=== PATIENT | female | born 1955 | race Caucasian/White ===

== ENCOUNTER → 2016-08-25 | Outpatient (CLI) | payer BC ==
[~2016-08-25] MED LIST: ACYC1CAP8 PO; ASPEC325 PO; ATORVASTATIN PO; CALC1CHW57 PO; CZR50 PO; DESO0.0516 TOP; DORZ1SOL6 OPB; GLIM1TAB2 PO; LEVO75TA33 PO; METF-383 PO; anastrozole PO; timolol OPB
[2016-08-25 13:23] VITALS: BP 125/76; PULSE 77; TEMP 36.6; O2SAT 98
--- NOTE | 2016-08-25 16:44 | Radiation Oncology Follow-Up ---
Radiation Oncology Follow-Up Date of Visit Aug 25, 2016. Reason For Visit Annual follow-up Radiation Completion Date 02/22/2013 Diagnosis (1) Intraductal carcinoma in situ of right breast Status: Resolved Onset Date: 11/08/2012 Stage: 0 Permanent Comment: Abnormal right breast mammogram Biopsy-positive for DCIS Status post lumpectomy with no residual tumor stage pTis NXMX Estrogen receptor positive, progesterone receptor positive Status post completion of radiation therapy 02/22/2013 received 3850 cGy utilizing accelerated partial breast treatment Last Edited By: Daisy Victor on Sep 03, 2015 13:37 Interim History She's been doing well over this past year. She denies any changes to her breast. She has noted no masses or tenderness no change in the axilla. She is up-to-date on mammography. She is on anastrozole and denies side effects. She is up-to-date on gynecologic exams. She now has a new primary care physician. And we're following with Dr. Isaias Templeton. Allergies Coded Allergies: Dorzolamide (Verified Allergy, Unknown, EYE LID SWELLING, 11/21/12) Latanoprost (Verified Allergy, Unknown, EYE LID SWELLING, 11/21/12) Penicillins (Verified Allergy, Unknown, 11/08/12) Thimerosal (Verified Allergy, Unknown, 11/08/12) Timolol (Verified Allergy, Unknown, EYE LID SWELLING, 11/21/12) Home Medications Scheduled Acyclovir (Zovirax), 200 MG PO Q4HR PRN Aspirin (Aspirin *), 325 MG PO DAILY Calcium W/ Vitamins D & K (Calcium + D), 2 TAB PO DAILY Dorzolamide Hcl-Timolol Maleat (Cosopt Oph), 1 DROP OPB BID Glimepiride (Glimepiride), 2 MG PO DAILY Levothyroxine (Levoxyl), 75 MCG PO DAILY Losartan Potassium (Cozaar), 1 TAB PO DAILY Metformin Hcl (Glucophage), 1,000 MG PO BIDM [Atorvastatin], 40 MG PO DAILY [anastrozole], 1 MG PO DAILY Scheduled PRN Desonide (Desonide), 0.05 % TOP BID PRN for rash Review of Systems Gastrointestinal: Symptoms: WNL GI Comments: constipation every few weeks Oral: Symptoms: No Problems Respiratory: Symptoms: WNL Urinary: Symptoms: WNL Skin: Symptoms: No Problems Breast: Right Upper Arm Measurement: 36.5 Right Mid Arm Measurement: 25.0 Right Wrist Measurement: 16.0 Left Upper Arm Measurement: 35.0 Left Mid Arm Measurement: 24.5 Left Wrist Measurement: 16.5 Arm Dominence: Right Physical Exam Vital Signs Date Time Temp Pulse Resp B/P Pulse Ox O2 Delivery O2 Flow Rate FiO2 08/25/16 13:23 36.6 77 18 125/76 98 Pain: Pain Duration: Constant - knows its always there Side: Right Pain Location: None Patient Pain Scale: 0 - 10 Initial Pain Intensity: 0.0 Pain Description: Dull, Aching Fatigue: None General Appearance: no apparent distress Eyes: normal inspection, EOMI ENT: normal ENT inspection, hearing grossly normal Neck: no adenopathy, thyroid normal Respiratory/Chest: lungs clear, no respiratory distress, no accessory muscle use Breast: Breast examination reveals well-healed incision of the right breast. There are no masses or tenderness no axillary adenopathy. She has no skin retractions or nipple changes. There is a tiny area of telangiectasia medial portion of the incision. Using the [place] score cosmesis she has an excellent outcome. Left breast no masses or tenderness and no axillary adenopathy. Cardiovascular: regular rate, rhythm, no gallop, no murmur Abdomen: non tender, soft Extremities: no pedal edema Neurologic/Psychiatric: no motor/sensory deficits, alert, normal mood/affect Skin: warm/dry Lymphatic: no adenopathy Additional Studies BILATERAL DIGITAL DIAGNOSTIC MAMMOGRAM WITH CAD: 11/29/2015 CLINICAL HISTORY: History right breast cancer status post lumpectomy and radiation therapy. Here for short interval follow-up. Comparison is made to exams dated: 05/20/2015 mammogram, 11/16/2014 mammogram, 11/14 mammogram, 05/18/2014 mammogram, 05/16/2013 mammogram, and 10/11/2012 mammogram - [facility]. FINDINGS: Bilateral CC and MLO views and spot magnification right cc and ML views were obtained. There are scattered areas of fibroglandular density in both breasts. Current study was also evaluated with a Computer Aided Detection (CAD) system. Again noted are post surgical changes in the right anterior breast from prior lumpectomy. Spot magnification views of the lumpectomy bed again demonstrate coarse benign dystrophic calcifications. Additionally, two clusters of approximately 2 punctate benign-appearing calcifications seen posterior to the surgical clips are also stable compared to spot magnification views dating back to at least May 2014 and are therefore felt to be benign. The remainder of both breasts are stable compared to prior exams, without suspicious masses, calcifications, or areas of architectural distortion noted. Other scattered benign-appearing calcifications do not appear significantly changed. IMPRESSION: ACR BI-RADS CATEGORY 2: BENIGN Benign-appearing calcifications at the lumpectomy bed in the right breast are stable and considered benign and felt to represent fat necrosis. There is no mammographic evidence of malignancy in either breast. Recommend routine bilateral mammograms in one year. The patient has been verbally notified of the results. Approximately 10% of breast cancers are not detected with mammography. A negative mammographic report should not delay biopsy if a clinically suggestive mass is present. Amanda Christopher M.D. ah/:11/29/2015 10:25:01 Ornamenter: Fatuma ENRIQUEZ(Demarco)(M), [facility] letter sent: Normal 1/2 BI-RADS Code: ACR BI-RADS Category 2: Benign Dictated by: Amanda Christopher MD Signed by: Amanda Christopher MD Assessment & Plan Plan: Continue with scheduled mammography. She'll be having a mammogram in November. Continue regular follow-up with medical oncology, primary care physician, and special educator. We asked her to return to our office in 1 year. We discussed at that time she'll be discharged from our service. She may call our office if she has any questions or concerns in the interim. Total Time In Follow-Up I spent 15 minutes speaking to the patient performing examination. I spent 15 minutes reviewing information and completing this note. Copy To Cathie Mustaaf M.D.; Isaias Templeton M.D.(DAVEY); Shania Coronel CRNP
== END | disposition home or self-care (01) ==
LOC: C.ONC 13:10
PROVIDERS: ATTEND Radiology Radiation Oncology
DX: Z08 Encounter for follow-up examination after completed treatment for malignant neoplasm (principal); Z92.3 Personal history of irradiation; Z85.3 Personal history of malignant neoplasm of breast

== ENCOUNTER → 2016-08-26 | Outpatient (CLI) | payer BC ==
[~2016-08-26] MED LIST changes: -timolol OPB
== END | disposition home or self-care (01) ==
LOC: C.PAPS 15:58
PROVIDERS: ATTEND Obstetrics & Gynecology
DX: C50.519 Malignant neoplasm of lower-outer quadrant of unspecified female breast (principal); Z01.411 Encounter for gynecological examination (general) (routine) with abnormal findings; N95.8 Other specified menopausal and perimenopausal disorders; N95.2 Postmenopausal atrophic vaginitis

== ENCOUNTER → 2017-03-12 | Outpatient (CLI) | payer BC ==
--- NOTE | 2017-03-12 15:33 | MAMMOGRAPHY REPORT ---
BILATERAL DIGITAL SCREENING MAMMOGRAM TOMOSYNTHESIS WITH CAD: 03/12/2017 CLINICAL HISTORY: Asymptomatic. Personal history of breast cancer. TECHNIQUE: Breast tomosynthesis in addition to standard 2D mammography was performed. Current study was also evaluated with a Computer Aided Detection (CAD) system. COMPARISON: Comparison is made to exams dated: 11/29/2015 mammogram, 05/20/2015 mammogram, 11/16/2014 ma mmogram, 05/18/2014 mammogram, 11/14/2013 mammogram, and 05/16/2013 mammogram - [facility]. BREAST COMPOSITION: There are scattered areas of fibroglandular density in both breasts. FINDINGS: No suspicious masses, calcifications, or areas of architectural distortion are noted in ei ther breast. There has been no significant interval change compared to prior exams. There are stable post surgical changes in the right subareolar breast, including stable architectural distortion, maribell gical clips, and benign coarse dystrophic calcifications at the surgical bed. A linear scar marker d enotes a scar on the right anterior breast. IMPRESSION: ACR BI-RADS CATEGORY 2: BENIGN There is no mammographic evidence of malignancy. A 1 year screening mammogram is recommended. The pa tient will receive written notification of the results. Approximately 10% of breast cancers are not detected with mammography. A negative mammographic report should not delay biopsy if a clinically suggestive mass is present. Amanda Christopher M.D. /:03/12/2017 12:16:04 General Purchasing Agent: Fatuma ELDRIDGE)(Massiel), [facility] letter sent: Normal 1/2 BI-RADS Code: ACR BI-RADS Category 2: Benign
== END | disposition home or self-care (01) ==
LOC: C.MAMM 08:37
PROVIDERS: ATTEND Obstetrics & Gynecology
DX: Z12.31 Encounter for screening mammogram for malignant neoplasm of breast (principal); Z85.3 Personal history of malignant neoplasm of breast

== ENCOUNTER → 2017-08-26 | Outpatient (CLI) | payer BC ==
[2016-08-25 13:23] VITALS: BP 125/76; PULSE 77
[~2017-08-26] MED LIST changes: +ACYC-57 PO; -ACYC1CAP8 PO; +CHOL2000 PO; +EMPA1TAB PO; +LRS10 PO
[2017-08-26 13:04] VITALS: BP 118/86; PULSE 100; TEMP 36.9; O2SAT 97
--- NOTE | 2017-08-26 13:45 | Radiation Oncology Follow-Up ---
Radiation Oncology Follow-Up Date of Visit Aug 26, 2017. Reason For Visit Annual follow-up Radiation Completion Date APBI 02/22/13 Diagnosis (1) Intraductal carcinoma in situ of right breast Status: Resolved Onset Date: 11/08/2012 Stage: 0 Permanent Comment: Abnormal right breast mammogram Biopsy-positive for DCIS Status post lumpectomy with no residual tumor stage pTis NXMX Estrogen receptor positive, progesterone receptor positive Status post completion of radiation therapy 02/22/2013 received 3850 cGy utilizing accelerated partial breast treatment Last Edited By: Daisy Victor on Sep 03, 2015 13:37 Interim History She's been doing well over this past year. She denies any changes to her breast. She is noted no masses or tenderness no change in the axilla. She's had no swelling of her arm. She is up-to-date on mammography. She's been having problems with cramping of her shins and calves. She has discussed this with her primary care physician. He increased vitamin D and that is helping. Charley horses occur mainly at night. Allergies Coded Allergies: Dorzolamide (Verified Allergy, Unknown, EYE LID SWELLING, 11/21/12) Latanoprost (Verified Allergy, Unknown, EYE LID SWELLING, 11/21/12) Penicillins (Verified Allergy, Unknown, 11/08/12) Thimerosal (Verified Allergy, Unknown, 11/08/12) Timolol (Verified Allergy, Unknown, EYE LID SWELLING, 11/21/12) Home Medications Scheduled Acyclovir (Zovirax), 200 MG PO Q4HR PRN Aspirin (Aspirin *), 325 MG PO DAILY Baclofen (Baclofen), 1 TAB PO TID Calcium W/ Vitamins D & K (Calcium + D), 2 TAB PO DAILY Cholecalciferol (Vitamin D3), 1 CAP PO DAILY Empagliflozin (Jardiance), 1 TAB PO DAILY Glimepiride (Glimepiride), 2 MG PO DAILY Levothyroxine (Levoxyl), 75 MCG PO DAILY Losartan Potassium (Cozaar), 1 TAB PO DAILY Metformin Hcl (Glucophage), 1,000 MG PO BIDM [Atorvastatin], 40 MG PO DAILY [anastrozole], 1 MG PO DAILY Scheduled PRN Desonide (Desonide), 0.05 % TOP BID PRN for rash Review of Systems Gastrointestinal: Symptoms: Constipation GI Comments: Chronic constipation manageable at home; Oral: Symptoms: No Problems Respiratory: Symptoms: WNL Urinary: Symptoms: WNL Skin: Symptoms: No Problems Breast: Right Upper Arm Measurement: 38.8 Right Mid Arm Measurement: 27.5 Right Wrist Measurement: 16.3 Left Upper Arm Measurement: 37.3 Left Mid Arm Measurement: 27.0 Left Wrist Measurement: 16.5 Arm Dominence: Right Physical Exam Vital Signs Date Time Temp Pulse Resp B/P (MAP) Pulse Ox O2 Delivery O2 Flow Rate FiO2 08/26/17 13:04 36.9 100 20 118/86 97 Fatigue: None General Appearance: no apparent distress Eyes: normal inspection, EOMI ENT: normal ENT inspection, hearing grossly normal Neck: no adenopathy, thyroid normal Respiratory/Chest: lungs clear, no respiratory distress, no accessory muscle use Breast: Breast examination reveals well-healed incisions of the right breast. There are no masses or tenderness and no axillary adenopathy. There is noted mild asymmetry. There are no fibrous changes. Slight telangiectasia. She has tattoos from prior treatment positioning. Using the [place] score cosmesis she has a good outcome. The left breast showed no masses or tenderness and no axillary adenopathy. Cardiovascular: regular rate, rhythm, no gallop, no murmur Extremities: no pedal edema Neurologic/Psychiatric: no motor/sensory deficits, alert, normal mood/affect Skin: warm/dry Pain Management Patient Reports Pain: No Side: Right Pain Location: Calf Patient Preferred Pain Scale: 0 - 10 Initial Pain Intensity: 0.0 Pain Management Plan Pain management is not required by our office. She is following with Dr. Templeton. Vitamin D has been increased and this is helping. Laboratory Laboratory Results: not applicable Pathology Pathology Results: not applicable Imaging Imaging Studies: were reviewed, and pertinent findings noted below Imaging Comments Patient: TYRESE PEÑALOZA [facility] Rec: [id number] Address1: [address] [facility] [address] Address[address]: Acct ID: [id number] Date: 1955 Sex: F Ref Phy: Cathie Ha M.D. Att Phy: Cathie Ha M.D. Grisel Phy: Isaias Templeton M.D.(DAVEY) Inter Phy: Amanda Christopher MD [facility] Zip: [place] [address] SC: [facility] Report #: [id number] Beader: VICENTE Diagnosis: ASYMPTOMATIC, HX OF BREAST CANCER Service Date: 03/12/17 MNE: [id number] Ordering Dr: Cathie Ha M.D. CC: Cathie Ha M.D. CONF: DICTATED BY: Amanda Christopher MD MAMMOGRAPHY REPORT BILATERAL DIGITAL SCREENING MAMMOGRAM TOMOSYNTHESIS WITH CAD: 03/12/2017 CLINICAL HISTORY: Asymptomatic. Personal history of breast cancer. TECHNIQUE: Breast tomosynthesis in addition to standard 2D mammography was performed. Current study was also evaluated with a Computer Aided Detection (CAD ) system. COMPARISON: Comparison is made to exams dated: 11/29/2015 mammogram, 05/20/2015 mammogram, 11/16/2014 mammogram, 05/18/2014 mammogram, 11/14/2013 mammogram, and 05/16 mammogram - [facility]. BREAST COMPOSITION: There are scattered areas of fibroglandular density in both breasts. FINDINGS: No suspicious masses, calcifications, or areas of architectural distortion are noted in either breast. There has been no significant interval change compared to prior exams. There are stable post surgical changes in the right subareolar breast, including stable architectural distortion, surgical clips, and benign coarse dystrophic calcifications at the surgical bed. A linear scar marker denotes a scar on the right anterior breast. IMPRESSION: ACR BI-RADS CATEGORY 2: BENIGN There is no mammographic evidence of malignancy. A 1 year screening mammogram is recommended. The patient will receive written notification of the results. Approximately 10% of breast cancers are not detected with mammography. A negative mammographic report should not delay biopsy if a clinically suggestive mass is present. Amanda Christopher M.D. ah/:03/12/2017 12:16:04 Electric Container Tester: Fatuma ELDRIDGE)(M), [facility] letter sent: Normal 1/2 BI-RADS Code: ACR BI-RADS Category 2: Benign Dictated by: Amanda Christopher MD Signed by: Amanda Christopher MD Assessment & Plan Plan: She will continue annual mammography. Continue regular follow-up with Dr. Templeton. She also follows with medical oncology and her director behavioral health. We discussed stretching exercises to help her calf discomfort. A follow-up appointment with our office was not given. She may call if she has any questions or concerns we will be happy to see her. Total Time In Follow-Up I spent 15 minutes speaking to the patient performing examination. I spent 15 minutes reviewing information and completing this note. Copy To Isaias Templeton M.D.(DAVEY); Shania Coronel CRNP
== END | disposition home or self-care (01) ==
LOC: C.ONC 12:41
PROVIDERS: ATTEND Physician Assistant Medical
DX: Z08 Encounter for follow-up examination after completed treatment for malignant neoplasm (principal); Z92.3 Personal history of irradiation; Z85.3 Personal history of malignant neoplasm of breast

== ENCOUNTER → 2017-09-08 | Outpatient (CLI) | payer BC | END | disposition home or self-care (01) | LOC: C.PAPS 17:56 | PROVIDERS: ATTEND Obstetrics & Gynecology | DX: Z01.419 Encounter for gynecological examination (general) (routine) without abnormal findings (principal); C50.519 Malignant neoplasm of lower-outer quadrant of unspecified female breast; N95.2 Postmenopausal atrophic vaginitis ==

== ENCOUNTER 2018-02-25 10:30 | Inpatient (IN) | payer BC ==
[~2018-02-25] VITALS: Ht 149.9 cm; Wt 87.6 kg
[~2018-02-25 10:30] MED LIST changes: -DORZ1SOL6 OPB
[2018-02-25] MEDS ORDERED: SODIUM CHLORIDE 0.9% 1000ML 500 ML IV STA (10:51)
[2018-02-25] MEDS ORDERED: ONDANSETRON INJ 2 MG/ML 2 ML VIAL IV STA (10:51)
[2018-02-25] MEDS ORDERED: OPTIRAY 320 IV PRN (11:00)
[2018-02-25 11:10] LABS: BASO % 0.4 %; BASO ABS # 0.04 K/uL (0-0.2); EOS % 2.1 %; HEMATOCRIT 37.4 % (37-47); HEMOGLOBIN 12.6 g/dL (12.0-16.0); IG# 0.15 K/uL (0.00-0.02); LYMPH % 17.3 %; LYMPH ABS # 1.65 K/uL (1.2-3.4); MEAN CELL VOLUME 81.1 fL (80-100); MEAN CORPUSCULAR HEMOGLOBIN 27.3 pg (25-34); MEAN CORPUSCULAR HGB CONC 33.7 g/dl (32-36); MEAN PLATELET VOLUME 9.3 fL (7.4-10.4); MONO % 8.3 %; MONO ABS # 0.79 K/uL (0.11-0.59); NEUT % 70.3 %; NEUT ABS # 6.73 K/uL (1.4-6.5); PLATELET COUNT 376 K/uL (130-400); RED CELL DISTRIBUTION WIDTH CV 14.2 % (11.5-14.5); RED CELL DISTRIBUTION WIDTH SD 42.2 fL (36.4-46.3); WHITE BLOOD COUNT 9.56 K/uL (4.8-10.8)
[2018-02-25 11:11] LABS: PTT PATIENT 26.6 SECONDS (21.0-31.0)
[2018-02-25 11:22] LABS: ALBUMIN 3.1 gm/dl (3.4-5.0); CALCIUM 9.2 mg/dl (8.5-10.1); CREATININE 1.09 mg/dl (0.60-1.20); POTASSIUM 2.5 mmol/L (3.5-5.1)
[2018-02-25] MEDS ORDERED: POTASSIUM CHLORIDE 10 MEQ / 100ML WTR IV STA (11:28)
[2018-02-25] MEDS ORDERED: POTASSIUM CHLORIDE 10 MEQ TABCR PO STA ×2 (11:28→17:43)
[2018-02-25 11:31] LABS: TOTAL PROTEIN 7.5 gm/dl (6.4-8.2)
--- NOTE | 2018-02-25 11:45 | DIAGNOSTIC IMAGING REPORT ---
CHEST ONE VIEW PORTABLE CLINICAL HISTORY: 62 years-old Female presenting with EVALUATE ALTERED MENTAL STATUS/WEAKNESS. TECHNIQUE: Portable upright AP view of the chest was obtained. COMPARISON: None. FINDINGS: Cardiomediastinal silhouette normal. Mildly low lung volumes. No focal opacity. No large effusion or pneumothorax. Osseous structures normal. Upper abdomen normal. IMPRESSION: 1. No acute cardiopulmonary disease. Electronically signed by: Jignesh Chapa M.D. 02/25/2018 11:43 AM Dictated Date/Time: 02/25/2018 11:43 AM
--- NOTE | 2018-02-25 12:08 | DIAGNOSTIC IMAGING REPORT ---
ABD/PELVIS IV CONTRAST ONLY CT DOSE: 558.06 mGy.cm HISTORY: ABD PAIN, POSS divertic, IV CONTRAST ONLY TECHNIQUE: Multiaxial CT images of the abdomen and pelvis were performed following the use of intravenous contrast. A dose lowering technique was utilized adhering to the principles of ALARA. COMPARISON STUDY: 01/25/2018 FINDINGS: Lung bases are clear. Liver spleen and pancreas are uniform. A small hiatal hernia. Trace amount of contrast-like material within the distal esophagus and gastric fundus. Large gallstone the region of the gallbladder neck. Pancreas demonstrates no significant abnormality. The adrenal glands are normal. The kidneys are negative for hydronephrosis. Enhancement characteristics are uniform. Findings of acute proximal to mid sigmoid diverticulitis. Moderate pericolonic infiltrative change. Mild wall thickening of the more distal or lower aspect of the sigmoid and rectum suggesting nonspecific colitis. No significant free fluid within the pelvic cul-de-sac. Bladder is midline. IMPRESSION: 1. Acute proximal to mid sigmoid diverticulitis superimposed upon mild generalized sigmoid colitis. 2. No evidence for abscess collection or obstruction. 3. Large gallstone. The above report was generated using voice recognition software. It may contain grammatical, syntax or spelling errors. Electronically signed by: Catrachito Nevarez M.D. 02/25/2018 12:06 PM Dictated Date/Time: 02/25/2018 11:59 AM
[2018-02-25] MEDS ORDERED: METRONIDAZOLE 500MG / 100ML NSS IV STA (12:10)
[2018-02-25] MEDS ORDERED: CIPROFLOXACIN 400MG / 200ML D5W IV STA (12:10)
[2018-02-25] MEDS ORDERED: ACETAMINOPHEN 325 MG TAB PO PRN (13:15)
[2018-02-25] MEDS ORDERED: DICY10CA12 PO (13:19)
[2018-02-25 13:20] VITALS: O2SAT 97; Ht 149.9 cm; Wt 87.6 kg
[2018-02-25] MEDS ORDERED: FIBER PO ×2 (13:34)
--- NOTE | 2018-02-25 13:58 | Gastrointestinal Consultation ---
Gastrointestinal Consultation Date of Consultation: Feb 25, 2018 Consulting Physician: Caesar Chow MD Reason for Consultation: Bloody diarrhea History of Present Illness Patient is a 62 year old female presenting to the ED after a syncopal episode, with an approximate two month hx of bloody diarrhea. She had an initial equivocally positive test for cdiff in December and was prescribed a course of Flagyl. She then was in to see Stacia Rdz NP in our office, for ongoing symptoms. CT scan showed early diverticulitis and she was prescribed a 10 day course of cipro and flagyl. Her symptoms improved only somewhat with the antibiotics, and once she finished them the symptoms worsened again. She reports BMs 10-12 times daily, passing small bits of loose stool and blood. She reports sharp bilateral lower quadrant abdominal pain that has been progressive in the past 2 weeks. She denies any n/v or heartburn. Her appetite is poor and she has lost 20 pounds in the past 6-7 weeks. Last colonoscopy was in [address] Felton, which was normal. Labs today show a normal WBC of 9.56, Hgb of 12.6, BUN of 10 and creat of 1.09. Potassium is low at 2.5. CT scan a/p, shows acute proximal to mid sigmoid diverticulitis superimposed on mild generalized sigmoid colitis. There is a family hx of Crohn's disease in a sister and a cousin. Past Medical/Surgical History Past Medical History: DM, Dyslipidemia, HTN, Hypothyroidism, PE/DVT, Ductal CA in situ of breast Past Surgical History: Tonsillectomy, Appendectomy, Breast biopsy Family History Bleeding disorder Blood clots BROTHER, Crohn's disease SISTER Thromboembolic disease Toxic megacolon FATHER, Social History Smoking Status: Never Smoker Allergies Coded Allergies: Dorzolamide (Verified Allergy, Unknown, EYE LID SWELLING, 02/25/18) Latanoprost (Verified Allergy, Unknown, EYE LID SWELLING, 02/25/18) Penicillins (Verified Allergy, Unknown, 02/25/18) Thimerosal (Verified Allergy, Unknown, 02/25/18) Timolol (Verified Allergy, Unknown, EYE LID SWELLING, 02/25/18) Current Medications Home Meds and Scripts Medications Dose Route/Sig Max Daily Dose Days Date Category Fiber Laxative (Fiber) Ea 1 Tab PO PM 02/25/18 Reported Fiber Laxative (Fiber) Ea 2 Tab PO QAM 02/25/18 Reported Dicyclomine Hcl 10 Mg Cap 1 Cap PO BID 30 02/25/18 Reported Baclofen 10 Mg Tab 1 Tab PO TID PRN 08/26/17 Reported Vitamin D3 (Cholecalciferol) 2,000 Unit Cap 1 Cap PO DAILY 30 08/26/17 Reported Jardiance (Empagliflozin) 10 Mg Tab 1 Tab PO DAILY 08/26/17 Reported Calcium + D (Calcium W/ Vitamins D & K) 1 Chw Chw 2 Tab PO DAILY 09/05/14 Reported [anastrozole] 1 Mg PO DAILY 03/23/14 Reported Cozaar (Losartan Potassium) 50 Mg Tab 1 Tab PO DAILY 09/12/13 Reported [Atorvastatin] 40 Mg PO DAILY 09/12/13 Reported Glimepiride 1 Mg Tab 2 Mg PO DAILY 01/18/13 Reported Glucophage (Metformin Hcl) 850 Mg Tab 1,000 Mg PO BIDM 12/12/12 Reported Aspirin * (Aspirin) 325 Mg Tab 325 Mg PO DAILY 02/09/09 Reported Zovirax (Acyclovir) 200 Mg Cap 200 Mg PO Q4HR PRN 02/09/09 Reported Levoxyl (Levothyroxine Sodium) 0.075 Mg Tab 75 Mcg PO DAILY 02/09/09 Reported Review of Systems Constitutional: No fever, No chills Eyes: No worsening of vision, No eye pain ENT: + problem reported (oral ulcer, bottom lip), No hearing loss Respiratory: No cough, No shortness of breath Cardiac: No chest pain Abdomen: + see HPI Musculoskeletal: No joint pain, No muscle pain Female : No dysuria Neuro: No memory loss Psych: No problem reported Heme: + abnormal bleeding/bruising Endo: No excessive thirst, No excessive urination Skin: No rash, No itch Physical Exam Date Time Temp Pulse Resp B/P (MAP) Pulse Ox O2 Delivery O2 Flow Rate FiO2 02/25/18 13:10 97 26 155/85 100 Room Air 02/25/18 11:23 22 99 Room Air 02/25/18 11:20 95 166/93 107 161/90 110 155/82 02/25/18 11:02 103 02/25/18 10:45 98 Room Air 02/25/18 10:39 36.6 102 18 140/115 97 Room Air 163/105 General Appearance: no apparent distress Eyes: normal inspection ENT: hearing grossly normal, + pertinent finding (oral ulcer, bottom lip) Neck: supple Respiratory/Chest: lungs clear, normal breath sounds, no respiratory distress Cardiovascular: regular rate, rhythm Abdomen: soft, no organomegaly, + abnormal bowel sounds (hyperactive), + tenderness (RLQ/LLQ) Extremities: no pedal edema Neurologic/Psych: alert, normal mood/affect Skin: warm/dry, no rash Laboratory Results Last 24 Hours Test 02/25/18 10:40 02/25/18 10:59 02/25/18 11:25 White Blood Count 9.56 K/uL Red Blood Count 4.61 M/uL Hemoglobin 12.6 g/dL Hematocrit 37.4 % Mean Corpuscular Volume 81.1 fL Mean Corpuscular Hemoglobin 27.3 pg Mean Corpuscular Hemoglobin Concent 33.7 g/dl Platelet Count 376 K/uL Mean Platelet Volume 9.3 fL Neutrophils (%) (Auto) 70.3 % Lymphocytes (%) (Auto) 17.3 % Monocytes (%) (Auto) 8.3 % Eosinophils (%) (Auto) 2.1 % Basophils (%) (Auto) 0.4 % Neutrophils # (Auto) 6.73 K/uL Lymphocytes # (Auto) 1.65 K/uL Monocytes # (Auto) 0.79 K/uL Eosinophils # (Auto) 0.20 K/uL Basophils # (Auto) 0.04 K/uL RDW Standard Deviation 42.2 fL RDW Coefficient of Variation 14.2 % Immature Granulocyte % (Auto) 1.6 % Immature Granulocyte # (Auto) 0.15 K/uL Prothrombin Time 10.4 SECONDS Prothromb Time International Ratio 1.0 Activated Partial Thromboplast Time 26.6 SECONDS Partial Thromboplastin Ratio 1.0 Sodium Level 138 mmol/L Potassium Level 2.5 mmol/L Chloride Level 103 mmol/L Carbon Dioxide Level 20 mmol/L Anion Gap 15.0 mmol/L Blood Urea Nitrogen 10 mg/dl Creatinine 1.09 mg/dl Est Creatinine Clear Calc Drug Dose 49.7 ml/min Estimated GFR () 62.6 Estimated GFR (Non- 54.0 BUN/Creatinine Ratio 9.3 Random Glucose 127 mg/dl Calcium Level 9.2 mg/dl Magnesium Level 1.9 mg/dl Total Bilirubin 0.6 mg/dl Aspartate Amino Transf (AST/SGOT) 19 U/L Alanine Aminotransferase (ALT/SGPT) 11 U/L Alkaline Phosphatase 92 U/L Total Protein 7.5 gm/dl Albumin 3.1 gm/dl Globulin 4.4 gm/dl Albumin/Globulin Ratio 0.7 Thyroid Stimulating Hormone (TSH) 3.350 uIu/ml Free Thyroxine 1.94 ng/dl Bedside Troponin I < 0.030 ng/ml Urine Color YELLOW Urine Appearance CLEAR Urine pH 6.5 Urine Specific [place] 1.022 Urine Protein TRACE Urine Glucose (UA) 3+ Urine Ketones TRACE Urine Occult Blood NEG Urine Nitrite NEG Urine Bilirubin NEG Urine Urobilinogen NEG Urine Leukocyte Esterase NEG Urine WBC (Auto) 1-5 /hpf Urine RBC (Auto) 0-4 /hpf Urine Hyaline Casts (Auto) 0 /lpf Urine Epithelial Cells (Auto) 10-20 /lpf Urine Bacteria (Auto) NEG Urine Yeast (Auto) BUDDING Impression Patient is a 62 year old female admitted with bloody diarrhea and imaging suggestive of diverticulitis Plan Will check another stool for Cdiff. Recommend broad spectrum antibiotics. Monitor and correct electrolytes as appropriate. Colonoscopy in 8 weeks for further evaluation I performed a history and physical examination of the patient, including specifically abdomen is soft, non distended. I have discussed the patient's management with Asia Amezcua PA-C. Please refer to the PA's note for the documented findings and plan of care. 62 F presented with abdominal pain, CT scan showed acute left sided diverticulitis with surrounding colitis. She has some diarrhea with minimal amount of blood. Her H/H is stable and normal with no leukocytosis. Treat with IV ABx. NPO today then clears tomorrow to allow bowel rest. Check C.diff Colonoscopy as OP in 8 weeks.
[2018-02-25 14:35] VITALS: O2SAT 97
--- NOTE | 2018-02-25 14:41 | EMERGENCY ROOM VISIT NOTE ---
History Report prepared by Janett: Ksenia Catalan Under the Supervision of: Dr. John Boyd M.D. First contact with patient: 10:41 Chief Complaint: SYNCOPE (NEAR SYNCOPE) Stated Complaint: NEAR SYNCOPE Nursing Triage Summary: pt reports she was at work (works at [employer]) started to feel like she was going to pass out went and sat down no loc. pt reports legs feels numb and tingly. pt has hx of diabetes, htn, and recently dx with diverticulitis has colonoscopy scheduled next week. History of Present Illness The patient is a 62 year old female who presents to the Emergency Room with complaints of a sudden and currently resolved near syncopal episode that occurred prior to arrival. The patient states that she was standing at work doing her normal work and suddenly felt dizzy. She states that she grabbed the counter and then tried to sit down. She states that she sat down for awhile and as soon as she sat up the episode began to occur again. The patient denies losing consciousness, chest pain, nausea, numbness in her face, weakness in one arm or leg that stood out to her. The patient states that she did feel short of breath and her hands and feet were numb. She states that yesterday she had chills, but states that she recorded her temperature last night and she did not have a fever. The patient states that she has not been eating normally recently. The patient also denies coughing more than usual. She states that she recently had diverticulitis and she currently has 10-12 bowel movements a day that have a large amount of blood in them. She states that she has had bloody bowel movements for several weeks now. She states that she also has pain in her stomach from the diverticulitis. The patient states that she was previously on antibiotics for the diverticulitis, and reports having a colonoscopy scheduled for four days from now. The patient states that she takes aspirin because of a blood clot that she had several years ago. She states that she is allergic to sulfa drugs. The patient states that her PCP is Dr. Templeton with [facility]. Source of History: patient Onset: prior to arrival Position: other (generalized ) Quality: other (near syncope) Timing: resolved Associated Symptoms: + chills, + SOB, + abdominal pain, + numbness (hands and feet), No LOC, No fevers, No cough, No chest pain, No nausea Review of Systems See HPI for pertinent positives & negatives. A total of 10 systems reviewed and were otherwise negative. Past Medical & Surgical Medical Problems: (1) Colitis (2) History of pulmonary embolus (PE) (3) HLD (hyperlipidemia) (4) HTN (hypertension) (5) Hypothyroidism (6) Intraductal carcinoma in situ of right breast (7) Obesity (BMI 30-39.9) (8) T2DM (type 2 diabetes mellitus) Surgical Problems: (1) History of appendectomy (2) History of lumpectomy of right breast (3) History of tonsillectomy (4) Normal colonoscopy Social History Smoking Status: Never Smoker Occupation Status: employed Current/Historical Medications Scheduled Acyclovir (Zovirax), 200 MG PO Q4HR PRN Aspirin (Aspirin *), 325 MG PO DAILY Calcium W/ Vitamins D & K (Calcium + D), 2 TAB PO DAILY Cholecalciferol (Vitamin D3), 1 CAP PO DAILY Dicyclomine Hcl (Dicyclomine Hcl), 1 CAP PO BID Empagliflozin (Jardiance), 1 TAB PO DAILY Fiber Laxative (Fiber Laxative), 2 TAB PO QAM Fiber Laxative (Fiber Laxative), 1 TAB PO PM Glimepiride (Glimepiride), 2 MG PO DAILY Levothyroxine (Levoxyl), 75 MCG PO DAILY Losartan Potassium (Cozaar), 1 TAB PO DAILY Metformin Hcl (Glucophage), 1,000 MG PO BIDM [Atorvastatin], 40 MG PO DAILY [anastrozole], 1 MG PO DAILY Scheduled PRN Baclofen (Baclofen), 1 TAB PO TID PRN for Pain Allergies Coded Allergies: Dorzolamide (Verified Allergy, Unknown, EYE LID SWELLING, 02/25/18) Latanoprost (Verified Allergy, Unknown, EYE LID SWELLING, 02/25/18) Penicillins (Verified Allergy, Unknown, 02/25/18) Thimerosal (Verified Allergy, Unknown, 02/25/18) Timolol (Verified Allergy, Unknown, EYE LID SWELLING, 02/25/18) Physical Exam Vital Signs Date Time Temp Pulse Resp B/P (MAP) Pulse Ox O2 Delivery O2 Flow Rate FiO2 02/25/18 14:12 94 02/25/18 13:10 97 26 155/85 100 Room Air 02/25/18 11:23 22 99 Room Air 02/25/18 11:20 95 166/93 107 161/90 110 155/82 02/25/18 11:02 103 02/25/18 10:45 98 Room Air 02/25/18 10:39 36.6 102 18 140/115 97 Room Air 163/105 Physical Exam GENERAL: Patient is in no acute distress. HEENT: No acute trauma, normocephalic atraumatic, mucous membranes moist, no nasal congestion, no scleral icterus. NECK: No stridor, no adenopathy, no meningismus, trachea is midline. LUNGS: Clear to auscultation bilaterally, no wheeze, no rhonchi, breath sounds equal. HEART: Mildly tachycardic with regular rhythm. No murmurs. ABDOMEN: Soft, bowel sounds positive, no hernias, no peritonitis. Diffusely mildly tender. EXTREMITIES: No cyanosis or edema, full range of motion of all the joints without pain or difficulty, no signs for acute trauma. NEUROLOGIC: Oriented x 3, no acute motor or sensory deficits, no focal weakness. SKIN: No rash, no jaundice, no diaphoresis. Medical Decision & Procedures ER Provider Diagnostic Interpretation: Radiology results as stated below per my review and radiologist interpretation: CHEST ONE VIEW PORTABLE CLINICAL HISTORY: 62 years-old Female presenting with EVALUATE ALTERED MENTAL STATUS/WEAKNESS. TECHNIQUE: Portable upright AP view of the chest was obtained. COMPARISON: None. FINDINGS: Cardiomediastinal silhouette normal. Mildly low lung volumes. No focal opacity. No large effusion or pneumothorax. Osseous structures normal. Upper abdomen normal. IMPRESSION: 1. No acute cardiopulmonary disease. Electronically signed by: Jignesh Chapa M.D. 02/25/2018 11:43 AM Dictated Date/Time: 02/25/2018 11:43 AM ABD/PELVIS IV CONTRAST ONLY CT DOSE: 558.06 mGy.cm HISTORY: ABD PAIN, POSS divertic, IV CONTRAST ONLY TECHNIQUE: Multiaxial CT images of the abdomen and pelvis were performed following the use of intravenous contrast. A dose lowering technique was utilized adhering to the principles of ALARA. COMPARISON STUDY: 01/25/2018 FINDINGS: Lung bases are clear. Liver spleen and pancreas are uniform. A small hiatal hernia. Trace amount of contrast-like material within the distal esophagus and gastric fundus. Large gallstone the region of the gallbladder neck. Pancreas demonstrates no significant abnormality. The adrenal glands are normal. The kidneys are negative for hydronephrosis. Enhancement characteristics are uniform. Findings of acute proximal to mid sigmoid diverticulitis. Moderate pericolonic infiltrative change. Mild wall thickening of the more distal or lower aspect of the sigmoid and rectum suggesting nonspecific colitis. No significant free fluid within the pelvic cul-de-sac. Bladder is midline. IMPRESSION: 1. Acute proximal to mid sigmoid diverticulitis superimposed upon mild generalized sigmoid colitis. 2. No evidence for abscess collection or obstruction. 3. Large gallstone. The above report was generated using voice recognition software. It may contain grammatical, syntax or spelling errors. Electronically signed by: Catrachito Nevarez M.D. 02/25/2018 12:06 PM Dictated Date/Time: 02/25/2018 11:59 AM Laboratory Results 02/25/18 10:40 Red Blood Count 4.61, Mean Corpuscular Volume 81.1, Mean Corpuscular Hemoglobin 27.3, Mean Corpuscular Hemoglobin Concent 33.7, Mean Platelet Volume 9.3, Neutrophils (%) (Auto) 70.3, Lymphocytes (%) (Auto) 17.3, Monocytes (%) (Auto) 8.3, Eosinophils (%) (Auto) 2.1, Basophils (%) (Auto) 0.4, Neutrophils # (Auto) 6.73, Lymphocytes # (Auto) 1.65, Monocytes # (Auto) 0.79, Eosinophils # (Auto) 0.20, Basophils # (Auto) 0.04 02/25/18 10:40 Test 02/25/18 10:40 02/25/18 10:59 02/25/18 11:25 White Blood Count 9.56 K/uL (4.8-10.8) Red Blood Count 4.61 M/uL (4.2-5.4) Hemoglobin 12.6 g/dL (12.0-16.0) Hematocrit 37.4 % (37-47) Mean Corpuscular Volume 81.1 fL (80-100) Mean Corpuscular Hemoglobin 27.3 pg (25-34) Mean Corpuscular Hemoglobin Concent 33.7 g/dl (32-36) Platelet Count 376 K/uL (130-400) Mean Platelet Volume 9.3 fL (7.4-10.4) Neutrophils (%) (Auto) 70.3 % Lymphocytes (%) (Auto) 17.3 % Monocytes (%) (Auto) 8.3 % Eosinophils (%) (Auto) 2.1 % Basophils (%) (Auto) 0.4 % Neutrophils # (Auto) 6.73 K/uL (1.4-6.5) Lymphocytes # (Auto) 1.65 K/uL (1.2-3.4) Monocytes # (Auto) 0.79 K/uL (0.11-0.59) Eosinophils # (Auto) 0.20 K/uL (0-0.5) Basophils # (Auto) 0.04 K/uL (0-0.2) RDW Standard Deviation 42.2 fL (36.4-46.3) RDW Coefficient of Variation 14.2 % (11.5-14.5) Immature Granulocyte % (Auto) 1.6 % Immature Granulocyte # (Auto) 0.15 K/uL (0.00-0.02) Prothrombin Time 10.4 SECONDS (9.0-12.0) Prothromb Time International Ratio 1.0 (0.9-1.1) Activated Partial Thromboplast Time 26.6 SECONDS (21.0-31.0) Partial Thromboplastin Ratio 1.0 Anion Gap 15.0 mmol/L (3-11) Est Creatinine Clear Calc Drug Dose 49.7 ml/min Estimated GFR () 62.6 Estimated GFR (Non- 54.0 BUN/Creatinine Ratio 9.3 (10-20) Calcium Level 9.2 mg/dl (8.5-10.1) Magnesium Level 1.9 mg/dl (1.8-2.4) Total Bilirubin 0.6 mg/dl (0.2-1) Aspartate Amino Transf (AST/SGOT) 19 U/L (15-37) Alanine Aminotransferase (ALT/SGPT) 11 U/L (12-78) Alkaline Phosphatase 92 U/L (45-117) Total Protein 7.5 gm/dl (6.4-8.2) Albumin 3.1 gm/dl (3.4-5.0) Globulin 4.4 gm/dl (2.5-4.0) Albumin/Globulin Ratio 0.7 (0.9-2) Thyroid Stimulating Hormone (TSH) 3.350 uIu/ml (0.300-4.500) Free Thyroxine 1.94 ng/dl (0.80-1.60) Bedside Troponin I < 0.030 ng/ml (0-0.045) Urine Color YELLOW Urine Appearance CLEAR (CLEAR) Urine pH 6.5 (4.5-7.5) Urine Specific [place] 1.022 (1.000-1.030) Urine Protein TRACE (NEG) Urine Glucose (UA) 3+ (NEG) Urine Ketones TRACE (NEG) Urine Occult Blood NEG (NEG) Urine Nitrite NEG (NEG) Urine Bilirubin NEG (NEG) Urine Urobilinogen NEG (NEG) Urine Leukocyte Esterase NEG (NEG) Urine WBC (Auto) 1-5 /hpf (0-5) Urine RBC (Auto) 0-4 /hpf (0-4) Urine Hyaline Casts (Auto) 0 /lpf (0-5) Urine Epithelial Cells (Auto) 10-20 /lpf (0-5) Urine Bacteria (Auto) NEG (NEG) Urine Yeast (Auto) BUDDING (NONE PRSENT) Laboratory results reviewed by me. Medications Administered Medications (Trade) Dose Ordered Sig/Phuong Route Start Time Stop Time Status Last Admin Dose Admin Sodium Chloride 500 ml @ 999 mls/hr Q31M STAT IV 02/25/18 10:51 02/25/18 11:21 DC 02/25/18 11:37 999 MLS/HR Ondansetron HCl (Zofran Inj) 4 mg NOW STAT IV 02/25/18 10:51 02/25/18 10:55 DC 02/25/18 11:36 4 MG Potassium Chloride (Klor-Con M10) 40 meq NOW STAT PO 02/25/18 11:28 02/25/18 11:29 DC 02/25/18 11:36 40 MEQ Potassium Chloride (KCL 10 mEq / WTR) 10 meq NOW STAT IV 02/25/18 11:28 02/25/18 11:29 DC 02/25/18 11:36 10 MEQ Ciprofloxacin/ Dextrose (Cipro / D5W) 400 mg NOW STAT IV 02/25/18 12:10 02/25/18 12:11 DC 02/25/18 13:10 400 MG Metronidazole (Flagyl / Nss) 500 mg NOW STAT IV 02/25/18 12:10 02/25/18 12:11 DC 02/25/18 13:09 500 MG ECG Per My Interpretation Indication: syncope (near syncope) Rate (beats per minute): 105 Rhythm: sinus tachycardia Findings: other (No ST elevation, no PVCs) ED Course 1044: The patient was evaluated in room B7. A complete history and physical exam was performed. 1051: Ordered Zofran Inj 4 mg IV and Sodium Chloride 500 ml @ 999 mls/hr IV. 1128: Ordered Potassium Chloride 10 meq IV and Potassium Chloride 40 meq PO. 1133: Orthostatic vital signs are negative. 1210: Ordered Metronidazole 500 mg IV and Ciprofloxacin/Dextrose 400 mg IV. 1215: I updated the patient. 1218: I spoke with Rhea Echavarria. She will evaluate the patient further. Medical Decision Possible differential diagnoses include: Anemia, dehydration, UTI, electrolyte imbalance, stroke, diverticulitis, and GI bleed. There is no leukocytosis or concerning anemia. No kidney failure. Potassium was quite low at 2.5. No hepatitis. The patient appears to be in a euthyroid state. EKG showed a sinus tachycardia, no acute ischemia. Cardiac enzyme testing 1 is not consistent with acute cardiac injury. Orthostatic vital signs were negative. Urinalysis does not show infection. Chest film does not show pneumonia or CHF. Abdominal and pelvis CT shows diverticulitis, no bowel obstruction, no mention of abscess. The patient received IV saline. She received IV and oral potassium. She was given IV Cipro and IV Flagyl. She received IV Zofran. The patient presents with a near syncopal episode. She has been having some bloody stool. She has diverticulitis by workup. She has a markedly low potassium. I do think a hospital stay is warranted. I spoke to the patient and case management. The on-call hospitalist was consulted. Medication Reconcilliation Current Medication List: was personally reviewed by me Blood Pressure Screening Patient's blood pressure: Elevated blood pressure (referred to hospitalist) Impression Primary Impression: Hypokalemia Additional Impressions: Near syncope Diverticulitis Bloody stool Scribe Attestation The scribe's documentation has been prepared under my direction and personally reviewed by me in its entirety. I confirm that the note above accurately reflects all work, treatment, procedures, and medical decision making performed by me. Departure Information Dispostion Being Evaluated By Hospitalist Referrals Isaias Templeton M.D.(DAVEY) (PCP) Patient Instructions My [facility] Problem Qualifiers
[2018-02-25 15:00] VITALS: BP 163/90; PULSE 93; TEMP 37; O2SAT 95
[2018-02-25] MEDS ORDERED: NSS + 20MEQ KCL 1000ML 1,000 ML IV SCH (15:00)
--- NOTE | 2018-02-25 15:21 | History and Physical ---
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 Sister and brother in law at bedside. Initially patient thought she picked up a, "GI bug," however symptoms continued. Presented to PCP office 01/05 in which there was concern for cdiff, patient placed on course of flagyl. Stool studies were indeterminate therefore referred to GI. At the time she was having bloody, bright red, mucous diarrhea, 10-15 episodes daily for 4 weeks. She also had lower abdominal discomfort, "like two fists," constant. On was seen by MARK Perera in which stool studies for enteric pathogens/cdiff were done and negative. CT scan of abd/pelvis showed early proximal sigmoid diverticulitis. She was placed on course of cipro/flagyl for 10 days with no relief. Further prescribed bentyl 10mg po bid prn which did alleviate abdominal discomfort. Today she was working in which she felt like she could, "pass out." Sx occurred while standing, therefore sat down, tried to stand again and became lightheaded. EMS was then summoned. She has been having blood, mucous, diarrhea for 9 weeks, 10-15 episodes daily. Complains of constant abdominal discomfort, lower, rated 5/10, nothing made worse, made better with bentyl. Has tried nothing OTC. Last new medication was Jardiance which started at end of November. Appetite overall decreased, nothing tastes good. Approx 20lb weight loss. Denies f/c/s, chest pain, sob, palpitations, nausea, emesis. Also complains of pins/needles sensation in fingers and toes for past 2- 3 days. Sister elicits she has history of Crohns disease. Patient is scheduled for outpatient colonoscopy on 03/01/18. In ED patient was noted to be hypokalemic, with potassium 2.5. Her hemoglobin and hematocrit was stable at 12 and 36, WBC 9.5, glucose 127, ecg noted sinus tachycardia with vent rate 105bpm, no st-twave changes noted. CT scan abdominal revealed sigmoid diverticulitis/colitis. She was given 40 Meq potassium orally and 10 meq via IV. Started on IV fluid as well as IV Cipro and Flagyl. She will be admitted for further assessment and treatment of Colitis and electrolyte abnormalities. Past Medical/Surgical History MMedical Problems: (1) History of pulmonary embolus (PE) Permanent Comment: dx in 2001, unprovoked Status: Chronic (2) HLD (hyperlipidemia) Status: Chronic (3) HTN (hypertension) Status: Chronic (4) Hypothyroidism Status: Chronic (5) Intraductal carcinoma in situ of right breast Permanent Comment: Abnormal right breast mammogram Biopsy-positive for DCIS Status post lumpectomy with no residual tumor stage pTis NXMX Estrogen receptor positive, progesterone receptor positive Status post completion of radiation therapy 02/22/2013 received 3850 cGy utilizing accelerated partial breast treatment Status: Resolved (6) Obesity (BMI 30-39.9) Status: Chronic (7) T2DM (type 2 diabetes mellitus) Status: Chronic Surgical Problems: (1) History of appendectomy Status: Chronic (2) History of lumpectomy of right breast Permanent Comment: + [facility]/[place] + in 10/2012 s/p RT Status: Chronic (3) History of tonsillectomy Status: Chronic (4) Normal colonoscopy Permanent Comment: Last in 2014, Dr. Zamudio Status: Chronic Family History Bleeding disorder Blood clots BROTHER, Crohn's disease SISTER Thromboembolic disease Toxic megacolon FATHER, Social History Smoking Status: Never Smoker Smokeless Tobacco Use: No Alcohol Use: none Drug Use: none Marital Status: single Housing status: lives alone Immunizations History of Influenza Vaccine: Yes Influenza Vaccine Date: Mar 29, 2017 History of Tetanus Vaccine?: Yes Tetanus Immunization Date: Jun 16, 2012 History of Pneumococcal: Yes History of Hepatitis B Vaccine: Yes Allergies Coded Allergies: Dorzolamide (Verified Allergy, Unknown, EYE LID SWELLING, 02/25/18) Latanoprost (Verified Allergy, Unknown, EYE LID SWELLING, 02/25/18) Penicillins (Verified Allergy, Unknown, 02/25/18) Thimerosal (Verified Allergy, Unknown, 02/25/18) Timolol (Verified Allergy, Unknown, EYE LID SWELLING, 02/25/18) Home Medications Scheduled Acyclovir (Zovirax), 200 MG PO Q4HR PRN Aspirin (Aspirin *), 325 MG PO DAILY Calcium W/ Vitamins D & K (Calcium + D), 2 TAB PO DAILY Cholecalciferol (Vitamin D3), 1 CAP PO DAILY Dicyclomine Hcl (Dicyclomine Hcl), 1 CAP PO BID Empagliflozin (Jardiance), 1 TAB PO DAILY Fiber Laxative (Fiber Laxative), 2 TAB PO QAM Fiber Laxative (Fiber Laxative), 1 TAB PO PM Glimepiride (Glimepiride), 2 MG PO DAILY Levothyroxine (Levoxyl), 75 MCG PO DAILY Losartan Potassium (Cozaar), 1 TAB PO DAILY Metformin Hcl (Glucophage), 1,000 MG PO BIDM [Atorvastatin], 40 MG PO DAILY [anastrozole], 1 MG PO DAILY Scheduled PRN Baclofen (Baclofen), 1 TAB PO TID PRN for Pain Review of Systems As noted per HPI, 10 systems reviewed and negative unless noted above. Physical Exam Vital Signs Date Time Temp Pulse Resp B/P (MAP) Pulse Ox O2 Delivery O2 Flow Rate FiO2 02/25/18 13:10 97 26 155/85 100 Room Air 02/25/18 11:23 22 99 Room Air 02/25/18 11:20 95 166/93 107 161/90 110 155/82 02/25/18 11:02 103 02/25/18 10:45 98 Room Air 02/25/18 10:39 36.6 102 18 140/115 97 Room Air 163/105 General Appearance: WD/WN, no apparent distress, + obese Head: normocephalic, atraumatic Eyes: normal inspection, sclerae normal ENT: normal ENT inspection, hearing grossly normal, pharynx normal, + pertinent finding (Mucous membranes moist) Neck: supple, no adenopathy, thyroid normal, no JVD, no carotid bruits, trachea midline Respiratory/Chest: chest non-tender, lungs clear, normal breath sounds, no respiratory distress, no accessory muscle use Cardiovascular: no edema (Obese lower extremities), no gallop, no JVD, no murmur, normal peripheral pulses, + tachycardia (With regular rhythm) Abdomen/GI: normal bowel sounds, soft, no organomegaly, + tenderness (Right lower quadrant and left lower quadrant, no rebound, no guarding, no rigidity or firmness) Back: normal inspection, no muscle spasm, normal range of motion Extremities/Musculoskelatal: normal inspection, no calf tenderness, normal capillary refill, no pedal edema, normal range of motion 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, no motor/sensory deficits, alert, normal mood/affect, oriented x 3 Skin: normal color, warm/dry Diagnostics Laboratory Results Results Past 24 Hours Test 02/25/18 10:40 02/25/18 10:59 02/25/18 11:25 Range/Units White Blood Count 9.56 4.8-10.8 K/uL Red Blood Count 4.61 4.2-5.4 M/uL Hemoglobin 12.6 12.0-16.0 g/dL Hematocrit 37.4 37-47 % Mean Corpuscular Volume 81.1 80-100 fL Mean Corpuscular Hemoglobin 27.3 25-34 pg Mean Corpuscular Hemoglobin Concent 33.7 32-36 g/dl Platelet Count 376 130-400 K/uL Mean Platelet Volume 9.3 7.4-10.4 fL Neutrophils (%) (Auto) 70.3 % Lymphocytes (%) (Auto) 17.3 % Monocytes (%) (Auto) 8.3 % Eosinophils (%) (Auto) 2.1 % Basophils (%) (Auto) 0.4 % Neutrophils # (Auto) 6.73 1.4-6.5 K/uL Lymphocytes # (Auto) 1.65 1.2-3.4 K/uL Monocytes # (Auto) 0.79 0.11-0.59 K/uL Eosinophils # (Auto) 0.20 0-0.5 K/uL Basophils # (Auto) 0.04 0-0.2 K/uL RDW Standard Deviation 42.2 36.4-46.3 fL RDW Coefficient of Variation 14.2 11.5-14.5 % Immature Granulocyte % (Auto) 1.6 % Immature Granulocyte # (Auto) 0.15 0.00-0.02 K/uL Prothrombin Time 10.4 9.0-12.0 SECONDS Prothromb Time International Ratio 1.0 0.9-1.1 Activated Partial Thromboplast Time 26.6 21.0-31.0 SECONDS Partial Thromboplastin Ratio 1.0 Sodium Level 138 136-145 mmol/L Potassium Level 2.5 3.5-5.1 mmol/L Chloride Level 103 98-107 mmol/L Carbon Dioxide Level 20 21-32 mmol/L Anion Gap 15.0 3-11 mmol/L Blood Urea Nitrogen 10 7-18 mg/dl Creatinine 1.09 0.60-1.20 mg/dl Est Creatinine Clear Calc Drug Dose 49.7 ml/min Estimated GFR () 62.6 Estimated GFR (Non- 54.0 BUN/Creatinine Ratio 9.3 10-20 Random Glucose 127 70-99 mg/dl Calcium Level 9.2 8.5-10.1 mg/dl Magnesium Level 1.9 1.8-2.4 mg/dl Total Bilirubin 0.6 0.2-1 mg/dl Aspartate Amino Transf (AST/SGOT) 19 15-37 U/L Alanine Aminotransferase (ALT/SGPT) 11 12-78 U/L Alkaline Phosphatase 92 45-117 U/L Total Protein 7.5 6.4-8.2 gm/dl Albumin 3.1 3.4-5.0 gm/dl Globulin 4.4 2.5-4.0 gm/dl Albumin/Globulin Ratio 0.7 0.9-2 Thyroid Stimulating Hormone (TSH) 3.350 0.300-4.500 uIu/ml Free Thyroxine 1.94 0.80-1.60 ng/dl Bedside Troponin I < 0.030 0-0.045 ng/ml Urine Color YELLOW Urine Appearance CLEAR CLEAR Urine pH 6.5 4.5-7.5 Urine Specific [place] 1.022 1.000-1.030 Urine Protein TRACE NEG Urine Glucose (UA) 3+ NEG Urine Ketones TRACE NEG Urine Occult Blood NEG NEG Urine Nitrite NEG NEG Urine Bilirubin NEG NEG Urine Urobilinogen NEG NEG Urine Leukocyte Esterase NEG NEG Urine WBC (Auto) 1-5 0-5 /hpf Urine RBC (Auto) 0-4 0-4 /hpf Urine Hyaline Casts (Auto) 0 0-5 /lpf Urine Epithelial Cells (Auto) 10-20 0-5 /lpf Urine Bacteria (Auto) NEG NEG Urine Yeast (Auto) BUDDING NONE PRSENT Microbiology Results 02/25/18 Urine Culture, Received Pending Diagnostic Radiology CT Scan Abd/Pelvis: IMPRESSION: 1. Acute proximal to mid sigmoid diverticulitis superimposed upon mild generalized sigmoid colitis. 2. No evidence for abscess collection or obstruction. 3. Large gallstone. 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 Her hemoglobin and hematocrit was stable at 12 and 36, WBC 9.5, glucose 127, ecg noted sinus tachycardia with vent rate 105bpm, no st-twave changes noted. CT scan abdominal revealed sigmoid diverticulitis/colitis. She was given 40 Meq potassium orally and 10 meq via IV. Started on IV fluid as well as IV Cipro and Flagyl. She will be admitted for further assessment and treatment of Colitis and electrolyte abnormalities. Acute sigmoid diverticulitis/colitis Abdominal pain Bloody Diarrhea failed outpatient course of Flagyl x 10 days, and Cipro/Flagyl x 10 days concern for other etiologies of colitis -admit to med/surg telemetry -NPO except meds -consulted GI, spoke with HANG Cartwright who recommended starting IV Ertapenem 1g daily -IVF with 20meq K 100cc/hr -repeat cbc, bmp 1600 Hypokalemia secondary to diarrhea Was given 40meq po and 10meq via IV in ED -Place on IVF 100cc/hr with 20meq K -repeat bmp at 1600 and replete as necessary T2DM -hold all oral hypoglycemics including Metformin, jardiance and amaryl -hold off on adding SQ insulin until potassium is repleted -check accu checks AC/HS -Last A1C 7.3 on 09/25/17, repeat A1C -on ARB for renal protection HTN -continue losartan HLD -continue lipitor Hypothyroidism -continue levothyroxine -TSH 3.3, Free T4 1.94 Hx of 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 Monitor CBC ADDENDUM: This is a 62 year old female with a past medical history of recurrent diverticulitis, DM2, HTN, HLD - presents with bloody diarrhea, numbness/ tingling of the hands. On presentation, noted to have low K. Given Potassium replacement. Abdominal CT performed showing acute diverticulitis Plan: monitor K after supplementing NPO for now, IV fluids Invanz, will likely need for 14 days colonoscopy in 6-8 weeks Resuscitation Status Full code Spoke with Patient and Sister at bedside. Has living will and advance directives. Requested family to bring in. VTE Prophylaxis Will order VTE Prophylaxis: Yes (SCDS for now)
[2018-02-25 16:12] LABS: HEMATOCRIT 34.8 % (37-47); HEMOGLOBIN 11.5 g/dL (12.0-16.0); MEAN CELL VOLUME 81.7 fL (80-100); MEAN PLATELET VOLUME 9.3 fL (7.4-10.4); PLATELET COUNT 351 K/uL (130-400); RED CELL DISTRIBUTION WIDTH CV 14.2 % (11.5-14.5); RED CELL DISTRIBUTION WIDTH SD 42.3 fL (36.4-46.3); WHITE BLOOD COUNT 8.97 K/uL (4.8-10.8)
[2018-02-25] MEDS: ERTAPENEM IV 1,000 MG in SODIUM CHLORIDE 0.9% 50ML 50 ML IV SCH (16:39)
[2018-02-25 16:43] LABS: CALCIUM 8.6 mg/dl (8.5-10.1); CREATININE 0.81 mg/dl (0.60-1.20)
[2018-02-25 17:06] LABS: POTASSIUM 2.9 mmol/L (3.5-5.1)
[2018-02-25] MEDS ORDERED: DEXTROSE 50% 50 ML SYR ONE (18:26)
[2018-02-25] MEDS: POTASSIUM CHLR 10 MEQ / WTR 100 ML IV SCH ×2 (18:29→19:18)
[2018-02-25] MEDS ORDERED: POTASSIUM CHLORIDE 20 MEQ TABCR PO STA (18:31)
[2018-02-25 19:14] VITALS: BP 142/89; PULSE 93; TEMP 36.7; O2SAT 94
[2018-02-25] MEDS: D5W AND 1/2NSS + 20MEQ KCL 1,000 ML IV SCH (19:19)
[2018-02-25] MEDS: DICYCLOMINE HCL 10 MG CAP PO SCH (21:27)
[2018-02-25 23:27] VITALS: BP 121/70; PULSE 96; TEMP 36.8; O2SAT 92
[2018-02-26] MEDS ORDERED: DEXTROSE 50% 50 ML SYR IV PRN (00:15)
[2018-02-26] MEDS ORDERED: GLUCAGON FOR INJ 1 MG VIAL SQ PRN (00:15)
[2018-02-26] MEDS ORDERED: GLUCOSE 10 TABS/TUBE PO PRN (00:15)
[2018-02-26] MEDS ORDERED: GLUCOSE 40% GEL 15 GM TUBE PO PRN (00:15)
[2018-02-26 04:06] VITALS: BP 115/63; PULSE 95; TEMP 37.1; O2SAT 92
[2018-02-26] MEDS: D5W AND 1/2NSS + 20MEQ KCL 1,000 ML IV SCH ×2 (05:26→16:56)
[2018-02-26] MEDS: LEVOTHYROXINE 75 MCG TAB PO SCH (05:26)
[2018-02-26] MEDS ORDERED: INSULIN ASPART 100 UNITS/ML 3 ML PEN SC SCH (06:00)
[2018-02-26 06:10] LABS: HEMATOCRIT 35.7 % (37-47); HEMOGLOBIN 11.4 g/dL (12.0-16.0); MEAN CELL VOLUME 83.2 fL (80-100); MEAN CORPUSCULAR HEMOGLOBIN 26.6 pg (25-34); MEAN CORPUSCULAR HGB CONC 31.9 g/dl (32-36); MEAN PLATELET VOLUME 9.3 fL (7.4-10.4); PLATELET COUNT 358 K/uL (130-400); RED CELL DISTRIBUTION WIDTH CV 14.4 % (11.5-14.5); RED CELL DISTRIBUTION WIDTH SD 43.7 fL (36.4-46.3); WHITE BLOOD COUNT 7.83 K/uL (4.8-10.8)
[2018-02-26 06:36] VITALS: BP 122/71; PULSE 94; TEMP 36.8; O2SAT 92
[2018-02-26 06:55] LABS: HEMOGLOBIN A1C 7.1 % (4.5-5.6)
[2018-02-26 07:23] LABS: CALCIUM 8.4 mg/dl (8.5-10.1); CREATININE 0.88 mg/dl (0.60-1.20); POTASSIUM 3.7 mmol/L (3.5-5.1)
[2018-02-26] MEDS: ENOXAPARIN 40 MG/0.4 ML SYR SQ SCH (08:17)
[2018-02-26] MEDS: CHOLECALCIFEROL 1000 INTER.UNIT TAB PO SCH (08:17)
[2018-02-26] MEDS: LOSARTAN POTASSIUM 50 MG TAB PO SCH (08:18)
[2018-02-26] MEDS: CALCIUM 600MG + VIT D 400 IU TAB PO SCH (08:18)
[2018-02-26] MEDS: DICYCLOMINE HCL 10 MG CAP PO SCH ×2 (08:18→20:12)
[2018-02-26] MEDS: ATORVASTATIN 40 MG TAB PO SCH (08:19)
[2018-02-26] MEDS: ANASTROZOLE 1 MG TAB PO SCH (08:23)
--- NOTE | 2018-02-26 10:09 | Gastroenterology Progress Note ---
Gastroenterology Progress Note Patient was seen and examined today. Feels better. Had few BM with small amount of blood when she wipes. Reports Hx of hemorrhoids in the past. No pain, nausea or vomiting. Labs reviewed, stable H/H and no leukocytosis. Recommendations: Clear liquids today and advance as tolerated. Continue ABx, can change to Bactrim or Cipro/Flagyl upon discharge. Needs Preparation H or Anusol suppositories for the hemorrhoids. Colonoscopy in 8 weeks as OP. Please recall GI if any questions or concerns.
[2018-02-26] MEDS ORDERED: HYDROCORTISONE HC 2.5% CRM 30GM TUBE EXT ONE (10:45)
[2018-02-26] MEDS ORDERED: HYDROCORTISONE HC 2.5% CRM 30GM TUBE EXT PRN (10:45)
--- NOTE | 2018-02-26 10:45 | Progress Note ---
Subjective Date of Service: Feb 26, 2018. Subjective Pt evaluation today including: conversation w/ patient, physical exam, lab review, review of studies, review of inpatient medication list Saw/examined the patient in room 204 Still c/o lower abdominal pain, about 2/10 diarrhea improving slightly, but still present notices some blood when wiping Denies chest pain/shortness of breath Problem List Medical Problems: (1) Bloody stool Status: Acute (2) Diverticulitis Status: Acute (3) Hypokalemia Status: Acute (4) Near syncope Status: Acute Review of Systems Constitutional: No fever, No chills Respiratory: No cough, No sputum, No shortness of breath Cardiac: No chest pain Abdomen: + pain, + diarrhea, + GI bleeding, No nausea, No vomiting, No constipation Medications Current Inpatient Medications Medications (Trade) Dose Ordered Sig/Phuong Route Start Time Stop Time Status Last Admin Dose Admin Ioversol (Optiray 320) 100 ml UD PRN IV 02/25/18 11:00 03/01/18 10:59 Acetaminophen (Tylenol Tab) 650 mg Q4H PRN PO 02/25/18 13:15 03/27/18 13:14 Levothyroxine Sodium (Synthroid Tab) 75 mcg DAILYBB PO 02/26/18 06:00 03/28/18 06:59 02/26/18 05:26 75 MCG Losartan Potassium (coZAAR TAB) 50 mg DAILY PO 02/26/18 09:00 03/28/18 08:59 02/26/18 08:18 50 MG Calcium/Vitamin D (Caltrate Plus Tab) 2 tab DAILY PO 02/26/18 09:00 03/28/18 08:59 02/26/18 08:18 2 TAB Cholecalciferol (Vitamin D Tab) 2,000 inter.unit DAILY PO 02/26/18 09:00 03/28/18 08:59 02/26/18 08:17 2,000 INTER.UNIT Anastrozole (Arimidex Tab) 1 mg DAILY PO 02/26/18 09:00 03/28/18 08:59 02/26/18 08:23 1 MG Atorvastatin Calcium (Lipitor Tab) 40 mg DAILY PO 02/26/18 09:00 03/28/18 08:59 02/26/18 08:19 40 MG Dicyclomine HCl (Bentyl Cap) 10 mg BID PO 02/25/18 21:00 03/27/18 20:59 02/26/18 08:18 10 MG Enoxaparin Sodium (Lovenox Inj) 40 mg QAM SQ 02/26/18 09:00 03/28/18 08:59 02/26/18 08:17 40 MG Ertapenem 1000 mg/ Sodium Chloride 60 ml @ 120 mls/hr Q24H IV 02/25/18 16:00 03/07/18 15:59 02/25/18 16:39 120 MLS/HR Potassium Chloride/Dextrose/ Sod Cl 1,000 ml @ 100 mls/hr Q10H IV 02/25/18 19:00 03/27/18 18:59 02/26/18 05:26 100 MLS/HR Insulin Aspart (novoLOG ASPART) SLIDING SCALE If C... Q6 SC 02/26/18 06:00 03/28/18 05:59 Glucose (Glucose 40% Gel) 15-30 GRAMS 15 GRAMS... UD PRN PO 02/26/18 00:15 03/28/18 00:14 Glucose (Glucose Chew Tab) 4-8 Tablets 4 Tabl... UD PRN PO 02/26/18 00:15 03/28/18 00:14 Dextrose (Dextrose 50% 50ML Syringe) 25-50ML 25ML FOR ... UD PRN IV 02/26/18 00:15 03/28/18 00:14 Glucagon (Glucagon Inj) 1 mg UD PRN SQ 02/26/18 00:15 03/28/18 00:14 Objective Vital Signs Date Time Temp Pulse Resp B/P (MAP) Pulse Ox O2 Delivery O2 Flow Rate FiO2 02/26/18 06:36 36.8 94 22 122/71 (88) 92 Room Air 02/26/18 04:06 37.1 95 24 115/63 (80) 92 Room Air 02/25/18 23:27 36.8 96 20 121/70 (87) 92 Room Air 02/25/18 20:00 Room Air 02/25/18 19:14 36.7 93 18 142/89 (106) 94 Room Air 02/25/18 15:00 Room Air 02/25/18 15:00 37.0 93 16 163/90 (114) 95 Room Air 02/25/18 14:35 96 24 142/88 97 Room Air 02/25/18 14:12 94 02/25/18 13:20 97 Room Air 02/25/18 13:10 97 26 155/85 100 Room Air 02/25/18 11:23 22 99 Room Air 02/25/18 11:20 95 166/93 107 161/90 110 155/82 02/25/18 11:02 103 02/25/18 10:45 98 Room Air 02/25/18 10:39 36.6 102 18 140/115 97 Room Air 163/105 Physical Exam General Appearance: no apparent distress Respiratory/Chest: no respiratory distress, no accessory muscle use Cardiovascular: regular rate, rhythm, no edema, no murmur Abdomen: normal bowel sounds, non tender, soft Laboratory Results Last 24 Hours Test 02/25/18 10:40 02/25/18 10:59 02/25/18 11:25 02/25/18 15:54 White Blood Count 9.56 K/uL 8.97 K/uL Red Blood Count 4.61 M/uL 4.26 M/uL Hemoglobin 12.6 g/dL 11.5 g/dL Hematocrit 37.4 % 34.8 % Mean Corpuscular Volume 81.1 fL 81.7 fL Mean Corpuscular Hemoglobin 27.3 pg 27.0 pg Mean Corpuscular Hemoglobin Concent 33.7 g/dl 33.0 g/dl Platelet Count 376 K/uL 351 K/uL Mean Platelet Volume 9.3 fL 9.3 fL Neutrophils (%) (Auto) 70.3 % Lymphocytes (%) (Auto) 17.3 % Monocytes (%) (Auto) 8.3 % Eosinophils (%) (Auto) 2.1 % Basophils (%) (Auto) 0.4 % Neutrophils # (Auto) 6.73 K/uL Lymphocytes # (Auto) 1.65 K/uL Monocytes # (Auto) 0.79 K/uL Eosinophils # (Auto) 0.20 K/uL Basophils # (Auto) 0.04 K/uL RDW Standard Deviation 42.2 fL 42.3 fL RDW Coefficient of Variation 14.2 % 14.2 % Immature Granulocyte % (Auto) 1.6 % Immature Granulocyte # (Auto) 0.15 K/uL Prothrombin Time 10.4 SECONDS Prothromb Time International Ratio 1.0 Activated Partial Thromboplast Time 26.6 SECONDS Partial Thromboplastin Ratio 1.0 Sodium Level 138 mmol/L 138 mmol/L Potassium Level 2.5 mmol/L 2.9 mmol/L Chloride Level 103 mmol/L 105 mmol/L Carbon Dioxide Level 20 mmol/L 25 mmol/L Anion Gap 15.0 mmol/L 8.0 mmol/L Blood Urea Nitrogen 10 mg/dl 7 mg/dl Creatinine 1.09 mg/dl 0.81 mg/dl Est Creatinine Clear Calc Drug Dose 49.7 ml/min 66.8 ml/min Estimated GFR () 62.6 89.6 Estimated GFR (Non- 54.0 77.3 BUN/Creatinine Ratio 9.3 9.1 Random Glucose 127 mg/dl 68 mg/dl Calcium Level 9.2 mg/dl 8.6 mg/dl Magnesium Level 1.9 mg/dl Total Bilirubin 0.6 mg/dl Aspartate Amino Transf (AST/SGOT) 19 U/L Alanine Aminotransferase (ALT/SGPT) 11 U/L Alkaline Phosphatase 92 U/L Total Protein 7.5 gm/dl Albumin 3.1 gm/dl Globulin 4.4 gm/dl Albumin/Globulin Ratio 0.7 Thyroid Stimulating Hormone (TSH) 3.350 uIu/ml Free Thyroxine 1.94 ng/dl Bedside Troponin I < 0.030 ng/ml Urine Color YELLOW Urine Appearance CLEAR Urine pH 6.5 Urine Specific [place] 1.022 Urine Protein TRACE Urine Glucose (UA) 3+ Urine Ketones TRACE Urine Occult Blood NEG Urine Nitrite NEG Urine Bilirubin NEG Urine Urobilinogen NEG Urine Leukocyte Esterase NEG Urine WBC (Auto) 1-5 /hpf Urine RBC (Auto) 0-4 /hpf Urine Hyaline Casts (Auto) 0 /lpf Urine Epithelial Cells (Auto) 10-20 /lpf Urine Bacteria (Auto) NEG Urine Yeast (Auto) BUDDING Test 02/25/18 18:08 02/25/18 18:11 02/25/18 18:43 02/25/18 21:07 Bedside Glucose 63 mg/dl 69 mg/dl 107 mg/dl 75 mg/dl Test 02/25/18 21:16 02/25/18 23:56 02/26/18 05:44 02/26/18 06:31 Potassium Level 3.7 mmol/L 3.7 mmol/L Bedside Glucose 71 mg/dl 83 mg/dl White Blood Count 7.83 K/uL Red Blood Count 4.29 M/uL Hemoglobin 11.4 g/dL Hematocrit 35.7 % Mean Corpuscular Volume 83.2 fL Mean Corpuscular Hemoglobin 26.6 pg Mean Corpuscular Hemoglobin Concent 31.9 g/dl RDW Standard Deviation 43.7 fL RDW Coefficient of Variation 14.4 % Platelet Count 358 K/uL Mean Platelet Volume 9.3 fL Sodium Level 140 mmol/L Chloride Level 107 mmol/L Carbon Dioxide Level 23 mmol/L Anion Gap 10.0 mmol/L Blood Urea Nitrogen 4 mg/dl Creatinine 0.88 mg/dl Est Creatinine Clear Calc Drug Dose 63.0 ml/min Estimated GFR () 81.0 Estimated GFR (Non- 69.9 BUN/Creatinine Ratio 4.7 Random Glucose 71 mg/dl Estimated Average Glucose 157 mg/dl Hemoglobin A1c 7.1 % Calcium Level 8.4 mg/dl Magnesium Level 2.0 mg/dl Assessment and Plan This is a 62 year old female with a past medical history of recurrent diverticulitis, DM2, HTN, HLD, hypothyroidism, hx. of DVT/PE no longer on anticoagulation, hx. of DCIS s/p lumpectomy - presents with bloody diarrhea, numbness/tingling of the hands. Acute Diverticulitis/Colitis - patient presented with recurrent diverticulitis - has some bloody diarrhea and diverticular bleed as well - failed outpatient Cipro and Flagyl multiple times - was started on Invanz 1gram daily - will likely need this for 10 days total due to recurrence of diverticulitis - for now NPO - will start clears soon - continue IVFs Severe Hypokalemia - potassium on admission 2.5 - replaced K and potassium now 3.7 - monitor, can transfer out of [facility] GI Bleed Hemorrhoids - will start Anusol - H/H stable - outpatient colonoscopy in 6-8 weeks DM2 - holding oral agents - holding insulin for now due to low BSGs - advance diet - continue oral agents on discharge HTN - continue losartan HLD - continue lipitor Hypothyroidism - continue Synthroid Hx of R breast DCIS s/p Lumpectomy - continue Arimidex Hx of DVT/PE unprovoked - can restart full dose aspirin on discharge, no acute issues DVT ppx - Lovenox FULL CODE
[2018-02-26] MEDS: INSULIN ASPART 100 UNITS/ML 3 ML PEN SC SCH ×3 (11:30→20:38)
[2018-02-26] MEDS ORDERED: NURSING VERBAL MED ORDER ONE (11:30)
[2018-02-26 13:07] VITALS: BP 132/84; PULSE 92; TEMP 36.8; O2SAT 98
[2018-02-26 15:08] VITALS: BP 120/78; PULSE 88; TEMP 36.9; O2SAT 97
[2018-02-26] MEDS: ERTAPENEM IV 1,000 MG in SODIUM CHLORIDE 0.9% 50ML 50 ML IV SCH (16:56)
[2018-02-26 22:50] VITALS: BP 144/84; PULSE 85; TEMP 37; O2SAT 94
[2018-02-27] MEDS: D5W AND 1/2NSS + 20MEQ KCL 1,000 ML IV SCH ×2 (01:00→11:47)
[2018-02-27] MEDS: LEVOTHYROXINE 75 MCG TAB PO SCH (06:29)
[2018-02-27 07:44] LABS: HEMATOCRIT 35.9 % (37-47); HEMOGLOBIN 11.4 g/dL (12.0-16.0); MEAN CELL VOLUME 83.9 fL (80-100); MEAN CORPUSCULAR HEMOGLOBIN 26.6 pg (25-34); MEAN CORPUSCULAR HGB CONC 31.8 g/dl (32-36); MEAN PLATELET VOLUME 9.4 fL (7.4-10.4); PLATELET COUNT 346 K/uL (130-400); RED CELL DISTRIBUTION WIDTH CV 14.3 % (11.5-14.5); RED CELL DISTRIBUTION WIDTH SD 43.8 fL (36.4-46.3); WHITE BLOOD COUNT 7.38 K/uL (4.8-10.8)
[2018-02-27] MEDS: LOSARTAN POTASSIUM 50 MG TAB PO SCH (07:53)
[2018-02-27] MEDS: CHOLECALCIFEROL 1000 INTER.UNIT TAB PO SCH (07:53)
[2018-02-27] MEDS: ENOXAPARIN 40 MG/0.4 ML SYR SQ SCH (07:54)
[2018-02-27] MEDS: DICYCLOMINE HCL 10 MG CAP PO SCH (07:54)
[2018-02-27] MEDS: ATORVASTATIN 40 MG TAB PO SCH (07:54)
[2018-02-27] MEDS: CALCIUM 600MG + VIT D 400 IU TAB PO SCH (07:54)
[2018-02-27] MEDS: INSULIN ASPART 100 UNITS/ML 3 ML PEN SC SCH ×2 (07:57→12:13)
[2018-02-27] MEDS: ANASTROZOLE 1 MG TAB PO SCH (07:57)
[2018-02-27 07:59] VITALS: BP 136/84; PULSE 83; TEMP 36.7; O2SAT 97
[2018-02-27 08:02] VITALS: BP 147/89; PULSE 82; TEMP 36.8; O2SAT 96
[2018-02-27 08:06] LABS: CALCIUM 9.1 mg/dl (8.5-10.1); CREATININE 0.8 mg/dl (0.60-1.20); POTASSIUM 3.9 mmol/L (3.5-5.1)
--- NOTE | 2018-02-27 10:51 | Progress Note ---
Subjective Date of Service: Feb 27, 2018. Subjective Pt evaluation today including: conversation w/ patient, physical exam, lab review, review of studies, review of inpatient medication list Saw/examined the patient in room 421 No problems/issues to note today; feeling much better Tolerated breakfast with no issues Problem List Medical Problems: (1) Bloody stool Status: Acute (2) Diverticulitis Status: Acute (3) Hypokalemia Status: Acute (4) Near syncope Status: Acute Review of Systems Abdomen: No pain (crampy at times), No nausea, No vomiting, No diarrhea Medications Current Inpatient Medications Medications (Trade) Dose Ordered Sig/Phuong Route Start Time Stop Time Status Last Admin Dose Admin Ioversol (Optiray 320) 100 ml UD PRN IV 02/25/18 11:00 03/01/18 10:59 Acetaminophen (Tylenol Tab) 650 mg Q4H PRN PO 02/25/18 13:15 03/27/18 13:14 Levothyroxine Sodium (Synthroid Tab) 75 mcg DAILYBB PO 02/26/18 06:00 03/28/18 06:59 02/27/18 06:29 75 MCG Losartan Potassium (coZAAR TAB) 50 mg DAILY PO 02/26/18 09:00 03/28/18 08:59 02/27/18 07:53 50 MG Calcium/Vitamin D (Caltrate Plus Tab) 2 tab DAILY PO 02/26/18 09:00 03/28/18 08:59 02/27/18 07:54 2 TAB Cholecalciferol (Vitamin D Tab) 2,000 inter.unit DAILY PO 02/26/18 09:00 03/28/18 08:59 02/27/18 07:53 2,000 INTER.UNIT Anastrozole (Arimidex Tab) 1 mg DAILY PO 02/26/18 09:00 03/28/18 08:59 02/27/18 07:57 1 MG Atorvastatin Calcium (Lipitor Tab) 40 mg DAILY PO 02/26/18 09:00 03/28/18 08:59 02/27/18 07:54 40 MG Dicyclomine HCl (Bentyl Cap) 10 mg BID PO 02/25/18 21:00 03/27/18 20:59 02/27/18 07:54 10 MG Enoxaparin Sodium (Lovenox Inj) 40 mg QAM SQ 02/26/18 09:00 03/28/18 08:59 02/27/18 07:54 40 MG Ertapenem 1000 mg/ Sodium Chloride 60 ml @ 120 mls/hr Q24H IV 02/25/18 16:00 03/07/18 15:59 02/26/18 16:56 120 MLS/HR Potassium Chloride/Dextrose/ Sod Cl 1,000 ml @ 100 mls/hr Q10H IV 02/25/18 19:00 03/27/18 18:59 02/27/18 01:00 100 MLS/HR Glucose (Glucose 40% Gel) 15-30 GRAMS 15 GRAMS... UD PRN PO 02/26/18 00:15 03/28/18 00:14 Glucose (Glucose Chew Tab) 4-8 Tablets 4 Tabl... UD PRN PO 02/26/18 00:15 03/28/18 00:14 Dextrose (Dextrose 50% 50ML Syringe) 25-50ML 25ML FOR ... UD PRN IV 02/26/18 00:15 03/28/18 00:14 Glucagon (Glucagon Inj) 1 mg UD PRN SQ 02/26/18 00:15 03/28/18 00:14 Hydrocortisone (Proctozone Hc 2.5% Crm) 1 appln BID PRN EXT 02/26/18 10:45 03/28/18 10:44 Insulin Aspart (novoLOG ASPART) SLIDING SCALE If C... ACHS SC 02/26/18 11:30 03/28/18 11:29 Objective Vital Signs Date Time Temp Pulse Resp B/P (MAP) Pulse Ox O2 Delivery O2 Flow Rate FiO2 02/27/18 08:15 Room Air 02/27/18 08:02 36.8 82 20 147/89 (108) 96 02/27/18 07:59 36.7 83 18 136/84 (101) 97 Room Air 02/26/18 22:50 37.0 85 22 144/84 (104) 94 Room Air 02/26/18 20:15 Room Air 02/26/18 15:08 36.9 88 16 120/78 (92) 97 02/26/18 14:48 Room Air 02/26/18 13:07 36.8 92 20 132/84 (100) 98 Physical Exam General Appearance: no apparent distress Respiratory/Chest: no respiratory distress, no accessory muscle use Abdomen: normal bowel sounds, non tender, soft Laboratory Results Last 24 Hours Test 02/26/18 11:24 02/26/18 16:55 02/26/18 20:26 02/27/18 07:27 Bedside Glucose 105 mg/dl 115 mg/dl 131 mg/dl White Blood Count 7.38 K/uL Red Blood Count 4.28 M/uL Hemoglobin 11.4 g/dL Hematocrit 35.9 % Mean Corpuscular Volume 83.9 fL Mean Corpuscular Hemoglobin 26.6 pg Mean Corpuscular Hemoglobin Concent 31.8 g/dl RDW Standard Deviation 43.8 fL RDW Coefficient of Variation 14.3 % Platelet Count 346 K/uL Mean Platelet Volume 9.4 fL Sodium Level 137 mmol/L Potassium Level 3.9 mmol/L Chloride Level 106 mmol/L Carbon Dioxide Level 24 mmol/L Anion Gap 7.0 mmol/L Blood Urea Nitrogen 3 mg/dl Creatinine 0.80 mg/dl Est Creatinine Clear Calc Drug Dose 69.3 ml/min Estimated GFR () 90.9 Estimated GFR (Non- 78.5 BUN/Creatinine Ratio 4.1 Random Glucose 149 mg/dl Calcium Level 9.1 mg/dl Magnesium Level 1.9 mg/dl Test 02/27/18 07:40 Bedside Glucose 145 mg/dl Assessment and Plan This is a 62 year old female with a past medical history of recurrent diverticulitis, DM2, HTN, HLD, hypothyroidism, hx. of DVT/PE no longer on anticoagulation, hx. of DCIS s/p lumpectomy - presents with bloody diarrhea, numbness/tingling of the hands. Acute Diverticulitis/Colitis 02/27 - spoke with GI, appreciate input - in place of Invanz, recommendation made to d/c on Bactrim - outpatient colonoscopy in 6-8 weeks 02/26 - patient presented with recurrent diverticulitis - has some bloody diarrhea and diverticular bleed as well - failed outpatient Cipro and Flagyl multiple times - was started on Invanz 1gram daily - will likely need this for 10 days total due to recurrence of diverticulitis - for now NPO - will start clears soon - continue IVFs Severe Hypokalemia - potassium on admission 2.5 - replaced K and potassium now 3.7 - monitor, can transfer out of [facility] GI Bleed Hemorrhoids - will start Anusol - H/H stable - outpatient colonoscopy in 6-8 weeks DM2 - holding oral agents - holding insulin for now due to low BSGs - advance diet - continue oral agents on discharge HTN - continue losartan HLD - continue lipitor Hypothyroidism - continue Synthroid Hx of R breast DCIS s/p Lumpectomy - continue Arimidex Hx of DVT/PE unprovoked - can restart full dose aspirin on discharge, no acute issues DVT ppx - Lovenox FULL CODE
[2018-02-27] MEDS ORDERED: SULF800T23 PO (10:52)
[2018-02-27] MEDS ORDERED: ANSHCCR EXT (10:52)
--- NOTE | 2018-02-27 11:31 | Discharge Instructions ---
Discharge Instructions Date of Service Feb 27, 2018. Admission Reason for Admission: Colitis Discharge Discharge Diagnosis / Problem: Diverticulitis Discharge Goals Goal(s): Decrease discomfort, Improve function, Diagnostic testing, Therapeutic intervention Activity Recommendations Activity Limitations: resume your previous activity . Instructions / Follow-Up Instructions / Follow-Up Please follow-up with Dr. Templeton on March 04 at 11:05AM * You will be on Bactrim (antibiotic) for the next week * Outpatient GI follow-up; will need outpatient colonoscopy in 6-8 weeks Current Hospital Diet Patient's current hospital diet: Diabetes Type 2 Diet, Full Liquid Diet Discharge Diet Recommended Diet: AHA Diet (Heart Healthy), Diabetes Type 2 Diet Pending Studies Studies pending at discharge: no Laboratory Results Hemoglobin A1c Test 02/26/18 05:44 Range/Units Estimated Average Glucose 157 mg/dl Hemoglobin A1c 7.1 H 4.5-5.6 % Medical Emergencies . Who to Call and When: Medical Emergencies: If at any time you feel your situation is an emergency, please call 911 immediately. . Non-Emergent Contact Non-Emergency issues call your: Primary Care Provider, Ways Operator . . "Provider Documentation" section prepared by Norma Mcclendon. .
[2018-02-27 11:33] VITALS: BP 147/89; PULSE 82; TEMP 36.8; O2SAT 96
--- NOTE | 2018-02-27 11:33 | Discharge Summary ---
Discharge Summary Date of Service Feb 27, 2018. 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 Medication Reconciliation New Medications: Sulfa/Trimethoprim (Bactrim Ds 800MG/160MG) Tab 1 TAB PO BID for 7 Days, #14 TAB Hydrocortisone (Proctosol Hc) 90 Appln/30 Gm Cr 1 APPLN EXT BID PRN for Hemorrhoids for 7 Days, #1 TUBE Continued Medications: Acyclovir (Zovirax) 200 Mg Cap 200 MG PO Q4HR PRN Aspirin (Aspirin *) 325 Mg Tab 325 MG PO DAILY Baclofen (Baclofen) 10 Mg Tab 1 TAB PO TID PRN for Pain Calcium W/ Vitamins D & K (Calcium + D) 1 Chw Chw 2 TAB PO DAILY Cholecalciferol (Vitamin D3) 2,000 Unit Cap 1 CAP PO DAILY for 30 Days, #30 CAP 3 Refills Dicyclomine Hcl (Dicyclomine Hcl) 10 Mg Cap 1 CAP PO BID for 30 Days, #60 CAP 11 Refills Empagliflozin (Jardiance) 10 Mg Tab 1 TAB PO DAILY Fiber Laxative (Fiber Laxative) Ea 2 TAB PO QAM Fiber Laxative (Fiber Laxative) Ea 1 TAB PO PM Glimepiride (Glimepiride) 1 Mg Tab 2 MG PO DAILY Levothyroxine (Levoxyl) 0.075 Mg Tab 75 MCG PO DAILY Losartan Potassium (Cozaar) 50 Mg Tab 1 TAB PO DAILY Metformin Hcl (Glucophage) 850 Mg Tab 1000 MG PO BIDM, TAB [anastrozole] () 1 MG PO DAILY [Atorvastatin] () 40 MG PO DAILY Admission Information HPI (per Admitting provider): This is a pleasant 62 year old female who has a significant PMH of HTN, HLD, T2DM A1C 7.3 09/25/17, hypothyroidism, h/o DVT/PE in 2001 unprovoked, R breast DCIS s/p lumpectomy and RT who presents to [facility] secondary to near syncopal episode today with associated bloody, mucous diarrhea x 9 weeks. Sister and brother in law at bedside. Initially patient thought she picked up a, "GI bug," however symptoms continued. Presented to PCP office 01/05 in which there was concern for cdiff, patient placed on course of flagyl. Stool studies were indeterminate therefore referred to GI. At the time she was having bloody, bright red, mucous diarrhea, 10-15 episodes daily for 4 weeks. She also had lower abdominal discomfort, "like two fists," constant. On was seen by MARK Perera in which stool studies for enteric pathogens/cdiff were done and negative. CT scan of abd/pelvis showed early proximal sigmoid diverticulitis. She was placed on course of cipro/flagyl for 10 days with no relief. Further prescribed bentyl 10mg po bid prn which did alleviate abdominal discomfort. Today she was working in which she felt like she could, "pass out." Sx occurred while standing, therefore sat down, tried to stand again and became lightheaded. EMS was then summoned. She has been having blood, mucous, diarrhea for 9 weeks, 10-15 episodes daily. Complains of constant abdominal discomfort, lower, rated 5/10, nothing made worse, made better with bentyl. Has tried nothing OTC. Last new medication was Jardiance which started at end of November. Appetite overall decreased, nothing tastes good. Approx 20lb weight loss. Denies f/c/s, chest pain, sob, palpitations, nausea, emesis. Also complains of pins/needles sensation in fingers and toes for past 2- 3 days. Sister elicits she has history of Crohns disease. Patient is scheduled for outpatient colonoscopy on 03/01/18. In ED patient was noted to be hypokalemic, with potassium 2.5. Her hemoglobin and hematocrit was stable at 12 and 36, WBC 9.5, glucose 127, ecg noted sinus tachycardia with vent rate 105bpm, no st-twave changes noted. CT scan abdominal revealed sigmoid diverticulitis/colitis. She was given 40 Meq potassium orally and 10 meq via IV. Started on IV fluid as well as IV Cipro and Flagyl. She will be admitted for further assessment and treatment of Colitis and electrolyte abnormalities. Physical Exam (per Admitting): General Appearance: WD/WN, no apparent distress, + obese Head: normocephalic, atraumatic Eyes: normal inspection, sclerae normal ENT: normal ENT inspection, hearing grossly normal, pharynx normal, + pertinent finding (Mucous membranes moist) Neck: supple, no adenopathy, thyroid normal, no JVD, no carotid bruits, trachea midline Respiratory/Chest: chest non-tender, lungs clear, normal breath sounds, no respiratory distress, no accessory muscle use Cardiovascular: no edema (Obese lower extremities), no gallop, no JVD, no murmur, normal peripheral pulses, + tachycardia (With regular rhythm) Abdomen/GI: normal bowel sounds, soft, no organomegaly, + tenderness (Right lower quadrant and left lower quadrant, no rebound, no guarding, no rigidity or firmness) Back: normal inspection, no muscle spasm, normal range of motion Extremities/Musculoskelatal: normal inspection, no calf tenderness, normal capillary refill, no pedal edema, normal range of motion Neurologic/Psych: 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 of DVT/PE no longer on anticoagulation, hx. of DCIS s/p lumpectomy - presents with bloody diarrhea, numbness/tingling of the hands. Acute Diverticulitis/Colitis 02/27 - spoke with GI, appreciate input - in place of Invanz, recommendation made to d/c on Bactrim - outpatient colonoscopy in 6-8 weeks 02/26 - patient presented with recurrent diverticulitis - has some bloody diarrhea and diverticular bleed as well - failed outpatient Cipro and Flagyl multiple times - was started on Invanz 1gram daily - will likely need this for 10 days total due to recurrence of diverticulitis - for now NPO - will start clears soon - continue IVFs Severe Hypokalemia - potassium on admission 2.5 - replaced K and potassium now 3.7 - monitor, can transfer out of tele GI Bleed Hemorrhoids - will start Anusol - H/H stable - outpatient colonoscopy in 6-8 weeks DM2 - holding oral agents - holding insulin for now due to low BSGs - advance diet - continue oral agents on discharge HTN - continue losartan HLD - continue lipitor Hypothyroidism - continue Synthroid Hx of R breast DCIS s/p Lumpectomy - continue Arimidex Hx of DVT/PE unprovoked - can restart full dose aspirin on discharge, no acute issues DVT ppx - Lovenox FULL CODE Total time spent on discharge = 50 minutes This includes examination of the patient, discharge planning, medication reconciliation, and communication with other providers. Discharge Instructions Please follow-up with Dr. Templeton on March 04 at 11:05AM * You will be on Bactrim (antibiotic) for the next week * Outpatient GI follow-up; will need outpatient colonoscopy in 6-8 weeks
== END 2018-02-27 13:02 | disposition home or self-care (01) | DRG 379 ==
LOC: C.EDB 10:30 → EDBD 10:30 → C.2E 14:01 → ENRESERV 14:13 → C.4E 02-26 10:46 → ENRESERV 02-26 11:15
PROVIDERS: ADMIT Family Medicine; ATTEND Family Medicine
DX: K57.91 Diverticulosis of intestine, part unspecified, without perforation or abscess with bleeding (principal); Z79.82 Long term (current) use of aspirin; Z88.0 Allergy status to penicillin; Z88.8 Allergy status to other drugs, medicaments and biological substances; E87.6 Hypokalemia; M26.39 Other anomalies of tooth position of fully erupted tooth or teeth; K52.9 Noninfective gastroenteritis and colitis, unspecified; E11.9 Type 2 diabetes mellitus without complications; I10 Essential (primary) hypertension; E78.5 Hyperlipidemia, unspecified; Z85.3 Personal history of malignant neoplasm of breast; Z86.718 Personal history of other venous thrombosis and embolism; Z86.711 Personal history of pulmonary embolism

== ENCOUNTER 2019-03-21 23:50 | Inpatient (IN) ==
--- OUTSIDE RECORDS SUMMARY | 2019-03-22 00:06 | External Medical Summary | Continuity of Care Document ---
:1955 Author Name Jesus Cho, Provider Address Unavailable Unavailable , Care Team Providers Name Role Phone NonMRANIG Tammie, Provider Unavailable [email or web address]., [email or web address] Lorenza Templeton Unavailable Unavailable Unavailable Unavailable Unavailable Problems Carcinoma in situ of breast (233.0) (D05.90) Malignant neoplasm of lower-outer quadrant of female breast (174.5) (C50.519) Well female exam with routine gynecological exam (V72.31) (Z 01.419) Vulvar boil (616.4) (N76.4) Abnormal finding on imaging (793.99) (R93.89) Oligomenorrhea (626.1) (N91.5) Hypertension (401.9) (I10) Diabetes mellitus (250.00) (E11.9) Allergies and Adverse Reactions Amoxicillin CAPS (Allergy) Thimerosal (Allergy) Medications Vitamin B Complex CAPS Refills: 0 Jardiance TABS Refills: 0 Triamcinolone Acetonide 0.1 % External Cream Refills: 0 Benicar 20 MG Oral Tablet; TAKE 0.5 TABLET Daily TDD:10 mg Refills: 0 Levothyroxine Sodium 75 MCG Oral Tablet; TAKE 1 TABLET DAILY . Refills: 0 Mupirocin 2 % External Ointment; Apply a generous amount of ointment 3 times per day to the affected area on labia. Tammie Ha Start: 28-Oct-2018 Quantity: 1 M. 22 GM Tube Refills: 3 Acyclovir 200 MG Oral Capsule; TAKE 1 CAPSULE Every 4 hours PRN Refills: 0 Glucophage 850 MG Oral Tablet; TAKE 1 TABLET TWICE DAILY WIT H MEALS. Refills: 0 Aspirin TABS Refills: 0 Calcium TABS Refills: 0 Lipitor TABS Refills: 0 Procedures History of Throat Surgery Status: Comple garima History of Appendectomy Status: Complete d History of Tonsillectomy With Adenoidectomy Status: Completed Immunizations Immunizations not documented Family History Mother Family history of Heart Disease (V17.49) Status: Active Family history of Cancer Status: Active Unknown Family Member Family history of Heart Disease (V17.49) Status: Active Comments: Family History Family history of Diabetes Mellitus (V18.0) Status: Active Comments: Family History aunt Family history of Pancreatic Neoplasm Status: Active Grandmother Family history of Uterine Cancer (V16.49) Status: Active Social History - Smoking Status Never smoker Plan of Treatment Planned Observations Planned Goals not documented Results No Known Results Results not documented Encounters Appointment; Cathie Ha M.D. 08-Sep-2017 11:30 Encounter Diagnosis: Problem not documented
[2019-03-22] MEDS ORDERED: SODIUM CHLORIDE 0.9% 1000ML 1,000 ML IV SCH ×2 (00:15→05:35)
[2019-03-22 00:37] LABS: Hematocrit (blood only) 31.9 % (37-47); Hemoglobin 10.6 g/dL (12.0-16.0); Mean Corpuscular Hgb Conc 33.2 g/dL (32-36); Mean Corpuscular Volume 84.2 fL (80-100); Mean Platelet Volume 9.3 fL (7.4-10.4); Platelet Count 315 K/uL (130-400); RDW Coefficient of Variation 15.3 % (11.5-14.5); Red Blood Count 3.79 M/uL (4.2-5.4); White Blood Count 17.08 K/uL (4.8-10.8)
[2019-03-22 00:42] LABS: INR 1.1 (0.9-1.1); Prothrombin Time 10.9 Seconds (9.0-12.0)
[2019-03-22 01:05] LABS: Basophils # (auto) 0.03 K/uL (0-0.2); Basophils % (auto) 0.2 %; Eosinophils # (auto) 0.08 K/uL (0-0.5); Eosinophils % (auto) 0.5 %; Immature Granulocytes # (auto) 0.23 K/uL (0.00-0.02); Immature Granulocytes % (auto) 1.3 %; Lymphocytes # (auto) 2.17 K/uL (1.2-3.4); Lymphocytes % (auto) 12.7 %; Monocytes # (auto) 0.84 K/uL (0.11-0.59); Monocytes % (auto) 4.9 %; Neutrophils # (auto) 13.73 K/uL (1.4-6.5); Neutrophils % (auto) 80.4 %; Ovalocytes 1+; Polychromasia 1+
[2019-03-22 01:42] LABS: Albumin Level 2.3 gm/dl (3.4-5.0); BUN Creatinine Ratio 13.1 (10-20); Calcium 8.5 mg/dl (8.5-10.1); Creatinine Clr Calc Pharmacy 34.8 ml/min; Est GFR (African American) 46.7; Est GFR (Non-African American) 40.3; Magnesium 1.8 mg/dl (1.8-2.4); Potassium 2.4 mmol/L (3.5-5.1)
[2019-03-22 01:46] LABS: Albumin Globulin Ratio 0.5 (0.9-2); Bilirubin,Total 0.9 mg/dl (0.2-1); Globulin 4.5 gm/dl (2.5-4.0); Total Protein 6.8 gm/dl (6.4-8.2)
[2019-03-22 01:52] LABS: Beta-Hydroxybutyrate 7.05 mg/dl (0.2-2.81); Thyroid Stimulating Hormone 15.5 uIu/ml (0.300-4.500)
[2019-03-22] MEDS ORDERED: SODIUM CHLORIDE 0.9% 1000ML 500 ML IV ONE (02:00)
[2019-03-22] MEDS ORDERED: POTASSIUM CHLORIDE 10 MEQ TABCR PO STA (02:00)
[2019-03-22] MEDS ORDERED: INSULIN HUMAN REGULAR PER UNIT 6 UNITS in SYRINGE 0 ML SC STA (02:06)
[2019-03-22 02:09] LABS: T4 Free Thyroxine 1.18 ng/dl (0.8-1.6)
[2019-03-22] MEDS: POTASSIUM CHLORIDE / WTR 10 MEQ/100 ML PLCT IV SCH ×2 (02:19→03:30)
[2019-03-22] MEDS ORDERED: NovoLIN-R INSULIN PER UNIT CHARGE ONE (02:25)
--- NOTE | 2019-03-22 03:59 | Emergency Department Note ---
Entered by Leoncio Lee acting as a scribe for History of Present Illness General Chief complaint: Leg Injury/Pain Stated complaint: LEG PAIN Time Seen by Provider: 03/21/19 23:58 Source: patient History of Present Illness Onset (ago): hour(s) (2230 last night) Location: lower extremity (left) Pain Consistency: + constant Current Pain Intensity: 4 Associated symptoms: + other (Positive for left leg swelling, left leg turning purple, SOB, groin pain, vomiting, and bloody diarrhea.) The patient is a 63 year old female who presents to the emergency department with complaints of constant left leg pain beginning at 2230 last night. The patient states that she noticed pain and swelling in her leg around 2230 last night. She believes that she has a blot clot as she has a previous history of PEs and DVTs. She notes that she has pain in her left calf, left thigh, and in her groin. She rates her pain as a 4/10. She reports that her leg is also turning purple. She also complains of SOB. The patient states that she has been persistently vomiting for weeks and she notes that she has been having frequent episodes of bloody diarrhea. She notes that she also has a history of ulcerative colitis and diabetes. Home Medications Home Medications Medication Instructions Recorded Confirmed Type calcium citrate-vitamin D3 1 tab PO DAILY 05/12/18 03/22/19 History [Citracal + D Petites] cholecalciferol (vitamin D3) 1,000 unit PO DAILY 05/12/18 03/22/19 History [Vitamin D3] dicyclomine 10 mg PO TID PRN 05/12/18 03/22/19 History levothyroxine 75 mcg PO DAILY 05/12/18 03/22/19 History pantoprazole [Protonix] 40 mg PO DAILY 05/12/18 03/22/19 History potassium chloride [Klor-Con M20] 20 meq PO BID 05/12/18 03/22/19 History L.acidoph-L.rhamn-B.bif-B.long 1 tab PO TID 03/22/19 03/22/19 History [Probiotic Acidophilus Biobeads] anastrozole 1 mg PO DAILY 03/22/19 03/22/19 History aspirin 325 mg PO DAILY 03/22/19 03/22/19 History budesonide 3 mg PO DIRECTED 03/22/19 03/22/19 History fluocinonide 1 applic TOPICAL BID 03/22/19 03/22/19 History furosemide [Lasix] 20 mg PO DAILY PRN 03/22/19 03/22/19 History insulin glargine [Basaglar KwikPen 17 unit SUBCUT DAILY 03/22/19 03/22/19 History U-100 Insulin] mesalamine 1 g OH HS 03/22/19 03/22/19 History sertraline 50 mg PO DAILY 03/22/19 03/22/19 History vedolizumab [Entyvio] 300 mg IV WK 03/22/19 03/22/19 History zinc sulfate [Zinc-220] 220 mg PO BID 03/22/19 03/22/19 History Allergies Allergy/AdvReac Type Severity Reaction Status Date / Time aztreonam [From Azactam] Allergy Intermediate flushed Verified 03/22/19 02:19 /itching dorzolamide Allergy Unknown EYE LID Verified 03/22/19 02:19 SWELLING latanoprost Allergy Unknown EYE LID Verified 03/22/19 02:19 SWELLING Penicillins Allergy Unknown Unknown Verified 03/22/19 02:19 thimerosal Allergy Unknown Unknown Verified 03/22/19 02:19 timolol Allergy Unknown EYE LID Verified 03/22/19 02:19 SWELLING Past Med/Surg History Medical History Clostridium difficile diarrhea (Acute) SIRS (systemic inflammatory response syndrome) Hypoglycemia associated with diabetes Depression History of venous thromboembolism Hypomagnesemia (Acute) Ulcerative (chronic) pancolitis with unspecified complications (Chronic) Colitis (Acute) 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) "Abnormal right breast mammogram Biopsy-positive for DCIS Status post lumpectomy with no residual tumor stage pTis NXMX Estrogen receptor positive, progesterone receptor positive Status post completion of radiation therapy 02/22/2013 received 3850 cGy utilizing accelerated partial breast treatment " HTN (hypertension) (Chronic) T2DM (type 2 diabetes mellitus) (Chronic) Acute hyponatremia (Acute) Acute kidney injury (Acute) Severe sepsis Diverticulitis large intestine (Acute) Leukocytosis (leucocytosis) (Acute) DVT (deep venous thrombosis) Pancolitis (Acute) DVT prophylaxis History of recent steroid use Anemia (Acute) Pulmonary embolism Hypokalemia C. difficile diarrhea Hypomagnesemia (Acute) UTI (urinary tract infection) (Acute) DVT (deep venous thrombosis) (Chronic) BILT LEGS 03/2018 History of recent steroid use (Chronic) GERD (gastroesophageal reflux disease) (Chronic) GI bleed (Chronic) Breast cancer, right (Chronic) 2012--SX & RADIATION, NO CHEMO Sepsis (Resolved) 03/2018 Hypertension (Chronic) Diabetes mellitus type 2, controlled (Chronic) Crohns disease (Chronic) Hypothyroidism (Chronic) History of pulmonary embolus (PE) (Chronic) "dx in 2001, unprovoked" HLD (hyperlipidemia) (Chronic) Obesity (BMI 30-39.9) (Chronic) Surgical History H/O breast biopsy (Chronic) 2012--RIGHT MALIGNANT Status post glaucoma surgery (Chronic) BILT History of tonsillectomy and adenoidectomy (Chronic) History of colonoscopy (Chronic) S/P insertion of IVC (inferior vena caval) filter (Chronic) 03/29/[address] BUSTAMANTE History of appendectomy (Resolved) History of lumpectomy of right breast (Resolved) "+ HERBIE ER/OH + in 10/2012 s/p RT" H/O lumpectomy Hx of appendectomy Family History Mother Family history of diabetes mellitus Heart disease Father Family history of diabetes mellitus Heart disease Sister Family history of diabetes mellitus Grandmother Family history of diabetes mellitus PATERNAL Uterine cancer Sister Crohn's disease Social History Preferred Language: [place] Communication Ability: Effective Visual Impairment: No Limitations Hearing Ability: Normal Olive Picker Required: No Beliefs That Will Affect Care: Episcopalian Episcopalian Beliefs: Moravian marital status: Single Current Living Situation: Alone Current Living Situation Comment: alone Other Information That Helps Us Care for You: No Feels Safe at Home: Yes Safety Concerns: Feels Safe At This Time Smoking Status: Never smoker Second Hand Exposure: No ; Hx Alcohol Use: No Hx Substance Use: No Review of Systems See HPI for pertinent positives & negatives. and A total of 10 systems reviewed and were otherwise negative Physical Exam Vital Signs Vital Signs - 24 hr 03/22/19 00:01 03/22/19 00:09 03/22/19 01:08 Temperature 36.7 C Temperature Source Oral Sepsis Recent Fever Within 48 Hours No Sepsis New/Unexplained Change in Mental Status No Sepsis Action Taken by Nursing No Action Required Pulse Rate 114 H Pulse Rate [Finger] 106 H Respiratory Rate 18 18 Blood Pressure 113/65 Blood Pressure [Left Arm] 103/71 Blood Pressure Mean 81 Blood Pressure Mean [Left Arm] 81 Pulse Oximetry 100 100 98 Oxygen Delivery Method Room Air Room Air Room Air 03/22/19 02:31 Temperature Temperature Source Sepsis Recent Fever Within 48 Hours Sepsis New/Unexplained Change in Mental Status Sepsis Action Taken by Nursing Pulse Rate Pulse Rate [Finger] 99 H Respiratory Rate 23 Blood Pressure Blood Pressure [Left Arm] 103/71 Blood Pressure Mean Blood Pressure Mean [Left Arm] 81 Pulse Oximetry 100 Oxygen Delivery Method Room Air Vital signs reviewed. General: Well-appearing female, in no significant distress. Appears comfortable HEENT: No scleral icterus, PERRLA, neck supple. Atraumatic. Cardiovascular: Regular rate and rhythm, no extra sounds. Pulmonary: Clear to auscultation bilaterally, normal work of breathing. Abdomen: Soft, nontender, nondistended, positive bowel sounds. Musculoskeletal: Atraumatic. Mottled left lower extremity slightly cooler than right lower extremity, slightly sluggish cap refill of about 3 seconds to great toe, no significant swelling. Neurologic: Patient awake alert and oriented x 3 Skin: Warm, dry, no rash Course 0002: The patient was evaluated in room B2. A complete history and physical exam was performed. 0236: I discussed the patient's [facility] 0312: I discussed the patient's case with Dr. Bustamante - Vascular Surgery, [facility]. He recommends heparinizing the patient if she is not actively bleeding. He states that a thrombectomy of a clot this size is not likely to be successful. 0317: Upon reevaluation, the patient is stable. I discussed the findings and the treatment plan with the patient. She expresses agreement and understanding. [facility] The patient will be evaluated for further management. Consultations Consultation #1: I discussed the patient's case with Dr. Castillo - [facility]. 0317: I reviewed the patient's case with Dr. Castillo - [facility]. He will evaluate the patient for further management. Time: 02:36 Consultation #2: I discussed the patient's case with Dr. Bustamante - Vascular Surgery, [facility]. He recommends heparinizing the patient if she is not actively bleeding. He states that a thrombectomy of a clot this size is not likely to be successful. Time: 03:12 Administered Medications Anastrozole (Arimidex) 1 mg PO DAILY [facility] Stop: 04/21/19 08:59 Last Admin: 03/22/19 08:15 Dose: Not Given Documented by: [id number] Aspirin (Ecotrin) 325 mg PO DAILY [facility] Stop: 04/21/19 08:59 Last Admin: 03/22/19 08:47 Dose: 325 mg Documented by: [id number] Budesonide (Entocort Ec) 9 mg PO DAILY [facility] Stop: 03/28/19 09:01 Last Admin: 03/22/19 08:50 Dose: 9 mg Documented by: [id number] Potassium Chloride/Sodium Chloride (Normal Saline W/20 Meq Kcl) 20 meq in 1,000 mls @ 100 mls/hr IV .Q10H [facility] Stop: 04/21/19 05:44 Last Admin: 03/22/19 20:39 Dose: 100 mls/hr Documented by: [id number] Infusion: 03/22/19 20:39 Dose: 100 mls/hr Documented by: [id number] Admin: 03/22/19 10:43 Dose: 100 mls/hr Documented by: [id number] Heparin Sodium/Dextrose (Heparin Sodium/Dextrose) 25,000 units in 500 mls @ 22 mls/hr IV .[id number] [facility]; Protocol Stop: 04/21/19 08:09 Last Admin: 03/23/19 00:37 Dose: 1,100 units/hr, 22 mls/hr Documented by: [id number] Cosigned by: [id number] Titration: 03/23/19 00:37 Dose: 0 units/hr, 0 mls/hr Documented by: [id number] Cosigned by: [id number] Titration: 03/22/19 23:36 Dose: 0 units/hr, 0 mls/hr Documented by: [id number] Cosigned by: [id number] Titration: 03/22/19 21:30 Dose: 0 units/hr, 0 mls/hr Documented by: [id number] Cosigned by: [id number] Titration: 03/22/19 14:58 Dose: 1,200 units/hr, 24 mls/hr Documented by: [id number] Cosigned by: [id number] Titration: 03/22/19 14:44 Dose: 1,200 units/hr, 24 mls/hr Documented by: [id number] Cosigned by: [id number] Admin: 03/22/19 08:44 Dose: 1,000 units/hr, 20 mls/hr Documented by: [id number] Cosigned by: [id number] Insulin Aspart (Novolog Flexpen) 0 units SC ACHS [facility] Stop: 04/21/19 07:29 Last Admin: 03/22/19 20:38 Dose: 7 units Documented by: [id number] Cosigned by: [id number] Admin: 03/22/19 18:30 Dose: 2 units Documented by: [id number] Cosigned by: [id number] Admin: 03/22/19 12:52 Dose: 4 units Documented by: [id number] Cosigned by: [id number] Admin: 03/22/19 08:54 Dose: 4 units Documented by: [id number] Cosigned by: [id number] Insulin Glargine (Lantus Solostar Pen) 10 units SC DAILY [facility] Stop: 04/21/19 08:59 Last Admin: 03/22/19 08:55 Dose: 10 units Documented by: [id number] Cosigned by: [id number] Lactobacillus Acidophilus (Floranex) 4 tab PO TID [facility] Stop: 04/21/19 08:59 Last Admin: 03/22/19 20:18 Dose: 4 tab Documented by: [id number] Admin: 03/22/19 13:00 Dose: Not Given Documented by: [id number] Admin: 03/22/19 08:48 Dose: 4 tab Documented by: [id number] Levothyroxine Sodium (Synthroid) 75 mcg PO DAILYBB [facility] Stop: 04/21/19 06:29 Last Admin: 03/22/19 08:49 Dose: 75 mcg Documented by: [id number] Miscellaneous (Order Awaiting Action) 1 ea N/A QS [facility] Stop: 04/21/19 07:59 Last Admin: 03/22/19 17:38 Dose: Not Given Documented by: [id number] Admin: 03/22/19 08:15 Dose: Not Given Documented by: [id number] Multivitamins/Minerals (Caltrate Plus) 1 tab PO DAILY [facility] Stop: 04/21/19 08:59 Last Admin: 03/22/19 08:48 Dose: 1 tab Documented by: [id number] Ondansetron HCl (Zofran) 4 mg IV Q6H PRN PRN Reason: Nausea Stop: 04/21/19 06:18 Last Admin: 03/22/19 12:41 Dose: 4 mg Documented by: [id number] Pantoprazole Sodium (Protonix) 40 mg PO DAILY [facility] Stop: 04/21/19 08:59 Last Admin: 03/22/19 08:47 Dose: 40 mg Documented by: [id number] Potassium Chloride (Klor-Con M20) 20 meq PO BID [facility] Stop: 04/21/19 08:59 Last Admin: 03/22/19 20:19 Dose: 20 meq Documented by: [id number] Admin: 03/22/19 08:48 Dose: 20 meq Documented by: [id number] Sertraline HCl (Zoloft) 50 mg PO DAILY [facility] Stop: 04/21/19 08:59 Last Admin: 03/22/19 08:49 Dose: 50 mg Documented by: [id number] Vitamin D (Vitamin D3) 1,000 units PO DAILY [facility] Stop: 04/21/19 08:59 Last Admin: 03/22/19 08:47 Dose: 1,000 units Documented by: [id number] Zinc Sulfate (Zinc Sulfate) 220 mg PO BID [facility] Stop: 04/21/19 08:59 Last Admin: 03/22/19 20:19 Dose: 220 mg Documented by: [id number] Admin: 03/22/19 08:48 Dose: 220 mg Documented by: [id number] Discontinued Medications Heparin Sodium/Dextrose () 1 ea IV ONE ONE; Protocol Stop: 03/22/19 06:20 Last Admin: 03/22/19 08:52 Dose: 1 ea Documented by: [id number] Sodium Chloride (Nss 1000ml) 1,000 mls @ 125 mls/hr IV .Q8H [facility] Stop: 03/22/19 08:14 Last Infusion: 03/22/19 05:45 Dose: 0 mls/hr Documented by: [id number] Admin: 03/22/19 00:24 Dose: 125 mls/hr Documented by: [id number] Potassium Chloride (K Richard / Wtr) 10 meq in 100 mls @ 100 mls/hr IV Q1H [facility] Stop: 03/22/19 03:59 Last Infusion: 03/22/19 04:30 Dose: 0 mls/hr Documented by: [id number] Admin: 03/22/19 03:30 Dose: 100 mls/hr Documented by: [id number] Infusion: 03/22/19 03:20 Dose: 0 mls/hr Documented by: [id number] Admin: 03/22/19 02:19 Dose: 100 mls/hr Documented by: [id number] Sodium Chloride (Nss 1000ml) 500 mls @ 999 mls/hr IV .Q31M ONE Stop: 03/22/19 02:30 Last Infusion: 03/22/19 02:49 Dose: 0 mls/hr Documented by: [id number] Admin: 03/22/19 02:16 Dose: 999 mls/hr Documented by: [id number] Insulin Human Regular 6 units/ (Syringe) 0.06 mls @ 0.0033 mls/min SC NOW STA Stop: 03/22/19 02:07 Last Admin: 03/22/19 02:28 Dose: 0.0033 mls/min Documented by: [id number] Cosigned by: [id number] Sodium Chloride (Nss 1000ml) 1,000 mls @ 80 mls/hr IV .[id number] [facility] Stop: 04/21/19 05:34 Last Admin: 03/22/19 05:45 Dose: 80 mls/hr Documented by: [id number] Heparin Sodium (Porcine) 4,000 (units/ Syringe) 4 mls @ 10 mls/min IV ONE ONE Stop: 03/22/19 15:01 Last Admin: 03/22/19 17:35 Dose: 10 mls/min Documented by: [id number] Cosigned by: [id number] Insulin Human Regular (Novolin R U-100 Per Unit) Confirm Administered Dose 6 units .ROUTE .STK-MED ONE Stop: 03/22/19 02:26 Last Admin: 03/22/19 02:31 Dose: Not Given Documented by: [id number] Potassium Chloride (Klor-Con M10) 40 meq PO NOW STA Stop: 03/22/19 02:01 Last Admin: 03/22/19 02:21 Dose: 40 meq Documented by: [id number] Potassium Chloride (Klor-Con M20) 60 meq PO NOW STA Stop: 03/22/19 05:36 Last Admin: 03/22/19 05:43 Dose: 60 meq Documented by: [id number] Medical Decision Making Differential Diagnosis Differential diagnosis: Etiologies such as DVT, vascular ischemia, radiculopathy, fracture, hematoma/contusion, myositis, abscess, septic arthritis cellulitis, joint effusion, trauma, lymphedema, idiopathic, CHF, as well as others were entertained. Medical Records Attestation: I reviewed the patient's medical records. Home Medications Current Medication List: was personally reviewed by me Laboratory Data Attestation: I reviewed the patient's lab results. Result diagrams: 03/22/19 14:07 03/22/19 14:07 Lab Results 03/21/19 03/21/19 03/21/19 Range/Units 23:45 23:45 23:45 WBC 17.08 H (4.8-10.8) K/uL RBC 3.79 L (4.2-5.4) M/uL Hgb 10.6 L (12.0-16.0) g/dL Hct 31.9 L (37-47) % MCV 84.2 (80-100) fL MCH 28.0 (25-34) pg MCHC 33.2 (32-36) g/dL RDW Std Deviation 46.0 (36.4-46.3) fL RDW Coeff of Conchis 15.3 H (11.5-14.5) % Plt Count 315 (130-400) K/uL MPV 9.3 (7.4-10.4) fL Immature Gran % (Auto) 1.3 % Neut % (Auto) 80.4 % Lymph % (Auto) 12.7 % [place] % (Auto) 4.9 % Eos % (Auto) 0.5 % Baso % (Auto) 0.2 % Immature Gran # (Auto) 0.23 H (0.00-0.02) K/uL Neut # (Auto) 13.73 H (1.4-6.5) K/uL Lymph # (Auto) 2.17 (1.2-3.4) K/uL [place] # (Auto) 0.84 H (0.11-0.59) K/uL Eos # (Auto) 0.08 (0-0.5) K/uL Baso # (Auto) 0.03 (0-0.2) K/uL Polychromasia 1+ Ovalocytes 1+ PT 10.9 (9.0-12.0) Seconds INR 1.1 (0.9-1.1) APTT (21.0-31.0) Seconds PTT Ratio Sodium 135 L (136-145) mmol/L Potassium 2.4 L* (3.5-5.1) mmol/L Chloride 98 (98-107) mmol/L Carbon Dioxide 23 (21-32) mmol/L Anion Gap 14.0 H (3-11) BUN 18 (7-18) mg/dl Creatinine 1.38 H (0.6-1.2) mg/dl Est Cr Clr Drug Dosing 34.8 ml/min Est GFR ( Amer) 46.7 Est GFR (Non-Af Amer) 40.3 BUN/Creatinine Ratio 13.1 (10-20) Glucose 314 H* (70-99) mg/dl POC Glucose (70-99) Lactate (0.4-2.0) mmol/L Calcium 8.5 (8.5-10.1) mg/dl Magnesium 1.8 (1.8-2.4) mg/dl Total Bilirubin 0.9 (0.2-1) mg/dl AST 11 L (15-37) U/L ALT 7 L (12-78) U/L Alkaline Phosphatase 169 H (45-117) U/L Total Protein 6.8 (6.4-8.2) gm/dl Albumin 2.3 L (3.4-5.0) gm/dl Globulin 4.5 H (2.5-4.0) gm/dl Albumin/Globulin Ratio 0.5 L (0.9-2) Beta-Hydroxybutyric Acd 7.05 H (0.2-2.81) mg/dl TSH 15.500 H (0.300-4.500) uIu/ml Free T4 1.18 (0.8-1.6) ng/dl 03/22/19 03/22/19 03/22/19 Range/Units 00:58 00:59 00:59 WBC 16.37 H (4.8-10.8) K/uL RBC 3.64 L (4.2-5.4) M/uL Hgb 10.6 L (12.0-16.0) g/dL Hct 31.1 L (37-47) % MCV 85.4 (80-100) fL MCH 29.1 (25-34) pg MCHC 34.1 (32-36) g/dL RDW Std Deviation 45.9 (36.4-46.3) fL RDW Coeff of Conchis 15.0 H (11.5-14.5) % Plt Count 237 (130-400) K/uL MPV 9.3 (7.4-10.4) fL Immature Gran % (Auto) 1.6 % Neut % (Auto) 84.0 % Lymph % (Auto) 8.9 % [place] % (Auto) 5.0 % Eos % (Auto) 0.3 % Baso % (Auto) 0.2 % Immature Gran # (Auto) 0.27 H (0.00-0.02) K/uL Neut # (Auto) 13.73 H (1.4-6.5) K/uL Lymph # (Auto) 1.46 (1.2-3.4) K/uL [place] # (Auto) 0.82 H (0.11-0.59) K/uL Eos # (Auto) 0.05 (0-0.5) K/uL Baso # (Auto) 0.04 (0-0.2) K/uL Polychromasia Ovalocytes PT 11.2 (9.0-12.0) Seconds INR 1.1 (0.9-1.1) APTT 27.6 (21.0-31.0) Seconds PTT Ratio 1.0 Sodium (136-145) mmol/L Potassium (3.5-5.1) mmol/L Chloride (98-107) mmol/L Carbon Dioxide (21-32) mmol/L Anion Gap (3-11) BUN (7-18) mg/dl Creatinine (0.6-1.2) mg/dl Est Cr Clr Drug Dosing ml/min Est GFR ( Amer) Est GFR (Non-Af Amer) BUN/Creatinine Ratio (10-20) Glucose (70-99) mg/dl POC Glucose (70-99) Lactate 2.4 H* (0.4-2.0) mmol/L Calcium (8.5-10.1) mg/dl Magnesium (1.8-2.4) mg/dl Total Bilirubin (0.2-1) mg/dl AST (15-37) U/L ALT (12-78) U/L Alkaline Phosphatase (45-117) U/L Total Protein (6.4-8.2) gm/dl Albumin (3.4-5.0) gm/dl Globulin (2.5-4.0) gm/dl Albumin/Globulin Ratio (0.9-2) Beta-Hydroxybutyric Acd (0.2-2.81) mg/dl TSH (0.300-4.500) uIu/ml Free T4 (0.8-1.6) ng/dl 03/22/19 Range/Units 03:00 WBC (4.8-10.8) K/uL RBC (4.2-5.4) M/uL Hgb (12.0-16.0) g/dL Hct (37-47) % MCV (80-100) fL MCH (25-34) pg MCHC (32-36) g/dL RDW Std Deviation (36.4-46.3) fL RDW Coeff of Conchis (11.5-14.5) % Plt Count (130-400) K/uL MPV (7.4-10.4) fL Immature Gran % (Auto) % Neut % (Auto) % Lymph % (Auto) % [place] % (Auto) % Eos % (Auto) % Baso % (Auto) % Immature Gran # (Auto) (0.00-0.02) K/uL Neut # (Auto) (1.4-6.5) K/uL Lymph # (Auto) (1.2-3.4) K/uL [place] # (Auto) (0.11-0.59) K/uL Eos # (Auto) (0-0.5) K/uL Baso # (Auto) (0-0.2) K/uL Polychromasia Ovalocytes PT (9.0-12.0) Seconds INR (0.9-1.1) APTT (21.0-31.0) Seconds PTT Ratio Sodium (136-145) mmol/L Potassium (3.5-5.1) mmol/L Chloride (98-107) mmol/L Carbon Dioxide (21-32) mmol/L Anion Gap (3-11) BUN (7-18) mg/dl Creatinine (0.6-1.2) mg/dl Est Cr Clr Drug Dosing ml/min Est GFR ( Amer) Est GFR (Non-Af Amer) BUN/Creatinine Ratio (10-20) Glucose (70-99) mg/dl POC Glucose 323 H* (70-99) Lactate (0.4-2.0) mmol/L Calcium (8.5-10.1) mg/dl Magnesium (1.8-2.4) mg/dl Total Bilirubin (0.2-1) mg/dl AST (15-37) U/L ALT (12-78) U/L Alkaline Phosphatase (45-117) U/L Total Protein (6.4-8.2) gm/dl Albumin (3.4-5.0) gm/dl Globulin (2.5-4.0) gm/dl Albumin/Globulin Ratio (0.9-2) Beta-Hydroxybutyric Acd (0.2-2.81) mg/dl TSH (0.300-4.500) uIu/ml Free T4 (0.8-1.6) ng/dl Imaging Data Attestation: I personally reviewed and interpreted this imaging study as follows: My Impression: CHEST X-RAY: No focal infiltrate. No failure. Normal mediastinal silhouette. Radiologist's Impression: Radiology results as stated below per my review and the radiologist's interpretation: US VENOUS LEFT LOWER EXTREMITY: Occlusive thrombus in the left common femoral vein, left greater saphenous vein, left femoral vein, left popliteal vein, left gastrocnemius veins, left lesser saphenous veins, left posterior tibial vein, left peroneal vein, and one of 2 anterior tibial veins. US ARTERIAL LEFT LOWER EXTREMITY: No significant stenosis or occlusion in the left lower extremity arteries. Radiologist: Yas Vaz MD. ECG Data Attestation: I personally reviewed and interpreted this ECG as follows: Indication: weakness and other (hypokalemia) Rate (beats per minute): 110 Rhythm: sinus tachycardia Findings: no acute ischemic change Additional Comments: Previous inferior infarct, QTC 495. Blood Pressure Blood Pressure Findings: Normal blood pressure Blood Pressure Disposition: did not require urgent referral MDM Narrative This patient was evaluated and appeared to be in no significant distress. Physical examination reveals a left lower extremity that appears to be mottled with a slightly delayed cap refill. Patient is noted to be slightly tachycardic on exam however she is stable. She has no difficulty breathing. Ultrasound of the venous and arterial systems was performed of the left lower extremity and reveals extensive left lower extremity DVT. Patient's laboratory work reveals an elevated lactate at 2.4, potassium of 2.4 and a hyperglycemia with a blood sugar in the 300s. Patient did receive 6 units of subcutaneous regular insulin. IV fluids have been initiated. After consultation with internal medicine, Dr. Castillo, and Dr. Bustamante of vascular surgery, it was determined that the patient would be started on IV heparin at least for the short-term. I did explain the thought process to the patient and her family at the bedside. Although she may not be able to tolerate long-term anticoagulation, in the short-term it is felt that the significance of this massive clot burden is greater than the risk of bleeding. Patient will be evaluated by Dr. Castillo for admission and further management. Impression & Plan DVT (deep venous thrombosis), Hyperkalemia, Hyperglycemia, High serum lactate Discharge Plan Visit Data *Final* Discharge Date/Time: 03/22/19 05:48 Chief Complaint: Leg Injury/Pain Stated Complaint: LEG PAIN ED Provider: Rhonda Weiss Discharge Problem: DVT (deep venous thrombosis), Hyperkalemia, Hyperglycemia, High serum lactate Patient Disposition: Admitted As Inpatient Discharge Instructions Interventions: ED Discharge Assessment Last Done: 03/22/19 05:48 Discharge Problem: DVT (deep venous thrombosis) Qualifiers: DVT location: lower extremity Affected thrombotic vein of extremity: unspecified vein of extremity Chronicity: acute Laterality: left Qualified Code(s): I82.402 - Acute embolism and thrombosis of unspecified deep veins of left lower extremity The scribe's documentation has been prepared under my direction and personally reviewed by me in its entirety. I confirm that the note above accurately reflects all work, treatment, procedures, and medical decision making performed by me.
[2019-03-22] MEDS ORDERED: POTASSIUM CHLORIDE 20 MEQ TABCR PO STA (05:35)
[2019-03-22] MEDS ORDERED: NITROGLYCERIN SL 0.4 MG/TAB TAB SL PRN (06:19)
[2019-03-22] MEDS ORDERED: FUROSEMIDE 20 MG TAB PO PRN (06:19)
[2019-03-22] MEDS ORDERED: Heparin IV Standard *NO* Bolus IV ONE (06:19)
[2019-03-22] MEDS ORDERED: POLYETHYLENE (MIRALAX) 17 GM PACK PO PRN (06:19)
[2019-03-22] MEDS ORDERED: DICYCLOMINE HCL 10 MG CAP PO PRN (06:19)
--- NOTE | 2019-03-22 06:37 | Ultrasound Report ---
Study: Arterial duplex Doppler left leg HISTORY: Pain. Edema. FINDINGS: Arterial waveforms and velocity characteristics are unremarkable. There is no evidence for high-grade stenotic process. IMPRESSION:. 1. Technically limited exam due to the presence of extensive deep venous thrombosis. 2. Arterial structures are patent with no evidence for significant stenotic process. Electronically signed by: Catrachito Nevarez M.D. 03/22/2019 6:36 AM
--- NOTE | 2019-03-22 07:00 | Ultrasound Report ---
LEFT LOWER EXTREMITY VENOUS DOPPLER CLINICAL HISTORY: h/o DVT, pain, swelling COMPARISON STUDY: Bilateral lower extremity venous Doppler ultrasound April 26, 2018. TECHNIQUE: Sonography of the deep venous system of the left lower extremity was performed. Compressi on and augmentation were evaluated. FINDINGS: Extensive deep venous thrombosis noted within the left lower extremity. Specifically, note is made of occlusive thrombus within the left common femoral, femoral, popliteal, posterior tibial, p eroneal and anterior tibial veins. Several of these vessels are expanded. Thrombus extended has incre ased when compared to exam of April 26, 2018. There is also superficial thrombus within the left gr eater saphenous and lesser saphenous veins. IMPRESSION: Extensive left lower extremity deep venous thrombus. The appearance favors acute thrombus . Overall, increase in extent when compared to prior ultrasound of April 26, 2018. Electronically signed by: Douglas Snyder M.D. 03/22/2019 6:59 AM
--- NOTE | 2019-03-22 07:11 | XRay Report ---
SINGLE VIEW CHEST CLINICAL HISTORY: Generalized weakness. FINDINGS: An AP, portable, upright chest radiograph is compared to study dated 06/13/2018. The examina tion is degraded by portable technique and patient rotation. The cardiomediastinal silhouette is un remarkable. The lungs and pleural spaces are clear. No pneumothorax is seen. The bony thorax is gross ly intact. IMPRESSION: No active disease in the chest. Electronically signed by: John Bojorquez M.D. 03/22/2019 7:10 AM
[2019-03-22] MEDS: ANASTROZOLE 1 MG TAB PO SCH (08:15)
[2019-03-22] MEDS: HEPARIN SODIUM/DEXTROSE 25,000 UNITS/500 ML BAG IV SCH (08:44)
[2019-03-22] MEDS: CHOLECALCIFEROL 1,000 UNITS TAB PO SCH (08:47)
[2019-03-22] MEDS: ASPIRIN 325 MG ECTAB PO SCH (08:47)
[2019-03-22] MEDS: PANTOprazole 40 MG TAB PO SCH (08:47)
[2019-03-22] MEDS: ZINC SULFATE 220 MG CAPSULE PO SCH ×2 (08:48→20:19)
[2019-03-22] MEDS: POTASSIUM CHLORIDE 20 MEQ TABCR PO SCH ×2 (08:48→20:19)
[2019-03-22] MEDS: LACTOBACILLUS ACIDOPHILUS (FLORANEX) TAB PO SCH ×3 (08:48→20:18)
[2019-03-22] MEDS: CALCIUM 600MG + VIT D 400 IU TAB PO SCH (08:48)
[2019-03-22] MEDS: LEVOTHYROXINE SODIUM 75 MCG TABLET PO SCH (08:49)
[2019-03-22] MEDS: SERTRALINE HCL 50 MG TABLET PO SCH (08:49)
[2019-03-22] MEDS: BUDESONIDE EC 3 MG CAP PO SCH (08:50)
[2019-03-22] MEDS: INSULIN ASPART 100 UNITS/ML 3 ML PEN SC SCH ×4 (08:54→20:38)
[2019-03-22] MEDS: INSULIN GLARGINE SOLOSTAR 100 UNITS/ML 3 ML PEN SC SCH (08:55)
[2019-03-22 08:58] LABS: Basophils # (auto) 0.04 K/uL (0-0.2); Basophils % (auto) 0.2 %; Eosinophils # (auto) 0.05 K/uL (0-0.5); Eosinophils % (auto) 0.3 %; Hematocrit (blood only) 31.1 % (37-47); Hemoglobin 10.6 g/dL (12.0-16.0); Immature Granulocytes # (auto) 0.27 K/uL (0.00-0.02); Immature Granulocytes % (auto) 1.6 %; Lymphocytes # (auto) 1.46 K/uL (1.2-3.4); Lymphocytes % (auto) 8.9 %; Mean Corpuscular Hemoglobin 29.1 pg (25-34); Mean Corpuscular Volume 85.4 fL (80-100); Mean Platelet Volume 9.3 fL (7.4-10.4); Monocytes # (auto) 0.82 K/uL (0.11-0.59); Neutrophils # (auto) 13.73 K/uL (1.4-6.5); Platelet Count 237 K/uL (130-400); RDW Standard Deviation 45.9 fL (36.4-46.3); Red Blood Count 3.64 M/uL (4.2-5.4); White Blood Count 16.37 K/uL (4.8-10.8)
[2019-03-22] MEDS ORDERED: FLUOCINONIDE 0.05% OINT 15 GM TUBE EXT SCH (09:00)
[2019-03-22 09:08] LABS: Mean Corpuscular Hgb Conc 34.1 g/dL (32-36)
[2019-03-22 09:09] LABS: INR 1.1 (0.9-1.1); Partial Thromboplastin Time 27.6 Seconds (21.0-31.0); Prothrombin Time 11.2 Seconds (9.0-12.0)
--- NOTE | 2019-03-22 09:26 | History and Physical Report ---
DATE OF ADMISSION: 03/22/2019 CHIEF COMPLAINT: Left lower extremity extensive DVT. HISTORY OF PRESENT ILLNESS: A 63-year-old female with past medical history significant for hypothyroidism, history of pulmonary embolism, history of DVT, status post IVC filter, not on Coumadin because of history of lower GI bleeds from ulcerative colitis, history of type 2 diabetes, hyperlipidemia, morbid obesity, history of ductal carcinoma in situ of breast, hypertension, history of multiple C. difficile diarrhea and pancolitis and she had a long course of p.o. vancomycin for C. diff, status post FMT, for ulcerative colitis, she failed mesalamine and Humira, and currently on Entyvio. Having abdominal pain and blood in the stools and she saw GI last week of february and they did a CAT scan that is showing the same colitis but in a less severe form and they thought question of failure of Entyvio, so they resumed the mesalamine again and short course of budesonide and plan to change to Stelara as a last attempt and eventually if no improvement may require subtotal colectomy. On last admission, she was transferred to for colectomy, but then she did fine with bowel rest and tube feeding. She is not on any anticoagulation secondary to GI bleeds, comes here because of last night around 10:00 p.m., she suddenly noticed left lower extremity swelling and purplish discoloration. She lives alone, then she called her sister who brought her to the hospital. Her imaging studies showed extensive occlusive thrombus in the left common femoral down to the left peroneal vein and one of the two anterior tibial veins. Has some uneasy feeling in the leg. Earlier, she felt some shortness of breath. Currently, saturating okay on room air. About a week ago, she had an episode of fever. She has ongoing diarrhea. She still has some blood in the stools but thought it could be from hemorrhoids. Denies any chest pain. No headache, no blurred vision, no sore throat, no difficulty swallowing. Normal bladder movements. No hematuria or dysuria. Otherwise, she ambulates okay and she cooks her own food and she drives car. Her sister lives about 3 miles from her. Currently afebrile and hemodynamically stable. ALLERGIES: AZTREONAM, DORZOLAMIDE, LATANOPROST, PENICILLINS, THIMEROSAL, AND TIMOLOL. PAST MEDICAL HISTORY: As mentioned above. PAST SURGICAL HISTORY: Status post IVC filter, biopsy of the breast, colonoscopy, appendectomy, tonsillectomy. MEDICATIONS: The patient is on budesonide tapering dose, probiotics, Zoloft 50 mg p.o. daily, dicyclomine 10 mg p.o. t.i.d. p.r.n., mesalamine 1000 mg suppository to rectum at bedtime, Lantus 24 units under skin daily, zinc 1 capsule daily, Klor-Con 20 mEq p.o. b.i.d., Protonix 40 mg p.o. daily, vitamin D 1000 units p.o. daily, fluocinonide 0.05% apply to the rash on the right lower leg twice daily, Lipitor 40 mg p.o. daily, levothyroxine 75 mcg p.o. daily, anastrozole 1 mg tablet daily, Lasix 20 mg p.o. daily p.r.n., insulin sliding scale, Entyvio 300 mg IV once every 8 weeks, Citracal 1 tablet daily, aspirin 325 mg p.o. daily. FAMILY HISTORY: Significant for mother has asthma, skin cancer, diabetes, heart disorder, hypertension. Father has diabetes. SOCIAL HISTORY: Single, lives alone. No smoking, no alcohol, no drug use. REVIEW OF SYMPTOMS: As per HPI. Rest of review of symptoms negative. PHYSICAL EXAMINATION: GENERAL: The patient is of moderate build, not in acute distress. VITAL SIGNS: Temperature 36.7, pulse 94, respiratory rate 18, blood pressure 115/71, oxygen 97% on room air. HEENT: No pallor, no icterus. Pupils equal, round, reactive to light. NECK: No JVD, no neck masses, no carotid bruits. CARDIOVASCULAR: S1, S2 heard, regular rate and rhythm, no murmur, no gallop. RESPIRATORY SYSTEM: Normal AP diameter. No thyromegaly. No wheezing, no crackles. ABDOMEN: Soft, bowel sounds present, nontender. No distention. CENTRAL NERVOUS SYSTEM: Cranial nerves II-XII grossly nonfocal. EXTREMITIES: Left lower extremity is swollen and purplish discoloration from thigh to the heel. Peripheral pulses feeble. LABORATORY DATA: WBC 17, hemoglobin 10.6, hematocrit 31.9, platelets 115. PT 10.9, INR 1.1. Sodium 135, potassium 2.4, chloride 98, bicarbonate 23, BUN 18, creatinine 1.38, serum glucose 314. Lactate 2.4, calcium 8.5, magnesium 1.8, total bilirubin 0.9, AST 11, ALT 7, alkaline phosphatase 169. TSH 15, free T4 of 1.18. IMAGING: Chest x-ray: No acute findings. Venous duplex scan, stat read: Occlusive thrombus in the left common femoral vein, left greater saphenous vein, left femoral vein, left popliteal vein, left gastrocnemius veins, left lesser saphenous vein, left posterior tibial vein, left peroneal vein and one of the two anterior tibial veins. Left lower extremity arterial ultrasound: No significant stenosis or occlusion in the left lower extremity. ELECTROCARDIOGRAM: Sinus tachy at a rate of 110, some ST depression in lateral leads. ASSESSMENT AND PLAN: This is a 63-year-old female who presents with extensive deep venous thrombosis in the left lower extremity. 1. Extensive deep venous thrombosis in the left lower extremity. The patient has history of deep venous thrombosis and pulmonary embolism in the past, status post inferior vena cava filter because of gastrointestinal bleed from ulcerative colitis. 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 Vascular surgery recommended to elevate the leg and IV heparin and will see the patient in the morning and if anything changes, to call them. I also tried to transfer the patient to hospital , no beds at [facility] but vascular surgery at [facility] recommended the same thing to give heparin as the patient did not develop phlegmasia at this time, so we will admit to medical/surgical telemetry, elevate the leg, IV heparin for now and watch for any gastrointestinal bleeds and vascular surgery is consulted for further recommendations. 2. Hypokalemia. Potassium of 2.4. We will replace. Follow repeat laboratories. 3. Elevated lactic acid, probably most likely from extensive deep venous thrombosis. We will further repeat laboratories,on IV fluids. 4. Diabetes. Sugars are 314. The patient is on Lantus and sliding scale at home. The patient is currently n.p.o. We will put on Lantus 10 units b.i.d. and insulin sliding scale and glycemic pharmacy consult. 5. Hypothyroidism. Continue home Synthroid. TSH is high, but free T4 is normal. 6. Ulcerative colitis. Still having some blood in the stools, thought maybe from hemorrhoids, but she is on Entyvio and follows with Gastrointestinal closely. Currently on budesonide tapering dose and mesalamine was restarted. We will consult Gastrointestinal while she is getting IV heparin. 7. Chronic anemia, hemoglobin of 10.6, mostly at baseline. We will follow the laboratories as the patient is getting IV heparin. 8. Depression, on Zoloft. 9. Acute kidney injury, baseline creatinine around 0.8, presented with creatinine of 1.3, on IV fluids. We will follow the laboratories. 10. Deep venous thrombosis prophylaxis, on IV heparin. 11. History of recurrent Clostridium difficile, status post FMT. 12. Deep venous thrombosis prophylaxis. DISPOSITION: Admit to med/surg tele. Level 1 full code. Physical therapy and occupational therapy prior to discharge. Social Service to help with discharge planning. DASHAD
[2019-03-22] MEDS: NSS + 20MEQ KCL 20 MEQ/1,000 ML BAG IV SCH ×2 (10:43→20:39)
[2019-03-22] MEDS: ONDANSETRON INJ 2 MG/ML 2 ML VIAL IV PRN (12:41)
[2019-03-22] MEDS ORDERED: PNEUMOCOCCAL ADMINISTRATION CHARGE ONE (14:15)
[2019-03-22] MEDS ORDERED: PNEUMOCOCCAL POLYSACCHARIDES 25 MCG/0.5 ML VIAL/SYR IM ONE (14:15)
[2019-03-22 14:21] LABS: Hematocrit (blood only) 31.6 % (37-47); Hemoglobin 10.6 g/dL (12.0-16.0)
[2019-03-22 14:30] LABS: Partial Thromboplastin Ratio 1.4; Partial Thromboplastin Time 37.3 Seconds (21.0-31.0)
--- NOTE | 2019-03-22 14:31 | Gastrointestinal Consultation ---
Date of Consultation March 22, 2019 Assessment & Plan (1) DVT (deep venous thrombosis): (2) Ulcerative (chronic) pancolitis with unspecified complications: Pt is a 63 y/o female w hx of UC currently admitted for LLE DVT. She had hx of Cdiff, aeromonas infection; s/p fecal transplant. Last Cdiff and stool cx checked in February negative. She is having symptoms of frequent loose BM associated w abd pain and mild nausea. She reports rectal bleeding but RN reports none. CT (outpt) and inflammatory markers suggestive of UC flare. - Repeat Cdiff and stool cx check - Will continue Budesonide - Last Entyvio dose 02/21, continue [id number] infusion - Dicyclomine prn abd pain/cramping - Vascular Surgery consulted Supervising Physician Co-Signing Physician Notes I performed a history and physical examination of the patient, including specifically on physical exam - soft, nontender abdomen. I have discussed the patient's management with Mera. Please refer to the nurse practitioner's note for the documented findings and plan of care. 63 female with complex US, failed multiple therapeutic modalities, admitted with worsening DVT, She is also having a UC flare. Plan: Stool w/u Continue Budesonide. Vascular surgery following. Can continue Heparin for now. It seems she will eventually require a colectomy. History of Present Illness Reason for Consultation: Ulcerative colitis, DVT Requesting Physician: Dr. Tanner Castillo Attending Physician: Dr. Caesar Chow History of Present Illness Pt is a 63 y/o female who presented yesterday w LLE swelling and purple discoloration, found to have DVT. Currently on Heparin gtt and awaiting Vascular Surgery evaluation. She had hx of Ulcerative colitis, Aeromoas stool infection, recurrent Cdiff s/p FMT. She failed Mesalamine PO, Humira, currently on Entyvio [id number] IV last dose on 02/21/19. She was last seen by Dr. Chow on 03/06/19 in GI clinic. She was c/o then of frequent and bloody BM up to 10x a day associated w abd pain and nausea. Repeat Cdiff and stool cx negative. ESR, CRP elevated and CT abd/pelvis showed temple colitis. She was started on Budesonide for likely UC flare. She currently still report loose frequent BM w rectal bleeding but RN report her stools are like "butterscotch" color w/o bleeding. She is having mild abd pain, nausea w/o vomiting. Allergies Allergy/AdvReac Type Severity Reaction Status Date / Time aztreonam [From Azactam] Allergy Intermediate flushed Verified 03/22/19 02:19 /itching dorzolamide Allergy Unknown EYE LID Verified 03/22/19 02:19 SWELLING latanoprost Allergy Unknown EYE LID Verified 03/22/19 02:19 SWELLING Penicillins Allergy Unknown Unknown Verified 03/22/19 02:19 thimerosal Allergy Unknown Unknown Verified 03/22/19 02:19 timolol Allergy Unknown EYE LID Verified 03/22/19 02:19 SWELLING Home Medications Home Medications Medication Instructions Recorded Confirmed Type calcium citrate-vitamin D3 1 tab PO DAILY 05/12/18 03/22/19 History [Citracal + D Petites] cholecalciferol (vitamin D3) 1,000 unit PO DAILY 05/12/18 03/22/19 History [Vitamin D3] dicyclomine 10 mg PO TID PRN 05/12/18 03/22/19 History levothyroxine 75 mcg PO DAILY 05/12/18 03/22/19 History pantoprazole [Protonix] 40 mg PO DAILY 05/12/18 03/22/19 History potassium chloride [Klor-Con M20] 20 meq PO BID 05/12/18 03/22/19 History L.acidoph-L.rhamn-B.bif-B.long 1 tab PO TID 03/22/19 03/22/19 History [Probiotic Acidophilus Biobeads] anastrozole 1 mg PO DAILY 03/22/19 03/22/19 History aspirin 325 mg PO DAILY 03/22/19 03/22/19 History budesonide 3 mg PO DIRECTED 03/22/19 03/22/19 History fluocinonide 1 applic TOPICAL BID 03/22/19 03/22/19 History furosemide [Lasix] 20 mg PO DAILY PRN 03/22/19 03/22/19 History insulin glargine [Basaglar KwikPen 17 unit SUBCUT DAILY 03/22/19 03/22/19 History U-100 Insulin] mesalamine 1 g OR HS 03/22/19 03/22/19 History sertraline 50 mg PO DAILY 03/22/19 03/22/19 History vedolizumab [Entyvio] 300 mg IV WK 03/22/19 03/22/19 History zinc sulfate [Zinc-220] 220 mg PO BID 03/22/19 03/22/19 History Patient History Medical History Clostridium difficile diarrhea (Acute) SIRS (systemic inflammatory response syndrome) Hypoglycemia associated with diabetes Depression History of venous thromboembolism Hypomagnesemia (Acute) Ulcerative (chronic) pancolitis with unspecified complications (Chronic) Colitis (Acute) 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) "Abnormal right breast mammogram Biopsy-positive for DCIS Status post lumpectomy with no residual tumor stage pTis NXMX Estrogen receptor positive, progesterone receptor positive Status post completion of radiation therapy 02/22/2013 received 3850 cGy utilizing accelerated partial breast treatment " HTN (hypertension) (Chronic) T2DM (type 2 diabetes mellitus) (Chronic) Acute hyponatremia (Acute) Acute kidney injury (Acute) Severe sepsis Diverticulitis large intestine (Acute) Leukocytosis (leucocytosis) (Acute) DVT (deep venous thrombosis) Pancolitis (Acute) DVT prophylaxis History of recent steroid use Anemia (Acute) Pulmonary embolism Hypokalemia C. difficile diarrhea Hypomagnesemia (Acute) UTI (urinary tract infection) (Acute) DVT (deep venous thrombosis) (Chronic) BILT LEGS 03/2018 History of recent steroid use (Chronic) GERD (gastroesophageal reflux disease) (Chronic) GI bleed (Chronic) Breast cancer, right (Chronic) 2012--SX & RADIATION, NO CHEMO Sepsis (Resolved) 03/2018 Hypertension (Chronic) Diabetes mellitus type 2, controlled (Chronic) Crohns disease (Chronic) Hypothyroidism (Chronic) History of pulmonary embolus (PE) (Chronic) "dx in 2001, unprovoked" HLD (hyperlipidemia) (Chronic) Obesity (BMI 30-39.9) (Chronic) Surgical History H/O breast biopsy (Chronic) 2012--RIGHT MALIGNANT Status post glaucoma surgery (Chronic) BILT History of tonsillectomy and adenoidectomy (Chronic) History of colonoscopy (Chronic) S/P insertion of IVC (inferior vena caval) filter (Chronic) 03/29/[address] BUSTAMANTE History of appendectomy (Resolved) History of lumpectomy of right breast (Resolved) "+ HERBIE ER/OR + in 10/2012 s/p RT" H/O lumpectomy Hx of appendectomy Family History Mother Family history of diabetes mellitus Heart disease Father Family history of diabetes mellitus Heart disease Sister Family history of diabetes mellitus Grandmother Family history of diabetes mellitus PATERNAL Uterine cancer Sister Crohn's disease Social History Preferred Language: Nauruan Communication Ability: Effective Visual Impairment: No Limitations Hearing Ability: Normal Display Designer Required: No Beliefs That Will Affect Care: Rastafarian Rastafarian Beliefs: Bahai marital status: Single Current Living Situation: Alone Current Living Situation Comment: alone Other Information That Helps Us Care for You: No Feels Safe at Home: Yes Safety Concerns: Feels Safe At This Time Smoking Status: Never smoker Second Hand Exposure: No ; Hx Alcohol Use: No Hx Substance Use: No Review of Systems Review of Systems: All systems reviewed & are unremarkable except as noted in HPI & below Physical Exam Constitutional: + ill appearing, well groomed and cooperative Eyes: PERRL, conjunctivae normal, anicteric sclerae ENMT: external ear and nose normal, oropharynx normal Respiratory: normal respiratory effort, lungs clear to auscultation Cardiovascular: RRR, no murmur, no edema Gastrointestinal (Abdomen): normal bowel sounds, soft, nontender, no hepatosplenomegaly Skin: no rashes, warm and dry no jaundice Psychiatric: A+Ox3, euthymic affect Lymphatic: + lymphedema LLE swelling and dusky Results & Data Vital Signs (Past 12 Hours) Vital Signs Temp Pulse Resp BP Pulse Ox 03/22/19 07:34 36.9 C 110 H 18 100/70 97 03/22/19 04:05 95 H 18 115/71 97 03/22/19 02:31 99 H 23 103/71 100 (1) DVT (deep venous thrombosis) Affected thrombotic vein of extremity: unspecified vein of extremity Chronicity: acute DVT location: lower extremity Laterality: left Qualified Code(s): I82.402 - Acute embolism and thrombosis of unspecified deep veins of left lower extremity
[2019-03-22 14:51] LABS: BUN Creatinine Ratio 16.6 (10-20); Creatinine Clr Calc Pharmacy 35.3 ml/min; Est GFR (African American) 47.5; Potassium 3.6 mmol/L (3.5-5.1)
[2019-03-22] MEDS ORDERED: PROMETHAZINE HCL 6.25 MG in SODIUM CHLORIDE 0.9% 50 ML IV PRN (14:54)
[2019-03-22] MEDS ORDERED: HEPARIN IV BOLUS 4,000 UNITS in SYRINGE 0 ML IV ONE (15:00)
--- NOTE | 2019-03-22 15:10 | Consultation ---
Date of Consultation March 22, 2019 Assessment & Plan (1) DVT (deep venous thrombosis): Pt with hx of LLE DVT, as well as acute DVT currently. Already with IVC filter in place. D/T extensive DVT of LLE, recommend AC, however, safety of remaining on long-term AC should be determined by medicine/GI, d/t her hx of significant GI bleeding. Recommend thigh high compression therapy when able to tolerate. Will order orthotics to fit pt for new compression. No indications for vascular surgical intervention at this time, as pulses are palpable, edema is improving, and there are no signs of cerulea dolens. Please call if needed. Affected thrombotic vein of extremity: unspecified vein of extremity Chronicity: acute DVT location: lower extremity Laterality: left Qualified Code(s): I82.402 - Acute embolism and thrombosis of unspecified deep veins of left lower extremity Present on Admission?: Yes History of Present Illness Reason for Consultation: LLE DVT, eval for cerulea dolens Attending Physician: Mendoza Fajardo MD History of Present Illness 63 yo f with multiple medical problems, including hx of DVT with IVC filter insertion in 2018, breast ca, ulcerative colitis, GI bleed, PE, DMII, crohns disease, hyperlpidemia, HTN, GERD, admitted with acute, extensive LLE DVT involving L common fem V to lower leg, seen in consultation today for same. Pt Has hx of DVT in past, and had IVC filter inserted in fall of 2017 d/t severe GI bleeding at that time. Per pt and family, has been off of AC since then. Pt currently living in apartment, and has been suffering from N/V and red/bloody diarrhea for past month or so. D/T malaise/fatigue, pt has been significantly less active than usual. Occasionally wears her compression, but not always and is unsure if they are fitting properly, as they typically end up at her ankles. States she had sudden onset of severe pain and swelling of LLE yesterday. Continues to have N/V. States pain and edema of LLE is slightly improved since arrival here. Denies SAPP, fever, chills, chest pain, SOB, abd pain, rest pain, claudication, other complaints. Pt currently on Heparin drip. Per pt and family, she does have strong fam hx of DVT/PE, father and brother both of PE, other family members with DVT/PE in past as well. Pt does not believe she has been tested for hypercoagulability. Venous US of LLE demonstrates extensive DVT from common fem to lower leg, worse than previous DVT. Allergies Allergy/AdvReac Type Severity Reaction Status Date / Time aztreonam [From Azactam] Allergy Intermediate flushed Verified 03/22/19 02:19 /itching dorzolamide Allergy Unknown EYE LID Verified 03/22/19 02:19 SWELLING latanoprost Allergy Unknown EYE LID Verified 03/22/19 02:19 SWELLING Penicillins Allergy Unknown Unknown Verified 03/22/19 02:19 thimerosal Allergy Unknown Unknown Verified 03/22/19 02:19 timolol Allergy Unknown EYE LID Verified 03/22/19 02:19 SWELLING Home Medications Home Medications Medication Instructions Recorded Confirmed Type calcium citrate-vitamin D3 1 tab PO DAILY 05/12/18 03/22/19 History [Citracal + D Petites] cholecalciferol (vitamin D3) 1,000 unit PO DAILY 05/12/18 03/22/19 History [Vitamin D3] dicyclomine 10 mg PO TID PRN 05/12/18 03/22/19 History levothyroxine 75 mcg PO DAILY 05/12/18 03/22/19 History pantoprazole [Protonix] 40 mg PO DAILY 05/12/18 03/22/19 History potassium chloride [Klor-Con M20] 20 meq PO BID 05/12/18 03/22/19 History L.acidoph-L.rhamn-B.bif-B.long 1 tab PO TID 03/22/19 03/22/19 History [Probiotic Acidophilus Biobeads] anastrozole 1 mg PO DAILY 03/22/19 03/22/19 History aspirin 325 mg PO DAILY 03/22/19 03/22/19 History budesonide 3 mg PO DIRECTED 03/22/19 03/22/19 History fluocinonide 1 applic TOPICAL BID 03/22/19 03/22/19 History furosemide [Lasix] 20 mg PO DAILY PRN 03/22/19 03/22/19 History insulin glargine [Basaglar KwikPen 17 unit SUBCUT DAILY 03/22/19 03/22/19 History U-100 Insulin] mesalamine 1 g WI HS 03/22/19 03/22/19 History sertraline 50 mg PO DAILY 03/22/19 03/22/19 History vedolizumab [Entyvio] 300 mg IV WK 03/22/19 03/22/19 History zinc sulfate [Zinc-220] 220 mg PO BID 03/22/19 03/22/19 History Patient History Medical History Clostridium difficile diarrhea (Acute) SIRS (systemic inflammatory response syndrome) Hypoglycemia associated with diabetes Depression History of venous thromboembolism Hypomagnesemia (Acute) Ulcerative (chronic) pancolitis with unspecified complications (Chronic) Colitis (Acute) 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) "Abnormal right breast mammogram Biopsy-positive for DCIS Status post lumpectomy with no residual tumor stage pTis NXMX Estrogen receptor positive, progesterone receptor positive Status post completion of radiation therapy 02/22/2013 received 3850 cGy utilizing accelerated partial breast treatment " HTN (hypertension) (Chronic) T2DM (type 2 diabetes mellitus) (Chronic) Acute hyponatremia (Acute) Acute kidney injury (Acute) Severe sepsis Diverticulitis large intestine (Acute) Leukocytosis (leucocytosis) (Acute) DVT (deep venous thrombosis) Pancolitis (Acute) DVT prophylaxis History of recent steroid use Anemia (Acute) Pulmonary embolism Hypokalemia C. difficile diarrhea Hypomagnesemia (Acute) UTI (urinary tract infection) (Acute) DVT (deep venous thrombosis) (Chronic) BILT LEGS 03/2018 History of recent steroid use (Chronic) GERD (gastroesophageal reflux disease) (Chronic) GI bleed (Chronic) Breast cancer, right (Chronic) 2012--SX & RADIATION, NO CHEMO Sepsis (Resolved) 03/2018 Hypertension (Chronic) Diabetes mellitus type 2, controlled (Chronic) Crohns disease (Chronic) Hypothyroidism (Chronic) History of pulmonary embolus (PE) (Chronic) "dx in 2001, unprovoked" HLD (hyperlipidemia) (Chronic) Obesity (BMI 30-39.9) (Chronic) Surgical History H/O breast biopsy (Chronic) 2012--RIGHT MALIGNANT Status post glaucoma surgery (Chronic) BILT History of tonsillectomy and adenoidectomy (Chronic) History of colonoscopy (Chronic) S/P insertion of IVC (inferior vena caval) filter (Chronic) 03/29/[address] 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 Beliefs That Will Affect Care: Caodaism Caodaism Beliefs: Orthodox marital status: Single Current Living Situation: Alone Current Living Situation Comment: alone Other Information That Helps Us Care for You: No Feels Safe at Home: Yes Safety Concerns: Feels Safe At This Time Smoking Status: Never smoker Second Hand Exposure: No ; Hx Alcohol Use: No Hx Substance Use: No Review of Systems Review of Systems: All systems reviewed & are unremarkable except as noted in HPI & below Physical Exam Constitutional: WD/WN, vitals as above well developed, + ill appearing (pale, nauseated), + frail appearing, + disheveled, cooperative and comfortable; not in distress and not combative Eyes: PERRL, conjunctivae normal, anicteric sclerae EOM intact bilaterally ENMT: external ear and nose normal, oropharynx normal Ears: no hearing impairment Nose: no nasal discharge Neck: trachea midline; no neck crepitus and neck nontender Respiratory: normal respiratory effort, lungs clear to auscultation does not use accessory muscles and no cough Auscultation: lungs clear to auscultation bilaterally and + diminished lung sounds Cardiovascular: Rate/Rhythm: regular rate and regular rhythm Heart Sounds: no gallop and no murmur Vessels: normal peripheral pulses, femoral pulses present, posterior tibial pulses present, dorsalis pedis pulses present, brachial pulses present and radial pulses present; no carotid bruit and no femo ral bruit Extremities: normal capillary refill and + edema (LLE +4 edema) Gastrointestinal (Abdomen): normal bowel sounds, soft, nontender, no hepatosplenomegaly Inspection/Auscultation: abdomen normal to inspection and normal bowel sounds; abdomen not distended Percussion/Palpation: abdomen soft; abdomen nontender, no guarding and abdomen not rigid Musculoskeletal: no cyanosis or clubbing, extremities motor strength 5/5 Head/Neck/Chest: normocephalic, head atraumatic and neck supple Extremities: full ROM of extremities, + abnormal strength and no cyanosis Skin: no rashes, warm and dry + mottling (LLE with slight blue/purplish tinge.); no rashes, no lesions, no ulcers, no induration, no erythema and no eschar Neurologic: moves all extremities and awake; no focal motor deficits and not confused Speech / Cognition: no expressive aphasia and no receptive aphasia Motor/Sensory: no tremor and no sensory deficit Cranial Nerves: EOM intact bilaterally, normal facial strength and tongue midline Psychiatric: Orientation: alert, oriented x 3 and cooperative Apperance: appropriately dressed Affect: + depressed affect and + flat affect Thought Process: goal directed thought process, linear/logical thought process and clear/coherent thought process Cognition: recent memory grossly intact, remote memory grossly intact, attention grossly intact and language grossly intact Estimated Intelligence: average estimated intelligence Results & Data Vital Signs (Past 12 Hours) Vital Signs Temp Pulse Resp BP Pulse Ox 03/22/19 07:34 36.9 C 110 H 18 100/70 97 03/22/19 04:05 95 H 18 115/71 97
--- NOTE | 2019-03-22 17:19 | Hospitalist Progress Note ---
Date of Service March 22, 2019 Assessment & Plan (1) DVT (deep venous thrombosis): Patient is a 63 yr female who presents with extensive deep venous thrombosis in the left lower extremity. Extensive DVT of Left Lower Extremity H/O DVT, PE S/P IVC filter H/O GI bleed due to Ulcerative colitis --Venous Doppler:Extensive left lower extremity deep venous thrombus. The appearance favors acute thrombus. Overall, increase in extent when compared to prior ultrasound of April 26, 2018. --Arterial Doppler:Technically limited exam due to the presence of extensive deep venous thrombosis. Arterial structures are patent with no evidence for significant stenotic process. Continue IV Heparin Monitor CBC Appreciate Vascular Surgery Input--Thigh high compression therapy, No indication for vascular surgery, No signs of Cerulea Dolens Hypokalemia: Likely due to GI loses Replace and monitor electrolytes Elevated lactic acid No clear etiology Normalized with IV fluids DM II: Last A1C: 6.2 Continue ISS, lantus Monitor BGs Hypothyroidism High TSH, normal Free T4 Continue Synthroid Needs repeat Thyroid function test as outpatient Ulcerative colitis. Ongoing bloody diarrhea Stool Studies to R/O C.diff Continue budesonide Also on Entyvio Q8 weeks Dicyclomine PRN Appreciate GI Input Monitor CBC while on IV Heparin for DVT Anemia of Chronic disease Hb near baseline Monitor CBC Depression on Zoloft Acute kidney injury Baseline C: around 0.8 Continue IV fluids Monitor renal function History of recurrent C. difficile S/P fecal transplant Stool studies to rule out C. difficile DVT Px: on IV heparin ggt Code Status Full Code Disposition: PT/OT prior to discharge Social Service Consulted Subjective Patient is seen and examined at bedside Complains of left lower extremity swelling, pain and discoloration Also reports lower abdominal discomfort, bloody bowel movements, nausea Denies any chest pain, shortness of breath, dizziness Family at bedside Offers no other complaints Review of Systems Review of Systems: All systems reviewed & are unremarkable except as noted in HPI & below Physical Exam Physical Exam: Physical Exam: Vitals signs as noted above General Appearance:Moderately built and nourished, no apparent distress Head: normocephalic, Atraumatic Eyes: normal inspection, EOMI Neck: supple, Trachea midline Respiratory/Chest: Normal breath sounds, CTA Cardiovascular: S1, S2, No murmur, +tachycardia Abdomen/GI:Soft, Non tender, Bowel sounds present Extremities/Musculoskelatal:normal inspection, L LE swelling, discoloration Neurologic/Psych:AAOX3, grossly no focal neurological deficits Skin: normal color, warm Results & Data Vital Signs (Past 12 Hours) Vital Signs Temp Pulse Resp BP Pulse Ox 03/22/19 15:24 36.9 C 109 H 16 113/79 99 03/22/19 07:34 36.9 C 110 H 18 100/70 97 Laboratory Results Short CBC 03/21/19 03/22/19 03/22/19 Range/Units 23:45 00:59 14:07 WBC 17.08 H 16.37 H (4.8-10.8) K/uL Hgb 10.6 L 10.6 L 10.6 L (12.0-16.0) g/dL Hct 31.9 L 31.1 L 31.6 L (37-47) % Plt Count 315 237 (130-400) K/uL BMP 03/21/19 03/22/19 23:45 14:07 Sodium 135 L 136 Potassium 2.4 L* 3.6 D Chloride 98 105 Carbon Dioxide 23 20 L BUN 18 23 H Creatinine 1.38 H 1.36 H Glucose 314 H* 197 H Calcium 8.5 9.0 Liver Function 03/21/19 Range/Units 23:45 Total Bilirubin 0.9 (0.2-1) mg/dl AST 11 L (15-37) U/L ALT 7 L (12-78) U/L Alkaline Phosphatase 169 H (45-117) U/L Albumin 2.3 L (3.4-5.0) gm/dl (1) DVT (deep venous thrombosis) Affected thrombotic vein of extremity: unspecified vein of extremity Chronicity: acute DVT location: lower extremity Laterality: left Qualified Code(s): I82.402 - Acute embolism and thrombosis of unspecified deep veins of left lower extremity
[2019-03-22 21:26] LABS: Partial Thromboplastin Ratio 3.8
[2019-03-22 21:30] LABS: Partial Thromboplastin Time 102.6 Seconds (21.0-31.0)
[2019-03-22 23:26] LABS: Partial Thromboplastin Ratio 3.5
[2019-03-22 23:30] LABS: Partial Thromboplastin Time 95.4 Seconds (21.0-31.0)
[2019-03-23] MEDS: HEPARIN SODIUM/DEXTROSE 25,000 UNITS/500 ML BAG IV SCH ×2 (00:37→07:03)
[2019-03-23] MEDS: LEVOTHYROXINE SODIUM 75 MCG TABLET PO SCH (05:38)
[2019-03-23 06:47] LABS: Basophils # (auto) 0.04 K/uL (0-0.2); Basophils % (auto) 0.4 %; Eosinophils # (auto) 0.11 K/uL (0-0.5); Eosinophils % (auto) 1.1 %; Hematocrit (blood only) 31.5 % (37-47); Hemoglobin 10.2 g/dL (12.0-16.0); Immature Granulocytes # (auto) 0.13 K/uL (0.00-0.02); Immature Granulocytes % (auto) 1.3 %; Lymphocytes # (auto) 2.25 K/uL (1.2-3.4); Lymphocytes % (auto) 22.1 %; Mean Corpuscular Hgb Conc 32.4 g/dL (32-36); Mean Corpuscular Volume 86.5 fL (80-100); Monocytes # (auto) 0.89 K/uL (0.11-0.59); Monocytes % (auto) 8.7 %; Neutrophils # (auto) 6.76 K/uL (1.4-6.5); Neutrophils % (auto) 66.4 %; Platelet Count 308 K/uL (130-400); RDW Coefficient of Variation 15.6 % (11.5-14.5); Red Blood Count 3.64 M/uL (4.2-5.4); White Blood Count 10.18 K/uL (4.8-10.8)
[2019-03-23 06:57] LABS: Estimated Average Glucose 220 mg/dl; Hemoglobin A1C 9.3 % (4.5-5.6)
[2019-03-23] MEDS: NSS + 20MEQ KCL 20 MEQ/1,000 ML BAG IV SCH (07:04)
[2019-03-23 07:28] LABS: BUN Creatinine Ratio 17.6 (10-20); Calcium 8.8 mg/dl (8.5-10.1); Creatinine Clr Calc Pharmacy 31.1 ml/min; Est GFR (African American) 39.1; Est GFR (Non-African American) 33.7; Magnesium 1.9 mg/dl (1.8-2.4); Potassium 4.9 mmol/L (3.5-5.1)
[2019-03-23] MEDS: SODIUM CHLORIDE 0.9% 500 ML IV SCH ×3 (08:30→19:39)
[2019-03-23] MEDS: ASPIRIN 325 MG ECTAB PO SCH (08:40)
[2019-03-23] MEDS: BUDESONIDE EC 3 MG CAP PO SCH (08:40)
[2019-03-23] MEDS: LACTOBACILLUS ACIDOPHILUS (FLORANEX) TAB PO SCH ×3 (08:40→21:10)
[2019-03-23] MEDS: SERTRALINE HCL 50 MG TABLET PO SCH (08:41)
[2019-03-23] MEDS: ANASTROZOLE 1 MG TAB PO SCH (08:41)
[2019-03-23] MEDS: ZINC SULFATE 220 MG CAPSULE PO SCH ×2 (08:42→21:11)
[2019-03-23] MEDS: CHOLECALCIFEROL 1,000 UNITS TAB PO SCH (08:42)
[2019-03-23] MEDS: PANTOprazole 40 MG TAB PO SCH (08:43)
[2019-03-23] MEDS: CALCIUM 600MG + VIT D 400 IU TAB PO SCH (08:44)
[2019-03-23] MEDS: INSULIN GLARGINE SOLOSTAR 100 UNITS/ML 3 ML PEN SC SCH (08:45)
[2019-03-23] MEDS: INSULIN ASPART 100 UNITS/ML 3 ML PEN SC SCH ×4 (08:49→21:13)
[2019-03-23] MEDS: POTASSIUM CHLORIDE 20 MEQ TABCR PO SCH ×2 (09:00→21:12)
--- NOTE | 2019-03-23 10:03 | Ultrasound Report ---
RENAL ULTRASOUND CLINICAL HISTORY: KOKI R/O Obstruction COMPARISON STUDY: CT of the abdomen and pelvis June 28, 2018. TECHNIQUE: Sonography of the kidneys and the urinary bladder was performed. FINDINGS: Right kidney measures 10 cm in maximal dimension and the left measures 9 cm. There is no hy dronephrosis. A 1 cm cyst within the right kidney is noted. A 1 cm hypoechoic lesion within the midpo le of the left kidney corresponds to the indeterminate lesion shown on CT of June 28, 2018. A few left renal cysts are also noted. Bladder suboptimally assessed given underdistention. Neither ureter al jet was identified. IMPRESSION: 1. No hydronephrosis. 2. 1 cm indeterminate left renal lesion which appears similar to CT of June 28, 2018. Electronically signed by: Douglas Snyder M.D. 03/23/2019 10:02 AM
--- NOTE | 2019-03-23 12:48 | Gastroenterology Progress Note ---
Date of Service March 23, 2019 Assessment & Plan (1) DVT (deep venous thrombosis): (2) Ulcerative (chronic) pancolitis with unspecified complications: Pt is a 63 y/o female w hx of UC currently admitted for LLE DVT. She had hx of Cdiff, aeromonas infection; s/p fecal transplant. Last Cdiff and stool cx checked in February negative. She is having symptoms of frequent loose BM associated w abd pain and mild nausea. She reports rectal bleeding but RN reports none. CT (outpt) and inflammatory markers suggestive of UC flare. - Repeat Cdiff and stool cx check-> Cdiff negative, stool cx pending - Will continue Budesonide 9mg daily - Last Entyvio dose 02/21, continue [id number] infusion - Dicyclomine 10mg BID - Consider adding Imodium for loose stools if infectious workup negative - Vascular Surgery following Supervising Physician Co-Signing Physician Notes I performed a history and physical examination of the patient, including specifically on physical exam - soft, nontender abdomen. I have discussed the p atient's management with Mera. Please refer to the nurse practitioner's note for the documented findings and plan of care. No rectal bleeding while on Heparin. Continue to monitor. If remains stable, will sign off and follow her up as OP. Subjective Pt having less pain on LLE, though still appears to be swollen. LLE not dusky anymore She is still having frequent loose stools and mild abd cramping, no rectal bleeding. H/H stable Review of Systems Review of Systems: All systems reviewed & are unremarkable except as noted in HPI & below Physical Exam Constitutional: well groomed, cooperative and comfortable Eyes: PERRL, conjunctivae normal, anicteric sclerae ENMT: external ear and nose normal, oropharynx normal Respiratory: normal respiratory effort, lungs clear to auscultation Cardiovascular: RRR, no murmur, no edema Gastrointestinal (Abdomen): normal bowel sounds, soft, nontender, no hepatosplenomegaly Skin: no rashes, warm and dry no jaundice Psychiatric: A+Ox3, euthymic affect Lymphatic: + lymphedema (LLE swelling (DVT)) Results & Data Vital Signs (Past 12 Hours) Vital Signs Temp Pulse Pulse Resp BP Pulse Ox 03/23/19 11:00 36.5 C 93 H 18 115/79 99 03/23/19 07:32 89 09/12/19 07:20 113 H 18 124/86 97 03/23/19 05:08 36.6 C 113 H 18 120/82 97 (1) DVT (deep venous thrombosis) Affected thrombotic vein of extremity: unspecified vein of extremity Chronicity: acute DVT location: lower extremity Laterality: left Qualified Code(s): I82.402 - Acute embolism and thrombosis of unspecified deep veins of left lower extremity
[2019-03-23] MEDS: ONDANSETRON INJ 2 MG/ML 2 ML VIAL IV PRN (13:07)
[2019-03-23] MEDS: DICYCLOMINE HCL 10 MG CAP PO SCH (13:09)
--- NOTE | 2019-03-23 16:52 | Hospitalist Progress Note ---
Date of Service March 23, 2019 Assessment & Plan (1) DVT (deep venous thrombosis): Patient is a 63 yr female who presents with extensive deep venous thrombosis in the left lower extremity. Extensive DVT of Left Lower Extremity H/O DVT, PE S/P IVC filter H/O GI bleed due to Ulcerative colitis --Venous Doppler:Extensive left lower extremity deep venous thrombus. The appearance favors acute thrombus. Overall, increase in extent when compared to prior ultrasound of April 26, 2018. --Arterial Doppler:Technically limited exam due to the presence of extensive deep venous thrombosis. Arterial structures are patent with no evidence for significant stenotic process. Continue IV Heparin Monitor CBC Appreciate Vascular Surgery Input--Thigh high compression therapy, No indication for vascular surgery, No signs of Cerulea Dolens Plan to transition to Coumadin if no further bleeding issues, and if OK with GI Hypokalemia: Likely due to GI loses Replace and monitor electrolytes Elevated lactic acid No clear etiology Normalized with IV fluids DM II: Last A1C: 6.2 Continue ISS, lantus Monitor BGs Hypothyroidism High TSH, normal Free T4 Continue Synthroid Needs repeat Thyroid function test as outpatient Ulcerative colitis. Ongoing bloody diarrhea Stool Studies to R/O C.diff Continue budesonide Also on Entyvio Q8 weeks Dicyclomine PRN Appreciate GI Input Monitor CBC while on IV Heparin for DVT Hb stable Anemia of Chronic disease Hb near baseline Monitor CBC Depression on Zoloft Acute kidney injury Baseline C: around 0.8 Renal USD:No hydronephrosis. 1 cm indeterminate left renal lesion which appears similar to CT of June 28, 2018. Continue IV fluids Monitor renal function Consider nephrology consult if renal function continues to worsen History of recurrent C. difficile S/P fecal transplant Stool studies to rule out C. difficile DVT Px: on IV heparin ggt Code Status Full Code Disposition: PT/OT prior to discharge Social Service Consulted Subjective Patient is seen and examined at bedside Left leg pain, abdominal pain improving Still has left lower extremity swelling Had brown-colored bowel movement today Denies any chest pain, shortness of breath, dizziness Discussed with GI today Review of Systems Review of Systems: All systems reviewed & are unremarkable except as noted in HPI & below Physical Exam Physical Exam: Physical Exam: Vitals signs as noted above General Appearance:Moderately built and nourished, no apparent distress Head: normocephalic, Atraumatic Eyes: normal inspection, EOMI Neck: supple, Trachea midline Respiratory/Chest: Normal breath sounds, CTA Cardiovascular: S1, S2, No murmur Abdomen/GI:Soft, Non tender, Bowel sounds present Extremities/Musculoskelatal:normal inspection, L LE swelling, discoloration improving Neurologic/Psych:AAOX3, grossly no focal neurological deficits Skin: normal color, warm Results & Data Vital Signs (Past 12 Hours) Vital Signs Temp Pulse Pulse Resp BP BP Pulse Ox 03/23/19 15:51 85 03/23/19 15:13 35.6 C L 78 22 121/78 100 03/23/19 11:00 36.5 C 93 H 18 115/79 99 03/23/19 07:32 89 03/23/19 07:20 113 H 18 124/86 97 03/23/19 05:08 36.6 C 113 H 18 120/82 97 Laboratory Results Short CBC 03/23/19 Range/Units 06:40 WBC 10.18 (4.8-10.8) K/uL Hgb 10.2 L (12.0-16.0) g/dL Hct 31.5 L (37-47) % Plt Count 308 (130-400) K/uL BMP 03/23/19 06:40 Sodium 135 L Potassium 4.9 D Chloride 106 Carbon Dioxide 20 L BUN 28 H Creatinine 1.60 H Glucose 206 H Calcium 8.8 (1) DVT (deep venous thrombosis) Affected thrombotic vein of extremity: unspecified vein of extremity Chronicity: acute DVT location: lower extremity Laterality: left Qualified Code(s): I82.402 - Acute embolism and thrombosis of unspecified deep veins of left lower extremity
[2019-03-23 19:55] LABS: Appearance Urine Turbid (Clear); Bacteria Urine Automated 4+ (Negative); Blood Urine 2+ (Negative); Color Urine Dark Yellow; Epithelial Cell Urine Auto >30 /lpf (0-5); Glucose Urine UA Negative (Negative); Ketones Urine Negative (Negative); Leukocyte Esterase Urine 2+ (Negative); Nitrite Urine Positive (Negative); Protein Urine Trace (Negative); Specific Gravity Urine 1.022 (1.000-1.030); Urobilinogen Urine Negative (Negative); WBC Urine Automated >30 /hpf (0-5)
[2019-03-23 20:00] LABS: Bilirubin Urine Negative (Negative); Ictotest Urine Negative (Negative)
[2019-03-23 20:26] LABS: RBC Urine Automated 0-4 /hpf (0-4)
[2019-03-23 20:33] LABS: Amorphous Sediment Urine Present (None Prsent)
[2019-03-23] MEDS ORDERED: INSULIN GLARGINE SOLOSTAR 100 UNITS/ML 3 ML PEN SC SCH (21:00)
[2019-03-23] MEDS: SODIUM CHLORIDE 0.9% 1,000 ML IV SCH (21:17)
--- NOTE | 2019-03-24 05:08 | Hospitalist Progress Note ---
Date of Service March 24, 2019 Subjective Made aware by RN of blood tinged pasty beaver stool symptoms with epigastric discomfort. CT abdomen pelvis initial read: Nonspecific colitis, extensive subcutaneous stranding more prominent left abdomen. AP LGIB secondary to colitis hx IBD Recurrent DVT status post IVC filter on IV heparin Clear liquids for now IV Ceftriaxone, Flagyl for colitis Follow official CT results update GI of developments in a.m. Hold ASA, IV heparin for now, trend H&H Will relay to AM provider. Results & Data Vital Signs (Past 12 Hours) Vital Signs Temp Pulse Pulse Resp BP Pulse Ox 03/24/19 02:57 37 C 82 20 130/77 99 03/24/19 00:25 98 H 03/23/19 23:45 37 C 87 16 111/71 98 03/23/19 19:23 37 C 109 H 18 112/67 99
[2019-03-24 05:33] LABS: Hematocrit (blood only) 30.7 % (37-47); Hemoglobin 9.9 g/dL (12.0-16.0); Mean Corpuscular Hemoglobin 27.9 pg (25-34); Mean Corpuscular Hgb Conc 32.2 g/dL (32-36); Mean Corpuscular Volume 86.5 fL (80-100); Mean Platelet Volume 8.8 fL (7.4-10.4); Platelet Count 289 K/uL (130-400); RDW Coefficient of Variation 15.4 % (11.5-14.5); RDW Standard Deviation 48.1 fL (36.4-46.3); Red Blood Count 3.55 M/uL (4.2-5.4); White Blood Count 7.68 K/uL (4.8-10.8)
[2019-03-24] MEDS: SODIUM CHLORIDE 0.9% 1,000 ML IV SCH ×3 (05:36→23:24)
[2019-03-24] MEDS: LEVOTHYROXINE SODIUM 75 MCG TABLET PO SCH (05:38)
[2019-03-24 05:51] LABS: Basophils # (auto) 0.02 K/uL (0-0.2); Basophils % (auto) 0.3 %; Echinocytes 1+; Eosinophils # (auto) 0.15 K/uL (0-0.5); Immature Granulocytes # (auto) 0.16 K/uL (0.00-0.02); Immature Granulocytes % (auto) 2.1 %; Lymphocytes # (auto) 1.84 K/uL (1.2-3.4); Monocytes # (auto) 0.56 K/uL (0.11-0.59); Monocytes % (auto) 7.3 %; Neutrophils # (auto) 4.95 K/uL (1.4-6.5); Neutrophils % (auto) 64.3 %; Ovalocytes 1+
[2019-03-24 05:53] LABS: Partial Thromboplastin Ratio 1.5; Partial Thromboplastin Time 40.3 Seconds (21.0-31.0); Prothrombin Time 10.3 Seconds (9.0-12.0)
[2019-03-24 05:57] LABS: BUN Creatinine Ratio 18.8 (10-20); Calcium 8.5 mg/dl (8.5-10.1); Creatinine Clr Calc Pharmacy 30.5 ml/min; Est GFR (African American) 38.2; Magnesium 1.9 mg/dl (1.8-2.4); Potassium 4.2 mmol/L (3.5-5.1)
[2019-03-24] MEDS: cefTRIAXone SODIUM 1,000 MG in DEXTROSE 5% 50 ML IV SCH (07:38)
--- NOTE | 2019-03-24 07:52 | CT Scan Report ---
CT SCAN OF THE ABDOMEN AND PELVIS WITHOUT IV CONTRAST CLINICAL HISTORY: Generalized abdominal pain. Lower GI bleeding. COMPARISON STUDY: Abdominal CT dated 06/28/2018. TECHNIQUE: CT scan of the abdomen and pelvis is performed from the lung bases to the proximal femora. Images are reviewed in the axial, sagittal, and coronal planes. IV contrast was not administered for this examination as per the referring clinician. A dose lowering technique was utilized adhering to the principles of ALARA. CT DOSE: 522.73 mGy.cm FINDINGS: Lung bases: The heart is normal in size and without pericardial effusion. The coronary arteries are d ensely calcified. Linear atelectasis is noted at the left lung base. The lung bases are otherwise lenore ar. Liver: The unenhanced liver is normal in size and contour. The liver demonstrates diffusely diminishe d attenuation consistent with hepatic steatosis. Fatty sparing is seen adjacent to gallbladder fossa. There is no intrahepatic biliary ductal dilatation. Gallbladder: There is a large calcified gallstone which measures at least 3.1 cm. There is no CT evid ence of acute cholecystitis. Spleen: Normal in size and attenuation. Pancreas: The unenhanced pancreas is moderately atrophic and grossly unremarkable. Adrenal glands: Unremarkable. Kidneys: The unenhanced kidneys are atrophic and without hydronephrosis. There are no renal calculi i dentified. A subcentimeter hyperdense cyst is noted in the interpolar left kidney. Abdominal vasculature: The abdominal aorta is normal in course and caliber noting moderate to advance d atherosclerotic calcification. An infrarenal IVC filter is in place. Bowel: There is mild diverticulosis of the left colon without CT evidence of acute diverticulitis. Th ere is a long segment of mildly thick-walled and edematous left colon which extends from the splenic flexure to the sigmoid. There is associated pericolonic infiltration, and the appearance is consisten t with a nonspecific colitis. No bowel obstruction is seen. A small duodenal diverticulum is noted. T he appendix is not identified and reported surgically absent. Peritoneum: There is no intraperitoneal free air or abdominal ascites. There is a small fat-containin g umbilical hernia. Lymphadenopathy: None. Pelvic viscera: The bladder is partially decompressed and grossly unremarkable. The uterus and adnexa are normal as imaged. Skeletal structures: The skeletal structures are heterogeneously osteopenic. Mild lumbosacral spondyl osis is observed. No lytic or blastic lesions are seen. Soft tissues: There is marked induration of the subcutaneous fat in the left flank which extends from the lower chest to the groin. There is also infiltration of the deep soft tissues surrounding the le ft thigh musculature. No subcutaneous gas is identified. No organized fluid collection is clearly afsaneh ntified. IMPRESSION: 1. Findings are consistent with a mild nonspecific colitis of the left colon. This could be on an inf ectious, inflammatory, or ischemic basis and clinical correlation will be required. 2. There is extensive induration of the subcutaneous fat in the left flank which extends from the low er chest to the groin and left upper thigh. There is infiltration of the left lateral abdominal wall musculature which appears expanded and hypodense. There is also infiltration with trace surrounding f luid seen involving the deep soft tissues and musculature of the left thigh. No subcutaneous gas is s een. No organized fluid collection is clearly identified. Correlate clinically for evidence of infect ion/cellulitis or less likely large contusion. 3. Cholelithiasis. 4. Hepatic steatosis. 5. There is mild colonic diverticulosis without CT evidence of acute diverticulitis. 6. Additional findings as above. Electronically signed by: John Bojorquez M.D. 03/24/2019 7:50 AM
[2019-03-24] MEDS: LACTOBACILLUS ACIDOPHILUS (FLORANEX) TAB PO SCH ×3 (08:40→21:21)
[2019-03-24] MEDS: PANTOprazole 40 MG TAB PO SCH (08:40)
[2019-03-24] MEDS: CHOLECALCIFEROL 1,000 UNITS TAB PO SCH (08:41)
[2019-03-24] MEDS: CALCIUM 600MG + VIT D 400 IU TAB PO SCH (08:41)
[2019-03-24] MEDS: ZINC SULFATE 220 MG CAPSULE PO SCH ×2 (08:42→21:21)
[2019-03-24] MEDS: BUDESONIDE EC 3 MG CAP PO SCH (08:42)
[2019-03-24] MEDS: SERTRALINE HCL 50 MG TABLET PO SCH (08:42)
[2019-03-24] MEDS: DICYCLOMINE HCL 10 MG CAP PO SCH ×2 (08:43→21:21)
[2019-03-24] MEDS: metroNIDAZOLE 500 MG/100 ML BAG IV SCH ×3 (08:43→23:47)
[2019-03-24] MEDS: ANASTROZOLE 1 MG TAB PO SCH (08:43)
[2019-03-24] MEDS: INSULIN ASPART 100 UNITS/ML 3 ML PEN SC SCH ×4 (08:45→21:18)
[2019-03-24] MEDS: INSULIN GLARGINE SOLOSTAR 100 UNITS/ML 3 ML PEN SC SCH ×2 (08:45→21:17)
[2019-03-24] MEDS: POTASSIUM CHLORIDE 20 MEQ TABCR PO SCH ×2 (08:47→21:21)
--- NOTE | 2019-03-24 11:30 | Gastroenterology Progress Note ---
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 She had hx of Cdiff, aeromonas infection; s/p fecal transplant. Last Cdiff and stool cx checked in February negative. She is having symptoms of frequent loose BM associated w abd pain and mild nausea. She reports rectal bleeding but RN reports none. CT (outpt) and inflammatory markers suggestive of UC flare. Repeat stool studies this time negative. Ovenight she had pasty and ?blood tinged stools w/o drop in H/H. CT abd/pelvis obtained showed signs of L sided colitis. L lower abd/flank infiltration signs likely related to LLE DVT and extensive edema. - Repeat Cdiff and stool cx check-> Cdiff negative, stool cx pending - Will continue Budesonide 9mg daily - Last Entyvio dose 02/21, continue [id number] infusion - Dicyclomine 10mg BID - Will add Canasa 1g [place] suppository - Would recommend restarting Heparin for eventual transition to Coumadin, given non significant rectal bleeding and stools are forming up. Please call GI if she has any further s/s of rectal bleeding. - Vascular Surgery following Supervising Physician Co-Signing Physician Notes I performed a history and physical examination of the patient, including specifically on physical exam - soft, nontender abdomen. I have discussed the patient's management with Mera. Please refer to the nurse practitioner's note for the documented findings and plan of care. Complex case of IBD and nonresponding to aggressive therapy, could not achieve deep remission yet, her disease more extensive on the life side of the colon, now with extensive DVT. I recommend starting AC on her. If any evidence of GI bleeding, should transfer the patient to a tertiary care center with IBD service for further management and I recommend surgical intervention with at least subtotal colectomy. Also recommend hematology evaluation to evaluate for underlying thrombophilic disorder. 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 Recall GI if needed though if any further change in her clinical status over the weekend, please transfer to a tertiary care center. Subjective Pt had "pasty blood tinged stools" early this AM. Overnight Heparin gtt was stopped. H/H remained stable. She denies any more BMs this AM. Abd pain mild, no n/v. Review of Systems Review of Systems: All systems reviewed & are unremarkable except as noted in HPI & below Physical Exam Constitutional: well groomed, cooperative and comfortable Eyes: PERRL, conjunctivae normal, anicteric sclerae ENMT: external ear and nose normal, oropharynx normal Respiratory: normal respiratory effort, lungs clear to auscultation Cardiovascular: RRR, no murmur, no edema Gastrointestinal (Abdomen): Inspection/Auscultation: normal bowel sounds Percussion/Palpation: + abdomen tender (mild ) and abdomen soft Skin: no rashes, warm and dry no jaundice Psychiatric: A+Ox3, euthymic affect Lymphatic: + lymphedema (LLE swelling (DVT)) Results & Data Vital Signs (Past 12 Hours) Vital Signs Temp Pulse Pulse Resp BP Pulse Ox 03/24/19 08:00 36.8 C 93 H 18 104/71 98 03/24/19 07:26 60 03/24/19 02:57 37 C 82 20 130/77 99 03/24/19 00:25 98 H 03/23/19 23:45 37 C 87 16 111/71 98 (1) DVT (deep venous thrombosis) Affected thrombotic vein of extremity: unspecified vein of extremity Chronicity: acute DVT location: lower extremity Laterality: left Qualified Code(s): I82.402 - Acute embolism and thrombosis of unspecified deep veins of left lower extremity
[2019-03-24] MEDS: ONDANSETRON INJ 2 MG/ML 2 ML VIAL IV PRN (11:48)
[2019-03-24 12:09] LABS: Hematocrit (blood only) 29.9 % (37-47); Hemoglobin 9.8 g/dL (12.0-16.0)
[2019-03-24] MEDS ORDERED: Heparin IV Standard *NO* Bolus IV SCH (16:54)
[2019-03-24] MEDS ORDERED: LOPERAMIDE HCL 2 MG CAP PO PRN (17:14)
[2019-03-24] MEDS: HEPARIN SODIUM/DEXTROSE 25,000 UNITS/500 ML BAG IV SCH (18:42)
--- NOTE | 2019-03-24 18:56 | Hospitalist Progress Note ---
Date of Service March 24, 2019 Assessment & Plan (1) DVT (deep venous thrombosis): Patient is a 63 yr female who presents with extensive deep venous thrombosis in the left lower extremity. Extensive DVT of Left Lower Extremity H/O DVT, PE S/P IVC filter H/O GI bleed due to Ulcerative colitis --Venous Doppler:Extensive left lower extremity deep venous thrombus. The appearance favors acute thrombus. Overall, increase in extent when compared to prior ultrasound of April 26, 2018. --Arterial Doppler:Technically limited exam due to the presence of extensive deep venous thrombosis. Arterial structures are patent with no evidence for significant stenotic process. Continue IV Heparin Monitor CBC Appreciate Vascular Surgery Input--Thigh high compression therapy, No indication for vascular surgery, No signs of Cerulea Dolens Plan to transition to Coumadin tomorrow if no recurrence of bleeding Hypokalemia: Likely due to GI loses Replace and monitor electrolytes Elevated lactic acid No clear etiology Normalized with IV fluids DM II: Last A1C: 6.2 Continue ISS, lantus Monitor BGs Hypothyroidism High TSH, normal Free T4 Continue Synthroid Needs repeat Thyroid function test as outpatient Ulcerative colitis. CT ABD as below Ongoing bloody diarrhea Stool Studies to R/O C.diff Continue budesonide Also on Entyvio Q8 weeks Dicyclomine PRN Appreciate GI Input Monitor CBC while on IV Heparin for DVT Hb minimal drop--Also partly due to IV fluids On PO ABx for colitis Added Rowasa 4gm [place] HS enema May need surgical intervention, possibly a subtotal colectomy if no improvement Plan for EUS as outpatient for pancreatic atrophy noted on CT scan Plan to transfer to tertiary care center if clinically deteriorates. Anemia of Chronic disease Hb near baseline Monitor CBC Depression on Zoloft Acute kidney injury Baseline C: around 0.8 Renal USD:No hydronephrosis. 1 cm indeterminate left renal lesion which appears similar to CT of June 28, 2018. Continue IV fluids Monitor renal function Consider nephrology consult if renal function continues to worsen History of recurrent C. difficile S/P fecal transplant Stool studies to rule out C. difficile DVT Px: on IV heparin ggt Code Status Full Code Disposition: PT/OT prior to discharge Social Service Consulted Imaging: CT ABD: 1. Findings are consistent with a mild nonspecific colitis of the left colon. This could be on an infectious, inflammatory, or ischemic basis and clinical correlation will be required. 2. There is extensive induration of the subcutaneous fat in the left flank which extends from the lower chest to the groin and left upper thigh. There is i nfiltration of the left lateral abdominal wall musculature which appears expanded and hypodense. There is also infiltration with trace surrounding fluid seen involving the deep soft tissues and musculature of the left thigh. No subcutaneous gas is seen. No organized fluid collection is clearly identified. Correlate clinically for evidence of infection/cellulitis or less likely large contusion. 3. Cholelithiasis. 4. Hepatic steatosis. 5. There is mild colonic diverticulosis without CT evidence of acute diverticulitis. 6. Additional findings as above. Review of Systems Review of Systems: All systems reviewed & are unremarkable except as noted in HPI & below Physical Exam Physical Exam: Physical Exam: Vitals signs as noted above General Appearance:Moderately built and nourished, no apparent distress Head: normocephalic, Atraumatic Eyes: normal inspection, EOMI Neck: supple, Trachea midline Respiratory/Chest: Normal breath sounds, CTA Cardiovascular: S1, S2, No murmur Abdomen/GI:Soft, Non tender, Bowel sounds present Extremities/Musculoskelatal:normal inspection, L LE swelling, discoloration improving Neurologic/Psych:AAOX3, grossly no focal neurological deficits Skin: normal color, warm Results & Data Vital Signs (Past 12 Hours) Vital Signs Temp Pulse Pulse Resp BP BP Pulse Ox 03/24/19 15:38 37.1 C 98 H 18 104/67 99 03/24/19 12:13 37.0 C 102 H 18 104/68 98 03/24/19 08:00 36.8 C 93 H 18 104/71 98 03/24/19 07:26 60 Laboratory Results Short CBC 03/24/19 03/24/19 Range/Units 05:22 11:59 WBC 7.68 (4.8-10.8) K/uL Hgb 9.9 L 9.8 L (12.0-16.0) g/dL Hct 30.7 L 29.9 L (37-47) % Plt Count 289 (130-400) K/uL BMP 03/24/19 05:22 Sodium 135 L Potassium 4.2 Chloride 106 Carbon Dioxide 21 BUN 31 H Creatinine 1.63 H Glucose 143 H Calcium 8.5 Urine 03/23/19 Range/Units 19:43 Urine Color Dark Yellow Urine Appearance Turbid A (Clear) Urine pH 5.0 (4.5-7.5) Ur Specific [place] 1.022 (1.000-1.030) Urine Protein Trace H (Negative) Urine Glucose (UA) Negative (Negative) (1) DVT (deep venous thrombosis) Affected thrombotic vein of extremity: unspecified vein of extremity Chronicity: acute DVT location: lower extremity Laterality: left Qualified Code(s): I82.402 - Acute embolism and thrombosis of unspecified deep veins of left lower extremity
[2019-03-24 20:30] LABS: Hematocrit (blood only) 28.7 % (37-47); Hemoglobin 9.3 g/dL (12.0-16.0)
[2019-03-24] MEDS ORDERED: MESALAMINE 4 GM/60 ML ENEMA PR SCH (21:00)
[2019-03-25 00:58] LABS: Partial Thromboplastin Ratio 1.4; Partial Thromboplastin Time 37.2 Seconds (21.0-31.0)
[2019-03-25] MEDS ORDERED: HEPARIN IV BOLUS 4,000 UNITS in SYRINGE 0 ML IV ONE (01:30)
[2019-03-25] MEDS: ACETAMINOPHEN 325 MG TAB PO PRN (02:17)
[2019-03-25] MEDS: cefTRIAXone SODIUM 1,000 MG in DEXTROSE 5% 50 ML IV SCH (06:01)
[2019-03-25] MEDS: LEVOTHYROXINE SODIUM 75 MCG TABLET PO SCH (06:04)
[2019-03-25 06:14] LABS: Hemoglobin 9.1 g/dL (12.0-16.0)
[2019-03-25 06:37] LABS: BUN Creatinine Ratio 17.5 (10-20); Calcium 8.2 mg/dl (8.5-10.1); Est GFR (African American) 42.6; Est GFR (Non-African American) 36.7; Potassium 3.9 mmol/L (3.5-5.1)
[2019-03-25] MEDS: metroNIDAZOLE 500 MG/100 ML BAG IV SCH ×3 (08:57→23:08)
[2019-03-25] MEDS: DICYCLOMINE HCL 10 MG CAP PO SCH ×2 (08:57→20:50)
[2019-03-25] MEDS: INSULIN GLARGINE SOLOSTAR 100 UNITS/ML 3 ML PEN SC SCH ×2 (09:00→20:51)
[2019-03-25] MEDS: INSULIN ASPART 100 UNITS/ML 3 ML PEN SC SCH ×4 (09:00→20:52)
[2019-03-25] MEDS: LACTATED RINGER'S 1,000 ML IV SCH ×2 (09:01→21:59)
[2019-03-25 12:11] LABS: Hematocrit (blood only) 27.7 % (37-47)
[2019-03-25 12:32] LABS: Partial Thromboplastin Ratio 4.3
[2019-03-25] MEDS: BUDESONIDE EC 3 MG CAP PO SCH (13:30)
[2019-03-25] MEDS: CHOLECALCIFEROL 1,000 UNITS TAB PO SCH (13:31)
[2019-03-25] MEDS: SERTRALINE HCL 50 MG TABLET PO SCH (13:32)
[2019-03-25] MEDS: LACTOBACILLUS ACIDOPHILUS (FLORANEX) TAB PO SCH ×3 (13:32→20:49)
[2019-03-25] MEDS: ANASTROZOLE 1 MG TAB PO SCH (13:33)
[2019-03-25] MEDS: CALCIUM 600MG + VIT D 400 IU TAB PO SCH (14:55)
[2019-03-25] MEDS: POTASSIUM CHLORIDE 20 MEQ TABCR PO SCH ×2 (14:56→20:51)
[2019-03-25] MEDS: PANTOprazole 40 MG TAB PO SCH (14:57)
[2019-03-25] MEDS: ZINC SULFATE 220 MG CAPSULE PO SCH ×2 (14:57→20:50)
[2019-03-25] MEDS: SODIUM CHLORIDE 0.9% 1,000 ML IV SCH (15:38)
[2019-03-25] MEDS: HEPARIN SODIUM/DEXTROSE 25,000 UNITS/500 ML BAG IV SCH (15:57)
--- NOTE | 2019-03-25 16:34 | Hospitalist Progress Note ---
Date of Service March 25, 2019 Assessment & Plan (1) DVT (deep venous thrombosis): Patient is a 63 yr female who presents with extensive deep venous thrombosis in the left lower extremity. Extensive DVT of Left Lower Extremity H/O DVT, PE S/P IVC filter H/O GI bleed due to Ulcerative colitis --Venous Doppler:Extensive left lower extremity deep venous thrombus. The appearance favors acute thrombus. Overall, increase in extent when compared to prior ultrasound of April 26, 2018. --Arterial Doppler:Technically limited exam due to the presence of extensive deep venous thrombosis. Arterial structures are patent with no evidence for significant stenotic process. Continue IV Heparin Monitor CBC Appreciate Vascular Surgery Input--Thigh high compression therapy, No indication for vascular surgery, No signs of Cerulea Dolens Plan to transition to Coumadin as able Hb drop likely dilutional to IV fluids Hypokalemia: Likely due to GI loses Replace and monitor electrolytes Elevated lactic acid No clear etiology Normalized with IV fluids DM II: Last A1C: 6.2 Continue ISS, lantus Monitor BGs Hypothyroidism High TSH, normal Free T4 Continue Synthroid Needs repeat Thyroid function test as outpatient Ulcerative colitis. CT ABD as below Ongoing bloody diarrhea Stool Studies to R/O C.diff Continue budesonide Also on Entyvio Q8 weeks Dicyclomine PRN Appreciate GI Input Monitor CBC while on IV Heparin for DVT Hb minimal drop--Also partly due to IV fluids On PO ABx for colitis Added Rowasa 4gm [place] HS enema May need surgical intervention, possibly a subtotal colectomy if no improvement Plan for EUS as outpatient for pancreatic atrophy noted on CT scan Plan to transfer to tertiary care center if recurrence of bleeding Hb drop likely dilutional secondary to IV fluids No active bleeding currently Anemia of Chronic disease Hb near baseline Monitor CBC Depression on Zoloft Acute kidney injury Metabolic acidosis--Likely due to diarrhea Baseline C: around 0.8 Cr: 1.49 today Renal USD:No hydronephrosis. 1 cm indeterminate left renal lesion which appears similar to CT of June 28, 2018. Continue IV fluids Monitor renal function Consider nephrology consult if renal function continues to worsen History of recurrent C. difficile S/P fecal transplant Stool studies: Negative for C. difficile Imodium PRN DVT Px: on IV heparin ggt Code Status Full Code Disposition: PT/OT prior to discharge Social Service Consulted Imaging: CT ABD: 1. Findings are consistent with a mild nonspecific colitis of the left colon. This could be on an infectious, inflammatory, or ischemic basis and clinical correlation will be required. 2. There is extensive induration of the subcutaneous fat in the left flank which extends from the lower chest to the groin and left upper thigh. There is infiltration of the left lateral abdominal wall musculature which appears expanded and hypodense. There is also infiltration with trace surrounding fluid seen involving the deep soft tissues and musculature of the left thigh. No subcutaneous gas is seen. No organized fluid collection is clearly identified. Correlate clinically for evidence of infection/cellulitis or less likely large contusion. 3. Cholelithiasis. 4. Hepatic steatosis. 5. There is mild colonic diverticulosis without CT evidence of acute diverticulitis. 6. Additional findings as above. Subjective Patient is seen and examined at bedside Feels a lot better today Abdominal pain much improved Feels tired Has diarrhea but no bleeding issues Hemoglobin drop likely dilutional secondary to IV fluids Denies any chest pain, shortness of breath, dizziness Review of Systems Review of Systems: All systems reviewed & are unremarkable except as noted in HPI & below Physical Exam Physical Exam: Physical Exam: Vitals signs as noted above General Appearance:Moderately built and nourished, no apparent distress Head: normocephalic, Atraumatic Eyes: normal inspection, EOMI Neck: supple, Trachea midline Respiratory/Chest: Normal breath sounds, CTA Cardiovascular: S1, S2, No murmur Abdomen/GI:Soft, Non tender, Bowel sounds present Extremities/Musculoskelatal:normal inspection, L LE swelling, discoloration improving Neurologic/Psych:AAOX3, grossly no focal neurological deficits Skin: normal color, warm Results & Data Vital Signs (Past 12 Hours) Vital Signs Temp Pulse Pulse Resp BP Pulse Ox 03/25/19 15:00 36.8 C 98 H 18 109/74 99 03/25/19 12:00 36.9 C 86 18 109/73 99 03/25/19 08:06 88 03/25/19 07:28 36.6 C 91 H 18 108/71 99 Laboratory Results Short CBC 03/24/19 03/25/19 03/25/19 Range/Units 19:46 05:54 11:59 Hgb 9.3 L 9.1 L 9.0 L (12.0-16.0) g/dL Hct 28.7 L 28.0 L 27.7 L (37-47) % BMP 03/25/19 05:54 Sodium 136 Potassium 3.9 Chloride 109 H Carbon Dioxide 17 L BUN 26 H Creatinine 1.49 H Glucose 137 H Calcium 8.2 L (1) DVT (deep venous thrombosis) Affected thrombotic vein of extremity: unspecified vein of extremity Chronicity: acute DVT location: lower extremity Laterality: left Qualified Code(s): I82.402 - Acute embolism and thrombosis of unspecified deep veins of left lower extremity
[2019-03-25 20:22] LABS: Hemoglobin 8.6 g/dL (12.0-16.0)
[2019-03-25 20:44] LABS: Partial Thromboplastin Ratio 2.2
[2019-03-25 20:55] LABS: Partial Thromboplastin Time 60.8 Seconds (21.0-31.0)
[2019-03-25] MEDS: MESALAMINE 4 GM/60 ML ENEMA PR SCH (21:14)
[2019-03-26] MEDS: LEVOTHYROXINE SODIUM 75 MCG TABLET PO SCH (05:53)
[2019-03-26] MEDS: cefTRIAXone SODIUM 1,000 MG in DEXTROSE 5% 50 ML IV SCH (05:55)
[2019-03-26 07:21] LABS: Hematocrit (blood only) 26.4 % (37-47); Hemoglobin 8.6 g/dL (12.0-16.0)
[2019-03-26] MEDS: ZINC SULFATE 220 MG CAPSULE PO SCH ×2 (07:30→20:59)
[2019-03-26] MEDS: BUDESONIDE EC 3 MG CAP PO SCH (07:31)
[2019-03-26] MEDS: PANTOprazole 40 MG TAB PO SCH (07:31)
[2019-03-26] MEDS: LACTOBACILLUS ACIDOPHILUS (FLORANEX) TAB PO SCH ×3 (07:31→20:58)
[2019-03-26] MEDS: POTASSIUM CHLORIDE 20 MEQ TABCR PO SCH ×2 (07:31→20:57)
[2019-03-26] MEDS: SERTRALINE HCL 50 MG TABLET PO SCH (07:31)
[2019-03-26] MEDS: CALCIUM 600MG + VIT D 400 IU TAB PO SCH (07:31)
[2019-03-26] MEDS: CHOLECALCIFEROL 1,000 UNITS TAB PO SCH (07:31)
[2019-03-26] MEDS: metroNIDAZOLE 500 MG/100 ML BAG IV SCH ×2 (07:32→16:10)
[2019-03-26] MEDS: DICYCLOMINE HCL 10 MG CAP PO SCH ×2 (07:32→20:58)
[2019-03-26] MEDS: ANASTROZOLE 1 MG TAB PO SCH (07:36)
[2019-03-26 07:54] LABS: Partial Thromboplastin Ratio 2.6
[2019-03-26 07:56] LABS: Partial Thromboplastin Time 69.8 Seconds (21.0-31.0)
[2019-03-26 07:58] LABS: BUN Creatinine Ratio 17.5 (10-20); Calcium 8.3 mg/dl (8.5-10.1); Creatinine Clr Calc Pharmacy 41.9 ml/min; Est GFR (African American) 53.7; Est GFR (Non-African American) 46.3; Potassium 3.5 mmol/L (3.5-5.1)
[2019-03-26] MEDS: INSULIN ASPART 100 UNITS/ML 3 ML PEN SC SCH ×4 (08:58→21:02)
[2019-03-26] MEDS: INSULIN GLARGINE SOLOSTAR 100 UNITS/ML 3 ML PEN SC SCH ×2 (08:59→21:00)
[2019-03-26] MEDS: LACTATED RINGER'S 1,000 ML IV SCH (09:35)
[2019-03-26] MEDS: HEPARIN SODIUM/DEXTROSE 25,000 UNITS/500 ML BAG IV SCH (13:56)
[2019-03-26 14:41] LABS: Hematocrit (blood only) 26.3 % (37-47); Hemoglobin 8.5 g/dL (12.0-16.0)
[2019-03-26 14:57] LABS: Partial Thromboplastin Ratio 2.6
[2019-03-26 15:03] LABS: Partial Thromboplastin Time 69.5 Seconds (21.0-31.0)
[2019-03-26] MEDS: ACETAMINOPHEN 325 MG TAB PO PRN (15:14)
--- NOTE | 2019-03-26 18:17 | Hospitalist Progress Note ---
Date of Service March 26, 2019 Assessment & Plan (1) DVT (deep venous thrombosis): Patient is a 63 yr female who presents with extensive deep venous thrombosis in the left lower extremity. Extensive DVT of Left Lower Extremity H/O DVT, PE S/P IVC filter H/O GI bleed due to Ulcerative colitis --Venous Doppler:Extensive left lower extremity deep venous thrombus. The appearance favors acute thrombus. Overall, increase in extent when compared to prior ultrasound of April 26, 2018. --Arterial Doppler:Technically limited exam due to the presence of extensive deep venous thrombosis. Arterial structures are patent with no evidence for significant stenotic process. Continue IV Heparin Monitor CBC Appreciate Vascular Surgery Input--Thigh high compression therapy, No indication for vascular surgery, No signs of Cerulea Dolens Plan to transition to Coumadin as able Hb drop likely dilutional due to IV fluids Hb:8.5 today No active bleeding issues Hypokalemia: Likely due to GI loses Replace and monitor electrolytes Elevated lactic acid No clear etiology Normalized with IV fluids DM II: Last A1C: 6.2 Continue ISS, lantus Monitor BGs Hypothyroidism High TSH, normal Free T4 Continue Synthroid Needs repeat Thyroid function test as outpatient Ulcerative colitis. CT ABD as below Ongoing bloody diarrhea Stool Studies to R/O C.diff Continue budesonide Also on Entyvio Q8 weeks Dicyclomine PRN Appreciate GI Input Monitor CBC while on IV Heparin for DVT Hb minimal drop--Also partly due to IV fluids On PO ABx for colitis Added Rowasa 4gm [place] HS enema May need surgical intervention, possibly a subtotal colectomy if no improvement Plan for EUS as outpatient for pancreatic atrophy noted on CT scan Plan to transfer to tertiary care center if recurrence of bleeding Hb drop likely dilutional secondary to IV fluids No active bleeding currently Symptomatically improved Anemia of Chronic disease Monitor CBC Depression on Zoloft Acute kidney injury Metabolic acidosis--Likely due to diarrhea Baseline C: around 0.8 Cr: 1.49>>> 1.23 Renal USD:No hydronephrosis. 1 cm indeterminate left renal lesion which appears similar to CT of June 28, 2018. Discontinue IV fluids Monitor renal function History of recurrent C. difficile S/P fecal transplant Stool studies: Negative for C. difficile Imodium PRN DVT Px: on IV heparin ggt Code Status Full Code Disposition: PT/OT prior to discharge Social Service Consulted Imaging: CT ABD: 1. Findings are consistent with a mild nonspecific colitis of the left colon. This could be on an infectious, inflammatory, or ischemic basis and clinical correlation will be required. 2. There is extensive induration of the subcutaneous fat in the left flank which extends from the lower chest to the groin and left upper thigh. There is infiltration of the left lateral abdominal wall musculature which appears expanded and hypodense. There is also infiltration with trace surrounding fluid seen involving the deep soft tissues and musculature of the left thigh. No subcutaneous gas is seen. No organized fluid collection is clearly identified. Correlate clinically for evidence of infection/cellulitis or less likely large contusion. 3. Cholelithiasis. 4. Hepatic steatosis. 5. There is mild colonic diverticulosis without CT evidence of acute diverticulitis. 6. Additional findings as above. Subjective Patient is seen and examined at bedside No new complaints No bleeding issues Renal function is improving Denies any chest pain, shortness of breath, dizziness, abd pain IV fluids DCed Review of Systems Review of Systems: All systems reviewed & are unremarkable except as noted in HPI & below Physical Exam Physical Exam: Physical Exam: Vitals signs as noted above General Appearance:Moderately built and nourished, no apparent distress Head: normocephalic, Atraumatic Eyes: normal inspection, EOMI Neck: supple, Trachea midline Respiratory/Chest: Normal breath sounds, CTA Cardiovascular: S1, S2, No murmur Abdomen/GI:Soft, Non tender, Bowel sounds present Extremities/Musculoskelatal:normal inspection, L LE swelling, discoloration improving Neurologic/Psych:AAOX3, grossly no focal neurological deficits Skin: normal color, warm Results & Data Vital Signs (Past 12 Hours) Vital Signs Temp Pulse Resp BP Pulse Ox 03/26/19 16:05 36.8 C 99 H 16 99/68 L 96 03/26/19 12:26 36.4 C L 53 L 20 157/68 H 95 03/26/19 08:00 36.9 C 87 18 117/70 99 Laboratory Results Short CBC 03/25/19 03/26/19 03/26/19 Range/Units 20:03 06:42 14:07 Hgb 8.6 L 8.6 L 8.5 L (12.0-16.0) g/dL Hct 26.0 L 26.4 L 26.3 L (37-47) % BMP 03/26/19 06:42 Sodium 136 Potassium 3.5 Chloride 107 Carbon Dioxide 19 L BUN 22 H Creatinine 1.23 H Glucose 123 H Calcium 8.3 L (1) DVT (deep venous thrombosis) Affected thrombotic vein of extremity: unspecified vein of extremity Chronicity: acute DVT location: lower extremity Laterality: left Qualified Code(s): I82.402 - Acute embolism and thrombosis of unspecified deep veins of left lower extremity
[2019-03-26] MEDS: MESALAMINE 4 GM/60 ML ENEMA PR SCH (21:00)
[2019-03-26 22:05] LABS: Partial Thromboplastin Ratio 2.2
[2019-03-26 22:06] LABS: Partial Thromboplastin Time 60.4 Seconds (21.0-31.0)
[2019-03-27] MEDS: metroNIDAZOLE 500 MG/100 ML BAG IV SCH ×3 (00:04→16:10)
[2019-03-27 05:57] LABS: Hematocrit (blood only) 26.4 % (37-47); Hemoglobin 8.6 g/dL (12.0-16.0)
[2019-03-27] MEDS: LEVOTHYROXINE SODIUM 75 MCG TABLET PO SCH (06:24)
[2019-03-27] MEDS: cefTRIAXone SODIUM 1,000 MG in DEXTROSE 5% 50 ML IV SCH (06:25)
[2019-03-27 06:32] LABS: BUN Creatinine Ratio 15.4 (10-20); Calcium 8.7 mg/dl (8.5-10.1); Creatinine Clr Calc Pharmacy 42.2 ml/min; Est GFR (African American) 52.6; Est GFR (Non-African American) 45.4; Potassium 3.6 mmol/L (3.5-5.1)
[2019-03-27 06:55] LABS: Partial Thromboplastin Time 54.3 Seconds (21.0-31.0)
[2019-03-27] MEDS: DICYCLOMINE HCL 10 MG CAP PO SCH ×2 (08:29→21:19)
[2019-03-27] MEDS: CHOLECALCIFEROL 1,000 UNITS TAB PO SCH (08:30)
[2019-03-27] MEDS: CALCIUM 600MG + VIT D 400 IU TAB PO SCH (08:30)
[2019-03-27] MEDS: ZINC SULFATE 220 MG CAPSULE PO SCH ×2 (08:30→21:20)
[2019-03-27] MEDS: BUDESONIDE EC 3 MG CAP PO SCH (08:31)
[2019-03-27] MEDS: SERTRALINE HCL 50 MG TABLET PO SCH (08:31)
[2019-03-27] MEDS: INSULIN ASPART 100 UNITS/ML 3 ML PEN SC SCH ×4 (08:33→21:28)
[2019-03-27] MEDS: POTASSIUM CHLORIDE 20 MEQ TABCR PO SCH ×2 (08:34→21:19)
[2019-03-27] MEDS: LACTOBACILLUS ACIDOPHILUS (FLORANEX) TAB PO SCH ×3 (08:34→21:20)
[2019-03-27] MEDS: INSULIN GLARGINE SOLOSTAR 100 UNITS/ML 3 ML PEN SC SCH ×2 (08:35→21:24)
[2019-03-27] MEDS: PANTOprazole 40 MG TAB PO SCH (08:38)
[2019-03-27] MEDS: HEPARIN SODIUM/DEXTROSE 25,000 UNITS/500 ML BAG IV SCH ×2 (09:02→13:59)
[2019-03-27] MEDS ORDERED: MICONAZOLE NITRATE POWDER 43 GM EXT PRN (09:14)
[2019-03-27] MEDS ORDERED: WARFARIN SOD 5 MG TAB PO SCH (16:00)
--- NOTE | 2019-03-27 17:58 | Hospitalist Progress Note ---
Date of Service March 27, 2019 Assessment & Plan (1) DVT (deep venous thrombosis): Patient is a 63 yr female who presents with extensive deep venous thrombosis in the left lower extremity. Extensive DVT of Left Lower Extremity H/O DVT, PE S/P IVC filter H/O GI bleed due to Ulcerative colitis --Venous Doppler:Extensive left lower extremity deep venous thrombus. The appearance favors acute thrombus. Overall, increase in extent when compared to prior ultrasound of April 26, 2018. --Arterial Doppler:Technically limited exam due to the presence of extensive deep venous thrombosis. Arterial structures are patent with no evidence for significant stenotic process. Continue IV Heparin Monitor CBC Appreciate Vascular Surgery Input--Thigh high compression therapy, No indication for vascular surgery, No signs of Cerulea Dolens Hb drop likely dilutional due to IV fluids Hb:8.6 today No active bleeding issues Started on coumadin Monitor PT/INR Hypokalemia: Likely due to GI loses Replace and monitor electrolytes Elevated lactic acid No clear etiology Normalized with IV fluids DM II: Last A1C: 6.2 Continue ISS, lantus Monitor BGs Hypothyroidism High TSH, normal Free T4 Continue Synthroid Needs repeat Thyroid function test as outpatient Ulcerative colitis. CT ABD as below Stool Studies for C.diff:Negative Continue budesonide Also on Entyvio Q8 weeks Dicyclomine PRN Appreciate GI Input Monitor CBC Hb minimal drop--Also partly due to IV fluids On PO ABx for colitis Added Rowasa 4gm [place] HS enema May need surgical intervention, possibly a subtotal colectomy if no improvement Plan for EUS as outpatient for pancreatic atrophy noted on CT scan Plan to transfer to tertiary care center if recurrence of bleeding No active bleeding currently Symptomatically improved Anemia of Chronic disease Monitor CBC Depression on Zoloft Acute kidney injury Metabolic acidosis--Likely due to diarrhea Baseline C: around 0.8 Cr: 1.49>>> 1.25 Renal USD:No hydronephrosis. 1 cm indeterminate left renal lesion which appears similar to CT of June 28, 2018. Discontinue IV fluids Monitor renal function History of recurrent C. difficile S/P fecal transplant Stool studies: Negative for C. difficile Imodium PRN DVT Px: on IV heparin ggt, coumadin Code Status Full Code Disposition: PT/OT prior to discharge Social Service Consulted Imaging: CT ABD: 1. Findings are consistent with a mild nonspecific colitis of the left colon. This could be on an infectious, inflammatory, or ischemic basis and clinical correlation will be required. 2. There is extensive induration of the subcutaneous fat in the left flank which extends from the lower chest to the groin and left upper thigh. There is infiltration of the left lateral abdominal wall musculature which appears expanded and hypodense. There is also infiltration with trace surrounding fluid seen involving the deep soft tissues and musculature of the left thigh. No subcutaneous gas is seen. No organized fluid collection is clearly identified. Correlate clinically for evidence of infection/cellulitis or less likely large contusion. 3. Cholelithiasis. 4. Hepatic steatosis. 5. There is mild colonic diverticulosis without CT evidence of acute diverticulitis. 6. Additional findings as above. Subjective Patient is seen and examined at bedside Continues to improve Had 2 loose bowel movements this morning No bleeding issues Also reports mild lower abd discomfort Denies any chest pain, shortness of breath, dizziness Review of Systems Review of Systems: All systems reviewed & are unremarkable except as noted in HPI & below Physical Exam Physical Exam: Physical Exam: Vitals signs as noted above General Appearance:Moderately built and nourished, no apparent distress Head: normocephalic, Atraumatic Eyes: normal inspection, EOMI Neck: supple, Trachea midline Respiratory/Chest: Normal breath sounds, CTA Cardiovascular: S1, S2, No murmur Abdomen/GI:Soft, Non tender, Bowel sounds present Extremities/Musculoskelatal:normal inspection, L LE swelling, discoloration improving Neurologic/Psych:AAOX3, grossly no focal neurological deficits Skin: normal color, warm Results & Data Vital Signs (Past 12 Hours) Vital Signs Temp Pulse Pulse Resp BP BP Pulse Ox 03/27/19 16:22 36.8 C 90 19 108/71 99 03/27/19 11:24 36.8 C 105 H 16 104/68 98 03/27/19 07:28 70 03/27/19 07:25 36.6 C 68 16 101/65 99 Laboratory Results Short CBC 03/27/19 Range/Units 05:44 Hgb 8.6 L (12.0-16.0) g/dL Hct 26.4 L (37-47) % BMP 03/27/19 05:44 Sodium 138 Potassium 3.6 Chloride 107 Carbon Dioxide 20 L BUN 19 H Creatinine 1.25 H Glucose 154 H Calcium 8.7 (1) DVT (deep venous thrombosis) Affected thrombotic vein of extremity: unspecified vein of extremity Chronicity: acute DVT location: lower extremity Laterality: left Qualified Code(s): I82.402 - Acute embolism and thrombosis of unspecified deep veins of left lower extremity
[2019-03-27 20:17] LABS: Hemoglobin 8.7 g/dL (12.0-16.0)
[2019-03-27] MEDS: MESALAMINE 4 GM/60 ML ENEMA PR SCH (21:23)
[2019-03-28] MEDS: metroNIDAZOLE 500 MG/100 ML BAG IV SCH ×4 (00:05→22:54)
[2019-03-28] MEDS: ACETAMINOPHEN 325 MG TAB PO PRN ×2 (01:24→11:13)
[2019-03-28] MEDS: LEVOTHYROXINE SODIUM 75 MCG TABLET PO SCH (05:46)
[2019-03-28] MEDS: cefTRIAXone SODIUM 1,000 MG in DEXTROSE 5% 50 ML IV SCH (05:53)
[2019-03-28 07:03] LABS: INR 1.1 (0.9-1.1); Prothrombin Time 11.4 Seconds (9.0-12.0)
[2019-03-28 07:12] LABS: Hematocrit (blood only) 28.3 % (37-47); Hemoglobin 9.4 g/dL (12.0-16.0)
[2019-03-28 07:25] LABS: Calcium 8.4 mg/dl (8.5-10.1); Creatinine Clr Calc Pharmacy 43.7 ml/min; Est GFR (African American) 54.8; Est GFR (Non-African American) 47.2
[2019-03-28 08:22] LABS: Partial Thromboplastin Time 55.5 Seconds (21.0-31.0)
[2019-03-28] MEDS: ONDANSETRON INJ 2 MG/ML 2 ML VIAL IV PRN (08:41)
[2019-03-28] MEDS: PANTOprazole 40 MG TAB PO SCH (08:46)
[2019-03-28] MEDS: LACTOBACILLUS ACIDOPHILUS (FLORANEX) TAB PO SCH ×3 (08:46→20:27)
[2019-03-28] MEDS: SERTRALINE HCL 50 MG TABLET PO SCH (08:46)
[2019-03-28] MEDS: DICYCLOMINE HCL 10 MG CAP PO SCH ×2 (08:47→20:27)
[2019-03-28] MEDS: CALCIUM 600MG + VIT D 400 IU TAB PO SCH (08:47)
[2019-03-28] MEDS: POTASSIUM CHLORIDE 20 MEQ TABCR PO SCH ×2 (08:47→20:28)
[2019-03-28] MEDS: BUDESONIDE EC 3 MG CAP PO SCH (08:47)
[2019-03-28] MEDS: CHOLECALCIFEROL 1,000 UNITS TAB PO SCH (08:47)
[2019-03-28] MEDS: ZINC SULFATE 220 MG CAPSULE PO SCH ×2 (08:47→20:28)
[2019-03-28] MEDS: INSULIN ASPART 100 UNITS/ML 3 ML PEN SC SCH ×4 (08:51→20:29)
[2019-03-28] MEDS: INSULIN GLARGINE SOLOSTAR 100 UNITS/ML 3 ML PEN SC SCH ×2 (08:51→20:29)
[2019-03-28] MEDS: HEPARIN SODIUM/DEXTROSE 25,000 UNITS/500 ML BAG IV SCH (11:08)
[2019-03-28] MEDS ORDERED: FUROSEMIDE 20 MG TAB PO ONE (11:53)
[2019-03-28] MEDS: WARFARIN SOD 7.5 MG TAB PO SCH (15:28)
--- NOTE | 2019-03-28 17:07 | Hospitalist Progress Note ---
Date of Service March 28, 2019 Assessment & Plan (1) DVT (deep venous thrombosis): Patient is a 63 yr female who presents with extensive deep venous thrombosis in the left lower extremity. Extensive DVT of Left Lower Extremity H/O DVT, PE S/P IVC filter H/O GI bleed due to Ulcerative colitis --Venous Doppler:Extensive left lower extremity deep venous thrombus. The appearance favors acute thrombus. Overall, increase in extent when compared to prior ultrasound of April 26, 2018. --Arterial Doppler:Technically limited exam due to the presence of extensive deep venous thrombosis. Arterial structures are patent with no evidence for significant stenotic process. Continue IV Heparin till INR is therapeutic Monitor CBC Appreciate Vascular Surgery Input--Thigh high compression therapy, No indication for vascular surgery, No signs of Cerulea Dolens Hb drop likely dilutional due to IV fluids Hb: 9.4 today Continue Coumadin Monitor PT/INR:1.1 today No bleeding issues today Hypokalemia: Likely due to GI loses Replace and monitor electrolytes Elevated lactic acid No clear etiology Normalized with IV fluids DM II: Last A1C: 6.2 Continue ISS, lantus Monitor BGs Hypothyroidism High TSH, normal Free T4 Continue Synthroid Needs repeat Thyroid function test as outpatient Ulcerative colitis. CT ABD as below Stool Studies for C.diff:Negative Continue budesonide Also on Entyvio Q8 weeks Dicyclomine PRN Appreciate GI Input Monitor CBC Hb minimal drop--Also partly due to IV fluids On ABx for coliti: DAY # 5/7 Added Rowasa 4gm [place] HS enema May need surgical intervention, possibly a subtotal colectomy if no improvement Plan for EUS as outpatient for pancreatic atrophy noted on CT scan Plan to transfer to tertiary care center if recurrence of bleeding No active bleeding Issues currently Improving Anemia of Chronic disease Monitor CBC Depression on Zoloft Acute kidney injury Metabolic acidosis--Likely due to diarrhea Baseline C: around 0.8 Cr: 1.49>>> 1.25>>1.21 Renal USD:No hydronephrosis. 1 cm indeterminate left renal lesion which appears similar to CT of June 28, 2018. Discontinued IV fluids Monitor renal function History of recurrent C. difficile S/P fecal transplant Stool studies: Negative for C. difficile Imodium PRN DVT Px: on IV heparin ggt, coumadin Code Status Full Code Disposition: PT/OT prior to discharge Social Service Consulted Plan to discharge when INR is therapeutic Imaging: CT ABD: 1. Findings are consistent with a mild nonspecific colitis of the left colon. This could be on an infectious, inflammatory, or ischemic basis and clinical correlation will be required. 2. There is extensive induration of the subcutaneous fat in the left flank which extends from the lower chest to the groin and left upper thigh. There is infiltration of the left lateral abdominal wall musculature which appears expanded and hypodense. There is also infiltration with trace surrounding fluid seen involving the deep soft tissues and musculature of the left thigh. No subcutaneous gas is seen. No organized fluid collection is clearly identified. Correlate clinically for evidence of infection/cellulitis or less likely large contusion. 3. Cholelithiasis. 4. Hepatic steatosis. 5. There is mild colonic diverticulosis without CT evidence of acute diverticulitis. 6. Additional findings as above. Subjective Patient is seen and examined at bedside Had an episode of emesis this morning Still has significant lower extremity swelling Diarrhea slowly improving No bleeding issues today Hb stable Denies any chest pain, SOB, dizziness, abd pain Review of Systems Review of Systems: All systems reviewed & are unremarkable except as noted in HPI & below Physical Exam Physical Exam: Physical Exam: Vitals signs as noted above General Appearance:Moderately built and nourished, no apparent distress Head: normocephalic, Atraumatic Eyes: normal inspection, EOMI Neck: supple, Trachea midline Respiratory/Chest: Normal breath sounds, CTA Cardiovascular: S1, S2, No murmur Abdomen/GI:Soft, Non tender, Bowel sounds present Extremities/Musculoskelatal:normal inspection, L LE swelling, discoloration improving Neurologic/Psych:AAOX3, grossly no focal neurological deficits Skin: normal color, warm Results & Data Vital Signs (Past 12 Hours) Vital Signs Temp Pulse Pulse Resp BP BP Pulse Ox 03/28/19 15:51 36.9 C 88 20 117/71 100 03/28/19 15:10 96 H 03/28/19 11:31 36.8 C 105 H 20 100/68 100 03/28/19 07:59 36.8 C 93 H 20 102/69 99 03/28/19 07:36 89 Laboratory Results Short CBC 03/27/19 03/28/19 Range/Units 19:54 06:15 Hgb 8.7 L 9.4 L (12.0-16.0) g/dL Hct 27.0 L 28.3 L (37-47) % BMP 03/28/19 06:15 Sodium 136 Potassium 4.0 Chloride 105 Carbon Dioxide 22 BUN 17 Creatinine 1.21 H Glucose 151 H Calcium 8.4 L (1) DVT (deep venous thrombosis) Affected thrombotic vein of extremity: unspecified vein of extremity Chronicity: acute DVT location: lower extremity Laterality: left Qualified Code(s): I82.402 - Acute embolism and thrombosis of unspecified deep veins of left lower extremity
[2019-03-28] MEDS: MESALAMINE 4 GM/60 ML ENEMA PR SCH (20:28)
[2019-03-29] MEDS: cefTRIAXone SODIUM 1,000 MG in DEXTROSE 5% 50 ML IV SCH (06:23)
[2019-03-29] MEDS: LEVOTHYROXINE SODIUM 75 MCG TABLET PO SCH (06:23)
[2019-03-29 07:23] LABS: Hematocrit (blood only) 26.7 % (37-47); Hemoglobin 8.5 g/dL (12.0-16.0)
[2019-03-29 07:56] LABS: Creatinine Clr Calc Pharmacy 49.1 ml/min; Est GFR (African American) 62.8; Est GFR (Non-African American) 54.2
[2019-03-29] MEDS: PANTOprazole 40 MG TAB PO SCH (08:16)
[2019-03-29] MEDS: CALCIUM 600MG + VIT D 400 IU TAB PO SCH (08:16)
[2019-03-29] MEDS: ZINC SULFATE 220 MG CAPSULE PO SCH ×2 (08:17→20:42)
[2019-03-29] MEDS: CHOLECALCIFEROL 1,000 UNITS TAB PO SCH (08:17)
[2019-03-29] MEDS: BUDESONIDE EC 3 MG CAP PO SCH (08:17)
[2019-03-29] MEDS: DICYCLOMINE HCL 10 MG CAP PO SCH ×2 (08:17→20:41)
[2019-03-29] MEDS: SERTRALINE HCL 50 MG TABLET PO SCH (08:17)
[2019-03-29] MEDS: POTASSIUM CHLORIDE 20 MEQ TABCR PO SCH ×2 (08:18→20:42)
[2019-03-29] MEDS: LACTOBACILLUS ACIDOPHILUS (FLORANEX) TAB PO SCH ×3 (08:18→20:41)
[2019-03-29] MEDS: metroNIDAZOLE 500 MG/100 ML BAG IV SCH ×3 (08:19→23:31)
[2019-03-29 08:22] LABS: INR 1.4 (0.9-1.1); Partial Thromboplastin Ratio 2.7; Prothrombin Time 14.3 Seconds (9.0-12.0)
[2019-03-29] MEDS: INSULIN ASPART 100 UNITS/ML 3 ML PEN SC SCH ×4 (08:22→20:47)
[2019-03-29] MEDS: INSULIN GLARGINE SOLOSTAR 100 UNITS/ML 3 ML PEN SC SCH ×2 (08:26→20:43)
[2019-03-29 08:59] LABS: Partial Thromboplastin Time 73.5 Seconds (21.0-31.0)
--- NOTE | 2019-03-29 11:25 | Hospitalist Progress Note ---
Date of Service March 29, 2019 Assessment & Plan (1) DVT (deep venous thrombosis): Patient is a 63 yr female who presents with extensive deep venous thrombosis in the left lower extremity. --Venous Doppler:Extensive left lower extremity deep venous thrombus. The appearance favors acute thrombus. Overall, increase in extent when compared to prior ultrasound of April 26, 2018. --Arterial Doppler:Technically limited exam due to the presence of extensive deep venous thrombosis. Arterial structures are patent with no evidence for significant stenotic process. History of recurrent venous thromboembolism H/O DVT, PE in past S/P IVC filter on 03/29/[address] Lu H/O GI bleed due to Ulcerative colitis Patient was started with IV heparin bridge and Coumadin, INR 1.4 today Patient has significant risk for recurrent GI bleed: Ulcerative colitis, not in remission We will DC IV heparin, Continue on Coumadin, monitor PT/INR, goal 23 Appreciate Vascular Surgery Input--Thigh high compression therapy, No indication for vascular surgery, (2) Anemia: Hb: 9.4 dropped to 8.5 today No evidence of active GI bleed, Small amount of red blood mixed with stool, possible secondary to hemorrhoids, Will follow H&H closely, repeat H&H ordered to be checked at 4 PM today IV heparin discontinued for risk of bleeding Continue Coumadin INR 1.4 (3) High serum lactate: Elevated lactic acid No clear etiology Normalized with IV fluids DM II: Last A1C: 6.2 Continue ISS, lantus Monitor BGs Hypothyroidism High TSH, normal Free T4 Continue Synthroid (4) Ulcerative (chronic) pancolitis with unspecified complications: History of ulcerative colitis CT ABD: 1. Findings are consistent with a mild nonspecific colitis of the left colon. This could be on an infectious, inflammatory, or ischemic basis and clinical correlation will be required. 2. There is extensive induration of the subcutaneous fat in the left flank which extends from the lower chest to the groin and left upper thigh. There is infiltration of the left lateral abdominal wall musculature which appears expanded and hypodense. There is also infiltration with trace surrounding fluid seen involving the deep soft tissues and musculature of the left thigh. No subcutaneous gas is seen. No organized fluid collection is clearly identified. Correlate clinically for evidence of infection/cellulitis or less likely large contusion. 3. Cholelithiasis. 4. Hepatic steatosis. 5. There is mild colonic diverticulosis without CT evidence of acute diverticulitis. Continue budesonide Also on Entyvio Q8 weeks Dicyclomine PRN Appreciate GI Input On ABx for coliti: DAY # 6/7 (IV Rocephin/metronidazole-will change metro nidazole to p.o. 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 difficile colitis: History of recurrent C. difficile Status post fecal transplant Stool Studies for C.diff:Negative Continue Imodium as needed (6) Acute renal failure superimposed on stage 3 chronic kidney disease: Acute kidney injury Likely secondary to GI loss/volume depletion Cr: Continues to improve 1.49>>> 1.25>>1.21>> 1.08 Renal USD:No hydronephrosis. 1 cm indeterminate left renal lesion which appears similar to CT of June 28, 2018. Avoid NSAIDs, contrast studies if possible CODE STATUS: Full code DVT prophylaxis: Coumadin Disposition: Patient lives in apartment, with elevator access, reports of significant decline in mobility for the last 1 month PT OT evaluation requested Patient will benefit with rehab Social service consulted for discharge planning Subjective Had one episode of blood tinged stool this morning, Patient denies of any dizzy spell or lightheadedness, No abdominal pain, No nausea vomiting, Reports of feeling fine, has some discomfort on the lower abdomen: Which is chronic Patient evaluated at bedside, Says that she had bright red blood tinged stool around 7 AM No further episode of bowel movement since then Complaint of shortness of breath, dyspnea on exertion, no orthopnea, no chest pain no cough Patient is afebrile, Review of Systems Review of Systems: All systems reviewed & are unremarkable except as noted in HPI & below Physical Exam Constitutional: WD/WN, vitals as above + obese; no acute distress Eyes: PERRL, conjunctivae normal, anicteric sclerae ENMT: external ear and nose normal, oropharynx normal Neck: trachea midline, no thyromegaly Respiratory: normal respiratory effort, lungs clear to auscultation Cardiovascular: Rate/Rhythm: regular rate, regular rhythm and + tachycardic Extremities: + edema (Bilateral 34 pitting edema: Chronic) Gastrointestinal (Abdomen): Inspection/Auscultation: + abdomen distended and normal bowel sounds Percussion/Palpation: abdomen soft; abdomen nontender Musculoskeletal: no cyanosis or clubbing, extremities motor strength 5/5 Skin: no rashes, warm and dry Neurologic: PERRL, EOMI, accommodation nl, no face palsy, no dysarthria Psychiatric: A+Ox3, euthymic affect Results & Data Vital Signs (Past 12 Hours) Vital Signs Temp Pulse Pulse Resp BP BP Pulse Ox 03/29/19 08:19 36.7 C 90 16 105/69 97 03/29/19 07:26 75 03/29/19 04:30 36.8 C 105 H 18 109/70 92 03/28/19 23:48 76 (1) DVT (deep venous thrombosis) Affected thrombotic vein of extremity: unspecified vein of extremity Chronicity: acute DVT location: lower extremity Laterality: left Qualified Code(s): I82.402 - Acute embolism and thrombosis of unspecified deep veins of left lower extremity (2) Anemia Anemia type: unspecified type Qualified Code(s): D64.9 - Anemia, unspecified
[2019-03-29 16:25] LABS: Hematocrit (blood only) 28.2 % (37-47)
[2019-03-29] MEDS: WARFARIN SOD 7.5 MG TAB PO SCH (16:28)
[2019-03-29] MEDS: MESALAMINE 4 GM/60 ML ENEMA PR SCH (20:41)
[2019-03-29] MEDS: ACETAMINOPHEN 325 MG TAB PO PRN (23:30)
[2019-03-30] MEDS: LEVOTHYROXINE SODIUM 75 MCG TABLET PO SCH (06:10)
[2019-03-30] MEDS: cefTRIAXone SODIUM 1,000 MG in DEXTROSE 5% 50 ML IV SCH (06:10)
[2019-03-30 06:37] LABS: Hematocrit (blood only) 26.6 % (37-47); Hemoglobin 8.4 g/dL (12.0-16.0)
[2019-03-30 06:40] LABS: INR 1.9 (0.9-1.1); Prothrombin Time 18.4 Seconds (9.0-12.0)
[2019-03-30 07:08] LABS: Creatinine Clr Calc Pharmacy 49.1 ml/min; Est GFR (African American) 62.8; Est GFR (Non-African American) 54.2
[2019-03-30] MEDS: PANTOprazole 40 MG TAB PO SCH (08:20)
[2019-03-30] MEDS: DICYCLOMINE HCL 10 MG CAP PO SCH ×2 (08:21→20:15)
[2019-03-30] MEDS: SERTRALINE HCL 50 MG TABLET PO SCH (08:21)
[2019-03-30] MEDS: CALCIUM 600MG + VIT D 400 IU TAB PO SCH (08:21)
[2019-03-30] MEDS: LACTOBACILLUS ACIDOPHILUS (FLORANEX) TAB PO SCH ×3 (08:22→20:15)
[2019-03-30] MEDS: ZINC SULFATE 220 MG CAPSULE PO SCH ×2 (08:22→20:15)
[2019-03-30] MEDS: CHOLECALCIFEROL 1,000 UNITS TAB PO SCH (08:22)
[2019-03-30] MEDS: POTASSIUM CHLORIDE 20 MEQ TABCR PO SCH ×2 (08:23→20:14)
[2019-03-30] MEDS: metroNIDAZOLE 500 MG/100 ML BAG IV SCH ×2 (08:24→15:04)
[2019-03-30] MEDS: BUDESONIDE EC 3 MG CAP PO SCH (08:25)
[2019-03-30] MEDS: INSULIN ASPART 100 UNITS/ML 3 ML PEN SC SCH ×4 (08:27→20:18)
[2019-03-30] MEDS: INSULIN GLARGINE SOLOSTAR 100 UNITS/ML 3 ML PEN SC SCH ×2 (08:27→20:18)
[2019-03-30] MEDS: ACETAMINOPHEN 325 MG TAB PO PRN ×2 (12:52→20:13)
[2019-03-30] MEDS ORDERED: WARFARIN SOD 5 MG TAB PO SCH (16:00)
--- NOTE | 2019-03-30 17:20 | Hospitalist Progress Note ---
Date of Service March 30, 2019 Assessment & Plan (1) DVT (deep venous thrombosis): Patient is a 63 yr female who presents with extensive deep venous thrombosis in the left lower extremity. --Venous Doppler:Extensive left lower extremity deep venous thrombus. The appearance favors acute thrombus. Overall, increase in extent when compared to prior ultrasound of April 26, 2018. --Arterial Doppler:Technically limited exam due to the presence of extensive deep venous thrombosis. Arterial structures are patent with no evidence for significant stenotic process. History of recurrent venous thromboembolism H/O DVT, PE in past S/P IVC filter on 03/29/[address] Lu H/O GI bleed due to Ulcerative colitis IV heparin bridge therapy D//braeden for significant bleeding risk on coumadin INR 1.9 today Appreciate Vascular Surgery Input--Thigh high compression therapy, No indication for vascular surgery, (2) Anemia: H&H remains stable so far ( hx of chronic anemia ) Small amount of red blood mixed with stool, possible secondary to hemorrhoids, IV heparin discontinued for risk of bleeding Continue Coumadin INR 1.9 (3) High serum lactate: Elevated lactic acid No clear etiology Normalized with IV fluids DM II: Last A1C: 6.2 Continue ISS, lantus Monitor BGs Hypothyroidism High TSH, normal Free T4 Continue Synthroid (4) Ulcerative (chronic) pancolitis with unspecified complications: History of ulcerative colitis CT ABD: 1. Findings are consistent with a mild nonspecific colitis of the left colon. This could be on an infectious, inflammatory, or ischemic basis and clinical correlation will be required. 2. There is extensive induration of the subcutaneous fat in the left flank which extends from the lower chest to the groin and left upper thigh. There is infiltration of the left lateral abdominal wall musculature which appears expanded and hypodense. There is also infiltration with trace surrounding fluid seen involving the deep soft tissues and musculature of the left thigh. No subcutaneous gas is seen. No organized fluid collection is clearly identified. Correlate clinically for evidence of infection/cellulitis or less likely large contusion. 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 1 cm indeterminate left renal lesion which appears similar to CT of June 28, 2018. Avoid NSAIDs, contrast studies if possible CODE STATUS: Full code DVT prophylaxis: Coumadin Disposition: Patient lives in apartment, with elevator access, reports of significant decline in mobility for the last 1 month pt will need rehab pt is medically stable to transition to rehab when insurance auth is available Subjective had small blood tinged ( red blood ) stool this morning no further episode since no fever or chills no dizzy spell or lightheadedness Physical Exam Constitutional: WD/WN, vitals as above + obese; no acute distress Eyes: PERRL, conjunctivae normal, anicteric sclerae ENMT: external ear and nose normal, oropharynx normal Neck: trachea midline, no thyromegaly Respiratory: normal respiratory effort, lungs clear to auscultation Cardiovascular: Rate/Rhythm: regular rate, regular rhythm and + tachycardic Extremities: + edema (Bilateral 34 pitting edema: Chronic) Gastrointestinal (Abdomen): Inspection/Auscultation: + abdomen distended and n ormal bowel sounds Percussion/Palpation: abdomen soft; abdomen nontender Musculoskeletal: no cyanosis or clubbing, extremities motor strength 5/5 Skin: no rashes, warm and dry Neurologic: PERRL, EOMI, accommodation nl, no face palsy, no dysarthria Psychiatric: A+Ox3, euthymic affect Results & Data Vital Signs (Past 12 Hours) Vital Signs Temp Pulse Pulse Pulse Resp BP BP 03/30/19 16:22 36.8 C 83 18 131/79 03/30/19 15:42 36.7 C 74 18 102/68 03/30/19 15:40 86 03/30/19 12:00 37.0 C 113 H 18 91/59 L 03/30/19 07:51 36.8 C 67 18 112/71 03/30/19 05:37 36.6 C 78 18 118/69 Pulse Ox 03/30/19 16:22 100 03/30/19 15:42 100 03/30/19 15:40 03/30/19 12:00 99 03/30/19 07:51 100 03/30/19 05:37 99 (1) DVT (deep venous thrombosis) Affected thrombotic vein of extremity: unspecified vein of extremity Chronicity: acute DVT location: lower extremity Laterality: left Qualified Code(s): I82.402 - Acute embolism and thrombosis of unspecified deep veins of left lower extremity (2) Anemia Anemia type: unspecified type Qualified Code(s): D64.9 - Anemia, unspecified
[2019-03-30] MEDS: MESALAMINE 4 GM/60 ML ENEMA PR SCH (20:15)
[2019-03-31] MEDS: LEVOTHYROXINE SODIUM 75 MCG TABLET PO SCH (06:02)
[2019-03-31 06:51] LABS: INR 3.1 (0.9-1.1)
[2019-03-31 07:15] LABS: Creatinine Clr Calc Pharmacy 48.2 ml/min; Est GFR (African American) 61.4
[2019-03-31] MEDS: DICYCLOMINE HCL 10 MG CAP PO SCH ×2 (09:14→20:43)
[2019-03-31] MEDS: PANTOprazole 40 MG TAB PO SCH (09:14)
[2019-03-31] MEDS: ZINC SULFATE 220 MG CAPSULE PO SCH ×2 (09:14→20:43)
[2019-03-31] MEDS: CALCIUM 600MG + VIT D 400 IU TAB PO SCH (09:14)
[2019-03-31] MEDS: CHOLECALCIFEROL 1,000 UNITS TAB PO SCH (09:14)
[2019-03-31] MEDS: SERTRALINE HCL 50 MG TABLET PO SCH (09:15)
[2019-03-31] MEDS: BUDESONIDE EC 3 MG CAP PO SCH (09:15)
[2019-03-31] MEDS: LACTOBACILLUS ACIDOPHILUS (FLORANEX) TAB PO SCH ×3 (09:15→20:43)
[2019-03-31] MEDS: POTASSIUM CHLORIDE 20 MEQ TABCR PO SCH ×2 (09:16→20:43)
[2019-03-31] MEDS: INSULIN GLARGINE SOLOSTAR 100 UNITS/ML 3 ML PEN SC SCH ×2 (09:19→20:41)
[2019-03-31] MEDS: INSULIN ASPART 100 UNITS/ML 3 ML PEN SC SCH ×4 (09:19→20:41)
[2019-03-31] MEDS: ACETAMINOPHEN 325 MG TAB PO PRN (15:15)
--- NOTE | 2019-03-31 16:03 | Hospitalist Progress Note ---
Date of Service March 31, 2019 Assessment & Plan (1) DVT (deep venous thrombosis): Patient is a 63 yr female who presents with extensive deep venous thrombosis in the left lower extremity. --Venous Doppler:Extensive left lower extremity deep venous thrombus. The appearance favors acute thrombus. Overall, increase in extent when compared to prior ultrasound of April 26, 2018. --Arterial Doppler:Technically limited exam due to the presence of extensive deep venous thrombosis. Arterial structures are patent with no evidence for significant stenotic process. History of recurrent venous thromboembolism H/O DVT, PE in past S/P IVC filter on 03/29/[address] Lu H/O GI bleed due to Ulcerative colitis IV heparin bridge therapy D//braeden for significant bleeding risk Has been on Coumadin: INR 3.1 today, no evidence of bleeding, no blood tinged bowel movement today Hold Coumadin, Check PT/INR Resume Coumadin when INR less than 2.5 Given patient's history of recurrent bleed, it would be preferable to keep INR on the lower end 2-2.5 Appreciate Vascular Surgery Input--Thigh high compression therapy, No indication for vascular surgery, (2) Anemia: H&H remains stable so far ( hx of chronic anemia ) No further episode of GI bleed, no blood in stool (3) High serum lactate: Elevated lactic acid No clear etiology Normalized with IV fluids DM II: Last A1C: 6.2 Continue ISS, lantus Monitor BGs Hypothyroidism High TSH, normal Free T4 Continue Synthroid (4) Ulcerative (chronic) pancolitis with unspecified complications: History of ulcerative colitis CT ABD: 1. Findings are consistent with a mild nonspecific colitis of the left colon. This could be on an infectious, inflammatory, or ischemic basis and clinical correlation will be required. 2. There is extensive induration of the subcutaneous fat in the left flank which extends from the lower chest to the groin and left upper thigh. There is infiltration of the left lateral abdominal wall musculature which appears expanded and hypodense. There is also infiltration with trace surrounding fluid seen involving the deep soft tissues and musculature of the left thigh. No subcutaneous gas is seen. No organized fluid collection is clearly identified. Correlate clinically for evidence of infection/cellulitis or less likely large contusion. -pt reports for recent fall /hitting against the furniture a week back possible cause the contusion /change noted in CT abdomen no overlying skin change /no eccymosis or bruise pt is on budesonide for U Colitis Also on Entyvio Q8 weeks Dicyclomine PRN -does not have any abdominal pain Appreciate GI Input On ABx for possible Colitis : DAY # 7 /7 (IV Rocephin/metronidazole-) Abx D.braeden Added Rowasa 4gm [place] HS enema May need surgical intervention, possibly a subtotal colectomy if no improvement Plan for EUS as outpatient for pancreatic atrophy noted on CT scan (5) C. 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 1 cm indeterminate left renal lesion which appears similar to CT of June 28, 2018. Avoid NSAIDs, contrast studies if possible CODE STATUS: Full code DVT prophylaxis: Coumadin Disposition: Patient lives in apartment, with elevator access, reports of significant decline in mobility for the last 1 month pt will need rehab pt is medically stable to transition to rehab when insurance auth is available Referral made for [facility] [place], possible transfer to rehab on Wednesday04/03/2019 Subjective Doing well, no further episodes of blood in stool, no nausea vomiting, no pain Feels fine, No shortness of breath, no dyspnea on exertion no fever Review of Systems Review of Systems: All systems reviewed & are unremarkable except as noted in HPI & below Physical Exam Constitutional: WD/WN, vitals as above + obese; no acute distress Eyes: PERRL, conjunctivae normal, anicteric sclerae ENMT: external ear and nose normal, oropharynx normal Neck: trachea midline, no thyromegaly Respiratory: normal respiratory effort, lungs clear to auscultation Cardiovascular: Rate/Rhythm: regular rate, regular rhythm and + tachycardic Extremities: + edema (Bilateral 34 pitting edema: Chronic) Gastrointestinal (Abdomen): Inspection/Auscultation: + abdomen distended and normal bowel sounds Percussion/Palpation: abdomen soft; abdomen nontender Musculoskeletal: no cyanosis or clubbing, extremities motor strength 5/5 Skin: no rashes, warm and dry Neurologic: PERRL, EOMI, accommodation nl, no face palsy, no dysarthria Psychiatric: A+Ox3, euthymic affect Results & Data Vital Signs (Past 12 Hours) Vital Signs Temp Pulse Pulse Resp BP BP Pulse Ox 03/31/19 15:00 37.2 C 113 H 20 94/62 L 98 03/31/19 07:00 36.7 C 91 H 20 114/73 93 (1) DVT (deep venous thrombosis) Affected thrombotic vein of extremity: unspecified vein of extremity Chronicity: acute DVT location: lower extremity Laterality: left Qualified Code(s): I82.402 - Acute embolism and thrombosis of unspecified deep veins of left lower extremity (2) Anemia Anemia type: unspecified type Qualified Code(s): D64.9 - Anemia, unspecified
[2019-03-31] MEDS: MESALAMINE 4 GM/60 ML ENEMA PR SCH ×2 (20:44→21:41)
[2019-04-01 05:51] LABS: Hematocrit (blood only) 26.1 % (37-47); Hemoglobin 8.2 g/dL (12.0-16.0)
[2019-04-01 06:18] LABS: INR 3.2 (0.9-1.1); Prothrombin Time 30.3 Seconds (9.0-12.0)
[2019-04-01] MEDS: LEVOTHYROXINE SODIUM 75 MCG TABLET PO SCH (06:48)
[2019-04-01] MEDS: LACTOBACILLUS ACIDOPHILUS (FLORANEX) TAB PO SCH ×3 (08:20→20:30)
[2019-04-01] MEDS: FUROSEMIDE 20 MG TAB PO SCH (08:26)
[2019-04-01] MEDS: CHOLECALCIFEROL 1,000 UNITS TAB PO SCH (08:26)
[2019-04-01] MEDS: DICYCLOMINE HCL 10 MG CAP PO SCH ×2 (08:27→20:30)
[2019-04-01] MEDS: PANTOprazole 40 MG TAB PO SCH (08:27)
[2019-04-01] MEDS: SERTRALINE HCL 50 MG TABLET PO SCH (08:27)
[2019-04-01] MEDS: ZINC SULFATE 220 MG CAPSULE PO SCH ×2 (08:28→20:30)
[2019-04-01] MEDS: BUDESONIDE EC 3 MG CAP PO SCH (08:28)
[2019-04-01] MEDS: POTASSIUM CHLORIDE 20 MEQ TABCR PO SCH ×2 (08:29→21:23)
[2019-04-01] MEDS: CALCIUM 600MG + VIT D 400 IU TAB PO SCH (08:30)
[2019-04-01] MEDS: INSULIN ASPART 100 UNITS/ML 3 ML PEN SC SCH ×4 (08:35→20:31)
[2019-04-01] MEDS: INSULIN GLARGINE SOLOSTAR 100 UNITS/ML 3 ML PEN SC SCH ×2 (08:35→20:30)
--- NOTE | 2019-04-01 15:59 | Hospitalist Progress Note ---
Date of Service April 01, 2019 Assessment & Plan (1) DVT (deep venous thrombosis): Patient is a 63 yr female who presents with extensive deep venous thrombosis in the left lower extremity. --Venous Doppler:Extensive left lower extremity deep venous thrombus. The appearance favors acute thrombus. Overall, increase in extent when compared to prior ultrasound of April 26, 2018. --Arterial Doppler:Technically limited exam due to the presence of extensive deep venous thrombosis. Arterial structures are patent with no evidence for significant stenotic process. History of recurrent venous thromboembolism H/O DVT, PE in past S/P IVC filter on 03/29/[address] Lu H/O GI bleed due to Ulcerative colitis IV heparin bridge therapy D//braeden for significant bleeding risk Has been on Coumadin: INE > 3 , no evidence of GI bleeding cont to Hold Coumadin, Check PT/INR Resume Coumadin when INR less than 2.5 Given patient's history of recurrent bleed, it would be preferable to keep INR on the lower end 2-2.5 Appreciate Vascular Surgery Input--Thigh high compression therapy, No indication for vascular surgery, (2) Anemia: H&H remains stable so far ( hx of chronic anemia ) No further episode of GI bleed, no blood in stool (3) High serum lactate: Elevated lactic acid No clear etiology Normalized with IV fluids DM II: Last A1C: 6.2 Continue ISS, lantus Monitor BGs Hypothyroidism High TSH, normal Free T4 Continue Synthroid (4) Ulcerative (chronic) pancolitis with unspecified complications: History of ulcerative colitis CT ABD: 1. Findings are consistent with a mild nonspecific colitis of the left colon. This could be on an infectious, inflammatory, or ischemic basis and clinical correlation will be required. 2. There is extensive induration of the subcutaneous fat in the left flank which extends from the lower chest to the groin and left upper thigh. There is infiltration of the left lateral abdominal wall musculature which appears expanded and hypodense. There is also infiltration with trace surrounding fluid seen involving the deep soft tissues and musculature of the left thigh. No subcutaneous gas is seen. No organized fluid collection is clearly identified. Correlate clinically for evidence of infection/cellulitis or less likely large contusion. -pt reports for recent fall /hitting against the furniture a week back possible cause the contusion /change noted in CT abdomen no overlying skin change /no eccymosis or bruise pt is on budesonide for U Colitis Also on Entyvio Q8 weeks Dicyclomine PRN -does not have any abdominal pain Appreciate GI Input completed ABx for possible Colitis : DAY # 7 /7 (IV Rocephin/metronidazole-) Abx D.braeden Added Rowasa 4gm [place] HS enema May need surgical intervention, possibly a subtotal colectomy if no improvement Plan for EUS as outpatient for pancreatic atrophy noted on CT scan (5) C. 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 1 cm indeterminate left renal lesion which appears similar to CT of June 28, 2018. Avoid NSAIDs, contrast studies if possible CODE STATUS: Full code DVT prophylaxis: INR theraputic Disposition: Patient lives in apartment, with elevator access, reports of significant decline in mobility for the last 1 month pt will need rehab pt is medically stable to transition to rehab when insurance auth is available Referral made for [facility] [place], possible transfer to rehab on Wednesday04/03/2019 Subjective Doing well, no further episodes of blood in stool, no nausea vomiting, no pain Feels fine, No shortness of breath, no dyspnea on exertion no fever Physical Exam Constitutional: WD/WN, vitals as above + obese; no acute distress Eyes: PERRL, conjunctivae normal, anicteric sclerae ENMT: external ear and nose normal, oropharynx normal Neck: trachea midline, no thyromegaly Respiratory: normal respiratory effort, lungs clear to auscultation Cardiovascular: Rate/Rhythm: regular rate, regular rhythm and + tachycardic Extremities: + edema (Bilateral 34 pitting edema: Chronic) Gastrointestinal (Abdomen): Inspection/Auscultation: + abdomen distended and normal bowel sounds Percussion/Palpation: abdomen soft; abdomen nontender Musculoskeletal: no cyanosis or clubbing, extremities motor strength 5/5 Skin: no rashes, warm and dry Neurologic: PERRL, EOMI, accommodation nl, no face palsy, no dysarthria Psychiatric: A+Ox3, euthymic affect Results & Data Vital Signs (Past 12 Hours) Vital Signs Temp Pulse Resp BP Pulse Ox 04/01/19 15:01 37.6 C H 114 H 16 95/60 L 98 04/01/19 06:52 36.8 C 94 H 16 111/73 99 (1) DVT (deep venous thrombosis) Affected thrombotic vein of extremity: unspecified vein of extremity Chronicity: acute DVT location: lower extremity Laterality: left Qualified Code(s): I82.402 - Acute embolism and thrombosis of unspecified deep veins of left lower extremity (2) Anemia Anemia type: unspecified type Qualified Code(s): D64.9 - Anemia, unspecified
[2019-04-01] MEDS ORDERED: Nursing to Pharmacy Communication ONE (16:47)
[2019-04-01] MEDS: MESALAMINE 4 GM/60 ML ENEMA PR SCH (21:23)
[2019-04-02 04:53] LABS: INR 2.7 (0.9-1.1); Prothrombin Time 25.7 Seconds (9.0-12.0)
[2019-04-02] MEDS: LEVOTHYROXINE SODIUM 75 MCG TABLET PO SCH (04:55)
[2019-04-02 05:12] LABS: Creatinine Clr Calc Pharmacy 59.5 ml/min; Est GFR (African American) 79.4; Est GFR (Non-African American) 68.5
[2019-04-02] MEDS: CHOLECALCIFEROL 1,000 UNITS TAB PO SCH (07:37)
[2019-04-02] MEDS: LACTOBACILLUS ACIDOPHILUS (FLORANEX) TAB PO SCH ×3 (07:37→20:47)
[2019-04-02] MEDS: ZINC SULFATE 220 MG CAPSULE PO SCH ×2 (07:37→20:48)
[2019-04-02] MEDS: DICYCLOMINE HCL 10 MG CAP PO SCH ×2 (07:37→20:47)
[2019-04-02] MEDS: PANTOprazole 40 MG TAB PO SCH (07:38)
[2019-04-02] MEDS: BUDESONIDE EC 3 MG CAP PO SCH (07:39)
[2019-04-02] MEDS: CALCIUM 600MG + VIT D 400 IU TAB PO SCH (07:39)
[2019-04-02] MEDS: FUROSEMIDE 20 MG TAB PO SCH (07:39)
[2019-04-02] MEDS: SERTRALINE HCL 50 MG TABLET PO SCH (07:39)
[2019-04-02] MEDS: INSULIN ASPART 100 UNITS/ML 3 ML PEN SC SCH ×4 (08:44→20:49)
[2019-04-02] MEDS: INSULIN GLARGINE SOLOSTAR 100 UNITS/ML 3 ML PEN SC SCH ×2 (08:45→20:50)
[2019-04-02] MEDS: POTASSIUM CHLORIDE 20 MEQ TABCR PO SCH ×2 (13:04→20:48)
--- NOTE | 2019-04-02 14:25 | Hospitalist Progress Note ---
Date of Service April 02, 2019 Assessment & Plan (1) DVT (deep venous thrombosis): Patient is a 63 yr female who presents with extensive deep venous thrombosis in the left lower extremity. --Venous Doppler:Extensive left lower extremity deep venous thrombus. The appearance favors acute thrombus. Overall, increase in extent when compared to prior ultrasound of April 26, 2018. --Arterial Doppler:Technically limited exam due to the presence of extensive deep venous thrombosis. Arterial structures are patent with no evidence for significant stenotic process. History of recurrent venous thromboembolism H/O DVT, PE in past S/P IVC filter on 03/29/[address] Lu H/O GI bleed due to Ulcerative colitis IV heparin bridge therapy D//braeden for significant bleeding risk Coumadin was kept on hold as INR was more than 3 Repeat INR today shows 2.7 Coumadin is resumed with lower dose 2.5 mg daily Repeat PT/INR in a.m. Given patient's history of recurrent bleed, it would be preferable to keep INR on the lower end 2-2.5 Appreciate Vascular Surgery Input--Thigh high compression therapy, No indication for vascular surgery, Thigh-high DREW hose ordered, patient was unable to tolerate (2) Anemia: H&H remains stable so far ( hx of chronic anemia ) No further episode of GI bleed, no blood in stool (3) High serum lactate: Elevated lactic acid No clear etiology Normalized with IV fluids DM II: Last A1C: 6.2 Continue ISS, lantus Monitor BGs Hypothyroidism High TSH, normal Free T4 Continue Synthroid (4) Ulcerative (chronic) pancolitis with unspecified complications: History of ulcerative colitis CT ABD: 1. Findings are consistent with a mild nonspecific colitis of the left colon. This could be on an infectious, inflammatory, or ischemic basis and clinical correlation will be required. 2. There is extensive induration of the subcutaneous fat in the left flank which extends from the lower chest to the groin and left upper thigh. There is infiltration of the left lateral abdominal wall musculature which appears expanded and hypodense. There is also infiltration with trace surrounding fluid seen involving the deep soft tissues and musculature of the left thigh. No subcutaneous gas is seen. No organized fluid collection is clearly identified. Correlate clinically for evidence of infection/cellulitis or less likely large contusion. 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 1 cm indeterminate left renal lesion which appears similar to CT of June 28, 2018. Avoid NSAIDs, contrast studies if possible CODE STATUS: Full code DVT prophylaxis: INR theraputic Disposition: Patient lives in apartment, with elevator access, reports of significant decline in mobility for the last 1 month pt will need rehab pt is medically stable to transition to rehab when insurance auth is available Referral made for [facility] [place], possible transfer to rehab on Wednesday04/03/2019 Subjective Doing well, no further episodes of blood in stool, no nausea vomiting, no pain Feels fine, No shortness of breath, no dyspnea on exertion no fever Has persistent bilateral lower extremity edema Physical Exam Constitutional: WD/WN, vitals as above + obese; no acute distress Eyes: PERRL, conjunctivae normal, anicteric sclerae ENMT: external ear and nose normal, oropharynx normal Neck: trachea midline, no thyromegaly Respiratory: normal respiratory effort, lungs clear to auscultation Cardiovascular: Rate/Rhythm: regular rate, regular rhythm and + tachycardic Extremities: + edema (Bilateral 34 pitting edema: Chronic) Gastrointestinal (Abdomen): Inspection/Auscultation: + abdomen distended and normal bowel sounds Percussion/Palpation: abdomen soft; abdomen nontender Musculoskeletal: no cyanosis or clubbing, extremities motor strength 5/5 Skin: no rashes, warm and dry Neurologic: PERRL, EOMI, accommodation nl, no face palsy, no dysarthria Psychiatric: A+Ox3, euthymic affect Results & Data Vital Signs (Past 12 Hours) Vital Signs Temp Pulse Resp BP Pulse Ox 04/02/19 07:11 36.9 C 95 H 16 98/63 L 97 (1) DVT (deep venous thrombosis) Affected thrombotic vein of extremity: unspecified vein of extremity [employer] nicity: acute DVT location: lower extremity Laterality: left Qualified Code(s): I82.402 - Acute embolism and thrombosis of unspecified deep veins of left lower extremity (2) Anemia Anemia type: unspecified type Qualified Code(s): D64.9 - Anemia, unspecified
[2019-04-02] MEDS ORDERED: WARFARIN SOD 2.5 MG TAB PO SCH (16:00)
[2019-04-02] MEDS: MESALAMINE 4 GM/60 ML ENEMA PR SCH (20:51)
[2019-04-03] MEDS: LEVOTHYROXINE SODIUM 75 MCG TABLET PO SCH (06:13)
[2019-04-03 06:52] LABS: Hemoglobin 8.6 g/dL (12.0-16.0)
[2019-04-03 07:00] LABS: INR 2.3 (0.9-1.1); Prothrombin Time 22.2 Seconds (9.0-12.0)
[2019-04-03 07:22] LABS: Creatinine Clr Calc Pharmacy 55.8 ml/min; Est GFR (African American) 73.4; Est GFR (Non-African American) 63.3
[2019-04-03] MEDS: LACTOBACILLUS ACIDOPHILUS (FLORANEX) TAB PO SCH ×2 (07:43→12:57)
[2019-04-03] MEDS: CALCIUM 600MG + VIT D 400 IU TAB PO SCH (07:44)
[2019-04-03] MEDS: FUROSEMIDE 20 MG TAB PO SCH (07:44)
[2019-04-03] MEDS: PANTOprazole 40 MG TAB PO SCH (07:44)
[2019-04-03] MEDS: DICYCLOMINE HCL 10 MG CAP PO SCH (07:44)
[2019-04-03] MEDS: CHOLECALCIFEROL 1,000 UNITS TAB PO SCH (07:44)
[2019-04-03] MEDS: ZINC SULFATE 220 MG CAPSULE PO SCH (07:44)
[2019-04-03] MEDS: POTASSIUM CHLORIDE 20 MEQ TABCR PO SCH (07:45)
[2019-04-03] MEDS: BUDESONIDE EC 3 MG CAP PO SCH (07:45)
[2019-04-03] MEDS: SERTRALINE HCL 50 MG TABLET PO SCH (07:50)
[2019-04-03] MEDS: INSULIN GLARGINE SOLOSTAR 100 UNITS/ML 3 ML PEN SC SCH (08:55)
[2019-04-03] MEDS: INSULIN ASPART 100 UNITS/ML 3 ML PEN SC SCH ×2 (08:55→12:56)
--- NOTE | 2019-04-03 10:02 | Hospitalist Progress Note ---
Date of Service April 03, 2019 Assessment & Plan (1) DVT (deep venous thrombosis): Patient is a 63 yr female who presents with extensive deep venous thrombosis in the left lower extremity. --Venous Doppler:Extensive left lower extremity deep venous thrombus. The appearance favors acute thrombus. Overall, increase in extent when compared to prior ultrasound of April 26, 2018. --Arterial Doppler:Technically limited exam due to the presence of extensive deep venous thrombosis. Arterial structures are patent with no evidence for significant stenotic process. History of recurrent venous thromboembolism H/O DVT, PE in past S/P IVC filter on 03/29/[address] Lu H/O GI bleed due to Ulcerative colitis On low-dose Coumadin 2.5 mg daily, INR therapeutic Given patient's history of recurrent bleed, it would be preferable to keep INR on the lower end <3 Appreciate Vascular Surgery Input--Thigh high compression therapy, No indication for vascular surgery, Thigh-high DREW hose ordered, patient was unable to tolerate (2) Anemia: H&H remains stable so far ( hx of chronic anemia ) No further episode of GI bleed, no blood in stool (3) High serum lactate: Elevated lactic acid No clear etiology -no evidence of infection, sepsis, vitals remained stable Normalized with IV fluids DM II: Last A1C: 6.2 Continue ISS, lantus Monitor BGs Hypothyroidism High TSH, normal Free T4-sick euthyroid symptoms Continue Synthroid (4) Ulcerative (chronic) pancolitis with unspecified complications: History of ulcerative colitis CT ABD: 1. Findings are consistent with a mild nonspecific colitis of the left colon. This could be on an infectious, inflammatory, or ischemic basis and clinical correlation will be required. 2. There is extensive induration of the subcutaneous fat in the left flank which extends from the lower chest to the groin and left upper thigh. There is infiltration of the left lateral abdominal wall musculature which appears expanded and hypodense. There is also infiltration with trace surrounding fluid seen involving the deep soft tissues and musculature of the left thigh. No subcutaneous gas is seen. No organized fluid collection is clearly identified. Correlate clinically for evidence of infection/cellulitis or less likely large contusion. 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 1 cm indeterminate left renal lesion which appears similar to CT of June 28, 2018. Avoid NSAIDs, contrast studies if possible CODE STATUS: Full code DVT prophylaxis: INR therapeutic Disposition: Patient lives in apartment, with elevator access, reports of significant decline in mobility for the last 1 month pt will need rehab pt is medically stable to transition to rehab when insurance auth is available Referral made for [facility], Patient is medically stable to be transferred to rehab today Subjective Patient reports of feeling fine, no dark stool, No complaint of abdominal pain, no nausea vomiting Has been afebrile Waiting for rehab placement Review of Systems Review of Systems: All systems reviewed & are unremarkable except as noted in HPI & below Physical Exam Constitutional: WD/WN, vitals as above + obese; no acute distress Eyes: PERRL, conjunctivae normal, anicteric sclerae ENMT: external ear and nose normal, oropharynx normal Neck: trachea midline, no thyromegaly Respiratory: normal respiratory effort, lungs clear to auscultation Cardiovascular: Rate/Rhythm: regular rate, regular rhythm and + tachycardic Extremities: + edema (Bilateral 34 pitting edema: Chronic) Gastrointestinal (Abdomen): Inspection/Auscultation: + abdomen distended and normal bowel sounds Percussion/Palpation: abdomen soft; abdomen nontender Musculoskeletal: no cyanosis or clubbing, extremities motor strength 5/5 Skin: no rashes, warm and dry Neurologic: PERRL, EOMI, accommodation nl, no face palsy, no dysarthria Psychiatric: A+Ox3, euthymic affect Results & Data Vital Signs (Past 12 Hours) Vital Signs Temp Pulse Resp BP Pulse Ox 04/03/19 07:35 36.8 C 92 H 18 109/69 100 04/02/19 23:06 37.1 C 91 H 18 104/68 97 (1) DVT (deep venous thrombosis) Affected thrombotic vein of extremity: unspecified vein of extremity Chronicity: acute DVT location: lower extremity Laterality: left Qualified Code(s): I82.402 - Acute embolism and thrombosis of unspecified deep veins of left lower extremity (2) Anemia Anemia type: unspecified type Qualified Code(s): D64.9 - Anemia, unspecified
--- NOTE | 2019-04-03 10:30 | Discharge Summary ---
Date of Service April 03, 2019 Admission HPI Per Admitting Provider DICTATED BY: Tanner Castillo MD DATE OF ADMISSION: 03/22/2019 CHIEF COMPLAINT: Left lower extremity extensive DVT. HISTORY OF PRESENT ILLNESS: A 63-year-old female with past medical history significant for hypothyroidism, history of pulmonary embolism, history of DVT, status post IVC filter, not on Coumadin because of history of lower GI bleeds from ulcerative colitis, history of type 2 diabetes, hyperlipidemia, morbid obesity, history of ductal carcinoma in situ of breast, hypertension, history of multiple C. difficile diarrhea and pancolitis and she had a long course of p.o. vancomycin for C. diff, status post FMT, for ulcerative colitis, she failed mesalamine and Humira, and currently on Entyvio. Having abdominal pain and blood in the stools and she saw GI last week of february and they did a CAT scan that is showing the same colitis but in a less severe form and they thought question of failure of Entyvio, so they resumed the mesalamine again and short course of budesonide and plan to change to Stelara as a last attempt and eventually if no improvement may require subtotal colectomy. On last admission, she was transferred to for colectomy, but then she did fine with bowel rest and tube feeding. She is not on any anticoagulation secondary to GI bleeds, comes here because of last night around 10:00 p.m., she suddenly noticed left lower extremity swelling and purplish discoloration. She lives alone, then she called her sister who brought her to the hospital. Her imaging studies showed extensive occlusive thrombus in the left common femoral down to the left peroneal vein and one of the two anterior tibial veins. Has some uneasy feeling in the leg. Earlier, she felt some shortness of breath. Currently, saturating okay on room air. About a week ago, she had an episode of fever. She has ongoing diarrhea. She still has some blood in the stools but thought it could be from hemorrhoids. Denies any chest pain. No headache, no blurred vision, no sore throat, no difficulty swallowing. Normal bladder movements. No hematuria or dysuria. Otherwise, she ambulates okay and she cooks her own food and she drives car. Her sister lives about 3 miles from her. Currently afebrile and hemodynamically stable. Principal Diagnosis Lower extremity DVT Anemia-of chronic disease History of ulcerative colitis Ambulatory dysfunction Discharge Exam Constitutional WD/WN, vitals as above + obese; no acute distress Eyes PERRL, conjunctivae normal, anicteric sclerae ENMT external ear and nose normal, oropharynx normal Neck trachea midline, no thyromegaly Respiratory normal respiratory effort, lungs clear to auscultation Cardiovascular Rate/Rhythm: regular rate, regular rhythm and + tachycardic Extremities: + edema (Bilateral 34 pitting edema: Chronic) Gastrointestinal (Abdomen) Inspection/Auscultation: + abdomen distended and normal bowel sounds Percussion/Palpation: abdomen soft; abdomen nontender Musculoskeletal no cyanosis or clubbing, extremities motor strength 5/5 Skin no rashes, warm and dry Neurologic PERRL, EOMI, accommodation nl, no face palsy, no dysarthria Psychiatric A+Ox3, euthymic affect Discharge Data Allergies Allergy/AdvReac Type Severity Reaction Status Date / Time aztreonam [From Azactam] Allergy Intermediate flushed Verified 03/22/19 02:19 /itching dorzolamide Allergy Unknown EYE LID Verified 03/22/19 02:19 SWELLING latanoprost Allergy Unknown EYE LID Verified 03/22/19 02:19 SWELLING Penicillins Allergy Unknown Unknown Verified 03/22/19 02:19 thimerosal Allergy Unknown Unknown Verified 03/22/19 02:19 timolol Allergy Unknown EYE LID Verified 03/22/19 02:19 SWELLING Consultations 03/22/19 02:38 ED Decision to Admit Stat 03/22/19 06:19 Consult Case Management - Discharge Planning Routine Consult Vascular Surgery Routine 03/22/19 08:00 Consult Gastroenterology Routine Ordered Studies 03/22/19 00:05 US arterial duplex LE LT Urgent US venous doppler LE LT Urgent 03/23/19 08:18 US renal/blad retro comp Routine 03/24/19 04:54 CT abd pelvis wo con Urgent Hospital Course (1) DVT (deep venous thrombosis): Patient is a 63 yr female who presents with extensive deep venous thrombosis in the left lower extremity. --Venous Doppler:Extensive left lower extremity deep venous thrombus. The appearance favors acute thrombus. Overall, increase in extent when compared to prior ultrasound of April 26, 2018. --Arterial Doppler:Technically limited exam due to the presence of extensive deep venous thrombosis. Arterial structures are patent with no evidence for significant stenotic process. History of recurrent venous thromboembolism H/O DVT, PE in past S/P IVC filter on 03/29/[address] Lu H/O GI bleed due to Ulcerative colitis On low-dose Coumadin 2.5 mg daily, INR therapeutic Given patient's history of recurrent bleed, it would be preferable to keep INR on the lower end <3 Appreciate Vascular Surgery Input--Thigh high compression therapy, No indication for vascular surgery, Thigh-high DREW hose ordered, patient was unable to tolerate (2) Anemia: H&H remains stable so far ( hx of chronic anemia ) No further episode of GI bleed, no blood in stool (3) High serum lactate: Elevated lactic acid No clear etiology -no evidence of infection, sepsis, vitals remained stable Normalized with IV fluids DM II: Last A1C: 6.2 Continue ISS, lantus Monitor BGs Hypothyroidism High TSH, normal Free T4-sick euthyroid symptoms Continue Synthroid (4) Ulcerative (chronic) pancolitis with unspecified complications: History of ulcerative colitis CT ABD: 1. Findings are consistent with a mild nonspecific colitis of the left colon. This could be on an infectious, inflammatory, or ischemic basis and clinical correlation will be required. 2. There is extensive induration of the subcutaneous fat in the left flank which extends from the lower chest to the groin and left upper thigh. There is infiltration of the left lateral abdominal wall musculature which appears expanded and hypodense. There is also infiltration with trace surrounding fluid seen involving the deep soft tissues and musculature of the left thigh. No subcutaneous gas is seen. No organized fluid collection is clearly identified. Correlate clinically for evidence of infection/cellulitis or less likely large contusion. -pt reports for recent fall /hitting against the furniture a week back possible cause the contusion /change noted in CT abdomen no overlying skin change /no eccymosis or bruise pt is on budesonide for U Colitis Also on Entyvio Q8 weeks Dicyclomine PRN -does not have any abdominal pain Appreciate GI Input completed ABx for possible Colitis : DAY # 7 /7 (IV Rocephin/metronidazole-) Abx D.braeden Added Rowasa 4gm CO HS enema May need surgical intervention, possibly a subtotal colectomy if no improvement Plan for EUS as outpatient for pancreatic atrophy noted on CT scan (5) C. 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 1 cm indeterminate left renal lesion which appears similar to CT of June 28, 2018. Avoid NSAIDs, contrast studies if possible CODE STATUS: Full code DVT prophylaxis: INR therapeutic Disposition: Patient lives in apartment, with elevator access, reports of significant decline in mobility for the last 1 month Accepted at [facility] for rehab Patient is transferred to [facility] today Referral made for [facility], Patient is medically stable to be transferred to rehab today Total Time Total Time Spent Total Time Spent (In Minutes): Approximately 40 minutes Total Time Includes: Examination of the Patient, Discharge Planning and Medication Reconciliation Discharge Plan Discharge Items Patient Disposition: Transfer Inpatient Rehab Fac Reason For Visit: LEFT LOWER EXTREMITY SWELLING Discharge Diagnosis: LEFT LOWER EXTREMITY DVT Anemia Ulcerative colitis Ambulatory dysfunction Activity: As commented below Activity Comment: Continue physical therapy occupational therapy at rehab Non-emergency contact: Primary Care Provider Call non-emergency contact if: you have any medication questions Follow-up/Referrals: Isaias Templeton MD [Primary Care Provider] - Diet: Carb Consistent or DM2 and Heart Healthy Addtl Attending Provider Instructions: Follow-up with family physician after discharge from rehab Pending Studies at Discharge: Yes Studies:: Lab work: Complete blood Count (CBC) /comprehensive metabolic panel-in 1 week PT/INR: In 3 days Continue to adjust Coumadin dose, and PT/INR monitoring as per protocol Will need endoscopic ultrasound of pancreas as an outpatient for evaluation of pancreatic atrophy noted in CT abdomen pelvis Follow-up with [facility] to schedule appointment Stand-Alone Forms: My [facility] Skilled Items Patient informed of condition?: Yes DNR: No Discharge Level of Care: Skilled Communicable Disease: No Discharge Prognosis: Stable Lines: None Urinary Catheter: No Medications and DC Order Prescriptions: New potassium chloride [Klor-Con M20] 20 mEq Tablet,Er Particles/Crystals 10 meq PO BID 30 Days Qty: 30 RF: 0 warfarin [Coumadin] 2.5 mg Tablet 2.5 mg PO DAILY 30 Days Qty: 30 RF: 0 Continued mesalamine 1,000 mg Suppository 1 g CO HS RF: 0 budesonide 3 mg Capsule,Delayed,Extend.Release 3 mg PO DIRECTED RF: 0 furosemide [Lasix] 20 mg Tablet 20 mg PO DAILY PRN (Reason: Edema) RF: 0 Entyvio 300 mg Recon Soln 300 mg IV WK RF: 0 Basaglar KwikPen U-100 Insulin 100 unit/mL (3 mL) Insulin Pen 17 unit SUBCUT DAILY RF: 0 zinc sulfate [Zinc-220] 220 (50) mg Capsule 220 mg PO BID RF: 0 Probiotic Acidophilus Biobeads 12.9 mg (2 billion cell) Tablet,Delayed Release (Dr/Ec) 1 tab PO TID RF: 0 sertraline 50 mg Tablet 50 mg PO DAILY RF: 0 fluocinonide 0.05 % Ointment 1 applic TOPICAL BID RF: 0 levothyroxine 75 mcg Tablet 75 mcg PO DAILY RF: 0 dicyclomine 10 mg Capsule 10 mg PO TID PRN (Reason: cramping/diarrhea) RF: 0 cholecalciferol (vitamin D3) [Vitamin D3] 1,000 unit Tablet 1,000 unit PO DAILY RF: 0 calcium citrate-vitamin D3 [Citracal + D Petites] 200 mg calcium -250 unit Tablet 1 tab PO DAILY RF: 0 Discontinued aspirin 325 mg Tablet 325 mg PO DAILY RF: 0 potassium chloride [Klor-Con M20] 20 mEq Tablet,Er Particles/Crystals 20 meq PO BID RF: 0 pantoprazole [Protonix] 40 mg Tablet,Delayed Release (Dr/Ec) 40 mg PO DAILY RF: 0 Discharge Orders: Discharge Order (Routine); Ordered 04/03/19 Ordered By: Beth Hester Admission Data Admit Date/Time: 03/22/19 05:13 Attending Provider: Beth Hester Admit Provider: Tanner Castillo Primary Care Provider: Isaias Templeton Other Providers: [facility] ; Tanner Castillo ; Reilly Lu ; Caesar Chow
[2019-04-05] MEDS ORDERED: BUDESONIDE EC 3 MG CAP PO SCH (09:00)
[2019-04-05 22:46] LABS: B2 Glycoprotein IgA <9 SAU (<=20); B2 Glycoprotein IgG <9 SGU (<=20); B2 Glycoprotein IgM <9 SMU (<=20); Phosphatidylserine IgG <10 U/mL (<10); Phosphatidylserine IgM <25 U/mL (<25)
[2019-04-06] MEDS ORDERED: BUDESONIDE EC 3 MG CAP PO SCH (09:00)
== END 2019-04-03 15:30 | DRG 300 ==
LOC: ED 23:50 → SUATTDRO 03-22 05:13 → 2N 03-22 05:13 → 4W 03-31 21:41
DX: E87.2 Acidosis; I12.9 Hypertensive chronic kidney disease with stage 1 through stage 4 chronic kidney disease, or unspecified chronic kidney disease; E87.6 Hypokalemia; N39.0 Urinary tract infection, site not specified; I82.432 Acute embolism and thrombosis of left popliteal vein; E66.01 Morbid (severe) obesity due to excess calories; Z68.39 Body mass index [BMI] 39.0-39.9, adult; Z86.711 Personal history of pulmonary embolism; Z79.82 Long term (current) use of aspirin; D63.8 Anemia in other chronic diseases classified elsewhere; E11.22 Type 2 diabetes mellitus with diabetic chronic kidney disease; I82.812 Embolism and thrombosis of superficial veins of left lower extremity; Z79.4 Long term (current) use of insulin; E78.5 Hyperlipidemia, unspecified; K51.90 Ulcerative colitis, unspecified, without complications; E03.9 Hypothyroidism, unspecified; K21.9 Gastro-esophageal reflux disease without esophagitis; Z86.718 Personal history of other venous thrombosis and embolism; N17.9 Acute kidney failure, unspecified; I82.412 Acute embolism and thrombosis of left femoral vein; N18.3 Chronic kidney disease, stage 3 (moderate); Z79.899 Other long term (current) drug therapy; E11.65 Type 2 diabetes mellitus with hyperglycemia

== ENCOUNTER 2020-01-01 15:49 | Inpatient (IN) ==
[2020-01-01] MEDS ORDERED: SODIUM CHLORIDE 0.9% 500 ML IV SCH (17:30)
[2020-01-01 18:11] LABS: INR 2.7 (0.9-1.1); Prothrombin Time 26.8 Seconds (9.0-12.0)
--- NOTE | 2020-01-01 18:13 | Emergency Department Note ---
History of Present Illness General Chief Complaint: Syncope Stated Complaint: FALL HIT FACE, PASSED OUT Time Seen by Provider: 01/01/20 17:25 Source: patient Mode of arrival: wheelchair Limitations: no limitations History of Present Illness Provider Complaint: + loss of consciousness Onset (ago): less than 1 hour(s) -: + second(s) Description of event: no tonic-clonic movements, no post-event confusion, no focal shaking, no incontinence, no stopped breathing and no CPR performed Prodromal symptoms: + lightheaded Context: + during exertion Injuries sustained associated with event: + face Current symptoms: + none HPI narrative: This is a 64-year-old female who presents to the ED with a chief complaint of a syncopal episode. The patient states that she went down the elevator to get her mail. After she got back on the elevator and as it was going up, she began feeling funny. The patient states that she walked out of the elevator and fell forward onto her face. She states that she passed out briefly. She suffered an abrasion to the bridge of the nose. The patient does report that she is on Coumadin for history of DVTs. The patient states that she feels she feels fine now. She does periodically see blood in her stools. She states that sometimes it is black and sometimes is red. She states that she has noticed blood in her stools for the past couple of days that was red. Her doctors are aware of this, according to the patient. She states that they put her on iron for anemia about a month and a half ago. Home Medicaitons Home Medications Medication Instructions Recorded Confirmed Type calcium citrate-vitamin D3 1 tab PO QAM 05/12/18 01/01/20 History [Citracal-D3 Petites] cholecalciferol (vitamin D3) 1,000 unit PO QAM 05/12/18 01/01/20 History [Vitamin D3] levothyroxine 75 mcg PO QAM 05/12/18 01/01/20 History Entyvio 300 mg IV DIRECTED 03/22/19 01/01/20 History Probiotic Acidophilus Biobeads 1 tab PO TIDM 03/22/19 01/01/20 History fluocinonide 1 applic TOPICAL BID 03/22/19 01/01/20 History furosemide [Lasix] 20 mg PO QAM PRN 03/22/19 01/01/20 History sertraline [Zoloft] 50 mg PO QAM 03/22/19 01/01/20 History anastrozole 1 mg PO QAM 07/21/19 01/01/20 History atorvastatin 40 mg PO HS 07/21/19 01/01/20 History colestipol 1 g PO TID 07/21/19 01/01/20 History pantoprazole 40 mg PO QAM 07/21/19 01/01/20 History potassium chloride [Klor-Con M20] 20 meq PO BID 07/21/19 01/01/20 History warfarin 2 - 4 mg PO DIRECTED 07/21/19 01/01/20 History insulin glargine [Lantus Solostar 22 unit SUBCUT QAM 01/01/20 01/01/20 History U-100 Insulin] trazodone 50 mg PO HS PRN 01/01/20 01/01/20 History triamcinolone acetonide 1 applic TOPICAL BID 01/01/20 01/01/20 History Allergies Allergy/AdvReac Type Severity Reaction Status Date / Time aztreonam [From Azactam] Allergy Intermediate flushed Verified 01/01/20 18:41 /itching dorzolamide Allergy Unknown EYE LID Verified 01/01/20 18:41 SWELLING latanoprost Allergy Unknown EYE LID Verified 01/01/20 18:41 SWELLING Penicillins Allergy Unknown Unknown Verified 01/01/20 18:41 thimerosal Allergy Unknown Unknown Verified 01/01/20 18:41 timolol Allergy Unknown EYE LID Verified 01/01/20 18:41 SWELLING Past Med/Surg History Medical History Acute hyponatremia (Acute) Acute kidney injury (Acute) Anemia (Acute) Breast cancer, right (Chronic) 2012--SX & RADIATION, NO CHEMO C. difficile diarrhea Clostridium difficile diarrhea (Acute) Colitis (Acute) Crohns disease (Chronic) Depression Diabetes mellitus type 2, controlled (Chronic) Diverticulitis large intestine (Acute) DVT (deep venous thrombosis) DVT (deep venous thrombosis) (Chronic) BILT LEGS 03/2018 DVT prophylaxis GERD (gastroesophageal reflux disease) (Chronic) GI bleed (Chronic) History of pulmonary embolus (PE) (Chronic) "dx in 2001, unprovoked" History of recent steroid use (Chronic) History of recent steroid use History of venous thromboembolism HLD (hyperlipidemia) (Chronic) HTN (hypertension) (Chronic) Hypertension (Chronic) Hypoglycemia associated with diabetes Hypokalemia Hypomagnesemia (Acute) Hypomagnesemia (Acute) Hypothyroidism (Chronic) 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) "Abnormal right breast mammogram Biopsy-positive for DCIS Status post lumpectomy with no residual tumor stage pTis NXMX Estrogen receptor positive, progesterone receptor positive Status post completion of radiation therapy 02/22/2013 received 3850 cGy utilizing accelerated partial breast treatment " Leukocytosis (leucocytosis) (Acute) Obesity (BMI 30-39.9) (Chronic) Pancolitis (Acute) Pulmonary embolism Sepsis (Resolved) 03/2018 Severe sepsis SIRS (systemic inflammatory response syndrome) T2DM (type 2 diabetes mellitus) (Chronic) Ulcerative (chronic) pancolitis with unspecified complications (Chronic) UTI (urinary tract infection) (Acute) Surgical History H/O breast biopsy (Chronic) 2012--RIGHT MALIGNANT H/O lumpectomy History of appendectomy (Resolved) History of colonoscopy (Chronic) History of lumpectomy of right breast (Resolved) "+ HERBIE ER/TX + in 10/2012 s/p RT" History of tonsillectomy and adenoidectomy (Chronic) Hx of appendectomy S/P insertion of IVC (inferior vena caval) filter (Chronic) 03/29/[address] BUSTAMANTE Status post glaucoma surgery (Chronic) BILT Family History Mother Family history of diabetes mellitus Heart disease Father Family history of diabetes mellitus Heart disease Sister Family history of diabetes mellitus Grandmother Family history of diabetes mellitus PATERNAL Uterine cancer Sister Crohn's disease Social History Preferred Language: Yi Communication Ability: Effective Visual Impairment: No Limitations Hearing Ability: Normal Soil Expert Required: No Beliefs That Will Affect Care: Adventist Adventist Beliefs: Anabaptist marital status: Single Current Living Situation: Alone Current Living Situation Comment: alone Feels Safe at Home: Yes Smoking Status: Never smoker Second Hand Exposure: No ; Hx Alcohol Use: No Hx Substance Use: No Review of Systems A total of 10 systems reviewed and were otherwise negative Physical Exam Vital Signs: Vital Signs - 24 hr 01/01/20 16:00 01/01/20 17:30 01/01/20 17:32 Temperature 37.1 C Temperature Source Oral Pulse Rate 104 H 107 H 82 Pulse Rate from Sp O2 Sensor 87 82 Pulse Rhythm Regular Pulse Strength Normal Respiratory Rate 20 22 18 Respiratory Effort / Characteristics Non-Labored Sponta neous Respiratory Depth Normal Respiratory Patter n Regular Blood Pressure 123/79 119/56 L Blood Pressure Becki n 93 87 Blood Pressure Pos ition Sitting Pulse Oximetry 100 97 100 Oxygen Delivery Me thod Room Air Sepsis Recent Feve r Within 48 Hours No Sepsis New/Unexpla ined Change in Men pippa Status No Sepsis Action Take n by Nursing No Action Required 01/01/20 17:49 01/01/20 17:51 Temperature Temperature Source Pulse Rate Pulse Rate from Sp O2 Sensor Pulse Rhythm Pulse Strength Respiratory Rate Respiratory Effort / Characteristics Respiratory Depth Respiratory Patter n Blood Pressure Blood Pressure Becki n Blood Pressure Pos ition Pulse Oximetry Oxygen Delivery Me thod Room Air Room Air Sepsis Recent Feve r Within 48 Hours Sepsis New/Unexpla ined Change in Men pippa Status Sepsis Action Take n by Nursing Physical Exam: CONSTITUTIONAL/VITAL SIGNS: Reviewed / noted above. GENERAL: Non-toxic in appearance. INTEGUMENTARY: Warm, dry, and [place]. HEAD: Normocephalic. EYES: without scleral icterus or trauma. ENT/OROPHARYNX: clear and moist. The patient has an abrasion to the bridge of the nose. There is some mild bleeding. This is controlled with pressure. LYMPHADENOPATHY/NECK: Is supple without lymphadenopathy or meningismus. RESPIRATORY: Lungs clear and equal. CARDIOVASCULAR: Regular rate and rhythm. GI/ABDOMEN: Soft and nontender. No organomegaly or pulsatile mass. No rebound or guarding. Normal bowel sounds. EXTREMITIES: Warm and well perfused. BACK: No CVA tenderness. NEUROLOGICAL: Intact without focal deficits. PSYCHIATRIC: normal affect. MUSCULOSKELETAL: Normally developed with good muscle tone. TRIAGE NURSING DOCUMENTATION REVIEWED. Course Administered Medications Discontinued Medications Sodium Chloride (Nss) 500 mls @ 999 mls/hr IV .Q31M RACHEL Stop: 01/01/20 18:00 Last Admin: 01/01/20 17:52 Dose: 999 mls/hr Documented by: [id number] Medical Decision Making Differential Diagnosis Differential includes acute cardiac dysrhythmia, microinfarction, CVA, TIA, dehydration, anemia, electrolyte disturbance, seizure, trauma, intracranial bleeding, acute vascular catastrophe, thoracic aortic dissection, PE, abdominal aortic aneurysm rupture,close head injury, intracranial bleed, facial trauma, cervical spine trauma, chest and thoracic trauma, abdominal and intra-abdominal trauma, spine neurologic trauma, extremity trauma. Medical Records Attestation: I reviewed the patient's medical records. Home Medications Current Medication List: was personally reviewed by me Laboratory Data Attestation: I reviewed the patient's lab results. Result diagrams: 01/01/20 17:45 01/01/20 17:45 Lab Results 01/01/20 01/01/20 01/01/20 Range/Units 17:45 17:45 17:45 WBC 11.94 H (4.8-10.8) K/uL RBC 3.45 L (4.2-5.4) M/uL Hgb 6.5 L* (12.0-16.0) g/dL Hct 23.3 L (37-47) % MCV 67.5 L (80-100) fL MCH 18.8 L (25-34) pg MCHC 27.9 L (32-36) g/dL RDW Std Deviation 41.0 (36.4-46.3) fL RDW Coeff of Conchis 16.7 H (11.5-14.5) % Plt Count 507 H (130-400) K/uL MPV 9.6 (7.4-10.4) fL Immature Gran % (Auto) 0.5 % Neut % (Auto) 80.4 % Lymph % (Auto) 9.0 % Colbert % (Auto) 6.0 % Eos % (Auto) 3.9 % Baso % (Auto) 0.2 % Neut # (Auto) 9.60 H (1.4-6.5) K/uL Lymph # (Auto) 1.08 L (1.2-3.4) K/uL Colbert # (Auto) 0.72 H (0.11-0.59) K/uL Eos # (Auto) 0.46 (0-0.5) K/uL Baso # (Auto) 0.02 (0-0.2) K/uL Immature Gran # (Auto) 0.06 H (0.00-0.02) K/uL Hypochromasia Present PT 26.8 H (9.0-12.0) Seconds INR 2.7 H (0.9-1.1) Sodium 138 (136-145) mmol/L Potassium 3.4 L (3.5-5.1) mmol/L Chloride 107 (98-107) mmol/L Carbon Dioxide 23 (21-32) mmol/L Anion Gap 8.0 (3-11) BUN 11 (7-18) mg/dl Creatinine 1.02 (0.6-1.2) mg/dl Est Cr Clr Drug Dosing 46.5 ml/min Est GFR ( Amer) 66.8 Est GFR (Non-Af Amer) 57.7 BUN/Creatinine Ratio 11.2 (10-20) Glucose 193 H (70-99) mg/dl Calcium 9.1 (8.5-10.1) mg/dl Total Bilirubin 0.5 (0.2-1) mg/dl AST 9 L (15-37) U/L ALT 7 L (12-78) U/L Alkaline Phosphatase 134 H (45-117) U/L Total Creatine Kinase 45 (26-192) U/L Total Protein 6.9 (6.4-8.2) gm/dl Albumin 2.8 L (3.4-5.0) gm/dl Globulin 4.1 H (2.5-4.0) gm/dl Albumin/Globulin Ratio 0.7 L (0.9-2) Blood Type Antibody Screen Crossmatch 01/01/20 Range/Units 17:55 WBC (4.8-10.8) K/uL RBC (4.2-5.4) M/uL Hgb (12.0-16.0) g/dL Hct (37-47) % MCV (80-100) fL MCH (25-34) pg MCHC (32-36) g/dL RDW Std Deviation (36.4-46.3) fL RDW Coeff of Conchis (11.5-14.5) % Plt Count (130-400) K/uL MPV (7.4-10.4) fL Immature Gran % (Auto) % Neut % (Auto) % Lymph % (Auto) % Colbert % (Auto) % Eos % (Auto) % Baso % (Auto) % Neut # (Auto) (1.4-6.5) K/uL Lymph # (Auto) (1.2-3.4) K/uL Colbert # (Auto) (0.11-0.59) K/uL Eos # (Auto) (0-0.5) K/uL Baso # (Auto) (0-0.2) K/uL Immature Gran # (Auto) (0.00-0.02) K/uL Hypochromasia PT (9.0-12.0) Seconds INR (0.9-1.1) Sodium (136-145) mmol/L Potassium (3.5-5.1) mmol/L Chloride (98-107) mmol/L Carbon Dioxide (21-32) mmol/L Anion Gap (3-11) BUN (7-18) mg/dl Creatinine (0.6-1.2) mg/dl Est Cr Clr Drug Dosing ml/min Est GFR ( Amer) Est GFR (Non-Af Amer) BUN/Creatinine Ratio (10-20) Glucose (70-99) mg/dl Calcium (8.5-10.1) mg/dl Total Bilirubin (0.2-1) mg/dl AST (15-37) U/L ALT (12-78) U/L Alkaline Phosphatase (45-117) U/L Total Creatine Kinase (26-192) U/L Total Protein (6.4-8.2) gm/dl Albumin (3.4-5.0) gm/dl Globulin (2.5-4.0) gm/dl Albumin/Globulin Ratio (0.9-2) Blood Type AB Negative Antibody Screen NEGATIVE Crossmatch See Detail Imaging Data Radiologist's Impression: Chest x-ray: Negative for acute disease CT scan of brain: Negative for acute trauma ECG Data Attestation: I personally reviewed and interpreted this ECG as follows: Indication: syncope Rate (beats per minute): 78 Rhythm: normal sinus Findings: no PVC, no ST elevation and no prolonged QT Blood Pressure Blood Pressure Findings: Normal blood pressure MDM Narrative This is a 64-year-old female who presents to the ED with a chief complaint of a syncopal episode. The patient states that she went down the elevator to get her mail. After she got back on the elevator and as it was going up, she began feeling funny. The patient states that she walked out of the elevator and fell forward onto her face. She states that she passed out briefly. She suffered an abrasion to the bridge of the nose. The patient does report that she is on Coumadin for history of DVTs. The patient states that she feels she feels fine now. She does periodically see blood in her stools. She states that sometimes it is black and sometimes is red. She states that she has noticed blood in her stools for the past couple of days that was red. Her doctors are aware of this, according to the patient. She states that they put her on iron for anemia about a month and a half ago. The patient vital signs are stable. Her physical exam reveals an abrasion to the nose. The patient's blood work reveals a hemoglobin of 6.5. INR is 2.7. A CT scan of the brain once is negative for acute disease. Chest x-ray is also negative for acute disease. The patient was told the results of the test. Her vital signs are currently stable. She was ordered a unit of packed RBCs. She will be seen by the hospitalist for further inpatient evaluation and care. The patient at this time does not appear to be having active rectal bleeding. Impression & Plan Acute GI bleeding, Anemia Critical Care Time Critical Care Time: Yes Total Critical Care Time: 35 I have personally spent 35 minutes of critical care time in the direct management of this patient. This includes bedside care, interpretation of diagnostic studies, and testing, discussion with consultants, patient, and family members, and other required patient management activities. This 35 minutes is in excess of all separately billable procedures. Discharge Plan Visit Data Chief Complaint: Syncope Stated Complaint: FALL HIT FACE, PASSED OUT ED Provider: Noam Napoles Discharge Problem: Acute GI bleeding, Anemia Patient Disposition: Admitted As Inpatient Forms Stand Alone Forms: My [facility] Prescriptions Prescriptions: No Action furosemide [Lasix] 20 mg Tablet 20 mg PO QAM PRN (Reason: Edema) RF: 0 Entyvio 300 mg Recon Soln 300 mg IV DIRECTED RF: 0 Probiotic Acidophilus Biobeads 12.9 mg (2 billion cell) Tablet,Delayed Release (Dr/Ec) 1 tab PO TIDM RF: 0 sertraline [Zoloft] 50 mg Tablet 50 mg PO QAM RF: 0 fluocinonide 0.05 % Ointment 1 applic TOPICAL BID RF: 0 levothyroxine 75 mcg Tablet 75 mcg PO QAM RF: 0 cholecalciferol (vitamin D3) [Vitamin D3] 1,000 unit Tablet 1,000 unit PO QAM RF: 0 calcium citrate-vitamin D3 [Citracal-D3 Petites] 200 mg calcium -250 unit Tablet 1 tab PO QAM RF: 0 warfarin 4 mg tablet 2 - 4 mg PO DIRECTED RF: 0 pantoprazole 40 mg tablet,delayed release (DR/EC) 40 mg PO QAM RF: 0 atorvastatin 40 mg tablet 40 mg PO HS RF: 0 anastrozole 1 mg Tablet 1 mg PO QAM RF: 0 potassium chloride [Klor-Con M20] 20 mEq Tablet,Er Particles/Crystals 20 meq PO BID RF: 0 colestipol 1 gram Tablet 1 g PO TID RF: 0 trazodone 50 mg tablet 50 mg PO HS PRN (Reason: Sleep) RF: 0 triamcinolone acetonide 0.1 % cream 1 applic TOPICAL BID RF: 0 Lantus Solostar U-100 Insulin 100 unit/mL (3 mL) insulin pen 22 unit SUBCUT QAM RF: 0 Referrals Referrals: Isaias Templeton MD [Primary Care Provider] - Discharge Problem: Anemia Qualifiers: Anemia type: iron deficiency
[2020-01-01 18:19] LABS: Albumin Level 2.8 gm/dl (3.4-5.0); BUN Creatinine Ratio 11.2 (10-20); Calcium 9.1 mg/dl (8.5-10.1); Creatinine Clr Calc Pharmacy 46.5 ml/min; Est GFR (African American) 66.8; Est GFR (Non-African American) 57.7; Hematocrit (blood only) 23.3 % (37-47); Hemoglobin 6.5 g/dL (12.0-16.0); Mean Corpuscular Hemoglobin 18.8 pg (25-34); Mean Corpuscular Hgb Conc 27.9 g/dL (32-36); Mean Corpuscular Volume 67.5 fL (80-100); Mean Platelet Volume 9.6 fL (7.4-10.4); Platelet Count 507 K/uL (130-400); Potassium 3.4 mmol/L (3.5-5.1); RDW Coefficient of Variation 16.7 % (11.5-14.5); Red Blood Count 3.45 M/uL (4.2-5.4); White Blood Count 11.94 K/uL (4.8-10.8)
--- NOTE | 2020-01-01 18:21 | CT Scan Report ---
CT head/brain wo con CT DOSE: 537.48 mGy.cm HISTORY: Trauma syncope TECHNIQUE: Multiaxial CT images of the head were performed without the use of intravenous contrast. A dose lowering technique was utilized adhering to the principles of ALARA. Comparison: 05/28/2018 Findings: The paranasal sinuses and mastoid air cells are clear. The calvarium and skull base are int act. The ventricles and sulci are within normal limits. There is no mass, hematoma, midline shift, or acute infarct. Impression: No acute intracranial abnormality. ACT 112: Negative or not required by law. The above report was generated using voice recognition software. It may contain grammatical, syntax or spelling errors. Electronically signed by: Catrachito Nevarez M.D. 01/01/2020 6:20 PM
[2020-01-01 18:23] LABS: Basophils # (auto) 0.02 K/uL (0-0.2); Basophils % (auto) 0.2 %; Eosinophils # (auto) 0.46 K/uL (0-0.5); Eosinophils % (auto) 3.9 %; Hypochromasia Present; Immature Granulocytes # (auto) 0.06 K/uL (0.00-0.02); Immature Granulocytes % (auto) 0.5 %; Lymphocytes # (auto) 1.08 K/uL (1.2-3.4); Monocytes # (auto) 0.72 K/uL (0.11-0.59); Neutrophils % (auto) 80.4 %
[2020-01-01] MEDS ORDERED: SODIUM CHLORIDE 0.9% 250 ML IV PRN ×3 (18:23→21:36)
[2020-01-01 18:24] LABS: Albumin Globulin Ratio 0.7 (0.9-2); Bilirubin,Total 0.5 mg/dl (0.2-1); Globulin 4.1 gm/dl (2.5-4.0); Total Protein 6.9 gm/dl (6.4-8.2)
--- NOTE | 2020-01-01 18:30 | XRay Report ---
XR chest 1V portable CLINICAL HISTORY: syncope dyspnea COMPARISON STUDY: 03/22/2019 FINDINGS: The bones soft tissues and hemidiaphragms are normal. The cardiomediastinal silhouette is n ormal. The lungs are clear. The pulmonary vasculature is normal. IMPRESSION: Negative chest. ACT 112: Negative or not required by law. The above report was generated using voice recognition software. It may contain grammatical, syntax or spelling errors. Electronically signed by: Catrachito Nevarez M.D. 01/01/2020 6:29 PM
--- NOTE | 2020-01-01 20:36 | History & Physical Report ---
Date of Service January 01, 2020 Assessment & Plan (1) Syncope and collapse: (2) Acute on chronic blood loss anemia: (3) Symptomatic anemia: (4) BRBPR (bright red blood per rectum): (5) GI bleed: (6) Ulcerative (chronic) pancolitis with unspecified complications: (7) Diarrhea: Patient with complicated GI history including pancolitis with ulcerative colitis and chronic GI bleeding. She does have chronic anemia, but this is acutely worse than baseline. Likely from chronic GI loss. Syncopal episode likely due to symptomatic anemia, but uncertain. She received 1 unit PRBCs in the ED. Will transfuse 1 more unit as well. H&H Q6h Consult GI Chronic diarrhea on and off with history of C. Diff. Check C Diff with continued bleeding and new onset syncope Currently receives Entyvio as an outpatient. Will await GI opinion for any changes. Monitor on Tele. Check Orthostatic vitals. NPO for now pending improvement in bowels. Start IV Protonix 40 mg BID Check Echo, carotid US with syncope (8) Hypokalemia: Patient is chronically on Potassium supplement. Potassium upon admission was 3.4 Replace potassium with PO Klor-Con 40 mEq x 1 Nss w/20 mEq K+ overnight Recheck in AM (9) T2DM (type 2 diabetes mellitus): Last A1C as an outpatient was 9.3 on 10/12/19. Recheck A1C in AM Insulin protocol (10) HTN (hypertension): BP controlled. Continue to monitor closely anemia and bleeding. (11) History of venous thromboembolism: (12) DVT prophylaxis: Patient with acute on chronic anemia and GI bleeding. Hold Coumadin for now. INR therapeutic. SCDs History of Present Illness Chief Complaint: Syncopal episode Primary Care Provider: Isaias Templeton MD Patient is a 64 yo female with complicated PMHx including uncontrolled DM Type 2, hypothyroidism, dyslipidemia, HTN, recurrent C Diff infection, Chronic ulcerative colitis with rectal bleeding on and off and chronic diarrhea, CKD III, and hx of PE and DVT who presented to the ED with concern of syncopal episode at her apartment. The patient states that she was lightheaded and didn't feel well this morning, and then when we was leaving her apartment, she passed out and hit her face on the ground. Her nose started bleeding, and she believes that she was 'out' for a couple of minutes. She doesn't believe she his her head otherwise. No current headache. No N/V. She has chronic diarrhea, and she has had diarrhea over the past few days. She had a large episode or BRBPR yesterday and another small episode today. She has on and off red stools with black stools. She was recently placed on an iron supplement by her PCP. Last outpatient Hgb was 8.8 in October. She has complicated history with her ulcerative colitis/pancolitis. She was previously told that she may need colon resection if she would have another major bleed. She is due for repeat colonoscopy in January 2020. She has been on Entyvio for about 6 months. She was previously doing well with this medication with intermittent rectal bleeding. She does follow with GI as an outpatient. Since presentation, she was noted to have Hgb down to 6.5. Vitals are stable. WBC count slightly elevated at 11.9. No signs of infection on exam. Potassium slightly low at 3.4. She was receiving 1 unit PRBCs in the ED during exam. CT Head was negative for acute changes. Allergies Allergy/AdvReac Type Severity Reaction Status Date / Time aztreonam [From Azactam] Allergy Intermediate flushed Verified 01/01/20 18:41 /itching dorzolamide Allergy Unknown EYE LID Verified 01/01/20 18:41 SWELLING latanoprost Allergy Unknown EYE LID Verified 01/01/20 18:41 SWELLING Penicillins Allergy Unknown Unknown Verified 01/01/20 18:41 thimerosal Allergy Unknown Unknown Verified 01/01/20 18:41 timolol Allergy Unknown EYE LID Verified 01/01/20 18:41 SWELLING Home Medications Home Medications Medication Instructions Recorded Confirmed Type calcium citrate-vitamin D3 1 tab PO QAM 05/12/18 01/01/20 History [Citracal-D3 Petites] cholecalciferol (vitamin D3) 1,000 unit PO QAM 05/12/18 01/01/20 History [Vitamin D3] levothyroxine 75 mcg PO QAM 05/12/18 01/01/20 History Entyvio 300 mg IV DIRECTED 03/22/19 01/01/20 History Probiotic Acidophilus Biobeads 1 tab PO TIDM 03/22/19 01/01/20 History fluocinonide 1 applic TOPICAL BID 03/22/19 01/01/20 History furosemide [Lasix] 20 mg PO QAM PRN 03/22/19 01/01/20 History sertraline [Zoloft] 50 mg PO QAM 03/22/19 01/01/20 History anastrozole 1 mg PO QAM 07/21/19 01/01/20 History atorvastatin 40 mg PO HS 07/21/19 01/01/20 History colestipol 1 g PO TID 07/21/19 01/01/20 History pantoprazole 40 mg PO QAM 07/21/19 01/01/20 History potassium chloride [Klor-Con M20] 20 meq PO BID 07/21/19 01/01/20 History warfarin 2 - 4 mg PO DIRECTED 07/21/19 01/01/20 History insulin glargine [Lantus Solostar 22 unit SUBCUT QAM 01/01/20 01/01/20 History U-100 Insulin] trazodone 50 mg PO HS PRN 01/01/20 01/01/20 History triamcinolone acetonide 1 applic TOPICAL BID 01/01/20 01/01/20 History Past Med/Surg History Medical History (Updated 01/01/20 @ 20:27 by Lisbeth García PA-C) Acute hyponatremia (Inactive) Acute kidney injury (Inactive) Anemia (Inactive) Breast cancer, right (Chronic) 2012--SX & RADIATION, NO CHEMO C. difficile diarrhea (Inactive) Clostridium difficile diarrhea (Inactive) Colitis (Inactive) Crohns disease (Chronic) Depression (Inactive) Diabetes mellitus type 2, controlled (Inactive) Diverticulitis large intestine (Inactive) DVT (deep venous thrombosis) (Inactive) DVT (deep venous thrombosis) (Inactive) BILT LEGS 03/2018 DVT prophylaxis GERD (gastroesophageal reflux disease) (Chronic) GI bleed (Inactive) History of pulmonary embolus (PE) (Chronic) "dx in 2001, unprovoked" History of recent steroid use (Inactive) History of recent steroid use (Inactive) History of venous thromboembolism HLD (hyperlipidemia) (Chronic) HTN (hypertension) (Chronic) Hypertension (Inactive) Hypoglycemia associated with diabetes (Inactive) Hypokalemia (Inactive) Hypomagnesemia (Inactive) Hypomagnesemia (Inactive) Hypothyroidism (Chronic) 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) "Abnormal right breast mammogram Biopsy-positive for DCIS Status post lumpectomy with no residual tumor stage pTis NXMX Estrogen receptor positive, progesterone receptor positive Status post completion of radiation therapy 02/22/2013 received 3850 cGy utilizing accelerated partial breast treatment " Leukocytosis (leucocytosis) (Inactive) Obesity (BMI 30-39.9) (Chronic) Pancolitis (Acute) Pulmonary embolism Sepsis (Inactive) 03/2018 Severe sepsis (Inactive) SIRS (systemic inflammatory response syndrome) (Inactive) T2DM (type 2 diabetes mellitus) (Chronic) Ulcerative (chronic) pancolitis with unspecified complications (Chronic) UTI (urinary tract infection) (Inactive) Surgical History H/O breast biopsy (Chronic) 2012--RIGHT MALIGNANT H/O lumpectomy History of appendectomy (Resolved) History of colonoscopy (Chronic) History of lumpectomy of right breast (Resolved) "+ HERBIE ER/[place] + in 10/2012 s/p RT" History of tonsillectomy and adenoidectomy (Chronic) Hx of appendectomy S/P insertion of IVC (inferior vena caval) filter (Chronic) 03/29/[address] BUSTAMANTE Status post glaucoma surgery (Chronic) BILT Family History Mother Family history of diabetes mellitus Heart disease Father Family history of diabetes mellitus Heart disease Sister Family history of diabetes mellitus Grandmother Family history of diabetes mellitus PATERNAL Uterine cancer Sister Crohn's disease Social History Preferred Language: Syriac Communication Ability: Effective Visual Impairment: No Limitations Hearing Ability: Normal Professor Of Management Required: No Beliefs That Will Affect Care: None marital status: Single Current Living Situation: Alone Current Living Situation Comment: alone Other Information That Helps Us Care for You: No Feels Safe at Home: Yes Safety Concerns: Feels Safe At This Time Smoking Status: Never smoker Do You Dip or Chew Tobacco: No ; Second Hand Exposure: No ; Hx Alcohol Use: No Hx Substance Use: No Review of Systems Review of Systems: All systems reviewed & are unremarkable except as noted in HPI & below Physical Exam Constitutional: well developed and well nourished; no acute distress Note bandage on nose Eyes: PERRL, conjunctivae normal, anicteric sclerae ENMT: Nose: + external nose abnormality (Bleeding with bandage in place) Neck: trachea midline, no thyromegaly Respiratory: normal respiratory effort; no cough Cardiovascular: Rate/Rhythm: regular rate and regular rhythm Musculoskeletal: Head/Neck/Chest: normocephalic Trauma noted on bridge of nose. Otherwise atraumatic. Psychiatric: A+Ox3, euthymic affect Results & Data Results & Data ([facility]) Vital Signs (Past 12 Hours) Vital Signs Temp Pulse Resp BP Pulse Ox 01/01/20 20:00 37.4 C 82 16 112/68 100 01/01/20 19:50 36.8 C 76 16 129/96 100 01/01/20 19:45 36.8 C 75 19 129/96 100 01/01/20 17:32 82 18 100 01/01/20 17:30 107 H 22 119/56 L 97 01/01/20 16:00 37.1 C 104 H 20 123/79 100 Laboratory Results Laboratory Results - last 24 hr 01/01/20 01/01/20 01/01/20 17:45 17:45 17:45 WBC 11.94 H RBC 3.45 L Hgb 6.5 L* Hct 23.3 L MCV 67.5 L MCH 18.8 L MCHC 27.9 L RDW Std Deviation 41.0 RDW Coeff of Conchis 16.7 H Plt Count 507 H MPV 9.6 Immature Gran % (Auto) 0.5 Neut % (Auto) 80.4 Lymph % (Auto) 9.0 [place] % (Auto) 6.0 Eos % (Auto) 3.9 Baso % (Auto) 0.2 Neut # (Auto) 9.60 H Lymph # (Auto) 1.08 L [place] # (Auto) 0.72 H Eos # (Auto) 0.46 Baso # (Auto) 0.02 Immature Gran # (Auto) 0.06 H Hypochromasia Present PT 26.8 H INR 2.7 H Sodium 138 Potassium 3.4 L Chloride 107 Carbon Dioxide 23 Anion Gap 8.0 BUN 11 Creatinine 1.02 Est Cr Clr Drug Dosing 46.5 Est GFR ( Amer) 66.8 Est GFR (Non-Af Amer) 57.7 BUN/Creatinine Ratio 11.2 Glucose 193 H Calcium 9.1 Total Bilirubin 0.5 AST 9 L ALT 7 L Alkaline Phosphatase 134 H Total Creatine Kinase 45 Total Protein 6.9 Albumin 2.8 L Globulin 4.1 H Albumin/Globulin Ratio 0.7 L Blood Type Antibody Screen Crossmatch 01/01/20 17:55 WBC RBC Hgb Hct MCV MCH MCHC RDW Std Deviation RDW Coeff of Conchis Plt Count MPV Immature Gran % (Auto) Neut % (Auto) Lymph % (Auto) [place] % (Auto) Eos % (Auto) Baso % (Auto) Neut # (Auto) Lymph # (Auto) [place] # (Auto) Eos # (Auto) Baso # (Auto) Immature Gran # (Auto) Hypochromasia PT INR Sodium Potassium Chloride Carbon Dioxide Anion Gap BUN Creatinine Est Cr Clr Drug Dosing Est GFR ( Amer) Est GFR (Non-Af Amer) BUN/Creatinine Ratio Glucose Calcium Total Bilirubin AST ALT Alkaline Phosphatase Total Creatine Kinase Total Protein Albumin Globulin Albumin/Globulin Ratio Blood Type AB Negative Antibody Screen NEGATIVE Crossmatch See Detail Diagnostic Findings CXR: IMPRESSION: Negative chest. Head CT: Impression: No acute intracranial abnormality. Code Status & VTE Plan VTE Prophylaxis Plan VTE Prophylaxis will be ordered: Yes Supervising Physician Co-Signing Physician Notes Patient is a 64-year-old female with history of diabetes mellitus, ulcerative colitis, dyslipidemia, recurrent C. difficile colitis, hypertension, history of PE/DVT on Coumadin and other medical problems presents with history of syncopal episode and ongoing intermittent rectal bleeding. Also states having diarrhea chronically with bright red to black stools on and off. She believes that she lost consciousness for about 2 minutes and was an unwitnessed episode. She admits to having hit her face during the fall resulting in abrasion of the nose. She states having a large bright red blood per rectum yesterday and also a small quantity of blood in stool today. Her hemoglobin was noted to be 6.5 today. She was scheduled for elective colonoscopy in January 2020. Please review HPI for complete details of presentation. On exam patient is moderately built and nourished, no apparent distress, normocephalic, nose ablation in dressing, oriented x3, lungs are clear to auscultation, S1-S2, no murmur, no pedal edema, abdomen soft, mild right and left quadrant tenderness, no guarding or rigidity, grossly no focal neurological deficits. Patient is admitted for management of syncopal, symptomatic anemia, acute blood loss anemia, GI bleed. No known history of fever, significant abdominal pain. Likely not suggestive of ulcerative colitis flare. Given history of diarrhea, will rule out C. difficile. Will monitor H&H. Transfuse 2 units PRBCs. Consulted GI. Started on IV PPI BID. N.p.o. for now. Currently no active bleeding. Will give vitamin K to reverse INR. Hold Coumadin for now. Will order COVID screen given possible procedure needed. Will also check echo, carotid ultrasound and monitor on telemetry to rule out other causes of syncope. Check orthostatics as able. I personally reviewed the record. Patient is interviewed and examined at bedside. Patient's care is coordinated with Lisbeth García PA-C. Please refer to the documentation above for details of patient's presentation and for discussion of other issues. (1) GI bleed GI bleed type/associated pathology: unspecified gastrointestinal hemorrhage type Qualified Code(s): K92.2 - Gastrointestinal hemorrhage, unspecified (2) T2DM (type 2 diabetes mellitus) Diabetes mellitus complication status: with other specified complication Diabetes mellitus long-term insulin use: unspecified salvage determiner insulin use stat Qualified Code(s): E11.69 - Type 2 diabetes mellitus with other specified complication (3) Diarrhea Diarrhea type: unspecified type Qualified Code(s): R19.7 - Diarrhea, unspecified (4) HTN (hypertension) Hypertension type: essential hypertension Qualified Code(s): I10 - Essential (primary) hypertension
[2020-01-01] MEDS ORDERED: GLUCAGON FOR INJ 1 MG VIAL SQ PRN (21:21)
[2020-01-01] MEDS ORDERED: GLUCOSE 40% GEL 15 GM TUBE PO PRN (21:21)
[2020-01-01] MEDS ORDERED: FUROSEMIDE 20 MG TAB PO PRN (21:21)
[2020-01-01] MEDS ORDERED: GLUCOSE 10 TABS/TUBE PO PRN (21:21)
[2020-01-01] MEDS ORDERED: POTASSIUM CHLORIDE 20 MEQ TABCR PO STA (21:21)
[2020-01-01] MEDS ORDERED: CARBOHYDRATES FOR HYPOGLYCEMIA PO PRN (21:21)
[2020-01-01] MEDS ORDERED: DEXTROSE 50% 50 ML SYRINGE IV PRN (21:21)
[2020-01-01] MEDS ORDERED: ACETAMINOPHEN 325 MG TAB PO PRN (21:21)
[2020-01-01] MEDS: INSULIN GLARGINE SOLOSTAR 100 UNITS/ML 3 ML PEN SC SCH (22:22)
[2020-01-01] MEDS: INSULIN ASPART 100 UNITS/ML 3 ML PEN SC SCH ×2 (22:23→23:44)
[2020-01-01] MEDS: PANTOprazole 40 MG in SYRINGE 0 ML IV SCH (22:23)
[2020-01-01] MEDS: ATORVASTATIN 40 MG TAB PO SCH (22:23)
[2020-01-01] MEDS: NSS + 20MEQ KCL 20 MEQ/1,000 ML BAG IV SCH (22:23)
[2020-01-01] MEDS: COLESTIPOL HCL 1 GM TAB PO SCH (23:36)
[2020-01-01] MEDS ORDERED: PHYTONADIONE 5 MG TAB PO ONE (23:59)
[2020-01-02] MEDS: LEVOTHYROXINE SODIUM 75 MCG TABLET PO SCH (04:22)
[2020-01-02] MEDS: INSULIN ASPART 100 UNITS/ML 3 ML PEN SC SCH ×3 (06:04→20:30)
[2020-01-02 06:20] LABS: INR 2.3 (0.9-1.1); Prothrombin Time 23.2 Seconds (9.0-12.0)
[2020-01-02 06:21] LABS: Hemoglobin 8.5 g/dL (12.0-16.0); Mean Corpuscular Hemoglobin 21.9 pg (25-34); Mean Corpuscular Hgb Conc 29.3 g/dL (32-36); Mean Corpuscular Volume 74.7 fL (80-100); Mean Platelet Volume 9.4 fL (7.4-10.4); Platelet Count 395 K/uL (130-400); RDW Coefficient of Variation 22.8 % (11.5-14.5); RDW Standard Deviation 60.3 fL (36.4-46.3); Red Blood Count 3.88 M/uL (4.2-5.4); White Blood Count 8.08 K/uL (4.8-10.8)
[2020-01-02 06:42] LABS: Estimated Average Glucose 197 mg/dl; Hemoglobin A1C 8.5 % (4.5-5.6)
[2020-01-02 06:55] LABS: BUN Creatinine Ratio 13.3 (10-20); Calcium 8.4 mg/dl (8.5-10.1); Creatinine Clr Calc Pharmacy 49.6 ml/min; Est GFR (African American) 71.9; Est GFR (Non-African American) 62.1
--- NOTE | 2020-01-02 07:54 | Ultrasound Report ---
BILATERAL CAROTID DOPPLER STUDY HISTORY: Syncope COMPARISON: None. TECHNIQUE: Real-time, grayscale, and color Doppler sonography of the carotid arteries was performed. Imaging reviewed in the transverse and longitudinal planes. All measurements were calculated based on NASCET criteria. FINDINGS: Antegrade flow is seen in the bilateral vertebral arteries. The brachial pressures are hemodynamically similar. Minimal calcified plaque within the bilateral carotid bifurcations. The peak systolic velocity within the right ICA is 98 cm/s. The right systolic ratio is 1.2. The peak systolic velocity within the left ICA is 133 cm/s distally. The left systolic ratio is 1.2. IMPRESSION: 1. Approximately 50% stenosis within the distal left internal carotid artery. 2. No hemodynamically significant stenosis within the right carotid arteries. ACT 112: Negative or not required by law. Electronically signed by: Minh Bhat M.D. 01/02/2020 7:53 AM
[2020-01-02] MEDS ORDERED: PANTOprazole 40 MG TAB PO SCH (09:00)
[2020-01-02] MEDS: PANTOprazole 40 MG in SYRINGE 0 ML IV SCH ×2 (09:02→20:41)
[2020-01-02] MEDS: SERTRALINE HCL 50 MG TABLET PO SCH (09:03)
[2020-01-02] MEDS: CALCIUM 600MG + VIT D 400 IU TAB PO SCH (09:03)
[2020-01-02] MEDS: CHOLECALCIFEROL 1,000 UNITS 25 MCG TAB PO SCH (09:03)
[2020-01-02] MEDS: ANASTROZOLE 1 MG TAB PO SCH (09:03)
[2020-01-02] MEDS: LACTOBACILLUS ACIDOPHILUS (FLORANEX) TAB PO SCH ×3 (09:04→17:03)
[2020-01-02] MEDS: COLESTIPOL HCL 1 GM TAB PO SCH ×3 (09:08→22:08)
[2020-01-02] MEDS ORDERED: Nursing to Pharmacy Communication SCH ×2 (10:00→16:45)
[2020-01-02 10:03] LABS: Hematocrit (blood only) 28.3 % (37-47); Hemoglobin 8.6 g/dL (12.0-16.0)
[2020-01-02] MEDS: INSULIN GLARGINE SOLOSTAR 100 UNITS/ML 3 ML PEN SC SCH ×2 (10:14→20:40)
--- NOTE | 2020-01-02 11:42 | Hospitalist Progress Note ---
Date of Service January 02, 2020 Assessment & Plan (1) Symptomatic anemia: 2/2 acute blood loss anemia from ongoing hematochezia in setting of IBD with flare. GI consulted and addressing the IBD with mesalamine. She received two units of pRBCs and H/H went from 6.5/23 to 8.5/27. She denies any further lightheadedness, and feels better overall. (2) Ulcerative (chronic) pancolitis with unspecified complications: Mesalamine per GI. Check stool studies for infection. Cont supportive care for symptoms. clears, advance diet per GI recs. (3) T2DM (type 2 diabetes mellitus): A1C is 8.5 reflecting poor but improved control. At inpatient goal on basal/bolus insulin. (4) History of venous thromboembolism: h/o recurrent DVT. On lifelong warfarin which was held and INR is trending down. INR in am. (5) Hypothyroidism: cont Synthroid per home regimen. (6) DVT prophylaxis: SCDs with bleeding Full Code Dispo-home when medically stable [facility] Admission and Anticipated Discharge Date Admission Date: January 01, 2020 Subjective Pt reports persistent bloody bowel movements with abdominal pain Tolerating clear liquids Denies other symptoms such as chest pain or SOB GI started mesalamine Review of Systems Review of Systems: All systems reviewed & are unremarkable except as noted in Subjective Physical Exam Physical Exam: CONSTITUTIONAL: WNWD, vitals as above, generally well- appearing EYES: EOMI bilaterally, PERRL, normal conjunctivae, no scleral icterus ENT: MMM, trauma to bridge of nose NECK: trachea midline RESPIRATORY: clear to auscultation bilaterally, no crackles, rales or wheezes, normal respiratory effort CARDIOVASCULAR: regular rate and rhythm, S1 and 2 heard without murmurs, gallops or rubs, no JVD, no peripheral edema GASTROINTESTINAL: normal bowel sounds, soft, nontender, nondistended MUSCULOSKELETAL: strength 5/5 throughout, head is normocephalic and atraumatic, neck supple, normal palpation of chest wall without tenderness SKIN: warm and dry, trauma to bridge and forehead-well healed NEUROLOGIC: CN 2-12 grossly intact, normal cognition PSYCHIATRIC: alert cooperative and oriented to person, place and time. Results & Data Results & Data ([facility]) Vital Signs (Past 12 Hours) Vital Signs Temp Pulse Pulse Resp BP BP Pulse Ox 01/02/20 11:21 37.3 C 82 17 121/69 94 01/02/20 07:50 37.2 C 83 19 114/67 96 01/02/20 05:00 36.8 C 76 17 109/69 97 01/02/20 03:00 36.6 C 85 18 106/71 99 01/02/20 02:00 37.5 C 82 18 99/64 L 96 01/02/20 01:30 37.3 C 82 18 109/64 97 01/02/20 01:15 37.3 C 85 18 109/60 96 01/02/20 00:59 37.2 C 89 18 113/68 97 Laboratory Results Short CBC 01/01/20 01/02/20 01/02/20 Range/Units 17:45 05:54 09:43 WBC 11.94 H 8.08 (4.8-10.8) K/uL Hgb 6.5 L* 8.5 L 8.6 L (12.0-16.0) g/dL Hct 23.3 L 29.0 L 28.3 L (37-47) % Plt Count 507 H 395 (130-400) K/uL BMP 01/01/20 01/02/20 17:45 05:54 Sodium 138 142 Potassium 3.4 L 4.0 D Chloride 107 112 H Carbon Dioxide 23 25 BUN 11 13 Creatinine 1.02 0.96 Glucose 193 H 91 Calcium 9.1 8.4 L Cardiac Enzymes 01/01/20 Range/Units 17:45 Total Creatine Kinase 45 (26-192) U/L Liver Function 01/01/20 Range/Units 17:45 Total Bilirubin 0.5 (0.2-1) mg/dl AST 9 L (15-37) U/L ALT 7 L (12-78) U/L Alkaline Phosphatase 134 H (45-117) U/L Albumin 2.8 L (3.4-5.0) gm/dl Medications Administered Current Inpatient Medications Acetaminophen (Tylenol) 650 mg PO Q4H PRN PRN Reason: Pain or Fever Stop: 01/31/20 21:20 [facility]) [facility] Stop: 02/01/20 08:59 Last Admin: 01/02/20 09:03 Dose: Not Given Documented by: Atorvastatin Calcium (Lipitor) 40 mg PO HS RACHEL Stop: 01/31/20 21:20 Last Admin: 01/01/20 22:23 Dose: 40 mg Documented by: Colestipol HCl (Colestid) 1 gm PO TID@1000,1500,2200 RACHEL Stop: 01/31/20 21:59 Last Admin: 01/02/20 09:08 Dose: 1 gm Documented by: Dextrose (Dextrose 50%) 25 - 50 ml IV UD PRN; Protocol PRN Reason: Hypoglycemia Protocol Stop: 01/31/20 21:20 Furosemide (Lasix) 20 mg PO QAM PRN PRN Reason: Edema Stop: 01/31/20 21:20 Glucagon (Glucagen) 1 mg SQ UD PRN; Protocol PRN Reason: Hypoglycemia Protocol Stop: 01/31/20 21:20 Glucose (Dex4 Glucose) 4 - 8 tabs PO UD PRN; Protocol PRN Reason: Hypoglycemia Protocol Stop: 01/31/20 21:20 Glucose (Glucose 40%) 15 - 30 gm PO UD PRN; Protocol PRN Reason: Hypoglycemia Protocol Stop: 01/31/20 21:20 Pantoprazole Sodium 40 mg/ (Syringe) 10 mls @ 5 mls/min IV BID RACHEL Stop: 01/31/20 21:59 Last Admin: 01/02/20 09:02 Dose: 5 mls/min Documented by: Potassium Chloride/Sodium Chloride (Normal Saline W/20 Meq Kcl) 20 meq in 1,000 mls @ 80 mls/hr IV .[id number] RACHEL Stop: 01/31/20 21:20 Last Admin: 01/01/20 22:23 Dose: 80 mls/hr Documented by: Insulin Aspart (Novolog Flexpen) 0 units SC Q6 RACHEL Stop: 01/31/20 21:44 Last Admin: 01/02/20 06:04 Dose: Not Given Documented by: Insulin Glargine (Lantus Solostar Pen) 5 units SC BID RACHEL Stop: 01/31/20 21:20 Last Admin: 01/02/20 10:14 Dose: Not Given Documented by: Lactobacillus Acidophilus (Floranex) 4 tab PO TIDM RACHEL Stop: 02/01/20 07:59 Last Admin: 01/02/20 09:04 Dose: 4 tab Documented by: Levothyroxine Sodium (Synthroid) 75 mcg PO DAILYBB [facility] Stop: 02/01/20 06:29 Last Admin: 01/02/20 04:22 Dose: Not Given Documented by: Miscellaneous (Carbohydrates For Hypoglycemia) 15 - 30 gm PO UD PRN PRN Reason: Hypoglycemia Protocol Stop: 01/31/20 21:20 Multivitamins/Minerals (Caltrate Plus) 1 tab PO [facility] Stop: 02/01/20 08:59 Last Admin: 01/02/20 09:03 Dose: 1 tab Documented by: Sertraline HCl (Zoloft) 50 mg PO [facility] Stop: 02/01/20 08:59 Last Admin: 01/02/20 09:03 Dose: 50 mg Documented by: Vitamin D (Vitamin D3) 1,000 units PO [facility] Stop: 02/01/20 08:59 Last Admin: 01/02/20 09:03 Dose: 1,000 units Documented by: (1) T2DM (type 2 diabetes mellitus) Diabetes mellitus complication status: with other specified complication 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
[2020-01-02 11:51] LABS: Appearance Urine Clear (Clear); Bacteria Urine Automated Negative (Negative); Bilirubin Urine Negative (Negative); Blood Urine Trace (Negative); Color Urine Yellow; Epithelial Cell Urine Auto >30 /lpf (0-5); Glucose Urine UA Negative (Negative); Ketones Urine Negative (Negative); Leukocyte Esterase Urine 2+ (Negative); Nitrite Urine Negative (Negative); Protein Urine Trace (Negative); Specific Gravity Urine 1.015 (1.000-1.030); Urobilinogen Urine Negative (Negative); WBC Urine Automated >30 /hpf (0-5)
--- NOTE | 2020-01-02 12:48 | Gastrointestinal Consultation ---
Date of Consultation January 02, 2020 Assessment & Plan (1) Symptomatic anemia: (2) BRBPR (bright red blood per rectum): (3) Ulcerative pancolitis: Pt is a 64 y/o female admitted yesterday after having syncope and falling at home, noted to have worsening anemia. She has hx of Ulcerative pancolitis, Cdiff s/p fecal transplant, and noticed in last few weeks she had been having increased fatigue, YORK. Stool frequency up, and also having increased rectal bleeding. DDX: UC flare, recurrent Cdiff, hemorrhoidal bleeding. - Ok to start CL diet - Check Cdiff, stool culture - Obtain KUB to r/o obstruction, colonic distension - Start Mesalamine 1.6g TID - Monitor H/H and transfuse prn - If stool studies negative, plan to possibly start her on steroids for possible UC flare and consider repeat colonoscopy for disease staging Supervising Physician Co-Signing Physician Notes Attending attestation I have seen, examined this patient, and agree with the findings and above by our mid-level provider MARK Smith, with the following additions: - Will follow c-diff, start ASA, if c-diff negative will plan on steroids - Continue supportive care History of Present Illness Reason for Consultation: Rectal bleeding, ulcerative colitis Requesting Physician: Dr. Mendoza Fajardo Attending Physician: Dr. Florian Greco History of Present Illness Pt is a 64 y/o female presented yesterday after having syncopal episode and falling on face at home. She has hx of ulcerative pancolitis currently on Entyvio IV, hx of Cdiff s/p fecal transplant in 01/2019. At baseline has about 6 BMs daily w intermittent rectal bleeding. She noticed that in last month or so, blood ct showed worsening anemia, placed on iron supplements by PCP. In last couple of weeks noticed increased YORK and fatigue. Stool frequency also up at 10 daily now and she admits to having increased rectal bleeding (50% of bowel movements). She denies fever, chills, CP, SOB, abd pain, n/v. Denies weight loss, sick contact or recent antibx uses. Labs reviewed: no leukocytosis, H/H 01/01, s/p 2U PRBC transfusion yesterday. Hgb up to 8.5 this AM. No signs of electrolyte imbalance. BUN/Cr, LFTs unremarkable. INR up on Coumadin for hx of DVTs Allergies Allergy/AdvReac Type Severity Reaction Status Date / Time aztreonam [From Azactam] Allergy Intermediate flushed Verified 01/01/20 18:41 /itching dorzolamide Allergy Unknown EYE LID Verified 01/01/20 18:41 SWELLING latanoprost Allergy Unknown EYE LID Verified 01/01/20 18:41 SWELLING Penicillins Allergy Unknown Unknown Verified 01/01/20 18:41 thimerosal Allergy Unknown Unknown Verified 01/01/20 18:41 timolol Allergy Unknown EYE LID Verified 01/01/20 18:41 SWELLING Home Medications Home Medications Medication Instructions Recorded Confirmed Type calcium citrate-vitamin D3 1 tab PO QAM 05/12/18 01/01/20 History [Citracal-D3 Petites] cholecalciferol (vitamin D3) 1,000 unit PO QAM 05/12/18 01/01/20 History [Vitamin D3] levothyroxine 75 mcg PO QAM 05/12/18 01/01/20 History Entyvio 300 mg IV DIRECTED 03/22/19 01/01/20 History Probiotic Acidophilus Biobeads 1 tab PO TIDM 03/22/19 01/01/20 History fluocinonide 1 applic TOPICAL BID 03/22/19 01/01/20 History furosemide [Lasix] 20 mg PO QAM PRN 03/22/19 01/01/20 History sertraline [Zoloft] 50 mg PO QAM 03/22/19 01/01/20 History anastrozole 1 mg PO QAM 07/21/19 01/01/20 History atorvastatin 40 mg PO HS 07/21/19 01/01/20 History colestipol 1 g PO TID 07/21/19 01/01/20 History pantoprazole 40 mg PO QAM 07/21/19 01/01/20 History potassium chloride [Klor-Con M20] 20 meq PO BID 07/21/19 01/01/20 History warfarin 2 - 4 mg PO DIRECTED 07/21/19 01/01/20 History insulin glargine [Lantus Solostar 22 unit SUBCUT QAM 01/01/20 01/01/20 History U-100 Insulin] trazodone 50 mg PO HS PRN 01/01/20 01/01/20 History triamcinolone acetonide 1 applic TOPICAL BID 01/01/20 01/01/20 History Patient History Medical History Acute hyponatremia (Inactive) Acute kidney injury (Inactive) Anemia (Inactive) Breast cancer, right (Chronic) 2012--SX & RADIATION, NO CHEMO C. difficile diarrhea (Inactive) Clostridium difficile diarrhea (Inactive) Colitis (Inactive) Crohns disease (Chronic) Depression (Inactive) Diabetes mellitus type 2, controlled (Inactive) Diverticulitis large intestine (Inactive) DVT (deep venous thrombosis) (Inactive) DVT (deep venous thrombosis) (Inactive) BILT LEGS 03/2018 DVT prophylaxis GERD (gastroesophageal reflux disease) (Chronic) GI bleed (Inactive) History of pulmonary embolus (PE) (Chronic) "dx in 2001, unprovoked" History of recent steroid use (Inactive) History of recent steroid use (Inactive) History of venous thromboembolism HLD (hyperlipidemia) (Chronic) HTN (hypertension) (Chronic) Hypertension (Inactive) Hypoglycemia associated with diabetes (Inactive) Hypokalemia (Inactive) Hypomagnesemia (Inactive) Hypomagnesemia (Inactive) Hypothyroidism (Chronic) 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) "Abnormal right breast mammogram Biopsy-positive for DCIS Status post lumpectomy with no residual tumor stage pTis NXMX Estrogen receptor positive, progesterone receptor positive Status post completion of radiation therapy 02/22/2013 received 3850 cGy utilizing accelerated partial breast treatment " Leukocytosis (leucocytosis) (Inactive) Obesity (BMI 30-39.9) (Chronic) Pancolitis (Acute) Pulmonary embolism Sepsis (Inactive) 03/2018 Severe sepsis (Inactive) SIRS (systemic inflammatory response syndrome) (Inactive) T2DM (type 2 diabetes mellitus) (Chronic) Ulcerative (chronic) pancolitis with unspecified complications (Chronic) UTI (urinary tract infection) (Inactive) Surgical History H/O breast biopsy (Chronic) 2012--RIGHT MALIGNANT H/O lumpectomy History of appendectomy (Resolved) History of colonoscopy (Chronic) History of lumpectomy of right breast (Resolved) "+ HERBIE ER/IL + in 10/2012 s/p RT" History of tonsillectomy and adenoidectomy (Chronic) Hx of appendectomy S/P insertion of IVC (inferior vena caval) filter (Chronic) 03/29/[address] 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 [employer] Department Required: No Beliefs That Will Affect Care: None marital status: Single Current Living Situation: Alone Current Living Situation Comment: alone Other Information That Helps Us Care for You: No Feels Safe at Home: Yes Safety Concerns: Feels Safe At This Time Smoking Status: Never smoker Do You Dip or Chew Tobacco: No ; Second Hand Exposure: No ; Hx Alcohol Use: No Hx Substance Use: No Review of Systems Review of Systems: All systems reviewed & are unremarkable except as noted in HPI & below Physical Exam Constitutional: WD/WN, vitals as above well groomed, cooperative and comfortable Eyes: PERRL, conjunctivae normal, anicteric sclerae ENMT: external ear and nose normal, oropharynx normal Respiratory: normal respiratory effort, lungs clear to auscultation Cardiovascular: RRR, no murmur, no edema Gastrointestinal (Abdomen): normal bowel sounds, soft, nontender, no hepa tosplenomegaly Skin: no rashes, warm and dry no jaundice Psychiatric: A+Ox3, euthymic affect Lymphatic: no lymphedema Results & Data ([facility]) Vital Signs (Past 12 Hours) Vital Signs Temp Pulse Pulse Resp BP BP Pulse Ox 01/02/20 11:21 37.3 C 82 17 121/69 94 01/02/20 07:50 37.2 C 83 19 114/67 96 01/02/20 05:00 36.8 C 76 17 109/69 97 01/02/20 03:00 36.6 C 85 18 106/71 99 01/02/20 02:00 37.5 C 82 18 99/64 L 96 01/02/20 01:30 37.3 C 82 18 109/64 97 01/02/20 01:15 37.3 C 85 18 109/60 96 01/02/20 00:59 37.2 C 89 18 113/68 97
[2020-01-02] MEDS: NSS + 20MEQ KCL 20 MEQ/1,000 ML BAG IV SCH (12:49)
--- NOTE | 2020-01-02 13:35 | XRay Report ---
KUB HISTORY: diarrhea, rectal bleeding COMPARISON: KUB 05/18/2018. FINDINGS: The bowel gas pattern is unremarkable. There are no dilated loops of small bowel to suggest an obstruction. No renal or ureteral calculi. There is a 3.3 cm gallstone. An IVC filter is unchang ed in position. Calcifications in the deep pelvis consistent with phleboliths. Moderate wall performe d stool seen throughout the majority of the colon. No pneumoperitoneum or pneumatosis. IMPRESSION: 1. No evidence for bowel obstruction. 2. Moderate well-formed stool seen throughout the majority of the colon. 3. Stable cholelithiasis. ACT 112: Negative or not required by law. Electronically signed by: Minh Bhat M.D. 01/02/2020 1:34 PM
--- NOTE | 2020-01-02 15:35 | Electrocardiogram Report ---
Test Reason : Blood Pressure : / mmHG Vent. Rate : 078 BPM Atrial Rate : 078 BPM P-R Int : 168 ms QRS Dur : 078 ms QT Int : 396 ms P-R-T Axes : 044 001 042 degrees QTc Int : 451 ms Normal sinus rhythm with sinus arrhythmia Otherwise Normal ECG When compared with ECG of 22-MAR-2019 00:26, ST no longer depressed in Lateral leads Confirmed by Miguel Vincent ([id number]) on 01/02/2020 3:35:06 PM Referred By: REFERRED SELF Confirmed By:Miguel Vincent
[2020-01-02] MEDS: MESALAMINE 800 MG TABCR PO SCH ×2 (15:43→20:41)
[2020-01-02] MEDS ORDERED: INSULIN ASPART 100 UNITS/ML 3 ML PEN SC ONE (17:00)
[2020-01-02] MEDS: ATORVASTATIN 40 MG TAB PO SCH (20:40)
[2020-01-03] MEDS: NSS + 20MEQ KCL 20 MEQ/1,000 ML BAG IV SCH ×3 (01:22→23:18)
[2020-01-03] MEDS: LEVOTHYROXINE SODIUM 75 MCG TABLET PO SCH (05:47)
[2020-01-03 06:19] LABS: Hematocrit (blood only) 30.2 % (37-47); Hemoglobin 8.9 g/dL (12.0-16.0); Mean Corpuscular Hemoglobin 21.8 pg (25-34); Mean Corpuscular Hgb Conc 29.5 g/dL (32-36); Mean Platelet Volume 9.1 fL (7.4-10.4); Platelet Count 408 K/uL (130-400); RDW Coefficient of Variation 22.9 % (11.5-14.5); RDW Standard Deviation 59.7 fL (36.4-46.3); Red Blood Count 4.08 M/uL (4.2-5.4); White Blood Count 6.45 K/uL (4.8-10.8)
[2020-01-03 06:50] LABS: BUN Creatinine Ratio 7.4 (10-20); Calcium 8.6 mg/dl (8.5-10.1); Creatinine Clr Calc Pharmacy 48.1 ml/min; Est GFR (African American) 69.3; Est GFR (Non-African American) 59.8; Potassium 3.8 mmol/L (3.5-5.1)
[2020-01-03] MEDS: MESALAMINE 800 MG TABCR PO SCH ×3 (08:45→20:15)
[2020-01-03] MEDS: ANASTROZOLE 1 MG TAB PO SCH (08:45)
[2020-01-03] MEDS: LACTOBACILLUS ACIDOPHILUS (FLORANEX) TAB PO SCH ×3 (08:46→16:46)
[2020-01-03] MEDS: SERTRALINE HCL 50 MG TABLET PO SCH (08:46)
[2020-01-03] MEDS: PANTOprazole 40 MG in SYRINGE 0 ML IV SCH ×2 (08:47→20:15)
[2020-01-03] MEDS: INSULIN GLARGINE SOLOSTAR 100 UNITS/ML 3 ML PEN SC SCH ×2 (08:47→20:20)
[2020-01-03] MEDS: CALCIUM 600MG + VIT D 400 IU TAB PO SCH (08:48)
[2020-01-03] MEDS: CHOLECALCIFEROL 1,000 UNITS 25 MCG TAB PO SCH (08:48)
[2020-01-03] MEDS: INSULIN ASPART 100 UNITS/ML 3 ML PEN SC SCH ×4 (08:48→20:20)
[2020-01-03] MEDS: COLESTIPOL HCL 1 GM TAB PO SCH ×3 (09:53→22:34)
--- NOTE | 2020-01-03 11:44 | Gastroenterology Progress Note ---
Date of Service January 03, 2020 Assessment & Plan (1) Symptomatic anemia: (2) BRBPR (bright red blood per rectum): (3) Ulcerative pancolitis: Pt is a 64 y/o female admitted yesterday after having syncope and falling at home, noted to have worsening anemia. She received 3U PRBC transfusion w improvement of blood ct. She has hx of Ulcerative pancolitis, Cdiff s/p fecal transplant, and noticed in last few weeks she had been having increased fatigue, YORK. Stool frequency up, and also having increased rectal bleeding. Cdiff negative, stool cx pending. Suspect UC flare - FL diet - F/U stool cx - Start Methylprednisolone 20mg q8hrs IV - Continue Mesalamine 1.6g TID - Monitor H/H and transfuse prn - Will discuss w my attending physician on possible colonscopy for disease staging. Admission and Anticipated Discharge Date Admission Date: January 01, 2020 Supervising Physician Co-Signing Physician Notes I saw and evaluated the patient. She reports that she is starting to feel somewhat improved after starting the steroids. Recommendations Continue with IV steroids will convert to oral once the patient is clinically improved Subjective Pt reports about 4 BMs yesterday, loose w rectal bleeding. Denies fever,chills, abd pain, n/v. Review of Systems Review of Systems: All systems reviewed & are unremarkable except as noted in HPI & below Physical Exam Constitutional: WD/WN, vitals as above well groomed, cooperative and comfortable Eyes: PERRL, conjunctivae normal, anicteric sclerae ENMT: external ear and nose normal, oropharynx normal Respiratory: normal respiratory effort, lungs clear to auscultation Cardiovascular: RRR, no murmur, no edema Gastrointestinal (Abdomen): normal bowel sounds, soft, nontender, no hepatosplenomegaly Skin: no rashes, warm and dry no jaundice Psychiatric: A+Ox3, euthymic affect Lymphatic: no lymphedema Results & Data ([facility]) Vital Signs (Past 12 Hours) Vital Signs Temp Pulse Pulse Resp BP Pulse Ox 01/03/20 11:16 36.9 C 95 H 18 129/71 96 01/03/20 08:04 36.5 C 85 18 146/79 H 95 01/03/20 08:00 82 01/03/20 04:00 36.9 C 91 H 18 130/78 97 01/03/20 00:17 93 H
[2020-01-03] MEDS: methylPREDNISolone 20 MG in SYRINGE 0 ML IV SCH ×2 (13:08→22:34)
[2020-01-03] MEDS: ATORVASTATIN 40 MG TAB PO SCH (20:15)
--- NOTE | 2020-01-03 21:27 | Hospitalist Progress Note ---
Date of Service January 03, 2020 Assessment & Plan (1) Syncope and collapse: Presented with syncope, probably secondary to severe anemia. No recurrence. Continue cardiac monitoring. (2) Acute on chronic blood loss anemia: Hgb at time of admission 6.5. Acute / recurrent blood loss secondary to ulcerative colitis, aggravated by anticoagulant therapy. INR 2.7 day of admission. Received 3 units pRBC's. Hgb today 8.9. Follow. (3) Ulcerative pancolitis: Management per GI. (4) T2DM (type 2 diabetes mellitus): Lantus / NovoLog per protocol. (5) History of venous thromboembolism: History of DVT and PE. Management complicated because of intermittent GI bleeding. Warfarin on hold due to recurrent GI bleeding. S/P IVC filter. (6) DVT prophylaxis: Warfarin on hold due to GI bleeding. SCD's. Ambulate. (7) Discharge planning issues: Anticipated discharge to home. Family Medicine follow-up with Dr. Templeton. Admission and Anticipated Discharge Date Admission Date: January 01, 2020 Subjective Recheck for syncope, severe anemia, and other problems. Patient seen in their room around 1130. Feels better. No further syncope. Persistent rectal bleeding. Mild lower extremity discomfort. No N/V. Would like to advance diet. Review of Systems: Constitutional- no fever. Cardiac- no chest pain. Pulmonary- no cough or SOB. GI- as noted above. - no urinary symptoms. Otherwise, as noted above. Physical Exam Constitutional: no acute distress Respiratory: no respiratory distress Auscultation: lungs clear to auscultation bilaterally Cardiovascular: Rate/Rhythm: regular rate and regular rhythm Vessels: no JVD Extremities: + edema (trace - 1+ pretibial); no calf tenderness Gastrointestinal (Abdomen): Inspection/Auscultation: normal bowel sounds Percussion/Palpation: + abdomen tender (mild lower abd tenderness without rebound or guarding) and abdomen soft Musculoskeletal: Extremities: no cyanosis Skin: no rashes, warm and dry Psychiatric: Orientation: alert and oriented x 3 Results & Data Results & Data ([facility]) Vital Signs (Past 12 Hours) Vital Signs Temp Pulse Pulse Resp BP BP Pulse Ox 01/03/20 19:51 37.4 C 88 18 122/78 94 01/03/20 15:28 37.5 C 92 H 18 137/84 95 06/24/20 15:21 90 01/03/20 11:16 36.9 C 95 H 18 129/71 96 Laboratory Results Laboratory Results - last 24 hr 01/01/20 01/03/20 01/03/20 17:55 05:55 05:55 WBC 6.45 RBC 4.08 L Hgb 8.9 L Hct 30.2 L MCV 74.0 L MCH 21.8 L MCHC 29.5 L RDW Std Deviation 59.7 H RDW Coeff of Conchis 22.9 H Plt Count 408 H MPV 9.1 Sodium 141 Potassium 3.8 Chloride 113 H Carbon Dioxide 23 Anion Gap 5.0 BUN 7 D Creatinine 0.99 Est Cr Clr Drug Dosing 48.1 Est GFR ( Amer) 69.3 Est GFR (Non-Af Amer) 59.8 BUN/Creatinine Ratio 7.4 L Glucose 87 POC Glucose Calcium 8.6 Blood Type AB Negative Antibody Screen NEGATIVE Crossmatch See Detail 01/03/20 01/03/20 01/03/20 07:24 11:23 16:14 WBC RBC Hgb Hct MCV MCH MCHC RDW Std Deviation RDW Coeff of Conchis Plt Count MPV Sodium Potassium Chloride Carbon Dioxide Anion Gap BUN Creatinine Est Cr Clr Drug Dosing Est GFR ( Amer) Est GFR (Non-Af Amer) BUN/Creatinine Ratio Glucose POC Glucose 102 H 126 H 167 H Calcium Blood Type Antibody Screen Crossmatch 01/03/20 20:19 WBC RBC Hgb Hct MCV MCH MCHC RDW Std Deviation RDW Coeff of Conchis Plt Count MPV Sodium Potassium Chloride Carbon Dioxide Anion Gap BUN Creatinine Est Cr Clr Drug Dosing Est GFR ( Amer) Est GFR (Non-Af Amer) BUN/Creatinine Ratio Glucose POC Glucose 245 H Calcium Blood Type Antibody Screen Crossmatch (1) T2DM (type 2 diabetes mellitus) Diabetes mellitus chief technician x ray insulin use: unspecified correction insulin use status Diabetes mellitus complication status: with other specified complication Qualified Code(s): E11.69 - Type 2 diabetes mellitus with other specified complication
[2020-01-04] MEDS: methylPREDNISolone 20 MG in SYRINGE 0 ML IV SCH ×2 (06:28→13:28)
[2020-01-04] MEDS: LEVOTHYROXINE SODIUM 75 MCG TABLET PO SCH (06:28)
[2020-01-04 06:40] LABS: Hematocrit (blood only) 28.9 % (37-47); Hemoglobin 8.5 g/dL (12.0-16.0); Mean Corpuscular Hemoglobin 22.2 pg (25-34); Mean Corpuscular Hgb Conc 29.4 g/dL (32-36); Mean Corpuscular Volume 75.5 fL (80-100); Mean Platelet Volume 9.6 fL (7.4-10.4); Platelet Count 370 K/uL (130-400); RDW Coefficient of Variation 23.5 % (11.5-14.5); RDW Standard Deviation 63.1 fL (36.4-46.3); Red Blood Count 3.83 M/uL (4.2-5.4); White Blood Count 4.44 K/uL (4.8-10.8)
[2020-01-04 06:48] LABS: INR 1.9 (0.9-1.1); Prothrombin Time 19.3 Seconds (9.0-12.0)
[2020-01-04 07:18] LABS: BUN Creatinine Ratio 8.5 (10-20); Calcium 8.5 mg/dl (8.5-10.1); Creatinine Clr Calc Pharmacy 46.4 ml/min; Est GFR (African American) 65.3; Est GFR (Non-African American) 56.3; Potassium 4.5 mmol/L (3.5-5.1)
--- NOTE | 2020-01-04 08:02 | Gastroenterology Progress Note ---
Date of Service January 04, 2020 Assessment & Plan (1) Symptomatic anemia: (2) BRBPR (bright red blood per rectum): (3) Ulcerative pancolitis: Pt is a 64 y/o female admitted for symptomatic anemia, s/p 3U PRBC transfusion; and likely having UC flare. Cdiff and stool cx negative. She is clinically improved after given additional 5-ASA and IV steroids. - Advanced to solid meal - Continue Mesalamine 1.6g TID; convert IV steroids to Prednisone taper upon DC: 40mg daily x 1 week, 30mg daily x 1 week, 20mg daily x 1 week, 15mg daily x 1 week, 10mg daily x 1 week, 5mg daily x 1 week then stop. - Monitor H/H and transfuse prn - No contradindication for DC home today from GI standpoint. Will keep her colonoscopy appt mid January w Dr. Chow for disease staging. Admission and Anticipated Discharge Date Admission Date: January 01, 2020 Supervising Physician Co-Signing Physician Notes Attending attestation I have seen, examined this patient, and agree with the findings and above by our mid-level provider MARK Smith, with the following additions: Patient is doing well, eating, brown stools, no signs of bleeding, no signs of volume depletion. On steroids with outpatient plan in place Subjective Pt reports watery stools still but frequency slowed down and no longer seeing any rectal bleeding. Denies abd pain, n/v. Review of Systems Review of Systems: All systems reviewed & are unremarkable except as noted in HPI & below Physical Exam Constitutional: WD/WN, vitals as above well groomed, cooperative and comfortable Eyes: PERRL, conjunctivae normal, anicteric sclerae ENMT: external ear and nose normal, oropharynx normal Respiratory: normal respiratory effort, lungs clear to auscultation Cardiovascular: RRR, no murmur, no edema Gastrointestinal (Abdomen): normal bowel sounds, soft, nontender, no hepatosplenomegaly Skin: no rashes, warm and dry no jaundice Psychiatric: A+Ox3, euthymic affect Lymphatic: no lymphedema Results & Data ([facility]) Vital Signs (Past 12 Hours) Vital Signs Temp Pulse Resp BP Pulse Ox 01/04/20 04:56 36.5 C 79 18 120/68 95 01/03/20 23:38 36.8 C 76 18 124/75 97
[2020-01-04] MEDS: INSULIN ASPART 100 UNITS/ML 3 ML PEN SC SCH ×2 (08:15→11:50)
[2020-01-04] MEDS: LACTOBACILLUS ACIDOPHILUS (FLORANEX) TAB PO SCH ×2 (08:16→11:50)
[2020-01-04] MEDS: ANASTROZOLE 1 MG TAB PO SCH (08:16)
[2020-01-04] MEDS: CHOLECALCIFEROL 1,000 UNITS 25 MCG TAB PO SCH (08:17)
[2020-01-04] MEDS: CALCIUM 600MG + VIT D 400 IU TAB PO SCH (08:17)
[2020-01-04] MEDS: SERTRALINE HCL 50 MG TABLET PO SCH (08:17)
[2020-01-04] MEDS: INSULIN GLARGINE SOLOSTAR 100 UNITS/ML 3 ML PEN SC SCH (08:18)
[2020-01-04] MEDS: MESALAMINE 800 MG TABCR PO SCH ×2 (08:18→13:28)
[2020-01-04] MEDS ORDERED: PANTOprazole 40 MG TAB PO SCH (09:00)
[2020-01-04] MEDS: COLESTIPOL HCL 1 GM TAB PO SCH ×2 (09:14→15:29)
--- NOTE | 2020-01-04 09:35 | XRay Report ---
XR chest 1V portable CLINICAL HISTORY: anemia COMPARISON STUDY: 01/01/2020 FINDINGS: The heart is borderline enlarged. There is no failure. There is no focal pulmonary consolid ation. There are no pleural effusions.[ IMPRESSION: No active disease in the chest. ACT 112: Negative or not required by law. Electronically signed by: David Cummings M.D. 01/04/2020 9:33 AM
--- NOTE | 2020-01-04 15:02 | Hospitalist Progress Note ---
Date of Service January 04, 2020 Assessment & Plan (1) Syncope and collapse: Presented with syncope, probably secondary to severe anemia and/or orthostasis. No recurrence. No significant arrhythmias noted via telemetry. Echo did not show any structural abnormalities. Carotid duplex demonstrated 50% stenosis within left ICA. Head CT negative. (2) Acute on chronic blood loss anemia: Hgb at time of admission 6.5. Acute / recurrent blood loss secondary to ulcerative colitis, aggravated by anticoagulant therapy. INR 2.7 day of admission. Received 3 units pRBC's. Hgb today 8.5. Doing well clinically. No need for additional transfusion. Hematochezia resolved by day of discharge. Follow H/H. (3) Ulcerative pancolitis: Management per GI. Discharge on: prednisone taper mesalamine Scheduled for follow-up colonoscopy in January. (4) T2DM (type 2 diabetes mellitus): Received Lantus / NovoLog per protocol. Discharge on usual regimen. (5) History of venous thromboembolism: History of DVT and PE. Management complicated because of intermittent GI bleeding. Warfarin held due to recurrent GI bleeding. S/P IVC filter. Hematochezia resolved by day of discharge and warfarin therapy resumed. (6) Carotid artery disease: Carotid duplex performed as part of evaluation for syncope. It demonstrated 50% stenosis left ICA. Follow (repeat duplex in 6-12 months). (7) DVT prophylaxis: Warfarin held due to GI bleeding. SCD's ordered. Ambulating. (8) Discharge planning issues: Discharge to home. Family Medicine follow-up with Dr. Templeton. Follow-up with Italia AGUAYO. Admission and Anticipated Discharge Date Admission Date: January 01, 2020 Subjective Doing well. No further rectal bleeding. Ambulating in hallway. No CP or SOB. No further lightheadedness or syncope. Anxious to be discharged. Physical Exam Constitutional: no acute distress Respiratory: no respiratory distress Auscultation: lungs clear to auscultation bilaterally Cardiovascular: Rate/Rhythm: regular rate and regular rhythm Vessels: no JVD Extremities: + edema (trace - 1+ pretibial); no calf tenderness Gastrointestinal (Abdomen): normal bowel sounds, soft, nontender, no hepatosplenomegaly Musculoskeletal: Extremities: no cyanosis Skin: no rashes, warm and dry Psychiatric: Orientation: alert and oriented x 3 Results & Data Results & Data ([facility]) Vital Signs (Past 12 Hours) Vital Signs Temp Pulse Pulse Resp BP BP Pulse Ox 01/04/20 12:05 36.5 C 69 18 121/64 98 01/04/20 08:00 77 01/04/20 07:57 36.9 C 77 18 133/69 96 01/04/20 04:56 36.5 C 79 18 120/68 95 Laboratory Results 01/04/20 06:20 01/04/20 06:20 (1) T2DM (type 2 diabetes mellitus) Diabetes mellitus longterm insulin use: unspecified dairy manager insulin use status Diabetes mellitus complication status: with other specified complication Qualified Code(s): E11.69 - Type 2 diabetes mellitus with other specified complication
--- NOTE | 2020-01-07 23:43 | Discharge Summary ---
Date of Service Date of Admission: 01/01/20 Date of Discharge: 01/04/20 Admission HPI Per Admitting Provider Patient is a 64 yo female with complicated PMHx including uncontrolled DM Type 2, hypothyroidism, dyslipidemia, HTN, recurrent C Diff infection, Chronic ulcerative colitis with rectal bleeding on and off and chronic diarrhea, CKD III, and hx of PE and DVT who presented to the ED with concern of syncopal episode at her apartment. The patient states that she was lightheaded and didn't feel well this morning, and then when we was leaving her apartment, she passed out and hit her face on the ground. Her nose started bleeding, and she believes that she was 'out' for a couple of minutes. She doesn't believe she his her head otherwise. No current headache. No N/V. She has chronic diarrhea, and she has had diarrhea over the past few days. She had a large episode or BRBPR yesterday and another small episode today. She has on and off red stools with black stools. She was recently placed on an iron supplement by her PCP. Last outpatient Hgb was 8.8 in October. She has complicated history with her ulcerative colitis/pancolitis. She was previously told that she may need colon resection if she would have another major bleed. She is due for repeat colonoscopy in January 2020. She has been on Entyvio for about 6 months. She was previously doing well with this medication with intermittent rectal bleeding. She does follow with GI as an outpatient. Since presentation, she was noted to have Hgb down to 6.5. Vitals are stable. WBC count slightly elevated at 11.9. No signs of infection on exam. Potassium slightly low at 3.4. She was receiving 1 unit PRBCs in the ED during exam. CT Head was negative for acute changes. Principal Diagnosis syncope secondary to acute blood loss OTHER ACUTE / NEW DIAGNOSES: acute blood loss anemia flare ulcerative colitis carotid artery disease (50% stenosis left ICA) Discharge Data Allergies Allergy/AdvReac Type Severity Reaction Status Date / Time aztreonam [From Azactam] Allergy Intermediate flushed Verified 01/01/20 18:41 /itching dorzolamide Allergy Unknown EYE LID Verified 01/01/20 18:41 SWELLING latanoprost Allergy Unknown EYE LID Verified 01/01/20 18:41 SWELLING Penicillins Allergy Unknown Unknown Verified 01/01/20 18:41 thimerosal Allergy Unknown Unknown Verified 01/01/20 18:41 timolol Allergy Unknown EYE LID Verified 01/01/20 18:41 SWELLING Consultations 01/01/20 18:54 ED Decision to Admit Stat 01/01/20 21:21 Consult Case Management - Discharge Planning Routine 01/02/20 08:00 Consult Gastroenterology Routine Ordered Studies 01/01/20 17:30 CT head/brain wo con Stat 01/02/20 US carotid doppler [facility] Course (1) Syncope and collapse: Presented with syncope, probably secondary to blood loss with severe anemia and/or orthostasis. No recurrence. No significant arrhythmias noted via telemetry. Echo did not show any structural abnormalities. Carotid duplex demonstrated 50% stenosis within left ICA. Head CT negative. (2) Acute on chronic blood loss anemia: Hgb at time of admission 6.5. Acute / recurrent blood loss secondary to ulcerative colitis, aggravated by anticoagulant therapy. INR 2.7 day of admission. Received 3 units pRBC's. Hgb today 8.5. Doing well clinically. No need for additional transfusion. Hematochezia resolved by day of discharge. Follow H/H. (3) Ulcerative pancolitis: Management per GI. Discharge on: prednisone taper mesalamine Scheduled for follow-up colonoscopy in January. (4) T2DM (type 2 diabetes mellitus): Received Lantus / NovoLog per protocol. Discharge on usual regimen. (5) History of venous thromboembolism: History of DVT and PE. Management complicated because of intermittent GI bleeding. Warfarin held due to recurrent GI bleeding. S/P IVC filter. Hematochezia resolved by day of discharge and warfarin therapy resumed. (6) Carotid artery disease: Carotid duplex performed as part of evaluation for syncope. It demonstrated 50% stenosis left ICA. Follow (repeat duplex in 6-12 months). (7) DVT prophylaxis: Warfarin held due to GI bleeding. SCD's ordered. Ambulating. (8) Discharge planning issues: Discharge to home. Family Medicine follow-up with Dr. Templeton. Follow-up with Italia AGUAYO. Total Time Total Time Spent Total Time Spent (In Minutes): 40 Discharge Plan Discharge Items Patient Disposition: Home - Self-Care Reason For Visit: passed out Discharge Diagnosis: severe anemia Activity: As commented below Activity Comment: Gradually increase activity as tolerated. Non-emergency contact: Primary Care Provider, Hospitalist and [employer] Call non-emergency contact if: you have any medication questions Follow-up/Referrals: Isaias Templeton MD [Primary Care Provider] - (01/11/2020 8:40 AM Isaias Templeton MD Family [facility] ) Diet: Carb Consistent or DM2 and Heart Healthy Addtl Attending Provider Instructions: MEDICATION CHANGES: prednisone taper with 5 mg pills: 8 pills (40 mg) daily for 7 days 6 pills (30 mg) daily for 7 days 4 pills (20 mg) daily for 7 days 3 pills (15 mg) daily for 7 days 2 pills (10 mg) daily for 7 days 1 pill (5 mg) daily for 7 days mesalamine 800 mg pills take 2 pills three times a day RECOMMENDATIONS FOR FOLLOW-UP: Keep appointment for colonoscopy as scheduled. Resume warfarin (Coumadin) with caution. Warfarin management with [facility]. OTHER INSTRUCTIONS: Seek medical attention if you have: * temperature above 101 * chest pain or trouble breathing * abdominal pain, nausea, vomiting * diarrhea, dark stools or bloody stools * any unanswered questions or concerns Call 911 if symptoms are severe. Please take good care of yourself. Call if you have any questions or problems. You can reach a [facility] hospitalist on duty at [facility] 24 hours a day by calling [phone]. My cell # is [phone]. Pending Studies at Discharge: No Stand-Alone Forms: My [facility], Smoking Cessation Medications and DC Order Prescriptions: New prednisone 5 mg tablet See Rx Instructions .ROUTE .COMPLEX Qty: 168 RF: 0 mesalamine 800 mg tablet,delayed release (DR/EC) 1,600 mg PO TID 30 Days Qty: 180 RF: 5 Continued furosemide [Lasix] 20 mg Tablet 20 mg PO QAM PRN (Reason: Edema) RF: 0 Entyvio 300 mg Recon Soln 300 mg IV DIRECTED RF: 0 Probiotic Acidophilus Biobeads 12.9 mg (2 billion cell) Tablet,Delayed Release (Dr/Ec) 1 tab PO TIDM RF: 0 sertraline [Zoloft] 50 mg Tablet 50 mg PO QAM RF: 0 fluocinonide 0.05 % Ointment 1 applic TOPICAL BID RF: 0 levothyroxine 75 mcg Tablet 75 mcg PO QAM RF: 0 cholecalciferol (vitamin D3) [Vitamin D3] 1,000 unit Tablet 1,000 unit PO QAM RF: 0 calcium citrate-vitamin D3 [Citracal-D3 Petites] 200 mg calcium -250 unit Tablet 1 tab PO QAM RF: 0 warfarin 4 mg tablet 2 - 4 mg PO DIRECTED RF: 0 pantoprazole 40 mg tablet,delayed release (DR/EC) 40 mg PO QAM RF: 0 atorvastatin 40 mg tablet 40 mg PO HS RF: 0 anastrozole 1 mg Tablet 1 mg PO QAM RF: 0 potassium chloride [Klor-Con M20] 20 mEq Tablet,Er Particles/Crystals 20 meq PO BID RF: 0 colestipol 1 gram Tablet 1 g PO TID RF: 0 trazodone 50 mg tablet 50 mg PO HS PRN (Reason: Sleep) RF: 0 triamcinolone acetonide 0.1 % cream 1 applic TOPICAL BID RF: 0 Lantus Solostar U-100 Insulin 100 unit/mL (3 mL) insulin pen 22 unit SUBCUT QAM RF: 0 Discharge Orders: Discharge Order (Routine); Ordered 01/04/20 Ordered By: Rahul Montana/Other Patient Handouts: Managing Type 2 Diabetes Admission Data Admit Date/Time: 01/01/20 19:32 Attending Provider: Rahul Barber Admit Provider: Mendoza Fajardo Primary Care Provider: Isaias Templeton Other Providers: Mendoza Fajardo ; Miguel Tsai ; Juilsa Montgomery Other Interventions: Discharge Summary Assessment (RN) Last Done: 01/04/20 15:19 DC Date/Time DO NOT enter until pt leaves facility: 01/04/20 16:10
== END 2020-01-04 16:10 | disposition home or self-care (01) | DRG 386 ==
LOC: ED 15:49 → 2S 19:32 → SUATTDRO 19:32 → 2S 20:53

== ENCOUNTER 2020-01-31 17:42 | Inpatient (IN) ==
[2020-01-31] MEDS ORDERED: SODIUM CHLORIDE 0.9% 1000ML 1,000 ML IV ONE (17:58)
[2020-01-31 18:11] LABS: Hematocrit (blood only) 27.3 % (37-47); Hemoglobin 8.4 g/dL (12.0-16.0); Mean Corpuscular Hemoglobin 21.8 pg (25-34); Mean Corpuscular Hgb Conc 30.8 g/dL (32-36); Mean Corpuscular Volume 70.7 fL (80-100); Mean Platelet Volume 8.3 fL (7.4-10.4); Platelet Count 551 K/uL (130-400); RDW Coefficient of Variation 23.5 % (11.5-14.5); RDW Standard Deviation 59.9 fL (36.4-46.3); Red Blood Count 3.86 M/uL (4.2-5.4); White Blood Count 11.22 K/uL (4.8-10.8)
[2020-01-31 18:29] LABS: Anisocytosis Present; Basophils # (auto) 0.01 K/uL (0-0.2); Basophils % (auto) 0.1 %; Eosinophils # (auto) 0.12 K/uL (0-0.5); Eosinophils % (auto) 1.1 %; Hypochromasia Present; Immature Granulocytes # (auto) 0.13 K/uL (0.00-0.02); Immature Granulocytes % (auto) 1.2 %; Lymphocytes # (auto) 1.26 K/uL (1.2-3.4); Lymphocytes % (auto) 11.2 %; Monocytes # (auto) 0.73 K/uL (0.11-0.59); Monocytes % (auto) 6.5 %; Neutrophils # (auto) 8.97 K/uL (1.4-6.5); Neutrophils % (auto) 79.9 %; Polychromasia 1+; Toxic Granulation 2+
[2020-01-31 18:30] LABS: Alanine Aminotransferase < 6 U/L (12-78); Aspartate Aminotransferase 5 U/L (15-37); BUN Creatinine Ratio 14.1 (10-20); Bilirubin Direct 0.2 mg/dl (0-0.2); Blood Urea Nitrogen 17 mg/dl (7-18); Calcium 8.4 mg/dl (8.5-10.1); Carbon Dioxide 20 mmol/L (21-32); Chloride 101 mmol/L (98-107); Est GFR (African American) 53.3; Glucose 249 mg/dl (70-99); INR 2.2 (0.9-1.1); Lipase 113 U/L (73-393); Magnesium 1.7 mg/dl (1.8-2.4); Partial Thromboplastin Ratio 1.3; Partial Thromboplastin Time 37.6 Seconds (21.0-31.0); Potassium 3.1 mmol/L (3.5-5.1); Prothrombin Time 22.3 Seconds (9.0-12.0); Sodium 133 mmol/L (136-145)
[2020-01-31 18:33] LABS: Alkaline Phosphatase 148 U/L (45-117); Bilirubin,Total 0.6 mg/dl (0.2-1); Total Protein 6.5 gm/dl (6.4-8.2)
[2020-01-31] MEDS ORDERED: PHYTONADIONE 5 MG TAB PO STA (18:40)
[2020-01-31] MEDS ORDERED: IOVERSOL 100ml IV PRN (19:22)
--- NOTE | 2020-01-31 19:56 | Emergency Department Note ---
History of Present Illness General Chief complaint: Diarrhea Stated complaint: diarrhea - bleeding - dizziness - dehydrated Time Seen by Provider: 01/31/20 17:52 History of Present Illness Provider complaint: Bloody diarrhea and abdominal pain Onset (ago): week(s) 1 Location: abdomen Radiation: non-radiation Severity: moderate Pain Consistency: + intermittent Maximum Pain Intensity: 5 Current Pain Intensity: 5 Quality: + other (Cramping) Relieved By: + none Exacerbated By: + none Associated symptoms: no chest pain, no fever/chills and no shortness of breath 64-year-old female with a history of inflammatory bowel disease on Coumadin presents to the emergency department for abdominal pain and bloody diarrhea. She reports been having bloody diarrhea for last week. She reports is been also having abdominal pain looking left lower quadrant. She describes pain is crampy in nature moderate in nature. No radiation of the pain. Patient denies any hematuria. She denies any fevers, cough, loss of taste or smell, or chest pain. Patient states she had blood transfusion 3 weeks ago because her INR levels were too high and her hemoglobin level is too low. Home Medications Home Medications Medication Instructions Recorded Confirmed Type calcium citrate-vitamin D3 1 tab PO QAM 05/12/18 01/31/20 History [Citracal-D3 Petites] cholecalciferol (vitamin D3) 1,000 unit PO QAM 05/12/18 01/31/20 History [Vitamin D3] levothyroxine 75 mcg PO QAM 05/12/18 01/31/20 History Entyvio 300 mg IV .Q6 MONTHS 03/22/19 01/31/20 History Probiotic Acidophilus Biobeads 1 tab PO TIDM 03/22/19 01/31/20 History furosemide [Lasix] 20 mg PO QAM 03/22/19 01/31/20 History sertraline [Zoloft] 50 mg PO QAM 03/22/19 01/31/20 History anastrozole 1 mg PO QAM 07/21/19 01/31/20 History atorvastatin 40 mg PO HS 07/21/19 01/31/20 History colestipol 1 g PO TID 07/21/19 01/31/20 History pantoprazole 40 mg PO QAM 07/21/19 01/31/20 History potassium chloride [Klor-Con M20] 20 meq PO BID 07/21/19 01/31/20 History warfarin 2 - 4 mg PO DIRECTED 07/21/19 01/31/20 History Lantus Solostar U-100 Insulin 22 unit SUBCUT QAM 01/01/20 01/31/20 History trazodone 50 mg PO HS PRN 01/01/20 01/31/20 History mesalamine 1,600 mg PO TID 30 Days #180 tab 01/04/20 01/31/20 Rx prednisone See Rx Instructions .ROUTE 01/04/20 01/31/20 Rx .COMPLEX #168 tab dicyclomine 10 mg PO AMHS 01/31/20 01/31/20 History polysaccharide iron complex 150 mg PO BID 01/31/20 01/31/20 History [Ferrex 150] Allergies Allergy/AdvReac Type Severity Reaction Status Date / Time aztreonam [From Azactam] Allergy Intermediate flushed Verified 01/31/20 21:07 /itching dorzolamide Allergy Unknown EYE LID Verified 01/31/20 21:07 SWELLING latanoprost Allergy Unknown EYE LID Verified 01/31/20 21:07 SWELLING Penicillins Allergy Unknown Rash Verified 01/31/20 21:07 thimerosal Allergy Unknown Unknown Verified 01/31/20 21:07 timolol Allergy Unknown EYE LID Verified 01/31/20 21:07 SWELLING Past Med/Surg History Medical History (Updated 01/31/20 @ 22:02 by Ari Pyle) Acute hyponatremia (Inactive) Acute kidney injury (Inactive) Anemia (Inactive) Breast cancer, right (Chronic) 2012--SX & RADIATION, NO CHEMO C. difficile diarrhea (Inactive) Carotid artery disease 50% stenosis left ICA per duplex 01/02/20 Clostridium difficile diarrhea (Inactive) Colitis (Inactive) Crohns disease (Chronic) Depression (Inactive) Diabetes mellitus type 2, controlled (Inactive) Diverticulitis large intestine (Inactive) DVT (deep venous thrombosis) (Inactive) DVT (deep venous thrombosis) (Inactive) BILT LEGS 03/2018 GERD (gastroesophageal reflux disease) (Chronic) GI bleed (Inactive) History of pulmonary embolus (PE) (Chronic) "dx in 2001, unprovoked" History of recent steroid use (Inactive) History of recent steroid use (Inactive) History of venous thromboembolism HLD (hyperlipidemia) (Chronic) HTN (hypertension) (Chronic) Hypertension (Inactive) Hypoglycemia associated with diabetes (Inactive) Hypokalemia (Inactive) Hypomagnesemia (Inactive) Hypomagnesemia (Inactive) Hypothyroidism (Chronic) 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) "Abnormal right breast mammogram Biopsy-positive for DCIS Status post lumpectomy with no residual tumor stage pTis NXMX Estrogen receptor positive, progesterone receptor positive Status post completion of radiation therapy 02/22/2013 received 3850 cGy utilizing accelerated partial breast treatment " Leukocytosis (leucocytosis) (Inactive) Obesity (BMI 30-39.9) (Chronic) Pancolitis (Acute) Pulmonary embolism Sepsis (Inactive) 03/2018 Severe sepsis (Inactive) SIRS (systemic inflammatory response syndrome) (Inactive) T2DM (type 2 diabetes mellitus) (Chronic) UTI (urinary tract infection) (Inactive) Surgical History H/O breast biopsy (Chronic) 2012--RIGHT MALIGNANT H/O lumpectomy History of appendectomy (Resolved) History of colonoscopy (Chronic) History of lumpectomy of right breast (Resolved) "+ HERBIE ER/UT + in 10/2012 s/p RT" History of tonsillectomy and adenoidectomy (Chronic) Hx of appendectomy S/P insertion of IVC (inferior vena caval) filter (Chronic) 03/29/[address] BUSTAMANTE Status post glaucoma surgery (Chronic) BILT Social History Smoking Status: Never smoker Second Hand Exposure: No; Hx Alcohol Use: No Hx Substance Use: No Preferred Language: Khmer Communication Ability: Effective Visual Impairment: No Limitations Hearing Ability: Normal [employer] Worker Required: No Beliefs That Will Affect Care: None marital status: Single Current Living Situation: Alone Current Living Situation Comment: alone Feels Safe at Home: Yes Review of Systems A total of 10 systems reviewed and were otherwise negative Physical Exam Vital Signs Vital Signs - 24 hr 01/31/20 17:44 01/31/20 17:59 01/31/20 18:00 Temperature 37.0 C Temperature Source Oral Pulse Rate 150 H 109 H 113 H Pulse Rate from SpO2 Sensor Respiratory Rate 20 22 20 Respiratory Effort / Characteristics Non-Labored Respiratory Depth Normal Blood Pressure 97/61 L Blood Pressure Mean 73 Pulse Oximetry 99 96 Oxygen Delivery Method Room Air Room Air Sepsis Recent Fever Within 48 Hours No Sepsis New/Unexplained Change in Mental Status No Sepsis Action Taken by Nursing No Action Required 01/31/20 18:30 01/31/20 18:59 01/31/20 19:00 Temperature Temperature Source Pulse Rate 102 H 84 85 Pulse Rate from SpO2 Sensor 88 85 Respiratory Rate 24 15 21 Respiratory Effort / Characteristics Respiratory Depth Blood Pressure 115/64 125/75 Blood Pressure Mean 74 88 Pulse Oximetry 98 99 Oxygen Delivery Method Sepsis Recent Fever Within 48 Hours Sepsis New/Unexplained Change in Mental Status Sepsis Action Taken by Nursing 01/31/20 19:02 01/31/20 19:33 01/31/20 20:00 Temperature Temperature Source Pulse Rate 78 81 81 Pulse Rate from SpO2 Sensor 76 81 81 Respiratory Rate 19 20 22 Respiratory Effort / Characteristics Respiratory Depth Blood Pressure 131/73 122/68 Blood Pressure Mean 107 90 Pulse Oximetry 99 99 99 Oxygen Delivery Method Sepsis Recent Fever Within 48 Hours Sepsis New/Unexplained Change in Mental Status Sepsis Action Taken by Nursing 01/31/20 20:19 01/31/20 20:30 01/31/20 21:00 Temperature Temperature Source Pulse Rate 80 78 97 H Pulse Rate from SpO2 Sensor 83 81 92 H Respiratory Rate 19 19 20 Respiratory Effort / Characteristics Respiratory Depth Blood Pressure 119/74 108/64 108/70 Blood Pressure Mean 100 91 84 Pulse Oximetry 95 99 100 Oxygen Delivery Method Sepsis Recent Fever Within 48 Hours Sepsis New/Unexplained Change in Mental Status Sepsis Action Taken by Nursing Physical Exam GENERAL: She is oriented to person, place, and time. She appears well-developed and well-nourished. She does not appear distressed. HENT: Exam performed. -Head: Normocephalic and atraumatic. -Right Ear: External ear normal. No mastoid tenderness. -Left Ear: External ear normal. No mastoid tenderness. -Mouth/Throat: The oropharynx is clear and moist. No trismus in the jaw. No dental abscesses or uvula swelling. No oropharyngeal exudate or tonsillar abscesses. EYES: Conjunctivae and EOM are normal. Pupils are equal, round, and reactive to light. Right eye exhibits no discharge. Left eye exhibits no discharge. No scleral icterus. NECK: Normal range of motion. Neck supple. No JVD present. No spinous process tenderness present. No carotid bruit present. No rigidity. No tracheal deviation and normal range of motion present. No Brudzinski's sign and no Kernig's sign noted. CV: Normal rate, regular rhythm, normal heart sounds and intact distal pulses. There is no peripheral edema. Palpable radial pulses bue. PULM/CHEST: Effort normal and breath sounds normal. No respiratory distress. No stridor. She has no wheezes. She has no rales. -Chest Wall: She exhibits no tenderness. ABD: The abdomen is soft. Bowel sounds are normal. She has no distension. No mass is present. There is tenderness to palpation of the left lower quadrant. There is no rebound, no guarding, no Mccormack's sign and no tenderness at McBurney's point. Rovsig negative Rectal: Bright red blood per rectum MUSC/SKEL: Normal range of motion. There is no peripheral edema, tenderness or deformity. LYMPH: No cervical adenopathy. NEURO: She is alert and oriented to person, place, and time. She has normal s trength. No cranial nerve deficit or sensory deficit. Coordination and gait normal. GCS eye subscore is 4. GCS verbal subscore is 5. GCS motor subscore is 6. Cerebellar tests wnl. SKIN: Skin is warm and dry. She is not diaphoretic. PSYCH: She has a normal mood and affect. Behavior is normal. Judgment and thought content normal. Course Course 1751: The patient was evaluated in room C3. A complete history and physical exam was performed. Cardiac monitoring: An order was placed for continuous cardiac monitoring. The monitor shows a rate of 110 with sinus tachycardia rhythm 1844: Vital signs stable. Patient's hemoglobin 8.4. INR 2.2. Discussed with Dr. Lama lee, who recommends vitamin K 5 mg orally. 2006: Vital signs stable. CT of the abdomen consistent with previous diagnosis of colitis. It also does incidentally show a multifocal pneumonia. Patient denies any cough or fevers, no loss of taste or smell. Discussed with Dr. Snyder, we will obtain a CT of the chest without contrast. 2044: Vital signs stable. Patient denies any fevers or cough. Patient CT of the chest shows multifocal or basilar and peripheral consolidation with groundglass opacity. Nonspecific but favors multifocal pneumonia versus neoplastic etiology versus inflammatory etiology versus possible septic emboli. Patient had a negative COVID-19 swab done on January 02, 2020. Patient will be treated with antibiotics, cefepime, azithromycin, and vancomycin. Dr. [facility] hospitalist to admit the patient. Administered Medications Vancomycin HCl 1,250 mg/ (Sodium Chloride) 525 mls @ 200 mls/hr IV NOW ONE Stop: 01/31/20 23:17 Last Admin: 01/31/20 20:54 Dose: 200 mls/hr Documented by: [id number] Ioversol (Optiray 320 100ml) 93 ml IV ONCE PRN PRN Reason: Interaction Checking Stop: 02/04/20 19:21 Last Admin: 01/31/20 19:23 Dose: 93 ml Documented by: [id number] Discontinued Medications Azithromycin (Zithromax) 500 mg PO NOW ONE Stop: 01/31/20 20:41 Last Admin: 01/31/20 20:54 Dose: 500 mg Documented by: [id number] Sodium Chloride (Nss 1000ml) 1,000 mls @ 999 mls/hr IV .Q1H1M ONE Stop: 01/31/20 18:58 Last Infusion: 01/31/20 19:47 Dose: 0 mls/hr Documented by: [id number] Admin: 01/31/20 18:06 Dose: 999 mls/hr Documented by: [id number] Cefepime HCl (Maxipime) 2,000 mg in 20 mls @ 5 mls/min IV NOW STA; Protocol Stop: 01/31/20 20:43 Last Admin: 01/31/20 21:00 Dose: 5 mls/min Documented by: [id number] Phytonadione (Mephyton) 5 mg PO NOW STA Stop: 01/31/20 18:41 Last Admin: 01/31/20 18:59 Dose: 5 mg Documented by: [id number] Medical Decision Making Laboratory Data Result diagrams: 01/31/20 18:02 01/31/20 18:02 Lab Results 01/31/20 01/31/20 01/31/20 Range/Units 18:02 18:02 18:02 WBC 11.22 H (4.8-10.8) K/uL RBC 3.86 L (4.2-5.4) M/uL Hgb 8.4 L (12.0-16.0) g/dL Hct 27.3 L (37-47) % MCV 70.7 L (80-100) fL MCH 21.8 L (25-34) pg MCHC 30.8 L (32-36) g/dL RDW Std Deviation 59.9 H (36.4-46.3) fL RDW Coeff of Conchis 23.5 H (11.5-14.5) % Plt Count 551 H (130-400) K/uL MPV 8.3 (7.4-10.4) fL Immature Gran % (Auto) 1.2 % Neut % (Auto) 79.9 % Lymph % (Auto) 11.2 % [place] % (Auto) 6.5 % Eos % (Auto) 1.1 % Baso % (Auto) 0.1 % Neut # (Auto) 8.97 H (1.4-6.5) K/uL Lymph # (Auto) 1.26 (1.2-3.4) K/uL [place] # (Auto) 0.73 H (0.11-0.59) K/uL Eos # (Auto) 0.12 (0-0.5) K/uL Baso # (Auto) 0.01 (0-0.2) K/uL Immature Gran # (Auto) 0.13 H (0.00-0.02) K/uL Toxic Granulation 2+ Polychromasia 1+ Hypochromasia Present Anisocytosis Present PT 22.3 H (9.0-12.0) Seconds INR 2.2 H (0.9-1.1) APTT 37.6 H (21.0-31.0) Seconds PTT Ratio 1.3 Sodium (136-145) mmol/L Potassium (3.5-5.1) mmol/L Chloride (98-107) mmol/L Carbon Dioxide (21-32) mmol/L Anion Gap (3-11) BUN (7-18) mg/dl Creatinine (0.6-1.2) mg/dl Est Cr Clr Drug Dosing Est GFR ( Amer) Est GFR (Non-Af Amer) BUN/Creatinine Ratio (10-20) Glucose (70-99) mg/dl Calcium (8.5-10.1) mg/dl Magnesium (1.8-2.4) mg/dl Total Bilirubin (0.2-1) mg/dl Direct Bilirubin (0-0.2) mg/dl AST (15-37) U/L ALT (12-78) U/L Alkaline Phosphatase (45-117) U/L Total Protein (6.4-8.2) gm/dl Albumin (3.4-5.0) gm/dl Lipase (73-393) U/L Blood Type AB Negative Antibody Screen NEGATIVE 01/31/20 Range/Units 18:02 WBC (4.8-10.8) K/uL RBC (4.2-5.4) M/uL Hgb (12.0-16.0) g/dL Hct (37-47) % MCV (80-100) fL MCH (25-34) pg MCHC (32-36) g/dL RDW Std Deviation (36.4-46.3) fL RDW Coeff of Conchis (11.5-14.5) % Plt Count (130-400) K/uL MPV (7.4-10.4) fL Immature Gran % (Auto) % Neut % (Auto) % Lymph % (Auto) % [place] % (Auto) % Eos % (Auto) % Baso % (Auto) % Neut # (Auto) (1.4-6.5) K/uL Lymph # (Auto) (1.2-3.4) K/uL [place] # (Auto) (0.11-0.59) K/uL Eos # (Auto) (0-0.5) K/uL Baso # (Auto) (0-0.2) K/uL Immature Gran # (Auto) (0.00-0.02) K/uL Toxic Granulation Polychromasia Hypochromasia Anisocytosis PT (9.0-12.0) Seconds INR (0.9-1.1) APTT (21.0-31.0) Seconds PTT Ratio Sodium 133 L (136-145) mmol/L Potassium 3.1 L (3.5-5.1) mmol/L Chloride 101 (98-107) mmol/L Carbon Dioxide 20 L (21-32) mmol/L Anion Gap 11.0 (3-11) BUN 17 (7-18) mg/dl Creatinine 1.23 H (0.6-1.2) mg/dl Est Cr Clr Drug Dosing Not Reportable Est GFR ( Amer) 53.3 Est GFR (Non-Af Amer) 46.0 BUN/Creatinine Ratio 14.1 (10-20) Glucose 249 H (70-99) mg/dl Calcium 8.4 L (8.5-10.1) mg/dl Magnesium 1.7 L (1.8-2.4) mg/dl Total Bilirubin 0.6 (0.2-1) mg/dl Direct Bilirubin 0.2 (0-0.2) mg/dl AST 5 L (15-37) U/L ALT < 6 L (12-78) U/L Alkaline Phosphatase 148 H (45-117) U/L Total Protein 6.5 (6.4-8.2) gm/dl Albumin 2.0 L (3.4-5.0) gm/dl Lipase 113 (73-393) U/L Blood Type Antibody Screen Imaging Data Radiologist's Impression: CT OF THE ABDOMEN AND PELVIS WITH CONTRAST CLINICAL HISTORY: Left lower quadrant abdominal pain. History of Crohn's disease. COMPARISON STUDY: CT of the abdomen and pelvis March 24, 2019. KUB January 02, 2020. TECHNIQUE: Following IV administration of 93 mL of Optiray-320, axial images of the abdomen and pelvis were obtained from the lung bases to the proximal femurs. Images were reviewed in the axial, sagittal, and coronal planes. IV contrast was administered without complication. Automated exposure control was utilized for the study. A dose lowering technique was utilized adhering to the principles of ALARA. CT DOSE: 384.31 mGy.cm FINDINGS: Imaged portions of the lower chest demonstrate multifocal consolidation including a 4.8 cm subpleural focus within the right lower lobe and a 2.5 cm nodular focus within the medial basilar segment right lower lobe. No pneumatosis, free air or portal venous gas is present. A 2.9 cm gallstone within the gallbladder is noted. There is no convincing evidence for acute cholecystitis. The liver, spleen, adrenal glands and pancreas are unremarkable. Note is made of a cyst within the upper pole the left kidney. A 1.1 cm lesion within the midpole the left kidney is unchanged since CT of June 28, 2018. This measures above water attenuation. This could reflect a hyperdense cyst within correlating with prior noncontrast CT. IVC filters in place. There is no evidence for a bowel obstruction. Note is made of wall thickening with pericolonic infiltration and evidence for hyperemia involving the axial, sigmoid colon, descending colon and mid to distal transverse colon. Somewhat similar findings were shown on CT of March 24, 2019 however the transverse colon is now involved. The appendix is not visualized. There is no abscess. There is no free air. No lymphadenopathy is present. There are no suspicious osseous lesions. Major vasculature is patent. IMPRESSION: 1. Multifocal consolidation within visualized portions of the lower lungs. The findings favor multifocal pneumonia. No cavitation to strongly suggest septic emboli although this remains within the differential. A follow-up chest CT in one month to ensure resolution is recommended. 2. Wall thickening and pericolic infiltration with evidence for hyperemia involving the mid to distal transverse colon, descending colon, sigmoid colon and rectum. Similar findings shown on prior exam with interval involvement of the transverse colon. These findings suggest active inflammatory bowel disease. No abscess. No bowel obstruction. No free air. 3. No change in an indeterminate 1.1 cm left renal lesion. Given stability, this may reflect a hyperdense cyst. ACT 112: Negative or not required by law. Electronically signed by: Douglas Snyder M.D. 01/31/2020 7:56 PM Dictated: 01/31/201942 CT OF THE CHEST WITHOUT IV CONTRAST CLINICAL HISTORY: Pneumonia. COMPARISON STUDY: Chest radiograph April 18, 2018. Chest radiograph January 04, 2020. CT DOSE: 234.25 mGy.cm TECHNIQUE: Axial images of the chest were obtained without IV contrast. Images were reviewed in the axial, sagittal, and coronal planes. IV contrast was not administered for this examination. Automated exposure control was utilized for the study. A dose lowering technique was utilized adhering to the principles of ALARA. FINDINGS: No enlarged axillary, mediastinal or hilar lymph nodes are present. Mild cardiomegaly is noted. There is moderate coronary artery calcification. There is no pericardial effusion. No pneumothorax or pleural effusion is noted. The central airways are patent. Note is made of multiple focal nodular airspace opacities, several of which have associated groundglass opacity. The largest is a 4.9 cm right lower lobe focus. These are predominantly within the bilateral lower lobes. There is a 9 mm focus within the right middle lobe. These are predominantly subpleural in location. There is no cavitation. Bony thorax is unremarkable. Upper abdomen is unremarkable. IMPRESSION: Multifocal basilar and peripheral predominant consolidation, the largest of which is a 4.9 cm right lower lobe focus of consolidation with groundglass opacity. The appearance is nonspecific but favors multifocal pneumonia. No cavitation to strongly suggest septic emboli however this remains within the differential. An inflammatory process could appear similar. A neoplastic etiology is considered much less likely however a follow-up chest CT in one month to ensure resolution is recommended. ACT 112: Negative or not required by law. Electronically signed by: Douglas Snyder M.D. 01/31/2020 8:27 PM Dictated: 01/31/202018 Transcribed: 01/31/202018 Transcribed: 01/31/201942 ECG Data Indication: + weakness Rate (beats per minute): 111 Rhythm: + sinus tachycardia ECG Intervals/blocks: + Normal QRS, + Normal UT and + Normal QT-c ECG ST segments: + Normal ST segments MDM Narrative 1751: The patient was evaluated in room C3. A complete history and physical exam was performed. Cardiac monitoring: An order was placed for continuous cardiac monitoring. The monitor shows a rate of 110 with sinus tachycardia rhythm 1844: Vital signs stable. Patient's hemoglobin 8.4. INR 2.2. Discussed with Dr. Lama lee, who recommends vitamin K 5 mg orally. 2006: Vital signs stable. CT of the abdomen consistent with previous diagnosis of colitis. It also does incidentally show a multifocal pneumonia. Patient denies any cough or fevers, no loss of taste or smell. Discussed with Dr. Snyder, we will obtain a CT of the chest without contrast. 2044: Vital signs stable. Patient denies any fevers or cough. Patient CT of the chest shows multifocal or basilar and peripheral consolidation with groundglass opacity. Nonspecific but favors multifocal pneumonia versus neoplastic etiology versus inflammatory etiology versus possible septic emboli. Patient had a negative COVID-19 swab done on January 02, 2020. Patient will be treated with antibiotics, cefepime, azithromycin, and vancomycin. Dr. [facility] to [facility] the patient. Impression & Plan GIB (gastrointestinal bleeding), Pneumonia Discharge Plan Visit Data Chief Complaint: Diarrhea Stated Complaint: diarrhea - bleeding - dizziness - dehydrated ED Provider: Ari Pyle Discharge Problem: GIB (gastrointestinal bleeding), Pneumonia Forms Stand Alone Forms: [facility] [employer] Prescriptions Prescriptions: No Action furosemide [Lasix] 20 mg Tablet 20 mg PO QAM RF: 0 Entyvio 300 mg Recon Soln 300 mg IV .Q6 MONTHS RF: 0 Probiotic Acidophilus Biobeads 12.9 mg (2 billion cell) Tablet,Delayed Release (Dr/Ec) 1 tab PO TIDM RF: 0 sertraline [Zoloft] 50 mg Tablet 50 mg PO QAM RF: 0 levothyroxine 75 mcg Tablet 75 mcg PO QAM RF: 0 cholecalciferol (vitamin D3) [Vitamin D3] 1,000 unit Tablet 1,000 unit PO QAM RF: 0 calcium citrate-vitamin D3 [Citracal-D3 Petites] 200 mg calcium -250 unit Tablet 1 tab PO QAM RF: 0 warfarin 4 mg tablet 2 - 4 mg PO DIRECTED RF: 0 pantoprazole 40 mg tablet,delayed release (DR/EC) 40 mg PO QAM RF: 0 atorvastatin 40 mg tablet 40 mg PO HS RF: 0 anastrozole 1 mg Tablet 1 mg PO QAM RF: 0 potassium chloride [Klor-Con M20] 20 mEq Tablet,Er Particles/Crystals 20 meq PO BID RF: 0 colestipol 1 gram Tablet 1 g PO TID RF: 0 trazodone 50 mg tablet 50 mg PO HS PRN (Reason: Sleep) RF: 0 Lantus Solostar U-100 Insulin 100 unit/mL (3 mL) insulin pen 22 unit SUBCUT QAM RF: 0 prednisone 5 mg tablet See Rx Instructions .ROUTE .COMPLEX Qty: 168 RF: 0 mesalamine 800 mg tablet,delayed release (DR/EC) 1,600 mg PO TID 30 Days Qty: 180 RF: 5 polysaccharide iron complex [Ferrex 150] 150 mg iron capsule 150 mg PO BID RF: 0 dicyclomine 10 mg capsule 10 mg PO AMHS RF: 0 Referrals Referrals: Isaias Templeton MD [Primary Care Provider] - Discharge Problem: GIB (gastrointestinal bleeding) Qualifiers: GI bleed type/associated pathology: unspecified gastrointestinal hemorrhage type Qualified Code(s): K92.2 - Gastrointestinal hemorrhage, unspecified Pneumonia Qualifiers: Pneumonia type: due to unspecified organism Laterality: right Lung location: unspecified part of lung Qualified Code(s): J18.9 - Pneumonia, unspecified organism
--- NOTE | 2020-01-31 19:57 | CT Scan Report ---
CT OF THE ABDOMEN AND PELVIS WITH CONTRAST CLINICAL HISTORY: Left lower quadrant abdominal pain. History of Crohn's disease. COMPARISON STUDY: CT of the abdomen and pelvis March 24, 2019. KUB January 02, 2020. TECHNIQUE: Following IV administration of 93 mL of Optiray-320, axial images of the abdomen and pelvi s were obtained from the lung bases to the proximal femurs. Images were reviewed in the axial, sagitt al, and coronal planes. IV contrast was administered without complication. Automated exposure contro l was utilized for the study. A dose lowering technique was utilized adhering to the principles of A AWAIS. CT DOSE: 384.31 mGy.cm FINDINGS: Imaged portions of the lower chest demonstrate multifocal consolidation including a 4.8 cm subpleural focus within the right lower lobe and a 2.5 cm nodular focus within the medial basilar seg ment right lower lobe. No pneumatosis, free air or portal venous gas is present. A 2.9 cm gallstone w ithin the gallbladder is noted. There is no convincing evidence for acute cholecystitis. The liver, s pleen, adrenal glands and pancreas are unremarkable. Note is made of a cyst within the upper pole the left kidney. A 1.1 cm lesion within the midpole the left kidney is unchanged since CT of June. This measures above water attenuation. This could reflect a hyperdense cyst within correlatin g with prior noncontrast CT. IVC filters in place. There is no evidence for a bowel obstruction. Note is made of wall thickening with pericolonic infiltration and evidence for hyperemia involving the ax ial, sigmoid colon, descending colon and mid to distal transverse colon. Somewhat similar findings we re shown on CT of March 24, 2019 however the transverse colon is now involved. The appendix is no t visualized. There is no abscess. There is no free air. No lymphadenopathy is present. There are no suspicious osseous lesions. Major vasculature is patent. IMPRESSION: 1. Multifocal consolidation within visualized portions of the lower lungs. The findings favor multifo zee pneumonia. No cavitation to strongly suggest septic emboli although this remains within the diffe rential. A follow-up chest CT in one month to ensure resolution is recommended. 2. Wall thickening and pericolic infiltration with evidence for hyperemia involving the mid to distal transverse colon, descending colon, sigmoid colon and rectum. Similar findings shown on prior exam w ith interval involvement of the transverse colon. These findings suggest active inflammatory bowel di sease. No abscess. No bowel obstruction. No free air. 3. No change in an indeterminate 1.1 cm left renal lesion. Given stability, this may reflect a hyperd ense cyst. ACT 112: Negative or not required by law. Electronically signed by: Douglas Snyder M.D. 01/31/2020 7:56 PM
--- NOTE | 2020-01-31 20:28 | CT Scan Report ---
CT OF THE CHEST WITHOUT IV CONTRAST CLINICAL HISTORY: Pneumonia. COMPARISON STUDY: Chest radiograph April 18, 2018. Chest radiograph January 04, 2020. CT DOSE: 234.25 mGy.cm TECHNIQUE: Axial images of the chest were obtained without IV contrast. Images were reviewed in the axial, sagittal, and coronal planes. IV contrast was not administered for this examination. Automat ed exposure control was utilized for the study. A dose lowering technique was utilized adhering to t he principles of ALARA. FINDINGS: No enlarged axillary, mediastinal or hilar lymph nodes are present. Mild cardiomegaly is n oted. There is moderate coronary artery calcification. There is no pericardial effusion. No pneumotho rax or pleural effusion is noted. The central airways are patent. Note is made of multiple focal nodu lar airspace opacities, several of which have associated groundglass opacity. The largest is a 4.9 cm right lower lobe focus. These are predominantly within the bilateral lower lobes. There is a 9 mm fo cus within the right middle lobe. These are predominantly subpleural in location. There is no cavitat ion. Bony thorax is unremarkable. Upper abdomen is unremarkable. IMPRESSION: Multifocal basilar and peripheral predominant consolidation, the largest of which is a 4 .9 cm right lower lobe focus of consolidation with groundglass opacity. The appearance is nonspecific but favors multifocal pneumonia. No cavitation to strongly suggest septic emboli however this remain s within the differential. An inflammatory process could appear similar. A neoplastic etiology is con sidered much less likely however a follow-up chest CT in one month to ensure resolution is recommende d. ACT 112: Negative or not required by law. Electronically signed by: Douglas Snyder M.D. 01/31/2020 8:27 PM
[2020-01-31] MEDS ORDERED: CEFEPIME 2,000 MG/20 ML VIAL IV STA (20:40)
[2020-01-31] MEDS ORDERED: VANCOMYCIN HCL 1,250 MG in SODIUM CHLORIDE 0.9% 500 ML IV ONE (20:40)
[2020-01-31] MEDS ORDERED: AZITHROMYCIN 250 MG TAB PO ONE (20:40)
[2020-02-01] MEDS ORDERED: MAGNESIUM SULFATE / D5W 1 GM/100 ML BAG IV ONE (00:05)
[2020-02-01] MEDS ORDERED: ACETAMINOPHEN 325 MG TAB PO PRN (00:05)
[2020-02-01] MEDS ORDERED: NITROGLYCERIN SL 0.4 MG/TAB TAB SL PRN (00:05)
[2020-02-01] MEDS ORDERED: ONDANSETRON INJ 2 MG/ML 2 ML VIAL IV PRN (00:05)
[2020-02-01] MEDS ORDERED: POTASSIUM CHLORIDE 20 MEQ/15 ML UDC PO STA (00:05)
[2020-02-01] MEDS ORDERED: TRAZODONE HCL 50 MG TAB PO PRN (00:05)
[2020-02-01] MEDS ORDERED: methylPREDNISolone 20 MG in SYRINGE 0 ML IV STA (00:12)
[2020-02-01] MEDS: SODIUM CHLORIDE 0.9% 1000ML 1,000 ML IV SCH ×3 (00:19→09:00)
[2020-02-01] MEDS ORDERED: GLUCOSE 10 TABS/TUBE PO PRN (00:45)
[2020-02-01] MEDS ORDERED: DEXTROSE 50% 50 ML SYRINGE IV PRN (00:45)
[2020-02-01] MEDS ORDERED: GLUCAGON FOR INJ 1 MG VIAL SQ PRN (00:45)
[2020-02-01] MEDS ORDERED: CARBOHYDRATES FOR HYPOGLYCEMIA PO PRN (00:45)
[2020-02-01] MEDS ORDERED: GLUCOSE 40% GEL 15 GM TUBE PO PRN (00:45)
--- NOTE | 2020-02-01 00:59 | History and Physical Report ---
DATE OF ADMISSION: 01/31/2020 CHIEF COMPLAINT: Abdominal pain, diarrhea, and blood in the stools. HISTORY OF PRESENT ILLNESS: A 64-year-old female with past medical history significant for Crohn's disease who was recently in the hospital for Crohn's flare and discharged on 01/04/2020 with prednisone taper, history of diabetes, hypothyroidism, hyperlipidemia, history of DVT and pulmonary embolism, on Coumadin, history of pancolitis, history of recurrent C. diff, history of chronic kidney disease stage III. The patient lives alone, walks without support. The patient states since discharge she is on prednisone taper, but she says the symptoms slowly increased; in these last 4-5 days, she is having several episodes of bloody bowel movements and abdominal discomfort in the lower abdomen and nausea. Currently, abdominal pain is about 3/10 in severity. Denies any fever, chills. No chest pain, no shortness of breath, no cough, no headache, no blurred vision, no runny nose, no sore throat, no difficulty swallowing.Denies loss of sense of smell or taste. She is feeling very weak and tired and dizzy because she is getting dehydrated . Currently resting comfortably and hemodynamically stable. Her hemoglobin is 8.4, it was 8.5 at the time of discharge. Creatinine is 1.2, close to baseline. CT scan showed again colitis and also shows multifocal consolidation in the lower lung. CT chest shows multifocal pneumonia. ALLERGIES: AZACTAM, DORZOLAMIDE, LATANOPROST, PENICILLINS, THIMEROSAL, TIMOLOL. PAST MEDICAL HISTORY: As mentioned above. PAST SURGICAL HISTORY: Biopsy of the breast, multiple colonoscopies, appendectomy, tonsillectomy. MEDICATIONS: The patient is on anastrozole 1 mg p.o. a.m., atorvastatin 40 mg at bedtime, calcium citrate plus vitamin D 1 tablet p.o. a.m., vitamin D 1000 units p.o. a.m., colestipol 1 g p.o. t.i.d., dicyclomine 10 mg p.o. a.m. and bedtime, Entyvio 300 mg IV q. 6 months, Lasix 20 mg p.o. a.m., Lantus 20 units a.m., levothyroxine 75 mcg p.o. a.m., mesalamine 600 mg p.o. t.i.d., Protonix 40 mg p.o. daily, Ferrex 150 mg p.o. b.i.d., potassium chloride 20 mEq p.o. b.i.d., prednisone tapering dose, probiotics 1 tablet p.o. t.i.d., Zoloft 50 mg p.o. a.m., trazodone 50 mg p.o. at bedtime p.r.n., Coumadin as directed. FAMILY HISTORY: Significant for mother has asthma, skin cancer, diabetes, and heart disorder; father has diabetes, [place]; aunt has pancreatic cancer, diabetes, thyroid disorder; sister has Crohn's disease, diabetes. SOCIAL HISTORY: Lives alone. Sister lives close by. No smoking, no alcohol, no drug use. REVIEW OF SYSTEMS: As per HPI. Rest of the review of systems negative. PHYSICAL EXAMINATION: GENERAL: The patient is alert and oriented, not in acute distress. VITAL SIGNS: Temperature 37, pulse 85, respiratory rate 17, blood pressure 108/67, oxygen 96% on room air. HEENT: No pallor, no icterus. Pupils equal, round, and reactive to light. NECK: No JVD, no neck masses, no carotid bruits. CARDIOVASCULAR: S1, S2 heard. Regular rate and rhythm, no murmur, no gallop. RESPIRATORY SYSTEM: Normal AP diameter. No accessory muscle use. No wheezing, no crackles. ABDOMEN: Soft, bowel sounds present. Mild discomfort in the left lower quadrant. No guarding, no rigidity, no distention. CENTRAL NERVOUS SYSTEM: Cranial nerves II-XII grossly intact. Nonfocal. EXTREMITIES: No edema, no erythema. LABORATORY DATA: WBC 11.2, hemoglobin 8.4, hematocrit 27.3, platelets 551. PT 22.3, INR 2.2, APTT 37.6. Sodium 133, potassium 3.1, chloride 101, bicarbonate 20, BUN 17, creatinine 1.2, serum glucose 8.4, magnesium 1.7, total bilirubin 0.6, direct bilirubin 0.2, AST 5, ALT less than 6, alkaline phosphatase 148. Lipase 113. IMAGING DATA: CT of abdomen and pelvis shows multifocal consolidation seen within the visualized portion of the lower lungs. This finding favors multifocal pneumonia. Wall thickening and pericolonic infiltration with evidence for hyperemia involving the [id number] transverse colon, descending colon, sigmoid colon, and rectum. Similar findings shown on prior exam with interval involvement of the transverse colon. This finding suggests acute inflammatory bowel disease. No abscess, no bowel obstruction, no free air, no change in the indeterminate 1.1 cm left renal lesion. Given stability, this may reflect a hyperdense cyst. Chest CT, multifocal basilar and peripheral predominant consolidation, the largest of which is 4.9 cm, right lower lobe, focus of consolidation with ground-glass opacity. This appearance is nonspecific but favors a multifocal pneumonia. No cavitation to strongly suggest septic emboli; however, this remains within the differential. An inflammatory process could appear similar. A neoplastic etiology is considered much less likely, however, a followup chest CT in 1 month to ensure resolution is recommended. ASSESSMENT AND PLAN: This is a 64-year-old female who presents with ongoing abdominal pain, bloody diarrhea, history of Crohn's disease. 1. Crohn's flare. The patient was recently in the hospital in the last week of December with similar complaints. Still on prednisone taper. Symptoms started to worsen again in the last 4-5 days. Hemoglobin is 8.4. CAT scan is consistent with active inflammatory bowel disease. Will continue her home mesalamine and placed on IV Solu-Medrol 20 mg t.i.d. We will keep her n.p.o. for now and IV fluids and consult GI in the a.m. for further recommendations. The patient is on Entyvio infusions. 2. Multifocal pneumonia, questionable ground-glass appearance in peripheral lobes. The patient is afebrile. No cough, no shortness of breath, asymptomatic. Etiology unclear. In the ER, received cefepime, vancomycin, and azithromycin. We will place on IV Rocephin and IV doxycycline and we will consult pulmonary for further recommendation. Follow the response. 3. Diabetes, currently n.p.o. We will cut back on Lantus to 10 units in the a.m. and placed on insulin sliding scale. Follow the blood sugars, follow HbA1c levels. 4. History of hypothyroidism. Continue Synthroid. 5. History of gastroesophageal reflux disease, continue Protonix. 6. History of deep venous thrombosis and pulmonary embolism, on Coumadin. INR is 2.2. Received p.o. vitamin K in the ER, holding Coumadin. She is status post IVC filter. Restart Coumadin when okay with GI. 7. History of hyperlipidemia, on statin. 8. Acute kidney injury on chronic kidney disease stage III, baseline creatinine around 1, presently creatinine of 1.2. Getting fluids. Follow the labs in the a.m. 9. Electrolyte abnormalities, hypokalemia and hypomagnesemia, we will replace. 10. Acute blood loss anemia, hemoglobin of 8.4, mostly from ongoing Crohn's flare. Blood consent signed. We will follow the labs. 11. DvT prophylaxis Scds. 12. Disposition, closely monitor in the med tele. Level 1 full code. Expect to discharge home and follow with family doctor. JENNIFER
[2020-02-01] MEDS: DOXYCYCLINE HYCLATE 100 MG in DEXTROSE 5% 100 ML IV SCH ×2 (01:18→13:44)
[2020-02-01] MEDS ORDERED: Nursing to Pharmacy Communication SCH (02:30)
[2020-02-01 05:36] LABS: Cdiff Antigen Positive; Cdiff Toxin A+B Negative Cdiff Toxin (Negative)
[2020-02-01] MEDS: LEVOTHYROXINE SODIUM 75 MCG TABLET PO SCH (05:41)
[2020-02-01 05:50] LABS: Hematocrit (blood only) 22.2 % (37-47); Hemoglobin 6.8 g/dL (12.0-16.0); Mean Corpuscular Hemoglobin 21.5 pg (25-34); Mean Corpuscular Hgb Conc 30.6 g/dL (32-36); Platelet Count 406 K/uL (130-400); RDW Coefficient of Variation 23.5 % (11.5-14.5); RDW Standard Deviation 59.9 fL (36.4-46.3); Red Blood Count 3.17 M/uL (4.2-5.4); White Blood Count 9.67 K/uL (4.8-10.8)
[2020-02-01] MEDS ORDERED: FUROSEMIDE 20 MG in SYRINGE 0 ML IV ONE (05:52)
[2020-02-01] MEDS ORDERED: SODIUM CHLORIDE 0.9% 250 ML IV PRN (05:52)
[2020-02-01] MEDS: INSULIN ASPART 100 UNITS/ML 3 ML PEN SC SCH ×3 (06:11→17:11)
[2020-02-01 06:20] LABS: Estimated Average Glucose 209 mg/dl; Hemoglobin A1C 8.9 % (4.5-5.6)
[2020-02-01 06:29] LABS: ALC (manual) 0.68 K/uL (1.2-3.4); ANC (manual) 8.91 K/uL (1.4-6.5); Anisocytosis Present; Dohle Bodies 1+; Hypochromasia Present; Lymphocytes # (manual) 0.68 K/uL (1.2-3.4); Metamyelocytes # (manual) 0.09 K/uL (0-0); Metamyelocytes % (manual) 0.9 %; Microcytosis Present; Neutrophils # (manual) 8.91 K/uL (1.4-6.5); Neutrophils % (manual) 92.1 %; Ovalocytes 1+; Toxic Granulation 1+
[2020-02-01 06:32] LABS: BUN Creatinine Ratio 15.6 (10-20); Calcium 7.6 mg/dl (8.5-10.1); Creatinine Clr Calc Pharmacy 54.9 ml/min; Est GFR (African American) 85.8; Magnesium 2.1 mg/dl (1.8-2.4); Phosphorus 2.9 mg/dl (2.5-4.9); Potassium 3.3 mmol/L (3.5-5.1)
[2020-02-01] MEDS ORDERED: ACETAMINOPHEN 325 MG TAB PO ONE (07:00)
[2020-02-01 07:06] LABS: INR 1.6 (0.9-1.1); Prothrombin Time 16.7 Seconds (9.0-12.0)
[2020-02-01] MEDS ORDERED: INSULIN ASPART 100 UNITS/ML 3 ML PEN SC SCH (07:30)
[2020-02-01] MEDS ORDERED: POTASSIUM CHLORIDE 20 MEQ TABCR PO ONE (08:15)
[2020-02-01] MEDS ORDERED: RASPBERRY SYRUP 5 ML UDP PO SCH (08:15)
[2020-02-01] MEDS ORDERED: VANCOMYCIN HCL 125 MG/2.5ML SOLN PO SCH (08:15)
[2020-02-01 08:29] LABS: D Dimer 1060 ug/L FEU (0-500)
[2020-02-01] MEDS: cefTRIAXone SODIUM 1,000 MG in DEXTROSE 5% 50 ML IV SCH (08:49)
[2020-02-01] MEDS: methylPREDNISolone 20 MG in SYRINGE 0 ML IV SCH ×3 (08:51→20:41)
[2020-02-01] MEDS: LACTOBACILLUS ACIDOPHILUS (FLORANEX) TAB PO SCH ×3 (08:53→17:02)
[2020-02-01] MEDS: SERTRALINE HCL 50 MG TABLET PO SCH (08:54)
[2020-02-01] MEDS: POTASSIUM CHLORIDE 20 MEQ TABCR PO SCH ×2 (08:54→20:41)
[2020-02-01] MEDS: DICYCLOMINE HCL 10 MG CAP PO SCH ×2 (08:54→20:40)
[2020-02-01] MEDS: CHOLECALCIFEROL 1,000 UNITS 25 MCG TAB PO SCH (08:54)
[2020-02-01] MEDS: MESALAMINE 800 MG TABCR PO SCH ×3 (08:55→20:41)
[2020-02-01] MEDS ORDERED: PANTOprazole 40 MG TAB PO SCH (09:00)
[2020-02-01] MEDS ORDERED: ANASTROZOLE 1 MG TAB PO SCH (09:00)
--- NOTE | 2020-02-01 09:14 | Pulmonary Consultation ---
Date of Consultation February 01, 2020 Assessment & Plan (1) Abnormal CT scan of lung: Impression: 64-year-old female with remote history of breast cancer presenting now with several noncalcified subpleural pulmonary nodules/masses with the largest measuring almost 5cm. There is no associated adenopathy. She has been initiated on antibiotics but is been afebrile with a mild elevation in white blood cell count on presentation. She is admitted with colitis and signs of exacerbation of her Crohn's disease. Recommendations: 1. Multiple pulmonary nodules: The differential is broad and would include neoplastic as well as inflammatory and infectious etiologies. Given her history of breast cancer, cancer is on the differential. Manifestations of inflammatory bowel disease in the lungs are possible and organizing pneumonia is well described complication although the pattern is not entirely consistent with this. Multifocal infectious etiologies are possible but I think would be less l ikely given the lack of fevers and associated symptoms. I would favor biopsy of these lesions. Given their location, CT-guided biopsy would be recommended. Coumadin will need to be held and the patient will need to be cleared for respiratory isolation prior to consideration of that procedure. 2. If the patient elects to not pursue an invasive approach, would recommend short interval follow-up imaging in 1 to 2weeks, potentially with a PET scan. If the lesions persisted or showed any activity would have a low threshold for biopsy but again I think at this point time I would favor tissue sampling. 3. Patient is been placed on antibiotics for pneumonia. My suspicion for infectious etiology is somewhat low at this point time but do not see much harm in completing a course of antibiotics. 4. Management of the patient's underlying inflammatory bowel disease per primary and GI. (2) Multiple pulmonary nodules: History of Present Illness Attending Physician: Beth Hester MD History of Present Illness Asked by hospitalist to evaluate this patient with an abnormal CT scan. Electronic medical record was reviewed. Patient is currently in isolation for coronavirus testing therefore interview the patient was deferred as was physical exam. Patient is a 64-year-old female with a history of Crohn's disease recently treated as an inpatient for flare who presents with 4 to 5-day history of hematochezia and abdominal discomfort. She felt slightly dehydrated and presented to the emergency room complaining of feeling weak and dizzy. She is hemodynamically stable. Hemoglobin was 8.4 with creatinine of 1.2. CT showed colitis with some nodular densities at the lung bases. CT of the chest was performed which revealed several subpleural areas of consolidation which were new compared to prior CT scan from last year. 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 She reportedly is devoid of significant respiratory symptoms. She is on Coumadin for history of DVTs and PEs. Allergies Allergy/AdvReac Type Severity Reaction Status Date / Time aztreonam [From Azactam] Allergy Intermediate flushed Verified 01/31/20 21:07 /itching dorzolamide Allergy Unknown EYE LID Verified 01/31/20 21:07 SWELLING latanoprost Allergy Unknown EYE LID Verified 01/31/20 21:07 SWELLING Penicillins Allergy Unknown Rash Verified 01/31/20 21:07 thimerosal Allergy Unknown Unknown Verified 01/31/20 21:07 timolol Allergy Unknown EYE LID Verified 01/31/20 21:07 SWELLING Home Medications Home Medications Medication Instructions Recorded Confirmed Type calcium citrate-vitamin D3 1 tab PO QAM 05/12/18 01/31/20 History [Citracal-D3 Petites] cholecalciferol (vitamin D3) 1,000 unit PO QAM 05/12/18 01/31/20 History [Vitamin D3] levothyroxine 75 mcg PO QAM 05/12/18 01/31/20 History Entyvio 300 mg IV .Q6 MONTHS 03/22/19 01/31/20 History Probiotic Acidophilus Biobeads 1 tab PO TIDM 03/22/19 01/31/20 History furosemide [Lasix] 20 mg PO QAM 03/22/19 01/31/20 History sertraline [Zoloft] 50 mg PO QAM 03/22/19 01/31/20 History anastrozole 1 mg PO QAM 07/21/19 01/31/20 History atorvastatin 40 mg PO HS 07/21/19 01/31/20 History colestipol 1 g PO TID 07/21/19 01/31/20 History pantoprazole 40 mg PO QAM 07/21/19 01/31/20 History potassium chloride [Klor-Con M20] 20 meq PO BID 07/21/19 01/31/20 History warfarin 2 - 4 mg PO DIRECTED 07/21/19 01/31/20 History Lantus Solostar U-100 Insulin 22 unit SUBCUT QAM 01/01/20 01/31/20 History trazodone 50 mg PO HS PRN 01/01/20 01/31/20 History mesalamine 1,600 mg PO TID 30 Days #180 tab 01/04/20 01/31/20 Rx prednisone See Rx Instructions .ROUTE 01/04/20 01/31/20 Rx .COMPLEX #168 tab dicyclomine 10 mg PO AMHS 01/31/20 01/31/20 History polysaccharide iron complex 150 mg PO BID 01/31/20 01/31/20 History [Ferrex 150] Patient History Medical History (Updated 02/01/20 @ 09:10 by Kenneth Haley MD) Acute hyponatremia (Inactive) Acute kidney injury (Inactive) Anemia (Inactive) Breast cancer, right (Chronic) 2012--SX & RADIATION, NO CHEMO C. difficile diarrhea (Inactive) Carotid artery disease 50% stenosis left ICA per duplex 01/02/20 Clostridium difficile diarrhea (Inactive) Colitis (Inactive) Crohns disease (Chronic) Depression (Inactive) Diabetes mellitus type 2, controlled (Inactive) Diverticulitis large intestine (Inactive) DVT (deep venous thrombosis) (Inactive) DVT (deep venous thrombosis) (Inactive) BILT LEGS 03/2018 GERD (gastroesophageal reflux disease) (Chronic) GI bleed (Inactive) History of pulmonary embolus (PE) (Chronic) "dx in 2001, unprovoked" History of recent steroid use (Inactive) History of recent steroid use (Inactive) History of venous thromboembolism HLD (hyperlipidemia) (Chronic) HTN (hypertension) (Chronic) Hypertension (Inactive) Hypoglycemia associated with diabetes (Inactive) Hypokalemia (Inactive) Hypomagnesemia (Inactive) Hypomagnesemia (Inactive) Hypothyroidism (Chronic) 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) "Abnormal right breast mammogram Biopsy-positive for DCIS Status post lumpectomy with no residual tumor stage pTis NXMX Estrogen receptor positive, progesterone receptor positive Status post completion of radiation therapy 02/22/2013 received 3850 cGy utilizing accelerated partial breast treatment " Leukocytosis (leucocytosis) (Inactive) Obesity (BMI 30-39.9) (Chronic) Pancolitis (Acute) Pulmonary embolism Sepsis (Inactive) 03/2018 Severe sepsis (Inactive) SIRS (systemic inflammatory response syndrome) (Inactive) T2DM (type 2 diabetes mellitus) (Chronic) UTI (urinary tract infection) (Inactive) Surgical History H/O breast biopsy (Chronic) 2012--RIGHT MALIGNANT H/O lumpectomy History of appendectomy (Resolved) History of colonoscopy (Chronic) History of lumpectomy of right breast (Resolved) "+ HERBIE ER/CT + in 10/2012 s/p RT" History of tonsillectomy and adenoidectomy (Chronic) Hx of appendectomy S/P insertion of IVC (inferior vena caval) filter (Chronic) 03/29/[address] BUSTAMANTE Status post glaucoma surgery (Chronic) BILT Social History Smoking Status: Never smoker Second Hand Exposure: No; Do You Dip or Chew Tobacco: No; Tobacco Cessation Education Requested by Patient: No Hx Alcohol Use: No Hx Substance Use: No Preferred Language: Turkish Communication Ability: Effective Visual Impairment: No Limitations Hearing Ability: Normal Clinical Documentation Specialist Required: No Beliefs That Will Affect Care: None marital status: Single Current Living Situation: Alone Current Living Situation Comment: alone Other Information That Helps Us Care for You: No Feels Safe at Home: Yes Safety Concerns: Feels Safe At This Time Review of Systems Review of Systems: Please refer to admission H&P. Physical Exam Physical Exam: Physical exam deferred as the patient is currently in isolation for coronavirus testing. Please refer to admission notes for full details Results & Data Results & Data ([facility]) Vital Signs (Past 12 Hours) Vital Signs Temp Pulse Pulse Resp BP BP BP 02/01/20 08:44 36.7 C 79 18 114/67 02/01/20 08:15 36.9 C 70 17 108/64 02/01/20 08:00 36.8 C 78 17 107/61 02/01/20 07:42 36.9 C 78 18 121/66 02/01/20 07:15 36.9 C 75 18 115/66 02/01/20 03:45 37 C 82 20 103/65 02/01/20 01:47 37 C 112 H 18 107/71 02/01/20 00:08 81 02/01/20 00:05 37 C 112 H 18 107/71 01/31/20 22:35 85 17 01/31/20 22:00 86 19 108/67 01/31/20 21:30 93 H 21 115/70 Pulse Ox Pulse Ox 02/01/20 08:44 98 02/01/20 08:15 99 02/01/20 08:00 97 02/01/20 07:42 02/01/20 07:15 97 02/01/20 03:45 93 02/01/20 01:47 94 02/01/20 00:08 02/01/20 00:05 94 94 01/31/20 22:35 01/31/20 22:00 96 01/31/20 21:30 98 Laboratory Results 02/01/20 05:36 02/01/20 05:36 INR 1.[address] of the chest was independently reviewed. CT OF THE CHEST WITHOUT IV CONTRAST CLINICAL HISTORY: Pneumonia. COMPARISON STUDY: Chest radiograph April 18, 2018. Chest radiograph January 04, 2020. CT DOSE: 234.25 mGy.cm TECHNIQUE: Axial images of the chest were obtained without IV contrast. Images were reviewed in the axial, sagittal, and coronal planes. IV contrast was not administered for this examination. Automated exposure control was utilized for the study. A dose lowering technique was utilized adhering to the principles of ALARA. FINDINGS: No enlarged axillary, mediastinal or hilar lymph nodes are present. Mild cardiomegaly is noted. There is moderate coronary artery calcification. There is no pericardial effusion. No pneumothorax or pleural effusion is noted. The central airways are patent. Note is made of multiple focal nodular airspace opacities, several of which have associated groundglass opacity. The largest is a 4.9 cm right lower lobe focus. These are predominantly within the bilateral lower lobes. There is a 9 mm focus within the right middle lobe. These are predominantly subpleural in location. There is no cavitation. Bony thorax is unremarkable. Upper abdomen is unremarkable. IMPRESSION: Multifocal basilar and peripheral predominant consolidation, the largest of which is a 4.9 cm right lower lobe focus of consolidation with groundglass opacity. The appearance is nonspecific but favors multifocal pneumonia. No cavitation to strongly suggest septic emboli however this remains within the differential. An inflammatory process could appear similar. A neoplastic etiology is considered much less likely however a follow-up chest CT in one month to ensure resolution is recommended. PG Care Time/CCT Total # of Minutes Spent Total Time Spent with Patient: Total time spent is greater than 50% in coordination of care (as documented) at patient's floor/unit and/or counseling patient: Coding Level of Care Code 11462 Initial Inpt Care Lvl [address] scan of lung R91.8 Multiple pulmonary nodules R91.8
[2020-02-01] MEDS: INSULIN GLARGINE SOLOSTAR 100 UNITS/ML 3 ML PEN SC SCH (09:17)
[2020-02-01 10:29] LABS: iSTAT Creatinine 1.2 mg/dl (0.6-1.3); iSTAT Potassium 3.1 mmol/L (3.3-5.0)
[2020-02-01 10:30] LABS: iSTAT Hemoglobin 9.2 g/dl (12.0-16.0); iSTAT Ionized Calcium 1.1 mmol/l (1.12-1.32)
--- NOTE | 2020-02-01 10:59 | Gastrointestinal Consultation ---
Date of Consultation February 01, 2020 Assessment & Plan (1) Ulcerative pancolitis: (2) Symptomatic anemia: (3) GIB (gastrointestinal bleeding): (4) Pneumonia: Pt is a 64 y/o female w UC pancolitis currently on Entyvio IV, mesalamine and middle of Prednisone taper from last flare 1 month ago; who presented w increased loose stools, abd pain and rectal bleeding. Hx of Cdiff s/p fecal transplant. No evidence of recurrent Cdiff at this time. CT chest/abd/pelvis concerning for multifocal pneumonia and active IBD. - DC vancomycin, no recurrent Cdiff (gene +, toxin -) - F/U COVID 19 test - Pneumonia management per primary team - Methylprednisone 20mg IV q8hrs. - Continue Mesalamines for now; Entyvio last dose 01/18 - CL diet today, NPO after midnight. Plan to perform colonscopy tomorrow 02/01 to eval further ? continued active IBD, disease staging. Supervising Physician Co-Signing Physician Notes I performed a history and physical examination of the patient today, including specifically on physical exam - soft abdomen. I have discussed the patient's management with the advanced practitioner. Please refer to the nurse practitioner's note for the documented findings and plan of care. Flare while on Entyvio Q6hrs due to prior low drug level. Currently on Steroids. Colonoscopy tomorrow. Start Uceris as OP and check drug level, if remains low will need to change to Stellara. History of Present Illness Reason for Consultation: Ulcerative colitis flare Requesting Physician: Dr. Beth Hester Attending Physician: Dr. Caesar Chow History of Present Illness Pt is a 64 y/o female w hx of UC pancolitis how presented w abd pain, diarrhea and rectal bleeding. She was just admitted here 1 month ago w UC flare. She is s/p fecal transplant for hx of Cdiff. Repeat Cdiff stool showed + gene but negative toxin. At her last admission she was started on Prednisone taper & placed on Mesalamine, and Entyvio infusion was continued, last dose 01/18 per pt's report. She is down to Prednisone 20mg daily now. Started to have increased loose stools and seeing blood per rectum again. Denies fever, chills, CP, SOB, mild pain on sides of abd. Cdiff toxin negative again. Labs today showed H/H 6.8/, she is receiving 1U PRBC transfusion. Kidney, liver function tests normal. D dimer elevated. She did have CT chest/abd/pelvis which showed multifocal consolidations on lower lungs suspected to be pneumonia. She is started on antibx and also placed on airborne precautions, COVID19 test pending. There's wall thickening & hyperemia at mid to distal transverse colon, descending colon, sigmoid and rectum. No abscess or bowel obstruction, free air. Allergies Allergy/AdvReac Type Severity Reaction Status Date / Time aztreonam [From Azactam] Allergy Intermediate flushed Verified 01/31/20 21:07 /itching dorzolamide Allergy Unknown EYE LID Verified 01/31/20 21:07 SWELLING latanoprost Allergy Unknown EYE LID Verified 01/31/20 21:07 SWELLING Penicillins Allergy Unknown Rash Verified 01/31/20 21:07 thimerosal Allergy Unknown Unknown Verified 01/31/20 21:07 timolol Allergy Unknown EYE LID Verified 01/31/20 21:07 SWELLING Home Medications Home Medications Medication Instructions Recorded Confirmed Type calcium citrate-vitamin D3 1 tab PO QAM 05/12/18 01/31/20 History [Citracal-D3 Petites] cholecalciferol (vitamin D3) 1,000 unit PO QAM 05/12/18 01/31/20 History [Vitamin D3] levothyroxine 75 mcg PO QAM 05/12/18 01/31/20 History Entyvio 300 mg IV .Q6 MONTHS 03/22/19 01/31/20 History Probiotic Acidophilus Biobeads 1 tab PO TIDM 03/22/19 01/31/20 History furosemide [Lasix] 20 mg PO QAM 03/22/19 01/31/20 History sertraline [Zoloft] 50 mg PO QAM 03/22/19 01/31/20 History anastrozole 1 mg PO QAM 07/21/19 01/31/20 History atorvastatin 40 mg PO HS 07/21/19 01/31/20 History colestipol 1 g PO TID 07/21/19 01/31/20 History pantoprazole 40 mg PO QAM 07/21/19 01/31/20 History potassium chloride [Klor-Con M20] 20 meq PO BID 07/21/19 01/31/20 History warfarin 2 - 4 mg PO DIRECTED 07/21/19 01/31/20 History Lantus Solostar U-100 Insulin 22 unit SUBCUT QAM 01/01/20 01/31/20 History trazodone 50 mg PO HS PRN 01/01/20 01/31/20 History mesalamine 1,600 mg PO TID 30 Days #180 tab 01/04/20 01/31/20 Rx prednisone See Rx Instructions .ROUTE 01/04/20 01/31/20 Rx .COMPLEX #168 tab dicyclomine 10 mg PO AMHS 01/31/20 01/31/20 History polysaccharide iron complex 150 mg PO BID 01/31/20 01/31/20 History [Ferrex 150] Patient History Medical History Acute hyponatremia (Inactive) Acute kidney injury (Inactive) Anemia (Inactive) Breast cancer, right (Chronic) 2012--SX & RADIATION, NO CHEMO C. difficile diarrhea (Inactive) Carotid artery disease 50% stenosis left ICA per duplex 01/02/20 Clostridium difficile diarrhea (Inactive) Colitis (Inactive) Crohns disease (Chronic) Depression (Inactive) Diabetes mellitus type 2, controlled (Inactive) Diverticulitis large intestine (Inactive) DVT (deep venous thrombosis) (Inactive) DVT (deep venous thrombosis) (Inactive) BILT LEGS 03/2018 GERD (gastroesophageal reflux disease) (Chronic) GI bleed (Inactive) History of pulmonary embolus (PE) (Chronic) "dx in 2001, unprovoked" History of recent steroid use (Inactive) History of recent steroid use (Inactive) History of venous thromboembolism HLD (hyperlipidemia) (Chronic) HTN (hypertension) (Chronic) Hypertension (Inactive) Hypoglycemia associated with diabetes (Inactive) Hypokalemia (Inactive) Hypomagnesemia (Inactive) Hypomagnesemia (Inactive) Hypothyroidism (Chronic) 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) "Abnormal right breast mammogram Biopsy-positive for DCIS Status post lumpectomy with no residual tumor stage pTis NXMX Estrogen receptor positive, progesterone receptor positive Status post completion of radiation therapy 02/22/2013 received 3850 cGy utilizing accelerated partial breast treatment " Leukocytosis (leucocytosis) (Inactive) Obesity (BMI 30-39.9) (Chronic) Pancolitis (Acute) Pulmonary embolism Sepsis (Inactive) 03/2018 Severe sepsis (Inactive) SIRS (systemic inflammatory response syndrome) (Inactive) T2DM (type 2 diabetes mellitus) (Chronic) UTI (urinary tract infection) (Inactive) Surgical History H/O breast biopsy (Chronic) 2012--RIGHT MALIGNANT H/O lumpectomy History of appendectomy (Resolved) History of colonoscopy (Chronic) History of lumpectomy of right breast (Resolved) "+ HERBIE [place] + in 10/2012 s/p RT" History of tonsillectomy and adenoidectomy (Chronic) Hx of appendectomy S/P insertion of IVC (inferior vena caval) filter (Chronic) 03/29/[address] BUSTAMANTE Status post glaucoma surgery (Chronic) BILT Family History Mother Family history of diabetes mellitus Heart disease Father Family history of diabetes mellitus Heart disease Sister Family history of diabetes mellitus Grandmother Family history of diabetes mellitus PATERNAL Uterine cancer Sister Crohn's disease Social History Smoking Status: Never smoker Second Hand Exposure: No; Do You Dip or Chew Tobacco: No; Tobacco Cessation Education Requested by Patient: No Hx Alcohol Use: No Hx Substance Use: No Preferred Language: Montserratian Communication Ability: Effective Visual Impairment: No Limitations Hearing Ability: Normal Director Business Required: No Beliefs That Will Affect Care: None marital status: Single Current Living Situation: Alone Current Living Situation Comment: alone Other Information That Helps Us Care for You: No Feels Safe at Home: Yes Safety Concerns: Feels Safe At This Time Review of Systems Review of Systems: All systems reviewed & are unremarkable except as noted in HPI & below Physical Exam Constitutional: WD/WN, vitals as above well groomed, cooperative and comfortable Eyes: PERRL, conjunctivae normal, anicteric sclerae ENMT: external ear and nose normal, oropharynx normal Respiratory: normal respiratory effort, lungs clear to auscultation Cardiovascular: RRR, no murmur, no edema Gastrointestinal (Abdomen): Inspection/Auscultation: normal bowel sounds Percussion/Palpation: + abdomen tender (Bilateral along sides ) and abdomen soft Skin: no rashes, warm and dry no jaundice Psychiatric: A+Ox3, euthymic affect Lymphatic: no lymphedema Results & Data ([facility]) Vital Signs (Past 12 Hours) Vital Signs Temp Pulse Pulse Resp BP BP BP 02/01/20 10:44 36.8 C 67 18 114/61 02/01/20 10:15 36.9 C 74 18 123/74 02/01/20 09:21 36.8 C 69 18 125/74 02/01/20 09:00 72 02/01/20 08:44 36.7 C 79 18 114/67 02/01/20 08:15 36.9 C 70 17 108/64 02/01/20 08:00 36.8 C 78 17 107/61 02/01/20 07:42 36.9 C 78 18 121/66 02/01/20 07:15 36.9 C 75 18 115/66 02/01/20 03:45 37 C 82 20 103/65 02/01/20 01:47 37 C 112 H 18 107/71 02/01/20 00:08 81 02/01/20 00:05 37 C 112 H 18 107/71 Pulse Ox Pulse Ox 02/01/20 10:44 96 02/01/20 10:15 97 02/01/20 09:21 99 02/01/20 09:00 02/01/20 08:44 98 02/01/20 08:15 99 02/01/20 08:00 97 02/01/20 07:42 02/01/20 07:15 97 02/01/20 03:45 93 02/01/20 01:47 94 02/01/20 00:08 02/01/20 00:05 94 94 (1) GIB (gastrointestinal bleeding) GI bleed type/associated pathology: unspecified gastrointestinal hemorrhage type Qualified Code(s): K92.2 - Gastrointestinal hemorrhage, unspecified (2) Pneumonia Laterality: right Lung location: unspecified part of lung Pneumonia type: due to unspecified organism Qualified Code(s): J18.9 - Pneumonia, unspecified organism
[2020-02-01] MEDS ORDERED: NSS + 20MEQ KCL 20 MEQ/1,000 ML BAG IV SCH (16:45)
[2020-02-01 16:51] LABS: Hematocrit (blood only) 29.7 % (37-47); Hemoglobin 9.5 g/dL (12.0-16.0)
[2020-02-01] MEDS ORDERED: bisacodyL 5 MG TABEC PO SCH (17:00)
[2020-02-01] MEDS ORDERED: POLYETHYLENE (MIRALAX) 17 GM PACK PO SCH ×2 (17:00→21:00)
--- NOTE | 2020-02-01 17:43 | Communication Note ---
Date of Service: February 01, 2020 Pt admitted earlier today with anemia /GI bleed -Crohn's flare Crohn's disease, exacerbation with rectal bleeding appreciate GI eval scheduled for colonoscopy tomorrow PRBC tx for acute blood loss anemia IV solumedrol for Crohn's flare Acute kidney failure Cr 1.23 with baseline range of 0.89-1.0. . Cr has trended down to 0.83 with IV fluid chronic C diff : C diff toxin negative /positive gene : carrier state no need for PO vanco cont isolation CT chest shows rt lower lobe nodule ( hx of breast CA ) pulm input appreciated will need CT guided biopsy when medically stable Hx of PE/DVT : family hx of coagulopathy will need life long anticoagulation Coumadin on hold , given Vit K to reverse INR due to GI bleed will be resumed once bleeding risk is minimum FULL CODE update given to sister over phone
--- NOTE | 2020-02-01 22:26 | Electrocardiogram Report ---
Test Reason : Blood Pressure : / mmHG Vent. Rate : 111 BPM Atrial Rate : 111 BPM P-R Int : 138 ms QRS Dur : 076 ms QT Int : 316 ms P-R-T Axes : 065 -02 090 degrees QTc Int : 429 ms Sinus tachycardia Possible Inferior infarct (cited on or before 31-JAN-2020) Abnormal ECG When compared with ECG of 01-JAN-2020 17:30, Questionable change in initial forces of Inferior leads Confirmed by Claudio Atkinson ([id number]) on 02/01/2020 10:25:43 PM Referred By: REFERRED SELF Confirmed By:Claudio Atkinson
[2020-02-02] MEDS: DOXYCYCLINE HYCLATE 100 MG in DEXTROSE 5% 100 ML IV SCH ×2 (00:10→12:19)
[2020-02-02] MEDS: INSULIN ASPART 100 UNITS/ML 3 ML PEN SC SCH ×5 (00:10→20:54)
[2020-02-02] MEDS: LEVOTHYROXINE SODIUM 75 MCG TABLET PO SCH (06:11)
[2020-02-02] MEDS: DICYCLOMINE HCL 10 MG CAP PO SCH ×2 (08:04→20:50)
[2020-02-02] MEDS: INSULIN GLARGINE SOLOSTAR 100 UNITS/ML 3 ML PEN SC SCH (08:05)
[2020-02-02] MEDS: MESALAMINE 800 MG TABCR PO SCH ×3 (08:07→20:52)
[2020-02-02] MEDS: cefTRIAXone SODIUM 1,000 MG in DEXTROSE 5% 50 ML IV SCH (08:07)
[2020-02-02] MEDS: methylPREDNISolone 20 MG in SYRINGE 0 ML IV SCH ×3 (08:07→20:49)
[2020-02-02] MEDS: LACTOBACILLUS ACIDOPHILUS (FLORANEX) TAB PO SCH ×3 (08:08→16:16)
[2020-02-02] MEDS: POTASSIUM CHLORIDE 20 MEQ TABCR PO SCH ×2 (08:08→20:51)
[2020-02-02] MEDS: SERTRALINE HCL 50 MG TABLET PO SCH (08:08)
[2020-02-02] MEDS: CHOLECALCIFEROL 1,000 UNITS 25 MCG TAB PO SCH (08:09)
--- NOTE | 2020-02-02 08:19 | Pulmonology Progress Note ---
Date of Service February 02, 2020 Assessment & Plan (1) Abnormal CT scan of lung: Impression: 64-year-old female with remote history of breast cancer presenting now with several noncalcified subpleural pulmonary nodules/masses with the largest measuring almost 5cm. There is no associated adenopathy. She has been initiated on antibiotics but is been afebrile with a mild elevation in white blood cell count on presentation. She is admitted with colitis and signs of exacerbation of her Crohn's disease. Recommendations: 1. Multiple pulmonary nodules: The differential is broad and would include neoplastic and inflammatory and infectious etiologies. Given her history of breast cancer, cancer is on the differential. Manifestations of inflammatory bowel disease in the lungs are possible and organizing pneumonia is well described complication although the pattern is not entirely consistent with this. Multifocal infectious etiologies including fungal infection given the fact the patient has been on Biologics for her Crohn disease are possible but I think would be less likely given the lack of fevers and associated symptoms. I would favor biopsy of these lesions. Given their location, CT-guided biopsy would be recommended, they are not likely to be amenable to bronchoscopy. Co umadin will need to be held and the patient will need to be cleared for respiratory isolation prior to consideration of that procedure. Agree with resolving her GI issues prior to undertaking work-up of her pulmonary lesions. Biopsy can be performed in the outpatient setting if the patient is felt to be stable to be dismissed from the hospital 2. Additional evaluation of the patient's medical issues and GI issues per GI and the primary medical service 3. Patient initially received antibiotics for pneumonia. Given her negative procalcitonin I would favor discontinuing the use and following clinically unless there needed for GI issues (2) Multiple pulmonary nodules: Admission and Anticipated Discharge Date Admission Date: January 31, 2020 Subjective Patient seen and examined. No acute distress. She is on room air. She denies any respiratory difficulties including cough sputum production chest pain. Also denies constitutional symptoms such as fevers chills or night sweats. She is undergone a prep for colonoscopy to be performed later today. Review of Systems Review of Systems: Please refer to admission H&P. Physical Exam Constitutional: WD/WN, vitals as above Neck: trachea midline, no thyromegaly Respiratory: normal respiratory effort, lungs clear to auscultation Cardiovascular: RRR, no murmur, no edema Gastrointestinal (Abdomen): normal bowel sounds, soft, nontender, no hepatosplenomegaly Musculoskeletal: Extremities: extremities normal to inspection Skin: no rashes, warm and dry Neurologic: Nonfocal exam Lymphatic: no cervical lymphadenopathy Results & Data Results & Data ([facility]) Vital Signs (Past 12 Hours) Vital Signs Temp Pulse Pulse Resp BP Pulse Ox 02/02/20 07:52 36.4 C L 59 L 18 115/76 99 02/02/20 04:01 36.8 C 78 18 122/74 96 02/02/20 01:01 65 02/01/20 23:00 36.9 C 72 19 130/65 98 Laboratory Results 02/01/20 16:13 02/01/20 05:36 LDH normal at 188 ESR 38 CRP elevated at 8.92 Procalcitonin negative at 0.17 Galactomannan pending Diagnostic Findings No new imaging PG Care Time/CCT Total # of Minutes Spent Total Time Spent with Patient: Total time spent is greater than 50% in coordination of care (as documented) at patient's floor/unit and/or counseling patient: Coding Level of Care Code 08688 Subseq Hosp Care Lvl [address] scan of lung R91.8 Multiple pulmonary nodules R91.8 Time Spent (min) 30
--- NOTE | 2020-02-02 09:03 | Gastroenterology Progress Note ---
Date of Service February 02, 2020 Assessment & Plan (1) Ulcerative pancolitis: (2) Symptomatic anemia: (3) GIB (gastrointestinal bleeding): (4) Pneumonia: Pt is a 64 y/o female w UC pancolitis currently on Entyvio IV, mesalamine and middle of Prednisone taper from last flare 1 month ago; who presented w increased loose stools, abd pain and rectal bleeding. Hx of Cdiff s/p fecal transplant. No evidence of recurrent Cdiff at this time. CT chest/abd/pelvis concerning for multifocal pneumonia and active IBD. - Pneumonia management per Pulmonology - Methylprednisone 20mg IV q8hrs; plan to start Uceriz 9mg daily as outpt - Continue Mesalamines for now; Entyvio last dose 01/07. Will check Entyvio Through level before next dose on 02/18. If levels low will plan to start Stelara - Keep NPO, plan for colonoscopy today by Dr. Chow Admission and Anticipated Discharge Date Admission Date: January 31, 2020 Supervising Physician Co-Signing Physician Notes I performed a history and physical examination of the patient today, including specifically on physical exam - soft abdomen. I have discussed the patient's management with the advanced practitioner. Please refer to the nurse practitioner's note for the documented findings and plan of care. Subjective Pt completed bowel prep, and had been NPO for colonoscopy today. Stool liquid, w blood. She denies n/v, cough, SOB, but having mild LLQ abd tenderness Physical Exam Constitutional: WD/WN, vitals as above well groomed, cooperative and comfortable Eyes: PERRL, conjunctivae normal, anicteric sclerae ENMT: external ear and nose normal, oropharynx normal Respiratory: normal respiratory effort, lungs clear to auscultation Cardiovascular: RRR, no murmur, no edema Gastrointestinal (Abdomen): Inspection/Auscultation: normal bowel sounds and + hypoactive bowel sounds Percussion/Palpation: + abdomen tender (LLQ) and abdomen soft Skin: no rashes, warm and dry no jaundice Psychiatric: A+Ox3, euthymic affect Lymphatic: no lymphedema Results & Data ([facility]) Vital Signs (Past 12 Hours) Vital Signs Temp Pulse Pulse Resp BP Pulse Ox 02/02/20 07:52 36.4 C L 59 L 18 115/76 99 02/02/20 04:01 36.8 C 78 18 122/74 96 02/02/20 01:01 65 02/01/20 23:00 36.9 C 72 19 130/65 98 (1) GIB (gastrointestinal bleeding) GI bleed type/associated pathology: unspecified gastrointestinal hemorrhage type Qualified Code(s): K92.2 - Gastrointestinal hemorrhage, unspecified (2) Pneumonia Laterality: right Lung location: unspecified part of lung Pneumonia type: due to unspecified organism Qualified Code(s): J18.9 - Pneumonia, unspecified organism
--- NOTE | 2020-02-02 10:02 | Anesthesiology Consultation ---
Date of Service February 02, 2020 Assessment & Plan Chart Review Chart Review: Acceptable Risk for Surgery Consults Requested none ASA ASA4 Proposed Anesthesia Anesthesia Type: MAC Risk / Benefits Reviewed With: PT / POA / Parent / Guardian, Accepts Plan and Informed Consent Obtained History Surgery Operation Date: 02/02/20 15:00 Proposed Procedures p Colonoscopy Dr Chow - Caesar Chow MD Height/Weight Height: 4 ft 10 in Weight: 68.8 kg Allergies Allergy/AdvReac Type Severity Reaction Status Date / Time aztreonam [From Azactam] Allergy Intermediate flushed Verified 02/02/20 14:55 /itching dorzolamide Allergy Unknown EYE LID Verified 02/02/20 14:55 SWELLING latanoprost Allergy Unknown EYE LID Verified 02/02/20 14:55 SWELLING Penicillins Allergy Unknown Rash Verified 02/02/20 14:55 thimerosal Allergy Unknown Unknown Verified 02/02/20 14:55 timolol Allergy Unknown EYE LID Verified 02/02/20 14:55 SWELLING Medications Home Medications Medication Instructions Recorded Confirmed Last Taken calcium citrate-vitamin D3 1 tab PO QAM 05/12/18 01/31/20 01/31/20 [Citracal-D3 Petites] cholecalciferol (vitamin D3) 1,000 unit PO QAM 05/12/18 01/31/20 01/31/20 [Vitamin D3] levothyroxine 75 mcg PO QAM 05/12/18 01/31/20 01/31/20 Entyvio 300 mg IV .Q6 MONTHS 03/22/19 01/31/20 01/19/20 Probiotic Acidophilus Biobeads 1 tab PO TIDM 03/22/19 01/31/20 01/31/20 AM DOSE furosemide [Lasix] 20 mg PO QAM 03/22/19 01/31/20 01/31/20 sertraline [Zoloft] 50 mg PO QAM 03/22/19 01/31/20 01/31/20 anastrozole 1 mg PO QAM 07/21/19 01/31/20 01/31/20 atorvastatin 40 mg PO HS 07/21/19 01/31/20 01/30/20 colestipol 1 g PO TID 07/21/19 01/31/20 01/31/20 AM DOSE pantoprazole 40 mg PO QAM 07/21/19 01/31/20 01/31/20 potassium chloride [Klor-Con M20] 20 meq PO BID 07/21/19 01/31/20 01/31/20 AM DOSE warfarin 2 - 4 mg PO DIRECTED 07/21/19 01/31/20 01/31/20 2 MG Lantus Solostar U-100 Insulin 22 unit SUBCUT QAM 01/01/20 01/31/20 01/31/20 trazodone 50 mg PO HS PRN 01/01/20 01/31/20 Unknown mesalamine 1,600 mg PO TID 30 Days #180 tab 01/04/20 01/31/20 01/31/20 AM DOSE prednisone See Rx Instructions .ROUTE 01/04/20 01/31/20 01/31/20 .COMPLEX #168 tab dicyclomine 10 mg PO AMHS 01/31/20 01/31/20 01/31/20 AM DOSE polysaccharide iron complex 150 mg PO BID 01/31/20 01/31/20 01/31/20 [Ferrex 150] AM DOSE Active Medications Generic Name Dose Route Start Last Admin Trade Name Kalpeshq PRN Reason Stop Dose Admin Dicyclomine HCl 10 mg 02/01/20 09:00 02/02/20 08:04 Bentyl PO 03/02/20 08:59 10 mg AMHS RACHEL Administration Ceftriaxone Sodium 1,000 mg/ 50 mls @ 100 mls/hr 02/01/20 09:00 02/02/20 08:45 Dextrose IV 02/08/20 08:59 Infused DAILY RACHEL Infusion Protocol Doxycycline Hyclate 100 mg/ 110 mls @ 50 mls/hr 02/01/20 01:00 02/02/20 14:41 Dextrose IV 02/08/20 00:59 Infused Q12H RACHEL Infusion Methylprednisolone 20 mg/ 0.32 mls @ 1.5 mls/min 02/01/20 09:00 02/02/20 08:07 Syringe IV 03/02/20 08:59 1.5 mls/min TID RACHEL Administration Insulin Aspart 0 units 02/01/20 06:00 02/02/20 12:16 Novolog Flexpen SC 03/02/20 05:59 2 units Q6 RACHEL Administration Insulin Glargine 10 units 02/01/20 09:00 02/02/20 08:05 Lantus Solostar Pen SC 03/02/20 08:59 10 units DAILY RACHEL Administration Lactobacillus Acidophilus 1 tab 02/01/20 08:00 02/02/20 12:15 Floranex PO 03/02/20 07:59 Not Given TIDM RACHEL Levothyroxine Sodium 75 mcg 02/01/20 06:30 02/02/20 06:11 Synthroid PO 03/02/20 06:29 75 mcg DAILYBB RACHEL Administration Mesalamine 1,600 mg 02/01/20 09:00 02/02/20 13:22 Mesalamine PO 03/02/20 08:59 Not Given TID RACHEL Potassium Chloride 20 meq 02/01/20 09:00 02/02/20 08:08 Klor-Con M20 PO 03/02/20 08:59 20 meq BID RACHEL Administration Sertraline HCl 50 mg 02/01/20 09:00 02/02/20 08:08 Zoloft PO 03/02/20 08:59 50 mg QAM RACHEL Administration Vitamin D 1,000 units 02/01/20 09:00 02/02/20 08:09 Vitamin D3 PO 03/02/20 08:59 1,000 units QAM RACHEL Administration NPO Date Last Intake of Fluids: 02/02/20 Time Last Intake of Fluids: 00:00 Date Last Intake of Solids: 02/01/20 Past Medical History Medical History Acute hyponatremia (Inactive) Acute kidney injury (Inactive) Anemia (Inactive) Breast cancer, right (Chronic) 2012--SX & RADIATION, NO CHEMO C. difficile diarrhea (Inactive) Carotid artery disease 50% stenosis left ICA per duplex 01/02/20 Colitis (Inactive) Crohns disease (Chronic) Depression (Inactive) Diabetes mellitus type 2, controlled (Inactive) Diverticulitis large intestine (Inactive) DVT (deep venous thrombosis) (Inactive) BILT LEGS 03/2018 GERD (gastroesophageal reflux disease) (Chronic) GI bleed (Inactive) History of pulmonary embolus (PE) (Chronic) "dx in 2001, unprovoked" History of recent steroid use (Inactive) HLD (hyperlipidemia) (Chronic) HTN (hypertension) (Chronic) Hypertension (Inactive) Hypoglycemia associated with diabetes (Inactive) Hypokalemia (Inactive) Hypomagnesemia (Inactive) Hypothyroidism (Chronic) 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) "Abnormal right breast mammogram Biopsy-positive for DCIS Status post lumpectomy with no residual tumor stage pTis NXMX Estrogen receptor positive, progesterone receptor positive Status post completion of radiation therapy 02/22/2013 received 3850 cGy utilizing accelerated partial breast treatment " Leukocytosis (leucocytosis) (Inactive) Obesity (BMI 30-39.9) (Chronic) Pancolitis (Acute) Severe sepsis (Inactive) SIRS (systemic inflammatory response syndrome) (Inactive) UTI (urinary tract infection) (Inactive) Exercise / Class Metabolic Activity II 4-5 Yardwork/Stairs/Walk up hill Past Family History Family History Mother Family history of diabetes mellitus Heart disease Father Family history of diabetes mellitus Heart disease Sister Family history of diabetes mellitus Grandmother Family history of diabetes mellitus PATERNAL Uterine cancer Sister Crohn's disease Past Surgical History Surgical History H/O breast biopsy (Resolved) 2012--RIGHT MALIGNANT H/O lumpectomy History of appendectomy (Resolved) History of colonoscopy (Resolved) History of lumpectomy of right breast (Resolved) "+ HERBIE ER/IN + in 10/2012 s/p RT" History of tonsillectomy and adenoidectomy (Resolved) Hx of appendectomy S/P insertion of IVC (inferior vena caval) filter (Resolved) 03/29/[address] BUSTAMANET Status post glaucoma surgery (Resolved) BILT Past Anesthesia History No Hx of Anesthesia Complications and No Family Hx of Anesthesia Complications History of PONV No Hx of PONV and No Hx of Motion Sickness Social History Smoking Status: Never smoker Do You Dip or Chew Tobacco: No Hx Alcohol Use: No Hx Substance Use: No substance use type: does not use Physical Exam Vital Signs Last Vital Signs Temp 36.3 C L 02/02/20 11:24 Pulse 58 L 02/02/20 11:24 Resp 17 02/02/20 11:24 BP 131/77 02/02/20 11:24 Pulse Ox 97 02/02/20 11:24 ENMT Mouth: no TMJ abnormality Thyromental Distance: > or= 3.5 Finger Breadths Mallampati Class: III Neck normal visual inspection and trachea midline; neck extension not limited Respiratory normal respiratory effort Auscultation: lungs clear to auscultation bilaterally Cardiovascular Rate/Rhythm: regular rate and regular rhythm Heart Sounds: no murmur Musculoskeletal Spine: normal cervical ROM Extremities: full ROM of extremities Neurologic moves all extremities Psychiatric Orientation: alert and oriented x 3 Testing Laboratory Results 02/02/20 10:20 02/02/20 10:20 PT 18.0 Seconds (9.0-12.0) H 02/02/20 10:20 INR 1.8 (0.9-1.1) H 02/02/20 10:20 APTT 37.6 Seconds (21.0-31.0) H 01/31/20 18:02 Hemoglobin A1c 8.9 % (4.5-5.6) H 02/01/20 05:36 Blood Type AB Negative 01/31/20 18:02 Antibody Screen NEGATIVE 01/31/20 18:02 02/01/20 20:48 Escherichia coli Shiga Toxins Test - Preliminary Stool Stool Culture - Preliminary No Salmonella isolated to date, No Shigella isolated to date, No Campylobacter jejuni isolated to date. 02/02/20 02/02/20 02/02/20 11:32 05:52 05:50 POC Glucose 196 H 352 H* 296 H 02/02/20 05:49 POC Glucose 322 H* Electrocardiogram Date: 01/31/20 Findings: + ST @ (111) Chest X-Ray Date: 01/04/20 Findings: + NAD Echocardiogram Date: 02/05/20 EF: 55-60 LV Function: normal RWMA: + none Valvular Disease: + no significant valvular disease
[2020-02-02 10:30] LABS: Basophils # (auto) 0.01 K/uL (0-0.2); Basophils % (auto) 0.2 %; Hematocrit (blood only) 32.7 % (37-47); Hemoglobin 10.2 g/dL (12.0-16.0); Immature Granulocytes # (auto) 0.12 K/uL (0.00-0.02); Immature Granulocytes % (auto) 2.3 %; Lymphocytes # (auto) 0.94 K/uL (1.2-3.4); Lymphocytes % (auto) 17.6 %; Mean Corpuscular Hemoglobin 23.9 pg (25-34); Mean Corpuscular Hgb Conc 31.2 g/dL (32-36); Mean Corpuscular Volume 76.6 fL (80-100); Mean Platelet Volume 8.4 fL (7.4-10.4); Monocytes # (auto) 0.44 K/uL (0.11-0.59); Monocytes % (auto) 8.3 %; Neutrophils # (auto) 3.82 K/uL (1.4-6.5); Neutrophils % (auto) 71.6 %; Platelet Count 498 K/uL (130-400); RDW Coefficient of Variation 23.3 % (11.5-14.5); RDW Standard Deviation 64.2 fL (36.4-46.3); Red Blood Count 4.27 M/uL (4.2-5.4); White Blood Count 5.33 K/uL (4.8-10.8)
[2020-02-02 10:41] LABS: INR 1.8 (0.9-1.1)
[2020-02-02 10:54] LABS: BUN Creatinine Ratio 11.3 (10-20); Calcium 9.2 mg/dl (8.5-10.1); Creatinine Clr Calc Pharmacy 42.3 ml/min; Est GFR (African American) 61.7; Est GFR (Non-African American) 53.2; Potassium 3.5 mmol/L (3.5-5.1)
[2020-02-02 10:58] LABS: Anisocytosis Present; Echinocytes 1+; Hypochromasia Present; Ovalocytes 1+; Polychromasia 1+; Tear Drop Cells 1+
[2020-02-02] MEDS ORDERED: INSULIN GLARGINE SOLOSTAR 100 UNITS/ML 3 ML PEN SC ONE (13:00)
--- NOTE | 2020-02-02 13:33 | History & Physical Bridge Note ---
Date of Service February 02, 2020 History & Physical Bridge Note I have examined the patient, reviewed the History & Physical and in the interval since the performance of the History & Physical I have noted the following changes of clinical significance: no changes noted
[2020-02-02] MEDS ORDERED: PROPOFOL IV EMULSION 10 MG/ML 20 ML VIAL IV ONE ×2 (15:03→15:27)
--- NOTE | 2020-02-02 15:34 | GI REPORT ---
Patient Name: Daniela Carter Procedure Date: 02/02/2020 3:02 PM Date of : 1955 Admit Type: Inpatient Age: 64 Gender: Female Attending MD: Caesar Chow MD Procedure: Colonoscopy Providers: Caesar Chow MD Referring MD: Beth Hester Indications: Rectal bleeding, IBD flare Medicines: Propofol per Anesthesia Complications: No immediate complications. Estimated Blood Loss: Estimated blood loss: none. Procedure: Pre-Anesthesia Assessment: - Prior to the procedure, a History and Physical was performed, and patient medications, allergies and sensitivities were reviewed. The patient's tolerance of previous anesthesia was reviewed. - The risks and benefits of the procedure and the sedation options and risks were discussed with the patient. All questions were answered and informed consent was obtained. - Patient identification and proposed procedure were verified prior to the procedure by the physician and the nurse. The procedure was verified in the procedure room. - Pre-procedure physical examination revealed no contraindications to sedation. After I obtained informed consent, the scope was passed under direct vision. Throughout the procedure, the patient's blood pressure, pulse, and oxygen saturations were monitored continuously. The Colonoscope was introduced through the anus and advanced to the terminal ileum. The colonoscopy was performed without difficulty. The patient tolerated the procedure well. The quality of the bowel preparation was good. The terminal ileum, ileocecal valve, appendiceal orifice, and rectum were photographed. Findings: The perianal and digital rectal examinations were normal. The terminal ileum appeared normal. Inflammation characterized by adherent blood, congestion (edema), friability, granularity, pseudopolyps and deep ulcerations was found as large patches in the rectum, transverse colon and at the cecum and confluent in the sigmoid and descending colon. The ascending colon was spared and had no inflammation. This was severe, and when compared to previous examinations, the findings are worsened and seems to be more consistent with Crohn's colitis.. Non-bleeding internal hemorrhoids were found during retroflexion. The hemorrhoids were small. Impression: - The examined portion of the ileum was normal. - Crohn's Colitis with severe active disease. Secondary nonresponder to therapy. - Non-bleeding internal hemorrhoids. - No specimens collected. Recommendation: - [facility] patient to [facility] for [facility] care. - Given clinical improvement, transition to PO Prednisone 60 mg for 4 weeks then will taper gradually as OP. - Will try and get her on Uceris if possible to minimize use of Prednisone. - Need to change from Entyvio to Stelara as OP. - Advance diet. - Recall GI if needed. Caesar Chow MD 02/02/2020 3:33:46 PM This report has been signed electronically. Note Initiated On: 02/02/2020 3:02 PM Number of Addenda: 0 I attest to the content of the Intraoperative Record and orders documented therein, exceptions below {[id number]}
--- NOTE | 2020-02-02 15:55 | Communication Note ---
Date of Service: February 02, 2020 Colonoscopy completed. Pt appears to may have Crohn's colitis instead of Ulcerative colitis. Plan: Upon DC, take Prednisone 60mg PO daily until she is seen back in GI clinic Stop Mesalamine and Entyvio Will start prior auth for Uceris and [facility] f/u with myself/Dr. Chow in 2 week's time.
--- NOTE | 2020-02-02 16:36 | Anesthesiology Progress Note ---
Date of Service February 02, 2020 Anesthesia Post Procedure Vital Signs Vital Signs: Temp Pulse Pulse Resp BP BP Pulse Ox 02/02/20 15:56 60 18 139/68 96 02/02/20 15:42 66 18 127/74 97 02/02/20 15:28 80 16 136/61 99 02/02/20 15:08 75 02/02/20 14:56 36.6 C 02/02/20 11:24 36.3 C L 58 L 17 131/77 97 02/02/20 09:00 54 L 02/02/20 07:52 36.4 C L 59 L 18 115/76 99 02/02/20 04:01 36.8 C 78 18 122/74 96 02/02/20 01:01 65 02/01/20 23:00 36.9 C 72 19 130/65 98 02/01/20 19:36 36.7 C 73 18 139/77 96 02/01/20 17:54 71 Pain Intensity Lower Abdomen: Pain Intensity: 2 Transfer of Care Handoff Completed per policy Notes Mental Status: alert / awake / arousable Patient Amnestic to Procedure: Yes Nausea / Vomiting: adequately controlled Pain: adequately controlled Airway Patency, RR, SpO2: stable & adequate BP & HR: stable & adequate Hydration State: stable & adequate Anesthetic Complications: no major complications apparent
--- NOTE | 2020-02-02 17:08 | Hospitalist Progress Note ---
Date of Service February 02, 2020 Assessment & Plan (1) Acute on chronic blood loss anemia: due to acute GI bleed /bleeding per rectum /blood in stool due to inflammatory bowel disease flare -Crohn's disease flare received 2 untis of PRBC tx H&H stable post tansfusion appreciate GI eval s/p colonoscopy : shows diffuse Crohn's colitis with ulcerative mucosa pt will need to be on PO prednisone per GI out pt follow up with GI for continued care of Crohn's disease (2) Abnormal CT scan of lung: CT chest shows : several noncalcified subpleural pulmonary nodules/masses on rt side with the largest measuring almost 5cm. There is no associated adenopathy. prior hx of breast CA appreciate input from Pulm recommend CT-guided biopsy will co oordinate with Radiology for the biopsy on wednesday for l CT-guided biopsy of 1 of these pulmonary lesions for cytology as well as microbiologic analysis including AFB stains and culture and fungal stains and culture hold anticoagulation till bipopsy (3) Multiple pulmonary nodules: (4) Ulcerative pancolitis: mangement as oulined above (5) 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: Coumadin kept on hold given vit K as pt presented with active GI bleed ac blood loss anemia has IVC filter continue to hold coumadin as will need CT guided biopsy of lung lesion on Wednesday anticoagualtion will be resumed when bleeding risk is minimum will D/w GI Admission and Anticipated Discharge Date Admission Date: January 31, 2020 Subjective Pt completed bowel prep, and had been NPO for colonoscopy today. Stool liquid, w blood. She denies n/v, cough, SOB, but having mild LLQ abd tenderness Results & Data Results & Data ([facility]) Vital Signs (Past 12 Hours) Vital Signs Temp Pulse Pulse Resp BP BP Pulse Ox 02/02/20 15:56 60 18 139/68 96 02/02/20 15:42 66 18 127/74 97 02/02/20 15:28 80 16 136/61 99 02/02/20 15:08 75 02/02/20 14:56 36.6 C 02/02/20 11:24 36.3 C L 58 L 17 131/77 97 02/02/20 09:00 54 L 02/02/20 07:52 36.4 C L 59 L 18 115/76 99
[2020-02-02] MEDS ORDERED: Nursing to Pharmacy Communication SCH (19:15)
[2020-02-03] MEDS: DOXYCYCLINE HYCLATE 100 MG in DEXTROSE 5% 100 ML IV SCH ×2 (02:20→13:35)
[2020-02-03] MEDS: LEVOTHYROXINE SODIUM 75 MCG TABLET PO SCH (05:34)
[2020-02-03] MEDS: LACTOBACILLUS ACIDOPHILUS (FLORANEX) TAB PO SCH ×3 (08:44→16:22)
[2020-02-03] MEDS: MESALAMINE 800 MG TABCR PO SCH ×2 (08:45→13:35)
[2020-02-03] MEDS: CHOLECALCIFEROL 1,000 UNITS 25 MCG TAB PO SCH (08:46)
[2020-02-03] MEDS: POTASSIUM CHLORIDE 20 MEQ TABCR PO SCH ×2 (08:46→21:00)
[2020-02-03] MEDS: SERTRALINE HCL 50 MG TABLET PO SCH (08:46)
[2020-02-03] MEDS: DICYCLOMINE HCL 10 MG CAP PO SCH ×2 (08:47→20:56)
[2020-02-03] MEDS: INSULIN ASPART 100 UNITS/ML 3 ML PEN SC SCH ×4 (08:52→20:56)
[2020-02-03] MEDS: INSULIN GLARGINE SOLOSTAR 100 UNITS/ML 3 ML PEN SC SCH (08:53)
[2020-02-03] MEDS: cefTRIAXone SODIUM 1,000 MG in DEXTROSE 5% 50 ML IV SCH (08:58)
[2020-02-03] MEDS: methylPREDNISolone 20 MG in SYRINGE 0 ML IV SCH ×2 (08:59→13:35)
[2020-02-03 10:22] LABS: Hematocrit (blood only) 28.6 % (37-47); Mean Corpuscular Hemoglobin 24.6 pg (25-34); Mean Corpuscular Hgb Conc 31.5 g/dL (32-36); Mean Corpuscular Volume 78.1 fL (80-100); Mean Platelet Volume 8.6 fL (7.4-10.4); Platelet Count 394 K/uL (130-400); RDW Coefficient of Variation 24.1 % (11.5-14.5); RDW Standard Deviation 67.8 fL (36.4-46.3); Red Blood Count 3.66 M/uL (4.2-5.4); White Blood Count 5.84 K/uL (4.8-10.8)
[2020-02-03 10:33] LABS: INR 1.7 (0.9-1.1); Prothrombin Time 17.9 Seconds (9.0-12.0)
[2020-02-03 10:43] LABS: BUN Creatinine Ratio 17.2 (10-20); Calcium 8.9 mg/dl (8.5-10.1); Creatinine Clr Calc Pharmacy 39.3 ml/min; Est GFR (Non-African American) 48.4; Potassium 3.9 mmol/L (3.5-5.1)
--- NOTE | 2020-02-03 11:08 | Pulmonology Progress Note ---
Date of Service February 03, 2020 Assessment & Plan (1) Abnormal CT scan of lung: Impression: 64-year-old female with remote history of breast cancer presenting now with several noncalcified subpleural pulmonary nodules/masses with the largest measuring almost 5cm. There is no associated adenopathy. She has been initiated on antibiotics but is been afebrile with a mild elevation in white blood cell count on presentation. She is admitted with colitis and signs of exacerbation of her Crohn's disease. Recommendations: 1. Multiple pulmonary nodules: The differential is broad and would include neoplastic and inflammatory and infectious etiologies. Given her history of breast cancer, cancer is on the differential. Manifestations of inflammatory bowel disease in the lungs are possible and organizing pneumonia is well described complication although the pattern is not entirely consistent with this. Multifocal infectious etiologies including fungal infection given the fact the patient has been on Biologics and prednisone for her Crohn disease are possible but I think would be less likely given the lack of fevers and associated symptoms. I would favor biopsy of these lesions. Given their location, CT-guided biopsy would be recommended, they are not likely to be amenable to bronchoscopy. I would recommend the biopsy be coordinated with radiology to be performed Wednesday. If not, it can be arranged in the outpatient setting. 2. Additional evaluation of the patient's medical issues and GI issues per GI and the primary medical service 3. Patient initially received antibiotics for pneumonia. Given her negative procalcitonin I would favor discontinuing the use and following clinically unless there needed for GI issues We will see again on Wednesday if patient remains in the hospital. Again if she is hospitalized on Wednesday would coordinate potential CT-guided biopsy of 1 of these pulmonary lesions for cytology as well as microbiologic analysis including AFB stains and culture and fungal stains and culture (2) Multiple pulmonary nodules: Admission and Anticipated Discharge Date Admission Date: January 31, 2020 Physical Exam Physical Exam: Physical exam deferred as the patient is currently in isolation for coronavirus testing. Please refer to admission notes for full details Constitutional: WD/WN, vitals as above Neck: trachea midline, no thyromegaly Respiratory: normal respiratory effort, lungs clear to auscultation Cardiovascular: RRR, no murmur, no edema Gastrointestinal (Abdomen): normal bowel sounds, soft, nontender, no hepato splenomegaly Musculoskeletal: Extremities: extremities normal to inspection Skin: no rashes, warm and dry Lymphatic: no cervical lymphadenopathy Results & Data Results & Data ([facility]) Vital Signs (Past 12 Hours) Vital Signs Temp Pulse Resp BP Pulse Ox 02/03/20 07:26 36.5 C 64 16 119/76 98 02/03/20 03:00 36.8 C 69 18 131/77 98 Laboratory Results 02/03/20 10:02 02/03/20 10:02 Diagnostic Findings Colonoscopy reviewed. Findings consistent with severe Crohn's disease of the ascending colon PG Care Time/CCT Total # of Minutes Spent Total Time Spent with Patient: Total time spent is greater than 50% in coordination of care (as documented) at patient's floor/unit and/or counseling patient: Coding Level of Care Code 98280 Subseq Hosp Care Lvl [address] scan of lung R91.8 Multiple pulmonary nodules R91.8
[2020-02-03] MEDS: predniSONE 20 MG TAB PO SCH (16:22)
--- NOTE | 2020-02-03 18:01 | Hospitalist Progress Note ---
Date of Service February 03, 2020 Assessment & Plan (1) Acute on chronic blood loss anemia: due to acute GI bleed /bleeding per rectum /blood in stool due to inflammatory bowel disease flare -Crohn's disease flare symptoms has improved received 2 untis of PRBC tx H&H stable post tansfusion @ 9 appreciate GI eval s/p colonoscopy : shows diffuse Crohn's colitis with ulcerative mucosa ordered for Prednisone 60 mg daily out pt follow up with GI for continued care of Crohn's disease (2) Abnormal CT scan of lung: CT chest shows : several noncalcified subpleural pulmonary nodules/masses on rt side with the largest measuring almost 5cm. There is no associated adenopathy. prior hx of breast CA appreciate input from Pulm recommend CT-guided biopsy needs to be co ordianted with Radiology for the biopsy on wednesday for l CT- guided biopsy of 1 of these pulmonary lesions for cytology as well as microbiologic analysis including AFB stains and culture and fungal stains and culture hold anticoagulation till bipopsy (3) Multiple pulmonary nodules: (4) Ulcerative pancolitis: mangement as oulined above (5) 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: Coumadin kept on hold given vit K as pt presented with active GI bleed ac blood loss anemia has IVC filter continue to hold coumadin as will need CT guided biopsy of lung lesion on Wednesday anticoagualtion will be resumed when bleeding risk is minimum will D/w GI Admission and Anticipated Discharge Date Admission Date: January 31, 2020 Subjective Diarrhea, stool has resolved, has minimum blood in stool, no abdominal pain no fever or chills, denies of any shortness of breath Tolerating diet well Physical Exam Physical Exam: Physical exam deferred as the patient is currently in isolation for coronavirus testing. Please refer to admission notes for full details Constitutional: WD/WN, vitals as above well groomed, cooperative and comfortable Eyes: PERRL, conjunctivae normal, anicteric sclerae Neck: trachea midline, no thyromegaly normal visual inspection and trachea midline; neck extension not limited Respiratory: normal respiratory effort, lungs clear to auscultation normal respiratory effort Auscultation: lungs clear to auscultation bilaterally Cardiovascular: RRR, no murmur, no edema Rate/Rhythm: regular rate and regular rhythm Heart Sounds: no murmur Gastrointestinal (Abdomen): normal bowel sounds, soft, nontender, no hepatosplenomegaly Inspection/Auscultation: normal bowel sounds and + hypoactive bowel sounds Percussion/Palpation: abdomen soft Musculoskeletal: Spine: normal cervical ROM Skin: no rashes, warm and dry Neurologic: moves all extremities Psychiatric: A+Ox3, euthymic affect Orientation: alert and oriented x 3 Results & Data Results & Data ([facility]) Vital Signs (Past 12 Hours) Vital Signs Temp Pulse Resp BP Pulse Ox 02/03/20 17:15 36.6 C 75 16 126/75 96 02/03/20 15:54 36.6 C 64 17 119/67 98 02/03/20 07:26 36.5 C 64 16 119/76 98
[2020-02-03] MEDS: ATORVASTATIN 40 MG TAB PO SCH (20:57)
[2020-02-03] MEDS: IRON POLYSACCHARIDE COMPLEX 150 MG CAPSULE PO SCH (20:58)
[2020-02-03] MEDS: COLESTIPOL HCL 1 GM TAB PO SCH (20:59)
[2020-02-04 06:19] LABS: Hematocrit (blood only) 29.6 % (37-47); Hemoglobin 9.3 g/dL (12.0-16.0)
[2020-02-04 06:30] LABS: INR 1.6 (0.9-1.1); Prothrombin Time 16.2 Seconds (9.0-12.0)
[2020-02-04] MEDS: LEVOTHYROXINE SODIUM 75 MCG TABLET PO SCH (06:31)
[2020-02-04 06:52] LABS: Creatinine Clr Calc Pharmacy 58.8 ml/min; Est GFR (Non-African American) 78.6; Potassium 4.7 mmol/L (3.5-5.1)
[2020-02-04] MEDS: INSULIN GLARGINE SOLOSTAR 100 UNITS/ML 3 ML PEN SC SCH (09:06)
[2020-02-04] MEDS: INSULIN ASPART 100 UNITS/ML 3 ML PEN SC SCH ×4 (09:07→21:20)
[2020-02-04] MEDS: LACTOBACILLUS ACIDOPHILUS (FLORANEX) TAB PO SCH ×3 (09:09→17:50)
[2020-02-04] MEDS: CALCIUM 600MG + VIT D 400 IU TAB PO SCH (09:09)
[2020-02-04] MEDS: POTASSIUM CHLORIDE 20 MEQ TABCR PO SCH ×2 (09:10→21:18)
[2020-02-04] MEDS: DICYCLOMINE HCL 10 MG CAP PO SCH ×2 (09:11→21:18)
[2020-02-04] MEDS: IRON POLYSACCHARIDE COMPLEX 150 MG CAPSULE PO SCH ×2 (09:11→21:18)
[2020-02-04] MEDS: CHOLECALCIFEROL 1,000 UNITS 25 MCG TAB PO SCH (09:12)
[2020-02-04] MEDS: SERTRALINE HCL 50 MG TABLET PO SCH (09:13)
[2020-02-04] MEDS: predniSONE 20 MG TAB PO SCH (09:14)
[2020-02-04] MEDS: FUROSEMIDE 20 MG TAB PO SCH (09:26)
[2020-02-04] MEDS: cefTRIAXone SODIUM 1,000 MG in DEXTROSE 5% 50 ML IV SCH (09:28)
[2020-02-04] MEDS: COLESTIPOL HCL 1 GM TAB PO SCH ×3 (10:05→21:18)
--- NOTE | 2020-02-04 10:30 | Communication Note ---
Date of Service: February 04, 2020 Discussed with on-call radiologist, Patient will need a CT-guided lung biopsy for 4.9 cm right lower lobe consolidation/nodule noted on CT chest noncontrast on 01/31/[address]-guided biopsy 10 AM tomorrow, tentatively N.p.o. past midnight INR 1.6 today, patient will not need vitamin K, for CT-guided lung biopsy Continue to hold Coumadin till the procedure is done Beth Hester MD
--- NOTE | 2020-02-04 13:15 | Hospitalist Progress Note ---
Date of Service February 04, 2020 Assessment & Plan (1) Acute on chronic blood loss anemia: Hemoglobin has been stable presents for transfusion at 9 Minimum blood in stool acute GI bleed /bleeding per rectum /blood in stool due to inflammatory bowel disease flare -Crohn's disease flare received 2 untis of PRBC tx appreciate GI eval s/p colonoscopy : shows diffuse Crohn's colitis with ulcerative mucosa Patient is continued p.o. prednisone 60 mg daily out pt follow up with GI for continued care of Crohn's disease (2) Abnormal CT scan of lung: CT chest shows : several noncalcified subpleural pulmonary nodules/masses on rt side with the largest measuring almost 5cm. There is no associated adenopathy. prior hx of breast CA appreciate input from Pulm recommend CT-guided biopsy Discussed with radiology, Tentatively scheduled for CT-guided biopsy of lung nodule tomorrow a.m. by radiology Possible inflammatory focus rule out metastatic nodule given history of breast cancer -Biopsy sample will need pathology/cytology as well as microbiologic analysis including AFB stains and culture and fungal stains and culture hold anticoagulation till bipopsy INR 1.6 (3) Multiple pulmonary nodules: (4) Ulcerative pancolitis: mangement as oulined above (5) 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: Coumadin kept on hold given vit K as pt presented with active GI bleed ac blood loss anemia 1.6, patient will not need any further vitamin K for lung biopsy tomorrow has IVC filter continue to hold coumadin as will need CT guided biopsy of lung lesion on Wednesday anticoagualtion will be resumed when bleeding risk is minimum will D/w GI CODE STATUS: Full code DVT prophylaxis: SCD and teds Disposition: Patient lives at [facility] Continue PT OT Patient will be discharged home/independent living when medically stable Admission and Anticipated Discharge Date Admission Date: January 31, 2020 Subjective having intermittent loose bowel movements, Not much blood in stool, experiences occasional lower abdomen cramps with bowel movements No fever or chills, no nausea vomiting, tolerating diet well Complaint of shortness of breath no cough Physical Exam Physical Exam: Physical exam deferred as the patient is currently in isolation for coronavirus testing. Please refer to admission notes for full details Constitutional: WD/WN, vitals as above well groomed, cooperative and comfortable Eyes: PERRL, conjunctivae normal, anicteric sclerae Neck: trachea midline, no thyromegaly normal visual inspection and trachea midline Respiratory: normal respiratory effort, lungs clear to auscultation normal respiratory effort Auscultation: lungs clear to auscultation bilaterally Cardiovascular: RRR, no murmur, no edema Rate/Rhythm: regular rate and regular rhythm Heart Sounds: no murmur Gastrointestinal (Abdomen): Inspection/Auscultation: normal bowel sounds Percussion/Palpation: abdomen soft Musculoskeletal: Spine: normal cervical ROM Extremities: extremities normal to inspection; full ROM of extremities Skin: no rashes, warm and dry no jaundice Neurologic: moves all extremities Psychiatric: A+Ox3, euthymic affect Orientation: alert and oriented x 3 Results & Data Results & Data ([facility]) Vital Signs (Past 12 Hours) Vital Signs Temp Pulse Resp BP Pulse Ox 02/04/20 07:24 36.5 C 54 L 16 122/72 99
[2020-02-04] MEDS: ATORVASTATIN 40 MG TAB PO SCH (21:18)
[2020-02-05] MEDS ORDERED: Nursing to Pharmacy Communication SCH ×4 (01:00→16:30)
[2020-02-05] MEDS: LEVOTHYROXINE SODIUM 75 MCG TABLET PO SCH (05:50)
[2020-02-05] MEDS ORDERED: INSULIN ASPART 100 UNITS/ML 3 ML PEN SC SCH ×3 (06:00→12:00)
[2020-02-05] MEDS: LACTOBACILLUS ACIDOPHILUS (FLORANEX) TAB PO SCH ×3 (09:10→16:14)
[2020-02-05] MEDS: POTASSIUM CHLORIDE 20 MEQ TABCR PO SCH ×2 (09:11→21:25)
[2020-02-05] MEDS: COLESTIPOL HCL 1 GM TAB PO SCH ×3 (09:11→22:22)
[2020-02-05] MEDS: SERTRALINE HCL 50 MG TABLET PO SCH (09:12)
[2020-02-05] MEDS: CALCIUM 600MG + VIT D 400 IU TAB PO SCH (09:12)
[2020-02-05] MEDS: IRON POLYSACCHARIDE COMPLEX 150 MG CAPSULE PO SCH ×2 (09:12→21:25)
[2020-02-05] MEDS: FUROSEMIDE 20 MG TAB PO SCH (09:12)
[2020-02-05] MEDS: predniSONE 20 MG TAB PO SCH (09:13)
[2020-02-05] MEDS: CHOLECALCIFEROL 1,000 UNITS 25 MCG TAB PO SCH (09:14)
[2020-02-05] MEDS: DICYCLOMINE HCL 10 MG CAP PO SCH ×2 (09:14→21:25)
[2020-02-05] MEDS: INSULIN GLARGINE SOLOSTAR 100 UNITS/ML 3 ML PEN SC SCH (09:17)
[2020-02-05] MEDS: cefTRIAXone SODIUM 1,000 MG in DEXTROSE 5% 50 ML IV SCH (09:17)
[2020-02-05 09:56] LABS: INR 1.4 (0.9-1.1); Prothrombin Time 14.6 Seconds (9.0-12.0)
--- NOTE | 2020-02-05 10:52 | Pulmonology Progress Note ---
Date of Service February 05, 2020 Assessment & Plan (1) Abnormal CT scan of lung: Impression: 64-year-old female with remote history of breast cancer presenting now with several noncalcified subpleural pulmonary nodules/masses with the largest measuring almost 5cm. There is no associated adenopathy. She has been initiated on antibiotics but is been afebrile with a mild elevation in white blood cell count on presentation. She is admitted with colitis and signs of exacerbation of her Crohn's disease. Patient with bibasilar multifocal consolidation as well as pulmonary nodules. Appears to multifocal pneumonitis No hypoxia. Negative procalcitonin Order was placed for CT guided biopsy of the nodules to rule out fungal infection versus other etiology Discussed with radiologist this morning with the conclusion that there are no easily biopsied nodes At this time, patient is asymptomatic We will continue treatment of pneumonia with Augmentin for [address] Haley will be glad to follow patient in outpatient clinic with follow-up CT scan in 3 weeks. (2) Multiple pulmonary nodules: Patient has new nodules on CT scan this admission which could represent inflammatory process or neoplastic etiology. Patient has history of breast cancer so metastatic spread cannot be ruled out Patient also has a history of Crohn's disease is not on Biologics so we cannot rule out fungal infection either. At this time the nodules are not amenable to biopsy No utility to bronchoscopy at this time. N.p.o. order to be canceled and diet can be started. We will treat empirically with Augmentin for [address] scan of the chest in 3 weeks with outpatient follow-up with Dr. Haley Thank you for including us in the care of this patient. From a pulmonary perspective patient can be discharged home. We will sign off at this time Please feel free to reconsult as needed Admission and Anticipated Discharge Date Admission Date: January 31, 2020 Subjective Attending: Dr. Haley This is a 64-year-old female that was admitted and found to have multiple pulmonary nodules. Also appears to have right lower lobe pneumonia. The plan was to have CT-guided needle biopsy of the nodules. Discussion with radiology indicates that these are not able to be easily biopsied due to location. Patient states that she is completely asymptomatic from a pulmonary perspective. She has no hemoptysis. She has no shortness of breath. She has no dyspnea with exertion. She is oxygenating well on room air. She denies any chest pain or tightness. She has no other respiratory complaints. Review of Systems Review of Systems: All systems reviewed & are unremarkable except as noted in HPI & below Physical Exam Physical Exam: GENERAL : No acute distress. Pleasant EYES: No icterus, gaze conjugate NOSE: No evidence of epistaxis MOUTH: No lesions or candidiasis. Mucosa is dry NECK: Supple. No stridor LUNGS: CTA B/L, no wheezes, rales or rhonchi. It should be noted that there was crackling in the right lower lobe. This resolved with deep inspiration and forceful cough. HEART: Regular, rate controlled ABDOMEN: Soft, NT, ND, BS Present EXTREMITIES: No LE edema, pedal pulses intact NEURO: A&OX3 Results & Data Results & Data ([facility]) Vital Signs (Past 12 Hours) Vital Signs Temp Pulse Resp BP Pulse Ox 02/05/20 07:00 36.4 C L 66 16 124/71 98 02/04/20 23:53 36.5 C 59 L 16 129/73 99 Laboratory Results 02/04/20 05:40 02/04/20 05:40 INR 1.4 (0.9-1.1) H 02/05/20 09:[address] OF THE CHEST WITHOUT IV CONTRAST CLINICAL HISTORY: Pneumonia. COMPARISON STUDY: Chest radiograph April 18, 2018. Chest radiograph January 04, 2020. CT DOSE: 234.25 mGy.cm TECHNIQUE: Axial images of the chest were obtained without IV contrast. Images were reviewed in the axial, sagittal, and coronal planes. IV contrast was not administered for this examination. Automated exposure control was utilized for the study. A dose lowering technique was utilized adhering to the principles of ALARA. FINDINGS: No enlarged axillary, mediastinal or hilar lymph nodes are present. Mild cardiomegaly is noted. There is moderate coronary artery calcification. There is no pericardial effusion. No pneumothorax or pleural effusion is noted. The central airways are patent. Note is made of multiple focal nodular airspace opacities, several of which have associated groundglass opacity. The largest is a 4.9 cm right lower lobe focus. These are predominantly within the bilateral lower lobes. There is a 9 mm focus within the right middle lobe. These are predominantly subpleural in location. There is no cavitation. Bony thorax is unremarkable. Upper abdomen is unremarkable. IMPRESSION: Multifocal basilar and peripheral predominant consolidation, the largest of which is a 4.9 cm right lower lobe focus of consolidation with groundglass opacity. The appearance is nonspecific but favors multifocal pneumonia. No cavitation to strongly suggest septic emboli however this remains within the differential. An inflammatory process could appear similar. A neoplastic etiology is considered much less likely however a follow-up chest CT in one month to ensure resolution is recommended. Electronically signed by: Douglas Snyder M.D. 01/31/2020 8:27 PM PG Care Time/CCT Total # of Minutes Spent Total Time Spent with Patient: Total time spent is greater than 50% in coordination of care (as documented) at patient's floor/unit and/or counseling patient: 40 minutes including discussion with radiology, hospitalist provider, and with patient Coding Level of Care Code 91060 Subseq Hosp Care Lvl [address] scan of lung R91.8 Multiple pulmonary nodules R91.8 Time Spent (min) 40
[2020-02-05] MEDS ORDERED: WARFARIN SOD 7.5 MG TAB PO ONE (11:14)
[2020-02-05] MEDS ORDERED: WARFARIN SOD 5 MG TAB PO SCH (16:00)
--- NOTE | 2020-02-05 17:26 | Hospitalist Progress Note ---
Date of Service February 05, 2020 Assessment & Plan (1) Acute on chronic blood loss anemia: acute GI bleed /bleeding per rectum /blood in stool due to inflammatory bowel disease flare -Crohn's disease flare Hemoglobin has been stable presents for transfusion at 9 Minimum blood in stool received 2 untis of PRBC tx appreciate GI eval s/p colonoscopy : shows diffuse Crohn's colitis with ulcerative mucosa Patient is continued p.o. prednisone 60 mg daily out pt follow up with GI for continued care of Crohn's disease (2) Abnormal CT scan of lung: CT chest shows : several noncalcified subpleural pulmonary nodules/masses on rt side with the largest measuring almost 5cm. There is no associated adenopathy. prior hx of breast CA appreciate input from Pulm initial plan was to do CT guided biopsy of rt lower lobe lung nodule after disussion with radiology and pulm team -the 5 cm nodule appears to be most likely infectious /inflammtory origin recommend repeat CT chest in 2-3 months if persistent lung nodule noted will need biopsy (3) Multiple pulmonary nodules: (4) Ulcerative pancolitis: mangement as oulined above (5) 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: Coumadin kept on hold given vit K as pt presented with active GI bleed ac blood loss anemia 1.6, patient will not need any further vitamin K for lung biopsy tomorrow has IVC filter coumadin resumed CODE STATUS: Full code DVT prophylaxis: SCD and teds Disposition: plan to discharge home tomorrow Admission and Anticipated Discharge Date Admission Date: January 31, 2020 Subjective had 2-3 loose bowel movement today minimum blood in stool no fever or chills no nausea or vomiting or abdominal pain Review of Systems Review of Systems: All systems reviewed & are unremarkable except as noted in HPI & below Physical Exam Physical Exam: Physical exam deferred as the patient is currently in isolation for coronavirus testing. Please refer to admission notes for full details Constitutional: WD/WN, vitals as above well groomed, cooperative and comfortable Eyes: PERRL, conjunctivae normal, anicteric sclerae Neck: trachea midline, no thyromegaly normal visual inspection and trachea midline Respiratory: normal respiratory effort, lungs clear to auscultation normal respiratory effort Auscultation: lungs clear to auscultation bilaterally Cardiovascular: RRR, no murmur, no edema Rate/Rhythm: regular rate and regular rhythm Heart Sounds: no murmur Gastrointestinal (Abdomen): normal bowel sounds, soft, nontender, no hepatosplenomegaly Inspection/Auscultation: normal bowel sounds Percussion/Palpation: abdomen soft Musculoskeletal: Extremities: extremities normal to inspection; full ROM of extremities Skin: no rashes, warm and dry Psychiatric: A+Ox3, euthymic affect Orientation: alert and oriented x 3 Results & Data Results & Data ([facility]) Vital Signs (Past 12 Hours) Vital Signs Temp Pulse Resp BP BP Pulse Ox 02/05/20 15:52 36.6 C 70 14 100/62 98 02/05/20 07:00 36.4 C L 66 16 124/71 98
[2020-02-05] MEDS: INSULIN ASPART 100 UNITS/ML 3 ML PEN SC SCH ×2 (18:37→21:26)
[2020-02-05] MEDS: ATORVASTATIN 40 MG TAB PO SCH (21:25)
[2020-02-06] MEDS: LEVOTHYROXINE SODIUM 75 MCG TABLET PO SCH (06:26)
[2020-02-06 08:11] LABS: INR 1.9 (0.9-1.1); Prothrombin Time 19.2 Seconds (9.0-12.0)
[2020-02-06] MEDS: cefTRIAXone SODIUM 1,000 MG in DEXTROSE 5% 50 ML IV SCH (09:24)
[2020-02-06] MEDS: COLESTIPOL HCL 1 GM TAB PO SCH ×2 (09:29→13:00)
[2020-02-06] MEDS: predniSONE 20 MG TAB PO SCH (09:29)
[2020-02-06] MEDS: IRON POLYSACCHARIDE COMPLEX 150 MG CAPSULE PO SCH (09:29)
[2020-02-06] MEDS: LACTOBACILLUS ACIDOPHILUS (FLORANEX) TAB PO SCH ×2 (09:29→13:00)
[2020-02-06] MEDS: CHOLECALCIFEROL 1,000 UNITS 25 MCG TAB PO SCH (09:29)
[2020-02-06] MEDS: CALCIUM 600MG + VIT D 400 IU TAB PO SCH (09:30)
[2020-02-06] MEDS: DICYCLOMINE HCL 10 MG CAP PO SCH (09:30)
[2020-02-06] MEDS: FUROSEMIDE 20 MG TAB PO SCH (09:31)
[2020-02-06] MEDS: POTASSIUM CHLORIDE 20 MEQ TABCR PO SCH (09:32)
[2020-02-06] MEDS: SERTRALINE HCL 50 MG TABLET PO SCH (09:32)
[2020-02-06] MEDS: INSULIN GLARGINE SOLOSTAR 100 UNITS/ML 3 ML PEN SC SCH (09:33)
[2020-02-06] MEDS: INSULIN ASPART 100 UNITS/ML 3 ML PEN SC SCH ×2 (09:35→13:03)
--- NOTE | 2020-02-06 14:31 | Discharge Summary ---
Date of Service February 06, 2020 Admission HPI Per Admitting Provider DICTATED BY: Tanner Castillo MD DATE OF ADMISSION: 01/31/2020 CHIEF COMPLAINT: Abdominal pain, diarrhea, and blood in the stools. HISTORY OF PRESENT ILLNESS: A 64-year-old female with past medical history significant for Crohn's disease who was recently in the hospital for Crohn's flare and discharged on 01/04/2020 with prednisone taper, history of diabetes, hypothyroidism, hyperlipidemia, history of DVT and pulmonary embolism, on Coumadin, history of pancolitis, history of recurrent C. diff, history of chronic kidney disease stage III. The patient lives alone, walks without support. The patient states since discharge she is on prednisone taper, but she says the symptoms slowly increased; in these last 4-5 days, she is having several episodes of bloody bowel movements and abdominal discomfort in the lower abdomen and nausea. Currently, abdominal pain is about 3/10 in severity. Denies any fever, chills. No chest pain, no shortness of breath, no cough, no headache, no blurred vision, no runny nose, no sore throat, no difficulty swallowing.Denies loss of sense of smell or taste. She is feeling very weak and tired and dizzy because she is getting dehydrated . Currently resting comfortably and hemodynamically stable. Her hemoglobin is 8.4, it was 8.5 at the time of discharge. Creatinine is 1.2, close to baseline. CT scan showed again colitis and also shows multifocal consolidation in the lower lung. CT chest shows multifocal pneumon Principal Diagnosis CROHN'S DISEASE FLARE PULMONARY NODULE Discharge Exam Constitutional WD/WN, vitals as above well groomed, cooperative and comfortable Eyes PERRL, conjunctivae normal, anicteric sclerae ENMT Mallampati Class: III Neck trachea midline, no thyromegaly normal visual inspection and trachea midline Respiratory normal respiratory effort, lungs clear to auscultation normal respiratory effort Auscultation: lungs clear to auscultation bilaterally Cardiovascular RRR, no murmur, no edema Rate/Rhythm: regular rate and regular rhythm Heart Sounds: no murmur Gastrointestinal (Abdomen) normal bowel sounds, soft, nontender, no hepatosplenomegaly Inspection/Auscultation: normal bowel sounds Percussion/Palpation: abdomen soft Musculoskeletal Spine: normal cervical ROM Extremities: extremities normal to inspection; full ROM of extremities Skin no rashes, warm and dry no jaundice Neurologic moves all extremities Psychiatric A+Ox3, euthymic affect Orientation: alert and oriented x 3 Lymphatic no lymphedema and no cervical lymphadenopathy Discharge Data Allergies Allergy/AdvReac Type Severity Reaction Status Date / Time aztreonam [From Azactam] Allergy Intermediate flushed Verified 02/02/20 14:55 /itching dorzolamide Allergy Unknown EYE LID Verified 02/02/20 14:55 SWELLING latanoprost Allergy Unknown EYE LID Verified 02/02/20 14:55 SWELLING Penicillins Allergy Unknown Rash Verified 02/02/20 14:55 thimerosal Allergy Unknown Unknown Verified 02/02/20 14:55 timolol Allergy Unknown EYE LID Verified 02/02/20 14:55 SWELLING Consultations 01/31/20 20:41 ED Decision to Admit Stat 02/01/20 00:05 Consult Case Management - Discharge Planning Routine 02/01/20 08:00 Consult Gastroenterology Routine Consult Pulmonology Routine Procedures Performed Operation Date: 02/02/20 15:00 Actual Procedures p Colonoscopy - Caesar Chow MD Ordered Studies 01/31/20 18:09 CT abd pelvis IV con only Stat 01/31/20 20:02 CT chest wo con Stat Hospital Course (1) Acute on chronic blood loss anemia: acute GI bleed /bleeding per rectum /blood in stool due to inflammatory bowel disease flare -Crohn's disease flare Hemoglobin has been stable presents for transfusion at 9 Minimum blood in stool received 2 untis of PRBC tx appreciate GI eval s/p colonoscopy : shows diffuse Crohn's colitis with ulcerative mucosa Patient is discharged with p.o. prednisone 60 mg daily out pt follow up with GI for continued care of Crohn's disease (2) Abnormal CT scan of lung: CT chest shows : several noncalcified subpleural pulmonary nodules/masses on rt side with the largest measuring almost 5cm. There is no associated adenopathy. prior hx of breast CA appreciate input from Pulm initial plan was to do CT guided biopsy of rt lower lobe lung nodule after disussion with radiology and pulm team -the 5 cm nodule appears to be most likely infectious /inflammtory origin pt is discharged with 2 weeks of PO Augmentin repeat CT chest with contrast in 3 weeks and office follow up with Pulmonology Dr Haley if persistent lung nodule noted will need biopsy (3) Multiple pulmonary nodules: (4) Ulcerative pancolitis: mangement as oulined above (5) 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: has IVC filter coumadin resumed CODE STATUS: Full code DVT prophylaxis: Coumadin Disposition: discharged home today Total Time Total Time Spent Total Time Spent (In Minutes): 35 mins Total Time Includes: Examination of the Patient, Discharge Planning and Medication Reconciliation Discharge Plan Discharge Items Patient Disposition: Home - Self-Care Reason For Visit: DIARRHEA,BLOOD IN STOOL Discharge Diagnosis: Crohn's disease flare Lung Nodules Activity: Resume your previous activity Non-emergency contact: Primary Care Provider Call non-emergency contact if: you have any medication questions Follow-up/Referrals: Kenneth Haley MD [Physician] - 02/27/20 11:15 am (Follow up in 3 weeks will need repeat CT chest with contrast to asses lung nodules) Isaias Templeton MD [Primary Care Provider] - 02/12/20 11:20 am (02/12/2020 11:20 AM Provider Isaias Templeton MD Department Family [facility] ) Mera Ng [Nurse Practitioner] - 02/14/20 7:45 am (Follow up with GI in 1 week , please call office to confirm the appointment ) Diet: Low Fat Addtl Attending Provider Instructions: Antibiotic for possible pneumonia : Augmentin 1 tablet twice daily for [address] scan of the chest in 3 weeks with outpatient follow-up with Dr. Haley DO not take mesalamine and Optivo continue to take Prednisode 60 mg 1 tablet daily till seen by GI Pending Studies at Discharge: No Stand-Alone Forms: [facility], Smoking Cessation Medications and DC Order Prescriptions: New prednisone 20 mg Tablet 60 mg PO DAILY 30 Days Qty: 90 RF: 0 amoxicillin-pot clavulanate [Augmentin] 875-125 mg tablet 1 tab PO BID 14 Days Qty: 28 RF: 0 famotidine 40 mg tablet 40 mg PO DAILY Qty: 30 RF: 3 Continued furosemide [Lasix] 20 mg Tablet 20 mg PO QAM RF: 0 Probiotic Acidophilus Biobeads 12.9 mg (2 billion cell) Tablet,Delayed Release (Dr/Ec) 1 tab PO TIDM RF: 0 sertraline [Zoloft] 50 mg Tablet 50 mg PO QAM RF: 0 levothyroxine 75 mcg Tablet 75 mcg PO QAM RF: 0 cholecalciferol (vitamin D3) [Vitamin D3] 1,000 unit Tablet 1,000 unit PO QAM RF: 0 calcium citrate-vitamin D3 [Citracal-D3 Petites] 200 mg calcium -250 unit Ta blet 1 tab PO QAM RF: 0 warfarin 4 mg tablet 2 - 4 mg PO DIRECTED RF: 0 atorvastatin 40 mg tablet 40 mg PO HS RF: 0 anastrozole 1 mg Tablet 1 mg PO QAM RF: 0 potassium chloride [Klor-Con M20] 20 mEq Tablet,Er Particles/Crystals 20 meq PO BID RF: 0 colestipol 1 gram Tablet 1 g PO TID RF: 0 trazodone 50 mg tablet 50 mg PO HS PRN (Reason: Sleep) RF: 0 Lantus Solostar U-100 Insulin 100 unit/mL (3 mL) insulin pen 22 unit SUBCUT QAM RF: 0 polysaccharide iron complex [Ferrex 150] 150 mg iron capsule 150 mg PO BID RF: 0 dicyclomine 10 mg capsule 10 mg PO AMHS RF: 0 Discontinued Entyvio 300 mg Recon Soln 300 mg IV .Q6 MONTHS RF: 0 pantoprazole 40 mg tablet,delayed release (DR/EC) 40 mg PO QAM RF: 0 prednisone 5 mg tablet See Rx Instructions .ROUTE .COMPLEX Qty: 168 RF: 0 mesalamine 800 mg tablet,delayed release (DR/EC) 1,600 mg PO TID 30 Days Qty: 180 RF: 5 Discharge Orders: Discharge Order (Routine); Ordered 02/06/20 Ordered By: Beth Montana/Other Patient Handouts: Long-Term Complications of Diabetes, Managing Type 2 Diabetes, Healthy Meals for Diabetes, Understanding Carbohydrates, Preventing Deep Vein Thrombosis, Diabetes: The Benefits of Exercise, Managing Diabetes: The A1C Test Admission Data Admit Date/Time: 01/31/20 22:47 Attending Provider: Beth Hester Admit Provider: Tanner Castillo Primary Care Provider: Isaias Templeton Other Providers: Tanner Castillo ; Rajeev Orr ; Nasima Camarena ; Virgil Diamond ; Asia Amezcua ; Florian Greco ; Lacie Jacobson ; Pili Mcintosh ; Cheyenne Tovar ; Miugel Tsai ; Alonso Felton ; Stacia Castaneda ; Katherine Cardoso ; Mera Ng ; Natacha Sánchez ; Caesar Chow ; Heidi Ivory Other Interventions: Discharge Summary Assessment (RN) Last Done: 02/06/20 14:26 DC Date/Time DO NOT enter until pt leaves facility: 02/06/20 15:18
[2020-02-06 18:34] LABS: Fungitell (1-3)-B-D-Glucan <31
== END 2020-02-06 15:18 | disposition home or self-care (01) | DRG 385 ==
LOC: ED 17:42 → SUATTDRO 22:47 → 2W 22:47 → 3N 02-03 17:14

== ENCOUNTER 2020-02-15 04:00 | Inpatient (IN) ==
--- NOTE | 2020-02-15 04:22 | Emergency Department Note ---
History of Present Illness General Chief complaint: GI Bleed Stated complaint: GI BLEED/ABDOMINAL CRAMPING Time Seen by Provider: 02/15/20 04:08 Source: patient Mode of arrival: EMS Limitations: no limitations History of Present Illness Provider complaint: GI bleed Onset (ago): hour(s) 2 Location: abdomen Radiation: non-radiation Severity: moderate and similar to prior episodes Pain Consistency: + colicky Relieved By: + none Exacerbated By: + none Associated symptoms: + nausea/vomiting and + shortness of breath; no fever/chills Treatments prior to arrival: none This is a 64-year-old female who presents via EMS from home due to concern for recurrent GI bleed. Patient states she has a history of Crohn's disease and is followed by GI. Patient was recently admitted and did have a colonoscopy which showed inflammation. Patient was started on prednisone at that time. Patient does take warfarin daily due to history of blood clots, she also has an IVC filter. Patient states during the admission she was found to have nodules on her lungs and was started on antibiotics for possible atypical pneumonia. Patient has been taking those daily. Patient saw her family doctor on Wednesday and follow-up as well as her GI doctor today and at that time everything was fine. Patient states she woke up between 2 and 230 with sudden lower abdominal pain and the need to defecate. Patient states in route to the bathroom she began to have GI bleeding and had bloody diarrhea. Patient states she was also passing clots that she estimates were half the size of her closed fist. Patient states she began slightly lightheaded and slightly short of breath. Patient states this is similar to prior episodes of bleeding. Patient has previously needed transfusions. Patient states she has been transfused 3 times over the last 2 months. Pt seen during a time of high acuity and national emergency pandemic while wearing PPE. Home Medications Home Medications Medication Instructions Recorded Confirmed Type calcium citrate-vitamin D3 1 tab PO QAM 05/12/18 02/15/20 History [Citracal-D3 Petites] cholecalciferol (vitamin D3) 1,000 unit PO QAM 05/12/18 02/15/20 History [Vitamin D3] levothyroxine 75 mcg PO DAILYBB 05/12/18 02/15/20 History Probiotic Acidophilus Biobeads 1 tab PO TIDM 03/22/19 02/15/20 History furosemide [Lasix] 20 mg PO QAM 03/22/19 02/15/20 History sertraline [Zoloft] 50 mg PO QAM 03/22/19 02/15/20 History anastrozole 1 mg PO QAM 07/21/19 02/15/20 History atorvastatin 40 mg PO HS 07/21/19 02/15/20 History colestipol 1 g PO TID 07/21/19 02/15/20 History potassium chloride [Klor-Con M20] 20 meq PO BID 07/21/19 02/15/20 History warfarin See Rx Instructions .ROUTE .COMPLEX 07/21/19 02/15/20 History Lantus Solostar U-100 Insulin 22 unit SUBCUT QAM 01/01/20 02/15/20 History trazodone 50 mg PO HS PRN 01/01/20 02/15/20 History polysaccharide iron complex 150 mg PO BID 01/31/20 02/15/20 History [Ferrex 150] amoxicillin-pot clavulanate 1 tab PO BID 14 Days #28 tab 02/06/20 02/15/20 Rx [Augmentin] prednisone 60 mg PO DAILY 30 Days #90 tab 02/06/20 02/15/20 Rx budesonide 9 mg PO DAILY 02/15/20 02/15/20 History fluocinonide 1 applic TOPICAL BID PRN 02/15/20 02/15/20 History pantoprazole 40 mg PO DAILY 02/15/20 02/15/20 History triamcinolone acetonide 1 applic TOPICAL BID PRN 02/15/20 02/15/20 History Allergies Allergy/AdvReac Type Severity Reaction Status Date / Time aztreonam [From Azactam] Allergy Intermediate flushed Verified 02/02/20 14:55 /itching dorzolamide Allergy Unknown EYE LID Verified 02/02/20 14:55 SWELLING latanoprost Allergy Unknown EYE LID Verified 02/02/20 14:55 SWELLING Penicillins Allergy Unknown Rash Verified 02/02/20 14:55 thimerosal Allergy Unknown Unknown Verified 02/02/20 14:55 timolol Allergy Unknown EYE LID Verified 02/02/20 14:55 SWELLING Past Med/Surg History Medical History Acute hyponatremia (Inactive) Acute kidney injury (Inactive) Anemia (Inactive) Breast cancer, right (Chronic) 2012--SX & RADIATION, NO CHEMO C. difficile diarrhea (Inactive) Carotid artery disease 50% stenosis left ICA per duplex 01/02/20 Colitis (Inactive) Crohns disease (Chronic) Depression (Inactive) Diabetes mellitus type 2, controlled (Inactive) Diverticulitis large intestine (Inactive) DVT (deep venous thrombosis) (Inactive) BILT LEGS 03/2018 GERD (gastroesophageal reflux disease) (Chronic) GI bleed (Inactive) History of pulmonary embolus (PE) (Chronic) "dx in 2001, unprovoked" History of recent steroid use (Inactive) HLD (hyperlipidemia) (Chronic) HTN (hypertension) (Chronic) Hypertension (Inactive) Hypoglycemia associated with diabetes (Inactive) Hypokalemia (Inactive) Hypomagnesemia (Inactive) Hypothyroidism (Chronic) 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) "Abnormal right breast mammogram Biopsy-positive for DCIS Status post lumpectomy with no residual tumor stage pTis NXMX Estrogen receptor positive, progesterone receptor positive Status post completion of radiation therapy 02/22/2013 received 3850 cGy utilizing accelerated partial breast treatment " Leukocytosis (leucocytosis) (Inactive) Obesity (BMI 30-39.9) (Chronic) Pancolitis (Acute) Severe sepsis (Inactive) SIRS (systemic inflammatory response syndrome) (Inactive) UTI (urinary tract infection) (Inactive) Surgical History H/O breast biopsy (Resolved) 2012--RIGHT MALIGNANT H/O lumpectomy History of appendectomy (Resolved) History of colonoscopy (Resolved) History of lumpectomy of right breast (Resolved) "+ HERBIE ER/AR + in 10/2012 s/p RT" History of tonsillectomy and adenoidectomy (Resolved) Hx of appendectomy S/P insertion of IVC (inferior vena caval) filter (Resolved) 03/29/[address] BUSTAMANTE Status post glaucoma surgery (Resolved) BILT Family History Mother Family history of diabetes mellitus Heart disease Father Family history of diabetes mellitus Heart disease Sister Family history of diabetes mellitus Grandmother Family history of diabetes mellitus PATERNAL Uterine cancer Sister Crohn's disease Social History Smoking Status: Never smoker Second Hand Exposure: No; Do You Dip or Chew Tobacco: No; Hx Alcohol Use: No Hx Substance Use: No Preferred Language: Swiss Communication Ability: Effective Visual Impairment: No Limitations Hearing Ability: Normal Haul Driver Required: No Beliefs That Will Affect Care: None marital status: Single Current Living Situation: Alone Current Living Situation Comment: alone How many Children do You have: 0 Other Information That Helps Us Care for You: No Feels Safe at Home: Yes Safety Concerns: Feels Safe At This Time Review of Systems See HPI for pertinent positives & negatives. and A total of 10 systems reviewed and were otherwise negative Physical Exam Vital Signs Vital Signs - 24 hr 02/15/20 04:00 02/15/20 05:07 Temperature 36.6 C Temperature Source Oral Pulse Rate 103 H Pulse Rate [Right Finger] 114 H Pulse Rhythm [Right Finger] Regular Pulse Strength [Right Finger] Normal Respiratory Rate 18 18 Respiratory Depth Normal Normal Blood Pressure 130/75 Blood Pressure [Right Arm] 91/60 L Blood Pressure Mean 93 Blood Pressure Mean [Right Arm] 70 Blood Pressure Position Lying Blood Pressure Position [Right Arm] Lying Pulse Oximetry 98 98 Oxygen Delivery Method Room Air Room Air Sepsis New/Unexplained Change in Mental Status No Sepsis Action Taken by Nursing No Action Required GENERAL: alert, ill appearing, well nourished, mild distress, non-toxic, pale in appearance EYE EXAM: normal conjunctiva, PERRL and EOM's grossly intact OROPHARYNX: no exudate, no erythema, lips, buccal mucosa, and tongue normal and mucous membranes are moist NECK: supple, no nuchal rigidity, no adenopathy, non-tender LUNGS: Clear to auscultation. Normal chest wall mechanics, no w/r/r HEART: no murmurs, S1 normal and S2 normal ABDOMEN: abdomen soft, mild tenderness with palpation of the lower abdomen, normo-active bowel sounds, no masses, no rebound or guarding. BACK: Back is symmetrical on inspection and there is no deformity, no midline tenderness, no CVA tenderness. SKIN: no rashes and no bruising UPPER EXTREMITIES: upper extremities are grossly normal. FROM, nml pulses b/l. LOWER EXTREMITIES: No pitting edema. FROM, nml pulses b/l. Dried blood noted on the bottom of the patient's feet. NEURO EXAM: Normal sensorium, cranial nerves II-XII grossly intact, normal speech, no gross weakness of arms, no gross weakness of legs. Gross sensation intact. Course Course 0500: Pt updated on Hgb. She has had 3 episodes of bloody diarrhea here. Pt now with borderline low BP and tachycardic. 0518: Case discussed with Dr. Castillo. 0530: Patient updated again at bedside. Patient with recurrent active GI bleed and increased orthostatic symptoms. Patient then had a lower blood pressure again. Patient was made supine and IV fluids were opened up to a bolus. Blood pressure improved and patient began to feel slightly better. Possible component of vagal reaction. Blood consent form signed. 0628: Pt with recurrent diarrhea and now with vomiting also, emesis without blo od. Pt hypotensive again. Pt's color is improved though. Blood transfusing. Vit K transfusing. IV team unable to establish a 2nd line. Will place US guided peripheral here and bolus. Staff states the hospitalist did come to the ER and evaluated the patient. 0718: I went to recheck patient after my colleague, Naomie Leonard PA-C placed another peripheral IV which was working well and found pt had been taken upstairs. When I inquired of staff about her VS, I was informed she was still hypotensive but the bed was ready so she was transported upstairs. I am concerned about her due to ongoing blood loss from GI bleed, however I couldn't contact the catalyst operator gasoline as it was now after change of shift. It appears from orders that the patient went to a tele bed on the floor. Administered Medications Amoxicillin/Clavulanate Potassium (Augmentin 875mg) 1 tab PO BID RACHEL Stop: 02/19/20 23:59 Last Admin: 02/15/20 21:30 Dose: 1 tab Documented by: [id number] Admin: 02/15/20 09:36 Dose: 1 tab Documented by: [id number] Anastrozole (Arimidex) 1 mg PO QAM RACHEL Stop: 03/16/20 08:59 Last Admin: 02/15/20 09:47 Dose: 1 mg Documented by: [id number] Cosigned by: [id number] Atorvastatin Calcium (Lipitor) 40 mg PO HS RACHEL Stop: 03/16/20 20:59 Last Admin: 02/15/20 21:30 Dose: 40 mg Documented by: [id number] Colestipol HCl (Colestid) 1 gm PO TID@1000,1500,2200 RACHEL Stop: 03/16/20 09:59 Last Admin: 02/15/20 22:19 Dose: 1 gm Documented by: [id number] Admin: 02/15/20 16:43 Dose: 1 gm Documented by: [id number] Admin: 02/15/20 09:48 Dose: 1 gm Documented by: [id number] Sodium Chloride (Nss 1000ml) 1,000 mls @ 125 mls/hr IV .Q8H RACHEL Stop: 03/16/20 04:29 Last Admin: 02/15/20 21:29 Dose: 125 mls/hr Documented by: [id number] Infusion: 02/15/20 19:34 Dose: 125 mls/hr Documented by: [id number] Admin: 02/15/20 11:34 Dose: 125 mls/hr Documented by: [id number] Infusion: 02/15/20 11:34 Dose: 125 mls/hr Documented by: [id number] Admin: 02/15/20 05:05 Dose: 125 mls/hr Documented by: [id number] Pantoprazole Sodium 40 mg/ (Syringe) 10 mls @ 5 mls/min IV BID RACHEL Stop: 03/16/20 08:59 Last Admin: 02/15/20 21:30 Dose: 5 mls/min Documented by: [id number] Admin: 02/15/20 09:46 Dose: 5 mls/min Documented by: [id number] Levothyroxine Sodium 37.5 mcg/ (Syringe) 1.875 mls @ 2 mls/min IV DAILY@0900 RACHEL Stop: 03/16/20 08:59 Last Admin: 02/15/20 09:49 Dose: 2 mls/min Documented by: [id number] Methylprednisolone 20 mg/ (Syringe) 0.32 mls @ 1.5 mls/min IV TID RACHEL Stop: 03/16/20 08:59 Last Admin: 02/15/20 21:30 Dose: 1.5 mls/min Documented by: [id number] Admin: 02/15/20 14:27 Dose: 1.5 mls/min Documented by: [id number] Admin: 02/15/20 09:46 Dose: 1.5 mls/min Documented by: [id number] Insulin Aspart (Novolog Flexpen) 0 units SC ACHS [facility] Stop: 03/16/20 08:59 Last Admin: 02/15/20 21:32 Dose: Not Given Documented by: [id number] Admin: 02/15/20 17:17 Dose: 3 units Documented by: [id number] Cosigned by: [id number] Admin: 02/15/20 12:17 Dose: 5 units Documented by: [id number] Cosigned by: [id number] Admin: 02/15/20 09:34 Dose: 10 units Documented by: [id number] Cosigned by: [id number] Insulin Aspart (Novolog Flexpen) 0 units SC 0000,0400 [facility] Stop: 02/16/20 04:01 Last Admin: 02/15/20 23:37 Dose: Not Given Documented by: [id number] Cosigned by: [id number] Insulin Glargine (Lantus Solostar Pen) 11 units SC DAILY [facility] Stop: 03/16/20 08:59 Last Admin: 02/15/20 09:47 Dose: 11 units Documented by: [id number] Cosigned by: [id number] Lactobacillus Acidophilus (Floranex) 4 tab PO QID [facility] Stop: 03/16/20 08:59 Last Admin: 02/15/20 21:30 Dose: 4 tab Documented by: [id number] Admin: 02/15/20 16:44 Dose: Not Given Documented by: [id number] Admin: 02/15/20 14:27 Dose: 4 tab Documented by: [id number] Admin: 02/15/20 09:36 Dose: 4 tab Documented by: [id number] Ondansetron HCl (Zofran) 4 mg IV Q6H PRN PRN Reason: Nausea Stop: 03/16/20 07:17 Last Admin: 02/15/20 07:32 Dose: 4 mg Documented by: [id number] Polysaccharide Iron Complex (Niferex-150 W/Vit C Cap) 150 mg PO BID [facility] Stop: 03/16/20 08:59 Last Admin: 02/15/20 21:29 Dose: 150 mg Documented by: [id number] Admin: 02/15/20 09:47 Dose: 150 mg Documented by: [id number] Potassium Chloride (Klor-Con M20) 20 meq PO BID [facility] Stop: 03/16/20 08:59 Last Admin: 02/15/20 21:29 Dose: 20 meq Documented by: [id number] Admin: 02/15/20 09:48 Dose: 20 meq Documented by: [id number] Sertraline HCl (Zoloft) 50 mg PO QAM RACHEL Stop: 03/16/20 08:59 Last Admin: 02/15/20 09:48 Dose: 50 mg Documented by: [id number] Discontinued Medications Diphenhydramine HCl (Benadryl) 25 mg IV NOW STA Stop: 02/15/20 05:08 Last Admin: 02/15/20 06:07 Dose: 25 mg Documented by: [id number] Famotidine (Pepcid 20mg Iv Push) 20 mg IV ONE STA Stop: 02/15/20 05:30 Last Admin: 02/15/20 05:35 Dose: 20 mg Documented by: [id number] Acetaminophen (Ofirmev) 1,000 mg in 100 mls @ 400 mls/hr IV NOW STA Stop: 02/15/20 05:24 Last Infusion: 02/15/20 07:15 Dose: 0 mls/hr Documented by: [id number] Admin: 02/15/20 06:07 Dose: 400 mls/hr Documented by: [id number] Phytonadione 2.5 mg/ Sodium (Chloride) 50.25 mls @ 100.5 mls/hr IV ONE ONE Stop: 02/15/20 05:42 Last Infusion: 02/15/20 06:15 Dose: 0 mls/hr Documented by: [id number] Admin: 02/15/20 05:32 Dose: 100.5 mls/hr Documented by: [id number] Phytonadione 2.5 mg/ Sodium (Chloride) 50.25 mls @ 100.5 mls/hr IV ONE ONE Stop: 02/15/20 06:36 Last Infusion: 02/15/20 09:10 Dose: 0 mls/hr Documented by: [id number] Admin: 02/15/20 08:38 Dose: 100.5 mls/hr Documented by: [id number] Sodium Chloride (Nss) 500 mls @ 500 mls/hr IV .Q1H RACHEL Stop: 02/15/20 07:44 Last Admin: 02/15/20 09:34 Dose: Not Given Documented by: [id number] Sodium Chloride (Nss 1000ml) 1,000 mls @ 999 mls/hr IV .Q1H1M RACHEL Stop: 02/15/20 09:38 Last Infusion: 02/15/20 11:15 Dose: 0 mls/hr Documented by: [id number] Admin: 02/15/20 10:13 Dose: 999 mls/hr Documented by: [id number] Infusion: 02/15/20 09:01 Dose: 999 mls/hr Documented by: [id number] Admin: 02/15/20 08:00 Dose: 999 mls/hr Documented by: [id number] Insulin Glargine (Lantus Solostar Pen) 4 units SQ NOW STA Stop: 02/15/20 11:56 Last Admin: 02/15/20 12:17 Dose: 4 units Documented by: [id number] Cosigned by: [id number] Insulin Human Regular (Novolin R U-100 Per Unit) 8 units SC NOW STA Stop: 02/15/20 05:30 Last Admin: 02/15/20 05:36 Dose: 8 units Documented by: [id number] Cosigned by: [id number] Critical Care Time Critical Care Time: Yes Total Critical Care Time: 51 Critical care of 51 min performed to assess and manage high likelihood of life- threatening gi bleed, involving labs and imaging, review of EMR, performed with assessment to evaluate gi bleed diagnosis with frequent reassessment. This time includes bedside time, treatment discussions with patient/family/consultants, documentation time and excludes procedure time. Medical Decision Making Differential Diagnosis Differential diagnosis includes etiologies such as diverticulosis, AVM, coagulop athy, colitis, inflammatory bowel disease, malignancy, Lisette-Mccartney tear, esophagitis, peptic ulcer disease, variceal bleed, gastritis, epistaxis, fissure, hemorrhoids, as well as others were entertained. Medical Records Attestation: I reviewed the patient's medical records. Home Medications Current Medication List: was personally reviewed by me Laboratory Data Attestation: I reviewed the patient's lab results. Result diagrams: 02/15/20 22:56 02/15/20 04:43 Lab Results 02/15/20 02/15/20 02/15/20 Range/Units 04:43 04:43 04:43 WBC 9.86 (4.8-10.8) K/uL RBC 2.83 L (4.2-5.4) M/uL Hgb 6.9 L* (12.0-16.0) g/dL Hct 23.0 L (37-47) % MCV 81.3 (80-100) fL MCH 24.4 L (25-34) pg MCHC 30.0 L (32-36) g/dL RDW Std Deviation 72.7 H (36.4-46.3) fL RDW Coeff of Conchis 25.3 H (11.5-14.5) % Plt Count 545 H (130-400) K/uL MPV 8.5 (7.4-10.4) fL Absolute Nucleated RBC 0.02 H (0-0) K/uL Nucleated RBC % (auto) 0.2 % Neutrophils % (Manual) 89.5 % Lymphocytes % (Manual) 6.1 % Monocytes % (Manual) 3.5 % Myelocytes % (Man) 0.9 % Neutrophils # (Manual) 8.82 H (1.4-6.5) K/uL Total Absolute Neuts 8.82 H (1.4-6.5) K/uL Lymphocytes # (Manual) 0.60 L (1.2-3.4) K/uL Total Abs Lymphocytes 0.60 L (1.2-3.4) K/uL Monocytes # (Manual) 0.35 (0.11-0.59) K/uL Myelocytes # (Manual) 0.09 H (0-0) K/uL Polychromasia 1+ Hypochromasia Present Ovalocytes 1+ PT 48.5 H (9.0-12.0) Seconds INR 5.0 H (0.9-1.1) Sodium 137 (136-145) mmol/L Potassium 4.5 (3.5-5.1) mmol/L Chloride 102 (98-107) mmol/L Carbon Dioxide 24 (21-32) mmol/L Anion Gap 11.0 (3-11) BUN 19 H (7-18) mg/dl Creatinine 1.42 H (0.6-1.2) mg/dl Est Cr Clr Drug Dosing 32.7 ml/min Est GFR ( Amer) 44.8 Est GFR (Non-Af Amer) 38.7 BUN/Creatinine Ratio 13.6 (10-20) Glucose 532 H* (70-99) mg/dl Calcium 8.6 (8.5-10.1) mg/dl Magnesium 2.2 (1.8-2.4) mg/dl Total Bilirubin 0.2 (0.2-1) mg/dl AST 7 L (15-37) U/L ALT 10 L (12-78) U/L Alkaline Phosphatase 107 (45-117) U/L Troponin I < 0.015 (0-0.045) ng/ml Total Protein 5.8 L (6.4-8.2) gm/dl Albumin 2.1 L (3.4-5.0) gm/dl Globulin 3.7 (2.5-4.0) gm/dl Albumin/Globulin Ratio 0.6 L (0.9-2) Lipase 398 H (73-393) U/L Beta-Hydroxybutyric Acd 1.30 (0.2-2.81) mg/dl Blood Type Antibody Screen Crossmatch 02/15/20 Range/Units 04:43 WBC (4.8-10.8) K/uL RBC (4.2-5.4) M/uL Hgb (12.0-16.0) g/dL Hct (37-47) % MCV (80-100) fL MCH (25-34) pg MCHC (32-36) g/dL RDW Std Deviation (36.4-46.3) fL RDW Coeff of Conchis (11.5-14.5) % Plt Count (130-400) K/uL MPV (7.4-10.4) fL Absolute Nucleated RBC (0-0) K/uL Nucleated RBC % (auto) % Neutrophils % (Manual) % Lymphocytes % (Manual) % Monocytes % (Manual) % Myelocytes % (Man) % Neutrophils # (Manual) (1.4-6.5) K/uL Total Absolute Neuts (1.4-6.5) K/uL Lymphocytes # (Manual) (1.2-3.4) K/uL Total Abs Lymphocytes (1.2-3.4) K/uL Monocytes # (Manual) (0.11-0.59) K/uL Myelocytes # (Manual) (0-0) K/uL Polychromasia Hypochromasia Ovalocytes PT (9.0-12.0) Seconds INR (0.9-1.1) Sodium (136-145) mmol/L Potassium (3.5-5.1) mmol/L Chloride (98-107) mmol/L Carbon Dioxide (21-32) mmol/L Anion Gap (3-11) BUN (7-18) mg/dl Creatinine (0.6-1.2) mg/dl Est Cr Clr Drug Dosing ml/min Est GFR ( Amer) Est GFR (Non-Af Amer) BUN/Creatinine Ratio (10-20) Glucose (70-99) mg/dl Calcium (8.5-10.1) mg/dl Magnesium (1.8-2.4) mg/dl Total Bilirubin (0.2-1) mg/dl AST (15-37) U/L ALT (12-78) U/L Alkaline Phosphatase (45-117) U/L Troponin I (0-0.045) ng/ml Total Protein (6.4-8.2) gm/dl Albumin (3.4-5.0) gm/dl Globulin (2.5-4.0) gm/dl Albumin/Globulin Ratio (0.9-2) Lipase (73-393) U/L Beta-Hydroxybutyric Acd (0.2-2.81) mg/dl Blood Type AB Negative Antibody Screen NEGATIVE Crossmatch See Detail ECG Data Attestation: I personally reviewed and interpreted this ECG as follows: Indication: + abdominal pain Rate (beats per minute): 113 Rhythm: + sinus tachycardia ECG Intervals/blocks: + Normal QRS and + Normal QT ECG [place]: + Normal ECG ST segments: + Normal ST segments Blood Pressure Blood Pressure Findings: Low blood pressure MDM Narrative This is a 64-year-old female with a past history of inflammatory bowel disease and recent admission including colonoscopy who presents with recurrent GI bleed. Patient has had prior episodes of bleeding that has required transfusion. Patient pale appearing here, mildly tachycardic, and borderline initial blood pressure. Patient had labs drawn and sent initially and was started on IV fluids as a precaution. Patient then had 3 subsequent episodes of bright red blood per rectum. Hemoglobin returned at 6.9. I updated the patient at bedside and obtained a blood consent form. While filling this out patient then had what I believe is possibly a vagal reaction while having another bowel movement her blood pressure dropped, she felt more dizzy and became diaphoretic, and heart rate was more tachycardic. Patient was laid supine given an IV fluid bolus, and vital signs improved. Patient reported feeling improved with additional volume as well. Patient signed blood consent form. Shortly after this patient's INR resulted supratherapeutic at 5. IV vitamin K was ordered in addition. At this point in time while continuing to order additional treatment and closely monitor and recheck the patient, I discussed the case with the hospitalist who had also seen the patient during her prior admission. Patient was additionally noted to be hyperglycemic and insulin was also ordered. No evidence of DKA. Given patient was going to require additional IV lines for multiple infusions, I asked nursing staff to find a second IV site. They were unsuccessful and contacted the IV team. While I was in with another critical patient the IV team had come down and attempted to find a second site but was unsuccessful and the nighttime IV team staff member is not qualified to perform peripheral ultrasound-guided IVs. Patient then had another episode of bright red blood per rectum, became hypotensive and tachycardic again as well as more symptomatic. I asked my colleague Naomie Leonard PA-C to look for another peripheral line with ultrasound guided placement and the patient. She was successful in obtaining this on additional IV fluids were placed. I asked the nursing staff to give her an additional fluid bolus again. Blood was up and running at this time also. Patient was kept aware and up-to-date on results. I did review the patient's recent admission including her colonoscopy. Patient was discharged on Augmentin and prednisone, which likely contributed to her supratherapeutic INR. Patient has been coumadinized for many years and has an IVC filter due to recurrent PE and DVTs. Patient's hemodynamics would correct with additional volume. It was my suspicion that her recurrent bleeding was likely from the supratherapeutic INR in the setting of a recent flare of her inflammatory bowel disease. Patient with minimal lower abdominal cramping and would have a sharp cramp just prior to another bowel movement. Patient had no abdominal pain in between these episodes. Likely this is related to spasm. While I was on the phone discussing another critical patient in the emergency room, nursing staff transferred the patient upstairs as her bed was available and ready. I was unable to recheck the patient again following this fluid bolus to assure that her hemodynamics had again improved and she was feeling better. Patient was rechecked multiple times and kept aware of results and plan. An order was placed for continuous cardiac monitoring. The monitor shows a rate of 104_ with _sinus tachycardia rhythm. Impression & Plan Acute GI bleeding, Crohns disease, Anemia, Supratherapeutic INR Discharge Plan Visit Data *Final* Discharge Date/Time: 02/15/20 06:43 Chief Complaint: GI Bleed Stated Complaint: GI BLEED/ABDOMINAL CRAMPING Other Complaint: Abdominal Pain ED Provider: Emely Dejesus Discharge Problem: Acute GI bleeding, Crohns disease, Anemia, Supratherapeutic INR Patient Disposition: Admitted As Inpatient Discharge Instructions Interventions: ED Discharge Assessment Last Done: 02/15/20 06:43 Discharge Problem: Crohns disease Qualifiers: Gastrointestinal tract location: unspecified location Digestive disease complication type: unspecified complication Qualified Code(s): K50.919 - Crohn's disease, unspecified, with unspecified complications Anemia Qualifiers: Anemia type: other cause Other causes of anemia: acute posthemorrhagic Qualified Code(s): D62 - Acute posthemorrhagic anemia
[2020-02-15 04:59] LABS: Hemoglobin 6.9 g/dL (12.0-16.0); Mean Corpuscular Hemoglobin 24.4 pg (25-34); Mean Corpuscular Volume 81.3 fL (80-100); Mean Platelet Volume 8.5 fL (7.4-10.4); Nucleated RBC # (auto) 0.02 K/uL (0-0); Nucleated RBC % (auto) 0.2 %; Platelet Count 545 K/uL (130-400); RDW Coefficient of Variation 25.3 % (11.5-14.5); RDW Standard Deviation 72.7 fL (36.4-46.3); Red Blood Count 2.83 M/uL (4.2-5.4); White Blood Count 9.86 K/uL (4.8-10.8)
[2020-02-15] MEDS ORDERED: SODIUM CHLORIDE 0.9% 250 ML IV PRN ×2 (05:01→07:18)
[2020-02-15] MEDS: SODIUM CHLORIDE 0.9% 1000ML 1,000 ML IV SCH ×5 (05:05→21:29)
[2020-02-15] MEDS ORDERED: DiphenhydrAMINE HCL 50 MG/ML VIAL IV STA (05:07)
[2020-02-15 05:10] LABS: Prothrombin Time 48.5 Seconds (9.0-12.0)
[2020-02-15] MEDS ORDERED: ACETAMINOPHEN 1,000 MG/100 ML VIAL IV STA (05:10)
[2020-02-15 05:11] LABS: ANC (manual) 8.82 K/uL (1.4-6.5); Hypochromasia Present; Lymphocytes % (manual) 6.1 %; Monocytes # (manual) 0.35 K/uL (0.11-0.59); Monocytes % (manual) 3.5 %; Myelocytes # (manual) 0.09 K/uL (0-0); Myelocytes % (manual) 0.9 %; Neutrophils # (manual) 8.82 K/uL (1.4-6.5); Neutrophils % (manual) 89.5 %; Ovalocytes 1+; Polychromasia 1+
[2020-02-15] MEDS ORDERED: PHYTONADIONE 2.5 MG in SODIUM CHLORIDE 0.9% 50 ML IV ONE ×2 (05:13→06:07)
[2020-02-15 05:25] LABS: Alanine Aminotransferase 10 U/L (12-78); Albumin Globulin Ratio 0.6 (0.9-2); Albumin Level 2.1 gm/dl (3.4-5.0); Alkaline Phosphatase 107 U/L (45-117); Aspartate Aminotransferase 7 U/L (15-37); BUN Creatinine Ratio 13.6 (10-20); Bilirubin,Total 0.2 mg/dl (0.2-1); Blood Urea Nitrogen 19 mg/dl (7-18); Calcium 8.6 mg/dl (8.5-10.1); Carbon Dioxide 24 mmol/L (21-32); Chloride 102 mmol/L (98-107); Creatinine Clr Calc Pharmacy 32.7 ml/min; Est GFR (African American) 44.8; Est GFR (Non-African American) 38.7; Globulin 3.7 gm/dl (2.5-4.0); Glucose 532 mg/dl (70-99); Lipase 398 U/L (73-393); Magnesium 2.2 mg/dl (1.8-2.4); Potassium 4.5 mmol/L (3.5-5.1); Sodium 137 mmol/L (136-145); Total Protein 5.8 gm/dl (6.4-8.2); Troponin I < 0.015 ng/ml (0-0.045)
[2020-02-15] MEDS ORDERED: NovoLIN-R INSULIN PER UNIT CHARGE SC STA (05:29)
[2020-02-15] MEDS ORDERED: FAMOTIDINE 20MG/5ML IV PUSH IV STA (05:29)
[2020-02-15] MEDS ORDERED: SODIUM CHLORIDE 0.9% 500 ML IV SCH (06:45)
[2020-02-15] MEDS ORDERED: NovoLIN-R INSULIN PER UNIT CHARGE IV STA (07:18)
[2020-02-15] MEDS ORDERED: FLUOCINONIDE 0.05% OINT 15 GM TUBE EXT PRN (07:18)
[2020-02-15] MEDS ORDERED: TRIAMCINOLONE ACET 0.1% CR 15 GM TUBE TOP PRN (07:18)
[2020-02-15] MEDS ORDERED: DiphenhydrAMINE HCL 50 MG/ML VIAL IV PRN (07:18)
[2020-02-15] MEDS ORDERED: NITROGLYCERIN SL 0.4 MG/TAB TAB SL PRN (07:18)
[2020-02-15] MEDS ORDERED: ACETAMINOPHEN 1,000 MG/100 ML VIAL IV PRN (07:18)
[2020-02-15] MEDS ORDERED: ONDANSETRON INJ 2 MG/ML 2 ML VIAL IV PRN (07:18)
[2020-02-15] MEDS ORDERED: ACETAMINOPHEN 325 MG TAB PO PRN (07:18)
[2020-02-15] MEDS ORDERED: TRAZODONE HCL 50 MG TAB PO PRN (07:18)
--- NOTE | 2020-02-15 07:29 | XRay Report ---
AP CHEST WITH ABDOMINAL SERIES CLINICAL HISTORY: GI bleeding. FINDINGS: An AP upright chest radiograph is compared to study dated 01/04/2020 and correlated with chest CT date d 01/31/2020. The cardiomediastinal silhouette is unremarkable. The lungs and pleural spaces are clear . No pneumothorax is seen. The bony thorax is grossly intact. Supine and erect abdominal radiographs are correlated with abdominal CT dated 01/31/2020. There is a n onobstructed abdominal bowel gas pattern. No evidence of intraperitoneal free air is seen. A large ca lcified gallstone is seen in the right upper quadrant. An IVC filter is in place. Phleboliths are obs erved in the pelvis. The lumbosacral spine and bony pelvis appear intact. IMPRESSION: 1. No active disease in the chest. 2. Nonobstructed abdominal bowel gas pattern. 3. Cholelithiasis. ACT 112: Negative or not required by law. Electronically signed by: John Bojorquez M.D. 02/15/2020 7:28 AM
--- NOTE | 2020-02-15 07:54 | History and Physical Report ---
DATE OF ADMISSION: 02/15/2020 CHIEF COMPLAINT: Bright red blood per rectum. HISTORY OF PRESENT ILLNESS: This is a 64-year-old female with past medical history significant for Crohn's colitis , history of diabetes, hypothyroidism, hyperlipidemia, history of DVT and pulmonary embolism, on Coumadin, status post IVC filter, history of pancolitis, history of recurrent C. diff, and history of chronic kidney disease stage III. The patient lives alone, walks independently. The patient comes with bright red blood per rectum since 2:30 a.m. This is third admission since December with similar problem. The patient was here, last admission from 01/31/2020 and was discharged to 02/06/2020. At that time also came with abdominal pain, diarrhea, and blood in the stools. She had a colonoscopy which showed diffuse Crohn's colitis with ulcerative mucosa and she received 2 units of PRBC and she was discharged on 60 mg of prednisone daily and she followed up with GI yesterday. Currently, she is also on p.o. budesonide 9 mg and there is a plan to start on Stelara on 02/19/2020. Currently, she is on prednisone taper 50 mg daily. The patient says she was doing fine until last night when around 2:30 a.m. she woke up with many episodes of bloody bowel movements with a lot of clots and she felt dizzy, lightheaded. This was when she came to the ER. Hemoglobin has gone down to 6.9. and ER ordered to give 2 units of PRBC. Currently complains of abdominal discomfort, 3/10 in severity. Denies any other complaints. Denies any headache. No blurred visions, no earache, no runny nose, no sore throat. No loss of sense of smell or taste. No dysphagia. Appetite is not that great. No chest pain. She always has some shortness of breath on exertion .She was found to have pneumonia last admission and is taking Augmentin for that. No cough, no nausea. Normal bladder movements. No rash. ALLERGIES: AZACTAM, DORZOLAMIDE, LATANOPROST, PENICILLINS, THIMEROSAL, TIMOLOL. PAST MEDICAL HISTORY: As mentioned above. 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 MEDICATIONS: Currently the patient is on Augmentin 1 tablet p.o. b.i.d., anastrozole 1 mg p.o. a.m., atorvastatin 40 mg p.o. at bedtime, budesonide 9 mg p.o. daily, calcium citrate 1 tablet p.o. a.m., vitamin D 1000 units p.o. daily, colestipol 1 g p.o. t.i.d., fluocinonide b.i.d. p.r.n., Lasix 20 mg p.o. a.m., Lantus 20 units subcutaneous a.m., levothyroxine 75 mcg p.o. daily, Protonix 40 mg p.o. daily, Ferrex 150 mg p.o. b.i.d., potassium chloride 20 mEq p.o. b.i.d., prednisone currently 50 mg daily, probiotic 1 tablet p.o. t.i.d., Zoloft 50 mg p.o. a.m., trazodone 50 mg p.o. at bedtime p.r.n., triamcinolone topical application b.i.d. p.r.n., Coumadin as directed. FAMILY HISTORY: Significant for mother had asthma, skin cancer, diabetes, hypertension and of SD at age of 82; father had diabetes; aunt had pancreatic cancer; maternal grandmother had skin cancer, uterine cancer; sister has diabetes. SOCIAL HISTORY: No smoking, no alcohol, no drug use. REVIEW OF SYSTEMS: As per HPI. Rest of the review of systems negative. PHYSICAL EXAMINATION: GENERAL: The patient is of moderate build, not in acute distress. VITAL SIGNS: Temperature 36.6, pulse 114, blood pressure 91/60, respiratory rate 18, oxygen 98% on room air. HEENT: No pallor, no icterus. Pupils equal, round, and reactive to light. NECK: No JVD, no neck masses, no carotid bruits. CARDIOVASCULAR: S1, S2 heard. Tachycardia. No murmurs. RESPIRATORY SYSTEM: Normal AP diameter. No accessory muscle use. No wheezing, no crackles. ABDOMEN: Soft, bowel sounds present. Mild abdominal discomfort. No guarding, no rigidity, no distention. CENTRAL NERVOUS SYSTEM: Cranial nerves II-XII grossly normal. Nonfocal. EXTREMITIES: No edema, no erythema seen. LABORATORY DATA: WBC 9.8, hemoglobin 6.9, hematocrit 23, platelets 545. PT 48.5, INR 4.5. Sodium 137, potassium 4.5, chloride 102, bicarbonate 24, BUN 19, creatinine 1.42, serum glucose 532, calcium 8.6, magnesium 2.2, total bilirubin 0.2, AST 7, ALT 10, alkaline phosphatase 107. Troponin I less than 0.015. Lipase 398. Beta hydroxybutyric acid 1.3. ASSESSMENT AND PLAN: This is a 64-year-old female with Crohn's disease comes with Blood per rectum.. 1. GI bleed.Comes with again bright red bleeding per rectum, mostly Crohn's flare with elevated INR. INR was 4. 5. Received 2.5 IV vitamin K in the ER, will give another 2.5 IV vitamin K. Follow the hemodynamics. Continue IV fluids. Monitor in the tele floor. 2. Acute blood loss anemia from above. Hemoglobin 6.9, getting 2 units of PRBC. We will follow the H and H q. 6 hours. 3. Crohn's flare. We will hold her home prednisone and budesonide and will place on IV Solu-Medrol 20 mg t.i.d. Last admission last week of January, Colonoscopy was done which showed diffuse colitis with ulcerative mucosa. Consulting GI for further recommendations. 4. Lung nodules and pneumonia. Last admit CAT scan showed several noncalcified subpleural pulmonary nodules or masses on the right side with the largest measuring 5 cm. Seen by pulmonary and recommended possible infectious origin and treated with Augmentin for 2 weeks. To repeat CAT scan in 3 weeks and follow up with pulmonary. If persistent lung nodule noted, plan for biopsy.Continue Augmentin. 5. History of DVT and PE, status post IVC filter. Coumadin held again for GI bleed.May need to hold for long time? 6. Hyperlipidemia, statin. 7. Hypothyroidism, on Synthroid. 8. Depression, on Zoloft. 9. History of recurrent C. diff colitis. 10. Acute kidney injury on chronic kidney disease stage III. Baseline creatinine around 1, presents with creatinine of 1.4. Getting fluids. We will follow the labs, avoid nephrotoxic agents. 11. History of diabetes, insulin requiring. Will cut back Lantus to 11 units daily as the patient is currently n.p.o. Insulin sliding scale. She was not in DKA, but sugars are high at 500 in Er, and as patient is getting steroids, Will closely follow. 12. Deep venous thrombosis prophylaxis, sequential compression devices for now. 13. Disposition: Closely monitor in the tele floor. Level 1 full code. MTDD
--- NOTE | 2020-02-15 08:18 | Hospitalist Progress Note ---
Date of Service February 15, 2020 Assessment & Plan (1) Acute GI bleeding: (2) Supratherapeutic INR: (3) Crohns disease: (4) Acute on chronic blood loss anemia: Acute GI bleed from crohn's flare in a patient with supratherapeutic INR Currently in hemorrhagic shock Yet to be fully resuscitated with IVF/blood Currently on first PRBC Has a single peripheral line Give IVF 2L bolus stat INR is 5 Got 2.5mg vit k iv in ER Give second 2.5mg ordered on admission Multiple attempts to get another IV access including USS guided were futile Consent obtained for central line Discussed case with Dr Proctor, Community Marketing Manager. Stat consult placed for evaluation and central line placement. Monitor vitals Continue transfusion of PRBC units already ordered Continue iv methylpred (5) Acute renal failure superimposed on stage 3 chronic kidney disease: Secondary to GI bleed with hemorrhagic shock Cr is 1.42 ( from 0.79 from 02/04/20) Continue resuscitation Monitor Cr (6) History of pulmonary embolus (PE): (7) 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: Patient on coumadin Currently on hold due to GI bleed and supratherapeutic INR Currently being resuscitated (8) Pneumonia: Recent admission for GI bleed, discharged on 02/06/[address] showed multifocal consolidation thought to be likely multifocal pneumonitis vs pneumonia Was discharged on augmentin for 2 weeks and to repeat CT chest in 3 weeks with follow up with Pulm (Dr Haley) Currently stable from resp standpoint Continue augmentin for now (9) Hypothyroidism: Continue synthroid (10) Diabetes: A1c was 8.9 Currently hyperglycemic On iv steroid Optimize glycemic control Admission and Anticipated Discharge Date Admission Date: February 15, 2020 Subjective Came to review patient who was just brought up from ER Patient reporting dizziness, nausea, had a nonbloody emesis Has not had any more bloody movement. Last was in ER Reports abd discomfort. Denied any palpitation, chest pain, shortness of breath or cough Physical Exam Constitutional: + ill appearing; no acute distress Eyes: PERRL, normal accommodation and EOM intact bilaterally pale conjunctiva ENMT: external ear and nose normal, oropharynx normal Respiratory: normal respiratory effort, lungs clear to auscultation Cardiovascular: Rate/Rhythm: + tachycardic Extremities: no pedal edema S1 S2, no pedal edema Gastrointestinal (Abdomen): normal bowel sounds, soft, nontender, no hepatosplenomegaly Musculoskeletal: no cyanosis or clubbing, extremities motor strength 5/5 Neurologic: PERRL, EOMI, accommodation nl, no face palsy, no dysarthria Psychiatric: A+Ox3, euthymic affect Results & Data Results & Data ([facility]) Vital Signs (Past 12 Hours) Vital Signs Temp Pulse Pulse Resp BP BP BP 02/15/20 08:05 99/65 L 02/15/20 07:45 72/47 L 02/15/20 07:37 63/46 L 02/15/20 07:25 82/47 L 02/15/20 07:20 55/42 L 02/15/20 06:51 36.5 C 110 H 20 78/49 L 02/15/20 06:43 112 H 20 88/50 L 02/15/20 06:36 36.4 C L 105 H 20 74/49 L 02/15/20 06:17 36.7 C 98 H 20 98/55 L 02/15/20 05:07 114 H 18 91/60 L 02/15/20 04:00 36.6 C 103 H 18 130/75 Pulse Ox 02/15/20 08:05 02/15/20 07:45 02/15/20 07:37 02/15/20 07:25 02/15/20 07:20 02/15/20 06:51 100 02/15/20 06:43 99 02/15/20 06:36 98 02/15/20 06:17 100 02/15/20 05:07 98 02/15/20 04:00 98 Laboratory Results Laboratory Results - last 24 hr 02/15/20 02/15/20 02/15/20 04:43 04:43 04:43 WBC 9.86 RBC 2.83 L Hgb 6.9 L* Hct 23.0 L MCV 81.3 MCH 24.4 L MCHC 30.0 L RDW Std Deviation 72.7 H RDW Coeff of Conchis 25.3 H Plt Count 545 H MPV 8.5 Absolute Nucleated RBC 0.02 H Nucleated RBC % (auto) 0.2 Neutrophils % (Manual) 89.5 Lymphocytes % (Manual) 6.1 Monocytes % (Manual) 3.5 Myelocytes % (Man) 0.9 Neutrophils # (Manual) 8.82 H Total Absolute Neuts 8.82 H Lymphocytes # (Manual) 0.60 L Total Abs Lymphocytes 0.60 L Monocytes # (Manual) 0.35 Myelocytes # (Manual) 0.09 H Polychromasia 1+ Hypochromasia Present Ovalocytes 1+ PT 48.5 H INR 5.0 H Sodium 137 Potassium 4.5 Chloride 102 Carbon Dioxide 24 Anion Gap 11.0 BUN 19 H Creatinine 1.42 H Est Cr Clr Drug Dosing 32.7 Est GFR ( Amer) 44.8 Est GFR (Non-Af Amer) 38.7 BUN/Creatinine Ratio 13.6 Glucose 532 H* POC Glucose Calcium 8.6 Magnesium 2.2 Total Bilirubin 0.2 AST 7 L ALT 10 L Alkaline Phosphatase 107 Troponin I < 0.015 Total Protein 5.8 L Albumin 2.1 L Globulin 3.7 Albumin/Globulin Ratio 0.6 L Lipase 398 H Beta-Hydroxybutyric Acd 1.30 Blood Type Antibody Screen Crossmatch 02/15/20 02/15/20 04:43 07:30 WBC RBC Hgb Hct MCV MCH MCHC RDW Std Deviation RDW Coeff of Conchis Plt Count MPV Absolute Nucleated RBC Nucleated RBC % (auto) Neutrophils % (Manual) Lymphocytes % (Manual) Monocytes % (Manual) Myelocytes % (Man) Neutrophils # (Manual) Total Absolute Neuts Lymphocytes # (Manual) Total Abs Lymphocytes Monocytes # (Manual) Myelocytes # (Manual) Polychromasia Hypochromasia Ovalocytes PT INR Sodium Potassium Chloride Carbon Dioxide Anion Gap BUN Creatinine Est Cr Clr Drug Dosing Est GFR ( Amer) Est GFR (Non-Af Amer) BUN/Creatinine Ratio Glucose POC Glucose 427 H* Calcium Magnesium Total Bilirubin AST ALT Alkaline Phosphatase Troponin I Total Protein Albumin Globulin Albumin/Globulin Ratio Lipase Beta-Hydroxybutyric Acd Blood Type AB Negative Antibody Screen NEGATIVE Crossmatch See Detail (1) Crohns disease Digestive disease complication type: unspecified complication Gastrointestinal tract location: unspecified location Qualified Code(s): K50.919 - Crohn's disease, unspecified, with unspecified complications (2) Hypothyroidism Hypothyroidism type: unspecified Qualified Code(s): E03.9 - Hypothyroidism, unspecified (3) Pneumonia Laterality: right Lung location: unspecified part of lung Pneumonia type: due to unspecified organism Qualified Code(s): J18.9 - Pneumonia, unspecified organism
[2020-02-15] MEDS ORDERED: AMOXICILLIN/CLAVULANATE 875MG HOME PACK PO SCH (09:00)
[2020-02-15] MEDS: INSULIN ASPART 100 UNITS/ML 3 ML PEN SC SCH ×5 (09:34→23:37)
[2020-02-15] MEDS: LACTOBACILLUS ACIDOPHILUS (FLORANEX) TAB PO SCH ×4 (09:36→21:30)
[2020-02-15] MEDS: AMOXICILLIN/CLAVULANATE 875 MG TAB PO SCH ×2 (09:36→21:30)
[2020-02-15] MEDS: methylPREDNISolone 20 MG in SYRINGE 0 ML IV SCH ×3 (09:46→21:30)
[2020-02-15] MEDS: PANTOprazole 40 MG in SYRINGE 0 ML IV SCH ×2 (09:46→21:30)
[2020-02-15] MEDS: INSULIN GLARGINE SOLOSTAR 100 UNITS/ML 3 ML PEN SC SCH (09:47)
[2020-02-15] MEDS: IRON POLYSACCHARIDE COMPLEX 150 MG CAPSULE PO SCH ×2 (09:47→21:29)
[2020-02-15] MEDS: ANASTROZOLE 1 MG TAB PO SCH (09:47)
[2020-02-15] MEDS: COLESTIPOL HCL 1 GM TAB PO SCH ×3 (09:48→22:19)
[2020-02-15] MEDS: POTASSIUM CHLORIDE 20 MEQ TABCR PO SCH ×2 (09:48→21:29)
[2020-02-15] MEDS: SERTRALINE HCL 50 MG TABLET PO SCH (09:48)
[2020-02-15] MEDS: LEVOTHYROXINE SODIUM 37.5 MCG in SYRINGE 0 ML IV SCH (09:49)
--- NOTE | 2020-02-15 10:11 | XRay Report ---
SINGLE VIEW CHEST CLINICAL HISTORY: Central venous catheter placement. FINDINGS: 2 AP, portable, upright chest radiographs are compared to study dated 02/15/2020 and correlat ed with chest CT dated 01/31/2020. The examination is degraded by portable technique and patient rotat ion. A right internal jugular central venous catheter has been placed. The tip of the catheter projec ts over the SVC. The cardiomediastinal silhouette is unremarkable. The lungs and pleural spaces are c lear. No pneumothorax is seen. The skeletal structures are osteopenic. The bony thorax is grossly int act. Calcific tendinopathy is noted in the left shoulder. IMPRESSION: 1. Right internal jugular central venous catheter has been placed as above. No pneumothorax is seen p ost procedure. 2. No airspace consolidation or pleural effusion is identified. ACT 112: Negative or not required by law. Electronically signed by: John Bojorquez M.D. 02/15/2020 10:10 AM
[2020-02-15] MEDS ORDERED: INSULIN GLARGINE SOLOSTAR 100 UNITS/ML 3 ML PEN SQ STA (11:55)
--- NOTE | 2020-02-15 13:40 | Procedure Note ---
Procedure Note Date of Service February 15, 2020 Procedure date: Noted above Procedure: Central venous access Pre-procedure indication: Poor vascular access in the setting of possible gastrointestinal hemorrhage Post-procedure Diagnosis: same as above Prior to Procedure: Informed Consent: The risks, benefits, indications, potential complications, and alternatives were explained to the patient and informed consent obtained. Attending Staff: Kely Proctor DO Resident/APC: Not applicable Skin Prep: Chlorhexidine Anesthesia: 4 mL 1% lidocaine without epinephrine The identity of the patient was confirmed and a bedside time out was performed. Description of Procedure: After sterile prep and sterile drape utilizing standard sterile technique the superficial skin of the right internal jugular area was anesthetized. The target vessel was identified and entered with an 18- gauge needle. Dark venous blood return was noted. A guidewire was inserted through the needle and into the vessel. The needle was withdrawn and a skin carrington was made. A tissue dilator was advanced via Seldinger technique and removed. A single-lumen 9 Macedonian catheter was inserted via Seldinger technique and the guidewire removed. All ports abe and flushed easily. A Biopatch was placed, and the catheter was secured via silk suture. A sterile dressing was then applied. Complications: None Estimated blood loss: Trace Patient tolerated the procedure well. Procedure Date: Noted Above Procedure: Procedural Ultrasound Indication: Central venous access Attending: Kely Proctor DO Resident/Physician Form Setter [employer] Forms: Not applicable Artery visualized: Yes Vein visualized: Yes Compressible Vein: Yes Vein patent: Yes Guidewire or Short Catheter seen in vein prior to dilation: Yes Line confirmed in Vein with ultrasound: Yes Lung Sliding on side of attempt (if applicable): NA If no lung sliding or not obtained has CXR been ordered: Yes Impression: Successful central venous access placement Images obtained are saved for permanent record Coding CPT Codes Tubes, Drains, and Vasc Access - Tubes, Drains, and Vasc Access: [id number] Insertion Of Non-tunneled Catheter Age 4 Yrs> ([id number]) Tubes, Drains, and Vasc Access - Tubes, Drains, and Vasc Access: [id number] Ultrasound Guidance For Vascular ([id number]) [facility] Procedure Codes (Charges) Tubes, Drains, and Vasc Access Procedure 1: Tubes, Drains, and Vasc Access: [id number] Insertion Of Non-tunneled Catheter Age 4 Yrs> Procedure 2: Tubes, Drains, and Vasc Access: [id number] Ultrasound Guidance For Vascular
--- NOTE | 2020-02-15 14:44 | Gastrointestinal Consultation ---
Date of Consultation February 15, 2020 Supervising Physician Co-Signing Physician Notes Attg add: I interviewed and examined pt, reviewed chart and labs. Pt with abrupt onset on hematochezia in setting of elevated INR. Hypotensive on admit, hgb drop of approx 1-2 points. Hematochezia has improved today, although still passing small volume of blood. Likely bleeding from IBD related ulcer. Would correct coagulopathy for goal INR 2. I am hoping that bleeding will stop with correction of INR. Plan flex sig if bleeding is persistent. History of Present Illness Reason for Consultation: GI bleed, anemia, UC Requesting Physician: Dr. Gonzales Attending Physician: Sayra Roldan MD History of Present Illness Ms. Daniela Carter is a 64 yr old female pt of Dr. Isaias Templeton with a hx DVTs x2 in 2018 on warfarin, CAD, Carotid artery stenosis. She is followed in GI for UC pancolitis in flare. Two recent admissions in January 2020. Discharged on prednisone 60mg daily (with taper instructions but was still on 60/day), Uceris, 9mg daily (started two days ago), mesalamine and Entyvio. Because failed Entyvio, being changed to Stellera. Initial infusion is arranged for 02/19/20. In general, was doing well since she was discharged on 02/06/20. However, yesterday, afternoon, she experienced a "hemorrhage," passing a moderate amt of bright to dark red blood rectally. Because it seems to stop and she was feeling well, she did not seek care until around 2:30AM when she passed multiple bloody BMs with clots. On arrival, Hb 6.8. She passed one BM around 10AM, brown, loose with a moderate amt of dark red blood mixed in. No nausea/vomiting. Did have weakness but no syncope. Received 2 units of RBCs. Has bilat lower abd cramping. Allergies Allergy/AdvReac Type Severity Reaction Status Date / Time aztreonam [From Azactam] Allergy Intermediate flushed Verified 02/02/20 14:55 /itching dorzolamide Allergy Unknown EYE LID Verified 02/02/20 14:55 SWELLING latanoprost Allergy Unknown EYE LID Verified 02/02/20 14:55 SWELLING Penicillins Allergy Unknown Rash Verified 02/02/20 14:55 thimerosal Allergy Unknown Unknown Verified 02/02/20 14:55 timolol Allergy Unknown EYE LID Verified 02/02/20 14:55 SWELLING Home Medications Home Medications Medication Instructions Recorded Confirmed Type calcium citrate-vitamin D3 1 tab PO QAM 05/12/18 02/15/20 History [Citracal-D3 Petites] cholecalciferol (vitamin D3) 1,000 unit PO QAM 05/12/18 02/15/20 History [Vitamin D3] levothyroxine 75 mcg PO DAILYBB 05/12/18 02/15/20 History Probiotic Acidophilus Biobeads 1 tab PO TIDM 03/22/19 02/15/20 History furosemide [Lasix] 20 mg PO QAM 03/22/19 02/15/20 History sertraline [Zoloft] 50 mg PO QAM 03/22/19 02/15/20 History anastrozole 1 mg PO QAM 07/21/19 02/15/20 History atorvastatin 40 mg PO HS 07/21/19 02/15/20 History colestipol 1 g PO TID 07/21/19 02/15/20 History potassium chloride [Klor-Con M20] 20 meq PO BID 07/21/19 02/15/20 History warfarin See Rx Instructions .ROUTE .COMPLEX 07/21/19 02/15/20 History Lantus Solostar U-100 Insulin 22 unit SUBCUT QAM 01/01/20 02/15/20 History trazodone 50 mg PO HS PRN 01/01/20 02/15/20 History polysaccharide iron complex 150 mg PO BID 01/31/20 02/15/20 History [Ferrex 150] amoxicillin-pot clavulanate 1 tab PO BID 14 Days #28 tab 02/06/20 02/15/20 Rx [Augmentin] prednisone 60 mg PO DAILY 30 Days #90 tab 02/06/20 02/15/20 Rx budesonide 9 mg PO DAILY 02/15/20 02/15/20 History fluocinonide 1 applic TOPICAL BID PRN 02/15/20 02/15/20 History pantoprazole 40 mg PO DAILY 02/15/20 02/15/20 History triamcinolone acetonide 1 applic TOPICAL BID PRN 02/15/20 02/15/20 History Patient History Medical History Acute hyponatremia (Inactive) Acute kidney injury (Inactive) Anemia (Inactive) Breast cancer, right (Chronic) 2012--SX & RADIATION, NO CHEMO C. difficile diarrhea (Inactive) Carotid artery disease 50% stenosis left ICA per duplex 01/02/20 Colitis (Inactive) Crohns disease (Chronic) Depression (Inactive) Diabetes mellitus type 2, controlled (Inactive) Diverticulitis large intestine (Inactive) DVT (deep venous thrombosis) (Inactive) BILT LEGS 03/2018 GERD (gastroesophageal reflux disease) (Chronic) GI bleed (Inactive) History of pulmonary embolus (PE) (Chronic) "dx in 2001, unprovoked" History of recent steroid use (Inactive) HLD (hyperlipidemia) (Chronic) HTN (hypertension) (Chronic) Hypertension (Inactive) Hypoglycemia associated with diabetes (Inactive) Hypokalemia (Inactive) Hypomagnesemia (Inactive) Hypothyroidism (Chronic) 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) "Abnormal right breast mammogram Biopsy-positive for DCIS Status post lumpectomy with no residual tumor stage pTis NXMX Estrogen receptor positive, progesterone receptor positive Status post completion of radiation therapy 02/22/2013 received 3850 cGy utilizing accelerated partial breast treatment " Leukocytosis (leucocytosis) (Inactive) Obesity (BMI 30-39.9) (Chronic) Pancolitis (Acute) Severe sepsis (Inactive) SIRS (systemic inflammatory response syndrome) (Inactive) UTI (urinary tract infection) (Inactive) Surgical History H/O breast biopsy (Resolved) 2012--RIGHT MALIGNANT H/O lumpectomy History of appendectomy (Resolved) History of colonoscopy (Resolved) History of lumpectomy of right breast (Resolved) "+ HERBIE ER/MI + in 10/2012 s/p RT" History of tonsillectomy and adenoidectomy (Resolved) Hx of appendectomy S/P insertion of IVC (inferior vena caval) filter (Resolved) 03/29/[address] BUSTAMANTE Status post glaucoma surgery (Resolved) BILT Family History Mother Family history of diabetes mellitus Heart disease Father Family history of diabetes mellitus Heart disease Sister Family history of diabetes mellitus Grandmother Family history of diabetes mellitus PATERNAL Uterine cancer Sister Crohn's disease Social History Smoking Status: Never smoker Second Hand Exposure: No; Do You Dip or Chew Tobacco: No; Hx Alcohol Use: No Hx Substance Use: No Preferred Language: Lebanese Communication Ability: Effective Visual Impairment: No Limitations Hearing Ability: Normal Network Cable Installer Required: No Beliefs That Will Affect Care: None marital status: Single Current Living Situation: Alone Current Living Situation Comment: alone How many Children do You have: 0 Other Information That Helps Us Care for You: No Feels Safe at Home: Yes Safety Concerns: Feels Safe At This Time Review of Systems Review of Systems: ROS: Gen: +weakness; no fevers, or weight loss Eyes: No eye redness, or pain, no recent vision changes Resp: No SOB, no cough Cardio: No palpitations/irregular beats, no chest pain GI: per HPI, otherwise (-) : Denies pain on urination Skin: No jaundice, itching or new rashes Physical Exam Constitutional: WD/WN, vitals as above Eyes: PERRL, conjunctivae normal, anicteric sclerae ENMT: external ear and nose normal, oropharynx normal Neck: trachea midline, no thyromegaly with IV access line Respiratory: normal respiratory effort, lungs clear to auscultation Cardiovascular: RRR, no murmur, no edema Gastrointestinal (Abdomen): Inspection/Auscultation: abdomen normal to inspection Percussion/Palpation: + abdomen tender (bilat lower abd) and abdomen soft Skin: no rashes, warm and dry Neurologic: PERRL, EOMI, accommodation nl, no face palsy, no dysarthria Psychiatric: A+Ox3, euthymic affect Lymphatic: no cervical or axillary lymphadenopathy Results & Data ([facility]) Vital Signs (Past 12 Hours) Vital Signs Temp Pulse Pulse Resp BP BP BP 02/15/20 14:26 36.6 C 74 18 111/70 02/15/20 13:49 36.6 C 74 18 111/70 02/15/20 13:19 36.6 C 76 18 112/71 02/15/20 13:04 36.6 C 75 18 105/64 02/15/20 12:48 36.7 C 86 18 110/70 08/06/20 12:11 36.4 C L 74 18 121/70 02/15/20 11:17 36.5 C 72 18 132/69 02/15/20 10:47 36.5 C 75 18 124/72 02/15/20 10:32 36.5 C 100 H 18 127/73 02/15/20 10:15 36.5 C 98 H 18 93/55 L 02/15/20 09:01 36.4 C L 74 20 96/64 L 02/15/20 08:05 99/65 L 02/15/20 07:45 72/47 L 02/15/20 07:37 63/46 L 02/15/20 07:25 82/47 L 02/15/20 07:20 55/42 L 02/15/20 07:18 36.4 C L 83 18 55/42 L 02/15/20 07:17 83 02/15/20 06:51 36.5 C 110 H 20 78/49 L 02/15/20 06:43 112 H 20 88/50 L 02/15/20 06:36 36.4 C L 105 H 20 74/49 L 02/15/20 06:17 36.7 C 98 H 20 98/55 L 02/15/20 05:07 114 H 18 91/60 L 02/15/20 04:00 36.6 C 103 H 18 130/75 Pulse Ox 02/15/20 14:26 99 02/15/20 13:49 99 02/15/20 13:19 97 02/15/20 13:04 100 02/15/20 12:48 100 02/15/20 12:11 99 02/15/20 11:17 99 02/15/20 10:47 98 02/15/20 10:32 97 02/15/20 10:15 97 02/15/20 09:01 100 02/15/20 08:05 02/15/20 07:45 02/15/20 07:37 02/15/20 07:25 02/15/20 07:20 02/15/20 07:18 100 02/15/20 07:17 02/15/20 06:51 100 02/15/20 06:43 99 02/15/20 06:36 98 08/06/20 06:17 100 02/15/20 05:07 98 02/15/20 04:00 98
[2020-02-15 16:29] LABS: INR 1.5 (0.9-1.1); Prothrombin Time 15.4 Seconds (9.0-12.0)
[2020-02-15 16:31] LABS: Hematocrit (blood only) 29.6 % (37-47); Hemoglobin 9.8 g/dL (12.0-16.0)
--- NOTE | 2020-02-15 17:31 | Electrocardiogram Report ---
Test Reason : Blood Pressure : / mmHG Vent. Rate : 113 BPM Atrial Rate : 113 BPM P-R Int : 130 ms QRS Dur : 068 ms QT Int : 310 ms P-R-T Axes : 058 001 048 degrees QTc Int : 425 ms Sinus tachycardia Possible Inferior infarct (cited on or before 31-JAN-2020) Abnormal ECG When compared with ECG of 31-JAN-2020 17:57, No significant change was found Confirmed by Aj Gonzalez ([id number]) on 02/15/2020 5:30:44 PM Referred By: REFERRED SELF Confirmed By:Adams Gonzalez
[2020-02-15] MEDS: ATORVASTATIN 40 MG TAB PO SCH (21:30)
[2020-02-15 23:16] LABS: Hematocrit (blood only) 27.2 % (37-47); Hemoglobin 8.9 g/dL (12.0-16.0)
[2020-02-16] MEDS: INSULIN ASPART 100 UNITS/ML 3 ML PEN SC SCH ×5 (03:39→21:00)
[2020-02-16] MEDS: SODIUM CHLORIDE 0.9% 1000ML 1,000 ML IV SCH ×3 (05:23→21:14)
[2020-02-16 05:59] LABS: Nucleated RBC # (auto) 0.09 K/uL (0-0)
[2020-02-16 06:00] LABS: Hemoglobin 8.4 g/dL (12.0-16.0); Mean Corpuscular Hemoglobin 28.8 pg (25-34); Mean Corpuscular Hgb Conc 33.6 g/dL (32-36); Mean Corpuscular Volume 85.6 fL (80-100); Mean Platelet Volume 8.8 fL (7.4-10.4); Platelet Count 213 K/uL (130-400); RDW Coefficient of Variation 18.1 % (11.5-14.5); RDW Standard Deviation 57.5 fL (36.4-46.3); Red Blood Count 2.92 M/uL (4.2-5.4); White Blood Count 8.59 K/uL (4.8-10.8)
[2020-02-16 06:03] LABS: INR 1.2 (0.9-1.1); Prothrombin Time 12.2 Seconds (9.0-12.0)
[2020-02-16 06:20] LABS: Basophils # (auto) 0.01 K/uL (0-0.2); Basophils % (auto) 0.1 %; Eosinophils # (auto) 0.01 K/uL (0-0.5); Eosinophils % (auto) 0.1 %; Immature Granulocytes # (auto) 0.57 K/uL (0.00-0.02); Immature Granulocytes % (auto) 6.6 %; Lymphocytes # (auto) 0.94 K/uL (1.2-3.4); Lymphocytes % (auto) 10.9 %; Monocytes # (auto) 0.47 K/uL (0.11-0.59); Monocytes % (auto) 5.5 %; Neutrophils # (auto) 6.59 K/uL (1.4-6.5); Neutrophils % (auto) 76.8 %; Polychromasia 1+
[2020-02-16 06:38] LABS: BUN Creatinine Ratio 17.1 (10-20); Calcium 7.6 mg/dl (8.5-10.1); Creatinine Clr Calc Pharmacy 65.7 ml/min; Est GFR (African American) 89.7; Est GFR (Non-African American) 77.4; Magnesium 1.8 mg/dl (1.8-2.4); Potassium 4.3 mmol/L (3.5-5.1)
[2020-02-16] MEDS: INSULIN GLARGINE SOLOSTAR 100 UNITS/ML 3 ML PEN SC SCH (08:19)
[2020-02-16] MEDS: ANASTROZOLE 1 MG TAB PO SCH (08:21)
[2020-02-16] MEDS: SERTRALINE HCL 50 MG TABLET PO SCH (08:21)
[2020-02-16] MEDS: AMOXICILLIN/CLAVULANATE 875 MG TAB PO SCH (08:22)
[2020-02-16] MEDS: LACTOBACILLUS ACIDOPHILUS (FLORANEX) TAB PO SCH ×4 (08:22→21:14)
[2020-02-16] MEDS: POTASSIUM CHLORIDE 20 MEQ TABCR PO SCH ×2 (08:24→21:16)
[2020-02-16] MEDS: IRON POLYSACCHARIDE COMPLEX 150 MG CAPSULE PO SCH ×2 (08:24→21:17)
[2020-02-16] MEDS: methylPREDNISolone 20 MG in SYRINGE 0 ML IV SCH (08:45)
[2020-02-16] MEDS: LEVOTHYROXINE SODIUM 37.5 MCG in SYRINGE 0 ML IV SCH (08:45)
[2020-02-16] MEDS: PANTOprazole 40 MG in SYRINGE 0 ML IV SCH ×2 (08:46→21:15)
--- NOTE | 2020-02-16 10:10 | Gastroenterology Progress Note ---
Date of Service February 16, 2020 Assessment & Plan (1) Rectal bleeding: Likely caused by severe UC in the setting of supratherapeutic INR. Resolving. Present on Admission?: Yes (2) Pancolitis: Soft diet. Change IV steroids to prednisone 60mg po daily. Stelera to start next week. Will cont to f/u in OP clinic with Ella Ng and Dr. Chow. Present on Admission?: Yes Admission and Anticipated Discharge Date Admission Date: February 15, 2020 Supervising Physician Co-Signing Physician Notes Attg add: I interviewed and examined pt, reviweed chart and labs. Pt is without complaint - denies bleeding/pain, stool frequency at baseline. ABd exam benign. Labs show slow downward drift in hgb. Anticipate d/c tomorrow. Plan PO pred 60 mg PO, then taper as recommended as previously recommended to pt as outpt. OK tro resume coumadin today. Subjective 64, female presented 02/14 for rectal bleed in the setting of severe UC and supratherapeutic Hb 6.9 on arrival + 3 units RBCs-> 8.4 today. INR reversed to 1.2. BMs now brown, loose. Comfortable, now mild bilat lower abd discomfort she says is her baseline. Review of Systems Review of Systems: ROS: Gen: +weakness (much improved since arrival); no fevers, or weight loss Eyes: No eye redness, or pain, no recent vision changes Resp: No SOB, no cough Cardio: No palpitations/irregular beats, no chest pain GI: per HPI, otherwise (-) : Denies pain on urination Skin: No jaundice, itching or new rashes Physical Exam Constitutional: WD/WN, vitals as above Eyes: PERRL, conjunctivae normal, anicteric sclerae ENMT: external ear and nose normal, oropharynx normal Neck: trachea midline, no thyromegaly Respiratory: normal respiratory effort, lungs clear to auscultation Cardiovascular: RRR, no murmur, no edema Gastrointestinal (Abdomen): Inspection/Auscultation: abdomen normal to inspection Percussion/Palpation: + abdomen tender (bilat lower abd) and abdomen soft Skin: no rashes, warm and dry Neurologic: PERRL, EOMI, accommodation nl, no face palsy, no dysarthria Psychiatric: A+Ox3, euthymic affect Lymphatic: no cervical or axillary lymphadenopathy Results & Data ([facility]) Vital Signs (Past 12 Hours) Vital Signs Temp Pulse Pulse Resp BP Pulse Ox 02/16/20 07:16 36.4 C L 66 18 138/68 93 02/16/20 07:00 57 L 02/16/20 03:10 36.9 C 59 L 17 124/66 99 02/15/20 23:51 64 02/15/20 23:16 36.7 C 67 19 121/71 98 Laboratory Results WBC 8, Hb 8.4, Hct 25, Plts 213, Na 143,, K 4.3, BUN 14, Cr 0.8, glucose 105 Diagnostic Findings CXR/Abd X-ray: 1. No active disease in the chest. 2. Nonobstructed abdominal bowel gas pattern. 3. Cholelithiasis. CT IV contrast (prior admission) 01/30: 1. Multifocal consolidation within visualized portions of the lower lungs. The findings favor multifocal pneumonia. No cavitation to strongly suggest septic emboli although this remains within the differential. A follow-up chest CT in one month to ensure resolution is recommended. 2. Wall thickening and pericolic infiltration with evidence for hyperemia involving the mid to distal transverse colon, descending colon, sigmoid colon and rectum. Similar findings shown on prior exam with interval involvement of the transverse colon. These findings suggest active inflammatory bowel disease. No abscess. No bowel obstruction. No free air. 3. No change in an indeterminate 1.1 cm left renal lesion. Given stability, this may reflect a hyperdense cyst.
--- NOTE | 2020-02-16 10:55 | Hospitalist Progress Note ---
Date of Service February 16, 2020 Assessment & Plan (1) Acute GI bleeding: (2) Supratherapeutic INR: (3) Crohns disease: (4) Acute on chronic blood loss anemia: Acute GI bleed from crohn's flare in a patient with supratherapeutic INR Hypotension from acute blood loss have resolved with IVF resuscitation and blood transfusions Bloody bowel movement resolved INR was 5 on admission. Reversed with Vit K Got 3 PRBC yesterday Hb has been stable in 8s since Patient reports she has been on warfarin 2mg on all days except 4mg when she takes 5mg. Denied any dietary changes The only med change recently is Augmentin from last discharge on 02/06/20. The drug interaction with warfarin may explain the supratherapeutic INR which predisposed patient to bleeding Patient has already got 10day dose of augmentin. Discontinued this. Resume warfarin at 2mg daily. Patient is high risk for VTE considering recurrent DVTs/PE s/p IVC filter and IBD. Monitor INR GI recommendations appreciated Steroid changed from iv methylpred to po prednisone (5) Acute renal failure superimposed on stage 3 chronic kidney disease: Secondary to GI bleed with hemorrhagic shock Cr now normal from 1.42 on admission ( from 0.79 from 02/04/20) to 0.80 today (6) History of pulmonary embolus (PE): (7) 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: Patient on coumadin Supratherapeutic INR likely due to drug interaction Coumadin was initially held Resume today and monitor (8) Pneumonia: Recent admission for GI bleed, discharged on 02/06/[address] showed multifocal consolidation thought to be likely multifocal pneumonitis vs pneumonia Was discharged on augmentin for 2 weeks and to repeat CT chest in 3 weeks with follow up with Pulm (Dr Haley) Currently stable from resp standpoint Augmentin discontinued as discussed above (9) Hypothyroidism: Continue synthroid (10) Diabetes: A1c was 8.9 Currently hyperglycemic Optimize glycemic control Admission and Anticipated Discharge Date Admission Date: February 15, 2020 Subjective Patient seen and examined. Bloody bowel movement has resolved Denied any dizziness, SOB, [place], palpitation Denied any chest pain, cough Denied any abd pain Denied any hematuria, hematemesis Physical Exam Constitutional: + well hydrated; no acute distress Eyes: PERRL, conjunctivae normal, anicteric sclerae PERRL, normal accommodation and EOM intact bilaterally ENMT: external ear and nose normal, oropharynx normal Central line in situ on right side of neck Respiratory: normal respiratory effort, lungs clear to auscultation Cardiovascular: RRR, no murmur, no edema Extremities: no pedal edema Gastrointestinal (Abdomen): normal bowel sounds, soft, nontender, no hepatosplenomegaly Musculoskeletal: no cyanosis or clubbing, extremities motor strength 5/5 Neurologic: PERRL, EOMI, accommodation nl, no face palsy, no dysarthria Psychiatric: A+Ox3, euthymic affect Results & Data Results & Data ([facility]) Vital Signs (Past 12 Hours) Vital Signs Temp Pulse Pulse Resp BP Pulse Ox 02/16/20 07:16 36.4 C L 66 18 138/68 93 02/16/20 07:00 57 L 02/16/20 03:10 36.9 C 59 L 17 124/66 99 02/15/20 23:51 64 02/15/20 23:16 36.7 C 67 19 121/71 98 Laboratory Results Laboratory Results - last 24 hr 02/15/20 02/15/20 02/15/20 16:07 16:07 16:32 WBC RBC Hgb 9.8 L Hct 29.6 L MCV MCH MCHC RDW Std Deviation RDW Coeff of Conchis Plt Count MPV Immature Gran % (Auto) Neut % (Auto) Lymph % (Auto) [place] % (Auto) Eos % (Auto) Baso % (Auto) Neut # (Auto) Lymph # (Auto) [place] # (Auto) Eos # (Auto) Baso # (Auto) Immature Gran # (Auto) Absolute Nucleated RBC Nucleated RBC % (auto) Polychromasia PT 15.4 H INR 1.5 H Sodium Potassium Chloride Carbon Dioxide Anion Gap BUN Creatinine Est Cr Clr Drug Dosing Est GFR ( Amer) Est GFR (Non-Af Amer) BUN/Creatinine Ratio Glucose POC Glucose 135 H Calcium Magnesium Lipase 02/15/20 02/15/20 02/15/20 20:18 22:56 23:18 WBC RBC Hgb 8.9 L Hct 27.2 L MCV MCH MCHC RDW Std Deviation RDW Coeff of [place]chis Plt Count MPV Immature Gran % (Auto) Neut % (Auto) Lymph % (Auto) [place] % (Auto) Eos % (Auto) Baso % (Auto) Neut # (Auto) Lymph # (Auto) [place] # (Auto) Eos # (Auto) Baso # (Auto) Immature Gran # (Auto) Absolute Nucleated RBC Nucleated RBC % (auto) Polychromasia PT INR Sodium Potassium Chloride Carbon Dioxide Anion Gap BUN Creatinine Est Cr Clr Drug Dosing Est GFR ( Amer) Est GFR (Non-Af Amer) BUN/Creatinine Ratio Glucose POC Glucose 135 H 124 H Calcium Magnesium Lipase 02/16/20 02/16/20 02/16/20 03:08 05:15 05:15 WBC RBC Hgb Hct MCV MCH MCHC RDW Std Deviation RDW Coeff of [place] Plt Count MPV Immature Gran % (Auto) Neut % (Auto) Lymph % (Auto) [place] % (Auto) Eos % (Auto) Baso % (Auto) Neut # (Auto) Lymph # (Auto) [place] # (Auto) Eos # (Auto) Baso # (Auto) Immature Gran # (Auto) Absolute Nucleated RBC Nucleated RBC % (auto) Polychromasia PT 12.2 H INR 1.2 H Sodium 143 Potassium 4.3 Chloride 116 H Carbon Dioxide 23 Anion Gap 4.0 BUN 14 Creatinine 0.80 D Est Cr Clr Drug Dosing 65.7 Est GFR ( Amer) 89.7 Est GFR (Non-Af Amer) 77.4 BUN/Creatinine Ratio 17.1 Glucose 94 POC Glucose 103 H Calcium 7.6 L Magnesium 1.8 Lipase 77 02/16/20 02/16/20 02/16/20 05:15 07:25 11:19 WBC 8.59 RBC 2.92 L Hgb 8.4 L Hct 25.0 L MCV 85.6 D MCH 28.8 MCHC 33.6 RDW Std Deviation 57.5 H RDW Coeff of Conchis 18.1 H Plt Count 213 D MPV 8.8 Immature Gran % (Auto) 6.6 Neut % (Auto) 76.8 Lymph % (Auto) 10.9 [place] % (Auto) 5.5 Eos % (Auto) 0.1 Baso % (Auto) 0.1 Neut # (Auto) 6.59 H Lymph # (Auto) 0.94 L [place] # (Auto) 0.47 Eos # (Auto) 0.01 Baso # (Auto) 0.01 Immature Gran # (Auto) 0.57 H Absolute Nucleated RBC 0.09 H Nucleated RBC % (auto) 1.0 Polychromasia 1+ PT INR Sodium Potassium Chloride Carbon Dioxide Anion Gap BUN Creatinine Est Cr Clr Drug Dosing Est GFR ( Amer) Est GFR (Non-Af Amer) BUN/Creatinine Ratio Glucose POC Glucose 105 H 123 H Calcium Magnesium Lipase (1) Crohns disease Gastrointestinal tract location: unspecified location Digestive disease complication type: unspecified complication Qualified Code(s): K50.919 - Crohn's disease, unspecified, with unspecified complications (2) Pneumonia Laterality: right Lung location: unspecified part of lung Pneumonia type: due to unspecified organism Qualified Code(s): J18.9 - Pneumonia, unspecified organism (3) Hypothyroidism Hypothyroidism type: unspecified Qualified Code(s): E03.9 - Hypothyroidism, unspecified
[2020-02-16] MEDS: COLESTIPOL HCL 1 GM TAB PO SCH ×3 (11:11→21:18)
[2020-02-16] MEDS ORDERED: WARFARIN SOD 2 MG TAB PO SCH (16:00)
[2020-02-16] MEDS: ATORVASTATIN 40 MG TAB PO SCH (21:16)
[2020-02-17] MEDS: SODIUM CHLORIDE 0.9% 1000ML 1,000 ML IV SCH (05:29)
[2020-02-17 06:09] LABS: Hematocrit (blood only) 25.5 % (37-47); Hemoglobin 8.3 g/dL (12.0-16.0); Mean Corpuscular Hemoglobin 28.1 pg (25-34); Mean Corpuscular Hgb Conc 32.5 g/dL (32-36); Mean Corpuscular Volume 86.4 fL (80-100); Mean Platelet Volume 8.6 fL (7.4-10.4); Platelet Count 149 K/uL (130-400); RDW Coefficient of Variation 18.8 % (11.5-14.5); RDW Standard Deviation 59.9 fL (36.4-46.3); Red Blood Count 2.95 M/uL (4.2-5.4)
[2020-02-17 06:15] LABS: INR 1.3 (0.9-1.1); Prothrombin Time 13.3 Seconds (9.0-12.0)
[2020-02-17 06:35] LABS: BUN Creatinine Ratio 15.9 (10-20); Calcium 7.8 mg/dl (8.5-10.1); Est GFR (African American) 101.9; Est GFR (Non-African American) 87.9; Potassium 3.9 mmol/L (3.5-5.1)
[2020-02-17] MEDS: INSULIN ASPART 100 UNITS/ML 3 ML PEN SC SCH ×2 (08:06→11:46)
[2020-02-17] MEDS: INSULIN GLARGINE SOLOSTAR 100 UNITS/ML 3 ML PEN SC SCH (08:06)
[2020-02-17] MEDS: IRON POLYSACCHARIDE COMPLEX 150 MG CAPSULE PO SCH (08:07)
[2020-02-17] MEDS: LACTOBACILLUS ACIDOPHILUS (FLORANEX) TAB PO SCH ×2 (08:07→11:44)
[2020-02-17] MEDS: POTASSIUM CHLORIDE 20 MEQ TABCR PO SCH (08:07)
[2020-02-17] MEDS: SERTRALINE HCL 50 MG TABLET PO SCH (08:07)
[2020-02-17] MEDS: ANASTROZOLE 1 MG TAB PO SCH (08:07)
[2020-02-17] MEDS: PANTOprazole 40 MG in SYRINGE 0 ML IV SCH (08:08)
[2020-02-17] MEDS ORDERED: predniSONE 20 MG TAB PO SCH (09:00)
[2020-02-17] MEDS: LEVOTHYROXINE SODIUM 37.5 MCG in SYRINGE 0 ML IV SCH (09:40)
[2020-02-17] MEDS: COLESTIPOL HCL 1 GM TAB PO SCH (09:40)
--- NOTE | 2020-02-17 11:14 | Discharge Summary ---
Date of Service February 17, 2020 Admission HPI Per Admitting Provider This is a 64-year-old female with past medical history significant for Crohn's colitis , history of diabetes, hypothyroidism, hyperlipidemia, history of DVT and pulmonary embolism, on Coumadin, status post IVC filter, history of pancolitis, history of recurrent C. diff, history of chronic kidney disease stage III. The patient lives alone, walks independently. The patient comes with bright red blood per rectum since 2:30 a.m. This is third admission since December with similar problem. The patient was here, last admission from 01/31/2020 and was discharged to 02/06/2020. At that time also came with abdominal pain, diarrhea, and blood in the stools. She had a colonoscopy which showed diffuse Crohn's colitis with ulcerative mucosa and she received 2 units of PRBC and she was discharged on 60 mg of prednisone daily and she followed up with GI yesterday. Currently, she is also on p.o. budesonide 9 mg and there is a plan to start on Stelara on 02/19/2020. Currently, she is on prednisone taper 50 mg daily. The patient says she was doing fine until last night when around 2:30 a.m. she woke up with many episodes of bloody bowel movements with a lot of clots and she felt dizzy, lightheaded. This was when she came to the ER. Hemoglobin has gone to 6.9. and ER ordered to give 2 units of PRBC. Currently complains of abdominal discomfort, 3/10 in severity. Denies any other complaints. Denies any headache. No blurred visions, no earache, no runny nose, no sore throat. No loss of sense of smell or taste. No dysphagia. Appetite is not that great. No chest pain. She always has some shortness of breath on exertion and she was found to have pneumonia last admission and is taking Augmentin for that. No cough, no nausea. Normal bladder movements. No rash. Admission Exam Per Admitting Provider GENERAL: The patient is of moderate build, not in acute distress. VITAL SIGNS: Temperature 36.6, pulse 114, blood pressure 91/60, respiratory rate 18, oxygen 98% on room air. HEENT: No pallor, no icterus. Pupils equal, round, and reactive to light. NECK: No JVD, no neck masses, no carotid bruits. CARDIOVASCULAR: S1, S2 heard. Tachycardia. No murmurs. RESPIRATORY SYSTEM: Normal AP diameter. No accessory muscle use. No wheezing, no crackles. ABDOMEN: Soft, bowel sounds present. Mild abdominal discomfort. No guarding, no rigidity, no distention. CENTRAL NERVOUS SYSTEM: Cranial nerves II-XII grossly normal. Nonfocal. EXTREMITIES: No edema, no erythema seen. Principal Diagnosis Acute GI bleed Acute blood loss anemia Supratherapeutic INR Discharge Exam Constitutional + well hydrated; no acute distress Eyes PERRL, conjunctivae normal, anicteric sclerae PERRL, normal accommodation and EOM intact bilaterally ENMT external ear and nose normal, oropharynx normal Respiratory normal respiratory effort, lungs clear to auscultation Cardiovascular RRR, no murmur, no edema Extremities: no pedal edema Gastrointestinal (Abdomen) normal bowel sounds, soft, nontender, no hepatosplenomegaly Musculoskeletal no cyanosis or clubbing, extremities motor strength 5/5 Neurologic PERRL, EOMI, accommodation nl, no face palsy, no dysarthria Psychiatric A+Ox3, euthymic affect Discharge Data Allergies Allergy/AdvReac Type Severity Reaction Status Date / Time aztreonam [From Azactam] Allergy Intermediate flushed Verified 02/02/20 14:55 /itching dorzolamide Allergy Unknown EYE LID Verified 02/02/20 14:55 SWELLING latanoprost Allergy Unknown EYE LID Verified 02/02/20 14:55 SWELLING Penicillins Allergy Unknown Rash Verified 02/02/20 14:55 thimerosal Allergy Unknown Unknown Verified 02/02/20 14:55 timolol Allergy Unknown EYE LID Verified 02/02/20 14:55 SWELLING Consultations 02/15/20 05:30 ED Decision to Admit Stat 02/15/20 07:18 Consult Case Management - Discharge Planning Routine 02/15/20 08:00 Consult Gastroenterology Routine 02/15/20 08:10 Consult Fermenter Champagne Stat Ordered Studies 02/15/20 08:33 US point of care ultrasound Routine Hospital Course (1) Acute GI bleeding: (2) Supratherapeutic INR: (3) Crohns disease: (4) Acute on chronic blood loss anemia: GI bleed in the setting of Crohn's disease related to chronic coumadin therapy Patient was hypotensive on day of admission Hypotension from acute blood loss have resolved with IVF resuscitation and blood transfusions Bloody bowel movement resolved INR was 5 on admission. Reversed with Vit K Got 3 PRBC Hb was 6.9 on admission, has been stable in 8s since after transfusions and resuscitation Patient reported she has been on warfarin 2mg on all days except wednesday when she takes 4mg. Denied any dietary changes The only med change recently is Augmentin from last discharge on 02/06/20. The drug interaction with warfarin may explain the supratherapeutic INR which predisposed patient to bleeding Patient had already gotten 10day dose of augmentin. Augmentin was discontinued Warfarin was resumed at 2mg daily. Patient is high risk for VTE considering recurrent DVTs/PE s/p IVC filter and IBD. INR is 1.3 today Patient discharged on warfarin 2mg daily. To get INR outpatient in 3 days and follow up with [facility] for continued management of coumadin Patient was evaluated by GI Was initially on iv steroid and later changed to po prednisone Discharged on prednisone taper. To continue taper per instructions from GI office visit on 02/14/20 (Pred 60mg daily x3, taper by 10mg every 3 days until last 10mg then stop) Patient stated she still has prednisone at home for the taper (5) Acute renal failure superimposed on stage 3 chronic kidney disease: Secondary to GI bleed with hemorrhagic shock Cr now normal from 1.42 on admission ( from 0.79 from 02/04/20) to 0.72 today (6) History of pulmonary embolus (PE): (7) 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: Patient on coumadin Supratherapeutic INR likely due to drug interaction as discussed above Coumadin was initially held and then resumed at 2mg daily Monitor INR (8) Pneumonia: Recent admission for GI bleed, discharged on 02/06/[address] showed multifocal consolidation thought to be likely multifocal pneumonitis vs pneumonia Was discharged on augmentin for 2 weeks and to repeat CT chest in 3 weeks with follow up with Pulm (Dr Haley) Currently stable from resp standpoint Augmentin discontinued as discussed above (9) Hypothyroidism: Continue synthroid (10) Diabetes: A1c was 8.9 Currently hyperglycemic Optimize glycemic control Total Time Total Time Spent Total Time Spent (In Minutes): 35 Total Time Includes: Examination of the Patient, Discharge Planning and Medication Reconciliation Discharge Plan Discharge Items Patient Disposition: Home - Self-Care Reason For Visit: GI BLEED Discharge Diagnosis: Lower GI bleed Acute blood loss anemia Supratherapeutic INR Activity: Resume your previous activity Non-emergency contact: Primary Care Provider and Boiler House Inspector Call non-emergency contact if: you have any medication questions and your sympto ms worsen Follow-up/Referrals: Isaias Templeton MD [Primary Care Provider] - Caesar Chow MD [Hospitalist] - 02/29/20 11:20 am (Follow up with Boiler House Inspector at [facility]) Diet: Carb Consistent or DM2, Heart Healthy and Low Fiber Ambulatory Orders: Prothrombin Time INR (Routine) Timeframe: 3 Days Location: Determined by Patient Ordered By: Sayra Arevalo Attending Provider Instructions: Ms Carter. You came to the hospital for bloody bowel movement. You were evaluated and found to have low blood pressure and elevated INR. INR was corrected by holding warfarin and giving vitamin K. You required blood transfusion (3 units). The bleeding stopped and blood pressure normalized. Your warfarin has been resumed. Please stop taking the Augmentin (antibiotic) Please take 2mg warfarin daily for now and continue to monitor your INR and follow up with anticoagulation clinic. Please follow up with Gastroenterology office. Please take the prednisone taper as previous instructed by Boiler House Inspector. Tab Prednisone 60mg daily x 3 days, reducing by 10mg every 3 days until taper is complete It was a pleasure taking care of you. Pending Studies at Discharge: No Stand-Alone Forms: My [facility] [employer], Smoking Cessation Medications and DC Order Prescriptions: Continued furosemide [Lasix] 20 mg Tablet 20 mg PO QAM RF: 0 Probiotic Acidophilus Biobeads 12.9 mg (2 billion cell) Tablet,Delayed Release (Dr/Ec) 1 tab PO TIDM RF: 0 sertraline [Zoloft] 50 mg Tablet 50 mg PO QAM RF: 0 levothyroxine 75 mcg Tablet 75 mcg PO DAILYBB RF: 0 cholecalciferol (vitamin D3) [Vitamin D3] 1,000 unit Tablet 1,000 unit PO QAM RF: 0 calcium citrate-vitamin D3 [Citracal-D3 Petites] 200 mg calcium -250 unit Tablet 1 tab PO QAM RF: 0 atorvastatin 40 mg tablet 40 mg PO HS RF: 0 anastrozole 1 mg Tablet 1 mg PO QAM RF: 0 potassium chloride [Klor-Con M20] 20 mEq Tablet,Er Particles/Crystals 20 meq PO BID RF: 0 colestipol 1 gram Tablet 1 g PO TID RF: 0 trazodone 50 mg tablet 50 mg PO HS PRN (Reason: Sleep) RF: 0 Lantus Solostar U-100 Insulin 100 unit/mL (3 mL) insulin pen 22 unit SUBCUT QAM RF: 0 polysaccharide iron complex [Ferrex 150] 150 mg iron capsule 150 mg PO BID RF: 0 prednisone 20 mg Tablet 60 mg PO DAILY 30 Days Qty: 90 RF: 0 triamcinolone acetonide 0.1 % Cream 1 applic TOPICAL BID PRN (Reason: Rash) RF: 0 fluocinonide 0.05 % Ointment 1 applic TOPICAL BID PRN (Reason: Rash) RF: 0 budesonide 9 mg tablet,delayed and ext.release 9 mg PO DAILY RF: 0 pantoprazole 40 mg tablet,delayed release (DR/EC) 40 mg PO DAILY RF: 0 Changed warfarin 4 mg tablet See Rx Instructions .ROUTE .COMPLEX Qty: 0 RF: 0 Discontinued amoxicillin-pot clavulanate [Augmentin] 875-125 mg tablet 1 tab PO BID 14 Days Qty: 28 RF: 0 Discharge Orders: Discharge Order (Routine); Ordered 02/17/20 Ordered By: Sayra [place]/Other Patient Handouts: Understanding Rectal Bleeding, Colitis Ulcerative Dc Admission Data Admit Date/Time: 02/15/20 06:06 Attending Provider: Sayra Roldan I. Admit Provider: Tanner Castillo Primary Care Provider: Isaias Templeton Other Providers: Rahul Barber ; Tanner Castillo ; Rajeev Orr ; Nasima Camarena ; Virgil Diamond ; Asia Amezcua ; Florian Greco ; Lacie Jacobson ; Pili Mcintosh ; Cheyenne Tovar ; Miguel Tsai ; Alonso Felton ; Stacia Castaneda ; Katherine Cardoso ; Mera Ng ; Natacha Sánchez ; Caesar Chow ; Martin Proctor Other Interventions: Discharge Summary Assessment (RN) Last Done: 02/17/20 11:30 DC Date/Time DO NOT enter until pt leaves facility: 02/17/20 12:38
[2020-02-17] MEDS ORDERED: PANTOprazole 40 MG TAB PO SCH (21:00)
== END 2020-02-17 12:38 | disposition home or self-care (01) | DRG 385 ==
LOC: ED 04:00 → SUATTDRO 06:06 → 2S 06:06

== ENCOUNTER 2020-03-08 11:40 | Inpatient (IN) ==
[2020-03-08] MEDS ORDERED: SODIUM CHLORIDE 0.9% 500 ML IV STA (14:20)
[2020-03-08] MEDS ORDERED: SODIUM CHLORIDE 0.9% 250 ML IV PRN ×2 (14:20→15:11)
[2020-03-08 14:37] LABS: Hematocrit (blood only) 22.9 % (37-47); Mean Corpuscular Hgb Conc 30.6 g/dL (32-36); Mean Corpuscular Volume 85.1 fL (80-100); Platelet Count 477 K/uL (130-400); RDW Coefficient of Variation 16.7 % (11.5-14.5); RDW Standard Deviation 51.5 fL (36.4-46.3); Red Blood Count 2.69 M/uL (4.2-5.4); White Blood Count 10.28 K/uL (4.8-10.8)
--- NOTE | 2020-03-08 14:37 | Emergency Department Note ---
Impression & Plan Weakness, Acute GI bleeding, Anemia, SOB (shortness of breath) ED Provider Note NAME: TYRESE PEÑALOZA AGE: 64 SEX: F : 1955 ARRIVES VIA: Walk-In INFORMANT: [Patient][family] ED PROVIDER(S): [John Boyd MD] CHIEF COMPLAINT: GI bleeding HISTORY OF PRESENT ILLNESS: The patient is a 64-year-old female who presents to the ED with complaints of GI bleeding. The patient has a history of the same. She is on Coumadin. The patient has had some bleeding on and off for a few days but today, the bleeding was heavy. She has some crampy abdominal pain but this is always present because of her Crohn's. She has noticed some shortness of breath and fatigue and weakness and her family believes she is more pale. While waiting in the waiting room today, she had a 30-minute episode of chest discomfort where she described her chest as being heavy and squeezing. The pain was a 3/10. It resolved spontaneously and is not present now. No pain radiation, no sweating. There has been no fever, no cough or cold or congestion. She has not had urinary complaints. REVIEW OF SYSTEMS: See HPI for pertinent positives and negatives. A total of ten systems were reviewed and were otherwise negative. PMHx/PSHx: See Below SOCIAL HISTORY: See Below. PHYSICAL EXAM: GENERAL: Patient is in no acute distress. HEENT: No acute trauma, normocephalic atraumatic, mucous membranes moist, no nasal congestion, no scleral icterus. NECK: No stridor, no adenopathy, no meningismus, trachea is midline. LUNGS: Clear to auscultation bilaterally, no wheeze, no rhonchi, breath sounds equal. HEART: Without murmurs gallops or rubs, regular rate and rhythm. ABDOMEN: Soft, nontender, bowel sounds positive, no hernias, no peritonitis. EXTREMITIES: No cyanosis or edema, full range of motion of all the joints without pain or difficulty, no signs for acute trauma. NEUROLOGIC: Oriented x 3, no acute motor or sensory deficits, no focal weakness. SKIN: No rash, no jaundice, no diaphoresis. Pale. DIFFERENTIAL DIAGNOSIS: Diverticulosis, AVM, coagulopathy, colitis, inflammatory bowel disease, malignancy, Lisette-Mccartney tear, esophagitis, peptic ulcer disease, variceal bleed, gastritis, epistaxis, fissure, hemorrhoids, as well as other pathologies. EMERGENCY DEPARTMENT COURSE/PROCEDURES: ECG: Indication was GI bleeding and shortness of breath. The ECG shows a normal sinus rhythm with a rate of 96. The QTc is 411. 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 No PVCs. Continuous Cardiac Monitoring: An order was placed for continuous cardiac monitoring. The monitor shows a rate of 82 with normal sinus rhythm. Critical Care Note: I have personally spent greater than 46 minutes of critical care time in the direct management of this patient. This includes bedside care, interpretation of diagnostic studies, and testing, discussion with consultants, patient, and family members, and other required patient management activities. This 46 minutes is in excess of all separately billable procedures. MEDICAL DECISION MAKING: There is no leukocytosis. The patient is anemic with a hemoglobin of 7, this is a drop for her. The platelet count is actually slightly high at 477. INR is 1.8, this is elevated and consistent with her Coumadin use. No concerning electrolyte abnormality, no kidney failure. No liver enzyme elevation. The ECG shows a sinus rhythm, no acute ischemia. Cardiac enzyme testing x1 is slightly elevated, this troponin elevation could be from cardiac injury or possibly just mismatch. The patient is in need of blood via transfusion. She did consent to transfused packed red blood cells. The appropriate paperwork was completed and signed. I have ordered for 1 unit to be transfused while here in the ED. I spoke to the patient, I talked with case management, given the lower GI bleeding, given her symptoms and given her hemoglobin value, hospitalization is warranted. The on-call hospitalist was consulted. Past Med/Surg History Medical History (Updated 03/08/20 @ 21:51 by John Boyd MD) Acute hyponatremia Acute kidney injury Anemia Breast cancer, right 2012--SX & RADIATION, NO CHEMO C. 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) "Abnormal right breast mammogram Biopsy-positive for DCIS Status post lumpectomy with no residual tumor stage pTis NXMX Estrogen receptor positive, progesterone receptor positive Status post completion of radiation therapy 02/22/2013 received 3850 cGy utilizing accelerated partial breast treatment " Leukocytosis (leucocytosis) Obesity (BMI 30-39.9) Pancolitis Severe sepsis SIRS (systemic inflammatory response syndrome) UTI (urinary tract infection) Surgical History H/O breast biopsy 2012--RIGHT MALIGNANT H/O lumpectomy History of appendectomy History of colonoscopy History of lumpectomy of right breast "+ HERBIE ER/[place] + in 10/2012 s/p RT" History of tonsillectomy and adenoidectomy Hx of appendectomy S/P insertion of IVC (inferior vena caval) filter 03/29/[address] BUSTAMANTE Status post glaucoma surgery BILT Family History Mother Family history of diabetes mellitus Heart disease Father Family history of diabetes mellitus Heart disease Sister Family history of diabetes mellitus Grandmother Family history of diabetes mellitus PATERNAL Uterine cancer Sister Crohn's disease Social History Smoking Status: Never smoker Second Hand Exposure: No; Hx Alcohol Use: No Hx Substance Use: No Preferred Language: Pashto Communication Ability: Effective Visual Impairment: No Limitations Hearing Ability: Normal Automation Technologist Required: No Beliefs That Will Affect Care: None marital status: Single Current Living Situation: Alone Current Living Situation Comment: alone How many Children do You have: 0 Other Information That Helps Us Care for You: No Feels Safe at Home: Yes Safety Concerns: Feels Safe At This Time Allergies Allergies Allergy/AdvReac Type Severity Reaction Status Date / Time aztreonam [From Azactam] Allergy Intermediate flushed Verified 03/08/20 15:26 /itching dorzolamide Allergy Unknown EYE LID Verified 03/08/20 15:26 SWELLING latanoprost Allergy Unknown EYE LID Verified 03/08/20 15:26 SWELLING Penicillins Allergy Unknown Rash Verified 03/08/20 15:26 thimerosal Allergy Unknown Unknown Verified 03/08/20 15:26 timolol Allergy Unknown EYE LID Verified 03/08/20 15:26 SWELLING empagliflozin AdvReac Severe Confusion Unverified 03/08/20 15:26 [From Albertoance] Home Meds Home Medications Medication Instructions Recorded Confirmed calcium citrate-vitamin D3 1 tab PO QAM 05/12/18 03/08/20 [Citracal-D3 Petites] cholecalciferol (vitamin D3) 1,000 unit PO QAM 05/12/18 03/08/20 [Vitamin D3] levothyroxine 75 mcg PO DAILYBB 05/12/18 03/08/20 Probiotic Acidophilus Biobeads 1 tab PO TIDM 03/22/19 03/08/20 furosemide [Lasix] 20 mg PO QAM 03/22/19 03/08/20 sertraline [Zoloft] 50 mg PO QAM 03/22/19 03/08/20 anastrozole 1 mg PO QAM 07/21/19 03/08/20 atorvastatin 40 mg PO HS 07/21/19 03/08/20 colestipol 1 g PO TID 07/21/19 03/08/20 potassium chloride [Klor-Con M20] 20 meq PO BID 07/21/19 03/08/20 Lantus Solostar U-100 Insulin 22 unit SUBCUT QAM 01/01/20 03/08/20 trazodone 50 mg PO HS PRN 01/01/20 03/08/20 polysaccharide iron complex 150 mg PO BID 01/31/20 03/08/20 [Ferrex 150] budesonide 9 mg PO QAM 02/15/20 03/08/20 fluocinonide 1 applic TOPICAL BID PRN 02/15/20 03/08/20 pantoprazole 40 mg PO QAM 02/15/20 03/08/20 triamcinolone acetonide 1 applic TOPICAL BID PRN 02/15/20 03/08/20 dicyclomine 10 mg PO BID PRN 03/08/20 03/08/20 prednisone 10 mg PO UD 03/08/20 03/08/20 Results & Data (ED) Vital Signs Vital Signs - 24 hr 03/08/20 11:56 03/08/20 13:32 03/08/20 15:27 Temperature 37.1 C Temperature Source Oral Pulse Rate - Lying Pulse Rate - Sitting Pulse Rate - Standing Pulse Rate 138 H Pulse Rate [Right Finger] 105 H 95 H Pulse Rhythm Regular Pulse Strength Normal Respiratory Rate 20 18 20 Respiratory Effort / Characteristics Non-Labored Spontaneous Non-Labored Spontaneous Respiratory Depth Normal Normal Respiratory Pattern Regular Regular Blood Pressure - Lying Blood Pressure - Sitting Blood Pressure- Standing Blood Pressure 104/71 Blood Pressure [Right Arm] 115/67 111/65 Blood Pressure Mean 82 Blood Pressure Mean [Right Arm] 83 80 Blood Pressure Position Sitting Blood Pressure Position [Right Arm] Lying Pulse Oximetry 100 99 100 Oxygen Delivery Method Room Air Room Air Sepsis Recent Fever Within 48 Hours No Sepsis New/Unexplained Change in Mental Status No Sepsis Action Taken by Nursing No Action Required 03/08/20 15:33 03/08/20 15:54 03/08/20 15:57 Temperature 37.2 C 36.7 C Temperature Source Oral Oral Pulse Rate - Lying 100 H Pulse Rate - Sitting 118 H Pulse Rate - Standing 116 H Pulse Rate 89 82 Pulse Rate [Right Finger] Pulse Rhythm Pulse Strength Respiratory Rate 16 20 Respiratory Effort / Characteristics Respiratory Depth Respiratory Pattern Blood Pressure - Lying 108/84 Blood Pressure - Sitting 108/69 Blood Pressure- Standing 105/69 Blood Pressure 105/69 119/69 Blood Pressure [Right Arm] Blood Pressure Mean 81 85 Blood Pressure Mean [Right Arm] Blood Pressure Position Sitting Blood Pressure Position [Right Arm] Pulse Oximetry 100 100 Oxygen Delivery Method Sepsis Recent Fever Within 48 Hours Sepsis New/Unexplained Change in Mental Status Sepsis Action Taken by Residential Medications Current Medication List: was personally reviewed by me Laboratory Data Attestation: I reviewed the patient's lab results. Result diagrams: 03/08/20 20:59 03/08/20 13:53 Lab Results 03/08/20 03/08/20 03/08/20 Range/Units 13:53 13:53 13:53 WBC 10.28 (4.8-10.8) K/uL RBC 2.69 L (4.2-5.4) M/uL Hgb 7.0 L (12.0-16.0) g/dL Hct 22.9 L (37-47) % MCV 85.1 (80-100) fL MCH 26.0 (25-34) pg MCHC 30.6 L (32-36) g/dL RDW Std Deviation 51.5 H (36.4-46.3) fL RDW Coeff of Conchis 16.7 H (11.5-14.5) % Plt Count 477 H (130-400) K/uL MPV 9.0 (7.4-10.4) fL Absolute Nucleated RBC 0.10 H (0-0) K/uL Nucleated RBC % (auto) 1.0 % PT 18.0 H (9.0-12.0) Seconds INR 1.8 H (0.9-1.1) APTT 33.4 H (21.0-31.0) Seconds PTT Ratio 1.2 Sodium (136-145) mmol/L Potassium (3.5-5.1) mmol/L Chloride (98-107) mmol/L Carbon Dioxide (21-32) mmol/L Anion Gap (3-11) BUN (7-18) mg/dl Creatinine (0.6-1.2) mg/dl Est Cr Clr Drug Dosing ml/min Est GFR ( Amer) Est GFR (Non-Af Amer) BUN/Creatinine Ratio (10-20) Glucose (70-99) mg/dl Calcium (8.5-10.1) mg/dl Magnesium (1.8-2.4) mg/dl Total Bilirubin (0.2-1) mg/dl AST (15-37) U/L ALT (12-78) U/L Alkaline Phosphatase (45-117) U/L Troponin I (0-0.045) ng/ml Total Protein (6.4-8.2) gm/dl Albumin (3.4-5.0) gm/dl Globulin (2.5-4.0) gm/dl Albumin/Globulin Ratio (0.9-2) Blood Type AB Negative Antibody Screen NEGATIVE Crossmatch See Detail 03/08/20 Range/Units 13:53 WBC (4.8-10.8) K/uL RBC (4.2-5.4) M/uL Hgb (12.0-16.0) g/dL Hct (37-47) % MCV (80-100) fL MCH (25-34) pg MCHC (32-36) g/dL RDW Std Deviation (36.4-46.3) fL RDW Coeff of Conchis (11.5-14.5) % Plt Count (130-400) K/uL MPV (7.4-10.4) fL Absolute Nucleated RBC (0-0) K/uL Nucleated RBC % (auto) % PT (9.0-12.0) Seconds INR (0.9-1.1) APTT (21.0-31.0) Seconds PTT Ratio Sodium 135 L (136-145) mmol/L Potassium 3.9 (3.5-5.1) mmol/L Chloride 104 (98-107) mmol/L Carbon Dioxide 23 (21-32) mmol/L Anion Gap 8.0 (3-11) BUN 29 H (7-18) mg/dl Creatinine 1.13 (0.6-1.2) mg/dl Est Cr Clr Drug Dosing 40.0 ml/min Est GFR ( Amer) 59.1 Est GFR (Non-Af Amer) 51.0 BUN/Creatinine Ratio 26.1 H (10-20) Glucose 219 H (70-99) mg/dl Calcium 8.8 (8.5-10.1) mg/dl Magnesium 2.2 (1.8-2.4) mg/dl Total Bilirubin 0.3 (0.2-1) mg/dl AST 8 L (15-37) U/L ALT 9 L (12-78) U/L Alkaline Phosphatase 90 (45-117) U/L Troponin I 0.488 H* (0-0.045) ng/ml Total Protein 6.5 (6.4-8.2) gm/dl Albumin 2.4 L (3.4-5.0) gm/dl Globulin 4.1 H (2.5-4.0) gm/dl Albumin/Globulin Ratio 0.6 L (0.9-2) Blood Type Antibody Screen Crossmatch Administered Medications Atorvastatin Calcium (Atorvastatin 40 Mg Tab) 40 mg PO HS RACHEL Stop: 04/07/20 20:59 Last Admin: 03/08/20 20:03 Dose: 40 mg Documented by: [id number] Colestipol HCl (Colestipol Hcl 1 Gm Tab) 1 gm PO TID@1000,1500,2200 RACHEL Stop: 04/07/20 21:59 Last Admin: 03/08/20 22:23 Dose: 1 gm Documented by: [id number] Sodium Chloride (Nss) 250 mls @ 15 mls/hr IV .[id number] PRN PRN Reason: For Transfusion Stop: 03/09/20 00:21 Last Admin: 03/08/20 15:58 Dose: 15 mls/hr Documented by: [id number] Sodium Chloride (Nss 1000ml) 1,000 mls @ 80 mls/hr IV .[id number] RACHEL Stop: 03/09/20 06:01 Last Admin: 03/08/20 18:37 Dose: 80 mls/hr Documented by: [id number] Insulin Glargine (Insulin Glargine Solostar 100 Units/Ml 3 Ml Pen) 6 units SC BID RACHEL Stop: 04/07/20 20:59 Last Admin: 03/08/20 20:20 Dose: Not Given Documented by: [id number] Polysaccharide Iron Complex (Iron Polysaccharide Complex 150 Mg Capsule) 150 mg PO BID RACHEL Stop: 04/07/20 20:59 Last Admin: 03/08/20 20:04 Dose: 150 mg Documented by: [id number] Potassium Chloride (Potassium Chloride 20 Meq Tabcr) 20 meq PO BID RACHEL Stop: 04/07/20 20:59 Last Admin: 03/08/20 20:04 Dose: 20 meq Documented by: [id number] Discontinued Medications Sodium Chloride (Nss) 500 mls @ 999 mls/hr IV .Q31M STA Stop: 03/08/20 14:50 Last Admin: 03/08/20 17:37 Dose: Not Given Documented by: [id number] Blood Pressure Blood Pressure Findings: Elevated blood pressure Blood Pressure Disposition: further management by hospitalist Discharge Plan Visit Data Chief Complaint: GI Bleed Stated Complaint: REF BY DR, SOB, BLOODY STOOL, LOW HEART RATE ED Provider: John Boyd Discharge Problem: Weakness, Acute GI bleeding, Anemia, SOB (shortness of breath) Patient Disposition: Admitted As Inpatient Condition: Fair Discharge Instructions Interventions: ED Discharge Assessment Last Done: 03/08/20 16:45 Discharge Problem: Anemia Qualifiers: Anemia type: unspecified type Qualified Code(s): D64.9 - Anemia, unspecified
--- NOTE | 2020-03-08 14:43 | Electrocardiogram Report ---
Test Reason : Blood Pressure : / mmHG Vent. Rate : 096 BPM Atrial Rate : 096 BPM P-R Int : 134 ms QRS Dur : 072 ms QT Int : 326 ms P-R-T Axes : 044 -12 031 degrees QTc Int : 411 ms Normal sinus rhythm Old Inferior infarct (cited on or before 31-JAN-2020) Abnormal ECG When compared with ECG of 15-FEB-2020 04:08, No significant change was found Confirmed by Denzel Bradshaw ([id number]) on 03/08/2020 2:43:19 PM Referred By: Isaias Templeton Confirmed By:Denzel Bradshaw
[2020-03-08 14:49] LABS: INR 1.8 (0.9-1.1); Partial Thromboplastin Ratio 1.2; Partial Thromboplastin Time 33.4 Seconds (21.0-31.0)
[2020-03-08 14:52] LABS: Albumin Level 2.4 gm/dl (3.4-5.0); BUN Creatinine Ratio 26.1 (10-20); Calcium 8.8 mg/dl (8.5-10.1); Est GFR (African American) 59.1; Magnesium 2.2 mg/dl (1.8-2.4); Potassium 3.9 mmol/L (3.5-5.1)
[2020-03-08 15:14] LABS: Albumin Globulin Ratio 0.6 (0.9-2); Bilirubin,Total 0.3 mg/dl (0.2-1); Globulin 4.1 gm/dl (2.5-4.0); Total Protein 6.5 gm/dl (6.4-8.2); Troponin I 0.488 ng/ml (0-0.045)
--- NOTE | 2020-03-08 16:56 | History & Physical Report ---
Date of Service March 08, 2020 Assessment & Plan (1) Rectal bleeding: (2) Symptomatic anemia: (3) Crohns disease: Pt is 64 y/o M with PMH IBD initially thought UC, now suspected Crohn's, Insulin-dependent diabetes, hypothyroidism, hyperlipidemia, history of DVT and pulmonary s/p IVC filter on Coumadin, history recurrent C. diff, CKD III, breast CA presented to ER with complaint of bright red rectal bleeding today. chronic aching/cramping sensation to bilateral lower abdomen and denies any increased abdominal pain. Reports last couple days has noticed black-colored stools. 03/06/2020 had outpatient INR of 7.5 and Coumadin held past 2 days. Today had 2 episodes of loose stools with bright red blood. Today patient lightheaded with standing and noticed she was short of breath and had chest tightness with climbing stairs. In ER patient afebrile,P: 138 down to 95, RR: 20, BP 104/71 up to 120/63, 100% on room air. No leukocytosis, H/H: 01/30 (Hgb: 8.83 on 02/16), INR: 1.8 -In ER given 500 mL NSS bolus -Typed and crossed for 2 units PRBCs with 1 unit transfusing in ER -Repeat H&H every 6 hours. Transfuse additional PRBCs as needed -Gentle IVF -N.p.o. -We will continue patient's current prednisone taper for now -Continue uceris -Hold Coumadin -GI consult, [employer] aware and suggests stool studies and C. difficile -CBC, BMP in a.m. (4) Elevated troponin: Troponin: 0.4. EKG sinus rhythm without acute changes compared to prior EKG. Patient reports today shortness of breath and chest tightness with climbing stairs only. At rest patient is denying any shortness of breath. And denies any current chest tightness -Elevated troponin likely secondary to demand -Trend troponin -Repeat EKG in a.m. (5) History of pulmonary embolus (PE): History of DVT/PE. S/p IVC filter. On Coumadin 03/06/2020 outpatient INR: 7.5, Coumadin has been on hold since. -INR today in ER 1.8 -Continue to hold Coumadin secondary to rectal bleeding -Monitor INR (6) Diabetes: A1c: 8.9 on 01/2020 -We will decrease patient's home Lantus since patient is currently n.p.o. -NovoLog sliding scale per protocol -Monitor BSG (7) CKD (chronic kidney disease), stage III: Cr: 1.1. Baseline ~1.0 -Monitor renal functions -Avoid nephrotoxic agents when possible (8) Hypothyroidism: -Continue levothyroxine (9) Depression: -Continue sertraline DVT Prophylaxis -SCDs for now Full Code as per discussion with pt Follows with Dr Templeton for routine care Pt was seen and care coordinated with Dr Hong. See addendum History of Present Illness Chief Complaint: Rectal bleeding Primary Care Provider: Isaias Templeton MD Pt is 64 y/o M with PMH IBD initially thought UC, now suspected Crohn's, Insulin-dependent diabetes, hypothyroidism, hyperlipidemia, history of DVT and pulmonary s/p IVC filter on Coumadin, history recurrent C. diff, CKD III, breast CA presented to ER with complaint of bright red rectal bleeding today. Patient with several recent admissions for rectal bleeding past couple of months. Most recent admission 02/15/2020-02/17/2020 for rectal bleeding with supratherapeutic INR that was thought secondary to Augmentin. Upon discharge at that time hemoglobin was 8.3. Patient states was doing well. She reports chronic aching/cramping sensation to bilateral lower abdomen and denies any increased abdominal pain. Reports last couple days has noticed black-colored stools. 03/06/2020 had outpatient INR of 7.5. Coumadin has been held the past 2 days and had repeat outpatient INR of 2.2 today. Today had 2 episodes of loose stools with bright red blood. Today patient lightheaded with standing and noticed she was short of breath and had chest tightness with climbing stairs. Patient denies any current chest tightness or shortness of breath. She reports has heartburn at baseline. Patient denies syncope, palpitations. She seen by outpatient GI on 02/29/2020 and her prednisone is being tapered. Patient started 10 mg daily yesterday for 3 days then is to go to 5 mg daily for 3 days and discontinue. She is currently on Stelara and use you Uceris. Denies fever/chills, diaphoresis, N/V, SAPP, vision changes, neck pain, cough, sore throat, choking, otalgia, rhinorrhea, paresthesias, extremity weakness, extremity edema, rashes, urinary symptoms. Allergies Allergy/AdvReac Type Severity Reaction Status Date / Time aztreonam [From Azactam] Allergy Intermediate flushed Verified 03/08/20 15:26 /itching dorzolamide Allergy Unknown EYE LID Verified 03/08/20 15:26 SWELLING latanoprost Allergy Unknown EYE LID Verified 03/08/20 15:26 SWELLING Penicillins Allergy Unknown Rash Verified 03/08/20 15:26 thimerosal Allergy Unknown Unknown Verified 03/08/20 15:26 timolol Allergy Unknown EYE LID Verified 03/08/20 15:26 SWELLING empagliflozin AdvReac Severe Confusion Unverified 03/08/20 15:26 [From Jardiance] Home Medications Home Medications Medication Instructions Recorded Confirmed Type calcium citrate-vitamin D3 1 tab PO QAM 05/12/18 03/08/20 History [Citracal-D3 Petites] cholecalciferol (vitamin D3) 1,000 unit PO QAM 05/12/18 03/08/20 History [Vitamin D3] levothyroxine 75 mcg PO DAILYBB 05/12/18 03/08/20 History Probiotic Acidophilus Biobeads 1 tab PO TIDM 03/22/19 03/08/20 History furosemide [Lasix] 20 mg PO QAM 03/22/19 03/08/20 History sertraline [Zoloft] 50 mg PO QAM 03/22/19 03/08/20 History anastrozole 1 mg PO QAM 07/21/19 03/08/20 History atorvastatin 40 mg PO HS 07/21/19 03/08/20 History colestipol 1 g PO TID 07/21/19 03/08/20 History potassium chloride [Klor-Con M20] 20 meq PO BID 07/21/19 03/08/20 History Lantus Solostar U-100 Insulin 22 unit SUBCUT QAM 01/01/20 03/08/20 History trazodone 50 mg PO HS PRN 01/01/20 03/08/20 History polysaccharide iron complex 150 mg PO BID 01/31/20 03/08/20 History [Ferrex 150] budesonide 9 mg PO QAM 02/15/20 03/08/20 History fluocinonide 1 applic TOPICAL BID PRN 02/15/20 03/08/20 History pantoprazole 40 mg PO QAM 02/15/20 03/08/20 History triamcinolone acetonide 1 applic TOPICAL BID PRN 02/15/20 03/08/20 History dicyclomine 10 mg PO BID PRN 03/08/20 03/08/20 History prednisone 10 mg PO UD 03/08/20 03/08/20 History Past Med/Surg History Medical History (Updated 03/08/20 @ 21:51 by John Boyd MD) Acute hyponatremia Acute kidney injury Anemia Breast cancer, right 2012--SX & RADIATION, NO CHEMO C. 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) "Abnormal right breast mammogram Biopsy-positive for DCIS Status post lumpectomy with no residual tumor stage pTis NXMX Estrogen receptor positive, progesterone receptor positive Status post completion of radiation therapy 02/22/2013 received 3850 cGy utilizing accelerated partial breast treatment " Leukocytosis (leucocytosis) Obesity (BMI 30-39.9) Pancolitis Severe sepsis SIRS (systemic inflammatory response syndrome) UTI (urinary tract infection) Surgical History H/O breast biopsy 2012--RIGHT MALIGNANT H/O lumpectomy History of appendectomy History of colonoscopy History of lumpectomy of right breast "+ HERBIE ER/SD + in 10/2012 s/p RT" History of tonsillectomy and adenoidectomy Hx of appendectomy S/P insertion of IVC (inferior vena caval) filter 03/29/[address] BUSTAMANTE Status post glaucoma surgery BILT Family History Mother Family history of diabetes mellitus Heart disease Father Family history of diabetes mellitus Heart disease Sister Family history of diabetes mellitus Grandmother Family history of diabetes mellitus PATERNAL Uterine cancer Sister Crohn's disease Social History Smoking Status: Never smoker Second Hand Exposure: No; Hx Alcohol Use: No Hx Substance Use: No Preferred Language: Faroese Communication Ability: Effective Visual Impairment: No Limitations Hearing Ability: Normal Morning News Anchor Required: No Beliefs That Will Affect Care: None marital status: Single Current Living Situation: Alone Current Living Situation Comment: alone How many Children do You have: 0 Other Information That Helps Us Care for You: No Feels Safe at Home: Yes Safety Concerns: Feels Safe At This Time Review of Systems Review of Systems: All systems reviewed & are unremarkable except as noted in HPI & below Physical Exam Physical Exam: General: no distress, WDWN Head: normocephalic, atraumatic Eyes: PERRL, EOM's intact, conjunctiva non-injected, anicteric ENT: normal inspection external ears, nose, mucous membranes moist Neck: supple, trachea midline Lungs: clear, no respiratory distress, no wheezing/rhonchi/rales CV: RRR, no murmur, no pretibial edema Abd: normal BS, soft, mild tenderness to palpation bilateral lower abdomen without rebound or guarding Ext: no cyanosis, no calf tenderness Neuro: A&O x 3, no focal deficits noted, normal affect Skin: warm, dry Results & Data Results & Data ([facility]) Vital Signs (Past 12 Hours) Vital Signs Temp Pulse Pulse Resp BP BP Pulse Ox 03/08/20 16:12 37.2 C 81 20 120/63 96 03/08/20 16:08 36.7 C 82 20 139/84 98 03/08/20 16:06 87 20 136/74 97 03/08/20 15:57 36.7 C 82 20 119/69 100 03/08/20 15:54 37.2 C 89 16 105/69 100 03/08/20 15:27 95 H 20 111/65 100 03/08/20 13:32 105 H 18 115/67 99 03/08/20 11:56 37.1 C 138 H 20 104/71 100 Laboratory Results Short CBC 03/08/20 Range/Units 13:53 WBC 10.28 (4.8-10.8) K/uL Hgb 7.0 L (12.0-16.0) g/dL Hct 22.9 L (37-47) % Plt Count 477 H (130-400) K/uL BMP 03/08/20 13:53 Sodium 135 L Potassium 3.9 Chloride 104 Carbon Dioxide 23 BUN 29 H Creatinine 1.13 Glucose 219 H Calcium 8.8 Cardiac Enzymes 03/08/20 Range/Units 13:53 Troponin I 0.488 H* (0-0.045) ng/ml Liver Function 03/08/20 Range/Units 13:53 Total Bilirubin 0.3 (0.2-1) mg/dl AST 8 L (15-37) U/L ALT 9 L (12-78) U/L Alkaline Phosphatase 90 (45-117) U/L Albumin 2.4 L (3.4-5.0) gm/dl ECG Rhythm: sinus rhythm Change: no significant change Code Status & VTE Plan VTE Prophylaxis Plan VTE Prophylaxis will be ordered: Yes Supervising Physician Co-Signing Physician Notes Attending Addendum: care coordinated with RHEA Lucas please refer to her notes for full details, I agree with her notes patient seen and examined, records reviewed by myself as well on exam, patient seen resting in bed, comfortable mild abdominal discomfort, no recurrence of rectal bleed while admitted no other symptoms VS noted and reviewed oriented x 3 , not in distress, speaks in sentences with no effort nor accessory muscle use normal rate, regular rhythm, no murmurs clear breath sounds bilaterally non distended, soft, nontender no bipedal edema, erythema, warmth no neuro deficits WBC 10.2 Hg 7.0 Crea 1.1 INR 1.8 Trop 0.4 ASSESSMENT AND PLAN> 64 year old female with history of Crohn's Disease, Chronic Coumadin for History of PE, s/p IVC filter placement, DM, CKD III, presenting with rectal bleeding. RECTAL BLEEDING, LIKELY SECONDARY CROHN'S DISEASE ON COUMADIN FOR HISTORY OF PE, INR 1.8 GI consulted- conservative management for now, continue usual Prednisone Stool culture, C diff test Hg 7.0, 1 unit PRBC transfused, repeat Hg pending CHRONIC COUMADIN THERAPY FOR HISTORY OF PE history of IVC filter placement INR 1.8 hold coumadin monitor other diagnoses and plan of care as per RHEA Lucas notes Catarino Hong MD (1) Crohns disease Digestive disease complication type: unspecified complication Gastrointestinal tract location: unspecified location Qualified Code(s): K50.919 - Crohn's disease, unspecified, with unspecified complications (2) Hypothyroidism Hypothyroidism type: unspecified Qualified Code(s): E03.9 - Hypothyroidism, unspecified
[2020-03-08] MEDS ORDERED: TRAZODONE HCL 50 MG TAB PO PRN (17:32)
[2020-03-08] MEDS ORDERED: GLUCOSE 40% GEL 15 GM TUBE PO PRN (17:32)
[2020-03-08] MEDS ORDERED: DEXTROSE 50% 50 ML SYRINGE IV PRN (17:32)
[2020-03-08] MEDS ORDERED: TRIAMCINOLONE ACET 0.1% CR 15 GM TUBE TOP PRN (17:32)
[2020-03-08] MEDS ORDERED: GLUCOSE 10 TABS/TUBE PO PRN (17:32)
[2020-03-08] MEDS ORDERED: DICYCLOMINE HCL 10 MG CAP PO PRN (17:32)
[2020-03-08] MEDS ORDERED: SODIUM CHLORIDE 0.9% 1000ML 1,000 ML IV SCH (17:32)
[2020-03-08] MEDS ORDERED: GLUCAGON FOR INJ 1 MG VIAL SQ PRN (17:32)
[2020-03-08] MEDS ORDERED: ACETAMINOPHEN 325 MG TAB PO PRN (17:32)
[2020-03-08] MEDS ORDERED: CARBOHYDRATES FOR HYPOGLYCEMIA PO PRN (17:32)
--- NOTE | 2020-03-08 17:39 | XRay Report ---
XR chest 1V portable CLINICAL HISTORY: SOB COMPARISON STUDY: 02/15/2020 FINDINGS: The heart is mildly enlarged. There is no lobar consolidation. There are no pleural effusio ns. There is no failure. There are subtle bilateral nodular opacities, likely related to the nodules visualized on the prior CT scan. It should be noted that a one month follow-up CT scan was recommende d at the time of the preceding examination.[ IMPRESSION: 1. Subtle nonspecific bilateral pulmonary nodular opacities. 2. No evidence of failure. No evidence of lobar consolidation ACT 112: Negative or not required by law. Electronically signed by: David Cummings M.D. 03/08/2020 5:38 PM
[2020-03-08] MEDS: ATORVASTATIN 40 MG TAB PO SCH (20:03)
[2020-03-08] MEDS: IRON POLYSACCHARIDE COMPLEX 150 MG CAPSULE PO SCH (20:04)
[2020-03-08] MEDS: POTASSIUM CHLORIDE 20 MEQ TABCR PO SCH (20:04)
[2020-03-08] MEDS ORDERED: Nursing to Pharmacy Communication SCH (20:30)
[2020-03-08] MEDS ORDERED: INSULIN ASPART 100 UNITS/ML 3 ML PEN SC SCH (21:00)
[2020-03-08] MEDS ORDERED: INSULIN GLARGINE SOLOSTAR 100 UNITS/ML 3 ML PEN SC SCH (21:00)
[2020-03-08 21:15] LABS: Hematocrit (blood only) 28.4 % (37-47); Hemoglobin 8.7 g/dL (12.0-16.0)
[2020-03-08] MEDS: COLESTIPOL HCL 1 GM TAB PO SCH (22:23)
[2020-03-08 23:00] LABS: Cdiff Antigen Positive
[2020-03-08 23:02] LABS: Cdiff Toxin A+B Positive Cdiff Toxin (Negative)
[2020-03-08] MEDS: INSULIN ASPART 100 UNITS/ML 3 ML PEN SC SCH (23:30)
[2020-03-08] MEDS: VANCOMYCIN HCL 125 MG/2.5ML SOLN PO SCH (23:52)
[2020-03-08] MEDS: RASPBERRY SYRUP 5 ML UDP PO SCH (23:52)
[2020-03-09 02:50] LABS: Hematocrit (blood only) 23.4 % (37-47); Hemoglobin 7.4 g/dL (12.0-16.0); Mean Corpuscular Hemoglobin 26.4 pg (25-34); Mean Corpuscular Hgb Conc 31.6 g/dL (32-36); Mean Corpuscular Volume 83.6 fL (80-100); Mean Platelet Volume 8.6 fL (7.4-10.4); Nucleated RBC # (auto) 0.09 K/uL (0-0); Nucleated RBC % (auto) 1.1 %; Platelet Count 357 K/uL (130-400); RDW Coefficient of Variation 16.1 % (11.5-14.5); RDW Standard Deviation 48.7 fL (36.4-46.3); White Blood Count 7.84 K/uL (4.8-10.8)
[2020-03-09 02:58] LABS: INR 1.4 (0.9-1.1); Prothrombin Time 14.3 Seconds (9.0-12.0)
[2020-03-09 03:09] LABS: BUN Creatinine Ratio 29.6 (10-20); Calcium 8.3 mg/dl (8.5-10.1); Creatinine Clr Calc Pharmacy 68.2 ml/min; Est GFR (African American) 82.2; Est GFR (Non-African American) 70.9; Potassium 4.2 mmol/L (3.5-5.1)
[2020-03-09 03:29] LABS: Troponin I 0.323 ng/ml (0-0.045)
[2020-03-09] MEDS: RASPBERRY SYRUP 5 ML UDP PO SCH ×4 (05:26→23:18)
[2020-03-09] MEDS: INSULIN ASPART 100 UNITS/ML 3 ML PEN SC SCH ×4 (05:26→23:17)
[2020-03-09] MEDS: VANCOMYCIN HCL 125 MG/2.5ML SOLN PO SCH ×4 (05:26→23:18)
[2020-03-09] MEDS: LEVOTHYROXINE SODIUM 75 MCG TABLET PO SCH (05:26)
[2020-03-09] MEDS ORDERED: SODIUM CHLORIDE 0.9% 250 ML IV PRN (07:25)
[2020-03-09] MEDS: BUDESONIDE EC 3 MG CAP PO SCH (08:20)
[2020-03-09] MEDS: LACTOBACILLUS ACIDOPHILUS (FLORANEX) TAB PO SCH ×3 (08:20→17:20)
[2020-03-09] MEDS: PANTOprazole 40 MG TAB PO SCH (08:20)
[2020-03-09] MEDS: ANASTROZOLE 1 MG TAB PO SCH (08:21)
[2020-03-09] MEDS: IRON POLYSACCHARIDE COMPLEX 150 MG CAPSULE PO SCH ×2 (08:21→20:02)
[2020-03-09] MEDS: POTASSIUM CHLORIDE 20 MEQ TABCR PO SCH ×2 (08:21→21:09)
[2020-03-09] MEDS: SERTRALINE HCL 50 MG TABLET PO SCH (08:21)
[2020-03-09] MEDS ORDERED: predniSONE 10 MG TABLET PO SCH (09:00)
--- NOTE | 2020-03-09 09:45 | Hospitalist Progress Note ---
Date of Service March 09, 2020 Assessment & Plan (1) Rectal bleeding: (2) Symptomatic anemia: (3) Crohns disease: Pt is 64 y/o M with PMH IBD initially thought UC, now suspected Crohn's, Insulin-dependent diabetes, hypothyroidism, hyperlipidemia, history of DVT and pulmonary s/p IVC filter on Coumadin, history recurrent C. diff, CKD III, breast CA presented to ER with complaint of bright red rectal bleeding today. chronic aching/cramping sensation to bilateral lower abdomen and denies any increased abdominal pain. Reports last couple days has noticed black-colored stools. 03/06/2020 had outpatient INR of 7.5 and Coumadin held past 2 days. On admission had 2 episodes of loose stools with bright red blood. On admission patient lightheaded with standing and noticed she was short of breath and had chest tightness with climbing stairs. In ER patient afebrile,P: 138 down to 95, RR: 20, BP 104/71 up to 120/63, 100% on room air. No leukocytosis, H/H: 01/30 (Hgb: 8.83 on 02/16), INR: 1.8 -In ER given 500 mL NSS bolus -Typed and crossed for 2 units PRBCs with 1 unit transfusing in ER -Repeat H&H every 6 hours. Transfuse additional PRBCs as needed -Gentle IVF -N.p.o. -Repeat hemoglobin last evening 8.7, this morning hemoglobin 7.4, will transfuse 1 unit of PRBC (03/09) GI consulted- conservative management for now, continue usual Prednisone Stool culture, C diff test -C. difficile toxin positive, patient was started on p.o. vancomycin overnight -Continue uceris -Hold Coumadin -GI consult, CHIEF OF PLANNING aware and suggests stool studies and C. difficile -CBC, BMP, continue to monitor (4) Elevated troponin: Troponin: 0.4. EKG sinus rhythm without acute changes compared to prior EKG. Patient reports today shortness of breath and chest tightness with climbing stairs only. At rest patient is denying any shortness of breath. And denies any current chest tightness -Elevated troponin likely secondary to demand -Trend troponin, troponin peaked at 0.6 -EKG normalized this morning 03/09 -Patient states that now she feels much better, denies any chest pain or shortness of (5) History of pulmonary embolus (PE): History of DVT/PE. S/p IVC filter. On Coumadin 03/06/2020 outpatient INR: 7.5, Coumadin has been on hold since. -INR in ER 1.8, now down to 1.4 -Continue to hold Coumadin secondary to rectal bleeding -Monitor INR (6) Diabetes: A1c: 8.9 on 01/2020 -We will decrease patient's home Lantus since patient is currently n.p.o. -NovoLog sliding scale per protocol -Monitor BSG (7) CKD (chronic kidney disease), stage III: Cr: 1.1. Baseline ~1.0 -Monitor renal functions -Avoid nephrotoxic agents when possible (8) Hypothyroidism: -Continue levothyroxine (9) Depression: -Continue sertraline DVT Prophylaxis -SCDs for now Full Code as per discussion with pt Follows with Dr Templeton for routine care Admission and Anticipated Discharge Date Admission Date: March 08, 2020 Subjective Hemoglobin 7.4 this morning, 1 unit of PRBCs ordered. Overnight C. 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 vancomycin started. Patient received transfusion this morning now she says that she feels so much better than yesterday. She currently denies any fevers, chills, chest pain, shortness of breath. She had one brown stool overnight. She has chronic lower abdominal mild discomfort, says that is unchanged right now. Review of Systems Review of Systems: All systems reviewed & are unremarkable except as noted in HPI & below Constitutional: no fever and no chills Respiratory: no cough and no dyspnea Cardiovascular: no chest pain and no palpitations Gastrointestinal: no abdominal pain, no nausea and no vomiting Physical Exam Physical Exam: General: Elderly pleasant female, lying in bed, in no distress, WDWN Head: normocephalic, atraumatic Eyes: PERRL, EOM's intact, conjunctiva non-injected, anicteric ENT: normal inspection external ears, nose, mucous membranes moist Neck: supple, trachea midline Lungs: clear, no respiratory distress, no wheezing/rhonchi/rales CV: RRR, no murmur, no pretibial edema Abd: normal BS, soft, mild tenderness to palpation bilateral lower abdomen without rebound or guarding Ext: no cyanosis, no calf tenderness Neuro/ Psych: A&O x 3, no facial asymmetry, speech fluent, moves all 4 extremities spontaneously and without difficulty, answering questions appropriately, normal affect Skin: warm, dry Results & Data Results & Data ([facility]) Vital Signs (Past 12 Hours) Vital Signs Temp Pulse Pulse Resp BP BP Pulse Ox 03/09/20 09:00 37 C 76 20 126/71 100 03/09/20 08:30 37 C 74 20 121/96 100 03/09/20 08:15 37.1 C 72 20 122/67 100 03/09/20 08:00 76 03/09/20 07:58 36.9 C 80 16 134/86 99 03/09/20 07:38 36.9 C 84 18 91/60 L 98 03/09/20 03:46 36.9 C 89 17 116/54 L 98 03/08/20 23:47 84 03/08/20 23:26 37.3 C 83 18 94/61 L 98 03/08/20 22:20 90 Pulse Ox 03/09/20 09:00 03/09/20 08:30 03/09/20 08:15 03/09/20 08:00 96 03/09/20 07:58 03/09/20 07:38 03/09/20 03:46 03/08/20 23:47 03/08/20 23:26 03/08/20 22:20 Laboratory Results 03/09/20 03/09/20 03/09/20 Range/Units 05:24 02:35 02:35 WBC (4.8-10.8) K/uL RBC (4.2-5.4) M/uL Hgb (12.0-16.0) g/dL Hct (37-47) % MCV (80-100) fL MCH (25-34) pg MCHC (32-36) g/dL RDW Std Deviation (36.4-46.3) fL RDW Coeff of Conchis (11.5-14.5) % Plt Count (130-400) K/uL MPV (7.4-10.4) fL Absolute Nucleated RBC (0-0) K/uL Nucleated RBC % (auto) % PT 14.3 H (9.0-12.0) Seconds INR 1.4 H (0.9-1.1) APTT (21.0-31.0) Seconds PTT Ratio Sodium 138 (136-145) mmol/L Potassium 4.2 (3.5-5.1) mmol/L Chloride 110 H (98-107) mmol/L Carbon Dioxide 23 (21-32) mmol/L Anion Gap 5.0 (3-11) BUN 25 H (7-18) mg/dl Creatinine 0.86 (0.6-1.2) mg/dl Est Cr Clr Drug Dosing 68.2 ml/min Est GFR ( Amer) 82.2 Est GFR (Non-Af Amer) 70.9 BUN/Creatinine Ratio 29.6 H (10-20) Glucose 112 H (70-99) mg/dl POC Glucose 121 H (70-99) mg/dl Calcium 8.3 L (8.5-10.1) mg/dl Magnesium (1.8-2.4) mg/dl Total Bilirubin (0.2-1) mg/dl AST (15-37) U/L ALT (12-78) U/L Alkaline Phosphatase (45-117) U/L Troponin I 0.323 H* (0-0.045) ng/ml Total Protein (6.4-8.2) gm/dl Albumin (3.4-5.0) gm/dl Globulin (2.5-4.0) gm/dl Albumin/Globulin Ratio (0.9-2) Stl C. diff Tox B Gene (Neg) Stl C.difficile Tox A&B (Negative) Blood Type Antibody Screen Crossmatch 03/09/20 03/08/20 03/08/20 Range/Units 02:35 23:29 20:59 WBC 7.84 (4.8-10.8) K/uL RBC 2.80 L (4.2-5.4) M/uL Hgb 7.4 L (12.0-16.0) g/dL Hct 23.4 L (37-47) % MCV 83.6 (80-100) fL MCH 26.4 (25-34) pg MCHC 31.6 L (32-36) g/dL RDW Std Deviation 48.7 H (36.4-46.3) fL RDW Coeff of Conchis 16.1 H (11.5-14.5) % Plt Count 357 (130-400) K/uL MPV 8.6 (7.4-10.4) fL Absolute Nucleated RBC 0.09 H (0-0) K/uL Nucleated RBC % (auto) 1.1 % PT (9.0-12.0) Seconds INR (0.9-1.1) APTT (21.0-31.0) Seconds PTT Ratio Sodium (136-145) mmol/L Potassium (3.5-5.1) mmol/L Chloride (98-107) mmol/L Carbon Dioxide (21-32) mmol/L Anion Gap (3-11) BUN (7-18) mg/dl Creatinine (0.6-1.2) mg/dl Est Cr Clr Drug Dosing ml/min Est GFR ( Amer) Est GFR (Non-Af Amer) BUN/Creatinine Ratio (10-20) Glucose (70-99) mg/dl POC Glucose 129 H (70-99) mg/dl Calcium (8.5-10.1) mg/dl Magnesium (1.8-2.4) mg/dl Total Bilirubin (0.2-1) mg/dl AST (15-37) U/L ALT (12-78) U/L Alkaline Phosphatase (45-117) U/L Troponin I 0.628 H* (0-0.045) ng/ml Total Protein (6.4-8.2) gm/dl Albumin (3.4-5.0) gm/dl Globulin (2.5-4.0) gm/dl Albumin/Globulin Ratio (0.9-2) Stl C. diff Tox B Gene (Neg) Stl C.difficile Tox A&B (Negative) Blood Type Antibody Screen Crossmatch 03/08/20 03/08/20 03/08/20 Range/Units 20:59 20:46 20:09 WBC (4.8-10.8) K/uL RBC (4.2-5.4) M/uL Hgb 8.7 L (12.0-16.0) g/dL Hct 28.4 L (37-47) % MCV (80-100) fL MCH (25-34) pg MCHC (32-36) g/dL RDW Std Deviation (36.4-46.3) fL RDW Coeff of Conchis (11.5-14.5) % Plt Count (130-400) K/uL MPV (7.4-10.4) fL Absolute Nucleated RBC (0-0) K/uL Nucleated RBC % (auto) % PT (9.0-12.0) Seconds INR (0.9-1.1) APTT (21.0-31.0) Seconds PTT Ratio Sodium (136-145) mmol/L Potassium (3.5-5.1) mmol/L Chloride (98-107) mmol/L Carbon Dioxide (21-32) mmol/L Anion Gap (3-11) BUN (7-18) mg/dl Creatinine (0.6-1.2) mg/dl Est Cr Clr Drug Dosing ml/min Est GFR ( Amer) Est GFR (Non-Af Amer) BUN/Creatinine Ratio (10-20) Glucose (70-99) mg/dl POC Glucose 153 H (70-99) mg/dl Calcium (8.5-10.1) mg/dl Magnesium (1.8-2.4) mg/dl Total Bilirubin (0.2-1) mg/dl AST (15-37) U/L ALT (12-78) U/L Alkaline Phosphatase (45-117) U/L Troponin I (0-0.045) ng/ml Total Protein (6.4-8.2) gm/dl Albumin (3.4-5.0) gm/dl Globulin (2.5-4.0) gm/dl Albumin/Globulin Ratio (0.9-2) Stl C. diff Tox B Gene Positive Cdiff Gene H (Neg) Stl C.difficile Tox A&B Positive Cdiff Toxin A* (Negative) Blood Type Antibody Screen Crossmatch 03/08/20 03/08/20 03/08/20 Range/Units 18:15 13:53 13:53 WBC (4.8-10.8) K/uL RBC (4.2-5.4) M/uL Hgb (12.0-16.0) g/dL Hct (37-47) % MCV (80-100) fL MCH (25-34) pg MCHC (32-36) g/dL RDW Std Deviation (36.4-46.3) fL RDW Coeff of Conchis (11.5-14.5) % Plt Count (130-400) K/uL MPV (7.4-10.4) fL Absolute Nucleated RBC (0-0) K/uL Nucleated RBC % (auto) % PT 18.0 H (9.0-12.0) Seconds INR 1.8 H (0.9-1.1) APTT 33.4 H (21.0-31.0) Seconds PTT Ratio 1.2 Sodium 135 L (136-145) mmol/L Potassium 3.9 (3.5-5.1) mmol/L Chloride 104 (98-107) mmol/L Carbon Dioxide 23 (21-32) mmol/L Anion Gap 8.0 (3-11) BUN 29 H (7-18) mg/dl Creatinine 1.13 (0.6-1.2) mg/dl Est Cr Clr Drug Dosing 40.0 ml/min Est GFR ( Amer) 59.1 Est GFR (Non-Af Amer) 51.0 BUN/Creatinine Ratio 26.1 H (10-20) Glucose 219 H (70-99) mg/dl POC Glucose 158 H (70-99) mg/dl Calcium 8.8 (8.5-10.1) mg/dl Magnesium 2.2 (1.8-2.4) mg/dl Total Bilirubin 0.3 (0.2-1) mg/dl AST 8 L (15-37) U/L ALT 9 L (12-78) U/L Alkaline Phosphatase 90 (45-117) U/L Troponin I 0.488 H* (0-0.045) ng/ml Total Protein 6.5 (6.4-8.2) gm/dl Albumin 2.4 L (3.4-5.0) gm/dl Globulin 4.1 H (2.5-4.0) gm/dl Albumin/Globulin Ratio 0.6 L (0.9-2) Stl C. diff Tox B Gene (Neg) Stl C.difficile Tox A&B (Negative) Blood Type Antibody Screen Crossmatch 03/08/20 03/08/20 Range/Units 13:53 13:53 WBC 10.28 (4.8-10.8) K/uL RBC 2.69 L (4.2-5.4) M/uL Hgb 7.0 L (12.0-16.0) g/dL Hct 22.9 L (37-47) % MCV 85.1 (80-100) fL MCH 26.0 (25-34) pg MCHC 30.6 L (32-36) g/dL RDW Std Deviation 51.5 H (36.4-46.3) fL RDW Coeff of Conchis 16.7 H (11.5-14.5) % Plt Count 477 H (130-400) K/uL MPV 9.0 (7.4-10.4) fL Absolute Nucleated RBC 0.10 H (0-0) K/uL Nucleated RBC % (auto) 1.0 % PT (9.0-12.0) Seconds INR (0.9-1.1) APTT (21.0-31.0) Seconds PTT Ratio Sodium (136-145) mmol/L Potassium (3.5-5.1) mmol/L Chloride (98-107) mmol/L Carbon Dioxide (21-32) mmol/L Anion Gap (3-11) BUN (7-18) mg/dl Creatinine (0.6-1.2) mg/dl Est Cr Clr Drug Dosing ml/min Est GFR ( Amer) Est GFR (Non-Af Amer) BUN/Creatinine Ratio (10-20) Glucose (70-99) mg/dl POC Glucose (70-99) mg/dl Calcium (8.5-10.1) mg/dl Magnesium (1.8-2.4) mg/dl Total Bilirubin (0.2-1) mg/dl AST (15-37) U/L ALT (12-78) U/L Alkaline Phosphatase (45-117) U/L Troponin I (0-0.045) ng/ml Total Protein (6.4-8.2) gm/dl Albumin (3.4-5.0) gm/dl Globulin (2.5-4.0) gm/dl Albumin/Globulin Ratio (0.9-2) Stl C. diff Tox B Gene (Neg) Stl C.difficile Tox A&B (Negative) Blood Type AB Negative Antibody Screen NEGATIVE Crossmatch See Detail (1) Crohns disease Gastrointestinal tract location: unspecified location Digestive disease complication type: unspecified complication Qualified Code(s): K50.919 - Crohn's disease, unspecified, with unspecified complications (2) Hypothyroidism Hypothyroidism type: unspecified Qualified Code(s): E03.9 - Hypothyroidism, unspecified
[2020-03-09] MEDS: COLESTIPOL HCL 1 GM TAB PO SCH ×3 (11:46→20:02)
[2020-03-09 12:16] LABS: Hematocrit (blood only) 30.2 % (37-47); Hemoglobin 9.6 g/dL (12.0-16.0)
--- NOTE | 2020-03-09 13:11 | Electrocardiogram Report ---
Test Reason : Blood Pressure : / mmHG Vent. Rate : 078 BPM Atrial Rate : 078 BPM P-R Int : 128 ms QRS Dur : 070 ms QT Int : 362 ms P-R-T Axes : 000 -09 024 degrees QTc Int : 412 ms Normal sinus rhythm with sinus arrhythmia Inferior infarct (cited on or before 31-JAN-2020) Abnormal ECG When compared with ECG of 08-MAR-2020 13:51, No significant change was found Confirmed by Sp Stinson ([id number]) on 03/09/2020 1:11:37 PM Referred By: Isaias Templeton Confirmed By:Sp Stinson
--- NOTE | 2020-03-09 13:24 | Electrocardiogram Report ---
Test Reason : Blood Pressure : / mmHG Vent. Rate : 076 BPM Atrial Rate : 076 BPM P-R Int : 142 ms QRS Dur : 072 ms QT Int : 376 ms P-R-T Axes : 073 021 073 degrees QTc Int : 423 ms Normal sinus rhythm with sinus arrhythmia Normal ECG When compared with ECG of 09-MAR-2020 00:18, (unconfirmed) Criteria for Inferior infarct are no longer Present Confirmed by Sp Stinson ([id number]) on 03/09/2020 1:24:07 PM Referred By: Isaias Templeton Confirmed By:Sp Stinson
[2020-03-09 15:15] LABS: Hematocrit (blood only) 30.4 % (37-47); Hemoglobin 9.6 g/dL (12.0-16.0)
[2020-03-09] MEDS: ATORVASTATIN 40 MG TAB PO SCH (20:02)
[2020-03-09 21:10] LABS: Hematocrit (blood only) 28.6 % (37-47); Hemoglobin 8.9 g/dL (12.0-16.0)
--- NOTE | 2020-03-09 22:07 | Consultation Report ---
DATE OF CONSULTATION: 03/09/2020 GASTROENTEROLOGY CONSULTATION REFERRED BY: Dr. Alvarez. REASON FOR CONSULTATION: I was asked to consult on this woman by Dr. Alvarez for evaluation of rectal bleeding. HISTORY OF PRESENT ILLNESS: The patient is a 64-year-old with a history of inflammatory bowel disease. She presents with rectal bleeding and she had a similar presentation in the beginning of this month. She has a history of recurrent DVT and pulmonary emboli and is on Coumadin. On 03/06/2020, she had an outpatient INR of 7.5. She has held her Coumadin since and has had 2 episodes of bright red rectal bleeding. This was a similar presentation as in the beginning of the month. She had a colonoscopy in 01/2020 showing inflammatory bowel disease. She is actively followed in GI as an outpatient. She also has a history of C. diff and during this hospitalization, she was found to be C. diff positive as well. She denies abdominal pain. Her rectal bleeding has improved. Her hemoglobin did drop from her typical hemoglobin, on presentation it was 7, after transfusion it is now 9.6. She denies any hematemesis. She denies any nausea, vomiting. PAST MEDICAL HISTORY: I reviewed her medical records and her past medical history and her past medical history is significant for what is already mentioned as well as history of breast cancer, coronary artery disease, chronic kidney disease, depression, diabetes, hypertension, hyperlipidemia. OUTPATIENT MEDICATIONS: Include calcium, levothyroxine, Lasix, Zoloft, anastrozole, atorvastatin, colestipol, Lantus, trazodone, iron replacement, budesonide, pantoprazole, dicyclomine and prednisone. ALLERGIES: SHE IS ALLERGIC TO AZTREONAM, DORZOLAMIDE, LATANOPROST, PENICILLIN, THIMEROSAL, TIMOLOL AND EMPAGLIFLOZIN. FAMILY HISTORY: She denies any family history of gastrointestinal disease. SOCIAL HISTORY: Not significant for active smoking or drinking. REVIEW OF SYSTEMS: As above; otherwise, she has had no recent change in vision or hearing. She has had no hair loss. She has had no productive cough. She denies any recent chest pain or shortness of breath on exertion. She denies any recent chest discomfort. She has had no easy bruising though she has had the rectal bleeding with an elevated INR. She denies any joint swelling, heat or cold intolerance. She has had no change in mood, change in gait. She denies any seizure history. PHYSICAL EXAMINATION: GENERAL: Reveals a pleasant woman, in no distress. VITAL SIGNS: Most recent vitals show blood pressure 121/69, pulse is 74, temperature is 37.1. SKIN: Anicteric. EYES: Show anicteric sclerae. MOUTH: Clear lesions with moist mucous membranes. NECK: Supple. CHEST: Clear. HEART: RRR ABDOMEN: Soft with good bowel sounds. There is no organomegaly, masses, rebound tenderness noted. EXTREMITIES: Warm with fair distal pulses. NEUROLOGIC: She is grossly intact and alert and oriented x3. LABORATORY DATA: Show a recent hemoglobin of 9.6, platelet count is 357,000. Most recent INR is 1.4. Liver enzymes were normal. C. diff was positive. IMPRESSION AND PLAN: A 64-year-old woman with rectal bleeding in the setting of over anticoagulation. I do not think endoscopy would add to her care. I would recommend tight control of her INR. Follow her hemoglobin and treat her C. diff as you are doing. As far as her inflammatory bowel disease is concerned, she should follow up with her regular provider, Dr. Mcintosh as an outpatient. JENNIFER
[2020-03-10] MEDS: INSULIN ASPART 100 UNITS/ML 3 ML PEN SC SCH ×4 (05:24→20:47)
[2020-03-10] MEDS: LEVOTHYROXINE SODIUM 75 MCG TABLET PO SCH (05:25)
[2020-03-10] MEDS: RASPBERRY SYRUP 5 ML UDP PO SCH ×3 (05:25→17:05)
[2020-03-10] MEDS: VANCOMYCIN HCL 125 MG/2.5ML SOLN PO SCH ×3 (05:25→17:05)
[2020-03-10 07:20] LABS: Hematocrit (blood only) 30.1 % (37-47); Hemoglobin 9.5 g/dL (12.0-16.0); Mean Corpuscular Hemoglobin 26.9 pg (25-34); Mean Corpuscular Hgb Conc 31.6 g/dL (32-36); Mean Corpuscular Volume 85.3 fL (80-100); Mean Platelet Volume 8.7 fL (7.4-10.4); Platelet Count 370 K/uL (130-400); RDW Coefficient of Variation 16.1 % (11.5-14.5); RDW Standard Deviation 49.3 fL (36.4-46.3); Red Blood Count 3.53 M/uL (4.2-5.4)
[2020-03-10 07:30] LABS: INR 1.3 (0.9-1.1); Prothrombin Time 13.8 Seconds (9.0-12.0)
[2020-03-10 07:48] LABS: Calcium 8.9 mg/dl (8.5-10.1); Creatinine Clr Calc Pharmacy 66.6 ml/min; Est GFR (Non-African American) 69.9; Potassium 4.7 mmol/L (3.5-5.1)
--- NOTE | 2020-03-10 08:08 | Hospitalist Progress Note ---
Date of Service March 10, 2020 Assessment & Plan (1) Rectal bleeding: (2) Symptomatic anemia: (3) Crohns disease: Pt is 64 y/o M with PMH IBD initially thought UC, now suspected Crohn's, Insulin-dependent diabetes, hypothyroidism, hyperlipidemia, history of DVT and pulmonary s/p IVC filter on Coumadin, history recurrent C. diff, CKD III, breast CA presented to ER with complaint of bright red rectal bleeding today. chronic aching/cramping sensation to bilateral lower abdomen and denies any increased abdominal pain. Reports last couple days has noticed black-colored stools. 03/06/2020 had outpatient INR of 7.5 and Coumadin held past 2 days. On admission had 2 episodes of loose stools with bright red blood. On admission patient lightheaded with standing and noticed she was short of breath and had chest tightness with climbing stairs. In ER patient afebrile,P: 138 down to 95, RR: 20, BP 104/71 up to 120/63, 100% on room air. No leukocytosis, H/H: 01/30 (Hgb: 8.83 on 02/16), INR: 1.8 -In ER given 500 mL NSS bolus -Typed and crossed for 2 units PRBCs with 1 unit transfusing in ER -Repeat H&H every 6 hours. Transfuse additional PRBCs as needed -Gentle IVF -N.p.o. -Repeat hemoglobin last evening 8.7, this morning hemoglobin 7.4, will transfuse 1 unit of PRBC (03/09) GI consulted- conservative management for now, continue usual Prednisone Stool culture, C diff test -C. difficile toxin positive, patient was started on p.o. vancomycin -Continue uceris -Held Coumadin on admission, INR is now down, hemoglobin stable, plan to reintroduce warfarin slowly -CBC, BMP, continue to monitor (4) Elevated troponin: Troponin: 0.4. EKG sinus rhythm without acute changes compared to prior EKG. Patient reports today shortness of breath and chest tightness with climbing stairs only. At rest patient is denying any shortness of breath. And denies any current chest tightness -Elevated troponin likely secondary to demand -Trend troponin, troponin peaked at 0.6 -EKG normalized in the morning 03/09 -Patient states that now she feels much better, denies any chest pain or shortness of (5) History of pulmonary embolus (PE): History of DVT/PE. S/p IVC filter. On Coumadin 03/06/2020 outpatient INR: 7.5, Coumadin has been on hold since. -INR in ER 1.8, now down to 1.3 -held Coumadin on admission secondary to rectal bleeding, plan to reintroduce slowly -Monitor INR (6) Diabetes: A1c: 8.9 on 01/2020 -decreased patient's home Lantus as patient n.p.o. on admission -NovoLog sliding scale per protocol -Monitor BSG (7) CKD (chronic kidney disease), stage III: Cr: 1.1. Baseline ~1.0 -Monitor renal functions -Avoid nephrotoxic agents when possible (8) Hypothyroidism: -Continue levothyroxine (9) Depression: -Continue sertraline DVT Prophylaxis -SCDs for now Full Code as per discussion with pt Follows with Dr Templeton for routine care Admission and Anticipated Discharge Date Admission Date: March 08, 2020 Subjective Patient is doing quite well, hemoglobin stable. She had 1 bowel movement overnight that still had visible residual blood however she says that had several bowel movements that only looked dark. She says that she feels much better now, denies any chest pain, shortness of breath, nausea or vomiting. She has some lower abdominal discomfort that she says is chronic. Discussed anticoagulation with her and agreed to start reintroducing warfarin slowly. Continue to monitor H&H. Review of Systems Review of Systems: All systems reviewed & are unremarkable except as noted in HPI & below Constitutional: no fever and no chills Respiratory: no cough and no dyspnea Cardiovascular: no chest pain and no palpitations Gastrointestinal: no abdominal pain, no nausea and no vomiting Physical Exam Physical Exam: General: Elderly pleasant female, lying in bed, in no distress, WDWN Head: normocephalic, atraumatic Eyes: PERRL, EOM's intact, conjunctiva non-injected, anicteric ENT: normal inspection external ears, nose, mucous membranes moist Neck: supple, trachea midline Lungs: clear, no respiratory distress, no wheezing/rhonchi/rales CV: RRR, no murmur, no pretibial edema Abd: normal BS, soft, mild tenderness to palpation bilateral lower abdomen without rebound or guarding Ext: no cyanosis, no calf tenderness Neuro/ Psych: A&O x 3, no facial asymmetry, speech fluent, moves all 4 extremities spontaneously and without difficulty, answering questions appropriately, normal affect Skin: warm, dry Results & Data Results & Data ([facility]) Vital Signs (Past 12 Hours) Vital Signs Temp Pulse Pulse Resp BP Pulse Ox 03/10/20 07:00 36.8 C 78 18 120/63 99 03/10/20 03:18 36.7 C 68 17 105/60 98 03/09/20 23:13 36.9 C 66 17 127/66 99 03/09/20 22:53 70 Laboratory Results 03/10/20 03/10/20 03/10/20 Range/Units 06:39 06:39 06:39 WBC 8.30 (4.8-10.8) K/uL RBC 3.53 L (4.2-5.4) M/uL Hgb 9.5 L (12.0-16.0) g/dL Hct 30.1 L (37-47) % MCV 85.3 (80-100) fL MCH 26.9 (25-34) pg MCHC 31.6 L (32-36) g/dL RDW Std Deviation 49.3 H (36.4-46.3) fL RDW Coeff of Conchis 16.1 H (11.5-14.5) % Plt Count 370 (130-400) K/uL MPV 8.7 (7.4-10.4) fL PT 13.8 H (9.0-12.0) Seconds INR 1.3 H (0.9-1.1) Sodium 139 (136-145) mmol/L Potassium 4.7 (3.5-5.1) mmol/L Chloride 108 H (98-107) mmol/L Carbon Dioxide 24 (21-32) mmol/L Anion Gap 7.0 (3-11) BUN 17 (7-18) mg/dl Creatinine 0.87 (0.6-1.2) mg/dl Est Cr Clr Drug Dosing 66.6 ml/min Est GFR ( Amer) 81.0 Est GFR (Non-Af Amer) 69.9 BUN/Creatinine Ratio 20.0 (10-20) Glucose 82 (70-99) mg/dl POC Glucose (70-99) mg/dl Calcium 8.9 (8.5-10.1) mg/dl Blood Type Antibody Screen Crossmatch 03/10/20 03/09/20 03/09/20 Range/Units 05:22 23:16 20:54 WBC (4.8-10.8) K/uL RBC (4.2-5.4) M/uL Hgb 8.9 L (12.0-16.0) g/dL Hct 28.6 L (37-47) % MCV (80-100) fL MCH (25-34) pg MCHC (32-36) g/dL RDW Std Deviation (36.4-46.3) fL RDW Coeff of Conchis (11.5-14.5) % Plt Count (130-400) K/uL MPV (7.4-10.4) fL PT (9.0-12.0) Seconds INR (0.9-1.1) Sodium (136-145) mmol/L Potassium (3.5-5.1) mmol/L Chloride (98-107) mmol/L Carbon Dioxide (21-32) mmol/L Anion Gap (3-11) BUN (7-18) mg/dl Creatinine (0.6-1.2) mg/dl Est Cr Clr Drug Dosing ml/min Est GFR ( Amer) Est GFR (Non-Af Amer) BUN/Creatinine Ratio (10-20) Glucose (70-99) mg/dl POC Glucose 91 79 (70-99) mg/dl Calcium (8.5-10.1) mg/dl Blood Type Antibody Screen Crossmatch 03/09/20 03/09/20 03/09/20 Range/Units 17:48 15:04 11:55 WBC (4.8-10.8) K/uL RBC (4.2-5.4) M/uL Hgb 9.6 L 9.6 L (12.0-16.0) g/dL Hct 30.4 L 30.2 L (37-47) % MCV (80-100) fL MCH (25-34) pg MCHC (32-36) g/dL RDW Std Deviation (36.4-46.3) fL RDW Coeff of Conchis (11.5-14.5) % Plt Count (130-400) K/uL MPV (7.4-10.4) fL PT (9.0-12.0) Seconds INR (0.9-1.1) Sodium (136-145) mmol/L Potassium (3.5-5.1) mmol/L Chloride (98-107) mmol/L Carbon Dioxide (21-32) mmol/L Anion Gap (3-11) BUN (7-18) mg/dl Creatinine (0.6-1.2) mg/dl Est Cr Clr Drug Dosing ml/min Est GFR ( Amer) Est GFR (Non-Af Amer) BUN/Creatinine Ratio (10-20) Glucose (70-99) mg/dl POC Glucose 147 H (70-99) mg/dl Calcium (8.5-10.1) mg/dl Blood Type Antibody Screen Crossmatch 03/09/20 03/08/20 Range/Units 11:48 13:53 WBC (4.8-10.8) K/uL RBC (4.2-5.4) M/uL Hgb (12.0-16.0) g/dL Hct (37-47) % MCV (80-100) fL MCH (25-34) pg MCHC (32-36) g/dL RDW Std Deviation (36.4-46.3) fL RDW Coeff of Conchis (11.5-14.5) % Plt Count (130-400) K/uL MPV (7.4-10.4) fL PT (9.0-12.0) Seconds INR (0.9-1.1) Sodium (136-145) mmol/L Potassium (3.5-5.1) mmol/L Chloride (98-107) mmol/L Carbon Dioxide (21-32) mmol/L Anion Gap (3-11) BUN (7-18) mg/dl Creatinine (0.6-1.2) mg/dl Est Cr Clr Drug Dosing ml/min Est GFR ( Amer) Est GFR (Non-Af Amer) BUN/Creatinine Ratio (10-20) Glucose (70-99) mg/dl POC Glucose 140 H (70-99) mg/dl Calcium (8.5-10.1) mg/dl Blood Type AB Negative Antibody Screen NEGATIVE Crossmatch See Detail Medications Administered Current Inpatient Medications Acetaminophen (Acetaminophen 325 Mg Tab) 650 mg PO Q4H PRN PRN Reason: Pain or Fever Stop: 04/07/20 17:31 Anastrozole (Anastrozole 1 Mg Tab) 1 mg PO QAM [facility] Stop: 04/08/20 08:59 Last Admin: 03/09/20 08:21 Dose: 1 mg Documented by: Atorvastatin Calcium (Atorvastatin 40 Mg Tab) 40 mg PO HS [facility] Stop: 04/07/20 20:59 Last Admin: 03/09/20 20:02 Dose: 40 mg Documented by: Budesonide (Budesonide Ec 3 Mg Cap) 9 mg PO QAM [facility] Stop: 04/08/20 08:59 Last Admin: 03/09/20 08:20 Dose: 9 mg Documented by: Colestipol HCl (Colestipol Hcl 1 Gm Tab) 1 gm PO TID@1000,1500,2200 [facility] Stop: 04/07/20 21:59 Last Admin: 03/09/20 20:02 Dose: 1 gm Documented by: Dextrose (Dextrose 50% 50 Ml Syringe) 25 - 50 ml IV UD PRN; Protocol PRN Reason: Hypoglycemia Protocol Stop: 04/07/20 17:31 Dicyclomine HCl (Dicyclomine Hcl 10 Mg Cap) 10 mg PO BID PRN PRN Reason: abdominal cramping Stop: 04/07/20 17:31 Glucagon (Glucagon For Inj 1 Mg Vial) 1 mg SQ UD PRN; Protocol PRN Reason: Hypoglycemia Protocol Stop: 04/07/20 17:31 Glucose (Glucose 10 Tabs/Tube) 4 - 8 tabs PO UD PRN; Protocol PRN Reason: Hypoglycemia Protocol Stop: 04/07/20 17:31 Glucose (Glucose 40% Gel 15 Gm Tube) 15 - 30 gm PO UD PRN; Protocol PRN Reason: Hypoglycemia Protocol Stop: 04/07/20 17:31 Insulin Aspart (Insulin Aspart 100 Units/Ml 3 Ml Pen) 0 units SC Q6 [facility] Stop: 04/08/20 00:00 Last Admin: 03/10/20 05:24 Dose: Not Given Documented by: Insulin Glargine (Insulin Glargine Solostar 100 Units/Ml 3 Ml Pen) 6 units SC BID [facility] Stop: 04/07/20 20:59 Last Admin: 03/08/20 20:20 Dose: Not Given Documented by: Lactobacillus Acidophilus (Lactobacillus Acidophilus (Floranex) Tab) 4 tab PO TIDM [facility] Stop: 04/08/20 07:59 Last Admin: 03/09/20 17:20 Dose: 4 tab Documented by: Levothyroxine Sodium (Levothyroxine Sodium 75 Mcg Tablet) 75 mcg PO DAILYBB [facility] Stop: 04/08/20 06:29 Last Admin: 03/10/20 05:25 Dose: 75 mcg Documented by: Miscellaneous (Carbohydrates For Hypoglycemia ) 15 - 30 gm PO UD PRN PRN Reason: Hypoglycemia Protocol Stop: 04/07/20 17:31 Pantoprazole Sodium (Pantoprazole 40 Mg Tab) 40 mg PO QAM [facility] Stop: 04/08/20 08:59 Last Admin: 03/09/20 08:20 Dose: 40 mg Documented by: Polysaccharide Iron Complex (Iron Polysaccharide Complex 150 Mg Capsule) 150 mg PO BID [facility] Stop: 04/07/20 20:59 Last Admin: 03/09/20 20:02 Dose: 150 mg Documented by: Potassium Chloride (Potassium Chloride 20 Meq Tabcr) 20 meq PO BID [facility] Stop: 04/07/20 20:59 Last Admin: 03/09/20 21:09 Dose: 20 meq Documented by: Prednisone (Prednisone 5 Mg Tab) 5 mg PO DAILY [facility] Stop: 03/12/20 09:01 Raspberry (Raspberry Syrup 5 Ml Udp) 5 ml PO Q6 [facility]; Taper Stop: 04/29/20 23:59 Last Admin: 03/10/20 05:25 Dose: 5 ml Documented by: Sertraline HCl (Sertraline Hcl 50 Mg Tablet) 50 mg PO QAM [facility] Stop: 04/08/20 08:59 Last Admin: 03/09/20 08:21 Dose: 50 mg Documented by: Trazodone HCl (Trazodone Hcl 50 Mg Tab) 50 mg PO HS PRN PRN Reason: Sleep Stop: 04/07/20 17:31 Triamcinolone Acetonide (Triamcinolone Acet 0.1% Cr 15 Gm Tube) 1 appln TOP BID PRN PRN Reason: Rash Stop: 04/07/20 17:31 Vancomycin HCl (Vancomycin Hcl 125 Mg/2.5ml Soln) 125 mg PO Q6 [facility]; Taper; Protocol Stop: 04/29/20 23:59 Last Admin: 03/10/20 05:25 Dose: 125 mg Documented by: (1) Crohns disease Gastrointestinal tract location: unspecified location Digestive disease complication type: unspecified complication Qualified Code(s): K50.919 - Crohn's disease, unspecified, with unspecified complications (2) Hypothyroidism Hypothyroidism type: unspecified Qualified Code(s): E03.9 - Hypothyroidism, unspecified
[2020-03-10] MEDS: IRON POLYSACCHARIDE COMPLEX 150 MG CAPSULE PO SCH ×2 (08:51→20:21)
[2020-03-10] MEDS: BUDESONIDE EC 3 MG CAP PO SCH (08:51)
[2020-03-10] MEDS: predniSONE 5 MG TAB PO SCH (08:51)
[2020-03-10] MEDS: ANASTROZOLE 1 MG TAB PO SCH (08:51)
[2020-03-10] MEDS: LACTOBACILLUS ACIDOPHILUS (FLORANEX) TAB PO SCH ×3 (08:51→16:57)
[2020-03-10] MEDS: SERTRALINE HCL 50 MG TABLET PO SCH (08:51)
[2020-03-10] MEDS: COLESTIPOL HCL 1 GM TAB PO SCH ×3 (08:52→20:21)
[2020-03-10] MEDS: PANTOprazole 40 MG TAB PO SCH (08:52)
[2020-03-10] MEDS: POTASSIUM CHLORIDE 20 MEQ TABCR PO SCH ×2 (09:43→20:21)
[2020-03-10] MEDS ORDERED: WARFARIN SOD 1 MG TAB PO SCH (16:00)
[2020-03-10] MEDS ORDERED: Nursing to Pharmacy Communication SCH (16:15)
[2020-03-10] MEDS: ATORVASTATIN 40 MG TAB PO SCH (20:21)
[2020-03-10 20:59] LABS: Hemoglobin 9.6 g/dL (12.0-16.0)
[2020-03-11] MEDS: VANCOMYCIN HCL 125 MG/2.5ML SOLN PO SCH ×3 (01:03→11:44)
[2020-03-11] MEDS: RASPBERRY SYRUP 5 ML UDP PO SCH ×3 (01:03→11:41)
[2020-03-11] MEDS: LEVOTHYROXINE SODIUM 75 MCG TABLET PO SCH (05:50)
[2020-03-11 06:02] LABS: Hematocrit (blood only) 30.6 % (37-47); Hemoglobin 9.6 g/dL (12.0-16.0); Mean Corpuscular Hgb Conc 31.4 g/dL (32-36); Mean Platelet Volume 8.9 fL (7.4-10.4); Platelet Count 393 K/uL (130-400); RDW Coefficient of Variation 16.1 % (11.5-14.5); RDW Standard Deviation 50.1 fL (36.4-46.3); Red Blood Count 3.56 M/uL (4.2-5.4); White Blood Count 9.74 K/uL (4.8-10.8)
[2020-03-11 06:38] LABS: BUN Creatinine Ratio 14.3 (10-20); Calcium 8.8 mg/dl (8.5-10.1); Creatinine Clr Calc Pharmacy 65.3 ml/min; Est GFR (African American) 79.9; Est GFR (Non-African American) 68.9; Potassium 4.1 mmol/L (3.5-5.1)
[2020-03-11] MEDS: INSULIN ASPART 100 UNITS/ML 3 ML PEN SC SCH ×2 (08:03→11:41)
[2020-03-11] MEDS: PANTOprazole 40 MG TAB PO SCH (08:04)
[2020-03-11] MEDS: IRON POLYSACCHARIDE COMPLEX 150 MG CAPSULE PO SCH (08:04)
[2020-03-11] MEDS: predniSONE 5 MG TAB PO SCH (08:05)
[2020-03-11] MEDS: BUDESONIDE EC 3 MG CAP PO SCH (08:05)
[2020-03-11] MEDS: ANASTROZOLE 1 MG TAB PO SCH (08:05)
[2020-03-11] MEDS: POTASSIUM CHLORIDE 20 MEQ TABCR PO SCH (08:05)
[2020-03-11] MEDS: SERTRALINE HCL 50 MG TABLET PO SCH (08:05)
[2020-03-11] MEDS: LACTOBACILLUS ACIDOPHILUS (FLORANEX) TAB PO SCH ×2 (08:05→11:42)
[2020-03-11] MEDS: COLESTIPOL HCL 1 GM TAB PO SCH (09:59)
--- NOTE | 2020-03-11 11:18 | Hospitalist Progress Note ---
Date of Service March 11, 2020 Assessment & Plan (1) Rectal bleeding: (2) Symptomatic anemia: (3) Crohns disease: Pt is 64 y/o M with PMH IBD initially thought UC, now suspected Crohn's, Insulin-dependent diabetes, hypothyroidism, hyperlipidemia, history of DVT and pulmonary s/p IVC filter on Coumadin, history recurrent C. diff, CKD III, breast CA presented to ER with complaint of bright red rectal bleeding today. chronic aching/cramping sensation to bilateral lower abdomen and denies any increased abdominal pain. Reports last couple days has noticed black-colored stools. 03/06/2020 had outpatient INR of 7.5 and Coumadin held past 2 days. On admission had 2 episodes of loose stools with bright red blood. On admission patient lightheaded with standing and noticed she was short of breath and had chest tightness with climbing stairs. Presented with low blood pressure and received intravenous fluid with normal saline in the emergency k[place] -Typed and crossed for 2 units PRBCs with 1 unit transfusing in ER GI consulted- conservative management for now, continue usual Prednisone Hemoglobin remains stable and did not have any more bleeding per rectum C. difficile colitis -C. difficile toxin positive, patient was started on p.o. vancomycin -Continue uceris -Finish the course of antibiotic with vancomycin (4) Elevated troponin: Troponin: 0.4. EKG sinus rhythm without acute changes compared to prior E KG. Has had shortness of breath likely secondary to anemia -Elevated troponin likely secondary to demand ischemia -Trend troponin, troponin peaked at 0.6 and trended down to 0.323 -EKG normalized in the morning 03/09 -Echo of the heart showed-EF of 60 to 65%, LV wall motion is normal, grade 1 diastolic dysfunction, RV systolic function is normal, LA size is normal. RA size is normal and no significant valvular pathology -No more cardiac symptoms (5) History of pulmonary embolus (PE): History of DVT/PE. S/p IVC filter. On Coumadin 03/06/2020 outpatient INR: 7.5, Coumadin has been on hold since. -INR in ER 1.8, now down to 1.3 -held Coumadin on admission secondary to rectal bleeding, plan to reintroduce slowly -INR is 1.3 yesterday -We will put her back on her usual doses of Coumadin as an outpatient and was advised to have frequent follow-up in the coagulation clinic to maintain INR between 2-3 (6) Diabetes: A1c: 8.9 on 01/2020 -decreased patient's home Lantus as patient n.p.o. on admission -NovoLog sliding scale per protocol -Monitor BSG (7) CKD (chronic kidney disease), stage III: Cr: 1.1. Baseline ~1.0 -Monitor renal functions -Avoid nephrotoxic agents when possible (8) Hypothyroidism: -Continue levothyroxine (9) Depression: -Continue sertraline DVT Prophylaxis -SCDs for now Full Code as per discussion with pt Follows with Dr Templeton for routine care Discharge this afternoon Admission and Anticipated Discharge Date Admission Date: March 08, 2020 Subjective 03/11/2020 The patient was seen and examined in telemetry unit She has been feeling a lot better today and denies any symptoms No more black tarry stool and no more bleeding per rectum Has been ambulating without any difficulty Review of Systems Review of Systems: All systems reviewed and are unremarkable except as noted below Respiratory: no cough and no dyspnea Cardiovascular: no chest pain and no palpitations Gastrointestinal: no abdominal pain, no constipation, no diarrhea/loose stools and no blood in stools Physical Exam Physical Exam: Lying in bed comfortably Constitutional: well developed and well nourished; no acute distress and not ill appearing Eyes: PERRL, conjunctivae normal, anicteric sclerae ENMT: external ear and nose normal, oropharynx normal Neck: trachea midline, no thyromegaly Respiratory: normal respiratory effort; no respiratory distress Auscultation: lungs clear to auscultation bilaterally Cardiovascular: Rate/Rhythm: regular rate and regular rhythm Heart Sounds: no murmur Gastrointestinal (Abdomen): Inspection/Auscultation: abdomen normal to inspection and normal bowel sounds; abdomen not distended Percussion/Palpation: abdomen soft; abdomen nontender Musculoskeletal: No acute arthritis involving any joints Neurologic: moves all extremities; no focal motor deficits Alert, awake and oriented x3 Lymphatic: no cervical or axillary lymphadenopathy Results & Data Results & Data ([facility]) Vital Signs (Past 12 Hours) Vital Signs Temp Pulse Pulse Resp BP Pulse Ox 03/11/20 08:00 72 03/11/20 07:23 37.0 C 93 H 19 117/62 89 L 03/11/20 03:22 37.0 C 71 17 130/64 97 03/11/20 00:26 72 03/10/20 23:16 36.9 C 80 18 107/65 98 Laboratory Results Short CBC 03/10/20 03/11/20 Range/Units 20:50 05:25 WBC 9.74 (4.8-10.8) K/uL Hgb 9.6 L 9.6 L (12.0-16.0) g/dL Hct 31.0 L 30.6 L (37-47) % Plt Count 393 (130-400) K/uL BMP 03/11/20 05:25 Sodium 138 Potassium 4.1 Chloride 108 H Carbon Dioxide 24 BUN 13 Creatinine 0.88 Glucose 95 Calcium 8.8 Medications Administered Current Inpatient Medications Acetaminophen (Acetaminophen 325 Mg Tab) 650 mg PO Q4H PRN PRN Reason: Pain or Fever Stop: 04/07/20 17:31 Anastrozole (Anastrozole 1 Mg Tab) 1 mg PO QAM [facility] Stop: 04/08/20 08:59 Last Admin: 03/11/20 08:05 Dose: 1 mg Documented by: Atorvastatin Calcium (Atorvastatin 40 Mg Tab) 40 mg PO HS [facility] Stop: 04/07/20 20:59 Last Admin: 03/10/20 20:21 Dose: 40 mg Documented by: Budesonide (Budesonide Ec 3 Mg Cap) 9 mg PO QAM [facility] Stop: 04/08/20 08:59 Last Admin: 03/11/20 08:05 Dose: 9 mg Documented by: Colestipol HCl (Colestipol Hcl 1 Gm Tab) 1 gm PO TID@1000,1500,2200 [facility] Stop: 04/07/20 21:59 Last Admin: 03/11/20 09:59 Dose: 1 gm Documented by: Dextrose (Dextrose 50% 50 Ml Syringe) 25 - 50 ml IV UD PRN; Protocol PRN Reason: Hypoglycemia Protocol Stop: 04/07/20 17:31 Dicyclomine HCl (Dicyclomine Hcl 10 Mg Cap) 10 mg PO BID PRN PRN Reason: abdominal cramping Stop: 04/07/20 17:31 Glucagon (Glucagon For Inj 1 Mg Vial) 1 mg SQ UD PRN; Protocol PRN Reason: Hypoglycemia Protocol Stop: 04/07/20 17:31 Glucose (Glucose 10 Tabs/Tube) 4 - 8 tabs PO UD PRN; Protocol PRN Reason: Hypoglycemia Protocol Stop: 04/07/20 17:31 Glucose (Glucose 40% Gel 15 Gm Tube) 15 - 30 gm PO UD PRN; Protocol PRN Reason: Hypoglycemia Protocol Stop: 04/07/20 17:31 Insulin Aspart (Insulin Aspart 100 Units/Ml 3 Ml Pen) 0 units SC ACHS [facility] Stop: 04/09/20 16:29 Last Admin: 03/11/20 08:03 Dose: 1 units Documented by: Insulin Glargine (Insulin Glargine Solostar 100 Units/Ml 3 Ml Pen) 6 units SC BID [facility] Stop: 04/07/20 20:59 Last Admin: 03/08/20 20:20 Dose: Not Given Documented by: Lactobacillus Acidophilus (Lactobacillus Acidophilus (Floranex) Tab) 4 tab PO TIDM [facility] Stop: 04/08/20 07:59 Last Admin: 03/11/20 08:05 Dose: 4 tab Documented by: Levothyroxine Sodium (Levothyroxine Sodium 75 Mcg Tablet) 75 mcg PO DAILYBB [facility] Stop: 04/08/20 06:29 Last Admin: 03/11/20 05:50 Dose: 75 mcg Documented by: Miscellaneous (Carbohydrates For Hypoglycemia ) 15 - 30 gm PO UD PRN PRN Reason: Hypoglycemia Protocol Stop: 04/07/20 17:31 Pantoprazole Sodium (Pantoprazole 40 Mg Tab) 40 mg PO QAM [facility] Stop: 04/08/20 08:59 Last Admin: 03/11/20 08:04 Dose: 40 mg Documented by: Polysaccharide Iron Complex (Iron Polysaccharide Complex 150 Mg Capsule) 150 mg PO BID [facility] Stop: 04/07/20 20:59 Last Admin: 03/11/20 08:04 Dose: 150 mg Documented by: Potassium Chloride (Potassium Chloride 20 Meq Tabcr) 20 meq PO BID [facility] Stop: 04/07/20 20:59 Last Admin: 03/11/20 08:05 Dose: 20 meq Documented by: Prednisone (Prednisone 5 Mg Tab) 5 mg PO DAILY [facility] Stop: 03/12/20 09:01 Last Admin: 03/11/20 08:05 Dose: 5 mg Documented by: Raspberry (Raspberry Syrup 5 Ml Udp) 5 ml PO Q6 [facility]; Taper Stop: 04/29/20 23:59 Last Admin: 03/11/20 05:50 Dose: 5 ml Documented by: Sertraline HCl (Sertraline Hcl 50 Mg Tablet) 50 mg PO QAM [facility] Stop: 04/08/20 08:59 Last Admin: 03/11/20 08:05 Dose: 50 mg Documented by: Trazodone HCl (Trazodone Hcl 50 Mg Tab) 50 mg PO HS PRN PRN Reason: Sleep Stop: 04/07/20 17:31 Triamcinolone Acetonide (Triamcinolone Acet 0.1% Cr 15 Gm Tube) 1 appln TOP BID PRN PRN Reason: Rash Stop: 04/07/20 17:31 Vancomycin HCl (Vancomycin Hcl 125 Mg/2.5ml Soln) 125 mg PO Q6 [facility]; Taper; Protocol Stop: 04/29/20 23:59 Last Admin: 03/11/20 05:50 Dose: 125 mg Documented by: Warfarin Sodium (Warfarin Sod 1 Mg Tab) 1 mg PO DAILY@1600 [facility] Stop: 04/09/20 15:59 Last Admin: 03/10/20 16:57 Dose: 1 mg Documented by: (1) Crohns disease Gastrointestinal tract location: unspecified location Digestive disease complication type: unspecified complication Qualified Code(s): K50.919 - Crohn's disease, unspecified, with unspecified complications (2) Hypothyroidism Hypothyroidism type: unspecified Qualified Code(s): E03.9 - Hypothyroidism, unspecified
--- NOTE | 2020-03-12 07:51 | Discharge Summary ---
Date of Service March 12, 2020 Admission HPI Per Admitting Provider Pt is 64 y/o M with PMH IBD initially thought UC, now suspected Crohn's, Insulin-dependent diabetes, hypothyroidism, hyperlipidemia, history of DVT and pulmonary s/p IVC filter on Coumadin, history recurrent C. diff, CKD III, breast CA presented to ER with complaint of bright red rectal bleeding today. Patient with several recent admissions for rectal bleeding past couple of months. Most recent admission 02/15/2020-02/17/2020 for rectal bleeding with supratherapeutic INR that was thought secondary to Augmentin. Upon discharge at that time hemoglobin was 8.3. Patient states was doing well. She reports chronic aching/cramping sensation to bilateral lower abdomen and denies any increased abdominal pain. Reports last couple days has noticed black-colored stools. 03/06/2020 had outpatient INR of 7.5. Coumadin has been held the past 2 days and had repeat outpatient INR of 2.2 today. Today had 2 episodes of loose stools with bright red blood. Today patient lightheaded with standing and noticed she was short of breath and had chest tightness with climbing stairs. Patient denies any current chest tightness or shortness of breath. She reports has heartburn at baseline. Patient denies syncope, palpitations. She seen by outpatient GI on 02/29/2020 and her prednisone is being tapered. Patient started 10 mg daily yesterday for 3 days then is to go to 5 mg daily for 3 days and discontinue. She is currently on Stelara and use you Uceris. Denies fever/chills, diaphoresis, N/V, SAPP, vision changes, neck pain, cough, sore throat, choking, otalgia, rhinorrhea, paresthesias, extremity weakness, extremity edema, rashes, urinary symptoms. Admission Exam Per Admitting Provider Physical Exam: General: no distress, WDWN Head: normocephalic, atraumatic Eyes: PERRL, EOM's intact, conjunctiva non-injected, anicteric ENT: normal inspection external ears, nose, mucous membranes moist Neck: supple, trachea midline Lungs: clear, no respiratory distress, no wheezing/rhonchi/rales CV: RRR, no murmur, no pretibial edema Abd: normal BS, soft, mild tenderness to palpation bilateral lower abdomen without rebound or guarding Ext: no cyanosis, no calf tenderness Neuro: A&O x 3, no focal deficits noted, normal affect Skin: warm, dry Principal Diagnosis Rectal bleeding-controlled, Crohn's disease, C. difficile colitis, history of pulmonary embolism Discharge Exam Constitutional well developed and well nourished; no acute distress and not ill appearing Eyes PERRL, conjunctivae normal, anicteric sclerae ENMT external ear and nose normal, oropharynx normal Neck trachea midline, no thyromegaly Respiratory normal respiratory effort; no respiratory distress Auscultation: lungs clear to auscultation bilaterally Cardiovascular Rate/Rhythm: regular rate and regular rhythm Heart Sounds: no murmur Gastrointestinal (Abdomen) Inspection/Auscultation: abdomen normal to inspection and normal bowel sounds; abdomen not distended Percussion/Palpation: abdomen soft; abdomen nontender Neurologic moves all extremities; no focal motor deficits Lymphatic no cervical or axillary lymphadenopathy Discharge Data Allergies Allergy/AdvReac Type Severity Reaction Status Date / Time aztreonam [From Azactam] Allergy Intermediate flushed Verified 03/08/20 15:26 /itching dorzolamide Allergy Unknown EYE LID Verified 03/08/20 15:26 SWELLING latanoprost Allergy Unknown EYE LID Verified 03/08/20 15:26 SWELLING Penicillins Allergy Unknown Rash Verified 03/08/20 15:26 thimerosal Allergy Unknown Unknown Verified 03/08/20 15:26 timolol Allergy Unknown EYE LID Verified 03/08/20 15:26 SWELLING empagliflozin AdvReac Severe Confusion Unverified 03/08/20 15:26 [From Jardiance] Consultations 03/08/20 15:22 ED Decision to Admit Stat 03/08/20 17:32 Consult Gastroenterology Routine Hospital Course (1) Rectal bleeding: (2) Symptomatic anemia: (3) Crohns disease: Pt is 64 y/o M with PMH IBD initially thought UC, now suspected Crohn's, Insulin-dependent diabetes, hypothyroidism, hyperlipidemia, history of DVT and pulmonary s/p IVC filter on Coumadin, history recurrent C. diff, CKD III, breast CA presented to ER with complaint of bright red rectal bleeding today. chronic aching/cramping sensation to bilateral lower abdomen and denies any increased abdominal pain. Reports last couple days has noticed black-colored stools. 03/06/2020 had outpatient INR of 7.5 and Coumadin held past 2 days. On admission had 2 episodes of loose stools with bright red blood. On admission patient lightheaded with standing and noticed she was short of breath and had chest tightness with climbing stairs. Presented with low blood pressure and received intravenous fluid with normal saline in the emergency kenyatta -Typed and crossed for 2 units PRBCs with 1 unit transfusing in ER GI consulted- conservative management for now, continue usual Prednisone Hemoglobin remains stable and did not have any more bleeding per rectum C. difficile colitis -C. difficile toxin positive, patient was started on p.o. vancomycin -Continue uceris -Finish the course of antibiotic with vancomycin (4) Elevated troponin: Troponin: 0.4. EKG sinus rhythm without acute changes compared to prior EKG. Has had shortness of breath likely secondary to anemia -Elevated troponin likely secondary to demand ischemia -Trend troponin, troponin peaked at 0.6 and trended down to 0.323 -EKG normalized in the morning 03/09 -Echo of the heart showed-EF of 60 to 65%, LV wall motion is normal, grade 1 diastolic dysfunction, RV systolic function is normal, LA size is normal. RA size is normal and no significant valvular pathology -No more cardiac symptoms (5) History of pulmonary embolus (PE): History of DVT/PE. S/p IVC filter. On Coumadin 03/06/2020 outpatient INR: 7.5, Coumadin has been on hold since. -INR in ER 1.8, now down to 1.3 -held Coumadin on admission secondary to rectal bleeding, plan to reintroduce slowly -INR is 1.3 yesterday -We will put her back on her usual doses of Coumadin as an outpatient and was advised to have frequent follow-up in the coagulation clinic to maintain INR between 2-3 (6) Diabetes: A1c: 8.9 on 01/2020 -decreased patient's home Lantus as patient n.p.o. on admission -NovoLog sliding scale per protocol -Monitor BSG (7) CKD (chronic kidney disease), stage III: Cr: 1.1. Baseline ~1.0 -Monitor renal functions -Avoid nephrotoxic agents when possible (8) Hypothyroidism: -Continue levothyroxine (9) Depression: -Continue sertraline DVT Prophylaxis -SCDs for now Full Code as per discussion with pt Follows with Dr Templeton for routine care Discharge this afternoon Total Time Total Time Spent Total Time Spent (In Minutes): 35 minutes Total Time Includes: Examination of the Patient, Discharge Planning, Medication Reconciliation and Communication With Other Providers Discharge Plan Discharge Items Patient Disposition: Home - Self-Care Reason For Visit: GI BLEED Discharge Diagnosis: Rectal bleeding-controlled, Crohn's disease, C. difficile colitis, history of pulmonary embolism Condition on Discharge: Fair Activity: Resume your previous activity Non-emergency contact: Primary Care Provider Call non-emergency contact if: you have any medication questions and your symptoms worsen Follow-up/Referrals: Kenneth Haley MD [Physician] - 03/14/20 11:00 am Isaias Templeton MD [Primary Care Provider] - 03/15/20 12:20 pm (Date & Time 03/15/2020 12:20 PM Provider Isaias Templeton MD Department [facility] ) Diet: Carb Consistent or DM2 Addtl Attending Provider Instructions: Please take precaution to avoid falls And to have close monitoring of your INR through the coagulation clinic Pending Studies at Discharge: No Stand-Alone Forms: My [facility] [employer], Smoking Cessation Medications and DC Order Prescriptions: New prednisone 5 mg Tablet 5 mg PO DAILY Qty: 30 RF: 0 vancomycin 125 mg capsule 125 mg PO Q6H 10 Days Qty: 40 RF: 0 warfarin [Coumadin] 4 mg tablet 4 mg PO UD Qty: 30 RF: 0 Continued furosemide [Lasix] 20 mg Tablet 20 mg PO QAM RF: 0 Probiotic Acidophilus Biobeads 12.9 mg (2 billion cell) Tablet,Delayed Release (Dr/Ec) 1 tab PO TIDM RF: 0 sertraline [Zoloft] 50 mg Tablet 50 mg PO QAM RF: 0 dicyclomine 10 mg capsule 10 mg PO BID PRN (Reason: abdominal cramping) RF: 0 levothyroxine 75 mcg Tablet 75 mcg PO DAILYBB RF: 0 cholecalciferol (vitamin D3) [Vitamin D3] 1,000 unit Tablet 1,000 unit PO QAM RF: 0 calcium citrate-vitamin D3 [Citracal-D3 Petites] 200 mg calcium -250 unit Tablet 1 tab PO QAM RF: 0 atorvastatin 40 mg tablet 40 mg PO HS RF: 0 anastrozole 1 mg Tablet 1 mg PO QAM RF: 0 potassium chloride [Klor-Con M20] 20 mEq Tablet,Er Particles/Crystals 20 meq PO BID RF: 0 colestipol 1 gram Tablet 1 g PO TID RF: 0 trazodone 50 mg tablet 50 mg PO HS PRN (Reason: Sleep) RF: 0 Lantus Solostar U-100 Insulin 100 unit/mL (3 mL) insulin pen 22 unit SUBCUT QAM RF: 0 polysaccharide iron complex [Ferrex 150] 150 mg iron capsule 150 mg PO BID RF: 0 triamcinolone acetonide 0.1 % Cream 1 applic TOPICAL BID PRN (Reason: Rash) RF: 0 fluocinonide 0.05 % Ointment 1 applic TOPICAL BID PRN (Reason: Rash) RF: 0 budesonide 9 mg tablet,delayed and ext.release 9 mg PO QAM RF: 0 pantoprazole 40 mg tablet,delayed release (DR/EC) 40 mg PO QAM RF: 0 Discontinued prednisone 10 mg tablet 10 mg PO UD RF: 0 Discharge Orders: Discharge Order (Routine); Ordered 03/11/20 Ordered By: Shannan Koo Admission Data Admit Date/Time: 03/08/20 15:59 Attending Provider: Shannan Koo Admit Provider: Catarino Hong Primary Care Provider: Isaias Templeton Other Providers: Catarino Hong ; Natacha Sánchez ; Kirit Alvarez Other Interventions: Discharge Summary Assessment (RN) Last Done: 03/11/20 12:46
== END 2020-03-11 14:23 | disposition home or self-care (01) | DRG 813 ==
LOC: ED 11:40 → SUATTDRO 15:59 → 2S 15:59 → 2E 23:12

== ENCOUNTER 2020-03-28 14:51 | Inpatient (IN) ==
[2020-03-28 15:41] LABS: Basophils # (auto) 0.02 K/uL (0-0.2); Basophils % (auto) 0.2 %; Eosinophils # (auto) 0.22 K/uL (0-0.5); Eosinophils % (auto) 2.5 %; Hematocrit (blood only) 25.8 % (37-47); Hemoglobin 7.8 g/dL (12.0-16.0); Immature Granulocytes # (auto) 0.31 K/uL (0.00-0.02); Immature Granulocytes % (auto) 3.5 %; Lymphocytes # (auto) 1.31 K/uL (1.2-3.4); Lymphocytes % (auto) 14.8 %; Mean Corpuscular Hemoglobin 25.5 pg (25-34); Mean Corpuscular Hgb Conc 30.2 g/dL (32-36); Mean Corpuscular Volume 84.3 fL (80-100); Mean Platelet Volume 8.8 fL (7.4-10.4); Monocytes # (auto) 0.69 K/uL (0.11-0.59); Monocytes % (auto) 7.8 %; Neutrophils # (auto) 6.29 K/uL (1.4-6.5); Neutrophils % (auto) 71.2 %; Nucleated RBC # (auto) 0.03 K/uL (0-0); Nucleated RBC % (auto) 0.4 %; Platelet Count 507 K/uL (130-400); RDW Coefficient of Variation 17.3 % (11.5-14.5); RDW Standard Deviation 52.2 fL (36.4-46.3); Red Blood Count 3.06 M/uL (4.2-5.4); White Blood Count 8.84 K/uL (4.8-10.8)
[2020-03-28] MEDS ORDERED: PANTOprazole 80 MG in DEXTROSE 5% 100 ML IV ONE (15:43)
[2020-03-28] MEDS ORDERED: PANTOPRAZOLE BOLUS/DRIP 1 EA IV STA (15:43)
[2020-03-28] MEDS ORDERED: SODIUM CHLORIDE 0.9% 250 ML IV PRN ×2 (15:51→18:03)
[2020-03-28 15:52] LABS: INR 2.1 (0.9-1.1); Partial Thromboplastin Time 28.9 Seconds (21.0-31.0); Prothrombin Time 21.6 Seconds (9.0-12.0)
[2020-03-28 15:58] LABS: Alanine Aminotransferase 10 U/L (12-78); Albumin Level 2.2 gm/dl (3.4-5.0); Aspartate Aminotransferase 16 U/L (15-37); BUN Creatinine Ratio 22.1 (10-20); Blood Urea Nitrogen 22 mg/dl (7-18); Calcium 8.6 mg/dl (8.5-10.1); Carbon Dioxide 25 mmol/L (21-32); Chloride 107 mmol/L (98-107); Est GFR (African American) 70.2; Est GFR (Non-African American) 60.5; Glucose 241 mg/dl (70-99); Hypochromasia Present; Ovalocytes 1+; Potassium 3.9 mmol/L (3.5-5.1); Sodium 139 mmol/L (136-145)
--- NOTE | 2020-03-28 15:59 | Emergency Department Note ---
History of Present Illness General Chief complaint: GI Assessment Stated complaint: GI ASSESSMENT Time Seen by Provider: 03/28/20 15:04 Source: patient, RN notes reviewed and old records reviewed Mode of arrival: ambulatory Limitations: no limitations History of Present Illness Provider complaint: SOB Onset (ago): hour(s) 1 Location: abdomen Radiation: back Severity: mild Pain Consistency: + intermittent Maximum Pain Intensity: 2 Current Pain Intensity: 0 Quality: + aching Relieved By: + immobilization Exacerbated By: + movement Associated symptoms: + other (black tarry stool) Treatments prior to arrival: none This 64-year-old female presents emergency to see department with a history of GI bleeds and blood transfusions. The patient [place] walking and became acutely short of breath. The patient felt like she was going to pass out and had to sit down. She reports she has had black and tarry stools for the past week. She has no other complaints. Home Medications Home Medications Medication Instructions Recorded Confirmed Type calcium citrate-vitamin D3 1 tab PO QAM 05/12/18 03/28/20 History [Citracal-D3 Petites] cholecalciferol (vitamin D3) 1,000 unit PO QAM 05/12/18 03/28/20 History [Vitamin D3] levothyroxine 75 mcg PO DAILYBB 05/12/18 03/28/20 History Probiotic Acidophilus Biobeads 1 tab PO TIDM 03/22/19 03/28/20 History furosemide [Lasix] 20 mg PO QAM 03/22/19 03/28/20 History sertraline [Zoloft] 50 mg PO QAM 03/22/19 03/28/20 History anastrozole 1 mg PO QAM 07/21/19 03/28/20 History atorvastatin 40 mg PO HS 07/21/19 03/28/20 History potassium chloride [Klor-Con M20] 20 meq PO BID 07/21/19 03/28/20 History Lantus Solostar U-100 Insulin 22 unit SUBCUT QAM 01/01/20 03/28/20 History trazodone 50 mg PO HS PRN 01/01/20 03/28/20 History polysaccharide iron complex 150 mg PO BID 01/31/20 03/28/20 History [Ferrex 150] budesonide 9 mg PO QAM 02/15/20 03/28/20 History fluocinonide 1 applic TOPICAL BID PRN 02/15/20 03/28/20 History pantoprazole 40 mg PO QAM 02/15/20 03/28/20 History triamcinolone acetonide 1 applic TOPICAL BID PRN 02/15/20 03/28/20 History dicyclomine 10 mg PO BID PRN 03/08/20 03/28/20 History prednisone 5 mg PO DAILY #30 tab 03/11/20 03/28/20 Rx cholestyramine (with sugar) 1 ea PO BID 03/28/20 03/28/20 History [Questran] ustekinumab [Stelara] 0 mg SUBCUT Q8WK 03/28/20 03/28/20 History warfarin 2 mg PO 5XWK 03/28/20 03/28/20 History warfarin [Coumadin] 4 mg PO MOFR 03/28/20 03/28/20 History Allergies Allergy/AdvReac Type Severity Reaction Status Date / Time aztreonam [From Azactam] Allergy Intermediate flushed Verified 03/28/20 17:02 /itching dorzolamide Allergy Unknown EYE LID Verified 03/28/20 17:02 SWELLING latanoprost Allergy Unknown EYE LID Verified 03/28/20 17:02 SWELLING Penicillins Allergy Unknown Rash Verified 03/28/20 17:02 thimerosal Allergy Unknown Unknown Verified 03/28/20 17:02 timolol Allergy Unknown EYE LID Verified 03/28/20 17:02 SWELLING empagliflozin AdvReac Severe Confusion Unverified 03/28/20 17:02 [From Jardiance] Past Med/Surg History Medical History Acute hyponatremia Acute kidney injury Anemia Breast cancer, right 2012--SX & RADIATION, NO CHEMO C. 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) "Abnormal right breast mammogram Biopsy-positive for DCIS Status post lumpectomy with no residual tumor stage pTis NXMX Estrogen receptor positive, progesterone receptor positive Status post completion of radiation therapy 02/22/2013 received 3850 cGy utilizing accelerated partial breast treatment " Leukocytosis (leucocytosis) Obesity (BMI 30-39.9) Pancolitis Severe sepsis SIRS (systemic inflammatory response syndrome) UTI (urinary tract infection) Surgical History H/O breast biopsy 2012--RIGHT MALIGNANT H/O lumpectomy History of appendectomy History of colonoscopy History of lumpectomy of right breast "+ HERBIE ER/HI + in 10/2012 s/p RT" History of tonsillectomy and adenoidectomy Hx of appendectomy S/P insertion of IVC (inferior vena caval) filter 03/29/[address] 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: No Beliefs That Will Affect Care: None marital status: Single Current Living Situation: Family Current Living Situation Comment: alone How many Children do You have: 0 Feels Safe at Home: Yes Safety Concerns: Feels Safe At This Time Physical Exam Vital Signs Vital Signs - 24 hr 03/28/20 14:57 Temperature 36.8 C Temperature Source Oral Pulse Rate 123 H Pulse Rhythm Regular Pulse Strength Normal Respiratory Rate 18 Respiratory Effort / Characteristics Non-Labored Spontaneous Respiratory Depth Normal Respiratory Pattern Regular Blood Pressure 134/84 Blood Pressure Mean 100 Blood Pressure Position Sitting Pulse Oximetry 99 Oxygen Delivery Method Room Air Sepsis Recent Fever Within 48 Hours No Sepsis New/Unexplained Change in Mental Status N/A Sepsis Action Taken by Nursing No Action Required VITAL SIGNS - Vital signs and nursing notes were reviewed. GENERAL - 64-year-old [] appearing [] stated age who is in no acute distress. Communicates well with provider and answers questions appropriately. SKIN - Without rashes. HEAD - NC/AT. EYES - PERRL with EOMI bilaterally. Sclera anicteric. Palpebral conjunctiva pink and moist with no injection noted. EARS - No deformities of external structures noted on gross examination bilaterally. No pain elicited with palpation of the tragus bilaterally. External auditory canals without discharge or otorrhea. Tympanic membranes pearly bernstein without retraction or bulging. No fluid or purulent material visualized behind the TM. Handle of malleus, umbo, cone of light, pars tensa/flaccid all easily visualized. NOSE - Midline and without cyanosis. No epistaxis or purulent drainage noted. Septum midline without deviation or septal hematoma noted. MOUTH/OROPHARYNX - Without perioral cyanosis. Buccal mucosa pink and moist and without leukoplakia. Tongue midline with equal elevation of palate bilaterally. No tonsillar hypertrophy, erythema, or exudates noted. [] dentition noted. NECK - Neck with FROM. Supple to palpation. [] lymphadenopathy noted. No nuchal rigidity. LUNGS - Chest wall symmetric without accessory muscle use, intercostals retractions, or central cyanosis. Normal vesicular breath sounds CTA B/L. No wheezes, rales, or rhonchi appreciated. CARDIAC - RRR with S1/S2. No murmur, rubs, or gallops appreciated. ABDOMEN - Abdominal contour [] without pulsations or visible masses. BS normoactive all four quadrants. No tenderness, palpable masses, hepatosplenomegaly, or ascites noted. EXTREMITIES - No clubbing or peripheral cyanosis. No pretibial edema present. +3/5 radial, posterior tibial, and dorsalis pedis pulses palpated throughout. +5/5 strength noted in UE/LE bilaterally. NEUROLOGIC - Cranial nerves II through XII grossly intact. Sensory intact to light touch throughout. Patellar reflexes +2/4. PSYCH - A&Ox3 and cooperates fully with examiner. Pt is very pleasant and interacts well with examiner. Course Administered Medications Anastrozole (An[facility]zole 1 Mg Tab) [facility] [place] Stop: 04/28/20 08:59 Last Admin: 03/29/20 09:03 Dose: 1 mg Documented by: [id number] Cosigned by: [id number] Atorvastatin Calcium (Atorvastatin 40 Mg Tab) 40 mg PO HS RACHEL Stop: 04/27/20 20:59 Last Admin: 03/28/20 20:15 Dose: 40 mg Documented by: [id number] Budesonide (Budesonide Ec 3 Mg Cap) 9 mg PO QAM RACHEL Stop: 04/28/20 08:59 Last Admin: 03/29/20 09:04 Dose: 9 mg Documented by: [id number] Cholestyramine Resin (Cholestyramine Light 4 Gm Pkt) 4 gm PO BID@1000,2200 RACHEL Stop: 04/27/20 21:59 Last Admin: 03/29/20 12:22 Dose: Not Given Documented by: [id number] Admin: 03/28/20 20:50 Dose: 4 gm Documented by: [id number] Dicyclomine HCl (Dicyclomine Hcl 10 Mg Cap) 10 mg PO BID PRN PRN Reason: abdominal cramping Stop: 04/27/20 18:02 Last Admin: 03/29/20 09:03 Dose: 10 mg Documented by: [id number] Pantoprazole Sodium 40 mg/ (Dextrose) 100 mls @ 20 mls/hr IV Q5H RACHEL Stop: 04/27/20 15:58 Last Admin: 03/29/20 14:40 Dose: 8 mg/hr, 20 mls/hr Documented by: [id number] Infusion: 03/29/20 14:40 Dose: 0 mg/hr, 0 mls/hr Documented by: [id number] Infusion: 03/29/20 13:59 Dose: 0 mg/hr, 0 mls/hr Documented by: [id number] Admin: 03/29/20 09:00 Dose: 8 mg/hr, 20 mls/hr Documented by: [id number] Infusion: 03/29/20 07:31 Dose: 8 mg/hr, 20 mls/hr Documented by: [id number] Admin: 03/29/20 02:31 Dose: 8 mg/hr, 20 mls/hr Documented by: [id number] Infusion: 03/29/20 02:31 Dose: 8 mg/hr, 20 mls/hr Documented by: [id number] Admin: 03/28/20 21:49 Dose: 8 mg/hr, 20 mls/hr Documented by: [id number] Infusion: 03/28/20 21:49 Dose: 8 mg/hr, 20 mls/hr Documented by: [id number] Admin: 03/28/20 17:10 Dose: 8 mg/hr, 20 mls/hr Documented by: [id number] Insulin Aspart (Insulin Aspart 100 Units/Ml 3 Ml Pen) 0 units SC ACHS [facility] Stop: 04/27/20 18:02 Last Admin: 03/29/20 12:22 Dose: Not Given Documented by: [id number] Cosigned by: [id number] Admin: 03/29/20 09:00 Dose: Not Given Documented by: [id number] Cosigned by: [id number] Admin: 03/28/20 20:15 Dose: 1 units Documented by: [id number] Cosigned by: [id number] Admin: 03/28/20 18:47 Dose: 3 units Documented by: [id number] Cosigned by: [id number] Insulin Glargine (Insulin Glargine Solostar 100 Units/Ml 3 Ml Pen) 0 units SC BID [facility] Stop: 04/27/20 20:59 Last Admin: 03/29/20 09:00 Dose: Not Given Documented by: [id number] Admin: 03/28/20 20:15 Dose: 4 units Documented by: [id number] Cosigned by: [id number] Levothyroxine Sodium (Levothyroxine Sodium 75 Mcg Tablet) 75 mcg PO DAILYBB [facility] Stop: 04/28/20 06:29 Last Admin: 03/29/20 05:43 Dose: 75 mcg Documented by: [id number] Multivitamins/Minerals (Calcium 600mg + Vit D 400 Iu Tab) [facility] [place] Stop: 04/28/20 08:59 Last Admin: 03/29/20 09:03 Dose: 1 tab Documented by: [id number] Polysaccharide Iron Complex (Iron Polysaccharide Complex 150 Mg Capsule) 150 mg PO BID [facility] Stop: 04/27/20 20:59 Last Admin: 03/29/20 09:03 Dose: 150 mg Documented by: [id number] Admin: 03/28/20 20:15 Dose: 150 mg Documented by: [id number] Prednisone (Prednisone 5 Mg Tab) 5 mg PO DAILY [facility] Stop: 04/28/20 08:59 Last Admin: 03/29/20 09:03 Dose: 5 mg Documented by: [id number] Sertraline HCl (Sertraline Hcl 50 Mg Tablet) 50 mg PO QAM [facility] Stop: 04/28/20 08:59 Last Admin: 03/29/20 09:03 Dose: 50 mg Documented by: [id number] Vitamin D (Cholecalciferol 1,000 Units 25 Mcg Tab) 1,000 [facility] [place] Stop: 04/28/20 08:59 Last Admin: 03/29/20 09:03 Dose: 1,000 units Documented by: [id number] Discontinued Medications Pantoprazole Sodium (Protonix Bolus/Drip) 0 mls @ 1 mls/hr IV ONE STA Stop: 03/28/20 15:44 Last Admin: 03/28/20 17:09 Dose: Not Given Documented by: [id number] Pantoprazole Sodium 80 mg/ (Dextrose) 120 mls @ 400 mls/hr IV NOW ONE Stop: 03/28/20 16:00 Last Infusion: 03/28/20 18:14 Dose: 0 mls/hr Documented by: [id number] Admin: 03/28/20 17:07 Dose: 400 mls/hr Documented by: [id number] Sodium Chloride (Nss 1000ml) 1,000 mls @ 75 mls/hr IV .[id number] [facility] Stop: 03/29/20 07:34 Last Infusion: 03/29/20 10:21 Dose: 0 mls/hr Documented by: [id number] Admin: 03/28/20 20:47 Dose: 75 mls/hr Documented by: [id number] Lidocaine HCl (Lidocaine Hcl 2% 2 Ml Vial/Amp(20mg/Ml)) Confirm Administered Dose 4 ml INFIL .STK-MED ONE Stop: 03/29/20 13:59 Last Admin: 03/29/20 14:41 Dose: Not Given Documented by: [id number] Propofol (Propofol Iv Emulsion 10 Mg/Ml 20 Ml Vial) Confirm Administered Dose 2 00 mg IV .STK-MED ONE Stop: 03/29/20 13:59 Last Admin: 03/29/20 14:40 Dose: Not Given Documented by: [id number] Critical Care Time I have personally spent greater than 30 minutes of critical care time in the direct management of this patient. This includes bedside care, interpretation of diagnostic studies, and testing, discussion with consultants, patient, and family members, and other required patient management activities. This 30 minutes is in excess of all separately billable procedures. Medical Decision Making Differential Diagnosis Diverticulosis, AVM, coagulopathy, colitis, inflammatory bowel disease, malignancy, Lisette-Mccartney tear, esophagitis, peptic ulcer disease, variceal bleed, gastritis, epistaxis, fissure, hemorrhoids, as well as other pathologies. Medical Records Attestation: I reviewed the patient's medical records. Home Medications Current Medication List: was personally reviewed by me Laboratory Data Attestation: I reviewed the patient's lab results. Result diagrams: 03/29/20 14:53 03/29/20 01:29 Lab Results 03/28/20 03/28/20 03/28/20 Range/Units 15:31 15:31 15:31 WBC 8.84 (4.8-10.8) K/uL RBC 3.06 L (4.2-5.4) M/uL Hgb 7.8 L (12.0-16.0) g/dL POC Hgb (12.0-16.0) g/dl Hct 25.8 L (37-47) % POC Hct (37-47) % MCV 84.3 (80-100) fL MCH 25.5 (25-34) pg MCHC 30.2 L (32-36) g/dL RDW Std Deviation 52.2 H (36.4-46.3) fL RDW Coeff of Conchis 17.3 H (11.5-14.5) % Plt Count 507 H (130-400) K/uL MPV 8.8 (7.4-10.4) fL Immature Gran % (Auto) 3.5 % Neut % (Auto) 71.2 % Lymph % (Auto) 14.8 % Lewis % (Auto) 7.8 % Eos % (Auto) 2.5 % Baso % (Auto) 0.2 % Neut # (Auto) 6.29 (1.4-6.5) K/uL Lymph # (Auto) 1.31 (1.2-3.4) K/uL Lewis # (Auto) 0.69 H (0.11-0.59) K/uL Eos # (Auto) 0.22 (0-0.5) K/uL Baso # (Auto) 0.02 (0-0.2) K/uL Immature Gran # (Auto) 0.31 H (0.00-0.02) K/uL Absolute Nucleated RBC 0.03 H (0-0) K/uL Nucleated RBC % (auto) 0.4 % Hypochromasia Present Ovalocytes 1+ PT 21.6 H (9.0-12.0) Seconds INR 2.1 H (0.9-1.1) APTT 28.9 (21.0-31.0) Seconds PTT Ratio 1.0 POC Sodium (135-144) mmol/L Sodium 139 (136-145) mmol/L POC Potassium (3.3-5.0) mmol/L Potassium 3.9 (3.5-5.1) mmol/L POC Chloride (101-112) mmol/L Chloride 107 (98-107) mmol/L Carbon Dioxide 25 (21-32) mmol/L POC Total CO2 (24-31) mmol/L Anion Gap 7.0 (3-11) POC Anion Gap (16-25) mmol/L POC BUN (7-18) mg/dl BUN 22 H (7-18) mg/dl Creatinine 0.98 (0.6-1.2) mg/dl POC Creatinine (0.6-1.3) mg/dl Est Cr Clr Drug Dosing 48.0 ml/min Est GFR ( Amer) 70.2 Est GFR (Non-Af Amer) 60.5 BUN/Creatinine Ratio 22.1 H (10-20) Glucose 241 H (70-99) mg/dl POC Glucose (other) (70-99) mg/dl Calcium 8.6 (8.5-10.1) mg/dl POC Ioniz Calcium Mike (1.12-1.32) mmol/l Total Bilirubin 0.3 (0.2-1) mg/dl AST 16 (15-37) U/L ALT 10 L (12-78) U/L Alkaline Phosphatase 112 (45-117) U/L Troponin I < 0.015 (0-0.045) ng/ml Total Protein 6.6 (6.4-8.2) gm/dl Albumin 2.2 L (3.4-5.0) gm/dl Globulin 4.4 H (2.5-4.0) gm/dl Albumin/Globulin Ratio 0.5 L (0.9-2) Blood Type Antibody Screen Crossmatch 03/28/20 03/28/20 Range/Units 15:33 15:41 WBC (4.8-10.8) K/uL RBC (4.2-5.4) M/uL Hgb (12.0-16.0) g/dL POC Hgb 8.8 L (12.0-16.0) g/dl Hct (37-47) % POC Hct 26 L (37-47) % MCV (80-100) fL MCH (25-34) pg MCHC (32-36) g/dL RDW Std Deviation (36.4-46.3) fL RDW Coeff of Conchis (11.5-14.5) % Plt Count (130-400) K/uL MPV (7.4-10.4) fL Immature Gran % (Auto) % Neut % (Auto) % Lymph % (Auto) % Lewis % (Auto) % Eos % (Auto) % Baso % (Auto) % Neut # (Auto) (1.4-6.5) K/uL Lymph # (Auto) (1.2-3.4) K/uL Lewis # (Auto) (0.11-0.59) K/uL Eos # (Auto) (0-0.5) K/uL Baso # (Auto) (0-0.2) K/uL Immature Gran # (Auto) (0.00-0.02) K/uL Absolute Nucleated RBC (0-0) K/uL Nucleated RBC % (auto) % Hypochromasia Ovalocytes PT (9.0-12.0) Seconds INR (0.9-1.1) APTT (21.0-31.0) Seconds PTT Ratio POC Sodium 137 (135-144) mmol/L Sodium (136-145) mmol/L POC Potassium 4.0 (3.3-5.0) mmol/L Potassium (3.5-5.1) mmol/L POC Chloride 104 (101-112) mmol/L Chloride (98-107) mmol/L Carbon Dioxide (21-32) mmol/L POC Total CO2 23 L (24-31) mmol/L Anion Gap (3-11) POC Anion Gap 15.0 L (16-25) mmol/L POC BUN 21 H (7-18) mg/dl BUN (7-18) mg/dl Creatinine (0.6-1.2) mg/dl POC Creatinine 0.8 (0.6-1.3) mg/dl Est Cr Clr Drug Dosing ml/min Est GFR ( Amer) Est GFR (Non-Af Amer) BUN/Creatinine Ratio (10-20) Glucose (70-99) mg/dl POC Glucose (other) 241 H (70-99) mg/dl Calcium (8.5-10.1) mg/dl POC Ioniz Calcium Mike 1.28 (1.12-1.32) mmol/l Total Bilirubin (0.2-1) mg/dl AST (15-37) U/L ALT (12-78) U/L Alkaline Phosphatase (45-117) U/L Troponin I (0-0.045) ng/ml Total Protein (6.4-8.2) gm/dl Albumin (3.4-5.0) gm/dl Globulin (2.5-4.0) gm/dl Albumin/Globulin Ratio (0.9-2) Blood Type AB Negative Antibody Screen NEGATIVE Crossmatch See Detail ECG Data Attestation: I personally reviewed and interpreted this ECG as follows: Rate (beats per minute): 106 Rhythm: + sinus tachycardia ECG Intervals/blocks: + Normal QT-c (446) ECG Grannis: + Normal ECG ST segments: no ST depression and no ST elevation Comparison ECG Date: from (03/09/2020) Change: the following changes noted (T wave inversions in inferior leads) MDM Narrative Patient was seen and evaluated as above in room B6. Review was performed of nursing notes and vital signs. I did review pertinent previous visits and patient history. After obtaining a thorough history and physical examination the above work up was performed. This is a 64-year-old female presents emergency department complaining of black and tarry stools as well as generalized weakness. Patient was found to be anemic. She was started on Protonix bolus and drip. She was typed and crossed for 1 unit of packed red blood cells. Consent was signed and placed on the chart. I did discuss the case with the hospitalist service who did agree to admit the patient. Patient is in agreement with the treatment plan. While in the department, I personally reevaluated the patient several times and each time the patient was found to be resting comfortably. The patient was educated upon management, educated upon todays findings/results, educated upon importance of follow up from today's visit, educated upon symptoms in which to return, had questions answered prior to discharge, verbalized understanding, and was discharged home in good condition. An order was placed for continuous cardiac monitoring. The monitor shows a rate of 79 with Normal Sinus rhythm. The patient was evaluated during the global COVID-19 pandemic, and that diagnosis was suspected/considered upon their initial presentation. Their evaluation, treatment and testing was consistent with current guidelines for patients who present with complaints or symptoms that may be related to COVID- 19. Impression & Plan Acute GI bleeding, Acute on chronic blood loss anemia Discharge Plan Visit Data Chief Complaint: GI Assessment Stated Complaint: GI ASSESSMENT ED Provider: Noam Crespo Discharge Problem: Acute GI bleeding, Acute on chronic blood loss anemia Patient Disposition: Admitted As Inpatient Discharge Instructions Interventions: ED Discharge Assessment Last Done: 03/28/20 17:00
[2020-03-28 16:03] LABS: Albumin Globulin Ratio 0.5 (0.9-2); Alkaline Phosphatase 112 U/L (45-117); Bilirubin,Total 0.3 mg/dl (0.2-1); Globulin 4.4 gm/dl (2.5-4.0); Total Protein 6.6 gm/dl (6.4-8.2); Troponin I < 0.015 ng/ml (0-0.045)
[2020-03-28 16:23] LABS: iSTAT Creatinine 0.8 mg/dl (0.6-1.3); iSTAT Hemoglobin 8.8 g/dl (12.0-16.0); iSTAT Ionized Calcium 1.28 mmol/l (1.12-1.32)
--- NOTE | 2020-03-28 16:53 | History & Physical Report ---
Date of Service March 28, 2020 Assessment & Plan (1) Weakness: (2) Acute GI bleeding: (3) Inflammatory bowel disease: (4) Acute on chronic blood loss anemia: This is a 64-year-old female who has significant past medical history of insulin-dependent T2DM, history of chronic LLE DVT/PE anticoagulated with warfarin and ivcf in place, HTN, HLD, hypothyroidism, CKD stage III, diabetic neuropathy, recurrent C. difficile, Crohn's disease who comes to ER secondary to melena and weakness x3 days. Multiple recent hospitalizations for a/c rectal bleeding. In ED patient was hemodynamically stable although she was slightly tachycardic. Her H&H was 7.8 and 25.8, platelet 507, INR 2.1, BUN 22, creatinine 0.98, glucose 241. Type and crossed for 1 unit PRBC PPI bolus and gtt ordered admit to PCU Transfuse 1 unit PRBC repeat/monitor H/H - goal hgb > 8 consult GI clear liquid diet, NPO after midnight continue crohns regimen (5) 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: hx of chronic DVT to left popliteal vein/PE anticoagulated on warfarin Status post IVC filter INR 2.1, hold warfarin Discussed with attending and GI who recommend holding warfarin, no indication for reversal at this point Repeat INR in a.m. (6) CKD (chronic kidney disease), stage III: baseline cr 1.1 bun/cr stable monitor (7) Diabetes: A1c 8.9 02/01/2020 lantus/novolog per protocol home regimen is tresiba 22units daily (8) Hypothyroidism: Continue levothyroxine (9) Depression: Mood stable continue Zoloft (10) DVT prophylaxis: SCD/TEDS hold warfarin in setting of probable GIB Disposition: Admit to tele Follow up: PCP Dr. Templeton upon discharge along with appropriate GI follow up Patient was seen and examined in collaboration with Dr. Ellison, please see addendum History of Present Illness Chief Complaint: Melena and weakness x 3 days. Primary Care Provider: Isaias Templeton MD This is a 64-year-old female who has significant past medical history of insulin-dependent T2DM, history of chronic LLE DVT/PE anticoagulated with warfarin and ivcf in place, HTN, HLD, hypothyroidism, CKD stage III, diabetic neuropathy, recurrent C. difficile, Crohn's disease who comes to ER secondary to melena and weakness x3 days. Daughter is at bedside. [place] when she became very weak and lightheaded. Family called over to GI office recommended urgent ER evaluation due to concern for melena. Of significance patient has had multiple recent hospitalizations. 03/08 and 03/12 : secondary to symptomatic anemia and rectal bleeding. She received 2 units PRBC, GI was on board recommended conservative management and she did not require any further intervention. She was also diagnosed with C. difficile colitis and was treated with regimen of oral vancomycin 125 mg 4 times daily for 10 days. She most recently completed this. Her Coumadin was initially held but resumed at discharge. Hospitalized 02/14 to 02/16 again secondary to rectal bleed with supratherapeutic INR. Discharge hemoglobin was 8.3. She is actively followed by GI as an outpatient. Most recent colonoscopy 02/02/20 revealed ulcerations at rectum, sigmoid, descending and transverse colon along with cecum but ascending colon was spared. Initially she was suspected to have ulcerative colitis but later found to have had Crohn's. Unfortunately she has failed Humira treatment secondary to antibodies and Entyvio. Currently patient complains of being generally weak, lightheaded upon standing, lower abdominal generalized cramping which is usual for her, loose dark tarry stools. She denies any recent fever, chills, sweats, lightheadedness, dizziness, chest pain, cough, shortness with at rest, nausea, vomiting, epigastric abdominal pain. She further denies any dysuria, increased urgency or frequency with urination. Appetite is otherwise been diminished. She recently started protein shakes supplementation secondary to low protein and blood. In ED patient was hemodynamically stable although she was slightly tachycardic. Her H&H was 7.8 and 25.8, platelet 507, INR 2.1, BUN 22, creatinine 0.98, glucose 241. Allergies Allergy/AdvReac Type Severity Reaction Status Date / Time aztreonam [From Azactam] Allergy Intermediate flushed Verified 03/28/20 17:02 /itching dorzolamide Allergy Unknown EYE LID Verified 03/28/20 17:02 SWELLING latanoprost Allergy Unknown EYE LID Verified 03/28/20 17:02 SWELLING Penicillins Allergy Unknown Rash Verified 03/28/20 17:02 thimerosal Allergy Unknown Unknown Verified 03/28/20 17:02 timolol Allergy Unknown EYE LID Verified 03/28/20 17:02 SWELLING empagliflozin AdvReac Severe Confusion Unverified 03/28/20 17:02 [From Jardiance] Home Medications Home Medications Medication Instructions Recorded Confirmed Type calcium citrate-vitamin D3 1 tab PO QAM 05/12/18 03/28/20 History [Citracal-D3 Petites] cholecalciferol (vitamin D3) 1,000 unit PO QAM 05/12/18 03/28/20 History [Vitamin D3] levothyroxine 75 mcg PO DAILYBB 05/12/18 03/28/20 History Probiotic Acidophilus Biobeads 1 tab PO TIDM 03/22/19 03/28/20 History furosemide [Lasix] 20 mg PO QAM 03/22/19 03/28/20 History sertraline [Zoloft] 50 mg PO QAM 03/22/19 03/28/20 History anastrozole 1 mg PO QAM 07/21/19 03/28/20 History atorvastatin 40 mg PO HS 07/21/19 03/28/20 History potassium chloride [Klor-Con M20] 20 meq PO BID 07/21/19 03/28/20 History Lantus Solostar U-100 Insulin 22 unit SUBCUT QAM 01/01/20 03/28/20 History trazodone 50 mg PO HS PRN 01/01/20 03/28/20 History polysaccharide iron complex 150 mg PO BID 01/31/20 03/28/20 History [Ferrex 150] budesonide 9 mg PO QAM 02/15/20 03/28/20 History fluocinonide 1 applic TOPICAL BID PRN 02/15/20 03/28/20 History pantoprazole 40 mg PO QAM 02/15/20 03/28/20 History triamcinolone acetonide 1 applic TOPICAL BID PRN 02/15/20 03/28/20 History dicyclomine 10 mg PO BID PRN 03/08/20 03/28/20 History prednisone 5 mg PO DAILY #30 tab 03/11/20 03/28/20 Rx cholestyramine (with sugar) 1 ea PO BID 03/28/20 03/28/20 History [Questran] ustekinumab [Stelara] 0 mg SUBCUT Q8WK 03/28/20 03/28/20 History warfarin 2 mg PO 5XWK 03/28/20 03/28/20 History warfarin [Coumadin] 4 mg PO MOFR 03/28/20 03/28/20 History Past Med/Surg History Medical History Acute hyponatremia Acute kidney injury Anemia Breast cancer, right 2012--SX & RADIATION, NO CHEMO C. 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) "Abnormal right breast mammogram Biopsy-positive for DCIS Status post lumpectomy with no residual tumor stage pTis NXMX Estrogen receptor positive, progesterone receptor positive Status post completion of radiation therapy 02/22/2013 received 3850 cGy utilizing accelerated partial breast treatment " Leukocytosis (leucocytosis) Obesity (BMI 30-39.9) Pancolitis Severe sepsis SIRS (systemic inflammatory response syndrome) UTI (urinary tract infection) Surgical History H/O breast biopsy 2012--RIGHT MALIGNANT H/O lumpectomy History of appendectomy History of colonoscopy History of lumpectomy of right breast "+ HERBIE ER/DE + in 10/2012 s/p RT" History of tonsillectomy and adenoidectomy Hx of appendectomy S/P insertion of IVC (inferior vena caval) filter 03/29/[address] BUSTAMANTE Status post glaucoma surgery BILT Family History Mother Family history of diabetes mellitus Heart disease Father Family history of diabetes mellitus Heart disease Sister Family history of diabetes mellitus Grandmother Family history of diabetes mellitus PATERNAL Uterine cancer Sister Crohn's disease Social History Smoking Status: Never smoker Second Hand Exposure: No; Hx Alcohol Use: No Hx Substance Use: No Preferred Language: Lithuanian Communication Ability: Effective Visual Impairment: No Limitations Hearing Ability: Normal Software Developer Intern Required: No Beliefs That Will Affect Care: None marital status: Single Current Living Situation: Alone Current Living Situation Comment: alone How many Children do You have: 0 Feels Safe at Home: Yes Review of Systems Review of Systems: All systems reviewed & are unremarkable except as noted in HPI & below Physical Exam Physical Exam: Constitutional: WD/WN, pale, female, vitals as above, NAD, sitting up in bed, pleasant, conversing easily Head: Normocephalic, Atraumatic Eyes: PERRL, conjunctivae normal, anicteric sclerae ENMT: external ear and nose normal, oropharynx normal Neck: trachea midline, no thyromegaly normal visual inspection Respiratory: normal respiratory effort, lungs clear to auscultation, no wheeze, rales, rhonchi. Normal insp/exp effort, no accessory muscle use Cardiovascular: Tachycardic rate, regular rhythm, no murmur, no edema Vessels: no JVD or carotid bruit Chest: normal inspection of chest Abdomen: normal bowel sounds, soft, general tenderness to bilateral lower quadrants, no rebound, no guarding, no rigidity, no hepatosplenomegaly Musculoskeletal: no cyanosis or clubbing, extremities motor strength 5/5 Skin: no rashes, warm and dry normal turgor , cap refill > 2 sec Neurologic: PERRL, EOMI, accommodation nl, no face palsy, no dysarthria CN's II-XI intact bilaterally and moves all extremities Psychiatric: A+Ox3, euthymic affect Lymphatic: no cervical or axillary lymphadenopathy : deferred Results & Data Results & Data ([facility]) Vital Signs (Past 12 Hours) Vital Signs Temp Pulse Resp BP Pulse Ox 03/28/20 14:57 36.8 C 123 H 18 134/84 99 Laboratory Results Short CBC 03/28/20 03/28/20 Range/Units 15:31 15:41 WBC 8.84 (4.8-10.8) K/uL Hgb 7.8 L (12.0-16.0) g/dL POC Hgb 8.8 L (12.0-16.0) g/dl Hct 25.8 L (37-47) % Plt Count 507 H (130-400) K/uL BMP 03/28/20 15:31 Sodium 139 Potassium 3.9 Chloride 107 Carbon Dioxide 25 BUN 22 H Creatinine 0.98 Glucose 241 H Calcium 8.6 Cardiac Enzymes 03/28/20 Range/Units 15:31 Troponin I < 0.015 (0-0.045) ng/ml Liver Function 03/28/20 Range/Units 15:31 Total Bilirubin 0.3 (0.2-1) mg/dl AST 16 (15-37) U/L ALT 10 L (12-78) U/L Alkaline Phosphatase 112 (45-117) U/L Albumin 2.2 L (3.4-5.0) gm/dl Code Status & VTE Plan Code Status Full Code VTE Prophylaxis Plan VTE Prophylaxis will be ordered: Yes Reason for no VTE drug order: Contraindicated Supervising Physician Co-Signing Physician Notes I saw this patient with the physician him assistant, I participated in the history, physical, review of systems, and physical exam. I reviewed the medications with the patient and the physician him assistant and helped reconcile the medications. I helped take a detailed family and social history as well. I formulated the assessment and plan personally with the physician him assistant and went over it with the patient. Physical Exam Gen-AAO x 3, NAD, Afebrile, pale mm Head-NCAT, EOMI, PERRLA, Anicteric Sclera, No Posterior Pharyngeal Erythema Neck-Supple, No JVD, No Thyromegaly, No Masses, No LAD, No Bruits Lungs-Clear to Auscultation Bilaterally, No Rales, No Rhonchi, No Wheezing, No Crepitus Chest-No S4, +S1, +S2, No S3, No Murmurs, No Rubs, No Gallops, No Ectopy Abdomen-Soft, Bowel Sounds Present, Non Tender, Non Distended, No Hepatomegaly, No Splenomegaly, No Palpable Masses, No Rebound, No Rigidity, No Guarding Musculoskeletal-Full Range of Motion Bilaterally, No CVAT Extremities-No Cyanosis, No Clubbing, No Edema Nuero-Cranial Nerves II-XII grossly intact, Motor WNL, DTRs WNL, Strength WNL, Non Focal Psych-Normal Mood (1) Hypothyroidism Hypothyroidism type: unspecified Qualified Code(s): E03.9 - Hypothyroidism, unspecified
[2020-03-28] MEDS: PANTOprazole 40 MG in DEXTROSE 5% 100 ML IV SCH ×2 (17:10→21:49)
[2020-03-28] MEDS ORDERED: CARBOHYDRATES FOR HYPOGLYCEMIA PO PRN (18:03)
[2020-03-28] MEDS ORDERED: GLUCOSE 10 TABS/TUBE PO PRN (18:03)
[2020-03-28] MEDS ORDERED: TRAZODONE HCL 50 MG TAB PO PRN (18:03)
[2020-03-28] MEDS ORDERED: GLUCOSE 40% GEL 15 GM TUBE PO PRN (18:03)
[2020-03-28] MEDS ORDERED: ONDANSETRON INJ 2 MG/ML 2 ML VIAL IV PRN (18:03)
[2020-03-28] MEDS ORDERED: DEXTROSE 50% 50 ML SYRINGE IV PRN (18:03)
[2020-03-28] MEDS ORDERED: ACETAMINOPHEN 325 MG TAB PO PRN (18:03)
[2020-03-28] MEDS ORDERED: GLUCAGON FOR INJ 1 MG VIAL SQ PRN (18:03)
[2020-03-28] MEDS ORDERED: DICYCLOMINE HCL 10 MG CAP PO PRN (18:03)
[2020-03-28] MEDS ORDERED: SODIUM CHLORIDE 0.9% 1000ML 1,000 ML IV SCH (18:15)
[2020-03-28] MEDS: INSULIN ASPART 100 UNITS/ML 3 ML PEN SC SCH ×2 (18:47→20:15)
[2020-03-28] MEDS: IRON POLYSACCHARIDE COMPLEX 150 MG CAPSULE PO SCH (20:15)
[2020-03-28] MEDS: ATORVASTATIN 40 MG TAB PO SCH (20:15)
[2020-03-28] MEDS: INSULIN GLARGINE SOLOSTAR 100 UNITS/ML 3 ML PEN SC SCH (20:15)
[2020-03-28] MEDS: CHOLESTYRAMINE LIGHT 4 GM PKT PO SCH (20:50)
[2020-03-28 21:11] LABS: Hematocrit (blood only) 26.4 % (37-47); Hemoglobin 8.1 g/dL (12.0-16.0)
[2020-03-29 01:45] LABS: Hematocrit (blood only) 26.2 % (37-47); Hemoglobin 8.1 g/dL (12.0-16.0); Mean Corpuscular Hemoglobin 25.6 pg (25-34); Mean Corpuscular Hgb Conc 30.9 g/dL (32-36); Mean Corpuscular Volume 82.6 fL (80-100); Mean Platelet Volume 8.4 fL (7.4-10.4); Platelet Count 402 K/uL (130-400); RDW Coefficient of Variation 16.6 % (11.5-14.5); Red Blood Count 3.17 M/uL (4.2-5.4); White Blood Count 8.55 K/uL (4.8-10.8)
[2020-03-29 01:56] LABS: Prothrombin Time 20.7 Seconds (9.0-12.0)
[2020-03-29 02:04] LABS: Albumin Level 1.8 gm/dl (3.4-5.0); BUN Creatinine Ratio 19.1 (10-20); Calcium 8.4 mg/dl (8.5-10.1); Creatinine Clr Calc Pharmacy 60.1 ml/min; Est GFR (African American) 92.5; Est GFR (Non-African American) 79.8; Potassium 3.6 mmol/L (3.5-5.1)
[2020-03-29 02:10] LABS: Albumin Globulin Ratio 0.5 (0.9-2); Bilirubin,Total 0.5 mg/dl (0.2-1); Globulin 3.7 gm/dl (2.5-4.0); Total Protein 5.5 gm/dl (6.4-8.2)
[2020-03-29] MEDS: PANTOprazole 40 MG in DEXTROSE 5% 100 ML IV SCH ×5 (02:31→23:25)
[2020-03-29] MEDS: LEVOTHYROXINE SODIUM 75 MCG TABLET PO SCH (05:43)
[2020-03-29 08:08] LABS: Hematocrit (blood only) 27.4 % (37-47); Hemoglobin 8.5 g/dL (12.0-16.0)
--- NOTE | 2020-03-29 08:20 | Electrocardiogram Report ---
Test Reason : Blood Pressure : / mmHG Vent. Rate : 106 BPM Atrial Rate : 106 BPM P-R Int : 140 ms QRS Dur : 072 ms QT Int : 336 ms P-R-T Axes : 053 -09 024 degrees QTc Int : 446 ms Poor data quality, interpretation may be adversely affected Sinus tachycardia Poor R wave progression, consider anterior MT vs. lead placement vs. LVH Abnormal ECG When compared with ECG of 09-MAR-2020 07:09, T wave amplitude has increased in Lateral leads Confirmed by Denzel Bradshaw ([id number]) on 03/29/2020 8:19:52 AM Referred By: REFERRED SELF Confirmed By:Denzel Bradshaw
[2020-03-29] MEDS ORDERED: PANTOprazole 40 MG TAB PO SCH (09:00)
[2020-03-29] MEDS: INSULIN ASPART 100 UNITS/ML 3 ML PEN SC SCH ×4 (09:00→20:41)
[2020-03-29] MEDS: INSULIN GLARGINE SOLOSTAR 100 UNITS/ML 3 ML PEN SC SCH ×2 (09:00→20:41)
[2020-03-29] MEDS: CHOLECALCIFEROL 1,000 UNITS 25 MCG TAB PO SCH (09:03)
[2020-03-29] MEDS: IRON POLYSACCHARIDE COMPLEX 150 MG CAPSULE PO SCH ×2 (09:03→20:14)
[2020-03-29] MEDS: predniSONE 5 MG TAB PO SCH (09:03)
[2020-03-29] MEDS: SERTRALINE HCL 50 MG TABLET PO SCH (09:03)
[2020-03-29] MEDS: CALCIUM 600MG + VIT D 400 IU TAB PO SCH (09:03)
[2020-03-29] MEDS: ANASTROZOLE 1 MG TAB PO SCH (09:03)
[2020-03-29] MEDS: BUDESONIDE EC 3 MG CAP PO SCH (09:04)
--- NOTE | 2020-03-29 09:13 | Gastrointestinal Consultation ---
Date of Consultation March 29, 2020 Assessment & Plan (1) Acute GI ble[age]-year-old female who has significant past medical history of insulin- dependent T2DM, history of chronic LLE DVT/PE anticoagulated with warfarin and ivcf in place, HTN, HLD, hypothyroidism, CKD stage III, diabetic neuropathy, recurrent C. difficile, Crohn's disease who comes to ER secondary to melena and weakness x3 days - tachy on admission, HGB 7.8 s/p RBC x 1 unit w/ AM HGB 8.5. - NPO - EGD - Hold coumadin today - Trend HGB - Monitor and document GI output - Transfuse PRN - Continue IV PPI until EGD completed - Continue OP taper per primary GI - Continue Stelara per primary GI Thank you for allowing us to participate in the care of this patient. Please call with any acute changes, questions or concerns. Please see addendum below with additional recommendation from my supervising physician. Supervising Physician Co-Signing Physician Notes I have personally seen and examined the patient with MARK Argueta. Her note reflects my exam and findings. I agree with her impression and plan. Given presentation and after evaluating patient, we will arrange an EGD today to look for high risk bleeding site. Cont to follow H/H. Alonso Felton M.D. History of Present Illness Reason for Consultation: melena Requesting Physician: Hayes Attending Physician: Shannan Koo MD History of Present Illness 64-year-old female who has significant past medical history of insulin-dependent T2DM, history of chronic LLE DVT/PE anticoagulated with warfarin and ivcf in place, HTN, HLD, hypothyroidism, CKD stage III, diabetic neuropathy, recurrent C. difficile, Crohn's disease who comes to ER secondary to melena and weakness x3 days. Multiple recent hospitalizations for a/c rectal bleeding. Pt was seen and evaluated. Suggests that she has been started on Stelara and taking her IBD meds as directed. Is on both PO prednisone and uceris. Notes that about 3/4 days ago developed dark, tarry stools. Numerous BMs. associated with weakness, fatigue and palor. Sought ED care. In ED patient was hemodynamically stable although she was slightly tachycardic. Her H&H was 7.8 and 25.8, platelet 507, INR 2.1, BUN 22, creatinine 0.98, glucose 241. Type and crossed for 1 unit PRBC PPI bolus and gtt ordered. Overnight, HGB 8.5. Persistent, dark, tarry stools. Allergies Allergy/AdvReac Type Severity Reaction Status Date / Time aztreonam [From Azactam] Allergy Intermediate flushed Verified 03/28/20 17:02 /itching dorzolamide Allergy Unknown EYE LID Verified 03/28/20 17:02 SWELLING latanoprost Allergy Unknown EYE LID Verified 03/28/20 17:02 SWELLING Penicillins Allergy Unknown Rash Verified 03/28/20 17:02 thimerosal Allergy Unknown Unknown Verified 03/28/20 17:02 timolol Allergy Unknown EYE LID Verified 03/28/20 17:02 SWELLING empagliflozin AdvReac Severe Confusion Unverified 03/28/20 17:02 [From Jardiance] Home Medications Home Medications Medication Instructions Recorded Confirmed Type calcium citrate-vitamin D3 1 tab PO QAM 05/12/18 03/28/20 History [Citracal-D3 Petites] cholecalciferol (vitamin D3) 1,000 unit PO QAM 05/12/18 03/28/20 History [Vitamin D3] levothyroxine 75 mcg PO DAILYBB 05/12/18 03/28/20 History Probiotic Acidophilus Biobeads 1 tab PO TIDM 03/22/19 03/28/20 History furosemide [Lasix] 20 mg PO QAM 03/22/19 03/28/20 History sertraline [Zoloft] 50 mg PO QAM 03/22/19 03/28/20 History anastrozole 1 mg PO QAM 07/21/19 03/28/20 History atorvastatin 40 mg PO HS 07/21/19 03/28/20 History potassium chloride [Klor-Con M20] 20 meq PO BID 07/21/19 03/28/20 History Lantus Solostar U-100 Insulin 22 unit SUBCUT QAM 01/01/20 03/28/20 History trazodone 50 mg PO HS PRN 01/01/20 03/28/20 History polysaccharide iron complex 150 mg PO BID 01/31/20 03/28/20 History [Ferrex 150] budesonide 9 mg PO QAM 02/15/20 03/28/20 History fluocinonide 1 applic TOPICAL BID PRN 02/15/20 03/28/20 History pantoprazole 40 mg PO QAM 02/15/20 03/28/20 History triamcinolone acetonide 1 applic TOPICAL BID PRN 02/15/20 03/28/20 History dicyclomine 10 mg PO BID PRN 03/08/20 03/28/20 History prednisone 5 mg PO DAILY #30 tab 03/11/20 03/28/20 Rx cholestyramine (with sugar) 1 ea PO BID 03/28/20 03/28/20 History [Questran] ustekinumab [Stelara] 0 mg SUBCUT Q8WK 03/28/20 03/28/20 History warfarin 2 mg PO 5XWK 03/28/20 03/28/20 History warfarin [Coumadin] 4 mg PO MOFR 03/28/20 03/28/20 History Patient History Medical History Acute hyponatremia Acute kidney injury Anemia Breast cancer, right 2012--SX & RADIATION, NO CHEMO C. 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) "Abnormal right breast mammogram Biopsy-positive for DCIS Status post lumpectomy with no residual tumor stage pTis NXMX Estrogen receptor positive, progesterone receptor positive Status post completion of radiation therapy 02/22/2013 received 3850 cGy utilizing accelerated partial breast treatment " Leukocytosis (leucocytosis) Obesity (BMI 30-39.9) Pancolitis Severe sepsis SIRS (systemic inflammatory response syndrome) UTI (urinary tract infection) Surgical History H/O breast biopsy 2012--RIGHT MALIGNANT H/O lumpectomy History of appendectomy History of colonoscopy History of lumpectomy of right breast "+ HERBIE ER/CO + in 10/2012 s/p RT" History of tonsillectomy and adenoidectomy Hx of appendectomy S/P insertion of IVC (inferior vena caval) filter 03/29/[address] BUSTAMANTE Status post glaucoma surgery BILT Family History Mother Family history of diabetes mellitus Heart disease Father Family history of diabetes mellitus Heart disease Sister Family history of diabetes mellitus Grandmother Family history of diabetes mellitus PATERNAL Uterine cancer Sister Crohn's disease Social History Smoking Status: Never smoker Second Hand Exposure: No; Hx Alcohol Use: No Hx Substance Use: No Preferred Language: Nam[place]ian Communication Ability: Effective Visual Impairment: No Limitations Hearing Ability: Normal Shuttle Final Inspector Required: No Beliefs That Will Affect Care: None marital status: Single Current Living Situation: Family Current Living Situation Comment: alone How many Children do You have: 0 Feels Safe at Home: Yes Safety Concerns: Feels Safe At This Time Review of Systems Constitutional: no fever and no chills Respiratory: no cough and no dyspnea Cardiovascular: no chest pain and no dyspnea Gastrointestinal: + abdominal pain, + diarrhea/loose stools and + melena; no change in bowel habits and no blood in stools Physical Exam Constitutional: + ill appearing (chronically ill); no acute distress Neck: trachea midline Respiratory: normal respiratory effort Gastrointestinal (Abdomen): normal bowel sounds, soft, nontender, no hepatosplenomegaly Results & Data ([facility]) Vital Signs (Past 12 Hours) Vital Signs Temp Pulse Pulse Pulse Resp BP Pulse Ox 03/29/20 07:05 36.6 C 87 18 128/79 96 03/29/20 05:21 84 03/29/20 03:16 37.0 C 81 17 113/68 97 03/28/20 23:04 36.7 C 86 18 123/71 92 Laboratory Results 03/29/20 03/29/20 03/29/20 Range/Units 07:55 07:05 01:29 WBC (4.8-10.8) K/uL RBC (4.2-5.4) M/uL Hgb 8.5 L (12.0-16.0) g/dL POC Hgb (12.0-16.0) g/dl Hct 27.4 L (37-47) % POC Hct (37-47) % MCV (80-100) fL MCH (25-34) pg MCHC (32-36) g/dL RDW Std Deviation (36.4-46.3) fL RDW Coeff of Conchis (11.5-14.5) % Plt Count (130-400) K/uL MPV (7.4-10.4) fL Immature Gran % (Auto) % Neut % (Auto) % Lymph % (Auto) % Crook % (Auto) % Eos % (Auto) % Baso % (Auto) % Neut # (Auto) (1.4-6.5) K/uL Lymph # (Auto) (1.2-3.4) K/uL Crook # (Auto) (0.11-0.59) K/uL Eos # (Auto) (0-0.5) K/uL Baso # (Auto) (0-0.2) K/uL Immature Gran # (Auto) (0.00-0.02) K/uL Absolute Nucleated RBC (0-0) K/uL Nucleated RBC % (auto) % Hypochromasia Ovalocytes PT (9.0-12.0) Seconds INR (0.9-1.1) APTT (21.0-31.0) Seconds PTT Ratio POC Sodium (135-144) mmol/L Sodium 142 (136-145) mmol/L POC Potassium (3.3-5.0) mmol/L Potassium 3.6 (3.5-5.1) mmol/L POC Chloride (101-112) mmol/L Chloride 111 H (98-107) mmol/L Carbon Dioxide 25 (21-32) mmol/L POC Total CO2 (24-31) mmol/L Anion Gap 6.0 (3-11) POC Anion Gap (16-25) mmol/L POC BUN (7-18) mg/dl BUN 15 (7-18) mg/dl Creatinine 0.78 (0.6-1.2) mg/dl POC Creatinine (0.6-1.3) mg/dl Est Cr Clr Drug Dosing 60.1 ml/min Est GFR ( Amer) 92.5 Est GFR (Non-Af Amer) 79.8 BUN/Creatinine Ratio 19.1 (10-20) Glucose 70 (70-99) mg/dl POC Glucose 79 (70-99) mg/dl POC Glucose (other) (70-99) mg/dl Calcium 8.4 L (8.5-10.1) mg/dl POC Ioniz Calcium Mike (1.12-1.32) mmol/l Total Bilirubin 0.5 (0.2-1) mg/dl AST 18 (15-37) U/L ALT 8 L (12-78) U/L Alkaline Phosphatase 87 (45-117) U/L Troponin I (0-0.045) ng/ml Total Protein 5.5 L (6.4-8.2) gm/dl Albumin 1.8 L (3.4-5.0) gm/dl Globulin 3.7 (2.5-4.0) gm/dl Albumin/Globulin Ratio 0.5 L (0.9-2) Stool Occult Bld Scrn (Negative) Blood Type Antibody Screen Crossmatch 03/29/20 03/29/20 03/28/20 Range/Units 01:29 01:29 21:03 WBC 8.55 (4.8-10.8) K/uL RBC 3.17 L (4.2-5.4) M/uL Hgb 8.1 L 8.1 L (12.0-16.0) g/dL POC Hgb (12.0-16.0) g/dl Hct 26.2 L 26.4 L (37-47) % POC Hct (37-47) % MCV 82.6 (80-100) fL MCH 25.6 (25-34) pg MCHC 30.9 L (32-36) g/dL RDW Std Deviation 50.0 H (36.4-46.3) fL RDW Coeff of Conchis 16.6 H (11.5-14.5) % Plt Count 402 H (130-400) K/uL MPV 8.4 (7.4-10.4) fL Immature Gran % (Auto) % Neut % (Auto) % Lymph % (Auto) % Crook % (Auto) % Eos % (Auto) % Baso % (Auto) % Neut # (Auto) (1.4-6.5) K/uL Lymph # (Auto) (1.2-3.4) K/uL Crook # (Auto) (0.11-0.59) K/uL Eos # (Auto) (0-0.5) K/uL Baso # (Auto) (0-0.2) K/uL Immature Gran # (Auto) (0.00-0.02) K/uL Absolute Nucleated RBC (0-0) K/uL Nucleated RBC % (auto) % Hypochromasia Ovalocytes PT 20.7 H (9.0-12.0) Seconds INR 2.0 H (0.9-1.1) APTT (21.0-31.0) Seconds PTT Ratio POC Sodium (135-144) mmol/L Sodium (136-145) mmol/L POC Potassium (3.3-5.0) mmol/L Potassium (3.5-5.1) mmol/L POC Chloride (101-112) mmol/L Chloride (98-107) mmol/L Carbon Dioxide (21-32) mmol/L POC Total CO2 (24-31) mmol/L Anion Gap (3-11) POC Anion Gap (16-25) mmol/L POC BUN (7-18) mg/dl BUN (7-18) mg/dl Creatinine (0.6-1.2) mg/dl POC Creatinine (0.6-1.3) mg/dl Est Cr Clr Drug Dosing ml/min Est GFR ( Amer) Est GFR (Non-Af Amer) BUN/Creatinine Ratio (10-20) Glucose (70-99) mg/dl POC Glucose (70-99) mg/dl POC Glucose (other) (70-99) mg/dl Calcium (8.5-10.1) mg/dl POC Ioniz Calcium Mike (1.12-1.32) mmol/l Total Bilirubin (0.2-1) mg/dl AST (15-37) U/L ALT (12-78) U/L Alkaline Phosphatase (45-117) U/L Troponin I (0-0.045) ng/ml Total Protein (6.4-8.2) gm/dl Albumin (3.4-5.0) gm/dl Globulin (2.5-4.0) gm/dl Albumin/Globulin Ratio (0.9-2) Stool Occult Bld Scrn (Negative) Blood Type Antibody Screen Crossmatch 03/28/20 03/28/20 03/28/20 Range/Units 20:12 19:20 18:06 WBC (4.8-10.8) K/uL RBC (4.2-5.4) M/uL Hgb (12.0-16.0) g/dL POC Hgb (12.0-16.0) g/dl Hct (37-47) % POC Hct (37-47) % MCV (80-100) fL MCH (25-34) pg MCHC (32-36) g/dL RDW Std Deviation (36.4-46.3) fL RDW Coeff of Conchis (11.5-14.5) % Plt Count (130-400) K/uL MPV (7.4-10.4) fL Immature Gran % (Auto) % Neut % (Auto) % Lymph % (Auto) % Crook % (Auto) % Eos % (Auto) % Baso % (Auto) % Neut # (Auto) (1.4-6.5) K/uL Lymph # (Auto) (1.2-3.4) K/uL Crook # (Auto) (0.11-0.59) K/uL Eos # (Auto) (0-0.5) K/uL Baso # (Auto) (0-0.2) K/uL Immature Gran # (Auto) (0.00-0.02) K/uL Absolute Nucleated RBC (0-0) K/uL Nucleated RBC % (auto) % Hypochromasia Ovalocytes PT (9.0-12.0) Seconds INR (0.9-1.1) APTT (21.0-31.0) Seconds PTT Ratio POC Sodium (135-144) mmol/L Sodium (136-145) mmol/L POC Potassium (3.3-5.0) mmol/L Potassium (3.5-5.1) mmol/L POC Chloride (101-112) mmol/L Chloride (98-107) mmol/L Carbon Dioxide (21-32) mmol/L POC Total CO2 (24-31) mmol/L Anion Gap (3-11) POC Anion Gap (16-25) mmol/L POC BUN (7-18) mg/dl BUN (7-18) mg/dl Creatinine (0.6-1.2) mg/dl POC Creatinine (0.6-1.3) mg/dl Est Cr Clr Drug Dosing ml/min Est GFR ( Amer) Est GFR (Non-Af Amer) BUN/Creatinine Ratio (10-20) Glucose (70-99) mg/dl POC Glucose 160 H 191 H (70-99) mg/dl POC Glucose (other) (70-99) mg/dl Calcium (8.5-10.1) mg/dl POC Ioniz Calcium Mike (1.12-1.32) mmol/l Total Bilirubin (0.2-1) mg/dl AST (15-37) U/L ALT (12-78) U/L Alkaline Phosphatase (45-117) U/L Troponin I (0-0.045) ng/ml Total Protein (6.4-8.2) gm/dl Albumin (3.4-5.0) gm/dl Globulin (2.5-4.0) gm/dl Albumin/Globulin Ratio (0.9-2) Stool Occult Bld Scrn Positive A (Negative) Blood Type Antibody Screen Crossmatch 03/28/20 03/28/20 03/28/20 Range/Units 15:41 15:33 15:31 WBC (4.8-10.8) K/uL RBC (4.2-5.4) M/uL Hgb (12.0-16.0) g/dL POC Hgb 8.8 L (12.0-16.0) g/dl Hct (37-47) % POC Hct 26 L (37-47) % MCV (80-100) fL MCH (25-34) pg MCHC (32-36) g/dL RDW Std Deviation (36.4-46.3) fL RDW Coeff of Conchis (11.5-14.5) % Plt Count (130-400) K/uL MPV (7.4-10.4) fL Immature Gran % (Auto) % Neut % (Auto) % Lymph % (Auto) % Crook % (Auto) % Eos % (Auto) % Baso % (Auto) % Neut # (Auto) (1.4-6.5) K/uL Lymph # (Auto) (1.2-3.4) K/uL Crook # (Auto) (0.11-0.59) K/uL Eos # (Auto) (0-0.5) K/uL Baso # (Auto) (0-0.2) K/uL Immature Gran # (Auto) (0.00-0.02) K/uL Absolute Nucleated RBC (0-0) K/uL Nucleated RBC % (auto) % Hypochromasia Ovalocytes PT (9.0-12.0) Seconds INR (0.9-1.1) APTT (21.0-31.0) Seconds PTT Ratio POC Sodium 137 (135-144) mmol/L Sodium 139 (136-145) mmol/L POC Potassium 4.0 (3.3-5.0) mmol/L Potassium 3.9 (3.5-5.1) mmol/L POC Chloride 104 (101-112) mmol/L Chloride 107 (98-107) mmol/L Carbon Dioxide 25 (21-32) mmol/L POC Total CO2 23 L (24-31) mmol/L Anion Gap 7.0 (3-11) POC Anion Gap 15.0 L (16-25) mmol/L POC BUN 21 H (7-18) mg/dl BUN 22 H (7-18) mg/dl Creatinine 0.98 (0.6-1.2) mg/dl POC Creatinine 0.8 (0.6-1.3) mg/dl Est Cr Clr Drug Dosing 48.0 ml/min Est GFR ( Amer) 70.2 Est GFR (Non-Af Amer) 60.5 BUN/Creatinine Ratio 22.1 H (10-20) Glucose 241 H (70-99) mg/dl POC Glucose (70-99) mg/dl POC Glucose (other) 241 H (70-99) mg/dl Calcium 8.6 (8.5-10.1) mg/dl POC Ioniz Calcium Mike 1.28 (1.12-1.32) mmol/l Total Bilirubin 0.3 (0.2-1) mg/dl AST 16 (15-37) U/L ALT 10 L (12-78) U/L Alkaline Phosphatase 112 (45-117) U/L Troponin I < 0.015 (0-0.045) ng/ml Total Protein 6.6 (6.4-8.2) gm/dl Albumin 2.2 L (3.4-5.0) gm/dl Globulin 4.4 H (2.5-4.0) gm/dl Albumin/Globulin Ratio 0.5 L (0.9-2) Stool Occult Bld Scrn (Negative) Blood Type AB Negative Antibody Screen NEGATIVE Crossmatch See Detail 03/28/20 03/28/20 Range/Units 15:31 15:31 WBC 8.84 (4.8-10.8) K/uL RBC 3.06 L (4.2-5.4) M/uL Hgb 7.8 L (12.0-16.0) g/dL POC Hgb (12.0-16.0) g/dl Hct 25.8 L (37-47) % POC Hct (37-47) % MCV 84.3 (80-100) fL MCH 25.5 (25-34) pg MCHC 30.2 L (32-36) g/dL RDW Std Deviation 52.2 H (36.4-46.3) fL RDW Coeff of Conchis 17.3 H (11.5-14.5) % Plt Count 507 H (130-400) K/uL MPV 8.8 (7.4-10.4) fL Immature Gran % (Auto) 3.5 % Neut % (Auto) 71.2 % Lymph % (Auto) 14.8 % Crook % (Auto) 7.8 % Eos % (Auto) 2.5 % Baso % (Auto) 0.2 % Neut # (Auto) 6.29 (1.4-6.5) K/uL Lymph # (Auto) 1.31 (1.2-3.4) K/uL Crook # (Auto) 0.69 H (0.11-0.59) K/uL Eos # (Auto) 0.22 (0-0.5) K/uL Baso # (Auto) 0.02 (0-0.2) K/uL Immature Gran # (Auto) 0.31 H (0.00-0.02) K/uL Absolute Nucleated RBC 0.03 H (0-0) K/uL Nucleated RBC % (auto) 0.4 % Hypochromasia Present Ovalocytes 1+ PT 21.6 H (9.0-12.0) Seconds INR 2.1 H (0.9-1.1) APTT 28.9 (21.0-31.0) Seconds PTT Ratio 1.0 POC Sodium (135-144) mmol/L Sodium (136-145) mmol/L POC Potassium (3.3-5.0) mmol/L Potassium (3.5-5.1) mmol/L POC Chloride (101-112) mmol/L Chloride (98-107) mmol/L Carbon Dioxide (21-32) mmol/L POC Total CO2 (24-31) mmol/L Anion Gap (3-11) POC Anion Gap (16-25) mmol/L POC BUN (7-18) mg/dl BUN (7-18) mg/dl Creatinine (0.6-1.2) mg/dl POC Creatinine (0.6-1.3) mg/dl Est Cr Clr Drug Dosing ml/min Est GFR ( Amer) Est GFR (Non-Af Amer) BUN/Creatinine Ratio (10-20) Glucose (70-99) mg/dl POC Glucose (70-99) mg/dl POC Glucose (other) (70-99) mg/dl Calcium (8.5-10.1) mg/dl POC Ioniz Calcium Mike (1.12-1.32) mmol/l Total Bilirubin (0.2-1) mg/dl AST (15-37) U/L ALT (12-78) U/L Alkaline Phosphatase (45-117) U/L Troponin I (0-0.045) ng/ml Total Protein (6.4-8.2) gm/dl Albumin (3.4-5.0) gm/dl Globulin (2.5-4.0) gm/dl Albumin/Globulin Ratio (0.9-2) Stool Occult Bld Scrn (Negative) Blood Type Antibody Screen Crossmatch
--- NOTE | 2020-03-29 12:11 | Hospitalist Progress Note ---
Date of Service March 29, 2020 Assessment & Plan (1) Acute GI bleeding: This is a 64-year-old female who has significant past medical history of insulin-dependent T2DM, history of chronic LLE DVT/PE anticoagulated with warfarin and ivcf in place, HTN, HLD, hypothyroidism, CKD stage III, diabetic neuropathy, recurrent C. difficile, Crohn's disease who comes to ER secondary to melena and weakness x3 days. Upper GI bleed is complicated by use of Coumadin Denies any use of NSAID use Hemoglobin on admission was 7.8 and received 1 unit of blood transfusion No prior history of EGD Has been on n.p.o. and intravenous Protonix drip Monitor H&H-0.5 as on 03/29/2020 Appreciate GI input and recommendation of doing EGD this afternoon (2) Acute on chronic blood loss anemia: As above History of recurrent rectal bleed History of Crohn's disease Status post colonoscopy (3) Weakness: Likely secondary to symptoms of anemia (4) Inflammatory bowel disease: History of Crohn's disease Does not have any acute exacerbation now (5) 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: hx of chronic DVT to left popliteal vein/PE anticoagulated on warfarin Status post IVC filter INR 2.1, hold warfarin Discussed with attending and GI who recommend holding warfarin, no indication for reversal at this point Repeat INR in a.m. (6) CKD (chronic kidney disease), stage III: baseline cr 1.1 bun/cr stable monitor (7) Diabetes: A1c 8.9 02/01/2020 lantus/novolog per protocol home regimen is tresiba 22units daily (8) Hypothyroidism: Continue levothyroxine (9) Depression: Mood stable continue Zoloft (10) DVT prophylaxis: SCD/TEDS hold warfarin in setting of probable GIB Disposition: Admit to tele Follow up: PCP Dr. Templeton upon discharge along with appropriate GI follow up Admission and Anticipated Discharge Date Admission Date: March 28, 2020 Subjective 03/29/2020 The patient was seen and examined in telemetry unit She complains to have weakness, shortness of breath on exertion and ongoing black tarry stools while she has been on Coumadin She feels a little bit better and denies any other significant symptoms Review of Systems Review of Systems: All systems reviewed and are unremarkable except as noted below Cardiovascular: + edema (Bilateral 1+ leg edema) Gastrointestinal: + abdominal pain (Mild epigastric discomfort); no bloating, no nausea and no vomiting Physical Exam Physical Exam: Lying in bed comfortably Constitutional: well developed, well nourished and + ill appearing; no acute distress Eyes: PERRL, conjunctivae normal, anicteric sclerae ENMT: external ear and nose normal, oropharynx normal Neck: trachea midline, no thyromegaly Respiratory: normal respiratory effort; no respiratory distress Auscultation: lungs clear to auscultation bilaterally Cardiovascular: Rate/Rhythm: regular rate and regular rhythm Heart Sounds: no murmur Extremities: + edema (Bilateral leg edema about 1+) Gastrointestinal (Abdomen): Inspection/Auscultation: abdomen normal to inspection and normal bowel sounds; abdomen not distended Percussion/Palpation: + abdomen tender (Minimally tender epigastrium) and abdomen soft; no guarding Musculoskeletal: No acute arthritis involving any joints Neurologic: moves all extremities; no focal motor deficits Alert, awake and oriented x3 Results & Data Results & Data ([facility]) Vital Signs (Past 12 Hours) Vital Signs Temp Pulse Pulse Pulse Resp BP Pulse Ox 03/29/20 11:29 37.1 C 97 H 17 131/74 96 03/29/20 08:35 81 03/29/20 07:05 36.6 C 87 18 128/79 96 03/29/20 05:21 84 03/29/20 03:16 37.0 C 81 17 113/68 97 Laboratory Results Short CBC 03/28/20 03/28/20 03/29/20 Range/Units 15:31 21:03 01:29 WBC 8.84 8.55 (4.8-10.8) K/uL Hgb 7.8 L 8.1 L 8.1 L (12.0-16.0) g/dL Hct 25.8 L 26.4 L 26.2 L (37-47) % Plt Count 507 H 402 H (130-400) K/uL 03/29/20 Range/Units 07:55 WBC (4.8-10.8) K/uL Hgb 8.5 L (12.0-16.0) g/dL Hct 27.4 L (37-47) % Plt Count (130-400) K/uL BMP 03/28/20 03/29/20 15:31 01:29 Sodium 139 142 Potassium 3.9 3.6 Chloride 107 111 H Carbon Dioxide 25 25 BUN 22 H 15 Creatinine 0.98 0.78 Glucose 241 H 70 Calcium 8.6 8.4 L Cardiac Enzymes 03/28/20 Range/Units 15:31 Troponin I < 0.015 (0-0.045) ng/ml Liver Function 03/28/2018 Range/Units 15:31 01:29 Total Bilirubin 0.3 0.5 (0.2-1) mg/dl AST 16 18 (15-37) U/L ALT 10 L 8 L (12-78) U/L Alkaline Phosphatase 112 87 (45-117) U/L Albumin 2.2 L 1.8 L (3.4-5.0) gm/dl Medications Administered Current Inpatient Medications Acetaminophen (Acetaminophen 325 Mg Tab) 650 mg PO Q4H PRN PRN Reason: Pain or Fever Stop: 04/27/20 18:02 Anastrozole (Anastrozole 1 Mg Tab) 1 mg PO QAM [facility] Stop: 04/28/20 08:59 Last Admin: 03/29/20 09:03 Dose: 1 mg Documented by: Atorvastatin Calcium (Atorvastatin 40 Mg Tab) 40 mg PO HS RACHEL Stop: 04/27/20 20:59 Last Admin: 03/28/20 20:15 Dose: 40 mg Documented by: Budesonide (Budesonide Ec 3 Mg Cap) 9 mg PO QAM RACHEL Stop: 04/28/20 08:59 Last Admin: 03/29/20 09:04 Dose: 9 mg Documented by: Cholestyramine Resin (Cholestyramine Light 4 Gm Pkt) 4 gm PO BID@1000,2200 RACHEL Stop: 04/27/20 21:59 Last Admin: 03/28/20 20:50 Dose: 4 gm Documented by: Dextrose (Dextrose 50% 50 Ml Syringe) 25 - 50 ml IV UD PRN; Protocol PRN Reason: Hypoglycemia Protocol Stop: 04/27/20 18:02 Dicyclomine HCl (Dicyclomine Hcl 10 Mg Cap) 10 mg PO BID PRN PRN Reason: abdominal cramping Stop: 04/27/20 18:02 Last Admin: 03/29/20 09:03 Dose: 10 mg Documented by: Glucagon (Glucagon For Inj 1 Mg Vial) 1 mg SQ UD PRN; Protocol PRN Reason: Hypoglycemia Protocol Stop: 04/27/20 18:02 Glucose (Glucose 10 Tabs/Tube) 4 - 8 tabs PO UD PRN; Protocol PRN Reason: Hypoglycemia Protocol Stop: 04/27/20 18:02 Glucose (Glucose 40% Gel 15 Gm Tube) 15 - 30 gm PO UD PRN; Protocol PRN Reason: Hypoglycemia Protocol Stop: 04/27/20 18:02 Pantoprazole Sodium 40 mg/ (Dextrose) 100 mls @ 20 mls/hr IV Q5H RACHEL Stop: 04/27/20 15:58 Last Admin: 03/29/20 09:00 Dose: 8 mg/hr, 20 mls/hr Documented by: Insulin Aspart (Insulin Aspart 100 Units/Ml 3 Ml Pen) 0 units SC ACHS [facility] Stop: 04/27/20 18:02 Last Admin: 03/29/20 09:00 Dose: Not Given Documented by: Insulin Glargine (Insulin Glargine Solostar 100 Units/Ml 3 Ml Pen) 0 units SC BID [facility] Stop: 04/27/20 20:59 Last Admin: 03/29/20 09:00 Dose: Not Given Documented by: Levothyroxine Sodium (Levothyroxine Sodium 75 Mcg Tablet) 75 mcg PO DAILYBB [facility] Stop: 04/28/20 06:29 Last Admin: 03/29/20 05:43 Dose: 75 mcg Documented by: Miscellaneous (Carbohydrates For Hypoglycemia ) 15 - 30 gm PO UD PRN PRN Reason: Hypoglycemia Protocol Stop: 04/27/20 18:02 Multivitamins/Minerals (Calcium 600mg + Vit D 400 Iu Tab) 1 tab PO QAM [facility] Stop: 04/28/20 08:59 Last Admin: 03/29/20 09:03 Dose: 1 tab Documented by: Ondansetron HCl (Ondansetron Inj 2 Mg/Ml 2 Ml Vial) 4 mg IV Q6H PRN PRN Reason: Nausea Stop: 04/27/20 18:02 Pantoprazole Sodium (Pantoprazole 40 Mg Tab) 40 mg PO QAM [facility] Stop: 04/28/20 08:59 Polysaccharide Iron Complex (Iron Polysaccharide Complex 150 Mg Capsule) 150 mg PO BID [facility] Stop: 04/27/20 20:59 Last Admin: 03/29/20 09:03 Dose: 150 mg Documented by: Prednisone (Prednisone 5 Mg Tab) 5 mg PO DAILY [facility] Stop: 04/28/20 08:59 Last Admin: 03/29/20 09:03 Dose: 5 mg Documented by: Sertraline HCl (Sertraline Hcl 50 Mg Tablet) 50 mg PO QAM [facility] Stop: 04/28/20 08:59 Last Admin: 03/29/20 09:03 Dose: 50 mg Documented by: Trazodone HCl (Trazodone Hcl 50 Mg Tab) 50 mg PO HS PRN PRN Reason: Sleep Stop: 04/27/20 18:02 Vitamin D (Cholecalciferol 1,000 Units 25 Mcg Tab) 1,000 units PO QAM [facility] Stop: 04/28/20 08:59 Last Admin: 03/29/20 09:03 Dose: 1,000 units Documented by: (1) Hypothyroidism Hypothyroidism type: unspecified Qualified Code(s): E03.9 - Hypothyroidism, unspecified
[2020-03-29] MEDS: CHOLESTYRAMINE LIGHT 4 GM PKT PO SCH ×2 (12:22→20:52)
--- NOTE | 2020-03-29 12:33 | Anesthesiology Consultation ---
Date of Service March 29, 2020 Assessment & Plan Chart Review Chart Review: Acceptable Risk for Surgery Consults Requested none History Surgery Operation Date: 03/29/20 15:30 Proposed Procedures p Esophagogastroduodenoscopy Dr Jose Francisco Felton Height/Weight Height: 4 ft 10 in Weight: 71.2 kg Allergies Allergy/AdvReac Type Severity Reaction Status Date / Time aztreonam [From Azactam] Allergy Intermediate flushed Verified 03/28/20 17:02 /itching dorzolamide Allergy Unknown EYE LID Verified 03/28/20 17:02 SWELLING latanoprost Allergy Unknown EYE LID Verified 03/28/20 17:02 SWELLING Penicillins Allergy Unknown Rash Verified 03/28/20 17:02 thimerosal Allergy Unknown Unknown Verified 03/28/20 17:02 timolol Allergy Unknown EYE LID Verified 03/28/20 17:02 SWELLING empagliflozin AdvReac Severe Confusion Unverified 03/28/20 17:02 [From Jardiance] Medications Home Medications Medication Instructions Recorded Confirmed Last Taken calcium citrate-vitamin D3 1 tab PO QAM 05/12/18 03/28/20 03/28/20 08:00 [Citracal-D3 Petites] cholecalciferol (vitamin D3) 1,000 unit PO QAM 05/12/18 03/28/20 03/28/20 08:00 [Vitamin D3] levothyroxine 75 mcg PO DAILYBB 05/12/18 03/28/20 03/28/20 06:00 Probiotic Acidophilus Biobeads 1 tab PO TIDM 03/22/19 03/28/20 03/28/20 09:00 furosemide [Lasix] 20 mg PO QAM 03/22/19 03/28/20 03/28/20 08:00 sertraline [Zoloft] 50 mg PO QAM 03/22/19 03/28/20 03/28/20 09:00 anastrozole 1 mg PO QAM 07/21/19 03/28/20 03/28/20 08:00 atorvastatin 40 mg PO HS 07/21/19 03/28/20 03/07/20 potassium chloride [Klor-Con M20] 20 meq PO BID 07/21/19 03/28/20 03/28/20 08:00 Lantus Solostar U-100 Insulin 22 unit SUBCUT QAM 01/01/20 03/28/20 03/28/20 09:00 trazodone 50 mg PO HS PRN 01/01/20 03/28/20 03/07/20 polysaccharide iron complex 150 mg PO BID 01/31/20 03/28/20 03/28/20 08:00 [Ferrex 150] budesonide 9 mg PO QAM 02/15/20 03/28/20 03/28/20 08:00 fluocinonide 1 applic TOPICAL BID PRN 02/15/20 03/28/20 Unknown pantoprazole 40 mg PO QAM 02/15/20 03/28/20 03/28/20 08:00 triamcinolone acetonide 1 applic TOPICAL BID PRN 02/15/20 03/28/20 Unknown dicyclomine 10 mg PO BID PRN 03/08/20 03/28/20 03/28/20 08:00 prednisone 5 mg PO DAILY #30 tab 03/11/20 03/28/20 03/28/20 08:00 cholestyramine (with sugar) 1 ea PO BID 03/28/20 03/28/20 03/28/20 08:00 [Questran] ustekinumab [Stelara] 0 mg SUBCUT Q8WK 03/28/20 03/28/20 Unknown warfarin 2 mg PO 5XWK 03/28/20 03/28/20 03/28/20 08:00 warfarin [Coumadin] 4 mg PO MOFR 03/28/20 03/28/20 03/25/20 Active Medications Generic Name Dose Route Start Last Admin Trade Name Freq PRN Reason Stop Dose Admin Anastrozole 1 mg 03/29/20 09:00 03/29/20 09:03 Anastrozole 1 Mg Tab PO 04/28/20 08:59 1 mg QAM RACHEL Administration Atorvastatin Calcium 40 mg 03/28/20 21:00 03/28/20 20:15 Atorvastatin 40 Mg Tab PO 04/27/20 20:59 40 mg HS RACHEL Administration Budesonide 9 mg 03/29/20 09:00 03/29/20 09:04 Budesonide Ec 3 Mg Cap PO 04/28/20 08:59 9 mg QAM RACHEL Administration Cholestyramine Resin 4 gm 03/28/20 22:00 03/29/20 12:22 Cholestyramine Light 4 Gm Pkt PO 10/17/20 21:59 Not Given BID@1000,2200 RACHEL Dicyclomine HCl 10 mg 03/28/20 18:03 03/29/20 09:03 Dicyclomine Hcl 10 Mg Cap PO 04/27/20 18:02 10 mg BID PRN Administration abdominal cramping Pantoprazole Sodium 40 mg/ 100 mls @ 20 mls/hr 03/28/20 15:59 03/29/20 09:00 Dextrose IV 04/27/20 15:58 8 mg/hr Q5H RACHEL 20 mls/hr Administration 8 MG/HR Insulin Aspart 0 units 03/28/20 18:03 03/29/20 12:22 Insulin Aspart 100 Units/Ml 3 Ml Pen SC 04/27/20 18:02 Not Given ACHS RACHEL Insulin Glargine 0 units 03/28/20 21:00 03/29/20 09:00 Insulin Glargine Solostar 100 Units/Ml 3 Ml Pen SC 04/27/20 20:59 Not Given BID RACHEL Levothyroxine Sodium 75 mcg 03/29/20 06:30 03/29/20 05:43 Levothyroxine Sodium 75 Mcg Tablet PO 04/28/20 06:29 75 mcg DAILYBB RACHEL Administration Multivitamins/Minerals 1 tab 03/29/20 09:00 03/29/20 09:03 Calcium 600mg + Vit D 400 Iu Tab PO 04/28/20 08:59 1 tab QAM RACHEL Administration Polysaccharide Iron Complex 150 mg 03/28/20 21:00 03/29/20 09:03 Iron Polysaccharide Complex 150 Mg Capsule PO 04/27/20 20:59 150 mg BID RACHEL Administration Prednisone 5 mg 03/29/20 09:00 03/29/20 09:03 Prednisone 5 Mg Tab PO 04/28/20 08:59 5 mg DAILY RACHEL Administration Sertraline HCl 50 mg 03/29/20 09:00 03/29/20 09:03 Sertraline Hcl 50 Mg Tablet PO 04/28/20 08:59 50 mg QAM RACHEL Administration Vitamin D 1,000 units 03/29/20 09:00 03/29/20 09:03 Cholecalciferol 1,000 Units 25 Mcg Tab PO 04/28/20 08:59 1,000 units QAM RACHEL Administration Past Medical History Medical History Acute hyponatremia Acute kidney injury Anemia Breast cancer, right 2012--SX & RADIATION, NO CHEMO C. 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) "Abnormal right breast mammogram Biopsy-positive for DCIS Status post lumpectomy with no residual tumor stage pTis NXMX Estrogen receptor positive, progesterone receptor positive Status post completion of radiation therapy 02/22/2013 received 3850 cGy utilizing accelerated partial breast treatment " Leukocytosis (leucocytosis) Obesity (BMI 30-39.9) Pancolitis Severe sepsis SIRS (systemic inflammatory response syndrome) UTI (urinary tract infection) Past Family History Family History Mother Family history of diabetes mellitus Heart disease Father Family history of diabetes mellitus Heart disease Sister Family history of diabetes mellitus Grandmother Family history of diabetes mellitus PATERNAL Uterine cancer Sister Crohn's disease Past Surgical History Surgical History H/O breast biopsy 2012--RIGHT MALIGNANT H/O lumpectomy History of appendectomy History of colonoscopy History of lumpectomy of right breast "+ HERBIE ER/CT + in 10/2012 s/p RT" History of tonsillectomy and adenoidectomy Hx of appendectomy S/P insertion of IVC (inferior vena caval) filter 03/29/[address] BUSTAMANTE Status post glaucoma surgery BILT Social History Smoking Status: Never smoker Hx Alcohol Use: No Hx Substance Use: No substance use type: does not use Physical Exam Vital Signs Last Vital Signs Temp 37.1 C 03/29/20 11:29 Pulse 97 H 03/29/20 11:29 Resp 17 03/29/20 11:29 BP 131/74 03/29/20 11:29 Pulse Ox 96 03/29/20 11:29 Testing Laboratory Results 03/29/20 07:55 03/29/20 01:29 PT 20.7 Seconds (9.0-12.0) H 03/29/20 01:29 INR 2.0 (0.9-1.1) H 03/29/20 01:29 APTT 28.9 Seconds (21.0-31.0) 03/28/20 15:31 Blood Type AB Negative 03/28/20 15:33 Antibody Screen NEGATIVE 03/28/20 15:33 03/29/20 03/29/20 11:35 07:05 POC Glucose 100 H 79
--- NOTE | 2020-03-29 13:47 | GI REPORT ---
Patient Name: Daniela Carter Procedure Date: 03/29/2020 12:51 PM Date of : 1955 Admit Type: Inpatient Age: 64 Gender: Female Attending MD: Alonso Felton MD Procedure: Upper GI endoscopy Providers: Alonso Felton MD Referring MD: Andrea Bates M.d. Indications: Melena Medicines: See the Anesthesia note for documentation of the administered medications Complications: No immediate complications. Estimated Blood Loss: Estimated blood loss: none. Procedure: Pre-Anesthesia Assessment: - Prior to the procedure, a History and Physical was performed, and patient medications, allergies and sensitivities were reviewed. The patient's tolerance of previous anesthesia was reviewed. - The risks and benefits of the procedure and the sedation options and risks were discussed with the patient. All questions were answered and informed consent was obtained. - Patient identification and proposed procedure were verified prior to the procedure by the physician and the nurse. The procedure was verified in the pre-procedure area. - Pre-procedure physical examination revealed no contraindications to sedation. - After reviewing the risks and benefits, the patient was deemed in satisfactory condition to undergo the procedure. After obtaining informed consent, the endoscope was passed under direct vision. Throughout the procedure, the patient's blood pressure, pulse, and oxygen saturations were monitored continuously. The Endoscope was introduced through the mouth, and advanced to the third part of duodenum. The upper GI endoscopy was accomplished without difficulty. The patient tolerated the procedure well. Findings: The esophagus was normal. The stomach was normal. The examined duodenum was normal. The cardia and gastric fundus were normal on retroflexion. Impression: - Normal esophagus. - Normal stomach. - Normal examined duodenum. - No specimens collected. Recommendation: - Return patient to [facility] for [facility] care. Alonso Felton M.D. Alonso Felton MD 03/29/2020 1:46:37 PM This report has been signed electronically. Note Initiated On: 03/29/2020 12:51 PM Number of Addenda: 0 I attest to the content of the Intraoperative Record and orders documented therein, exceptions below {[id number]}
[2020-03-29] MEDS ORDERED: PROPOFOL IV EMULSION 10 MG/ML 20 ML VIAL IV ONE (13:58)
[2020-03-29] MEDS ORDERED: LIDOCAINE HCL 2% 2 ML VIAL/AMP(20MG/ML) INFIL ONE (13:58)
--- NOTE | 2020-03-29 14:15 | Anesthesiology Progress Note ---
Date of Service March 29, 2020 Anesthesia Post Procedure Vital Signs Vital Signs: Temp Pulse Pulse Pulse Resp BP BP 03/29/20 13:59 83 16 111/66 03/29/20 13:45 78 16 102/63 03/29/20 12:35 37.4 C 95 H 18 140/103 H 03/29/20 11:29 37.1 C 97 H 17 131/74 03/29/20 08:35 81 03/29/20 07:05 36.6 C 87 18 128/79 03/29/20 05:21 84 03/29/20 03:16 37.0 C 81 17 113/68 03/28/20 23:04 36.7 C 86 18 123/71 03/28/20 20:35 36.7 C 80 18 132/86 03/28/20 20:10 36.8 C 84 18 125/74 03/28/20 19:45 36.8 C 83 18 124/79 03/28/20 19:10 36.9 C 90 90 20 131/80 131/80 03/28/20 18:40 89 20 131/79 03/28/20 18:25 36.9 C 94 H 20 135/80 03/28/20 18:08 36.9 C 81 20 131/83 03/28/20 17:59 36.9 C 20 156/84 H 03/28/20 16:45 91 H 19 03/28/20 16:31 96 H 33 H 134/62 03/28/20 16:30 95 H 25 H 03/28/20 16:15 101 H 23 03/28/20 16:01 105 H 31 H 03/28/20 16:00 104 H 25 H 131/78 03/28/20 15:53 101 H 15 03/28/20 15:51 101 H 28 H 118/68 03/28/20 14:57 36.8 C 123 H 18 134/84 Pulse Ox 03/29/20 13:59 96 03/29/20 13:45 98 03/29/20 12:35 96 03/29/20 11:29 96 03/29/20 08:35 03/29/20 07:05 96 03/29/20 05:21 03/29/20 03:16 97 03/28/20 23:04 92 03/28/20 20:35 96 03/28/20 20:10 95 03/28/20 19:45 97 03/28/20 19:10 98 03/28/20 18:40 98 03/28/20 18:25 97 03/28/20 18:08 98 03/28/20 17:59 96 03/28/20 16:45 98 03/28/20 16:31 96 03/28/20 16:30 100 03/28/20 16:15 97 03/28/20 16:01 99 03/28/20 16:00 98 03/28/20 15:53 98 03/28/20 15:51 99 03/28/20 14:57 99 Transfer of Care Handoff Completed per policy Notes Mental Status: alert / awake / arousable and participated in evaluation Patient Amnestic to Procedure: Yes Nausea / Vomiting: adequately controlled Pain: adequately controlled Airway Patency, RR, SpO2: stable & adequate BP & HR: stable & adequate Hydration State: stable & adequate Anesthetic Complications: no major complications apparent
[2020-03-29 15:09] LABS: Hematocrit (blood only) 31.7 % (37-47); Hemoglobin 9.7 g/dL (12.0-16.0)
[2020-03-29] MEDS: ATORVASTATIN 40 MG TAB PO SCH (20:14)
[2020-03-30] MEDS: PANTOprazole 40 MG in DEXTROSE 5% 100 ML IV SCH ×5 (03:47→23:02)
[2020-03-30] MEDS: LEVOTHYROXINE SODIUM 75 MCG TABLET PO SCH (06:00)
[2020-03-30] MEDS: BUDESONIDE EC 3 MG CAP PO SCH (08:08)
[2020-03-30] MEDS: IRON POLYSACCHARIDE COMPLEX 150 MG CAPSULE PO SCH ×2 (08:08→20:19)
[2020-03-30] MEDS: predniSONE 5 MG TAB PO SCH (08:08)
[2020-03-30] MEDS: SERTRALINE HCL 50 MG TABLET PO SCH (08:08)
[2020-03-30] MEDS: CALCIUM 600MG + VIT D 400 IU TAB PO SCH (08:08)
[2020-03-30] MEDS: CHOLECALCIFEROL 1,000 UNITS 25 MCG TAB PO SCH (08:09)
[2020-03-30] MEDS: ANASTROZOLE 1 MG TAB PO SCH (08:09)
[2020-03-30] MEDS: INSULIN ASPART 100 UNITS/ML 3 ML PEN SC SCH ×4 (08:53→21:07)
[2020-03-30] MEDS: INSULIN GLARGINE SOLOSTAR 100 UNITS/ML 3 ML PEN SC SCH (08:54)
[2020-03-30] MEDS: CHOLESTYRAMINE LIGHT 4 GM PKT PO SCH ×2 (10:42→21:09)
[2020-03-30] MEDS ORDERED: FLUOCINONIDE 0.05% OINT 15 GM TUBE EXT PRN (10:49)
[2020-03-30] MEDS ORDERED: TRIAMCINOLONE ACET 0.1% CR 15 GM TUBE TOP PRN (10:49)
--- NOTE | 2020-03-30 10:59 | Hospitalist Progress Note ---
Date of Service March 30, 2020 Assessment & Plan (1) Acute GI bleeding: This is a 64-year-old female who has significant past medical history of insulin-dependent T2DM, history of chronic LLE DVT/PE anticoagulated with warfarin and ivcf in place, HTN, HLD, hypothyroidism, CKD stage III, diabetic neuropathy, recurrent C. difficile, Crohn's disease who comes to ER secondary to melena and weakness x3 days. Upper GI bleed is complicated by use of Coumadin Denies any use of NSAID use Hemoglobin on admission was 7.8 and received 1 unit of blood transfusion No prior history of EGD Has been on n.p.o. and intravenous Protonix drip Monitor H&H-0.5 as on 03/29/2020 Appreciate GI input and recommendation EGD showed normal esophagus, normal stomach and normal examined duodenum Denies any more symptoms and hemoglobin remained stable at 9.7 as of last afternoon Continue Protonix drip for now We will advance diet as tolerated and monitor CBC (2) Acute on chronic blood loss anemia: As above History of recurrent rectal bleed History of Crohn's disease Status post colonoscopy We will monitor CBC (3) Weakness: Likely secondary to symptoms of anemia (4) Inflammatory bowel disease: History of Crohn's disease Does not have any acute exacerbation now (5) 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: hx of chronic DVT to left popliteal vein/PE anticoagulated on warfarin Status post IVC filter INR 2.1, hold warfarin Discussed with attending and GI who recommend holding warfarin, no indication for reversal at this point Will restart Coumadin (6) CKD (chronic kidney disease), stage III: baseline cr 1.1 bun/cr stable monitor (7) Diabetes: A1c 8.9 02/01/2020 lantus/novolog per protocol home regimen is tresiba 22units daily (8) Hypothyroidism: Continue levothyroxine (9) Depression: Mood stable continue Zoloft (10) DVT prophylaxis: SCD/TEDS hold warfarin in setting of probable GIB Disposition: Admit to tele Follow up: PCP Dr. Templeton upon discharge along with appropriate GI follow up Likely to be home tomorrow Admission and Anticipated Discharge Date Admission Date: March 28, 2020 Subjective 03/29/2020 The patient was seen and examined in telemetry unit She complains to have weakness, shortness of breath on exertion and ongoing black tarry stools while she has been on Coumadin She feels a little bit better and denies any other significant symptoms 03/30/2020 Patient was seen and examined in telemetry unit She is a status post EGD which came out to be unremarkable We will start diet as tolerated She remains free of any symptoms except weakness Review of Systems Review of Systems: All systems reviewed and are unremarkable except as noted below Cardiovascular: + edema (Bilateral 1+ leg edema) Gastrointestinal: no abdominal pain (Mild epigastric discomfort), no bloating, no nausea and no vomiting Physical Exam Physical Exam: Lying in bed comfortably Constitutional: well developed, well nourished and + ill appearing; no acute distress Eyes: PERRL, conjunctivae normal, anicteric sclerae ENMT: external ear and nose normal, oropharynx normal Neck: trachea midline, no thyromegaly Respiratory: normal respiratory effort; no respiratory distress Auscultat ion: lungs clear to auscultation bilaterally Cardiovascular: Rate/Rhythm: regular rate and regular rhythm Heart Sounds: no murmur Extremities: + edema (Bilateral leg edema about 1+) Gastrointestinal (Abdomen): Inspection/Auscultation: abdomen normal to inspection and normal bowel sounds; abdomen not distended Percussion/Palpation: abdomen soft; abdomen nontender (Minimally tender epigastrium) and no guarding Musculoskeletal: No acute arthritis involving any joints Neurologic: moves all extremities; no focal motor deficits Psychiatric: A+Ox3, euthymic affect Lymphatic: no cervical or axillary lymphadenopathy Results & Data Results & Data ([facility]) Vital Signs (Past 12 Hours) Vital Signs Temp Pulse Resp BP Pulse Ox 03/30/20 07:27 36.6 C 85 18 117/74 94 03/30/20 03:42 36.4 C L 73 16 115/66 96 03/29/20 23:36 36.6 C 75 18 122/70 96 Laboratory Results Short CBC 03/29/20 Range/Units 14:53 Hgb 9.7 L (12.0-16.0) g/dL Hct 31.7 L (37-47) % Medications Administered Current Inpatient Medications Acetaminophen (Acetaminophen 325 Mg Tab) 650 mg PO Q4H PRN PRN Reason: Pain or Fever Stop: 04/27/20 18:02 Anastrozole (An[facility]zole 1 Mg Tab) [facility] [place]: 04/28/20 08:59 Last Admin: 03/30/20 08:09 Dose: 1 mg Documented by: Atorvastatin Calcium (Atorvastatin 40 Mg Tab) 40 mg PO HS [facility] Stop: 04/27/20 20:59 Last Admin: 03/29/20 20:14 Dose: 40 mg Documented by: Budesonide (Budesonide Ec 3 Mg Cap) 9 mg PO QAM [facility] Stop: 04/28/20 08:59 Last Admin: 03/30/20 08:08 Dose: 9 mg Documented by: Cholestyramine Resin (Cholestyramine Light 4 Gm Pkt) 4 gm PO BID@1000,2200 [facility] Stop: 04/27/20 21:59 Last Admin: 03/30/20 10:42 Dose: 4 gm Documented by: Dextrose (Dextrose 50% 50 Ml Syringe) 25 - 50 ml IV UD PRN; Protocol PRN Reason: Hypoglycemia Protocol Stop: 04/27/20 18:02 Dicyclomine HCl (Dicyclomine Hcl 10 Mg Cap) 10 mg PO BID PRN PRN Reason: abdominal cramping Stop: 04/27/20 18:02 Last Admin: 03/29/20 09:03 Dose: 10 mg Documented by: Fluocinonide (Fluocinonide 0.05% Oint 15 Gm Tube) 1 appln EXT BID PRN PRN Reason: Rash Stop: 04/29/20 10:48 Furosemide (Furosemide 20 Mg Tab) 20 mg PO QAM [facility] Stop: 04/29/20 10:59 Glucagon (Glucagon For Inj 1 Mg Vial) 1 mg SQ UD PRN; Protocol PRN Reason: Hypoglycemia Protocol Stop: 04/27/20 18:02 Glucose (Glucose 10 Tabs/Tube) 4 - 8 tabs PO UD PRN; Protocol PRN Reason: Hypoglycemia Protocol Stop: 04/27/20 18:02 Glucose (Glucose 40% Gel 15 Gm Tube) 15 - 30 gm PO UD PRN; Protocol PRN Reason: Hypoglycemia Protocol Stop: 04/27/20 18:02 Pantoprazole Sodium 40 mg/ (Dextrose) 100 mls @ 20 mls/hr IV Q5H [facility] Stop: 04/27/20 15:58 Last Admin: 03/30/20 08:26 Dose: 8 mg/hr, 20 mls/hr Documented by: Insulin Aspart (Insulin Aspart 100 Units/Ml 3 Ml Pen) 0 units SC ACHS [facility] Stop: 04/27/20 18:02 Last Admin: 03/30/20 08:53 Dose: Not Given Documented by: Insulin Glargine (Insulin Glargine Solostar 100 Units/Ml 3 Ml Pen) 0 units SC BID [facility] Stop: 04/27/20 20:59 Last Admin: 03/30/20 08:54 Dose: Not Given Documented by: Insulin Glargine (Insulin Glargine Solostar 100 Units/Ml 3 Ml Pen) 22 units SQ QAM [facility] Stop: 04/30/20 08:59 Levothyroxine Sodium (Levothyroxine Sodium 75 Mcg Tablet) 75 mcg PO DAILYBB [facility] Stop: 04/28/20 06:29 Last Admin: 03/30/20 06:00 Dose: 75 mcg Documented by: Miscellaneous (Carbohydrates For Hypoglycemia ) 15 - 30 gm PO UD PRN PRN Reason: Hypoglycemia Protocol Stop: 04/27/20 18:02 Multivitamins/Minerals (Calcium 600mg + Vit D 400 Iu Tab) 1 tab PO QAM [facility] Stop: 04/28/20 08:59 Last Admin: 03/30/20 08:08 Dose: 1 tab Documented by: Ondansetron HCl (Ondansetron Inj 2 Mg/Ml 2 Ml Vial) 4 mg IV Q6H PRN PRN Reason: Nausea Stop: 04/27/20 18:02 Pantoprazole Sodium (Pantoprazole 40 Mg Tab) 40 mg PO QAM [facility] Stop: 04/28/20 08:59 Polysaccharide Iron Complex (Iron Polysaccharide Complex 150 Mg Capsule) 150 mg PO BID [facility] Stop: 04/27/20 20:59 Last Admin: 03/30/20 08:08 Dose: 150 mg Documented by: Potassium Chloride (Potassium Chloride 20 Meq Tabcr) 20 meq PO BID [facility] Stop: 04/29/20 20:59 Prednisone (Prednisone 5 Mg Tab) 5 mg PO DAILY [facility] Stop: 04/28/20 08:59 Last Admin: 03/30/20 08:08 Dose: 5 mg Documented by: Sertraline HCl (Sertraline Hcl 50 Mg Tablet) 50 mg PO QAM [facility] Stop: 04/28/20 08:59 Last Admin: 03/30/20 08:08 Dose: 50 mg Documented by: Trazodone HCl (Trazodone Hcl 50 Mg Tab) 50 mg PO HS PRN PRN Reason: Sleep Stop: 04/27/20 18:02 Triamcinolone Acetonide (Triamcinolone Acet 0.1% Cr 15 Gm Tube) 1 appln TOP BID PRN PRN Reason: Rash Stop: 04/29/20 10:48 Vitamin D (Cholecalciferol 1,000 Units 25 Mcg Tab) 1,000 units PO QAM [facility] Stop: 04/28/20 08:59 Last Admin: 03/30/20 08:09 Dose: 1,000 units Documented by: Warfarin Sodium (Warfarin Sod 2 Mg Tab) 2 mg PO [id number] [facility] Stop: 04/29/20 10:59 Warfarin Sodium (Warfarin Sod 4 Mg Tab) 4 mg PO MOFR [facility] Stop: 05/01/20 10:48 (1) Hypothyroidism Hypothyroidism type: unspecified Qualified Code(s): E03.9 - Hypothyroidism, unspecified
[2020-03-30] MEDS: FUROSEMIDE 20 MG TAB PO SCH (12:15)
[2020-03-30] MEDS ORDERED: WARFARIN SOD 2 MG TAB PO SCH (16:00)
[2020-03-30] MEDS: POTASSIUM CHLORIDE 20 MEQ TABCR PO SCH (20:18)
[2020-03-30] MEDS: ATORVASTATIN 40 MG TAB PO SCH (20:20)
[2020-03-31] MEDS: PANTOprazole 40 MG in DEXTROSE 5% 100 ML IV SCH ×2 (03:46→09:30)
[2020-03-31] MEDS: LEVOTHYROXINE SODIUM 75 MCG TABLET PO SCH (05:49)
[2020-03-31 07:15] LABS: Basophils # (auto) 0.02 K/uL (0-0.2); Basophils % (auto) 0.3 %; Eosinophils # (auto) 0.33 K/uL (0-0.5); Eosinophils % (auto) 4.8 %; Hematocrit (blood only) 30.9 % (37-47); Hemoglobin 9.4 g/dL (12.0-16.0); Immature Granulocytes % (auto) 1.5 %; Lymphocytes # (auto) 1.16 K/uL (1.2-3.4); Mean Corpuscular Hemoglobin 25.8 pg (25-34); Mean Corpuscular Hgb Conc 30.4 g/dL (32-36); Mean Corpuscular Volume 84.9 fL (80-100); Mean Platelet Volume 9.1 fL (7.4-10.4); Monocytes # (auto) 0.63 K/uL (0.11-0.59); Monocytes % (auto) 9.3 %; Neutrophils # (auto) 4.57 K/uL (1.4-6.5); Neutrophils % (auto) 67.1 %; Platelet Count 472 K/uL (130-400); RDW Coefficient of Variation 17.2 % (11.5-14.5); RDW Standard Deviation 52.8 fL (36.4-46.3); Red Blood Count 3.64 M/uL (4.2-5.4); White Blood Count 6.81 K/uL (4.8-10.8)
[2020-03-31 07:27] LABS: INR 1.6 (0.9-1.1); Prothrombin Time 16.5 Seconds (9.0-12.0)
[2020-03-31 07:44] LABS: BUN Creatinine Ratio 14.7 (10-20); Calcium 8.3 mg/dl (8.5-10.1); Creatinine Clr Calc Pharmacy 47.9 ml/min; Est GFR (Non-African American) 61.3; Potassium 3.9 mmol/L (3.5-5.1)
[2020-03-31] MEDS: INSULIN ASPART 100 UNITS/ML 3 ML PEN SC SCH ×2 (07:47→11:48)
[2020-03-31] MEDS: POTASSIUM CHLORIDE 20 MEQ TABCR PO SCH (08:33)
[2020-03-31] MEDS: IRON POLYSACCHARIDE COMPLEX 150 MG CAPSULE PO SCH (08:33)
[2020-03-31] MEDS: SERTRALINE HCL 50 MG TABLET PO SCH (08:34)
[2020-03-31] MEDS: BUDESONIDE EC 3 MG CAP PO SCH (08:34)
[2020-03-31] MEDS: FUROSEMIDE 20 MG TAB PO SCH (08:34)
[2020-03-31] MEDS: predniSONE 5 MG TAB PO SCH (08:34)
[2020-03-31] MEDS: CHOLECALCIFEROL 1,000 UNITS 25 MCG TAB PO SCH (08:34)
[2020-03-31] MEDS: ANASTROZOLE 1 MG TAB PO SCH (08:34)
[2020-03-31] MEDS: CALCIUM 600MG + VIT D 400 IU TAB PO SCH (08:34)
[2020-03-31] MEDS ORDERED: INSULIN GLARGINE SOLOSTAR 100 UNITS/ML 3 ML PEN SQ SCH (09:00)
--- NOTE | 2020-03-31 10:25 | Hospitalist Progress Note ---
Date of Service March 31, 2020 Assessment & Plan (1) Acute GI bleeding: This is a 64-year-old female who has significant past medical history of insulin-dependent T2DM, history of chronic LLE DVT/PE anticoagulated with warfarin and ivcf in place, HTN, HLD, hypothyroidism, CKD stage III, diabetic neuropathy, recurrent C. difficile, Crohn's disease who comes to ER secondary to melena and weakness x3 days. Upper GI bleed is complicated by use of Coumadin Denies any use of NSAID use Hemoglobin on admission was 7.8 and received 1 unit of blood transfusion No prior history of EGD Has been on n.p.o. and intravenous Protonix drip Monitor H&H-0.5 as on 03/29/2020 Appreciate GI input and recommendation EGD showed normal esophagus, normal stomach and normal examined duodenum Denies any more symptoms and hemoglobin remained stable at 9.7 as of last afternoon Hemoglobin remains stable at 9.4 as of 03/31/2020 She has been feeling a lot better and is ambulating in the room without any difficulties Be discharged home this afternoon (2) Acute on chronic blood loss anemia: As above History of recurrent rectal bleed History of Crohn's disease Status post colonoscopy We will monitor CBC-hemoglobin 9.4 (3) Weakness: Likely secondary to symptoms of anemia (4) Inflammatory bowel disease: History of Crohn's disease Does not have any acute exacerbation now (5) 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: hx of chronic DVT to left popliteal vein/PE anticoagulated on warfarin Status post IVC filter INR 2.1, hold warfarin Discussed with attending and GI who recommend holding warfarin, no indication for reversal at this point Will restart Coumadin-advised to have follow-up appointment with coagulation clinic (6) CKD (chronic kidney disease), stage III: baseline cr 1.1 bun/cr stable monitor (7) Diabetes: A1c 8.9 02/01/2020 lantus/novolog per protocol home regimen is tresiba 22units daily (8) Hypothyroidism: Continue levothyroxine (9) Depression: Mood stable continue Zoloft (10) DVT prophylaxis: SCD/TEDS hold warfarin in setting of probable GIB Disposition: Admit to tele Follow up: PCP Dr. Templeton upon discharge along with appropriate GI follow up Discharged home this afternoon Admission and Anticipated Discharge Date Admission Date: March 28, 2020 Subjective 03/29/2020 The patient was seen and examined in telemetry unit She complains to have weakness, shortness of breath on exertion and ongoing black tarry stools while she has been on Coumadin She feels a little bit better and denies any other significant symptoms 03/30/2020 Patient was seen and examined in telemetry unit She is a status post EGD which came out to be unremarkable We will start diet as tolerated She remains free of any symptoms except weakness 03/31/2020 The patient was seen and examined in telemetry unit She she has been stable without any symptoms Denies any more bleeding and/or black tarry stool Has been ambulating without any difficulties Will be discharged home this afternoon Review of Systems Review of Systems: All systems reviewed and are unremarkable except as noted below Cardiovascular: + edema (Much improved now only trace bilateral edema) Physical Exam Physical Exam: Lying in bed comfortably Constitutional: well developed, well nourished and + ill appearing; no acute distress Eyes: PERRL, conjunctivae normal, anicteric sclerae ENMT: external ear and nose normal, oropharynx normal Neck: trachea midline, no thyromegaly Respiratory: normal respiratory effort; no respiratory distress Ausc ultation: lungs clear to auscultation bilaterally Cardiovascular: Rate/Rhythm: regular rate and regular rhythm Heart Sounds: no murmur Extremities: + edema (Trace edema bilaterally) Gastrointestinal (Abdomen): Inspection/Auscultation: abdomen normal to inspection and normal bowel sounds; abdomen not distended Percussion/Palpation: abdomen soft; abdomen nontender (Minimally tender epigastrium) and no guarding Musculoskeletal: Colitis involving any joint Neurologic: moves all extremities; no focal motor deficits Psychiatric: A+Ox3, euthymic affect Lymphatic: no cervical or axillary lymphadenopathy Results & Data Results & Data ([facility]) Vital Signs (Past 12 Hours) Vital Signs Temp Pulse Resp BP Pulse Ox 03/31/20 07:30 36.7 C 79 16 116/70 97 03/31/20 04:25 36.4 C L 71 16 122/69 97 Laboratory Results Short CBC 03/31/20 Range/Units 06:38 WBC 6.81 (4.8-10.8) K/uL Hgb 9.4 L (12.0-16.0) g/dL Hct 30.9 L (37-47) % Plt Count 472 H (130-400) K/uL BMP 03/31/20 06:38 Sodium 141 Potassium 3.9 Chloride 109 H Carbon Dioxide 26 BUN 14 Creatinine 0.97 Glucose 109 H Calcium 8.3 L Medications Administered Current Inpatient Medications Acetaminophen (Acetaminophen 325 Mg Tab) 650 mg PO Q4H PRN PRN Reason: Pain or Fever Stop: 04/27/20 18:02 Anastrozole (Anastrozole 1 Mg Tab) 1 mg PO QAM [facility] Stop: 04/28/20 08:59 Last Admin: 03/31/20 08:34 Dose: 1 mg Documented by: Atorvastatin Calcium (Atorvastatin 40 Mg Tab) 40 mg PO HS RACHEL Stop: 04/27/20 20:59 Last Admin: 03/30/20 20:20 Dose: 40 mg Documented by: Budesonide (Budesonide Ec 3 Mg Cap) 9 mg PO QAM [facility] Stop: 04/28/20 08:59 Last Admin: 03/31/20 08:34 Dose: 9 mg Documented by: Cholestyramine Resin (Cholestyramine Light 4 Gm Pkt) 4 gm PO BID@1000,2200 [facility] Stop: 04/27/20 21:59 Last Admin: 03/30/20 21:09 Dose: 4 gm Documented by: Dextrose (Dextrose 50% 50 Ml Syringe) 25 - 50 ml IV UD PRN; Protocol PRN Reason: Hypoglycemia Protocol Stop: 04/27/20 18:02 Dicyclomine HCl (Dicyclomine Hcl 10 Mg Cap) 10 mg PO BID PRN PRN Reason: abdominal cramping Stop: 04/27/20 18:02 Last Admin: 03/29/20 09:03 Dose: 10 mg Documented by: Furosemide (Furosemide 20 Mg Tab) 20 mg PO QAM [facility] Stop: 04/29/20 10:59 Last Admin: 03/31/20 08:34 Dose: 20 mg Documented by: Glucagon (Glucagon For Inj 1 Mg Vial) 1 mg SQ UD PRN; Protocol PRN Reason: Hypoglycemia Protocol Stop: 04/27/20 18:02 Glucose (Glucose 10 Tabs/Tube) 4 - 8 tabs PO UD PRN; Protocol PRN Reason: Hypoglycemia Protocol Stop: 04/27/20 18:02 Glucose (Glucose 40% Gel 15 Gm Tube) 15 - 30 gm PO UD PRN; Protocol PRN Reason: Hypoglycemia Protocol Stop: 04/27/20 18:02 Pantoprazole Sodium 40 mg/ (Dextrose) 100 mls @ 20 mls/hr IV Q5H [facility] Stop: 04/27/20 15:58 Last Admin: 03/31/20 09:30 Dose: 8 mg/hr, 20 mls/hr Documented by: Insulin Aspart (Insulin Aspart 100 Units/Ml 3 Ml Pen) 0 units SC ACHS [facility] Stop: 04/27/20 18:02 Last Admin: 03/31/20 07:47 Dose: 2 units Documented by: Insulin Glargine (Insulin Glargine Solostar 100 Units/Ml 3 Ml Pen) 22 units SQ QAM [facility] Stop: 04/30/20 08:59 Last Admin: 03/31/20 08:35 Dose: 22 units Documented by: Levothyroxine Sodium (Levothyroxine Sodium 75 Mcg Tablet) 75 mcg PO DAILYBB [facility] Stop: 04/28/20 06:29 Last Admin: 03/31/20 05:49 Dose: 75 mcg Documented by: Miscellaneous (Carbohydrates For Hypoglycemia ) 15 - 30 gm PO UD PRN PRN Reason: Hypoglycemia Protocol Stop: 04/27/20 18:02 Multivitamins/Minerals (Calcium 600mg + Vit D 400 Iu Tab) 1 tab PO QAM [facility] Stop: 04/28/20 08:59 Last Admin: 03/31/20 08:34 Dose: 1 tab Documented by: Ondansetron HCl (Ondansetron Inj 2 Mg/Ml 2 Ml Vial) 4 mg IV Q6H PRN PRN Reason: Nausea Stop: 04/27/20 18:02 Pantoprazole Sodium (Pantoprazole 40 Mg Tab) 40 mg PO QAM [facility] Stop: 04/28/20 08:59 Polysaccharide Iron Complex (Iron Polysaccharide Complex 150 Mg Capsule) 150 mg PO BID [facility] Stop: 04/27/20 20:59 Last Admin: 03/31/20 08:33 Dose: 150 mg Documented by: Potassium Chloride (Potassium Chloride 20 Meq Tabcr) 20 meq PO BID [facility] Stop: 04/29/20 20:59 Last Admin: 03/31/20 08:33 Dose: 20 meq Documented by: Prednisone (Prednisone 5 Mg Tab) 5 mg PO DAILY [facility] Stop: 04/28/20 08:59 Last Admin: 03/31/20 08:34 Dose: 5 mg Documented by: Sertraline HCl (Sertraline Hcl 50 Mg Tablet) [facility] [place]: 04/28/20 08:59 Last Admin: 03/31/20 08:34 Dose: 50 mg Documented by: Trazodone HCl (Trazodone Hcl 50 Mg Tab) 50 mg PO HS PRN PRN Reason: Sleep Stop: 04/27/20 18:02 Triamcinolone Acetonide (Triamcinolone Acet 0.1% Cr 15 Gm Tube) 1 appln TOP BID PRN PRN Reason: Rash-affected area(s) Stop: 04/29/20 10:48 Vitamin D (Cholecalciferol 1,000 Units 25 Mcg Tab) 1,000 units PO [facility] Stop: 04/28/20 08:59 Last Admin: 03/31/20 08:34 Dose: 1,000 units Documented by: Warfarin Sodium (Warfarin Sod 2 Mg Tab) 2 mg PO [id number] [facility] Stop: 04/29/20 15:59 Last Admin: 03/30/20 16:26 Dose: 2 mg Documented by: Warfarin Sodium (Warfarin Sod 4 Mg Tab) 4 mg PO [id number] [facility] Stop: 05/01/20 15:59 (1) Hypothyroidism Hypothyroidism type: unspecified Qualified Code(s): E03.9 - Hypothyroidism, unspecified
[2020-03-31] MEDS: CHOLESTYRAMINE LIGHT 4 GM PKT PO SCH (10:26)
--- NOTE | 2020-04-01 07:53 | Discharge Summary ---
Date of Service April 01, 2020 Admission HPI Per Admitting Provider This is a 64-year-old female who has significant past medical history of insulin-dependent T2DM, history of chronic LLE DVT/PE anticoagulated with warfarin and ivcf in place, HTN, HLD, hypothyroidism, CKD stage III, diabetic neuropathy, recurrent C. difficile, Crohn's disease who comes to ER secondary to melena and weakness x3 days. Daughter is at bedside. [place] became very weak and lightheaded. Family called over to GI office recommended urgent ER evaluation due to concern for melena. Of significance patient has had multiple recent hospitalizations. 03/08 and 03/12 : secondary to symptomatic anemia and rectal bleeding. She received 2 units PRBC, GI was on board recommended conservative management and she did not require any further intervention. She was also diagnosed with C. difficile colitis and was treated with regimen of oral vancomycin 125 mg 4 times daily for 10 days. She most recently completed this. Her Coumadin was initially held but resumed at discharge. Hospitalized 02/14 to 02/16 again secondary to rectal bleed with supratherapeutic INR. Discharge hemoglobin was 8.3. She is actively followed by GI as an outpatient. Most recent colonoscopy 02/02/20 revealed ulcerations at rectum, sigmoid, descending and transverse colon along with cecum but ascending colon was spared. Initially she was suspected to have ulcerative colitis but later found to have had Crohn's. Unfortunately she has failed Humira treatment secondary to antibodies and Entyvio. Currently patient complains of being generally weak, lightheaded upon standing, lower abdominal generalized cramping which is usual for her, loose dark tarry stools. She denies any recent fever, chills, sweats, lightheadedness, dizziness, chest pain, cough, shortness with at rest, nausea, vomiting, epigastric abdominal pain. She further denies any dysuria, increased urgency or frequency with urination. Appetite is otherwise been diminished. She recently started protein shakes supplementation secondary to low protein and blood. In ED patient was hemodynamically stable although she was slightly tachycardic. Her H&H was 7.8 and 25.8, platelet 507, INR 2.1, BUN 22, creatinine 0.98, glucose 241. Admission Exam Per Admitting Provider Physical Exam: Constitutional: WD/WN, pale, female, vitals as above, NAD, sitting up in bed, pleasant, conversing easily Head: Normocephalic, Atraumatic Eyes: PERRL, conjunctivae normal, anicteric sclerae ENMT: external ear and nose normal, oropharynx normal Neck: trachea midline, no thyromegaly normal visual inspection Respiratory: normal respiratory effort, lungs clear to auscultation, no wheeze, rales, rhonchi. Normal insp/exp effort, no accessory muscle use Cardiovascular: Tachycardic rate, regular rhythm, no murmur, no edema Vessels: no JVD or carotid bruit Chest: normal inspection of chest Abdomen: normal bowel sounds, soft, general tenderness to bilateral lower quadrants, no rebound, no guarding, no rigidity, no hepatosplenomegaly Musculoskeletal: no cyanosis or clubbing, extremities motor strength 5/5 Skin: no rashes, warm and dry normal turgor , cap refill > 2 sec Neurologic: PERRL, EOMI, accommodation nl, no face palsy, no dysarthria CN's II-XI intact bilaterally and moves all extremities Psychiatric: A+Ox3, euthymic affect Lymphatic: no cervical or axillary lymphadenopathy : deferred Principal Diagnosis Acute GI bleed-no source with EGD, Crohn's disease, chronic DVT of left popliteal vein on Coumadin Discharge Exam Constitutional well developed, well nourished and + ill appearing; no acute distress Eyes PERRL, conjunctivae normal, anicteric sclerae ENMT external ear and nose normal, oropharynx normal Neck trachea midline, no thyromegaly Respiratory normal respiratory effort; no respiratory distress Auscultation: lungs clear to auscultation bilaterally Cardiovascular Rate/Rhythm: regular rate and regular rhythm Heart Sounds: no murmur Extremities: + edema (Trace edema bilaterally) Gastrointestinal (Abdomen) Inspection/Auscultation: abdomen normal to inspection and normal bowel sounds; abdomen not distended Percussion/Palpation: abdomen soft; abdomen nontender (Minimally tender epigastrium) and no guarding Neurologic moves all extremities; no focal motor deficits Psychiatric A+Ox3, euthymic affect Lymphatic no cervical or axillary lymphadenopathy Discharge Data Allergies Allergy/AdvReac Type Severity Reaction Status Date / Time aztreonam [From Azactam] Allergy Intermediate flushed Verified 03/28/20 17:02 /itching dorzolamide Allergy Unknown EYE LID Verified 03/28/20 17:02 SWELLING latanoprost Allergy Unknown EYE LID Verified 03/28/20 17:02 SWELLING Penicillins Allergy Unknown Rash Verified 03/28/20 17:02 thimerosal Allergy Unknown Unknown Verified 03/28/20 17:02 timolol Allergy Unknown EYE LID Verified 03/28/20 17:02 SWELLING empagliflozin AdvReac Severe Confusion Unverified 03/28/20 17:02 [From Jardiance] Consultations 03/28/20 16:32 ED Decision to Admit Stat 03/28/20 17:15 Consult Gastroenterology Routine Procedures Performed Operation Date: 03/29/20 15:30 Actual Procedures p Esophagogastroduodenoscopy - Alonso Felton Hospital Course (1) Acute GI bleeding: This is a 64-year-old female who has significant past medical history of insulin-dependent T2DM, history of chronic LLE DVT/PE anticoagulated with warfarin and ivcf in place, HTN, HLD, hypothyroidism, CKD stage III, diabetic neuropathy, recurrent C. difficile, Crohn's disease who comes to ER secondary to melena and weakness x3 days. Upper GI bleed is complicated by use of Coumadin Denies any use of NSAID use Hemoglobin on admission was 7.8 and received 1 unit of blood transfusion No prior history of EGD Has been on n.p.o. and intravenous Protonix drip Monitor H&H-0.5 as on 03/29/2020 Appreciate GI input and recommendation EGD showed normal esophagus, normal stomach and normal examined duodenum Denies any more symptoms and hemoglobin remained stable at 9.7 as of last afternoon Hemoglobin remains stable at 9.4 as of 03/31/2020 She has been feeling a lot better and is ambulating in the room without any difficulties Be discharged home this afternoon (2) Acute on chronic blood loss anemia: As above History of recurrent rectal bleed History of Crohn's disease Status post colonoscopy We will monitor CBC-hemoglobin 9.4 (3) Weakness: Likely secondary to symptoms of anemia (4) Inflammatory bowel disease: History of Crohn's disease Does not have any acute exacerbation now (5) 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: hx of chronic DVT to left popliteal vein/PE anticoagulated on warfarin Status post IVC filter INR 2.1, hold warfarin Discussed with attending and GI who recommend holding warfarin, no indication for reversal at this point Will restart Coumadin-advised to have follow-up appointment with coagulation clinic (6) CKD (chronic kidney disease), stage III: baseline cr 1.1 bun/cr stable monitor (7) Diabetes: A1c 8.9 02/01/2020 lantus/novolog per protocol home regimen is tresiba 22units daily (8) Hypothyroidism: Continue levothyroxine (9) Depression: Mood stable continue Zoloft (10) DVT prophylaxis: SCD/TEDS hold warfarin in setting of probable GIB Disposition: Admit to tele Follow up: PCP Dr. Templeton upon discharge along with appropriate GI follow up Discharged home this afternoon Total Time Total Time Spent Total Time Spent (In Minutes): 35 minutes Total Time Includes: Examination of the Patient, Discharge Planning, Medication Reconciliation and Communication With Other Providers Discharge Plan Discharge Items Patient Disposition: Home - Self-Care Reason For Visit: GIB Discharge Diagnosis: Acute GI bleed-no source with EGD, Crohn's disease, chronic DVT of left popliteal vein on Coumadin Condition on Discharge: Good Activity: Resume your previous activity Non-emergency contact: Primary Care Provider Call non-emergency contact if: you have any medication questions and your symptoms worsen Follow-up/Referrals: Isaias Templeton MD [Primary Care Provider] - (Your doctor's office will call with an appointment within 7 days) Diet: Carb Consistent or DM2 Addtl Attending Provider Instructions: No NSAIDs and/or aspirin Pending Studies at Discharge: No Stand-Alone Forms: My [employer], Smoking Cessation Medications and DC Order Prescriptions: Continued furosemide [Lasix] 20 mg Tablet 20 mg PO QAM RF: 0 Probiotic Acidophilus [employer]s 12.9 mg (2 billion cell) Tablet,Delayed Release (Dr/Ec) 1 tab PO TIDM RF: 0 sertraline [Zoloft] 50 mg Tablet 50 mg PO QAM RF: 0 dicyclomine 10 mg capsule 10 mg PO BID PRN (Reason: abdominal cramping) RF: 0 prednisone 5 mg Tablet 5 mg PO DAILY Qty: 30 RF: 0 warfarin 4 mg tablet 2 mg PO 5XWK RF: 0 cholestyramine (with sugar) [Questran] 4 gram powder in packet 1 ea PO BID RF: 0 warfarin 4 mg tablet 4 mg PO MOFR RF: 0 Stelara 45 mg/0.5 mL Solution 0 mg subcut Q8WK RF: 0 levothyroxine 75 mcg Tablet 75 mcg PO DAILYBB RF: 0 cholecalciferol (vitamin D3) [Vitamin D3] 1,000 unit Tablet 1,000 unit PO QAM RF: 0 calcium citrate-vitamin D3 [Citracal-D3 Petites] 200 mg calcium -250 unit Tablet 1 tab PO QAM RF: 0 atorvastatin 40 mg tablet 40 mg PO HS RF: 0 anastrozole 1 mg Tablet 1 mg PO QAM RF: 0 potassium chloride [Klor-Con M20] 20 mEq Tablet,Er Particles/Crystals 20 meq PO BID RF: 0 trazodone 50 mg tablet 50 mg PO HS PRN (Reason: Sleep) RF: 0 Lantus Solostar U-100 Insulin 100 unit/mL (3 mL) insulin pen 22 unit SUBCUT QAM RF: 0 polysaccharide iron complex [Ferrex 150] 150 mg iron capsule 150 mg PO BID RF: 0 triamcinolone acetonide 0.1 % Cream 1 applic TOPICAL BID PRN (Reason: Rash) RF: 0 fluocinonide 0.05 % Ointment 1 applic TOPICAL BID PRN (Reason: Rash) RF: 0 budesonide 9 mg tablet,delayed and ext.release 9 mg PO QAM RF: 0 pantoprazole 40 mg tablet,delayed release (DR/EC) 40 mg PO QAM RF: 0 Discharge Orders: Discharge Order (Routine); Ordered 03/31/20 Ordered By: Shannan Koo Admission Data Admit Date/Time: 03/28/20 16:13 Attending Provider: Shannan Koo Admit Provider: Andrea Ellison Primary Care Provider: Isaias Templeton Other Providers: Andrea Ellison ; Alonso Felton Other Interventions: Discharge Summary Assessment (RN) Last Done: 03/31/20 13:02
[2020-04-01] MEDS ORDERED: WARFARIN SOD 4 MG TAB PO SCH (16:00)
== END 2020-03-31 13:45 | disposition home or self-care (01) | DRG 813 ==
LOC: ED 14:51 → 2S 16:13 → SUATTDRO 16:13 → 2S 17:00

== ENCOUNTER 2020-04-08 11:53 | Inpatient (IN) ==
[2020-04-08] MEDS ORDERED: SODIUM CHLORIDE 0.9% 1000ML 2,000 ML IV ONE (12:54)
[2020-04-08] MEDS ORDERED: PANTOprazole 80 MG in DEXTROSE 5% 100 ML IV ONE (12:58)
[2020-04-08] MEDS ORDERED: PANTOPRAZOLE BOLUS/DRIP 1 EA IV STA (12:58)
--- NOTE | 2020-04-08 12:59 | Emergency Department Note ---
Impression & Plan Acute GI bleeding, Anemia, Colitis, Crohns disease ED Provider Note NAME: TYRESE PEÑALOZA AGE: 64 SEX: F : 1955 ARRIVES VIA: Walk-In INFORMANT: Patient ED PROVIDER(S): Chintan Luu DO CHIEF COMPLAINT: Bright red blood per rectum HPI: Patient is a 64-year-old female insulin-dependent T2DM, history of chronic LLE DVT/PE anticoagulated with warfarin and ivcf in place, HTN, HLD, hypothyroidism, CKD stage III, diabetic neuropathy, recurrent C. difficile, Angle Shearer hn's diseasewith onset of Crohn's diagnosed in the past 2 years who follows with [facility] gastroenterology. She presents the ER as she has had bright red blood per rectum since Wednesday. She is only had a little bit. This is significantly worsened Wednesday and Wednesday. She also stools are bright red blood as well as dark tarry. She has felt fatigued. She has some chronic lower abdominal pain i n the bilateral sides which is secondary to her Crohn's. Recent EGD was unremarkable. She was restarted on her Coumadin secondary to a popliteal DVT. She currently still is on oral vancomycin. ROS: See above HPI for pertinent positives & negatives. A total of 10 systems reviewed and were otherwise negative. PAST MEDICAL HISTORY:See Below PAST SURGICAL HISTORY:See Below FAMILY HISTORY:See Below SOCIAL HISTORY:See Below HOME MEDICATIONS:See Below ALLERGIES:See Below VITALS:See Below PHYSICAL EXAMINATION: GENERAL: Sitting up in bed, alert, well appearing, well nourished, no distress, non-toxic EYE EXAM: normal conjunctiva. OROPHARYNX: no exudate, no erythema, lips, buccal mucosa, and tongue normal and mucous membranes are moist NECK: supple, no nuchal rigidity, no adenopathy, non-tender LUNGS: Clear to auscultation. Normal chest wall mechanics HEART: no murmurs, S1 normal and S2 normal ABDOMEN: abdomen soft, non-tender, normo-active bowel sounds, no masses, no rebound or guarding. BACK: Back is symmetrical on inspection and there is no deformity, no midline tenderness, no CVA tenderness. SKIN: no rashes and no bruising UPPER EXTREMITIES: upper extremities are grossly normal. LOWER EXTREMITIES: No pitting edema. NEURO EXAM: Normal sensorium, cranial nerves II-XII grossly intact, normal speech, no gross weakness of arms, no gross weakness of legs. MEDICAL DECISION MAKING: Patient is a 64-year-old female who presents the ER for bright red blood per rectum which has been going on since this past weekend. Gradually getting worse. She has had this multiple times before in the past. She is currently on Coumadin for DVT. She does have a Crohn's history which has been present for the past 2 years. IV was established blood work was obtained. Labs show a mild leukocytosis 11,000. Mild anemia at 9. Consistent with previous. INR was the rapeutic at 2.0. BMP with an elevated chloride. LFTs bilirubin was unremarkable. Patient was typed and crossed. CT abdomen pelvis shows colitis. Unable to obtain a stool sample. Patient was given IV fluids. Heart rate trended down. She was updated bedside. Discussed with the hospitalist. She was not reversed as her hemoglobin was stable and consistent with previous and heart rate trended down. Triage Nursing notes reviewed. Prior medical records reviewed Vital Signs: reviewed and remarkable for tachycardic Differential diagnosis: Differential diagnosis includes etiologies such as diverticulitis, diverticulosis, AVM, coagulopathy, colitis, inflammatory bowel disease, malignancy, Lisette-Mccartney tear, esophagitis, peptic ulcer disease, variceal bleed, gastritis, epistaxis, fissure, hemorrhoids, as well as others were entertained. ER treatment provided: See below Diagnostics interpreted by me: ECG: Sinus rhythm rate of 95 Normal axis No PVCs Normal QTC DWI in lead III T wave flattening in V2 No significant change from EKG on 03/28/2020 Cardiac Monitoring: An order was placed for continuous cardiac monitoring. The monitor shows a rate of 112 with sinus rhythm. Laboratory studies: As stated above and show below. Imaging studies: CT abdomen pelvis shows no acute pathology Consultation(s): Discussed with hospitalist for further evaluation ED COURSE: Procedures: none Critical Care: None Past Med/Surg History Medical History (Updated 04/08/20 @ 18:54 by Chintan Luu DO) Acute hyponatremia Acute kidney injury Anemia Breast cancer, right 2012--SX & RADIATION, NO CHEMO C. 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) "Abnormal right breast mammogram Biopsy-positive for DCIS Status post lumpectomy with no residual tumor stage pTis NXMX Estrogen receptor positive, progesterone receptor positive Status post completion of radiation therapy 02/22/2013 received 3850 cGy utilizing accelerated partial breast treatment " Obesity (BMI 30-39.9) Surgical History H/O breast biopsy 2012--RIGHT MALIGNANT H/O lumpectomy History of appendectomy History of colonoscopy History of lumpectomy of right breast "+ HERBIE ER/IA + in 10/2012 s/p RT" History of tonsillectomy and adenoidectomy Hx of appendectomy S/P insertion of IVC (inferior vena caval) filter 03/29/[address] 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: No Beliefs That Will Affect Care: None marital status: Single Current Living Situation: Family Current Living Situation Comment: alone How many Children do You have: 0 Other Information That Helps Us Care for You: No Feels Safe at Home: Yes Safety Concerns: Feels Safe At This Time Assistive Devices: Glasses Allergies Allergies Allergy/AdvReac Type Severity Reaction Status Date / Time aztreonam [From Azactam] Allergy Intermediate flushed Verified 04/08/20 13:48 /itching dorzolamide Allergy Unknown EYE LID Verified 04/08/20 13:48 SWELLING latanoprost Allergy Unknown EYE LID Verified 04/08/20 13:48 SWELLING Penicillins Allergy Unknown Rash Verified 04/08/20 13:48 thimerosal Allergy Unknown Unknown Verified 04/08/20 13:48 timolol Allergy Unknown EYE LID Verified 04/08/20 13:48 SWELLING empagliflozin AdvReac Severe Confusion Unverified 04/08/20 13:48 [From Jardiance] Home Meds Home Medications Medication Instructions Recorded Confirmed calcium citrate-vitamin D3 1 tab PO QAM 05/12/18 04/08/20 [Citracal-D3 Petites] cholecalciferol (vitamin D3) 1,000 unit PO QAM 05/12/18 04/08/20 [Vitamin D3] levothyroxine 75 mcg PO DAILYBB 05/12/18 04/08/20 Probiotic Acidophilus Biobeads 1 tab PO TIDM 03/22/19 04/08/20 furosemide [Lasix] 20 mg PO QAM 03/22/19 04/08/20 sertraline [Zoloft] 50 mg PO QAM 03/22/19 04/08/20 anastrozole 1 mg PO QAM 07/21/19 04/08/20 atorvastatin 40 mg PO HS 07/21/19 04/08/20 potassium chloride [Klor-Con M20] 20 meq PO BID 07/21/19 04/08/20 Lantus Solostar U-100 Insulin 22 unit SUBCUT QAM 01/01/20 04/08/20 trazodone 50 mg PO HS PRN 01/01/20 04/08/20 polysaccharide iron complex 150 mg PO BID 01/31/20 04/08/20 [Ferrex 150] budesonide 9 mg PO QAM 02/15/20 04/08/20 fluocinonide 1 applic TOPICAL BID PRN 02/15/20 04/08/20 pantoprazole 40 mg PO QAM 02/15/20 04/08/20 triamcinolone acetonide 1 applic TOPICAL BID PRN 02/15/20 04/08/20 dicyclomine 10 mg PO BID PRN 03/08/20 04/08/20 cholestyramine (with sugar) 1 ea PO BID 03/28/20 04/08/20 [Questran] warfarin 2 mg PO 5XWK 03/28/20 04/08/20 warfarin 4 mg PO MOFR 03/28/20 04/08/20 Previous Rx's Medication Instructions Recorded prednisone 5 mg PO DAILY #30 tab 03/11/20 Results & Data (ED) Vital Signs Vital Signs - 24 hr 04/08/20 11:57 04/08/20 12:06 04/08/20 12:55 Temperature 37.2 C Temperature Source Oral Pulse Rate 128 H 100 H Pulse Rate from SpO2 Sensor Respiratory Rate 17 21 Respiratory Effort / Characteristics Non-Labored Respiratory Depth Normal Respiratory Pattern Regular Blood Pressure 120/82 170/102 H Blood Pressure Mean 94 132 Blood Pressure Position Sitting Pulse Oximetry 97 Oxygen Delivery Method Room Air Room Air Room Air Sepsis Recent Fever Within 48 Hours No Sepsis New/Unexplained Change in Mental Status No Sepsis Action Taken by Nursing No Action Required 04/08/20 13:05 04/08/20 13:07 04/08/20 13:10 Temperature Temperature Source Pulse Rate 102 H 102 H 102 H Pulse Rate from SpO2 Sensor 102 H 102 H 102 H Respiratory Rate 20 20 24 Respiratory Effort / Characteristics Respiratory Depth Respiratory Pattern Blood Pressure 124/77 Blood Pressure Mean 94 Blood Pressure Position Pulse Oximetry 98 99 99 Oxygen Delivery Method Room Air Room Air Room Air Sepsis Recent Fever Within 48 Hours Sepsis New/Unexplained Change in Mental Status Sepsis Action Taken by Nursing 04/08/20 13:20 04/08/20 13:30 04/08/20 13:40 Temperature Temperature Source Pulse Rate 101 H 93 H 95 H Pulse Rate from SpO2 Sensor 100 H 91 H 96 H Respiratory Rate 20 19 26 H Respiratory Effort / Characteristics Respiratory Depth Respiratory Pattern Blood Pressure 119/85 Blood Pressure Mean 97 Blood Pressure Position Pulse Oximetry 100 99 97 Oxygen Delivery Method Room Air Room Air Room Air Sepsis Recent Fever Within 48 Hours Sepsis New/Unexplained Change in Mental Status Sepsis Action Taken by Nursing 04/08/20 13:50 04/08/20 14:00 04/08/20 14:10 Temperature Temperature Source Pulse Rate 94 H 95 H 84 Pulse Rate from SpO2 Sensor 94 H 96 H 84 Respiratory Rate 28 H 24 19 Respiratory Effort / Characteristics Respiratory Depth Respiratory Pattern Blood Pressure 119/69 Blood Pressure Mean 102 Blood Pressure Position Pulse Oximetry 97 97 99 Oxygen Delivery Method Room Air Room Air Room Air Sepsis Recent Fever Within 48 Hours Sepsis New/Unexplained Change in Mental Status Sepsis Action Taken by Nursing 04/08/20 14:20 04/08/20 14:30 04/08/20 14:40 Temperature Temperature Source Pulse Rate 80 84 84 Pulse Rate from SpO2 Sensor 81 84 85 Respiratory Rate 22 25 H 24 Respiratory Effort / Characteristics Respiratory Depth Respiratory Pattern Blood Pressure 119/68 Blood Pressure Mean 93 Blood Pressure Position Pulse Oximetry 96 96 96 Oxygen Delivery Method Room Air Room Air Room Air Sepsis Recent Fever Within 48 Hours Sepsis New/Unexplained Change in Mental Status Sepsis Action Taken by Nursing 04/08/20 14:50 04/08/20 15:00 04/08/20 15:10 Temperature Temperature Source Pulse Rate 90 86 88 Pulse Rate from SpO2 Sensor 89 86 88 Respiratory Rate 22 22 21 Respiratory Effort / Characteristics Respiratory Depth Respiratory Pattern Blood Pressure 116/74 Blood Pressure Mean 81 Blood Pressure Position Pulse Oximetry 96 98 98 Oxygen Delivery Method Room Air Room Air Room Air Sepsis Recent Fever Within 48 Hours Sepsis New/Unexplained Change in Mental Status Sepsis Action Taken by Nursing 04/08/20 15:33 04/08/20 15:40 04/08/20 15:50 Temperature Temperature Source Pulse Rate 82 88 86 Pulse Rate from SpO2 Sensor Respiratory Rate 26 H 25 H 21 Respiratory Effort / Characteristics Respiratory Depth Respiratory Pattern Blood Pressure Blood Pressure Mean Blood Pressure Position Pulse Oximetry Oxygen Delivery Method Room Air Room Air Room Air Sepsis Recent Fever Within 48 Hours Sepsis New/Unexplained Change in Mental Status Sepsis Action Taken by Nursing 04/08/20 16:00 04/08/20 16:10 04/08/20 16:20 Temperature Temperature Source Pulse Rate 92 H 90 99 H Pulse Rate from SpO2 Sensor Respiratory Rate 28 H 21 27 H Respiratory Effort / Characteristics Respiratory Depth Respiratory Pattern Blood Pressure Blood Pressure Mean Blood Pressure Position Pulse Oximetry Oxygen Delivery Method Room Air Room Air Room Air Sepsis Recent Fever Within 48 Hours Sepsis New/Unexplained Change in Mental Status Sepsis Action Taken by Nursing 04/08/20 16:30 04/08/20 16:40 04/08/20 16:50 Temperature Temperature Source Pulse Rate 86 87 93 H Pulse Rate from SpO2 Sensor 87 Respiratory Rate 19 21 24 Respiratory Effort / Characteristics Respiratory Depth Respiratory Pattern Blood Pressure 120/73 Blood Pressure Mean 81 Blood Pressure Position Pulse Oximetry 98 Oxygen Delivery Method Room Air Room Air Room Air Sepsis Recent Fever Within 48 Hours Sepsis New/Unexplained Change in Mental Status Sepsis Action Taken by Nursing 04/08/20 17:00 04/08/20 17:10 04/08/20 17:20 Temperature Temperature Source Pulse Rate 96 H 87 86 Pulse Rate from SpO2 Sensor Respiratory Rate 20 27 H 16 Respiratory Effort / Characteristics Respiratory Depth Respiratory Pattern Blood Pressure 102/70 Blood Pressure Mean 79 Blood Pressure Position Pulse Oximetry Oxygen Delivery Method Room Air Room Air Room Air Sepsis Recent Fever Within 48 Hours Sepsis New/Unexplained Change in Mental Status Sepsis Action Taken by Nursing 04/08/20 17:30 04/08/20 17:40 04/08/20 17:50 Temperature Temperature Source Pulse Rate 90 88 88 Pulse Rate from SpO2 Sensor Respiratory Rate 19 23 19 Respiratory Effort / Characteristics Respiratory Depth Respiratory Pattern Blood Pressure 114/64 Blood Pressure Mean 81 Blood Pressure Position Pulse Oximetry Oxygen Delivery Method Room Air Room Air Room Air Sepsis Recent Fever Within 48 Hours Sepsis New/Unexplained Change in Mental Status Sepsis Action Taken by Nursing 04/08/20 18:07 Temperature Temperature Source Pulse Rate Pulse Rate from SpO2 Sensor Respiratory Rate Respiratory Effort / Characteristics Respiratory Depth Respiratory Pattern Blood Pressure Blood Pressure Mean Blood Pressure Position Pulse Oximetry Oxygen Delivery Method Room Air Sepsis Recent Fever Within 48 Hours Sepsis New/Unexplained Change in Mental Status Sepsis Action Taken by Nursing Laboratory Data Result diagrams: 04/08/20 12:45 04/08/20 12:45 Lab Results 04/08/20 04/08/20 04/08/20 Range/Units 12:45 12:45 12:45 WBC 11.01 H (4.8-10.8) K/uL RBC 3.60 L (4.2-5.4) M/uL Hgb 9.1 L (12.0-16.0) g/dL Hct 30.9 L (37-47) % MCV 85.8 (80-100) fL MCH 25.3 (25-34) pg MCHC 29.4 L (32-36) g/dL RDW Std Deviation 53.9 H (36.4-46.3) fL RDW Coeff of Conchis 17.2 H (11.5-14.5) % Plt Count 477 H (130-400) K/uL MPV 9.0 (7.4-10.4) fL Immature Gran % (Auto) 5.1 % Neut % (Auto) 71.3 % Lymph % (Auto) 9.3 % Grand % (Auto) 10.6 % Eos % (Auto) 3.2 % Baso % (Auto) 0.5 % Neut # (Auto) 7.85 H (1.4-6.5) K/uL Lymph # (Auto) 1.02 L (1.2-3.4) K/uL Grand # (Auto) 1.17 H (0.11-0.59) K/uL Eos # (Auto) 0.35 (0-0.5) K/uL Baso # (Auto) 0.06 (0-0.2) K/uL Immature Gran # (Auto) 0.56 H (0.00-0.02) K/uL Absolute Nucleated RBC 0.04 H (0-0) K/uL Nucleated RBC % (auto) 0.3 % Polychromasia 1+ Tear Drop Cells 1+ PT 20.3 H (9.0-12.0) Seconds INR 2.0 H (0.9-1.1) APTT 32.2 H (21.0-31.0) Seconds PTT Ratio 1.2 Sodium (136-145) mmol/L Potassium (3.5-5.1) mmol/L Chloride (98-107) mmol/L Carbon Dioxide (21-32) mmol/L Anion Gap (3-11) BUN (7-18) mg/dl Creatinine (0.6-1.2) mg/dl Est Cr Clr Drug Dosing ml/min Est GFR ( Amer) Est GFR (Non-Af Amer) BUN/Creatinine Ratio (10-20) Glucose (70-99) mg/dl Calcium (8.5-10.1) mg/dl Total Bilirubin (0.2-1) mg/dl AST (15-37) U/L ALT (12-78) U/L Alkaline Phosphatase (45-117) U/L Total Protein (6.4-8.2) gm/dl Albumin (3.4-5.0) gm/dl Globulin (2.5-4.0) gm/dl Albumin/Globulin Ratio (0.9-2) Blood Type AB Negative Antibody Screen NEGATIVE 04/08/20 Range/Units 12:45 WBC (4.8-10.8) K/uL RBC (4.2-5.4) M/uL Hgb (12.0-16.0) g/dL Hct (37-47) % MCV (80-100) fL MCH (25-34) pg MCHC (32-36) g/dL RDW Std Deviation (36.4-46.3) fL RDW Coeff of Conchis (11.5-14.5) % Plt Count (130-400) K/uL MPV (7.4-10.4) fL Immature Gran % (Auto) % Neut % (Auto) % Lymph % (Auto) % Grand % (Auto) % Eos % (Auto) % Baso % (Auto) % Neut # (Auto) (1.4-6.5) K/uL Lymph # (Auto) (1.2-3.4) K/uL Grand # (Auto) (0.11-0.59) K/uL Eos # (Auto) (0-0.5) K/uL Baso # (Auto) (0-0.2) K/uL Immature Gran # (Auto) (0.00-0.02) K/uL Absolute Nucleated RBC (0-0) K/uL Nucleated RBC % (auto) % Polychromasia Tear Drop Cells PT (9.0-12.0) Seconds INR (0.9-1.1) APTT (21.0-31.0) Seconds PTT Ratio Sodium 141 (136-145) mmol/L Potassium 3.8 (3.5-5.1) mmol/L Chloride 109 H (98-107) mmol/L Carbon Dioxide 25 (21-32) mmol/L Anion Gap 7.0 (3-11) BUN 19 H (7-18) mg/dl Creatinine 0.94 (0.6-1.2) mg/dl Est Cr Clr Drug Dosing 48.8 ml/min Est GFR ( Amer) 73.8 Est GFR (Non-Af Amer) 63.7 BUN/Creatinine Ratio 20.2 H (10-20) Glucose 107 H (70-99) mg/dl Calcium 9.5 (8.5-10.1) mg/dl Total Bilirubin 0.3 (0.2-1) mg/dl AST 14 L (15-37) U/L ALT 10 L (12-78) U/L Alkaline Phosphatase 91 (45-117) U/L Total Protein 6.8 (6.4-8.2) gm/dl Albumin 2.4 L (3.4-5.0) gm/dl Globulin 4.4 H (2.5-4.0) gm/dl Albumin/Globulin Ratio 0.5 L (0.9-2) Blood Type Antibody Screen Administered Medications Pantoprazole Sodium 40 mg/ (Dextrose) 100 mls @ 20 mls/hr IV Q5H RACHEL Stop: 05/08/20 13:13 Last Admin: 04/08/20 14:03 Dose: 8 mg/hr, 20 mls/hr Documented by: [id number] Discontinued Medications Sodium Chloride (Nss 1000ml) 2,000 mls @ 999 mls/hr IV .Q2H1M ONE Stop: 04/08/20 14:54 Last Infusion: 04/08/20 15:09 Dose: 0 mls/hr Documented by: [id number] Admin: 04/08/20 13:07 Dose: 999 mls/hr Documented by: [id number] Pantoprazole Sodium (Protonix Bolus/Drip) 0 mls @ 1 mls/hr IV ONE STA Stop: 04/08/20 12:59 Last Admin: 04/08/20 14:04 Dose: 1 mls/hr Documented by: [id number] Pantoprazole Sodium 80 mg/ (Dextrose) 120 mls @ 400 mls/hr IV NOW ONE Stop: 04/08/20 13:15 Last Infusion: 04/08/20 14:05 Dose: 0 mls/hr Documented by: [id number] Admin: 04/08/20 13:41 Dose: 400 mls/hr Documented by: [id number] Ioversol (Ioversol 100ml) 93 ml IV ONCE ONE Stop: 04/08/20 15:24 Last Admin: 04/08/20 15:23 Dose: 93 ml Documented by: [id number] Discharge Plan Visit Data Chief Complaint: GI Bleed Stated Complaint: GI BLEED ED Provider: Chintan Luu Discharge Problem: Acute GI bleeding, Anemia, Colitis, Crohns disease Discharge Instructions Interventions: ED Discharge Assessment Last Done: 04/08/20 18:07 Forms Stand Alone Forms: My [employer] Prescriptions Prescriptions: No Action furosemide [Lasix] 20 mg Tablet 20 mg PO QAM RF: 0 Probiotic Acidophilus Biobeads 12.9 mg (2 billion cell) Tablet,Delayed Release (Dr/Ec) 1 tab PO TIDM RF: 0 sertraline [Zoloft] 50 mg Tablet 50 mg PO QAM RF: 0 dicyclomine 10 mg capsule 10 mg PO BID PRN (Reason: abdominal cramping) RF: 0 prednisone 5 mg Tablet 5 mg PO DAILY Qty: 30 RF: 0 warfarin 4 mg tablet 2 mg PO 5XWK RF: 0 cholestyramine (with sugar) [Questran] 4 gram powder in packet 1 ea PO BID RF: 0 warfarin 4 mg tablet 4 mg PO MOFR RF: 0 levothyroxine 75 mcg Tablet 75 mcg PO DAILYBB RF: 0 cholecalciferol (vitamin D3) [Vitamin D3] 1,000 unit Tablet 1,000 unit PO QAM RF: 0 calcium citrate-vitamin D3 [Citracal-D3 Petites] 200 mg calcium -250 unit Tablet 1 tab PO QAM RF: 0 atorvastatin 40 mg tablet 40 mg PO HS RF: 0 anastrozole 1 mg Tablet 1 mg PO QAM RF: 0 potassium chloride [Klor-Con M20] 20 mEq Tablet,Er Particles/Crystals 20 meq PO BID RF: 0 trazodone 50 mg tablet 50 mg PO HS PRN (Reason: Sleep) RF: 0 Lantus Solostar U-100 Insulin 100 unit/mL (3 mL) insulin pen 22 unit SUBCUT QAM RF: 0 polysaccharide iron complex [Ferrex 150] 150 mg iron capsule 150 mg PO BID RF: 0 triamcinolone acetonide 0.1 % Cream 1 applic TOPICAL BID PRN (Reason: Rash) RF: 0 fluocinonide 0.05 % Ointment 1 applic TOPICAL BID PRN (Reason: Rash) RF: 0 budesonide 9 mg tablet,delayed and ext.release 9 mg PO QAM RF: 0 pantoprazole 40 mg tablet,delayed release (DR/EC) 40 mg PO QAM RF: 0 Discharge Problem: Anemia Qualifiers: Anemia type: unspecified type Qualified Code(s): D64.9 - Anemia, unspecified Crohns disease Qualifiers: Gastrointestinal tract location: unspecified location Digestive disease complication type: unspecified complication Qualified Code(s): K50.919 - Crohn's disease, unspecified, with unspecified complications
[2020-04-08 13:21] LABS: Mean Corpuscular Hgb Conc 29.4 g/dL (32-36); Nucleated RBC # (auto) 0.04 K/uL (0-0); Nucleated RBC % (auto) 0.3 %; Platelet Count 477 K/uL (130-400)
[2020-04-08 13:25] LABS: Partial Thromboplastin Ratio 1.2; Partial Thromboplastin Time 32.2 Seconds (21.0-31.0); Prothrombin Time 20.3 Seconds (9.0-12.0)
[2020-04-08 13:26] LABS: Albumin Level 2.4 gm/dl (3.4-5.0); BUN Creatinine Ratio 20.2 (10-20); Calcium 9.5 mg/dl (8.5-10.1); Creatinine Clr Calc Pharmacy 48.8 ml/min; Est GFR (African American) 73.8; Est GFR (Non-African American) 63.7; Potassium 3.8 mmol/L (3.5-5.1)
[2020-04-08 13:29] LABS: Albumin Globulin Ratio 0.5 (0.9-2); Bilirubin,Total 0.3 mg/dl (0.2-1); Globulin 4.4 gm/dl (2.5-4.0); Total Protein 6.8 gm/dl (6.4-8.2)
[2020-04-08 13:59] LABS: Basophils # (auto) 0.06 K/uL (0-0.2); Basophils % (auto) 0.5 %; Eosinophils # (auto) 0.35 K/uL (0-0.5); Eosinophils % (auto) 3.2 %; Hematocrit (blood only) 30.9 % (37-47); Hemoglobin 9.1 g/dL (12.0-16.0); Immature Granulocytes # (auto) 0.56 K/uL (0.00-0.02); Immature Granulocytes % (auto) 5.1 %; Lymphocytes # (auto) 1.02 K/uL (1.2-3.4); Lymphocytes % (auto) 9.3 %; Mean Corpuscular Hemoglobin 25.3 pg (25-34); Mean Corpuscular Volume 85.8 fL (80-100); Monocytes # (auto) 1.17 K/uL (0.11-0.59); Monocytes % (auto) 10.6 %; Neutrophils # (auto) 7.85 K/uL (1.4-6.5); Neutrophils % (auto) 71.3 %; Polychromasia 1+; RDW Coefficient of Variation 17.2 % (11.5-14.5); RDW Standard Deviation 53.9 fL (36.4-46.3); Tear Drop Cells 1+; White Blood Count 11.01 K/uL (4.8-10.8)
[2020-04-08] MEDS: PANTOprazole 40 MG in DEXTROSE 5% 100 ML IV SCH ×3 (14:03→23:14)
[2020-04-08] MEDS ORDERED: IOVERSOL 100ml IV ONE (15:23)
--- NOTE | 2020-04-08 15:41 | CT Scan Report ---
CT SCAN OF THE ABDOMEN AND PELVIS WITH IV CONTRAST CLINICAL HISTORY: Lower abdominal pain. Diarrhea. Reported history of Crohn's disease. COMPARISON STUDY: Abdominal CT dated 01/31/2020. Chest CT dated 04/02/2020. TECHNIQUE: Following the IV administration of 93 cc of Optiray 320, CT scan of the abdomen and pelvi s is performed from the lung bases to the proximal femora. Images are reviewed in the axial, sagittal , and coronal planes. IV contrast was administered without complication. A dose lowering technique wa s utilized adhering to the principles of ALARA. CT DOSE: 390.73 mGy.cm FINDINGS: Lung bases: The heart is normal in size and without pericardial effusion. The coronary arteries are d ensely calcified. An irregular nodule at the right lung base measures up to 3.4 cm. Additional subcen timeter nodules are seen in the left lower lobe. These are better characterized on the recent chest C T scan and have not significantly changed from 04/02/2020. Liver: The contrast-enhanced liver is normal in size, contour, and attenuation. There is no intrahepa tic biliary ductal dilatation. The hepatic veins and portal veins are patent. Gallbladder: There is a 3 cm calcified gallstone, with no clear CT evidence of acute cholecystitis. Spleen: Normal in size and attenuation. Pancreas: Unremarkable. Adrenal glands: Unremarkable. Kidneys: The contrast enhanced kidneys are normal in size and without hydronephrosis. The kidneys enh ance symmetrically. A 1.5 cm cyst is seen in the left upper pole. A 1.2 cm lesion in the lower pole o f left kidney seen on image #157 is indeterminant and may show contrast enhancement. Abdominal vasculature: The abdominal aorta is normal in course and caliber noting advanced atheroscle rotic calcification. An infrarenal IVC filter is in place. Bowel: There is diffuse colonic wall thickening and edema with pericolonic infiltration. This is grea test from the hepatic flexure to the rectosigmoid, with relative sparing of the right colon.. There i s a small duodenal diverticulum. The appendix is not identified and reported surgically absent. Peritoneum: There is no intraperitoneal free air or abdominal ascites. Lymphadenopathy: None. Pelvic viscera: The bladder, uterus, and adnexa are normal as visualized. There is no CT evidence of perianal disease. Skeletal structures: The skeletal structures are osteopenic. There is mild lumbosacral spondylosis. N o lytic or blastic lesions are seen. IMPRESSION: 1. Findings are consistent with a nonspecific colitis extending from the hepatic flexure to the recto sigmoid. This is similar to prior examinations and likely on an infectious or inflammatory basis. Cli nical correlation will be required. 2. Bibasilar pulmonary nodules are similar appearance to 04/02/[address] scan. These are likely on an infectious/inflammatory basis. See report of the recent chest CT for detailed findings. 3. Advanced coronary artery calcification. 4. A 12 mm indeterminant hyperdense lesion in the lower pole of the left kidney is similar to prior s tudies. 5. Cholelithiasis. 6. Additional findings as above. ACT 112: Negative or not required by law. Electronically signed by: John Bojorquez M.D. 04/08/2020 3:40 PM
--- NOTE | 2020-04-08 17:45 | History & Physical Report ---
Date of Service April 08, 2020 Assessment & Plan (1) Acute GI bleeding: (2) Inflammatory bowel disease: This is a 64-year-old female who has significant PMH of insulin-dependent T2DM, history of chronic LLE DVT/PE anticoagulated with warfarin and ivcf in place, CKD III, Crohn's disease, recurrent C. diff and HTN who presents with bloody bowel movements x 3 days. -This is patient's third hospitalization in the past 5 weeks for similar acute on chronic rectal bleeding in setting of Crohn's disease, anticoagulation for chronic DVT/PE -Normal EGD on 03/29 and Coumadin was resumed the following day -Returning with bloody bowel movements x 3 days. Hgb stable at 9.1. INR of 2.0 -Repeat H/H this evening and again in AM. Consented, type and screen, holding 1u prbc if hgb <8 -Routine GI consult. Clear liquid diet, NPO after midnight -Continue Crohn's regimen of prednisone, budesonide. Due to start Stelara home injections in a few weeks (3) 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: History of chronic DVT to left popliteal vein/PE anticoagulated on warfarin -Status post IVC filter -INR 2.0 - hold warfarin -Repeat INR in AM (4) CKD (chronic kidney disease), stage III: Cr at baseline ~1. Monitor with daily BMP (5) Diabetes mellitus type 2, controlled: A1c 8.9 02/01/2020 -Lantus/novolog per protocol -BSG AC HS (6) Depression: Continue Zoloft (7) Hypothyroidism: Continue levothyroxine DVT Ppx: hold warfarin in setting of probable GIB Code status:FULL PCP: Yokasta Dispo: Admit to [facility]. Plan to return home once medically stable. Patient seen in collaboration with Dr. Alvarez. Please see addendum. History of Present Illness Chief Complaint: GI bleed Primary Care Provider: Isaias Templeton MD This is a 64-year-old female who has significant PMH of insulin-dependent T2DM, history of chronic LLE DVT/PE anticoagulated with warfarin and ivcf in place, CKD III, Crohn's disease, recurrent C. diff and HTN who presents with bloody bowel movements x 3 days. This is patient's third hospitalization in the past5 weeks for similar acute on chronic rectal bleeding. During most recent admission from 03/28 and 04/01, patient underwent EGD that was normal and Coumadin was resumed the following day. Since discharge, patient has been following with Coumadin clinic without issue until this weekend, and she had to bowel movements mixed with bright red blood. Yesterday, problems became more frequent and had bright red blood as well as black tarry material. Denies any associated fever, chills or abdominal pain. Has not yet followed up with GI service. For Crohn's treatment, patient underwent initial infusion for Stelara approximately 6 weeks ago and has GI follow-up in 2 weeks. INR today is 2.0. Last took Coumadin yesterday evening. Feels fatigued and has a "hollow feeling" in chest and epigastrium but denies any pain. Denies any lightheadedness, visual changes, near syncope, chest pain, palpitations, shortness of breath, nausea, vomiting, abdominal pain, dysuria or hematuria. Allergies Allergy/AdvReac Type Severity Reaction Status Date / Time aztreonam [From Azactam] Allergy Intermediate flushed Verified 04/08/20 13:48 /itching dorzolamide Allergy Unknown EYE LID Verified 04/08/20 13:48 SWELLING latanoprost Allergy Unknown EYE LID Verified 04/08/20 13:48 SWELLING Penicillins Allergy Unknown Rash Verified 04/08/20 13:48 thimerosal Allergy Unknown Unknown Verified 04/08/20 13:48 timolol Allergy Unknown EYE LID Verified 04/08/20 13:48 SWELLING empagliflozin AdvReac Severe Confusion Unverified 04/08/20 13:48 [From Jardiance] Home Medications Home Medications Medication Instructions Recorded Confirmed Type calcium citrate-vitamin D3 1 tab PO QAM 05/12/18 04/08/20 History [Citracal-D3 Petites] cholecalciferol (vitamin D3) 1,000 unit PO QAM 05/12/18 04/08/20 History [Vitamin D3] levothyroxine 75 mcg PO DAILYBB 05/12/18 04/08/20 History Probiotic Acidophilus Biobeads 1 tab PO TIDM 03/22/19 04/08/20 History furosemide [Lasix] 20 mg PO QAM 03/22/19 04/08/20 History sertraline [Zoloft] 50 mg PO QAM 03/22/19 04/08/20 History anastrozole 1 mg PO QAM 07/21/19 04/08/20 History atorvastatin 40 mg PO HS 07/21/19 04/08/20 History potassium chloride [Klor-Con M20] 20 meq PO BID 07/21/19 04/08/20 History Lantus Solostar U-100 Insulin 22 unit SUBCUT QAM 01/01/20 04/08/20 History trazodone 50 mg PO HS PRN 01/01/20 04/08/20 History polysaccharide iron complex 150 mg PO BID 01/31/20 04/08/20 History [Ferrex 150] budesonide 9 mg PO QAM 02/15/20 04/08/20 History fluocinonide 1 applic TOPICAL BID PRN 02/15/20 04/08/20 History pantoprazole 40 mg PO QAM 02/15/20 04/08/20 History triamcinolone acetonide 1 applic TOPICAL BID PRN 02/15/20 04/08/20 History dicyclomine 10 mg PO BID PRN 03/08/20 04/08/20 History prednisone 5 mg PO DAILY #30 tab 03/11/20 04/08/20 Rx cholestyramine (with sugar) 1 ea PO BID 03/28/20 04/08/20 History [Questran] warfarin 2 mg PO [id number] 03/28/20 04/08/20 History warfarin 4 mg PO MOFR 03/28/20 04/08/20 History Past Med/Surg History Medical History (Updated 04/08/20 @ 18:25 by Shirley Mendes PA-C) Acute hyponatremia Acute kidney injury Anemia Breast cancer, right 2012--SX & RADIATION, NO CHEMO C. 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) "Abnormal right breast mammogram Biopsy-positive for DCIS Status post lumpectomy with no residual tumor stage pTis NXMX Estrogen receptor positive, progesterone receptor positive Status post completion of radiation therapy 02/22/2013 received 3850 cGy utilizing accelerated partial breast treatment " Obesity (BMI 30-39.9) Surgical History H/O breast biopsy 2012--RIGHT MALIGNANT H/O lumpectomy History of appendectomy History of colonoscopy History of lumpectomy of right breast "+ HERBIE ER/CT + in 10/2012 s/p RT" History of tonsillectomy and adenoidectomy Hx of appendectomy S/P insertion of IVC (inferior vena caval) filter 03/29/[address] BUSTAMANTE Status post glaucoma surgery BILT Family History Mother Family history of diabetes mellitus Heart disease Father Family history of diabetes mellitus Heart disease Sister Family history of diabetes mellitus Grandmother Family history of diabetes mellitus PATERNAL Uterine cancer Sister Crohn's disease Social History Smoking Status: Never smoker Second Hand Exposure: No; Hx Alcohol Use: No Hx Substance Use: No Preferred Language: Tuvaluan Communication Ability: Effective Visual Impairment: No Limitations Hearing Ability: Normal Sash Repairer Required: No Beliefs That Will Affect Care: None marital status: Single Current Living Situation: Family Current Living Situation Comment: alone How many Children do You have: 0 Other Information That Helps Us Care for You: No Feels Safe at Home: Yes Safety Concerns: Feels Safe At This Time Assistive Devices: Glasses Review of Systems Review of Systems: At least ten systems reviewed and negative except as noted in the HPI. Physical Exam Physical Exam: General Appearance: WD/WN, vitals as above, NAD, sitting up in bed, pleasant, conversing easily, pale Head: normocephalic, atraumatic Eyes: normal inspection, PERRL, conjunctivae normal, anicteric sclerae ENT: external ear and nose normal, oropharynx normal Neck: normal visual inspection, trachea midline, no thyromegaly Respiratory: normal respiratory effort, lungs clear to auscultation, no wheeze, rales, rhonchi. No accessory muscle use Cardiovascular: regular rate, rhythm, no murmur appreciated, normal peripheral pulses, no BLE edema. Vessels: no JVD Chest: normal inspection of chest Abdomen/GI: normal bowel sounds, soft, nontender, no hepatosplenomegaly Extremities/Musculoskeletal: no cyanosis or clubbing, extremities motor strength 5/5 Neurologic: PERRL, EOMI, accommodation nl, no face palsy, no dysarthria, CN's II-XI intact bilaterally and moves all extremities Psychiatric: A+Ox3, euthymic affect Skin: no rashes, normal color, warm/dry Results & Data Results & Data ([facility]) Vital Signs (Past 12 Hours) Vital Signs Temp Pulse Resp BP Pulse Ox 04/08/20 17:20 86 16 04/08/20 17:10 87 27 H 04/08/20 17:00 96 H 20 102/70 04/08/20 16:50 93 H 24 04/08/20 16:40 87 21 04/08/20 16:30 86 19 120/73 98 04/08/20 16:20 99 H 27 H 04/08/20 16:10 90 21 04/08/20 16:00 92 H 28 H 04/08/20 15:50 86 21 04/08/20 15:40 88 25 H 04/08/20 15:33 82 26 H 04/08/20 15:10 88 21 98 04/08/20 15:00 86 22 116/74 98 04/08/20 14:50 90 22 96 04/08/20 14:40 84 24 96 04/08/20 14:30 84 25 H 119/68 96 04/08/20 14:20 80 22 96 04/08/20 14:10 84 19 99 04/08/20 14:00 95 H 24 119/69 97 04/08/20 13:50 94 H 28 H 97 04/08/20 13:40 95 H 26 H 97 04/08/20 13:30 93 H 19 119/85 99 04/08/20 13:20 101 H 20 100 04/08/20 13:10 102 H 24 99 04/08/20 13:07 102 H 20 99 04/08/20 13:05 102 H 20 124/77 98 04/08/20 12:06 100 H 21 170/102 H 04/08/20 11:57 37.2 C 128 H 17 120/82 97 Laboratory Results Short CBC 04/08/20 04/08/20 04/08/20 Range/Units 12:45 12:45 12:45 WBC 11.01 H (4.8-10.8) K/uL RBC 3.60 L (4.2-5.4) M/uL Hgb 9.1 L (12.0-16.0) g/dL Hct 30.9 L (37-47) % MCV 85.8 (80-100) fL MCH 25.3 (25-34) pg MCHC 29.4 L (32-36) g/dL RDW Std Deviation 53.9 H (36.4-46.3) fL RDW Coeff of Conchis 17.2 H (11.5-14.5) % Plt Count 477 H (130-400) K/uL MPV 9.0 (7.4-10.4) fL Immature Gran % (Auto) 5.1 % Neut % (Auto) 71.3 % Lymph % (Auto) 9.3 % [place] % (Auto) 10.6 % Eos % (Auto) 3.2 % Baso % (Auto) 0.5 % Neut # (Auto) 7.85 H (1.4-6.5) K/uL Lymph # (Auto) 1.02 L (1.2-3.4) K/uL [place] # (Auto) 1.17 H (0.11-0.59) K/uL Eos # (Auto) 0.35 (0-0.5) K/uL Baso # (Auto) 0.06 (0-0.2) K/uL Immature Gran # (Auto) 0.56 H (0.00-0.02) K/uL Absolute Nucleated RBC 0.04 H (0-0) K/uL Nucleated RBC % (auto) 0.3 % Polychromasia 1+ Tear Drop Cells 1+ PT 20.3 H (9.0-12.0) Seconds INR 2.0 H (0.9-1.1) APTT 32.2 H (21.0-31.0) Seconds PTT Ratio 1.2 Sodium (136-145) mmol/L Potassium (3.5-5.1) mmol/L Chloride (98-107) mmol/L Carbon Dioxide (21-32) mmol/L Anion Gap (3-11) BUN (7-18) mg/dl Creatinine (0.6-1.2) mg/dl Est Cr Clr Drug Dosing ml/min Est GFR ( Amer) Est GFR (Non-Af Amer) BUN/Creatinine Ratio (10-20) Glucose (70-99) mg/dl Calcium (8.5-10.1) mg/dl Total Bilirubin (0.2-1) mg/dl AST (15-37) U/L ALT (12-78) U/L Alkaline Phosphatase (45-117) U/L Total Protein (6.4-8.2) gm/dl Albumin (3.4-5.0) gm/dl Globulin (2.5-4.0) gm/dl Albumin/Globulin Ratio (0.9-2) Blood Type AB Negative Antibody Screen NEGATIVE 04/08/20 Range/Units 12:45 WBC (4.8-10.8) K/uL RBC (4.2-5.4) M/uL Hgb (12.0-16.0) g/dL Hct (37-47) % MCV (80-100) fL MCH (25-34) pg MCHC (32-36) g/dL RDW Std Deviation (36.4-46.3) fL RDW Coeff of Conchis (11.5-14.5) % Plt Count (130-400) K/uL MPV (7.4-10.4) fL Immature Gran % (Auto) % Neut % (Auto) % Lymph % (Auto) % [place] % (Auto) % Eos % (Auto) % Baso % (Auto) % Neut # (Auto) (1.4-6.5) K/uL Lymph # (Auto) (1.2-3.4) K/uL [place] # (Auto) (0.11-0.59) K/uL Eos # (Auto) (0-0.5) K/uL Baso # (Auto) (0-0.2) K/uL Immature Gran # (Auto) (0.00-0.02) K/uL Absolute Nucleated RBC (0-0) K/uL Nucleated RBC % (auto) % Polychromasia Tear Drop Cells PT (9.0-12.0) Seconds INR (0.9-1.1) APTT (21.0-31.0) Seconds PTT Ratio Sodium 141 (136-145) mmol/L Potassium 3.8 (3.5-5.1) mmol/L Chloride 109 H (98-107) mmol/L Carbon Dioxide 25 (21-32) mmol/L Anion Gap 7.0 (3-11) BUN 19 H (7-18) mg/dl Creatinine 0.94 (0.6-1.2) mg/dl Est Cr Clr Drug Dosing 48.8 ml/min Est GFR ( Amer) 73.8 Est GFR (Non-Af Amer) 63.7 BUN/Creatinine Ratio 20.2 H (10-20) Glucose 107 H (70-99) mg/dl Calcium 9.5 (8.5-10.1) mg/dl Total Bilirubin 0.3 (0.2-1) mg/dl AST 14 L (15-37) U/L ALT 10 L (12-78) U/L Alkaline Phosphatase 91 (45-117) U/L Total Protein 6.8 (6.4-8.2) gm/dl Albumin 2.4 L (3.4-5.0) gm/dl Globulin 4.4 H (2.5-4.0) gm/dl Albumin/Globulin Ratio 0.5 L (0.9-2) Blood Type Antibody Screen [facility] 04/08/20 12:45 Sodium 141 Potassium 3.8 Chloride 109 H Carbon Dioxide 25 BUN 19 H Creatinine 0.94 Glucose 107 H Calcium 9.5 Liver Function 04/08/20 Range/Units 12:45 Total Bilirubin 0.3 (0.2-1) mg/dl AST 14 L (15-37) U/L ALT 10 L (12-78) U/L Alkaline Phosphatase 91 (45-117) U/L Albumin 2.4 L (3.4-5.0) gm/dl Diagnostic Findings CT abd/pelvis: IMPRESSION: 1. Findings are consistent with a nonspecific colitis extending from the hepatic flexure to the rectosigmoid. This is similar to prior examinations and likely on an infectious or inflammatory basis. Clinical correlation will be required. 2. Bibasilar pulmonary nodules are similar appearance to 04/02/[address] scan. These are likely on an infectious/inflammatory basis. See report of the recent chest CT for detailed findings. 3. Advanced coronary artery calcification. 4. A 12 mm indeterminant hyperdense lesion in the lower pole of the left kidney is similar to prior studies. 5. Cholelithiasis. 6. Additional findings as above. Code Status & VTE Plan VTE Prophylaxis Plan VTE Prophylaxis will be ordered: No Supervising Physician Co-Signing Physician Notes Patient was seen and examined by me, care coordinated with Shirley Mendes PA-C. Please see her note above for further details. Mrs. Carter is a 64-year-old female with Hx of Crohn's disease and multiple readmissions due to GI bleed, insulin-dependent T2DM, history of chronic LLE DVT/PE anticoagulated with warfarin and ivcf in place, CKD III, recurrent C. diff and HTN who presents with bloody bowel movements x 3 days. Pt is lying in bed, in no acute distress. She is alert and oriented and answering questions appropriately. Patients sister is at bedside. Lungs are clear to auscultation bilaterally without any wheezing rhonchi or crackles. Heart sounds regular, no murmurs noted. Abdomen is soft, slightly tender to palpation in lower abdominal quadrants, nondistended, positive bowel sounds. Patient is moving all 4 extremities spontaneously without difficulty. No lower extremity edema noted. Skin is warm, dry, well perfused without any rashes or lesions. Patient is currently hemodynamically stable, hemoglobin above 9, no need for transfusion at this time. Will hold warfarin for now, INR is currently 2.0 however patient is well-known to have very fluctuating INRs. Will recheck INR in the morning. Monitor H&H closely, Consult GI. Recent history of C. difficile colitis, will obtain stool culture and C. difficile. Iván Alvarez MD (1) Hypothyroidism Hypothyroidism type: unspecified Qualified Code(s): E03.9 - Hypothyroidism, unspecified (2) Diabetes mellitus type 2, controlled Diabetes mellitus complication status: with other specified complication Diabetes mellitus group home insulin use: unspecified group home insulin use status Qualified Code(s): E11.69 - Type 2 diabetes mellitus with other specified complication
[2020-04-08] MEDS ORDERED: TRIAMCINOLONE ACET 0.1% CR 15 GM TUBE TOP PRN (18:42)
[2020-04-08] MEDS ORDERED: DICYCLOMINE HCL 10 MG CAP PO PRN (18:42)
[2020-04-08] MEDS ORDERED: TRAZODONE HCL 50 MG TAB PO PRN (18:42)
[2020-04-08] MEDS ORDERED: FLUOCINONIDE 0.05% OINT 15 GM TUBE EXT PRN (18:42)
[2020-04-08] MEDS ORDERED: SODIUM CHLORIDE 0.9% 250 ML IV PRN ×3 (19:15→21:14)
[2020-04-08] MEDS ORDERED: DEXTROSE 50% 50 ML SYRINGE IV PRN (19:15)
[2020-04-08] MEDS ORDERED: GLUCOSE 10 TABS/TUBE PO PRN (19:15)
[2020-04-08] MEDS ORDERED: CARBOHYDRATES FOR HYPOGLYCEMIA PO PRN (19:15)
[2020-04-08] MEDS ORDERED: GLUCOSE 40% GEL 15 GM TUBE PO PRN (19:15)
[2020-04-08] MEDS ORDERED: GLUCAGON FOR INJ 1 MG VIAL SQ PRN (19:15)
[2020-04-08] MEDS ORDERED: CHOLESTYRAMINE LIGHT 4 GM PKT PO SCH ×2 (19:45→22:30)
[2020-04-08 20:10] LABS: Hematocrit (blood only) 26.3 % (37-47); Hemoglobin 7.9 g/dL (12.0-16.0)
[2020-04-08] MEDS ORDERED: INSULIN ASPART 100 UNITS/ML 3 ML PEN SC SCH (21:00)
[2020-04-08] MEDS: INSULIN GLARGINE SOLOSTAR 100 UNITS/ML 3 ML PEN SC SCH (21:32)
[2020-04-08] MEDS: POTASSIUM CHLORIDE 20 MEQ TABCR PO SCH (21:34)
[2020-04-08] MEDS: predniSONE 5 MG TAB PO SCH (21:34)
[2020-04-08] MEDS: ATORVASTATIN 40 MG TAB PO SCH (21:35)
[2020-04-08] MEDS: BUDESONIDE EC 3 MG CAP PO SCH (22:24)
[2020-04-08] MEDS: IRON POLYSACCHARIDE COMPLEX 150 MG CAPSULE PO SCH (22:24)
[2020-04-09] MEDS: INSULIN ASPART 100 UNITS/ML 3 ML PEN SC SCH ×6 (00:18→20:44)
[2020-04-09] MEDS: PANTOprazole 40 MG in DEXTROSE 5% 100 ML IV SCH ×5 (01:45→13:12)
[2020-04-09] MEDS: LEVOTHYROXINE SODIUM 75 MCG TABLET PO SCH (06:13)
--- NOTE | 2020-04-09 06:49 | Electrocardiogram Report ---
Test Reason : Blood Pressure : / mmHG Vent. Rate : 095 BPM Atrial Rate : 095 BPM P-R Int : 130 ms QRS Dur : 072 ms QT Int : 336 ms P-R-T Axes : 054 -10 020 degrees QTc Int : 422 ms Normal sinus rhythm Inferior infarct (cited on or before 08-APR-2020) Cannot rule out Anterior infarct (cited on or before 08-APR-2020) Abnormal ECG When compared with ECG of 28-MAR-2020 15:49, No significant change was found Confirmed by Claudio Atkinson ([id number]) on 04/09/2020 6:49:24 AM Referred By: REFERRED SELF Confirmed By:Claudio Atkinson
[2020-04-09 07:36] LABS: Hematocrit (blood only) 29.5 % (37-47); Mean Corpuscular Hemoglobin 25.6 pg (25-34); Mean Corpuscular Hgb Conc 30.5 g/dL (32-36); Nucleated RBC # (auto) 0.02 K/uL (0-0); Nucleated RBC % (auto) 0.2 %; Platelet Count 393 K/uL (130-400); RDW Standard Deviation 52.5 fL (36.4-46.3); Red Blood Count 3.51 M/uL (4.2-5.4)
[2020-04-09 07:44] LABS: INR 1.5 (0.9-1.1); Prothrombin Time 15.6 Seconds (9.0-12.0)
[2020-04-09] MEDS: predniSONE 5 MG TAB PO SCH (07:55)
[2020-04-09] MEDS: POTASSIUM CHLORIDE 20 MEQ TABCR PO SCH ×2 (07:55→20:38)
[2020-04-09] MEDS: BUDESONIDE EC 3 MG CAP PO SCH (07:55)
[2020-04-09] MEDS: SERTRALINE HCL 50 MG TABLET PO SCH (07:55)
[2020-04-09] MEDS: FUROSEMIDE 20 MG TAB PO SCH (07:55)
[2020-04-09] MEDS: CHOLECALCIFEROL 1,000 UNITS 25 MCG TAB PO SCH (07:56)
[2020-04-09] MEDS: LACTOBACILLUS ACIDOPHILUS (FLORANEX) TAB PO SCH ×3 (07:56→17:25)
[2020-04-09] MEDS: ANASTROZOLE 1 MG TAB PO SCH (07:56)
[2020-04-09] MEDS: IRON POLYSACCHARIDE COMPLEX 150 MG CAPSULE PO SCH ×2 (07:56→20:38)
[2020-04-09] MEDS: INSULIN GLARGINE SOLOSTAR 100 UNITS/ML 3 ML PEN SC SCH ×2 (07:57→20:24)
[2020-04-09] MEDS: CALCIUM 600MG + VIT D 400 IU TAB PO SCH (07:57)
[2020-04-09 08:18] LABS: BUN Creatinine Ratio 15.2 (10-20); Calcium 8.9 mg/dl (8.5-10.1); Creatinine Clr Calc Pharmacy 53.1 ml/min; Est GFR (Non-African American) 69.9; Potassium 3.9 mmol/L (3.5-5.1)
[2020-04-09] MEDS ORDERED: PANTOprazole 40 MG TAB PO SCH (09:00)
--- NOTE | 2020-04-09 14:58 | Hospitalist Progress Note ---
Date of Service April 09, 2020 Assessment & Plan (1) Acute GI bleeding: Bright red blood per rectum associated with diarrhea Likely secondary to flareup of Crohn's Hemoglobin was 7.9 on admission and is a status post 2 units of blood transfusion Continues to have bloody diarrhea GI consulted We will monitor H&H Patient remains n.p.o. (2) Inflammatory bowel disease: This is a 64-year-old female who has significant PMH of insulin-dependent T2DM, history of chronic LLE DVT/PE anticoagulated with warfarin and ivcf in place, CKD III, Crohn's disease, recurrent C. diff and HTN who presents with bloody bowel movements x 3 days. -Likely has a flareup of Crohn's disease -This is patient's third hospitalization in the past 5 weeks for similar acute on chronic rectal bleeding in setting of Crohn's disease, anticoagulation for chronic DVT/PE -Normal EGD on 03/29 and Coumadin was resumed the following day -Returning with bloody bowel movements x 3 days. Hgb stable at 9.1. INR of 2.0 -Continue Crohn's regimen of prednisone, budesonide. Due to start Stelara home injections in a few weeks -Awaiting GI evaluation (3) 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: History of chronic DVT to left popliteal vein/PE anticoagulated on warfarin -Status post IVC filter -INR 2.0 - hold warfarin -Repeat INR in AM-INR is 1.5 as of 04/09/2020 -Patient desires to have newer anticoagulants to avoid repeated blood test (4) CKD (chronic kidney disease), stage III: Cr at baseline ~1. Monitor with daily BMP (5) Diabetes mellitus type 2, controlled: A1c 8.9 02/01/2020 -Lantus/novolog per protocol -BSG AC HS (6) Depression: Continue Zoloft (7) Hypothyroidism: Continue levothyroxine DVT Ppx: hold warfarin in setting of probable GIB Code status:FULL PCP: Yokasta Dispo: Admit to [facility] Plan to return home once medically stable. Admission and Anticipated Discharge Date Admission Date: April 08, 2020 Subjective 04/09/2020 The patient was seen and examined in medical telemetry unit She still continues to have bloody diarrhea and has had 4 bloody bowel movements since this morning Complains to have lower abdominal discomfort mostly on the left lower quadrant Denies any nausea and/or vomiting or abdominal distention Review of Systems Review of Systems: All systems reviewed and are unremarkable except as noted below Gastrointestinal: + abdominal pain, + diarrhea/loose stools and + blood in stools; no nausea and no vomiting Physical Exam Physical Exam: Lying in bed comfortably Constitutional: well developed, well nourished and + acute distress (Minimal discomfort in the abdomen); not ill appearing Eyes: PERRL, conjunctivae normal, anicteric sclerae ENMT: external ear and nose normal, oropharynx normal Neck: trachea midline, no thyromegaly Respiratory: normal respiratory effort; no respiratory distress Auscultation: lungs clear to auscultation bilaterally Cardiovascular: Rate/Rhythm: regular rate and regular rhythm Heart Sounds: no murmur Gastrointestinal (Abdomen): Inspection/Auscultation: + abdomen distended (Minimally distended) and normal bowel sounds Percussion/Palpation: + abdomen tender (Left lower quadrant without guarding) and abdomen soft Musculoskeletal: No acute arthritis involving any joints Neurologic: moves all extremities; no focal motor deficits Psychiatric: A+Ox3, euthymic affect Lymphatic: no cervical or axillary lymphadenopathy Results & Data Results & Data ([facility]) Vital Signs (Past 12 Hours) Vital Signs Temp Pulse Pulse Resp BP Pulse Ox 04/09/20 12:02 37.0 C 73 18 113/70 96 04/09/20 07:17 36.7 C 78 18 108/69 96 04/09/20 07:15 67 04/09/20 03:31 36.5 C 73 17 115/70 97 Laboratory Results Short CBC 04/08/20 04/09/20 Range/Units 19:56 07:15 WBC 8.10 (4.8-10.8) K/uL Hgb 7.9 L 9.0 L (12.0-16.0) g/dL Hct 26.3 L 29.5 L (37-47) % Plt Count 393 (130-400) K/uL BMP 04/09/20 07:15 Sodium 141 Potassium 3.9 Chloride 111 H Carbon Dioxide 23 BUN 13 Creatinine 0.87 Glucose 92 Calcium 8.9 Medications Administered Current Inpatient Medications Anastrozole (Anastrozole 1 Mg Tab) 1 mg PO QAM [facility] Stop: 05/09/20 08:59 Last Admin: 04/09/20 07:56 Dose: 1 mg Documented by: Atorvastatin Calcium (Atorvastatin 40 Mg Tab) 40 mg PO HS RACHEL Stop: 05/08/20 20:59 Last Admin: 04/08/20 21:35 Dose: 40 mg Documented by: Budesonide (Budesonide Ec 3 Mg Cap) 9 mg PO QAM RACHEL Stop: 05/08/20 19:59 Last Admin: 04/09/20 07:55 Dose: 9 mg Documented by: Dextrose (Dextrose 50% 50 Ml Syringe) 25 - 50 ml IV UD PRN; Protocol PRN Reason: Hypoglycemia Protocol Stop: 05/08/20 19:14 Dicyclomine HCl (Dicyclomine Hcl 10 Mg Cap) 10 mg PO BID PRN PRN Reason: abdominal cramping Stop: 05/08/20 18:41 Fluocinonide (Fluocinonide 0.05% Oint 15 Gm Tube) 1 appln EXT BID PRN PRN Reason: Rash Stop: 05/08/20 18:41 Furosemide (Furosemide 20 Mg Tab) 20 mg PO QAM RACHEL Stop: 05/09/20 08:59 Last Admin: 04/09/20 07:55 Dose: 20 mg Documented by: Glucagon (Glucagon For Inj 1 Mg Vial) 1 mg SQ UD PRN; Protocol PRN Reason: Hypoglycemia Protocol Stop: 05/08/20 19:14 Glucose (Glucose 10 Tabs/Tube) 4 - 8 tabs PO UD PRN; Protocol PRN Reason: Hypoglycemia Protocol Stop: 05/08/20 19:14 Glucose (Glucose 40% Gel 15 Gm Tube) 15 - 30 gm PO UD PRN; Protocol PRN Reason: Hypoglycemia Protocol Stop: 05/08/20 19:14 Pantoprazole Sodium 40 mg/ (Dextrose) 100 mls @ 20 mls/hr IV Q5H RACHEL Stop: 05/08/20 13:13 Last Admin: 04/09/20 13:12 Dose: 8 mg/hr, 20 mls/hr Documented by: Insulin Aspart (Insulin Aspart 100 Units/Ml 3 Ml Pen) 0 units SC Q6 RACHEL Stop: 05/09/20 00:00 Last Admin: 04/09/20 12:14 Dose: Not Given Documented by: Insulin Glargine (Insulin Glargine Solostar 100 Units/Ml 3 Ml Pen) 0 - 11 units SC BID RACHEL Stop: 05/08/20 20:59 Last Admin: 04/09/20 07:57 Dose: Not Given Documented by: Lactobacillus Acidophilus (Lactobacillus Acidophilus (Floranex) Tab) 1 tab PO TIDM RACHEL; Protocol Stop: 05/09/20 07:59 Last Admin: 04/09/20 11:58 Dose: 1 tab Documented by: Levothyroxine Sodium (Levothyroxine Sodium 75 Mcg Tablet) 75 mcg PO DAILYBB RACHEL Stop: 05/09/20 06:29 Last Admin: 04/09/20 06:13 Dose: 75 mcg Documented by: Miscellaneous (Carbohydrates For Hypoglycemia ) 15 - 30 gm PO UD PRN PRN Reason: Hypoglycemia Protocol Stop: 05/08/20 19:14 Multivitamins/Minerals (Calcium 600mg + Vit D 400 Iu Tab) 1 [facility] [place] Stop: 05/09/20 08:59 Last Admin: 04/09/20 07:57 Dose: 1 tab Documented by: Pantoprazole Sodium (Pantoprazole 40 Mg Tab) 40 mg [facility] [place] Stop: 05/09/20 08:59 Polysaccharide Iron Complex (Iron Polysaccharide Complex 150 Mg Capsule) 150 mg PO BID RACHEL Stop: 05/08/20 20:59 Last Admin: 04/09/20 07:56 Dose: 150 mg Documented by: Potassium Chloride (Potassium Chloride 20 Meq Tabcr) 20 meq PO BID RACHEL Stop: 05/08/20 20:59 Last Admin: 04/09/20 07:55 Dose: 20 meq Documented by: Prednisone (Prednisone 5 Mg Tab) 5 mg PO DAILY RACHEL Stop: 05/08/20 19:44 Last Admin: 04/09/20 07:55 Dose: 5 mg Documented by: Sertraline HCl (Sertraline Hcl 50 Mg Tablet) 50 mg PO QAM [facility] Stop: 05/09/20 08:59 Last Admin: 04/09/20 07:55 Dose: 50 mg Documented by: Trazodone HCl (Trazodone Hcl 50 Mg Tab) 50 mg PO HS PRN PRN Reason: Sleep Stop: 05/08/20 18:41 Triamcinolone Acetonide (Triamcinolone Acet 0.1% Cr 15 Gm Tube) 1 appln TOP BID PRN PRN Reason: Rash Stop: 05/08/20 18:41 Vitamin D (Cholecalciferol 1,000 Units 25 Mcg Tab) 1,000 units PO QAM RACHEL Stop: 05/09/20 08:59 Last Admin: 04/09/20 07:56 Dose: 1,000 units Documented by: (1) Diabetes mellitus type 2, controlled 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
--- NOTE | 2020-04-09 16:09 | Gastrointestinal Consultation ---
Date of Consultation April 09, 2020 Assessment & Plan (1) Acute GI bleeding: Hold coumadin No evidence of UGI bleed and recent EGD w/o abnormalities thus no clear indication for protonix drip. May change to po 40mg daily. Present on Admission?: Yes (2) Crohn's colitis: 1. C-diff (-), will increase steroids. 2. Will check inflammatory markers. 3. Appreciate primary hospitalists management of IV fluids and electrolyte replacement. 4. Solumedrol 20mg IV TID. 5. DC budesonide and po prednisone for now. When improved will discharge on prednisone 40mg daily, low slow taper (40 QD x 1 wk, 30 QD x 1 wk, 25 QD x 1 wk, 20 QD x 1 wk) Recheck in GI clinic in 2-3 wks after discharge for further taper instruction. 6. No indication for budesonide who on IV or PO prednisone, so no need to restart on discharge. 7. No GI indication for antibiotics. 8. Clear liquids po for now, will advance after improvement. Present on Admission?: Yes Supervising Physician Co-Signing Physician Notes Attending attestation I have seen, examined this patient, and agree with the findings and above by our mid-level provider the following additions Patient with indeterminate IBD you see versus possible Crohn's. After weaning down prednisone as an outpatient she Developed rectal bleedingWithout evidence of volume depletion or. She's feeling better now after one unit of transfusion of blood,.C-diff negative, a treat with IV steroids and follow. History of Present Illness Reason for Consultation: UC Flare Requesting Physician: Dr. Koo Attending Physician: Shannan Koo MD History of Present Illness Ms. 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 difficile, who presented to the ED yesterday for rectal bleeding, SOB, weakness. She has had multiple admission for rectal bleeding most recently being discharged on 03/31 on prednisone 5mg daily which she has continued. She was just started on Stelara having received the initial loading infusion on 02/19/20. On arrival, hb 9.1. With hydration hb dropped to 7.9 and she received one unit of RBCs. Most recent Hb 9.0. She reports that rectal bleeding has been ongoing, but that it increased in amt and she felt weak/SOB yesterday so presented to the ED. She reports having passed about 12 liquid bloody BMs in the past 24 hrs. She has chronic lower abdomen discomfort, "knots," but no severe abdominal pain. INR was 2 on arrival and has been held. C-diff on arrival was (-). Allergies Allergy/AdvReac Type Severity Reaction Status Date / Time aztreonam [From Azactam] Allergy Intermediate flushed Verified 04/08/20 13:48 /itching dorzolamide Allergy Unknown EYE LID Verified 04/08/20 13:48 SWELLING latanoprost Allergy Unknown EYE LID Verified 04/08/20 13:48 SWELLING Penicillins Allergy Unknown Rash Verified 04/08/20 13:48 thimerosal Allergy Unknown Unknown Verified 04/08/20 13:48 timolol Allergy Unknown EYE LID Verified 04/08/20 13:48 SWELLING empagliflozin AdvReac Severe Confusion Unverified 04/08/20 13:48 [From Jardiance] Home Medications Home Medications Medication Instructions Recorded Confirmed Type calcium citrate-vitamin D3 1 tab PO QAM 05/12/18 04/08/20 History [Citracal-D3 Petites] cholecalciferol (vitamin D3) 1,000 unit PO QAM 05/12/18 04/08/20 History [Vitamin D3] levothyroxine 75 mcg PO DAILYBB 05/12/18 04/08/20 History Probiotic Acidophilus Biobeads 1 tab PO TIDM 03/22/19 04/08/20 History furosemide [Lasix] 20 mg PO QAM 03/22/19 04/08/20 History sertraline [Zoloft] 50 mg PO QAM 03/22/19 04/08/20 History anastrozole 1 mg PO QAM 07/21/19 04/08/20 History atorvastatin 40 mg PO HS 07/21/19 04/08/20 History potassium chloride [Klor-Con M20] 20 meq PO BID 07/21/19 04/08/20 History Lantus Solostar U-100 Insulin 22 unit SUBCUT QAM 01/01/20 04/08/20 History trazodone 50 mg PO HS PRN 01/01/20 04/08/20 History polysaccharide iron complex 150 mg PO BID 01/31/20 04/08/20 History [Ferrex 150] budesonide 9 mg PO QAM 02/15/20 04/08/20 History fluocinonide 1 applic TOPICAL BID PRN 02/15/20 04/08/20 History pantoprazole 40 mg PO QAM 02/15/20 04/08/20 History triamcinolone acetonide 1 applic TOPICAL BID PRN 02/15/20 04/08/20 History dicyclomine 10 mg PO BID PRN 03/08/20 04/08/20 History prednisone 5 mg PO DAILY #30 tab 03/11/20 04/08/20 Rx cholestyramine (with sugar) 1 ea PO BID 03/28/20 04/08/20 History [Questran] warfarin 2 mg PO 5XWK 03/28/20 04/08/20 History warfarin 4 mg PO MOFR 03/28/20 04/08/20 History Patient History Medical History (Updated 04/09/20 @ 16:28 by Rajeev Orr) Acute hyponatremia Acute kidney injury Anemia Breast cancer, right 2012--SX & RADIATION, NO CHEMO C. 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) "Abnormal right breast mammogram Biopsy-positive for DCIS Status post lumpectomy with no residual tumor stage pTis NXMX Estrogen receptor positive, progesterone receptor positive Status post completion of radiation therapy 02/22/2013 received 3850 cGy utilizing accelerated partial breast treatment " Obesity (BMI 30-39.9) Surgical History H/O breast biopsy 2012--RIGHT MALIGNANT H/O lumpectomy History of appendectomy History of colonoscopy History of lumpectomy of right breast "+ HERBIE ER/UT + in 10/2012 s/p RT" History of tonsillectomy and adenoidectomy Hx of appendectomy S/P insertion of IVC (inferior vena caval) filter 03/29/[address] BUSTAMANTE Status post glaucoma surgery BILT Family History Mother Family history of diabetes mellitus Heart disease Father Family history of diabetes mellitus Heart disease Sister Family history of diabetes mellitus Grandmother Family history of diabetes mellitus PATERNAL Uterine cancer Sister Crohn's disease Social History Smoking Status: Never smoker Second Hand Exposure: No; Hx Alcohol Use: No Hx Substance Use: No Preferred Language: Lithuanian Communication Ability: Effective Visual Impairment: No Limitations Hearing Ability: Normal Overnight Houseperson Required: No Beliefs That Will Affect Care: None marital status: Single Current Living Situation: Family Current Living Situation Comment: alone How many Children do You have: 0 Other Information That Helps Us Care for You: No Feels Safe at Home: Yes Safety Concerns: Feels Safe At This Time Assistive Devices: Glasses Physical Exam Constitutional: WD/WN, vitals as above + obese (mildly); no acute distress facial/trunkal fat distribution typical of chronic steroids ENMT: external ear and nose normal, oropharynx normal Neck: trachea midline, no thyromegaly Respiratory: normal respiratory effort, lungs clear to auscultation Cardiovascular: RRR, no murmur, no edema Gastrointestinal (Abdomen): Inspection/Auscultation: abdomen normal to inspection and normal bowel sounds; abdomen not distended Percussion/Palpation: + abdomen tender (minimal bilat, mid abd tenderness) and abdomen soft Musculoskeletal: no cyanosis or clubbing, extremities motor strength 5/5 Skin: no rashes, warm and dry appears pale Neurologic: PERRL, EOMI, accommodation nl, no face palsy, no dysarthria Psychiatric: A+Ox3, euthymic affect Lymphatic: no cervical or axillary lymphadenopathy Results & Data ([facility]) Vital Signs (Past 12 Hours) Vital Signs Temp Pulse Pulse Resp BP Pulse Ox 04/09/20 15:50 36.8 C 73 18 115/72 96 04/09/20 15:38 78 04/09/20 12:02 37.0 C 73 18 113/70 96 04/09/20 07:17 36.7 C 78 18 108/69 96 04/09/20 07:15 67 Laboratory Results WBC 8, Hb 9, Hct 29, platelets 393, Na 141,K 3.9, BUN 13, Cr 0.87,Glucose 92. Diagnostic Findings CT with IV, no oral contrast on 04/08/20: 1. Findings are consistent with a nonspecific colitis extending from the hepatic flexure to the rectosigmoid. This is similar to prior examinations and likely on an infectious or inflammatory basis. Clinical correlation will be required. 2. Bibasilar pulmonary nodules are similar appearance to 04/02/[address] scan. These are likely on an infectious/inflammatory basis. See report of the recent chest CT for detailed findings. 3. Advanced coronary artery calcification. 4. A 12 mm indeterminant hyperdense lesion in the lower pole of the left kidney is similar to prior studies. 5. Cholelithiasis. 6. Additional findings as above. Recent EGD by Dr. Felton: 03/29/20: - Normal esophagus. - Normal stomach. - Normal examined duodenum. Recent Colonoscopy Dr. Chow 02/02/20: - The examined portion of the ileum was normal. - Crohn's Colitis with severe active disease. Secondary nonresponder to therapy. - Non-bleeding internal hemorrhoids.
[2020-04-09] MEDS: ATORVASTATIN 40 MG TAB PO SCH (20:38)
[2020-04-09] MEDS: methylPREDNISolone 20 MG in SYRINGE 0 ML IV SCH (21:31)
[2020-04-10] MEDS: LEVOTHYROXINE SODIUM 75 MCG TABLET PO SCH (05:29)
[2020-04-10] MEDS: methylPREDNISolone 20 MG in SYRINGE 0 ML IV SCH ×3 (05:29→21:20)
[2020-04-10 07:40] LABS: INR 1.5 (0.9-1.1); Prothrombin Time 15.8 Seconds (9.0-12.0)
[2020-04-10 07:58] LABS: Calcium 9.1 mg/dl (8.5-10.1); Est GFR (African American) 67.7; Est GFR (Non-African American) 58.4; Potassium 3.9 mmol/L (3.5-5.1)
[2020-04-10 08:15] LABS: Basophils # (auto) 0.01 K/uL (0-0.2); Basophils % (auto) 0.2 %; Eosinophils # (auto) 0.01 K/uL (0-0.5); Eosinophils % (auto) 0.2 %; Hematocrit (blood only) 32.7 % (37-47); Immature Granulocytes # (auto) 0.16 K/uL (0.00-0.02); Immature Granulocytes % (auto) 2.5 %; Lymphocytes # (auto) 0.67 K/uL (1.2-3.4); Lymphocytes % (auto) 10.6 %; Mean Corpuscular Hemoglobin 25.7 pg (25-34); Mean Corpuscular Volume 84.1 fL (80-100); Mean Platelet Volume 8.9 fL (7.4-10.4); Monocytes # (auto) 0.39 K/uL (0.11-0.59); Monocytes % (auto) 6.2 %; Neutrophils % (auto) 80.3 %; Platelet Count 458 K/uL (130-400); RDW Coefficient of Variation 17.1 % (11.5-14.5); Red Blood Count 3.89 M/uL (4.2-5.4); White Blood Count 6.34 K/uL (4.8-10.8)
[2020-04-10] MEDS: ANASTROZOLE 1 MG TAB PO SCH (08:15)
[2020-04-10] MEDS: SERTRALINE HCL 50 MG TABLET PO SCH (08:15)
[2020-04-10] MEDS: FUROSEMIDE 20 MG TAB PO SCH (08:15)
[2020-04-10] MEDS: CHOLECALCIFEROL 1,000 UNITS 25 MCG TAB PO SCH (08:15)
[2020-04-10] MEDS: CALCIUM 600MG + VIT D 400 IU TAB PO SCH (08:16)
[2020-04-10] MEDS: LACTOBACILLUS ACIDOPHILUS (FLORANEX) TAB PO SCH ×3 (08:16→17:06)
[2020-04-10] MEDS: IRON POLYSACCHARIDE COMPLEX 150 MG CAPSULE PO SCH ×2 (08:16→21:16)
[2020-04-10] MEDS: POTASSIUM CHLORIDE 20 MEQ TABCR PO SCH ×2 (08:16→21:17)
[2020-04-10 08:18] LABS: Mean Corpuscular Hgb Conc 30.6 g/dL (32-36)
[2020-04-10] MEDS: INSULIN ASPART 100 UNITS/ML 3 ML PEN SC SCH ×4 (08:21→21:19)
[2020-04-10] MEDS: INSULIN GLARGINE SOLOSTAR 100 UNITS/ML 3 ML PEN SC SCH ×2 (08:22→21:18)
[2020-04-10] MEDS ORDERED: PANTOprazole 40 MG TAB PO SCH (09:00)
--- NOTE | 2020-04-10 13:31 | Gastroenterology Progress Note ---
Date of Service April 10, 2020 Assessment & Plan (1) Acute GI bleeding: Hold coumadin No evidence of UGI bleed and recent EGD w/o abnormalities thus no clear indication for protonix drip. May change to po 40mg daily. (2) Crohn's colitis: 1. Cont Solumedrol 40mg Q 8. If continues to improve will likely change to po tomorrow. 2. When improved will discharge on prednisone 40mg daily, low slow taper (40 QD x 1 wk, 30 QD x 1 wk, 25 QD x 1 wk, 20 QD x 1 wk) Recheck in GI clinic in 2-3 wks after discharge for further taper instruction. 3. Low fiber diet. Admission and Anticipated Discharge Date Admission Date: April 08, 2020 Supervising Physician Co-Signing Physician Notes Attending attestation I have seen, examined this patient, and agree with the findings and above by our mid-level provider MARK Lewis, with the following additions: - Patient is much improved, plan for d/c today Subjective 04/10/2020: 64 yr old female with Crohn's colitis vs. UC hospitalized for rectal bleeding, on anticoagulant for hx of DVT/PEs. Improvement in BMs: 2 with dark red/black blood today, 2 were brown; all urgent Abd pain not worsened, mild bilat lower Eating liquids w/o worsened pain. Hb stable post tranfusion at 10. BUN normal. Review of Systems Review of Systems: ROS: Gen: Denies weakness, fevers, weight loss Eyes: No eye redness, or pain, no recent vision changes Resp: No SOB, no cough Cardio: No palpitations/irregular beats, no chest pain GI: See HPI, otherwise normal : Denies pain on urination Skin: No jaundice, itching or new rashes Physical Exam Constitutional: WD/WN, vitals as above + obese (mildly); no acute distress ENMT: external ear and nose normal, oropharynx normal Neck: trachea midline, no thyromegaly Respiratory: normal respiratory effort, lungs clear to auscultation Cardiovascular: RRR, no murmur, no edema Gastrointestinal (Abdomen): Inspection/Auscultation: abdomen normal to inspection and normal bowel sounds; abdomen not distended Percussion/Palpation: + abdomen tender (minimal bilat, mid abd tenderness) and abdomen soft Musculoskeletal: no cyanosis or clubbing, extremities motor strength 5/5 Skin: no rashes, warm and dry Neurologic: PERRL, EOMI, accommodation nl, no face palsy, no dysarthria Psychiatric: A+Ox3, euthymic affect Lymphatic: no cervical or axillary lymphadenopathy Results & Data ([facility]) Vital Signs (Past 12 Hours) Vital Signs Temp Pulse Pulse Resp BP Pulse Ox 04/10/20 12:00 36.9 C 76 18 136/82 98 04/10/20 07:17 76 04/10/20 07:13 36.6 C 76 17 127/76 98 04/10/20 03:20 36.6 C 75 18 106/66 95
--- NOTE | 2020-04-10 14:22 | Hospitalist Progress Note ---
Date of Service April 10, 2020 Assessment & Plan (1) Acute GI bleeding: Bright red blood per rectum associated with diarrhea Likely secondary to flareup of Crohn's Hemoglobin was 7.9 on admission and is a status post 2 units of blood transfusion Continues to have bloody diarrhea GI consulted appreciate input and recommendation. Tolerating clears orally (2) Inflammatory bowel disease: This is a 64-year-old female who has significant PMH of insulin-dependent T2DM, history of chronic LLE DVT/PE anticoagulated with warfarin and ivcf in place, CKD III, Crohn's disease, recurrent C. diff and HTN who presents with bloody bowel movements x 3 days. -Likely has a flareup of Crohn's disease -This is patient's third hospitalization in the past 5 weeks for similar acute on chronic rectal bleeding in setting of Crohn's disease, anticoagulation for chronic DVT/PE -Normal EGD on 03/29 and Coumadin was resumed the following day -Returning with bloody bowel movements x 3 days. Hgb stable at 9.1. INR of 2.0 -Continue Crohn's regimen of prednisone, budesonide. Due to start Stelara home injections in a few weeks -Has been on intravenous Solu-Medrol and steroid taper on discharge (3) 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: History of chronic DVT to left popliteal vein/PE anticoagulated on warfarin -Status post IVC filter -INR 2.0 - hold warfarin -Repeat INR in AM-INR is 1.5 as of 04/09/2020 -Patient desires to have newer anticoagulants to avoid repeated blood test -We will continue Coumadin (4) CKD (chronic kidney disease), stage III: Cr at baseline ~1. Monitor with daily BMP (5) Diabetes mellitus type 2, controlled: A1c 8.9 02/01/2020 -Lantus/novolog per protocol -BSG AC HS (6) Depression: Continue Zoloft (7) Hypothyroidism: Continue levothyroxine DVT Ppx: hold warfarin in setting of probable GIB Code status:FULL PCP: [facility] Dispo: Admit to [facility]. Plan to return home once medically stable. Admission and Anticipated Discharge Date Admission Date: April 08, 2020 Subjective 04/09/2020 The patient was seen and examined in medical telemetry unit She still continues to have bloody diarrhea and has had 4 bloody bowel movements since this morning Complains to have lower abdominal discomfort mostly on the left lower quadrant Denies any nausea and/or vomiting or abdominal distention 04/10/2020 Patient was seen and examined in medical telemetry unit She has been feeling a lot better today with decreasing left lower quadrant pain and decreasing bloody diarrhea She has been tolerating clears orally Review of Systems Review of Systems: All systems reviewed and are unremarkable except as noted below Gastrointestinal: + abdominal pain, + diarrhea/loose stools and + blood in stools; no nausea and no vomiting Physical Exam Physical Exam: Sitting on a chair without any acute distress Constitutional: well developed, well nourished, + acute distress (Minimal discomfort in the abdomen) and + thin; not ill appearing Eyes: PERRL, conjunctivae normal, anicteric sclerae ENMT: external ear and nose normal, oropharynx normal Neck: trachea midline, no thyromegaly Respiratory: normal respiratory effort; no respiratory distress Auscultation: lungs clear to auscultation bilaterally Cardiovascular: Rate/Rhythm: regular rate and regular rhythm Heart Sounds: no murmur Gastrointestinal (Abdomen): Inspection/Auscultation: normal bowel sounds; abdomen not distended (Minimally distended) Percussion/Palpation: + abdomen tender (Left lower quadrant without guarding) and abdomen soft Musculoskeletal: No acute arthritis involving any joint Neurologic: moves all extremities; no focal motor deficits Psychiatric: A+Ox3, euthymic affect Lymphatic: no cervical or axillary lymphadenopathy Results & Data Results & Data ([facility]) Vital Signs (Past 12 Hours) Vital Signs Temp Pulse Pulse Resp BP Pulse Ox 04/10/20 12:00 36.9 C 76 18 136/82 98 04/10/20 07:17 76 04/10/20 07:13 36.6 C 76 17 127/76 98 04/10/20 03:20 36.6 C 75 18 106/66 95 Laboratory Results Short CBC 04/10/20 04/10/20 Range/Units 07:07 07:54 WBC Cancelled 6.34 Hgb Cancelled 10.0 L Hct Cancelled 32.7 L Plt Count Cancelled 458 H BMP 04/10/20 07:07 Sodium 140 Potassium 3.9 Chloride 109 H Carbon Dioxide 22 BUN 15 Creatinine 1.01 Glucose 176 H Calcium 9.1 Medications Administered Current Inpatient Medications Anastrozole (Anastrozole 1 Mg Tab) 1 mg PO QAM [facility] Stop: 05/09/20 08:59 Last Admin: 04/10/20 08:15 Dose: 1 mg Documented by: Atorvastatin Calcium (Atorvastatin 40 Mg Tab) 40 mg PO HS [facility] Stop: 05/08/20 20:59 Last Admin: 04/09/20 20:38 Dose: 40 mg Documented by: Dextrose (Dextrose 50% 50 Ml Syringe) 25 - 50 ml IV UD PRN; Protocol PRN Reason: Hypoglycemia Protocol Stop: 05/08/20 19:14 Dicyclomine HCl (Dicyclomine Hcl 10 Mg Cap) 10 mg PO BID PRN PRN Reason: abdominal cramping Stop: 05/08/20 18:41 Fluocinonide (Fluocinonide 0.05% Oint 15 Gm Tube) 1 appln EXT BID PRN PRN Reason: Rash Stop: 05/08/20 18:41 Furosemide (Furosemide 20 Mg Tab) 20 mg PO QAM [facility] Stop: 05/09/20 08:59 Last Admin: 04/10/20 08:15 Dose: 20 mg Documented by: Glucagon (Glucagon For Inj 1 Mg Vial) 1 mg SQ UD PRN; Protocol PRN Reason: Hypoglycemia Protocol Stop: 05/08/20 19:14 Glucose (Glucose 10 Tabs/Tube) 4 - 8 tabs PO UD PRN; Protocol PRN Reason: Hypoglycemia Protocol Stop: 05/08/20 19:14 Glucose (Glucose 40% Gel 15 Gm Tube) 15 - 30 gm PO UD PRN; Protocol PRN Reason: Hypoglycemia Protocol Stop: 05/08/20 19:14 Methylprednisolone 20 mg/ (Syringe) 0.32 mls @ 1.5 mls/min IV Q8 [facility] Stop: 05/09/20 21:59 Last Admin: 04/10/20 13:32 Dose: 1.5 mls/min Documented by: Insulin Aspart (Insulin Aspart 100 Units/Ml 3 Ml Pen) 0 units SC ACHS [facility] Stop: 05/09/20 19:29 Last Admin: 04/10/20 12:24 Dose: 4 units Documented by: Insulin Glargine (Insulin Glargine Solostar 100 Units/Ml 3 Ml Pen) 0 - 11 units SC BID [facility] Stop: 05/08/20 20:59 Last Admin: 04/10/20 08:22 Dose: 8 units Documented by: Lactobacillus Acidophilus (Lactobacillus Acidophilus (Floranex) Tab) 1 tab PO TIDM [facility]; Protocol Stop: 05/09/20 07:59 Last Admin: 04/10/20 12:24 Dose: 1 tab Documented by: Levothyroxine Sodium (Levothyroxine Sodium 75 Mcg Tablet) 75 mcg PO DAILYBB [facility] Stop: 05/09/20 06:29 Last Admin: 04/10/20 05:29 Dose: 75 mcg Documented by: Miscellaneous (Carbohydrates For Hypoglycemia ) 15 - 30 gm PO UD PRN PRN Reason: Hypoglycemia Protocol Stop: 05/08/20 19:14 Multivitamins/Minerals (Calcium 600mg + Vit D 400 Iu Tab) 1 tab PO QAM [facility] Stop: 05/09/20 08:59 Last Admin: 04/10/20 08:16 Dose: 1 tab Documented by: Pantoprazole Sodium (Pantoprazole 40 Mg Tab) 40 mg PO QAM [facility] Stop: 05/09/20 08:59 Polysaccharide Iron Complex (Iron Polysaccharide Complex 150 Mg Capsule) 150 mg PO BID [facility] Stop: 05/08/20 20:59 Last Admin: 04/10/20 08:16 Dose: 150 mg Documented by: Potassium Chloride (Potassium Chloride 20 Meq Tabcr) 20 meq PO BID [facility] Stop: 05/08/20 20:59 Last Admin: 04/10/20 08:16 Dose: 20 meq Documented by: Sertraline HCl (Sertraline Hcl 50 Mg Tablet) 50 mg PO QAM [facility] Stop: 05/09/20 08:59 Last Admin: 04/10/20 08:15 Dose: 50 mg Documented by: Trazodone HCl (Trazodone Hcl 50 Mg Tab) 50 mg PO HS PRN PRN Reason: Sleep Stop: 05/08/20 18:41 Triamcinolone Acetonide (Triamcinolone Acet 0.1% Cr 15 Gm Tube) 1 appln TOP BID PRN PRN Reason: Rash Stop: 05/08/20 18:41 Vitamin D (Cholecalciferol 1,000 Units 25 Mcg Tab) 1,000 units PO QAM [facility] Stop: 05/09/20 08:59 Last Admin: 04/10/20 08:15 Dose: 1,000 units Documented by: (1) Diabetes mellitus type 2, controlled Diabetes mellitus mcfp insulin use: unspecified 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
[2020-04-10] MEDS: MESALAMINE 800 MG TABCR PO SCH (21:16)
[2020-04-10] MEDS: ATORVASTATIN 40 MG TAB PO SCH (21:17)
[2020-04-11] MEDS: LEVOTHYROXINE SODIUM 75 MCG TABLET PO SCH (05:34)
[2020-04-11] MEDS: methylPREDNISolone 20 MG in SYRINGE 0 ML IV SCH ×2 (05:34→13:28)
[2020-04-11] MEDS: IRON POLYSACCHARIDE COMPLEX 150 MG CAPSULE PO SCH (08:02)
[2020-04-11] MEDS: CHOLECALCIFEROL 1,000 UNITS 25 MCG TAB PO SCH (08:02)
[2020-04-11] MEDS: SERTRALINE HCL 50 MG TABLET PO SCH (08:02)
[2020-04-11] MEDS: FUROSEMIDE 20 MG TAB PO SCH (08:02)
[2020-04-11] MEDS: ANASTROZOLE 1 MG TAB PO SCH (08:03)
[2020-04-11] MEDS: LACTOBACILLUS ACIDOPHILUS (FLORANEX) TAB PO SCH ×2 (08:03→12:17)
[2020-04-11] MEDS: CALCIUM 600MG + VIT D 400 IU TAB PO SCH (08:03)
[2020-04-11] MEDS: POTASSIUM CHLORIDE 20 MEQ TABCR PO SCH (08:03)
[2020-04-11] MEDS: MESALAMINE 800 MG TABCR PO SCH ×2 (08:03→13:28)
[2020-04-11] MEDS: INSULIN GLARGINE SOLOSTAR 100 UNITS/ML 3 ML PEN SC SCH (08:05)
[2020-04-11] MEDS: INSULIN ASPART 100 UNITS/ML 3 ML PEN SC SCH ×2 (08:06→12:17)
[2020-04-11 10:29] LABS: Hematocrit (blood only) 33.9 % (37-47); Hemoglobin 10.4 g/dL (12.0-16.0); Mean Corpuscular Hemoglobin 25.7 pg (25-34); Mean Corpuscular Hgb Conc 30.7 g/dL (32-36); Mean Corpuscular Volume 83.7 fL (80-100); Mean Platelet Volume 8.9 fL (7.4-10.4); Platelet Count 631 K/uL (130-400); RDW Coefficient of Variation 16.9 % (11.5-14.5); RDW Standard Deviation 51.6 fL (36.4-46.3); Red Blood Count 4.05 M/uL (4.2-5.4); White Blood Count 10.37 K/uL (4.8-10.8)
[2020-04-11 10:47] LABS: Ovalocytes 1+
[2020-04-11 10:51] LABS: Lymphocytes % (manual) 8.7 %
[2020-04-11 10:52] LABS: Metamyelocytes % (manual) 0.9 %; Monocytes % (manual) 4.3 %; Myelocytes % (manual) 6.1 %
--- NOTE | 2020-04-11 11:44 | Gastroenterology Progress Note ---
Date of Service April 11, 2020 Assessment & Plan (1) Acute GI bleeding: From UC and potentiated by warfarin. Rectal bleeding improved. May consider restarting anticoagulation if medically required. We should see some improvement in her UC activity soon with continued prednisone and on Stelera. (2) Crohn's colitis: 1. On discharge, change to prednisone 40mg daily, low slow taper (40 QD x 1 wk, 30 QD x 1 wk, 25 QD x 1 wk, 20 QD x 1 wk) Recheck in GI clinic in 2-3 wks after discharge for further taper instruction. 2. Continue Stelera 3. Continue po mesalamine. 4. Advance to Low fiber diet. 5. GI will sign off. Admission and Anticipated Discharge Date Admission Date: April 08, 2020 Subjective 64 yr old with Crohn's colitis vs. UC, recently started on Stelera. Complicated by need for chronic anticoagulation. Admitted for rectal bleeding. Received 1 unit RBCs transfusion. Hb Stable post transfusion at 10.4. . Improvement today: Reports 2BMs thus far today, now mauricio. Review of Systems Review of Systems: ROS: Gen: Denies weakness, fevers, weight loss Eyes: No eye redness, or pain, no recent vision changes Resp: No SOB, no cough Cardio: No palpitations/irregular beats, no chest pain GI: As per HPI, otherwise (-) : Denies pain on urination Skin: No jaundice, itching or new rashes Physical Exam Constitutional: WD/WN, vitals as above + obese (mildly); no acute distress ENMT: external ear and nose normal, oropharynx normal Neck: trachea midline, no thyromegaly Respiratory: normal respiratory effort, lungs clear to auscultation Cardiovascular: RRR, no murmur, no edema Gastrointestinal (Abdomen): Inspection/Auscultation: abdomen normal to inspection and normal bowel sounds; abdomen not distended Percus yohannes/Palpation: + abdomen tender (minimal bilat, mid abd tenderness) and abdomen soft Musculoskeletal: no cyanosis or clubbing, extremities motor strength 5/5 Skin: no rashes, warm and dry Neurologic: PERRL, EOMI, accommodation nl, no face palsy, no dysarthria Psychiatric: A+Ox3, euthymic affect Lymphatic: no cervical or axillary lymphadenopathy Results & Data ([facility]) Vital Signs (Past 12 Hours) Vital Signs Temp Pulse Pulse Resp BP Pulse Ox 10/01/20 11:23 36.8 C 84 20 119/69 96 04/11/20 07:16 36.4 C L 76 18 111/70 98 04/11/20 07:07 67 04/11/20 02:46 36.5 C 73 19 117/68 98 04/11/20 01:00 75
--- NOTE | 2020-04-11 12:24 | Hospitalist Progress Note ---
Date of Service April 11, 2020 Assessment & Plan (1) Acute GI bleeding: Bright red blood per rectum associated with diarrhea Likely secondary to flareup of Crohn's Hemoglobin was 7.9 on admission and is a status post 2 units of blood transfusion Continues to have bloody diarrhea GI consulted appreciate input and recommendation. Tolerating low fiber diet No more blood in the stool (2) Inflammatory bowel disease: This is a 64-year-old female who has significant PMH of insulin-dependent T2DM, history of chronic LLE DVT/PE anticoagulated with warfarin and ivcf in place, CKD III, Crohn's disease, recurrent C. diff and HTN who presents with bloody bowel movements x 3 days. -Likely has a flareup of Crohn's disease -This is patient's third hospitalization in the past 5 weeks for similar acute on chronic rectal bleeding in setting of Crohn's disease, anticoagulation for chronic DVT/PE -Normal EGD on 03/29 and Coumadin was resumed the following day -Returning with bloody bowel movements x 3 days. Hgb stable at 9.1. INR of 2.0 -Continue Crohn's regimen of prednisone, budesonide. Due to start Stelara home injections in a few weeks -Has been on intravenous Solu-Medrol and steroid taper on discharge -Denies any abdominal pain, distention and no more bloody diarrhea (3) 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: History of recurrent DVTs with pulmonary embolism and will require ongoing anticoagulation -INR 2.0 - hold warfarin -Repeat INR in AM-INR is 1.5 as of 04/09/2020 -Patient desires to have newer anticoagulants to avoid repeated blood test -We will continue Coumadin on discharge -We will have regular follow-up with the with Coumadin clinic (4) CKD (chronic kidney disease), stage III: Cr at baseline ~1. Monitor with daily BMP (5) Diabetes mellitus type 2, controlled: A1c 8.9 02/01/2020 -Lantus/novolog per protocol -BSG AC HS (6) Depression: Continue Zoloft (7) Hypothyroidism: Continue levothyroxine DVT Ppx: hold warfarin in setting of probable GIB Code status:FULL PCP: Yokasta Dispo: Admit to [facility]. Plan to return home once medically stable. Likely to be discharged this afternoon Admission and Anticipated Discharge Date Admission Date: April 08, 2020 Subjective 04/09/2020 The patient was seen and examined in medical telemetry unit She still continues to have bloody diarrhea and has had 4 bloody bowel movements since this morning Complains to have lower abdominal discomfort mostly on the left lower quadrant Denies any nausea and/or vomiting or abdominal distention 04/10/2020 Patient was seen and examined in medical telemetry unit She has been feeling a lot better today with decreasing left lower quadrant pain and decreasing bloody diarrhea She has been tolerating clears orally 04/11/2020 The patient was seen and examined in medical telemetry unit She had a formed stool this morning without any blood in it Her abdominal pain is much improved She has been tolerating low fiber diet and ambulating in the room without any di fficulties Review of Systems Review of Systems: All systems reviewed and are unremarkable except as noted b elow Gastrointestinal: no abdominal pain, no nausea, no vomiting, no diarrhea/loose stools and no blood in stools Physical Exam Physical Exam: Sitting on a chair without any acute distress Constitutional: well developed, well nourished, + acute distress (Minimal discomfort in the abdomen) and + thin; not ill appearing Eyes: PERRL, conjunctivae normal, anicteric sclerae ENMT: external ear and nose normal, oropharynx normal Neck: trachea midline, no thyromegaly Respiratory: normal respiratory effort; no respiratory distress Auscultation: lungs clear to auscultation bilaterally Cardiovascular: Rate/Rhythm: regular rate and regular rhythm Heart Sounds: no murmur Gastrointestinal (Abdomen): Inspection/Auscultation: normal bowel sounds; abdomen not distended (Minimally distended) Percussion/Palpation: abdomen soft; abdomen nontender (Left lower quadrant without guarding) Musculoskeletal: No acute arthritis involving any joint Neurologic: moves all extremities; no focal motor deficits Psychiatric: A+Ox3, euthymic affect Lymphatic: no cervical or axillary lymphadenopathy Results & Data Results & Data ([facility]) Vital Signs (Past 12 Hours) Vital Signs Temp Pulse Pulse Resp BP Pulse Ox 04/11/20 11:23 36.8 C 84 20 119/69 96 04/11/20 07:16 36.4 C L 76 18 111/70 98 04/11/20 07:07 67 04/11/20 02:46 36.5 C 73 19 117/68 98 04/11/20 01:00 75 Laboratory Results Short CBC 04/11/20 Range/Units 10:13 WBC 10.37 (4.8-10.8) K/uL Hgb 10.4 L (12.0-16.0) g/dL Hct 33.9 L (37-47) % Plt Count 631 H (130-400) K/uL Medications Administered Current Inpatient Medications Anastrozole (Anastrozole 1 Mg Tab) 1 mg PO QAM RACHEL Stop: 05/09/20 08:59 Last Admin: 04/11/20 08:03 Dose: 1 mg Documented by: Atorvastatin Calcium (Atorvastatin 40 Mg Tab) 40 mg PO HS RACHEL Stop: 05/08/20 20:59 Last Admin: 04/10/20 21:17 Dose: 40 mg Documented by: Dextrose (Dextrose 50% 50 Ml Syringe) 25 - 50 ml IV UD PRN; Protocol PRN Reason: Hypoglycemia Protocol Stop: 05/08/20 19:14 Dicyclomine HCl (Dicyclomine Hcl 10 Mg Cap) 10 mg PO BID PRN PRN Reason: abdominal cramping Stop: 05/08/20 18:41 Fluocinonide (Fluocinonide 0.05% Oint 15 Gm Tube) 1 appln EXT BID PRN PRN Reason: Rash Stop: 05/08/20 18:41 Furosemide (Furosemide 20 Mg Tab) 20 mg PO QAM RACHEL Stop: 05/09/20 08:59 Last Admin: 04/11/20 08:02 Dose: 20 mg Documented by: Glucagon (Glucagon For Inj 1 Mg Vial) 1 mg SQ UD PRN; Protocol PRN Reason: Hypoglycemia Protocol Stop: 05/08/20 19:14 Glucose (Glucose 10 Tabs/Tube) 4 - 8 tabs PO UD PRN; Protocol PRN Reason: Hypoglycemia Protocol Stop: 05/08/20 19:14 Glucose (Glucose 40% Gel 15 Gm Tube) 15 - 30 gm PO UD PRN; Protocol PRN Reason: Hypoglycemia Protocol Stop: 05/08/20 19:14 Methylprednisolone 20 mg/ (Syringe) 0.32 mls @ 1.5 mls/min IV Q8 RACHEL Stop: 05/09/20 21:59 Last Admin: 04/11/20 05:34 Dose: 1.5 mls/min Documented by: Insulin Aspart (Insulin Aspart 100 Units/Ml 3 Ml Pen) 0 units SC ACHS RACHEL Stop: 05/09/20 19:29 Last Admin: 04/11/20 12:17 Dose: 6 units Documented by: Insulin Glargine (Insulin Glargine Solostar 100 Units/Ml 3 Ml Pen) 0 - 11 units SC BID RACHEL Stop: 05/08/20 20:59 Last Admin: 04/11/20 08:05 Dose: 11 units Documented by: Lactobacillus Acidophilus (Lactobacillus Acidophilus (Floranex) Tab) 1 tab PO TIDM [facility]; Protocol Stop: 05/09/20 07:59 Last Admin: 04/11/20 12:17 Dose: 1 tab Documented by: Levothyroxine Sodium (Levothyroxine Sodium 75 Mcg Tablet) 75 mcg PO DAILYBB RACHEL Stop: 05/09/20 06:29 Last Admin: 04/11/20 05:34 Dose: 75 mcg Documented by: Mesalamine (Mesalamine 800 Mg Tabcr) 800 mg PO TID RACHEL Stop: 05/10/20 20:59 Last Admin: 04/11/20 08:03 Dose: 800 mg Documented by: Miscellaneous (Carbohydrates For Hypoglycemia ) 15 - 30 gm PO UD PRN PRN Reason: Hypoglycemia Protocol Stop: 05/08/20 19:14 Multivitamins/Minerals (Calcium 600mg + Vit D 400 Iu Tab) 1 tab PO QAM [facility] Stop: 05/09/20 08:59 Last Admin: 04/11/20 08:03 Dose: 1 tab Documented by: Pantoprazole Sodium (Pantoprazole 40 Mg Tab) 40 mg PO QAM [facility] Stop: 05/09/20 08:59 Polysaccharide Iron Complex (Iron Polysaccharide Complex 150 Mg Capsule) 150 mg PO BID [facility] Stop: 05/08/20 20:59 Last Admin: 04/11/20 08:02 Dose: 150 mg Documented by: Potassium Chloride (Potassium Chloride 20 Meq Tabcr) 20 meq PO BID RACHEL Stop: 05/08/20 20:59 Last Admin: 04/11/20 08:03 Dose: 20 meq Documented by: Sertraline HCl (Sertraline Hcl 50 Mg Tablet) 50 mg PO QAM [facility] Stop: 05/09/20 08:59 Last Admin: 04/11/20 08:02 Dose: 50 mg Documented by: Trazodone HCl (Trazodone Hcl 50 Mg Tab) 50 mg PO HS PRN PRN Reason: Sleep Stop: 05/08/20 18:41 Triamcinolone Acetonide (Triamcinolone Acet 0.1% Cr 15 Gm Tube) 1 appln TOP BID PRN PRN Reason: Rash Stop: 05/08/20 18:41 Vitamin D (Cholecalciferol 1,000 Units 25 Mcg Tab) 1,000 units PO QAM RACHEL Stop: 05/09/20 08:59 Last Admin: 04/11/20 08:02 Dose: 1,000 units Documented by: (1) Diabetes mellitus type 2, controlled 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
--- NOTE | 2020-04-12 09:45 | Discharge Summary ---
Date of Service April 12, 2020 Admission HPI Per Admitting Provider This is a 64-year-old female who has significant PMH of insulin-dependent T2DM, history of chronic LLE DVT/PE anticoagulated with warfarin and ivcf in place, CKD III, Crohn's disease, recurrent C. diff and HTN who presents with bloody bowel movements x 3 days. This is patient's third hospitalization in the past5 weeks for similar acute on chronic rectal bleeding. During most recent admission from 03/28 and 04/01, patient underwent EGD that was normal and Coumadin was resumed the following day. Since discharge, patient has been following with Coumadin clinic without issue until this weekend, and she had to bowel movements mixed with bright red blood. Yesterday, problems became more frequent and had bright red blood as well as black tarry material. Denies any associated fever, chills or abdominal pain. Has not yet followed up with GI service. For Crohn's treatment, patient underwent initial infusion for Stelara approximately 6 weeks ago and has GI follow-up in 2 weeks. INR today is 2.0. Last took Coumadin yesterday evening. Feels fatigued and has a "hollow feeling" in chest and epigastrium but denies any pain. Denies any lightheadedness, visual changes, near syncope, chest pain, palpitations, shortness of breath, nausea, vomiting, abdominal pain, dysuria or hematuria. Admission Exam Per Admitting Provider Physical Exam: General Appearance: WD/WN, vitals as above, NAD, sitting up in bed, pleasant, conversing easily, pale Head: normocephalic, atraumatic Eyes: normal inspection, PERRL, conjunctivae normal, anicteric sclerae ENT: external ear and nose normal, oropharynx normal Neck: normal visual inspection, trachea midline, no thyromegaly Respiratory: normal respiratory effort, lungs clear to auscultation, no wheeze, rales, rhonchi. No accessory muscle use Cardiovascular: regular rate, rhythm, no murmur appreciated, normal peripheral pulses, no BLE edema. Vessels: no JVD Chest: normal inspection of chest Abdomen/GI: normal bowel sounds, soft, nontender, no hepatosplenomegaly Extremities/Musculoskeletal: no cyanosis or clubbing, extremities motor strength 5/5 Neurologic: PERRL, EOMI, accommodation nl, no face palsy, no dysarthria, CN's II-XI intact bilaterally and moves all extremities Psychiatric: A+Ox3, euthymic affect Skin: no rashes, normal color, warm/dry Principal Diagnosis Acute lower GI bleed, Crohn's colitis, chronic DVT, diabetes type 2, hypothyroidism, depression Discharge Exam Constitutional well developed, well nourished, + acute distress (Minimal discomfort in the abdomen) and + thin; not ill appearing Eyes PERRL, conjunctivae normal, anicteric sclerae ENMT external ear and nose normal, oropharynx normal Neck trachea midline, no thyromegaly Respiratory normal respiratory effort; no respiratory distress Auscultation: lungs clear to auscultation bilaterally Cardiovascular Rate/Rhythm: regular rate and regular rhythm Heart Sounds: no murmur Gastrointestinal (Abdomen) Inspection/Auscultation: normal bowel sounds; abdomen not distended (Minimally distended) Percussion/Palpation: abdomen soft; abdomen nontender (Left lower quadrant without guarding) Neurologic moves all extremities; no focal motor deficits Psychiatric A+Ox3, euthymic affect Lymphatic no cervical or axillary lymphadenopathy Discharge Data Allergies Allergy/AdvReac Type Severity Reaction Status Date / Time aztreonam [From Azactam] Allergy Intermediate flushed Verified 04/08/20 13:48 /itching dorzolamide Allergy Unknown EYE LID Verified 04/08/20 13:48 SWELLING latanoprost Allergy Unknown EYE LID Verified 04/08/20 13:48 SWELLING Penicillins Allergy Unknown Rash Verified 04/08/20 13:48 thimerosal Allergy Unknown Unknown Verified 04/08/20 13:48 timolol Allergy Unknown EYE LID Verified 04/08/20 13:48 SWELLING empagliflozin AdvReac Severe Confusion Unverified 04/08/20 13:48 [From Jardiance] Consultations 04/08/20 16:52 ED Decision to Admit Stat 04/09/20 14:46 Consult Gastroenterology Routine Ordered Studies 04/08/20 12:54 CT abd pelvis IV con only Stat Hospital Course (1) Acute GI bleeding: Bright red blood per rectum associated with diarrhea Likely secondary to flareup of Crohn's Hemoglobin was 7.9 on admission and is a status post 2 units of blood transfusion Continues to have bloody diarrhea GI consulted appreciate input and recommendation. Tolerating low fiber diet No more blood in the stool (2) Inflammatory bowel disease: This is a 64-year-old female who has significant PMH of insulin-dependent T2DM, history of chronic LLE DVT/PE anticoagulated with warfarin and ivcf in place, CKD III, Crohn's disease, recurrent C. diff and HTN who presents with bloody bowel movements x 3 days. -Likely has a flareup of Crohn's disease -This is patient's third hospitalization in the past 5 weeks for similar acute on chronic rectal bleeding in setting of Crohn's disease, anticoagulation for chronic DVT/PE -Normal EGD on 03/29 and Coumadin was resumed the following day -Returning with bloody bowel movements x 3 days. Hgb stable at 9.1. INR of 2.0 -Continue Crohn's regimen of prednisone, budesonide. Due to start Stelara home injections in a few weeks -Has been on intravenous Solu-Medrol and steroid taper on discharge -Denies any abdominal pain, distention and no more bloody diarrhea (3) 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: History of recurrent DVTs with pulmonary embolism and will require ongoing anticoagulation -INR 2.0 - hold warfarin -Repeat INR in AM-INR is 1.5 as of 04/09/2020 -Patient desires to have newer anticoagulants to avoid repeated blood test -We will continue Coumadin on discharge -We will have regular follow-up with the with Coumadin clinic (4) CKD (chronic kidney disease), stage III: Cr at baseline ~1. Monitor with daily BMP (5) Diabetes mellitus type 2, controlled: A1c 8.9 02/01/2020 -Lantus/novolog per protocol -BSG AC HS (6) Depression: Continue Zoloft (7) Hypothyroidism: Continue levothyroxine DVT Ppx: hold warfarin in setting of probable GIB Code status:FULL PCP: Yokasta Dispo: Admit to [facility] Plan to return home once medically stable. Likely to be discharged this afternoon Total Time Total Time Spent Total Time Spent (In Minutes): 35 minutes Total Time Includes: Examination of the Patient, Discharge Planning, Medication Reconciliation and Communication With Other Providers Discharge Plan Discharge Items Patient Disposition: Home - Self-Care Reason For Visit: GI BLEED Discharge Diagnosis: Acute lower GI bleed, Crohn's colitis, chronic DVT, diabetes type 2, hypothyroidism, depression Condition on Discharge: Good Activity: Resume your previous activity Non-emergency contact: Primary Care Provider Call non-emergency contact if: you have any medication questions and your symptoms worsen Follow-up/Referrals: Isaias Templeton MD [Primary Care Provider] - 04/16/20 11:20 am (Date & Time 04/16/2020 11:20 AM Provider Isaias Templeton MD Department Family [facility] ) Diet: Low Fiber Addtl Attending Provider Instructions: Please take precaution to avoid falls Finish the course of prednisone as directed Keep regular appointment with Coumadin clinic Pending Studies at Discharge: No Stand-Alone Forms: [facility] agency[facility], Smoking Cessation Medications and DC Order Prescriptions: New mesalamine 800 mg Tablet,Delayed Release (Dr/Ec) 800 mg PO TID 30 Days Qty: 90 RF: 0 prednisone 10 mg tablet 10 mg PO UD Qty: 80 RF: 0 Continued furosemide [Lasix] 20 mg Tablet 20 mg PO QAM RF: 0 Probiotic Acidophilus Biobeads 12.9 mg (2 billion cell) Tablet,Delayed Release (Dr/Ec) 1 tab PO TIDM RF: 0 sertraline [Zoloft] 50 mg Tablet 50 mg PO QAM RF: 0 dicyclomine 10 mg capsule 10 mg PO BID PRN (Reason: abdominal cramping) RF: 0 prednisone 5 mg Tablet 5 mg PO DAILY Qty: 30 RF: 0 warfarin 4 mg tablet 2 mg PO 5XWK RF: 0 cholestyramine (with sugar) [Questran] 4 gram powder in packet 1 ea PO BID RF: 0 warfarin 4 mg tablet 4 mg PO MOFR RF: 0 levothyroxine 75 mcg Tablet 75 mcg PO DAILYBB RF: 0 cholecalciferol (vitamin D3) [Vitamin D3] 1,000 unit Tablet 1,000 unit PO QAM RF: 0 calcium citrate-vitamin D3 [Citracal-D3 Petites] 200 mg calcium -250 unit Tablet 1 tab PO QAM RF: 0 atorvastatin 40 mg tablet 40 mg PO HS RF: 0 anastrozole 1 mg Tablet 1 mg PO QAM RF: 0 potassium chloride [Klor-Con M20] 20 mEq Tablet,Er Particles/Crystals 20 meq PO BID RF: 0 trazodone 50 mg tablet 50 mg PO HS PRN (Reason: Sleep) RF: 0 Lantus Solostar U-100 Insulin 100 unit/mL (3 mL) insulin pen 22 unit SUBCUT QAM RF: 0 polysaccharide iron complex [Ferrex 150] 150 mg iron capsule 150 mg PO BID RF: 0 triamcinolone acetonide 0.1 % Cream 1 applic TOPICAL BID PRN (Reason: Rash) RF: 0 fluocinonide 0.05 % Ointment 1 applic TOPICAL BID PRN (Reason: Rash) RF: 0 budesonide 9 mg tablet,delayed and ext.release 9 mg PO QAM RF: 0 pantoprazole 40 mg tablet,delayed release (DR/EC) 40 mg PO QAM RF: 0 Discharge Orders: Discharge Order (Routine); Ordered 04/11/20 Ordered By: Shannan Koo Admission Data Admit Date/Time: 04/08/20 17:44 Attending Provider: Shannan Koo Admit Provider: Kirit Alvarez Primary Care Provider: Isaias Templeton Other Providers: Kirit Alvarez ; Florian Greco Other Interventions: Discharge Summary Assessment (RN) Last Done: 04/11/20 14:32
== END 2020-04-11 15:34 | disposition home or self-care (01) | DRG 386 ==
LOC: ED 11:53 → SUATTDRO 17:44 → 2W 17:44

== ENCOUNTER 2020-07-01 02:57 | Inpatient (IN) ==
[2020-07-01] MEDS ORDERED: fentaNYL citrate 100 MCG/2 ML VIAL IV ONE (03:38)
[2020-07-01] MEDS ORDERED: SODIUM CHLORIDE 0.9% 500 ML IV SCH (03:45)
[2020-07-01] MEDS ORDERED: methylPREDNISolone 125 MG/2 ML VIAL IV STA (03:46)
[2020-07-01 03:52] LABS: Hematocrit (blood only) 27.6 % (37-47); Hemoglobin 8.4 g/dL (12.0-16.0); Mean Corpuscular Hemoglobin 23.7 pg (25-34); Mean Corpuscular Hgb Conc 30.4 g/dL (32-36); Mean Platelet Volume 9.2 fL (7.4-10.4); Platelet Count 610 K/uL (130-400); RDW Coefficient of Variation 18.4 % (11.5-14.5); RDW Standard Deviation 51.8 fL (36.4-46.3); Red Blood Count 3.54 M/uL (4.2-5.4); White Blood Count 10.38 K/uL (4.8-10.8)
[2020-07-01 04:01] LABS: Albumin Level 1.8 gm/dl (3.4-5.0); BUN Creatinine Ratio 14.9 (10-20); Creatinine Clr Calc Pharmacy 49.5 ml/min; Est GFR (African American) 68.5; Est GFR (Non-African American) 59.1; Potassium 2.9 mmol/L (3.5-5.1)
[2020-07-01 04:04] LABS: Albumin Globulin Ratio 0.5 (0.9-2); Bilirubin,Total 0.2 mg/dl (0.2-1); Globulin 3.5 gm/dl (2.5-4.0); Total Protein 5.3 gm/dl (6.4-8.2)
[2020-07-01 04:20] LABS: Basophils # (auto) 0.05 K/uL (0-0.2); Basophils % (auto) 0.5 %; Eosinophils # (auto) 0.86 K/uL (0-0.5); Eosinophils % (auto) 8.3 %; Immature Granulocytes # (auto) 0.05 K/uL (0.00-0.02); Immature Granulocytes % (auto) 0.5 %; Lymphocytes # (auto) 2.55 K/uL (1.2-3.4); Lymphocytes % (auto) 24.6 %; Monocytes # (auto) 1.09 K/uL (0.11-0.59); Monocytes % (auto) 10.5 %; Neutrophils # (auto) 5.78 K/uL (1.4-6.5); Neutrophils % (auto) 55.6 %; Ovalocytes 1+; Polychromasia 1+
--- NOTE | 2020-07-01 04:34 | Emergency Department Note ---
Impression & Plan Acute lower GI bleeding ED Provider Note NAME: TYRESE PEÑALOZA AGE: 64 SEX: F ARRIVES VIA: Ambulance INFORMANT: Patient ED PROVIDER(S): Delia Garcia DO CHIEF COMPLAINT: Abdominal pain and diarrhea PLAN: Disposition: Admitted to the [facility] service Condition: Stable MEDICAL DECISION MAKING: This is a 64-year-old female patient with a history of Crohn's disease who presents to the emergency department with worsening abdominal pain and bloody stools. The patient has a history of previous episodes of bloody diarrhea, anemia requiring blood transfusion and hospitalization. However, the patient was recently placed on Eliquis secondary to DVT and PE. The patient remained hemodynamically stable while here in the emergency department. She was typed and screened for packed red blood cells. She is comfortable at the time of admission. Triage Nursing notes reviewed and agree them. Prior medical records reviewed Vital Signs: reviewed and remarkable for borderline hypotension Differential diagnosis: Exacerbation of Crohn's disease, anemia, hypovolemia, lower GI bleeding ER treatment provided: IV normal saline bolus Diagnostics interpreted by me: ECG: None Cardiac Monitoring: Normal sinus rhythm at a rate of 67. Laboratory studies: See below Imaging studies: As per stat rad CT abdomen pelvis with contrast: There is diffuse active proctocolitis, most prominently involving the transverse and left colon. No evidence of terminal ileitis. There is cholelithiasis. HPI: 64/F arrives for evaluation of abdominal pain and bloody diarrhea. The patient has history of Crohn's disease and developed increasing abdominal pain and diarrhea 3 days ago. The patient is noticed some blood in her stool 3 days ago but the bleeding became much heavier tonight. She also rates her pain as a 7/10. Patient was started on Eliquis approximately 1 month ago for PE/DVT. In route to the hospital, the patient began to feel cold and sweat. ROS: See above HPI for pertinent positives & negatives. A total of 10 systems reviewed and were otherwise negative. PAST MEDICAL HISTORY:See Below PAST SURGICAL HISTORY:See Below FAMILY HISTORY:See Below SOCIAL HISTORY:See Below HOME MEDICATIONS:See list ALLERGIES:See list VITALS:See Below PHYSICAL EXAMINATION: HEENT: Head - normocephalic and atraumatic Pupils are equal, round, and reactive to light. Extraocular eye muscles are intact, and sclera are anicteric. Nose - moist nasal mucosa without discharge. Mouth - moist buccal mucosa. Oropharynx is nonerythematous and there is no tonsillar exudate or edema noted. Neck: Supple; no cervical lymphadenopathy Heart: Regular rate and rhythm. There is a normal S1 and S2 with no murmurs, clicks, or gallops appreciated. Lungs: Clear to auscultation bilaterally with no wheezes, rales, or rhonchi. Abdomen: Soft, diffusely tender, nondistended, with good bowel sounds. There are no palpable pulsatile masses or hepatosplenomegaly. There is no guarding, rigidity, or rebound noted. Extremities: No evidence of cyanosis, clubbing, or edema. There are easily palpable peripheral pulses. Skin: Extremely pale, cool, and diaphoretic with good turgor and no rashes. ED COURSE: Times/Reassessments: 0325: The patient was evaluated in room C 11. A complete history and physical was performed. Previous electronic medical records were reviewed. An order was placed for continuous cardiac monitoring. The patient was in a normal sinus rhythm at a rate of 67. The patient was typed and screened for blood. She was given 125 mg of IV Solu- Medrol along with 0.5 mg of IV Dilaudid. The patient will go for CT scan of the abdomen/pelvis. Upon returning from radiology, the patient has moderate relief of the discomfort in her abdomen. The patient remained hemodynamically stable. She is noted to be anemic with a hemoglobin of 8.4 down from 10.4 just 2 months ago. The patient has a longstanding history of this including blood transfusions. I discussed the case with the [facility] and they will evaluate for further management. Delia Garcia DO Past Med/Surg History Medical History (Updated 07/01/20 @ 05:44 by Delia Garcia DO) Acute hyponatremia Acute kidney injury Anemia Breast cancer, right 2012--SX & RADIATION, NO CHEMO C. 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) "Abnormal right breast mammogram Biopsy-positive for DCIS Status post lumpectomy with no residual tumor stage pTis NXMX Estrogen receptor positive, progesterone receptor positive Status post completion of radiation therapy 02/22/2013 received 3850 cGy utilizing accelerated partial breast treatment " Obesity (BMI 30-39.9) Surgical History H/O breast biopsy 2012--RIGHT MALIGNANT H/O lumpectomy History of appendectomy History of colonoscopy History of lumpectomy of right breast "+ HERBIE ER/KS + in 10/2012 s/p RT" History of tonsillectomy and adenoidectomy Hx of appendectomy S/P insertion of IVC (inferior vena caval) filter 03/29/[address] BUSTAMANTE Status post glaucoma surgery BILT Family History Mother Family history of diabetes mellitus Heart disease Father Family history of diabetes mellitus Heart disease Sister Family history of diabetes mellitus Grandmother Family history of diabetes mellitus PATERNAL Uterine cancer Sister Crohn's disease Social History Smoking Status: Never smoker Second Hand Exposure: No; Hx Alcohol Use: No Hx Substance Use: No Preferred Language: Lithuanian Communication Ability: Effective Visual Impairment: No Limitations Hearing Ability: Normal [employer] Required: No Beliefs That Will Affect Care: None marital status: Single Current Living Situation: Family Current Living Situation Comment: alone How many Children do You have: 0 Feels Safe at Home: Yes Assistive Devices: Glasses Allergies Allergies Allergy/AdvReac Type Severity Reaction Status Date / Time aztreonam [From Azactam] Allergy Intermediate flushed Verified 07/01/20 04:20 /itching dorzolamide Allergy Mild EYE LID Verified 07/01/20 04:20 SWELLING latanoprost Allergy Mild EYE LID Verified 07/01/20 04:20 SWELLING Penicillins Allergy Mild Rash Verified 07/01/20 04:20 timolol Allergy Mild EYE LID Verified 07/01/20 04:20 SWELLING thimerosal Allergy Unknown Unknown Verified 07/01/20 04:20 empagliflozin AdvReac Severe Confusion Verified 07/01/20 04:20 [From Jardiance] Home Meds Home Medications Medication Instructions Recorded Confirmed calcium citrate-vitamin D3 1 tab PO QAM 05/12/18 07/01/20 [Citracal-D3 Petites] cholecalciferol (vitamin D3) 1,000 unit PO QAM 05/12/18 07/01/20 [Vitamin D3] levothyroxine 75 mcg PO DAILYBB 05/12/18 07/01/20 Probiotic Acidophilus Biobeads 1 tab PO TIDM 03/22/19 07/01/20 furosemide [Lasix] 20 mg PO QAM 03/22/19 07/01/20 sertraline [Zoloft] 50 mg PO QAM 03/22/19 07/01/20 atorvastatin 40 mg PO HS 07/21/19 07/01/20 potassium chloride [Klor-Con M20] 20 meq PO BID 07/21/19 07/01/20 pantoprazole 40 mg PO QAM 02/15/20 07/01/20 dicyclomine 10 mg PO BID PRN 03/08/20 07/01/20 cholestyramine (with sugar) 1 ea PO BID 03/28/20 07/01/20 [Questran] apixaban [Eliquis] 2.5 mg PO BID 04/18/20 07/01/20 ustekinumab [Stelara] 90 mg SUBCUT .Q8WK 04/18/20 07/01/20 Iron Infusion 1 dose IV .EVERY OTHER WEEK 07/01/20 07/01/20 insulin degludec [Tresiba 30 unit SUBCUT DAILY 07/01/20 07/01/20 FlexTouch U-200] mesalamine 800 mg PO TID 07/01/20 07/01/20 trazodone 50 - 100 mg PO HS PRN 07/01/20 07/01/20 Results & Data (ED) Vital Signs Vital Signs - 24 hr 07/01/20 03:04 07/01/20 03:36 07/01/20 03:45 Temperature 36.8 C Temperature Source Oral Pulse Rate 67 63 63 Pulse Rate [Right Finger] Pulse Rate from SpO2 Sensor 63 61 Pulse Rhythm Regular Pulse Rhythm [Right Finger] Pulse Strength Normal Pulse Strength [Right Finger] Respiratory Rate 17 24 24 Respiratory Effort / Characteristics Non-Labored Spontaneous Respiratory Depth Normal Respiratory Pattern Regular Blood Pressure 109/81 107/62 Blood Pressure [Right Arm] Blood Pressure Mean 90 83 Blood Pressure Mean [Right Arm] Blood Pressure Position Lying Blood Pressure Position [Right Arm] Pulse Oximetry 99 99 100 Oxygen Delivery Method Room Air Sepsis Recent Fever Within 48 Hours No Sepsis New/Unexplained Change in Mental Status No Sepsis Action Taken by Nursing No Action Required 07/01/20 03:50 07/01/20 04:00 07/01/20 04:01 Temperature Temperature Source Pulse Rate 70 61 62 Pulse Rate [Right Finger] Pulse Rate from SpO2 Sensor 70 61 61 Pulse Rhythm Pulse Rhythm [Right Finger] Pulse Strength Pulse Strength [Right Finger] Respiratory Rate 24 18 19 Respiratory Effort / Characteristics Respiratory Depth Respiratory Pattern Blood Pressure 104/57 L Blood Pressure [Right Arm] Blood Pressure Mean 77 Blood Pressure Mean [Right Arm] Blood Pressure Position Blood Pressure Position [Right Arm] Pulse Oximetry 95 100 100 Oxygen Delivery Method Sepsis Recent Fever Within 48 Hours Sepsis New/Unexplained Change in Mental Status Sepsis Action Taken by Nursing 07/01/20 04:10 07/01/20 04:20 07/01/20 04:30 Temperature Temperature Source Pulse Rate 60 60 61 Pulse Rate [Right Finger] Pulse Rate from SpO2 Sensor 60 59 L 61 Pulse Rhythm Pulse Rhythm [Right Finger] Pulse Strength Pulse Strength [Right Finger] Respiratory Rate 12 17 21 Respiratory Effort / Characteristics Respiratory Depth Respiratory Pattern Blood Pressure Blood Pressure [Right Arm] Blood Pressure Mean Blood Pressure Mean [Right Arm] Blood Pressure Position Blood Pressure Position [Right Arm] Pulse Oximetry 98 100 100 Oxygen Delivery Method Sepsis Recent Fever Within 48 Hours Sepsis New/Unexplained Change in Mental Status Sepsis Action Taken by Nursing 07/01/20 04:40 07/01/20 05:04 07/01/20 05:05 Temperature Temperature Source Pulse Rate 62 65 84 Pulse Rate [Right Finger] 62 Pulse Rate from SpO2 Sensor 60 64 79 Pulse Rhythm Pulse Rhythm [Right Finger] Regular Pulse Strength Pulse Strength [Right Finger] Normal Respiratory Rate 15 21 18 Respiratory Effort / Characteristics Non-Labored Respiratory Depth Normal Respiratory Pattern Regular Blood Pressure 112/73 Blood Pressure [Right Arm] 112/73 Blood Pressure Mean 82 Blood Pressure Mean [Right Arm] 86 Blood Pressure Position Blood Pressure Position [Right Arm] Lying Pulse Oximetry 100 100 100 Oxygen Delivery Method Room Air Sepsis Recent Fever Within 48 Hours Sepsis New/Unexplained Change in Mental Status Sepsis Action Taken by Nursing 07/01/20 05:10 07/01/20 05:20 07/01/20 05:30 Temperature Temperature Source Pulse Rate 76 64 66 Pulse Rate [Right Finger] Pulse Rate from SpO2 Sensor 70 66 67 Pulse Rhythm Pulse Rhythm [Right Finger] Pulse Strength Pulse Strength [Right Finger] Respiratory Rate 24 23 22 Respiratory Effort / Characteristics Respiratory Depth Respiratory Pattern Blood Pressure 105/46 L Blood Pressure [Right Arm] Blood Pressure Mean 74 Blood Pressure Mean [Right Arm] Blood Pressure Position Blood Pressure Position [Right Arm] Pulse Oximetry 94 99 98 Oxygen Delivery Method Sepsis Recent Fever Within 48 Hours Sepsis New/Unexplained Change in Mental Status Sepsis Action Taken by Nursing 07/01/20 05:31 07/01/20 05:40 07/01/20 05:50 Temperature Temperature Source Pulse Rate 69 65 71 Pulse Rate [Right Finger] Pulse Rate from SpO2 Sensor 68 69 71 Pulse Rhythm Pulse Rhythm [Right Finger] Pulse Strength Pulse Strength [Right Finger] Respiratory Rate 23 20 22 Respiratory Effort / Characteristics Respiratory Depth Respiratory Pattern Blood Pressure Blood Pressure [Right Arm] Blood Pressure Mean Blood Pressure Mean [Right Arm] Blood Pressure Position Blood Pressure Position [Right Arm] Pulse Oximetry 96 98 97 Oxygen Delivery Method Sepsis Recent Fever Within 48 Hours Sepsis New/Unexplained Change in Mental Status Sepsis Action Taken by Nursing 07/01/20 06:00 07/01/20 06:01 07/01/20 06:10 Temperature Temperature Source Pulse Rate 65 63 60 Pulse Rate [Right Finger] Pulse Rate from SpO2 Sensor 65 64 61 Pulse Rhythm Pulse Rhythm [Right Finger] Pulse Strength Pulse Strength [Right Finger] Respiratory Rate 22 19 25 H Respiratory Effort / Characteristics Respiratory Depth Respiratory Pattern Blood Pressure 116/79 Blood Pressure [Right Arm] Blood Pressure Mean 103 Blood Pressure Mean [Right Arm] Blood Pressure Position Blood Pressure Position [Right Arm] Pulse Oximetry 100 100 99 Oxygen Delivery Method Sepsis Recent Fever Within 48 Hours Sepsis New/Unexplained Change in Mental Status Sepsis Action Taken by Nursing 07/01/20 06:20 07/01/20 06:30 07/01/20 06:40 Temperature Temperature Source Pulse Rate 67 62 65 Pulse Rate [Right Finger] Pulse Rate from SpO2 Sensor 68 61 64 Pulse Rhythm Pulse Rhythm [Right Finger] Pulse Strength Pulse Strength [Right Finger] Respiratory Rate 17 23 24 Respiratory Effort / Characteristics Respiratory Depth Respiratory Pattern Blood Pressure 126/82 Blood Pressure [Right Arm] Blood Pressure Mean 100 Blood Pressure Mean [Right Arm] Blood Pressure Position Blood Pressure Position [Right Arm] Pulse Oximetry 100 100 99 Oxygen Delivery Method Sepsis Recent Fever Within 48 Hours Sepsis New/Unexplained Change in Mental Status Sepsis Action Taken by Nursing 07/01/20 06:50 07/01/20 07:00 07/01/20 07:01 Temperature Temperature Source Pulse Rate 67 73 93 H Pulse Rate [Right Finger] Pulse Rate from SpO2 Sensor 66 68 93 H Pulse Rhythm Pulse Rhythm [Right Finger] Pulse Strength Pulse Strength [Right Finger] Respiratory Rate 21 26 H 21 Respiratory Effort / Characteristics Respiratory Depth Respiratory Pattern Blood Pressure 125/53 L Blood Pressure [Right Arm] Blood Pressure Mean 101 Blood Pressure Mean [Right Arm] Blood Pressure Position Blood Pressure Position [Right Arm] Pulse Oximetry 100 100 99 Oxygen Delivery Method Sepsis Recent Fever Within 48 Hours Sepsis New/Unexplained Change in Mental Status Sepsis Action Taken by Nursing 07/01/20 07:10 07/01/20 07:20 07/01/20 07:30 Temperature Temperature Source Pulse Rate 97 H 97 H 67 Pulse Rate [Right Finger] Pulse Rate from SpO2 Sensor 77 81 69 Pulse Rhythm Pulse Rhythm [Right Finger] Pulse Strength Pulse Strength [Right Finger] Respiratory Rate 30 H 14 24 Respiratory Effort / Characteristics Respiratory Depth Respiratory Pattern Blood Pressure 148/70 H Blood Pressure [Right Arm] Blood Pressure Mean 81 Blood Pressure Mean [Right Arm] Blood Pressure Position Blood Pressure Position [Right Arm] Pulse Oximetry 89 L 92 98 Oxygen Delivery Method Sepsis Recent Fever Within 48 Hours Sepsis New/Unexplained Change in Mental Status Sepsis Action Taken by Nursing 07/01/20 07:31 Temperature Temperature Source Pulse Rate 70 Pulse Rate [Right Finger] Pulse Rate from SpO2 Sensor 69 Pulse Rhythm Pulse Rhythm [Right Finger] Pulse Strength Pulse Strength [Right Finger] Respiratory Rate 25 H Respiratory Effort / Characteristics Respiratory Depth Respiratory Pattern Blood Pressure Blood Pressure [Right Arm] Blood Pressure Mean Blood Pressure Mean [Right Arm] Blood Pressure Position Blood Pressure Position [Right Arm] Pulse Oximetry 99 Oxygen Delivery Method Sepsis Recent Fever Within 48 Hours Sepsis New/Unexplained Change in Mental Status Sepsis Action Taken by Nursing Laboratory Data Result diagrams: 07/01/20 02:38 07/01/20 02:38 Lab Results 07/01/20 07/01/20 07/01/20 Range/Units 02:38 02:38 03:38 WBC 10.38 (4.8-10.8) K/uL RBC 3.54 L (4.2-5.4) M/uL Hgb 8.4 L (12.0-16.0) g/dL Hct 27.6 L (37-47) % MCV 78.0 L (80-100) fL MCH 23.7 L (25-34) pg MCHC 30.4 L (32-36) g/dL RDW Std Deviation 51.8 H (36.4-46.3) fL RDW Coeff of Conchis 18.4 H (11.5-14.5) % Plt Count 610 H (130-400) K/uL MPV 9.2 (7.4-10.4) fL Immature Gran % (Auto) 0.5 % Neut % (Auto) 55.6 % Lymph % (Auto) 24.6 % [place] % (Auto) 10.5 % Eos % (Auto) 8.3 % Baso % (Auto) 0.5 % Neut # (Auto) 5.78 (1.4-6.5) K/uL Lymph # (Auto) 2.55 (1.2-3.4) K/uL [place] # (Auto) 1.09 H (0.11-0.59) K/uL Eos # (Auto) 0.86 H (0-0.5) K/uL Baso # (Auto) 0.05 (0-0.2) K/uL Immature Gran # (Auto) 0.05 H (0.00-0.02) K/uL Polychromasia 1+ Ovalocytes 1+ PT Cancelled INR Cancelled APTT Cancelled PTT Ratio Cancelled Sodium 141 (136-145) mmol/L Potassium 2.9 L (3.5-5.1) mmol/L Chloride 110 H (98-107) mmol/L Carbon Dioxide 22 (21-32) mmol/L Anion Gap 9.0 (3-11) BUN 15 (7-18) mg/dl Creatinine 1.00 (0.6-1.2) mg/dl Est Cr Clr Drug Dosing 49.5 ml/min Est GFR ( Amer) 68.5 Est GFR (Non-Af Amer) 59.1 BUN/Creatinine Ratio 14.9 (10-20) Glucose 62 L (70-99) mg/dl POC Glucose (70-99) mg/dl Estimat Average Glucose mg/dl Hemoglobin A1c (4.5-5.6) % Calcium 8.0 L (8.5-10.1) mg/dl Magnesium (1.8-2.4) mg/dl Total Bilirubin 0.2 (0.2-1) mg/dl AST 14 L (15-37) U/L ALT 8 L (12-78) U/L Alkaline Phosphatase 158 H (45-117) U/L Total Protein 5.3 L (6.4-8.2) gm/dl Albumin 1.8 L (3.4-5.0) gm/dl Globulin 3.5 (2.5-4.0) gm/dl Albumin/Globulin Ratio 0.5 L (0.9-2) Lipase 175 (73-393) U/L TSH (0.300-4.500) uIu/ml SARS-CoV-2 Ag (Rapid) (Negative) Blood Type Antibody Screen 07/01/20 07/01/20 07/01/20 Range/Units 04:12 04:12 04:12 WBC (4.8-10.8) K/uL RBC (4.2-5.4) M/uL Hgb (12.0-16.0) g/dL Hct (37-47) % MCV (80-100) fL MCH (25-34) pg MCHC (32-36) g/dL RDW Std Deviation (36.4-46.3) fL RDW Coeff of Conchis (11.5-14.5) % Plt Count (130-400) K/uL MPV (7.4-10.4) fL Immature Gran % (Auto) % Neut % (Auto) % Lymph % (Auto) % [place] % (Auto) % Eos % (Auto) % Baso % (Auto) % Neut # (Auto) (1.4-6.5) K/uL Lymph # (Auto) (1.2-3.4) K/uL [place] # (Auto) (0.11-0.59) K/uL Eos # (Auto) (0-0.5) K/uL Baso # (Auto) (0-0.2) K/uL Immature Gran # (Auto) (0.00-0.02) K/uL Polychromasia Ovalocytes PT INR APTT PTT Ratio Sodium (136-145) mmol/L Potassium (3.5-5.1) mmol/L Chloride (98-107) mmol/L Carbon Dioxide (21-32) mmol/L Anion Gap (3-11) BUN (7-18) mg/dl Creatinine (0.6-1.2) mg/dl Est Cr Clr Drug Dosing ml/min Est GFR ( Amer) Est GFR (Non-Af Amer) BUN/Creatinine Ratio (10-20) Glucose (70-99) mg/dl POC Glucose (70-99) mg/dl Estimat Average Glucose 174 mg/dl Hemoglobin A1c 7.7 H (4.5-5.6) % Calcium (8.5-10.1) mg/dl Magnesium 1.7 L (1.8-2.4) mg/dl Total Bilirubin (0.2-1) mg/dl AST (15-37) U/L ALT (12-78) U/L Alkaline Phosphatase (45-117) U/L Total Protein (6.4-8.2) gm/dl Albumin (3.4-5.0) gm/dl Globulin (2.5-4.0) gm/dl Albumin/Globulin Ratio (0.9-2) Lipase (73-393) U/L TSH 3.350 (0.300-4.500) uIu/ml SARS-CoV-2 Ag (Rapid) (Negative) Blood Type AB Negative Antibody Screen NEGATIVE 07/01/20 07/01/20 07/01/20 Range/Units 04:42 05:57 06:19 WBC (4.8-10.8) K/uL RBC (4.2-5.4) M/uL Hgb (12.0-16.0) g/dL Hct (37-47) % MCV (80-100) fL MCH (25-34) pg MCHC (32-36) g/dL RDW Std Deviation (36.4-46.3) fL RDW Coeff of Conchis (11.5-14.5) % Plt Count (130-400) K/uL MPV (7.4-10.4) fL Immature Gran % (Auto) % Neut % (Auto) % Lymph % (Auto) % [place] % (Auto) % Eos % (Auto) % Baso % (Auto) % Neut # (Auto) (1.4-6.5) K/uL Lymph # (Auto) (1.2-3.4) K/uL [place] # (Auto) (0.11-0.59) K/uL Eos # (Auto) (0-0.5) K/uL Baso # (Auto) (0-0.2) K/uL Immature Gran # (Auto) (0.00-0.02) K/uL Polychromasia Ovalocytes PT 11.8 INR 1.1 APTT 30.3 PTT Ratio 1.1 Sodium (136-145) mmol/L Potassium (3.5-5.1) mmol/L Chloride (98-107) mmol/L Carbon Dioxide (21-32) mmol/L Anion Gap (3-11) BUN (7-18) mg/dl Creatinine (0.6-1.2) mg/dl Est Cr Clr Drug Dosing ml/min Est GFR ( Amer) Est GFR (Non-Af Amer) BUN/Creatinine Ratio (10-20) Glucose (70-99) mg/dl POC Glucose 94 (70-99) mg/dl Estimat Average Glucose mg/dl Hemoglobin A1c (4.5-5.6) % Calcium (8.5-10.1) mg/dl Magnesium (1.8-2.4) mg/dl Total Bilirubin (0.2-1) mg/dl AST (15-37) U/L ALT (12-78) U/L Alkaline Phosphatase (45-117) U/L Total Protein (6.4-8.2) gm/dl Albumin (3.4-5.0) gm/dl Globulin (2.5-4.0) gm/dl Albumin/Globulin Ratio (0.9-2) Lipase (73-393) U/L TSH (0.300-4.500) uIu/ml SARS-CoV-2 Ag (Rapid) Negative (Negative) Blood Type Antibody Screen Administered Medications Discontinued Medications Fentanyl Citrate (Fentanyl Citrate 100 Mcg/2 Ml Vial) 50 mcg IV NOW ONE Stop: 07/01/20 03:39 Last Admin: 07/01/20 03:54 Dose: 50 mcg Documented by: [id number] Sodium Chloride (Nss) 500 mls @ 999 mls/hr IV .Q31M RACHEL Stop: 07/01/20 04:15 Last Infusion: 07/01/20 04:29 Dose: 0 mls/hr Documented by: [id number] Admin: 07/01/20 03:56 Dose: 999 mls/hr Documented by: [id number] Potassium Chloride (K Richard / Wtr) 10 meq in 100 mls @ 100 mls/hr IV Q1H RACHEL Stop: 07/01/20 06:14 Last Admin: 07/01/20 07:40 Dose: 100 mls/hr Documented by: [id number] Infusion: 07/01/20 07:40 Dose: 100 mls/hr Documented by: [id number] Admin: 07/01/20 06:52 Dose: 100 mls/hr Documented by: [id number] Ioversol (Ioversol 100ml) 100 ml IV ONCE ONE Stop: 07/01/20 05:06 Last Admin: 07/01/20 05:05 Dose: 93 ml Documented by: [id number] Methylprednisolone (Methylprednisolone 125 Mg/2 Ml Vial) 125 mg IV NOW STA Stop: 07/01/20 03:47 Last Admin: 07/01/20 03:54 Dose: 125 mg Documented by: [id number] Potassium Chloride (Potassium Chloride Crtab 20 Meq Tabcr) 60 meq PO NOW STA Stop: 07/01/20 06:31 Last Admin: 07/01/20 06:53 Dose: 60 meq Documented by: [id number] Discharge Plan Visit Data Chief Complaint: GI Bleed Stated Complaint: GI BLEED/ABDOMINAL PAIN ED Provider: Delia Garcia Discharge Problem: Acute lower GI bleeding Forms Stand Alone Forms: [facility] Prescriptions Prescriptions: No Action furosemide [Lasix] 20 mg Tablet 20 mg PO QAM RF: 0 Probiotic Acidophilus Biobeads 12.9 mg (2 billion cell) Tablet,Delayed Release (Dr/Ec) 1 tab PO TIDM RF: 0 sertraline [Zoloft] 50 mg Tablet 50 mg PO QAM RF: 0 dicyclomine 10 mg capsule 10 mg PO BID PRN (Reason: abdominal cramping) RF: 0 cholestyramine (with sugar) [Questran] 4 gram powder in packet 1 ea PO BID RF: 0 Eliquis 2.5 mg tablet 2.5 mg PO BID RF: 0 Stelara 90 mg/mL syringe 90 mg SUBCUT .Q8WK RF: 0 trazodone 50 mg tablet 50 - 100 mg PO HS PRN (Reason: Sleep) RF: 0 mesalamine 800 mg tablet,delayed release (DR/EC) 800 mg PO TID RF: 0 Tresiba FlexTouch U-200 200 unit/mL (3 mL) insulin pen 30 unit SUBCUT DAILY RF: 0 Iron Infusion 1 dose IV .EVERY OTHER WEEK RF: 0 levothyroxine 75 mcg Tablet 75 mcg PO DAILYBB RF: 0 cholecalciferol (vitamin D3) [Vitamin D3] 1,000 unit Tablet 1,000 unit PO QAM RF: 0 calcium citrate-vitamin D3 [Citracal-D3 Petites] 200 mg calcium -250 unit Tablet 1 tab PO QAM RF: 0 atorvastatin 40 mg tablet 40 mg PO HS RF: 0 potassium chloride [Klor-Con M20] 20 mEq Tablet,Er Particles/Crystals 20 meq PO BID RF: 0 pantoprazole 40 mg tablet,delayed release (DR/EC) 40 mg PO QAM RF: 0
[2020-07-01 05:05] LABS: INR 1.1 (0.9-1.1); Partial Thromboplastin Ratio 1.1; Partial Thromboplastin Time 30.3 Seconds (21.0-31.0); Prothrombin Time 11.8 Seconds (9.0-12.0)
[2020-07-01] MEDS ORDERED: IOVERSOL 100ml IV ONE (05:05)
--- NOTE | 2020-07-01 06:26 | History & Physical Report ---
Date of Service July 01, 2020 Assessment & Plan (1) Acute lower GI bleeding: Recurrent IBD flare up history recurrent PE DVT on Eliquis sp IVC filter placement Rule out recurrent C. difficile Acute on chronic anemia Hemoglobin drop from baseline hx R breast cancer status post surgery, radiation HTN, stable DM 2 on insulin requiring Patient currently hypoglycemic Suboptimal control as of recent hemoglobin A1c of 8.19 April 2020 Hypothyroidism, euthyroid as of today's TSH Hypokalemia secondary to bloody BM and home insulin. Medical telemetry Clear liquids for now Steroids for IBD flareup Stool C. difficile GI consult Re: L GIB, IBD flareup Hold Eliquis for now Replace potassium, check magnesium Basal insulin adjusted for clear liquid diet, ISS BG goal [id number], update hemoglobin A1c given hypoglycemic episode DVT prophylaxis. IVC filter in place, SCDs RE L GIB Full code Text document was generated using [employer] voice recognition software. It may contain grammatical or spelling errors. Kindly contact undersigned for clarification of any documentation item in question. History of Present Illness Chief Complaint: Bloody stools Primary Care Provider: Isaias Templeton MD History obtained from patient and records. 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 Last confinement April 2020 for L GIB, IBD flareup. Patient's Coumadin for recurrent DVT/PE switched to Eliquis about 2 months ago due to fluctuating INR levels in the setting of recurrent GI bleed by [facility]. Intermittent rectal bleed without pain from time to time. 3 days ago, patient noted achy generalized abdominal pain associated with wors ening lower GI bleed. Some nausea, no emesis. No fever, no chills. No chest pain, no S OB. Patient brought to the ER for evaluation. Medical History as above 2018 colonoscopy showed ulcerative colitis, healing rectal ulcer Surgical History : Breast biopsy, appendectomy, tonsillectomy Family History : Pancreatic cancer, Crohn's disease, DM, heart disease Personal/Social history : Non-smoker, no EtOH intake, retired [employer] employee Allergies Allergy/AdvReac Type Severity Reaction Status Date / Time aztreonam [From Azactam] Allergy Intermediate flushed Verified 07/01/20 04:20 /itching dorzolamide Allergy Mild EYE LID Verified 07/01/20 04:20 SWELLING latanoprost Allergy Mild EYE LID Verified 07/01/20 04:20 SWELLING Penicillins Allergy Mild Rash Verified 07/01/20 04:20 timolol Allergy Mild EYE LID Verified 07/01/20 04:20 SWELLING thimerosal Allergy Unknown Unknown Verified 07/01/20 04:20 empagliflozin AdvReac Severe Confusion Verified 07/01/20 04:20 [From Jardiance] Home Medications Medication Instructions Recorded Confirmed Type calcium citrate-vitamin D3 1 tab PO QAM 05/12/18 07/01/20 History [Citracal-D3 Petites] cholecalciferol (vitamin D3) 1,000 unit PO QAM 05/12/18 07/01/20 History [Vitamin D3] levothyroxine 75 mcg PO DAILYBB 05/12/18 07/01/20 History Probiotic Acidophilus Biobeads 1 tab PO TIDM 03/22/19 07/01/20 History furosemide [Lasix] 20 mg PO QAM 03/22/19 07/01/20 History sertraline [Zoloft] 50 mg PO QAM 03/22/19 07/01/20 History atorvastatin 40 mg PO HS 07/21/19 07/01/20 History potassium chloride [Klor-Con M20] 20 meq PO BID 07/21/19 07/01/20 History pantoprazole 40 mg PO QAM 02/15/20 07/01/20 History dicyclomine 10 mg PO BID PRN 03/08/20 07/01/20 History cholestyramine (with sugar) 1 ea PO BID 03/28/20 07/01/20 History [Questran] apixaban [Eliquis] 2.5 mg PO BID 04/18/20 07/01/20 History ustekinumab [Stelara] 90 mg SUBCUT .Q8WK 04/18/20 07/01/20 History Iron Infusion 1 dose IV .EVERY OTHER WEEK 07/01/20 07/01/20 History insulin degludec [Tresiba 30 unit SUBCUT DAILY 07/01/20 07/01/20 History FlexTouch U-200] mesalamine 800 mg PO TID 07/01/20 07/01/20 History trazodone 50 - 100 mg PO HS PRN 07/01/20 07/01/20 History Past Med/Surg History Medical History (Updated 07/01/20 @ 05:44 by Delia Garcia DO) Acute hyponatremia Acute kidney injury Anemia Breast cancer, right 2012--SX & RADIATION, NO CHEMO C. 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) "Abnormal right breast mammogram Biopsy-positive for DCIS Status post lumpectomy with no residual tumor stage pTis NXMX Estrogen receptor positive, progesterone receptor positive Status post completion of radiation therapy 02/22/2013 received 3850 cGy utilizing accelerated partial breast treatment " Obesity (BMI 30-39.9) Surgical History H/O breast biopsy 2012--RIGHT MALIGNANT H/O lumpectomy History of appendectomy History of colonoscopy History of lumpectomy of right breast "+ HERBIE ER/IL + in 10/2012 s/p RT" History of tonsillectomy and adenoidectomy Hx of appendectomy S/P insertion of IVC (inferior vena caval) filter 03/29/[address] BUSTAMANTE Status post glaucoma surgery BILT Family History Mother Family history of diabetes mellitus Heart disease Father Family history of diabetes mellitus Heart disease Sister Family history of diabetes mellitus Grandmother Family history of diabetes mellitus PATERNAL Uterine cancer Sister Crohn's disease Social History Smoking Status: Never smoker Second Hand Exposure: No; Hx Alcohol Use: No Hx Substance Use: No Preferred Language: Georgian Communication Ability: Effective Visual Impairment: No Limitations Hearing Ability: Normal Menagerie Caretaker Required: No Beliefs That Will Affect Care: None marital status: Single Current Living Situation: Family Current Living Situation Comment: alone How many Children do You have: 0 Feels Safe at Home: Yes Assistive Devices: Glasses Review of Systems Review of Systems: As per HPI, all 10 systems reviewed, all other ROS negative Physical Exam Physical Exam: GENERAL: Comfortable, obese, no respiratory distress SKIN: Pallor , warm HEENT: Pale palpebral conjunctivae, no ptosis, dry buccal mucosa NECK : Supple, short neck, no tenderness CHEST : CTA, no tenderness HEART : RRR, no obvious murmurs ABDOMEN: Some distention, nonspecific tenderness on light palpation EXTREMITIES : No LE swelling/tenderness, no other conspicuous deformities noted NEUROLOGIC : Coherent, no facial asymmetry, no other gross focality Results & Data Results & Data ([facility]) Vital Signs (Past 12 Hours) Vital Signs Temp Pulse Pulse Resp BP BP Pulse Ox 07/01/20 05:05 62 18 112/73 100 07/01/20 03:04 36.8 C 67 17 109/81 99 Laboratory Results Laboratory Results WBC 10.38 K/uL (4.8-10.8) 07/01/20 02:38 RBC 3.54 M/uL (4.2-5.4) L 07/01/20 02:38 Hgb 8.4 g/dL (12.0-16.0) L 07/01/20 02:38 Hct 27.6 % (37-47) L 07/01/20 02:38 MCV 78.0 fL (80-100) L 07/01/20 02:38 MCH 23.7 pg (25-34) L 07/01/20 02:38 MCHC 30.4 g/dL (32-36) L 07/01/20 02:38 RDW Std Deviation 51.8 fL (36.4-46.3) H 07/01/20 02:38 RDW Coeff of Conchis 18.4 % (11.5-14.5) H 07/01/20 02:38 Plt Count 610 K/uL (130-400) H 07/01/20 02:38 MPV 9.2 fL (7.4-10.4) 07/01/20 02:38 Immature Gran % (Auto) 0.5 % 07/01/20 02:38 Neut % (Auto) 55.6 % 07/01/20 02:38 Lymph % (Auto) 24.6 % 07/01/20 02:38 Mellette % (Auto) 10.5 % 07/01/20 02:38 Eos % (Auto) 8.3 % 07/01/20 02:38 Baso % (Auto) 0.5 % 07/01/20 02:38 Neut # (Auto) 5.78 K/uL (1.4-6.5) 07/01/20 02:38 Lymph # (Auto) 2.55 K/uL (1.2-3.4) 07/01/20 02:38 Mellette # (Auto) 1.09 K/uL (0.11-0.59) H 07/01/20 02:38 Eos # (Auto) 0.86 K/uL (0-0.5) H 07/01/20 02:38 Baso # (Auto) 0.05 K/uL (0-0.2) 07/01/20 02:38 Immature Gran # (Auto) 0.05 K/uL (0.00-0.02) H 07/01/20 02:38 Polychromasia 1+ 07/01/20 02:38 Ovalocytes 1+ 07/01/20 02:38 PT 11.8 Seconds (9.0-12.0) 07/01/20 04:42 INR 1.1 (0.9-1.1) 07/01/20 04:42 APTT 30.3 Seconds (21.0-31.0) 07/01/20 04:42 PTT Ratio 1.1 07/01/20 04:42 Sodium 141 mmol/L (136-145) 07/01/20 02:38 Potassium 2.9 mmol/L (3.5-5.1) L 07/01/20 02:38 Chloride 110 mmol/L (98-107) H 07/01/20 02:38 Carbon Dioxide 22 mmol/L (21-32) 07/01/20 02:38 Anion Gap 9.0 (3-11) 07/01/20 02:38 BUN 15 mg/dl (7-18) 07/01/20 02:38 Creatinine 1.00 mg/dl (0.6-1.2) 07/01/20 02:38 Est Cr Clr Drug Dosing 49.5 ml/min 07/01/20 02:38 Est GFR ( Amer) 68.5 07/01/20 02:38 Est GFR (Non-Af Amer) 59.1 07/01/20 02:38 BUN/Creatinine Ratio 14.9 (10-20) 07/01/20 02:38 Glucose 62 mg/dl (70-99) L 07/01/20 02:38 POC Glucose 94 mg/dl (70-99) 07/01/20 05:57 Calcium 8.0 mg/dl (8.5-10.1) L 07/01/20 02:38 Total Bilirubin 0.2 mg/dl (0.2-1) 07/01/20 02:38 AST 14 U/L (15-37) L 07/01/20 02:38 ALT 8 U/L (12-78) L 07/01/20 02:38 Alkaline Phosphatase 158 U/L (45-117) H 07/01/20 02:38 Total Protein 5.3 gm/dl (6.4-8.2) L 07/01/20 02:38 Albumin 1.8 gm/dl (3.4-5.0) L 07/01/20 02:38 Globulin 3.5 gm/dl (2.5-4.0) 07/01/20 02:38 Albumin/Globulin Ratio 0.5 (0.9-2) L 07/01/20 02:38 Lipase 175 U/L (73-393) 07/01/20 02:38 Blood Type AB Negative 07/01/20 04:12 Antibody Screen NEGATIVE 07/01/20 04:[address] abdomen pelvis initial read: Diffuse active proctocolitis, most prominently involving transverse and left colon. No evidence of terminal ileitis. No cholelithiasis EKG as per my interpretation: Rate 60, NSR, normal axis, T wave abnormalities septal leads
[2020-07-01] MEDS ORDERED: POTASSIUM CHLORIDE CRTAB 20 MEQ TABCR PO STA (06:30)
[2020-07-01] MEDS ORDERED: POTASSIUM CHLORIDE 40 MEQ in SODIUM CHLORIDE 0.9% 1000ML 1,000 ML IV ONE (06:35)
[2020-07-01 06:50] LABS: Magnesium 1.7 mg/dl (1.8-2.4); Thyroid Stimulating Hormone 3.35 uIu/ml (0.300-4.500)
[2020-07-01] MEDS: POTASSIUM CHLORIDE / WTR 10 MEQ/100 ML PLCT IV SCH ×2 (06:52→07:40)
--- NOTE | 2020-07-01 07:01 | CT Scan Report ---
CT OF THE ABDOMEN AND PELVIS WITH CONTRAST CLINICAL HISTORY: Lower abdominal pain - h/o chrons COMPARISON STUDY: CT of the abdomen and pelvis April 08, 2020. TECHNIQUE: Following IV administration of 93 mL of Optiray-320, axial images of the abdomen and pelvi s were obtained from the lung bases to the proximal femurs. Images were reviewed in the axial, sagitt al, and coronal planes. IV contrast was administered without complication. Automated exposure contro l was utilized for the study. A dose lowering technique was utilized adhering to the principles of A AWAIS. CT DOSE: 525.06 mGy.cm FINDINGS: Right lower lobe airspace opacity is significantly decreased since CT of March 31, 2020 . This residual opacity favors scarring. No pneumatosis, free air or portal venous gas is present. Th ere is probable hepatic steatosis. A gallstone within the gallbladder is noted. There is no evidence for acute cholecystitis. The spleen, adrenal glands and pancreas are unremarkable. There is a 2 mm ri ght renal calculus. There are no ureteral calculi. There is no hydronephrosis. Note is again made of an indeterminate 1.2 cm lesion within the lower pole of the left kidney on axial image 161 of 456. Th is is unchanged since CT of April 08, 2020 but mildly increased in size since CT of January 25, 2018 . An additional 1.5 cm left renal cyst is noted. IVC filters in place. There is no evidence for a bow el obstruction. There is persistent moderate wall thickening with minimal pericolonic infiltration an d evidence for hyperemia involving the transverse colon, descending colon, sigmoid colon and rectum. This is similar to CT of March 31, 2020. The appendix is not visualized. There is no abscess. No suspicious osseous lesions are noted. There is moderate plaque of the abdominal aorta. IMPRESSION: 1. Moderate wall thickening with evidence for hyperemia of the transverse colon, descending colon, si gmoid colon and rectum which is similar to CT of April 08, 2020. This favors active inflammatory bowel disease. No abscess. No bowel obstruction. No small bowel wall thickening. 2. 1.2 cm lesion within the lower pole of the left kidney which is similar to CT of April 08 0 but mildly increased in size since CT of January 25, 2018. This lesion is indeterminate and may refle ct a small solid renal lesion. 3. Cholelithiasis. ACT 112: Negative or not required by law. Electronically signed by: Douglas Snyder M.D. 07/01/2020 6:59 AM
[2020-07-01] MEDS ORDERED: MAGNESIUM SULFATE / D5W 1 GM/100 ML BAG IV ONE ×2 (07:30→09:30)
[2020-07-01 07:53] LABS: Estimated Average Glucose 174 mg/dl; Hemoglobin A1C 7.7 % (4.5-5.6)
[2020-07-01 08:17] LABS: Hematocrit (blood only) 30.7 % (37-47)
[2020-07-01] MEDS ORDERED: traZODone HCL 50 MG TAB PO PRN (08:42)
[2020-07-01] MEDS ORDERED: MoRPHine SULFATE 4 MG/ML 1 ML CARP\\VIAL IV PRN (08:42)
[2020-07-01] MEDS ORDERED: DEXTROSE 50% 50 ML SYRINGE IV PRN (08:42)
[2020-07-01] MEDS ORDERED: ACETAMINOPHEN 325 MG TAB PO PRN (08:42)
[2020-07-01] MEDS ORDERED: GLUCAGON FOR INJ 1 MG VIAL SQ PRN (08:42)
[2020-07-01] MEDS ORDERED: GLUCOSE 10 TABS/TUBE PO PRN (08:42)
[2020-07-01] MEDS ORDERED: GLUCOSE 40% GEL 15 GM TUBE PO PRN (08:42)
[2020-07-01] MEDS ORDERED: MoRPHine SULFATE 4 MG/ML 1 ML CARP\\VIAL ONE (08:47)
[2020-07-01] MEDS ORDERED: INSULIN GLARGINE SOLOSTAR 100 UNITS/ML 3 ML PEN SC SCH ×2 (09:00→21:00)
[2020-07-01] MEDS: INSULIN ASPART 100 UNITS/ML 3 ML PEN SC SCH ×4 (10:18→21:13)
[2020-07-01] MEDS: MESALAMINE 800 MG TABCR PO SCH ×3 (10:28→22:25)
[2020-07-01] MEDS: CHOLECALCIFEROL 1,000 UNITS 25 MCG TAB PO SCH (10:28)
[2020-07-01] MEDS: LEVOTHYROXINE SODIUM 75 MCG TABLET PO SCH (10:28)
[2020-07-01] MEDS: CALCIUM 600MG + VIT D 400 IU TAB PO SCH (10:28)
[2020-07-01] MEDS: SERTRALINE HCL 50 MG TABLET PO SCH (10:28)
[2020-07-01] MEDS: PANTOprazole 40 MG TAB PO SCH (10:28)
[2020-07-01] MEDS: ADVANCED PROBIOTIC 1250 MG CAPSULE PO SCH ×2 (12:03→17:29)
[2020-07-01] MEDS: methylPREDNISolone 20 MG in SYRINGE 0 ML IV SCH ×2 (12:03→21:13)
--- NOTE | 2020-07-01 12:17 | Electrocardiogram Report ---
Test Reason : Blood Pressure : / mmHG Vent. Rate : 060 BPM Atrial Rate : 060 BPM P-R Int : 132 ms QRS Dur : 092 ms QT Int : 440 ms P-R-T Axes : -57 001 -04 degrees QTc Int : 440 ms Unusual P axis, possible ectopic atrial rhythm Cannot rule out Inferior infarct (cited on or before 08-APR-2020) Abnormal ECG When compared with ECG of 08-APR-2020 13:03, Ectopic atrial rhythm has replaced Sinus rhythm Vent. rate has decreased BY 35 BPM Confirmed by Kehinde Hicks ([id number]) on 07/01/2020 12:17:06 PM Referred By: REFERRED SELF Confirmed By:Kehinde Hicks
--- NOTE | 2020-07-01 13:07 | Gastrointestinal Consultation ---
Date of Consultation July 01, 2020 Assessment & Plan (1) Acute GI bleeding: This is a 64 y/o female with IBD on Stelara, complicated by DVT on Eliquis, presenting with recurrent hematochezia. Diff dx to consider would be IBD flare vs. C diff vs related to AC use (Eliquis). Currently pt tolerating clears, resting comfortably, VSS and HGB stable and not far from baseline. Abd is soft. - Await C. diff testing - If C. diff neg, would restart budesonide at 3 mg daily along with her Stelara - If C. diff + would then recommend this be treated as appropriate - Monitor and document GI output - Eliquis is on hold per primary team - Trend H&H, transfuse PRN - Would continue supportive care with IVF, analgesia PRN - Pt is on daily PPI and would recommend that as well - Appears she is set-up to see Dr. El of colorectal surgery as an outpt in the spring - Would recommend pt f/u with GI team as an outpt Thank you for the consult. I have discussed this with my attending, please see addendum for additional details/recommendations. (2) Crohn's colitis: Supervising Physician Co-Signing Physician Notes I saw and evaluated the patient. She presents with hematochezia thought to be related to ongoing anticoagulation with Xarelto which is being used for treatment of DVTs. The patient does have a history of Crohn's disease and is typically followed by Dr. Chow and Ms. Ng who had placed the patient onto Stelara last month. She had been on budesonide as well but this was discontinued approximately 3 to 4 weeks ago. Patient denies having fevers chills or weight loss. The patient's last colonoscopy was performed in January and notable for numerous ulcerative lesions throughout the colon consistent with Crohn's disease. Physical exam No obvious distress Abdominal tenderness today Impression: Patient with recurrent hematochezia likely related to ongoing anticoagulation. Would certainly recommend further evaluation for C. difficile and if negative would suggest that we restart the patient on budesonide 3 mg/day. Should the bleeding persist then a colonoscopy could certainly be reconsidered in the meantime, we would suggest discontinuation of anticoagulation History of Present Illness Reason for Consultation: LGIB Attending Physician: Julisa Montgomery, DO History of Present Illness This is a 64 y/o female with PMHx IBD on Stelara, T2DM, HTN, anemia on iron infusions, on chronic AC for DVT/PE, recurrent c. diff and others admitted for recurrent hematochezia. Pt notes for the last few days she's had recurrent abd cramping, bloody diarrhea (more than normal for her). Typically has occasional BRBPR and 3-4 mushy stools daily. Now has had farzana blood and diarrhea 8 x per day; felt presyncopal so she came to the ER. Pt was on Coumadin but this was recently switched to Eliquis in the last month. On arrival HGB 8.4 (today 9), Crit 30, BUN 15, INR 1. C. diff pending. CTAP with changes c/w IBD, no obstruction. VSS. Currently pt tolerating clears for breakfast; feels somewhat improved. Denies significant abd pain, n/v, hematemesis, melena, abd distention, CP; joint pain, bruising/bleeding on the skin, abscess/fistula, dysuria, hematuria, jaundice. She states appetite had been up until the last few days. Pt has had recurrent bouts of hematochezia, IBD flares. She is to see surgery to see if colectomy would be beneficial. 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 Was on Uceris recently but tapered off. Last colonoscopy: 02/02/20: Ulcerated areas in the rectum, sigmoid, and descending and transverse colon. Allergies Allergy/AdvReac Type Severity Reaction Status Date / Time aztreonam [From Azactam] Allergy Intermediate flushed Verified 07/01/20 04:20 /itching dorzolamide Allergy Mild EYE LID Verified 07/01/20 04:20 SWELLING latanoprost Allergy Mild EYE LID Verified 07/01/20 04:20 SWELLING Penicillins Allergy Mild Rash Verified 07/01/20 04:20 timolol Allergy Mild EYE LID Verified 07/01/20 04:20 SWELLING thimerosal Allergy Unknown Unknown Verified 07/01/20 04:20 empagliflozin AdvReac Severe Confusion Verified 07/01/20 04:20 [From Jardiance] Home Medications Medication Instructions Recorded Confirmed Type calcium citrate-vitamin D3 1 tab PO QAM 05/12/18 07/01/20 History [Citracal-D3 Petites] cholecalciferol (vitamin D3) 1,000 unit PO QAM 05/12/18 07/01/20 History [Vitamin D3] levothyroxine 75 mcg PO DAILYBB 05/12/18 07/01/20 History Probiotic Acidophilus Biobeads 1 tab PO TIDM 03/22/19 07/01/20 History furosemide [Lasix] 20 mg PO QAM 03/22/19 07/01/20 History sertraline [Zoloft] 50 mg PO QAM 03/22/19 07/01/20 History atorvastatin 40 mg PO HS 07/21/19 07/01/20 History potassium chloride [Klor-Con M20] 20 meq PO BID 07/21/19 07/01/20 History pantoprazole 40 mg PO QAM 02/15/20 07/01/20 History dicyclomine 10 mg PO BID PRN 03/08/20 07/01/20 History cholestyramine (with sugar) 1 ea PO BID 03/28/20 07/01/20 History [Questran] apixaban [Eliquis] 2.5 mg PO BID 04/18/20 07/01/20 History ustekinumab [Stelara] 90 mg SUBCUT .Q8WK 04/18/20 07/01/20 History Iron Infusion 1 dose IV .EVERY OTHER WEEK 07/01/20 07/01/20 History insulin degludec [Tresiba 30 unit SUBCUT DAILY 07/01/20 07/01/20 History FlexTouch U-200] mesalamine 800 mg PO TID 07/01/20 07/01/20 History trazodone 50 - 100 mg PO HS PRN 07/01/20 07/01/20 History Patient History Medical History (Updated 07/01/20 @ 13:00 by Nasima Camarena PA-C) Acute hyponatremia Acute kidney injury Anemia Breast cancer, right 2012--SX & RADIATION, NO CHEMO C. 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) "Abnormal right breast mammogram Biopsy-positive for DCIS Status post lumpectomy with no residual tumor stage pTis NXMX Estrogen receptor positive, progesterone receptor positive Status post completion of radiation therapy 02/22/2013 received 3850 cGy utilizing accelerated partial breast treatment " Obesity (BMI 30-39.9) Surgical History H/O breast biopsy 2012--RIGHT MALIGNANT H/O lumpectomy History of appendectomy History of colonoscopy History of lumpectomy of right breast "+ HERBIE ER/MT + in 10/2012 s/p RT" History of tonsillectomy and adenoidectomy Hx of appendectomy S/P insertion of IVC (inferior vena caval) filter 03/29/[address] BUSTAMANTE Status post glaucoma surgery BILT Family History Mother Family history of diabetes mellitus Heart disease Father Family history of diabetes mellitus Heart disease Sister Family history of diabetes mellitus Grandmother Family history of diabetes mellitus PATERNAL Uterine cancer Sister Crohn's disease Social History Smoking Status: Never smoker Second Hand Exposure: No; Do You Dip or Chew Tobacco: No; Tobacco Cessation Education Requested by Patient: No Hx Alcohol Use: No Hx Substance Use: No Preferred Language: Chinese Communication Ability: Effective Visual Impairment: No Limitations Hearing Ability: Normal International Accountant Required: No Beliefs That Will Affect Care: None marital status: Single Current Living Situation: Alone Current Living Situation Comment: alone How many Children do You have: 0 Other Information That Helps Us Care for You: No Feels Safe at Home: Yes Safety Concerns: Feels Safe At This Time Assistive Devices: Glasses Assistive Devices Comment: glasses are at home Review of Systems Review of Systems: All systems reviewed & are unremarkable except as noted in HPI & below Physical Exam Constitutional: WD/WN, vitals as above no acute distress Eyes: PERRL, conjunctivae normal, anicteric sclerae Respiratory: normal respiratory effort, lungs clear to auscultation Cardiovascular: RRR, no murmur, no edema Gastrointestinal (Abdomen): Inspection/Auscultation: abdomen normal to inspection and normal bowel sounds; abdomen not distended Percussion/Palpation: abdomen soft mild TTP bilateral lower quadrants; no rebound/guarding Skin: no rashes, warm and dry Psychiatric: A+Ox3, euthymic affect Results & Data ([facility]) Vital Signs (Past 12 Hours) Vital Signs Temp Pulse Pulse Resp BP BP BP 07/01/20 11:43 36.7 C 98 H 18 122/72 07/01/20 08:30 36.5 C 73 20 123/74 07/01/20 08:24 72 07/01/20 07:50 79 16 154/96 H 07/01/20 07:31 70 25 H 07/01/20 07:30 67 24 148/70 H 07/01/20 07:20 97 H 14 07/01/20 07:10 97 H 30 H 07/01/20 07:01 93 H 21 07/01/20 07:00 73 26 H 125/53 L 07/01/20 06:50 67 21 07/01/20 06:40 65 24 07/01/20 06:30 62 23 126/82 07/01/20 06:20 67 17 07/01/20 06:10 60 25 H 07/01/20 06:01 63 19 07/01/20 06:00 65 22 116/79 07/01/20 05:50 71 22 07/01/20 05:40 65 20 07/01/20 05:31 69 23 07/01/20 05:30 66 22 105/46 L 07/01/20 05:20 64 23 07/01/20 05:10 76 24 07/01/20 05:05 84 62 18 112/73 112/73 07/01/20 05:04 65 21 07/01/20 04:40 62 15 07/01/20 04:30 61 21 07/01/20 04:20 60 17 07/01/20 04:10 60 12 07/01/20 04:01 62 19 07/01/20 04:00 61 18 104/57 L 07/01/20 03:50 70 24 07/01/20 03:45 63 24 07/01/20 03:36 63 24 107/62 07/01/20 03:04 36.8 C 67 17 109/81 Pulse Ox 07/01/20 11:43 95 07/01/20 08:30 93 07/01/20 08:24 07/01/20 07:50 100 07/01/20 07:31 99 07/01/20 07:30 98 07/01/20 07:20 92 07/01/20 07:10 89 L 07/01/20 07:01 99 07/01/20 07:00 100 07/01/20 06:50 100 07/01/20 06:40 99 07/01/20 06:30 100 07/01/20 06:20 100 07/01/20 06:10 99 07/01/20 06:01 100 07/01/20 06:00 100 07/01/20 05:50 97 07/01/20 05:40 98 07/01/20 05:31 96 07/01/20 05:30 98 07/01/20 05:20 99 07/01/20 05:10 94 07/01/20 05:05 100 07/01/20 05:04 100 07/01/20 04:40 100 07/01/20 04:30 100 07/01/20 04:20 100 07/01/20 04:10 98 07/01/20 04:01 100 07/01/20 04:00 100 07/01/20 03:50 95 07/01/20 03:45 100 07/01/20 03:36 99 07/01/20 03:04 99 Laboratory Results 07/01/20 07/01/20 07/01/20 Range/Units 12:00 12:00 07:54 WBC (4.8-10.8) K/uL RBC (4.2-5.4) M/uL Hgb 9.0 L (12.0-16.0) g/dL Hct 30.7 L (37-47) % MCV (80-100) fL MCH (25-34) pg MCHC (32-36) g/dL RDW Std Deviation (36.4-46.3) fL RDW Coeff of Conchis (11.5-14.5) % Plt Count (130-400) K/uL MPV (7.4-10.4) fL Immature Gran % (Auto) % Neut % (Auto) % Lymph % (Auto) % Turner % (Auto) % Eos % (Auto) % Baso % (Auto) % Neut # (Auto) (1.4-6.5) K/uL Lymph # (Auto) (1.2-3.4) K/uL Turner # (Auto) (0.11-0.59) K/uL Eos # (Auto) (0-0.5) K/uL Baso # (Auto) (0-0.2) K/uL Immature Gran # (Auto) (0.00-0.02) K/uL Polychromasia Ovalocytes PT INR APTT PTT Ratio Sodium (136-145) mmol/L Potassium (3.5-5.1) mmol/L Chloride (98-107) mmol/L Carbon Dioxide (21-32) mmol/L Anion Gap (3-11) BUN (7-18) mg/dl Creatinine (0.6-1.2) mg/dl Est Cr Clr Drug Dosing ml/min Est GFR ( Amer) Est GFR (Non-Af Amer) BUN/Creatinine Ratio (10-20) Glucose (70-99) mg/dl POC Glucose 294 H 315 H* (70-99) mg/dl Estimat Average Glucose mg/dl Hemoglobin A1c (4.5-5.6) % Calcium (8.5-10.1) mg/dl Magnesium (1.8-2.4) mg/dl Total Bilirubin (0.2-1) mg/dl AST (15-37) U/L ALT (12-78) U/L Alkaline Phosphatase (45-117) U/L Total Protein (6.4-8.2) gm/dl Albumin (3.4-5.0) gm/dl Globulin (2.5-4.0) gm/dl Albumin/Globulin Ratio (0.9-2) Lipase (73-393) U/L TSH (0.300-4.500) uIu/ml SARS-CoV-2 Ag (Rapid) (Negative) Blood Type Antibody Screen 07/01/20 07/01/20 07/01/20 Range/Units 06:19 05:57 04:42 WBC (4.8-10.8) K/uL RBC (4.2-5.4) M/uL Hgb (12.0-16.0) g/dL Hct (37-47) % MCV (80-100) fL MCH (25-34) pg MCHC (32-36) g/dL RDW Std Deviation (36.4-46.3) fL RDW Coeff of Conchis (11.5-14.5) % Plt Count (130-400) K/uL MPV (7.4-10.4) fL Immature Gran % (Auto) % Neut % (Auto) % Lymph % (Auto) % Turner % (Auto) % Eos % (Auto) % Baso % (Auto) % Neut # (Auto) (1.4-6.5) K/uL Lymph # (Auto) (1.2-3.4) K/uL Turner # (Auto) (0.11-0.59) K/uL Eos # (Auto) (0-0.5) K/uL Baso # (Auto) (0-0.2) K/uL Immature Gran # (Auto) (0.00-0.02) K/uL Polychromasia Ovalocytes PT 11.8 INR 1.1 APTT 30.3 PTT Ratio 1.1 Sodium (136-145) mmol/L Potassium (3.5-5.1) mmol/L Chloride (98-107) mmol/L Carbon Dioxide (21-32) mmol/L Anion Gap (3-11) BUN (7-18) mg/dl Creatinine (0.6-1.2) mg/dl Est Cr Clr Drug Dosing ml/min Est GFR ( Amer) Est GFR (Non-Af Amer) BUN/Creatinine Ratio (10-20) Glucose (70-99) mg/dl POC Glucose 94 (70-99) mg/dl Estimat Average Glucose mg/dl Hemoglobin A1c (4.5-5.6) % Calcium (8.5-10.1) mg/dl Magnesium (1.8-2.4) mg/dl Total Bilirubin (0.2-1) mg/dl AST (15-37) U/L ALT (12-78) U/L Alkaline Phosphatase (45-117) U/L Total Protein (6.4-8.2) gm/dl Albumin (3.4-5.0) gm/dl Globulin (2.5-4.0) gm/dl Albumin/Globulin Ratio (0.9-2) Lipase (73-393) U/L TSH (0.300-4.500) uIu/ml SARS-CoV-2 Ag (Rapid) Negative (Negative) Blood Type Antibody Screen 07/01/20 07/01/20 07/01/20 Range/Units 04:12 04:12 04:12 WBC (4.8-10.8) K/uL RBC (4.2-5.4) M/uL Hgb (12.0-16.0) g/dL Hct (37-47) % MCV (80-100) fL MCH (25-34) pg MCHC (32-36) g/dL RDW Std Deviation (36.4-46.3) fL RDW Coeff of Conchis (11.5-14.5) % Plt Count (130-400) K/uL MPV (7.4-10.4) fL Immature Gran % (Auto) % Neut % (Auto) % Lymph % (Auto) % Turner % (Auto) % Eos % (Auto) % Baso % (Auto) % Neut # (Auto) (1.4-6.5) K/uL Lymph # (Auto) (1.2-3.4) K/uL Turner # (Auto) (0.11-0.59) K/uL Eos # (Auto) (0-0.5) K/uL Baso # (Auto) (0-0.2) K/uL Immature Gran # (Auto) (0.00-0.02) K/uL Polychromasia Ovalocytes PT INR APTT PTT Ratio Sodium (136-145) mmol/L Potassium (3.5-5.1) mmol/L Chloride (98-107) mmol/L Carbon Dioxide (21-32) mmol/L Anion Gap (3-11) BUN (7-18) mg/dl Creatinine (0.6-1.2) mg/dl Est Cr Clr Drug Dosing ml/min Est GFR ( Amer) Est GFR (Non-Af Amer) BUN/Creatinine Ratio (10-20) Glucose (70-99) mg/dl POC Glucose (70-99) mg/dl Estimat Average Glucose 174 mg/dl Hemoglobin A1c 7.7 H (4.5-5.6) % Calcium (8.5-10.1) mg/dl Magnesium 1.7 L (1.8-2.4) mg/dl Total Bilirubin (0.2-1) mg/dl AST (15-37) U/L ALT (12-78) U/L Alkaline Phosphatase (45-117) U/L Total Protein (6.4-8.2) gm/dl Albumin (3.4-5.0) gm/dl Globulin (2.5-4.0) gm/dl Albumin/Globulin Ratio (0.9-2) Lipase (73-393) U/L TSH 3.350 (0.300-4.500) uIu/ml SARS-CoV-2 Ag (Rapid) (Negative) Blood Type AB Negative Antibody Screen NEGATIVE 07/01/20 07/01/20 07/01/20 Range/Units 03:38 02:38 02:38 WBC 10.38 (4.8-10.8) K/uL RBC 3.54 L (4.2-5.4) M/uL Hgb 8.4 L (12.0-16.0) g/dL Hct 27.6 L (37-47) % MCV 78.0 L (80-100) fL MCH 23.7 L (25-34) pg MCHC 30.4 L (32-36) g/dL RDW Std Deviation 51.8 H (36.4-46.3) fL RDW Coeff of Conchis 18.4 H (11.5-14.5) % Plt Count 610 H (130-400) K/uL MPV 9.2 (7.4-10.4) fL Immature Gran % (Auto) 0.5 % Neut % (Auto) 55.6 % Lymph % (Auto) 24.6 % Turner % (Auto) 10.5 % Eos % (Auto) 8.3 % Baso % (Auto) 0.5 % Neut # (Auto) 5.78 (1.4-6.5) K/uL Lymph # (Auto) 2.55 (1.2-3.4) K/uL Turner # (Auto) 1.09 H (0.11-0.59) K/uL Eos # (Auto) 0.86 H (0-0.5) K/uL Baso # (Auto) 0.05 (0-0.2) K/uL Immature Gran # (Auto) 0.05 H (0.00-0.02) K/uL Polychromasia 1+ Ovalocytes 1+ PT Cancelled INR Cancelled APTT Cancelled PTT Ratio Cancelled Sodium 141 (136-145) mmol/L Potassium 2.9 L (3.5-5.1) mmol/L Chloride 110 H (98-107) mmol/L Carbon Dioxide 22 (21-32) mmol/L Anion Gap 9.0 (3-11) BUN 15 (7-18) mg/dl Creatinine 1.00 (0.6-1.2) mg/dl Est Cr Clr Drug Dosing 49.5 ml/min Est GFR ( Amer) 68.5 Est GFR (Non-Af Amer) 59.1 BUN/Creatinine Ratio 14.9 (10-20) Glucose 62 L (70-99) mg/dl POC Glucose (70-99) mg/dl Estimat Average Glucose mg/dl Hemoglobin A1c (4.5-5.6) % Calcium 8.0 L (8.5-10.1) mg/dl Magnesium (1.8-2.4) mg/dl Total Bilirubin 0.2 (0.2-1) mg/dl AST 14 L (15-37) U/L ALT 8 L (12-78) U/L Alkaline Phosphatase 158 H (45-117) U/L Total Protein 5.3 L (6.4-8.2) gm/dl Albumin 1.8 L (3.4-5.0) gm/dl Globulin 3.5 (2.5-4.0) gm/dl Albumin/Globulin Ratio 0.5 L (0.9-2) Lipase 175 (73-393) U/L TSH (0.300-4.500) uIu/ml SARS-CoV-2 Ag (Rapid) (Negative) Blood Type Antibody Screen Diagnostic Findings CTAP 1. Moderate wall thickening with evidence for hyperemia of the transverse colon, descending colon, sigmoid colon and rectum which is similar to CT of April 08, 2020. This favors active inflammatory bowel disease. No abscess. No bowel obstruction. No small bowel wall thickening. 2. 1.2 cm lesion within the lower pole of the left kidney which is similar to CT of April 08, 2020 but mildly increased in size since CT of January 25, 2018. This lesion is indeterminate and may reflect a small solid renal lesion. 3. Cholelithiasis. (1) Crohn's colitis Digestive disease complication type: with rectal bleeding Qualified Code(s): K50.111 - Crohn's disease of large intestine with rectal bleeding
[2020-07-01 14:17] LABS: Hemoglobin 8.8 g/dL (12.0-16.0)
--- NOTE | 2020-07-01 16:05 | Hospitalist Progress Note ---
Date of Service July 01, 2020 Assessment & Plan (1) Crohn's colitis: Recurrent IBD flare up vs c diff infection. Pt feels improved and H/H remains stable. Pending c-diff testing. Continue steroids-patient is clinically improved. IVF increased in setting of tachycardia and clinical deh ydration. Treatment plan per GI team. (2) Acute GI bleeding: supportive care PRN, tachycardic today so increased IVF to 150cc/hr x 2 bags. (3) Acute on chronic blood loss anemia: transfuse as needed, currently holding stable. (4) 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: on Eliquis s/p IVC filter. Eliquis on hold currently. (5) DMII (diabetes mellitus, type 2): Uncontrolled at baseline. Also uncontrolled inpatient secondary to increased steroid administration. Increased insulin coverage and switched Lantus to 15 Units BID. Will check and cover overnight, also. (6) DVT prophylaxis: SCds Full Code Dispo-cont hospitalization pending improvement in pain and hematochezia. To home when medically stable. Julisa Montgomery DO [facility] Hospitalist Admission and Anticipated Discharge Date Admission Date: July 01, 2020 Subjective 64-year-old female with IBD on Stelara, complicated by DVT on Eliquis presented with recurrent hematochezia and abdominal pain. Overall reports feeling clinically better since last night Some abdominal pain that is diffuse is present H&H has stayed stable today Denies shortness of breath or chest pain Generally feels weak for the last few weeks consistent with symptomatic anemia Reports following with Dr. Reza for anemia as outpatient and considering intravenous infusion of iron. Review of Systems Review of Systems: All systems reviewed & are unremarkable except as noted in Subjective Physical Exam Physical Exam: CONSTITUTIONAL: WNWD, vitals as above, generally well- appearing EYES: normal conjunctivae, no scleral icterus ENT: external ear and nose normal, oropharynx clear, MMM RESPIRATORY: clear to auscultation bilaterally, no crackles, rales or wheezes, normal respiratory effort CARDIOVASCULAR: regular rate and rhythm, S1 and 2 heard without murmurs, gallops or rubs, no JVD, no peripheral edema GASTROINTESTINAL: soft, nontender, nondistended, no guarding MUSCULOSKELETAL: strength 5/5 throughout, head is normocephalic and atraumatic, neck supple, normal palpation of chest wall without tenderness SKIN: warm and dry NEUROLOGIC: No facial palsy, no dysarthria. CN 2-12 grossly intact, no sensory deficit, normal cognition, normal speech, no gross focal deficits. PSYCHIATRIC: alert cooperative and oriented to person, place and time. Results & Data Results & Data ([facility]) Vital Signs (Past 12 Hours) Vital Signs Temp Pulse Pulse Resp BP BP BP 07/01/20 15:27 37 C 104 H 18 132/68 07/01/20 15:00 101 H 07/01/20 11:43 36.7 C 98 H 18 122/72 07/01/20 08:30 36.5 C 73 20 123/74 07/01/20 08:24 72 07/01/20 07:50 79 16 154/96 H 07/01/20 07:31 70 25 H 07/01/20 07:30 67 24 148/70 H 07/01/20 07:20 97 H 14 07/01/20 07:10 97 H 30 H 07/01/20 07:01 93 H 21 07/01/20 07:00 73 26 H 125/53 L 07/01/20 06:50 67 21 07/01/20 06:40 65 24 07/01/20 06:30 62 23 126/82 07/01/20 06:20 67 17 07/01/20 06:10 60 25 H 07/01/20 06:01 63 19 07/01/20 06:00 65 22 116/79 07/01/20 05:50 71 22 07/01/20 05:40 65 20 07/01/20 05:31 69 23 07/01/20 05:30 66 22 105/46 L 07/01/20 05:20 64 23 07/01/20 05:10 76 24 07/01/20 05:05 84 62 18 112/73 112/73 07/01/20 05:04 65 21 07/01/20 04:40 62 15 07/01/20 04:30 61 21 07/01/20 04:20 60 17 07/01/20 04:10 60 12 Pulse Ox 07/01/20 15:27 96 07/01/20 15:00 07/01/20 11:43 95 07/01/20 08:30 93 07/01/20 08:24 07/01/20 07:50 100 12/21/20 07:31 99 07/01/20 07:30 98 07/01/20 07:20 92 07/01/20 07:10 89 L 07/01/20 07:01 99 07/01/20 07:00 100 07/01/20 06:50 100 07/01/20 06:40 99 07/01/20 06:30 100 07/01/20 06:20 100 07/01/20 06:10 99 07/01/20 06:01 100 07/01/20 06:00 100 07/01/20 05:50 97 07/01/20 05:40 98 07/01/20 05:31 96 07/01/20 05:30 98 07/01/20 05:20 99 07/01/20 05:10 94 07/01/20 05:05 100 07/01/20 05:04 100 07/01/20 04:40 100 07/01/20 04:30 100 07/01/20 04:20 100 07/01/20 04:10 98 Laboratory Results Short CBC 07/01/20 07/01/20 07/01/20 Range/Units 02:38 07:54 14:00 WBC 10.38 (4.8-10.8) K/uL Hgb 8.4 L 9.0 L 8.8 L (12.0-16.0) g/dL Hct 27.6 L 30.7 L 29.0 L (37-47) % Plt Count 610 H (130-400) K/uL BMP 07/01/20 02:38 Sodium 141 Potassium 2.9 L Chloride 110 H Carbon Dioxide 22 BUN 15 Creatinine 1.00 Glucose 62 L Calcium 8.0 L Liver Function 07/01/20 Range/Units 02:38 Total Bilirubin 0.2 (0.2-1) mg/dl AST 14 L (15-37) U/L ALT 8 L (12-78) U/L Alkaline Phosphatase 158 H (45-117) U/L Albumin 1.8 L (3.4-5.0) gm/dl Medications Administered Current Inpatient Medications Acetaminophen (Acetaminophen 500 Mg Tab) 1,000 mg PO Q8H PRN PRN Reason: fever, pain Stop: 07/31/20 08:53 Atorvastatin Calcium (Atorvastatin 40 Mg Tab) 40 mg PO HS RACHEL Stop: 07/31/20 20:59 Cholestyramine Resin (Cholestyramine Light 4 Gm Pkt) 4 gm PO BID@1000,2200 RACHEL Stop: 07/31/20 21:59 Dextrose (Dextrose 50% 50 Ml Syringe) 25 - 50 ml IV UD PRN; Protocol PRN Reason: Hypoglycemia Protocol Stop: 07/31/20 08:41 Glucagon (Glucagon For Inj 1 Mg Vial) 1 mg SQ UD PRN; Protocol PRN Reason: Hypoglycemia Protocol Stop: 07/31/20 08:41 Glucose (Glucose 10 Tabs/Tube) 4 - 8 tabs PO UD PRN; Protocol PRN Reason: Hypoglycemia Protocol Stop: 07/31/20 08:41 Glucose (Glucose 40% Gel 15 Gm Tube) 15 - 30 gm PO UD PRN; Protocol PRN Reason: Hypoglycemia Protocol Stop: 07/31/20 08:41 Potassium Chloride 40 meq/ (Sodium Chloride) 1,020 mls @ 50 mls/hr IV .[id number] Stop: 07/02/20 02:58 Last Admin: 07/01/20 08:52 Dose: 50 mls/hr Documented by: Promethazine HCl 12.5 mg/ (Sodium Chloride) 50.5 mls @ 202 mls/hr IV Q6H PRN PRN Reason: Nausea And Vomiting Stop: 07/31/20 08:41 Methylprednisolone 20 mg/ (Syringe) 0.32 mls @ 1.5 mls/min IV Q8H RACHEL Stop: 07/31/20 11:59 Last Admin: 07/01/20 12:03 Dose: 1.5 mls/min Documented by: Insulin Aspart (Insulin Aspart 100 Units/Ml 3 Ml Pen) 0 units SC ACHS RACHEL Stop: 07/31/20 08:59 Last Admin: 07/01/20 12:13 Dose: 8 units Documented by: Insulin Glargine (Insulin Glargine Solostar 100 Units/Ml 3 Ml Pen) 5 units SC DAILY RACHEL Stop: 07/31/20 08:59 Last Admin: 07/01/20 10:29 Dose: 5 units Documented by: Lactobacillus Acidoph/Casei/Rhamnos (Advanced Probiotic 1250 Mg Capsule) 2 cap PO TIDM RACHEL Stop: 07/31/20 11:59 Last Admin: 07/01/20 12:03 Dose: 2 cap Documented by: Levothyroxine Sodium (Levothyroxine Sodium 75 Mcg Tablet) 75 mcg PO DAILYBB [facility] Stop: 07/31/20 08:59 Last Admin: 07/01/20 10:28 Dose: 75 mcg Documented by: Mesalamine (Mesalamine 800 Mg Tabcr) 800 mg PO TID [facility] Stop: 07/31/20 08:59 Last Admin: 07/01/20 14:10 Dose: 800 mg Documented by: Miscellaneous (Carbohydrates For Hypoglycemia ) 15 - 30 gm PO UD PRN PRN Reason: Hypoglycemia Protocol Stop: 07/31/20 08:41 Morphine Sulfate (Morphine Sulfate 4 Mg/Ml 1 Ml Carp\Vial) 4 mg IV Q4H PRN PRN Reason: Pain Stop: 07/15/20 08:41 Multivitamins/Minerals (Calcium 600mg + Vit D 400 Iu Tab) 1 tab PO [facility] Stop: 07/31/20 08:59 Last Admin: 07/01/20 10:28 Dose: 1 tab Documented by: Pantoprazole Sodium (Pantoprazole 40 Mg Tab) 40 mg PO [facility] Stop: 07/31/20 08:59 Last Admin: 07/01/20 10:28 Dose: 40 mg Documented by: Sertraline HCl (Sertraline Hcl 50 Mg Tablet) [facility] Stop: 07/31/20 08:59 Last Admin: 07/01/20 10:28 Dose: 50 mg Documented by: Tramadol HCl (Tramadol Hcl 50 Mg Tablet) 25 - 50 mg PO Q4H PRN PRN Reason: Pain Stop: 07/31/20 08:41 Trazodone HCl (Trazodone Hcl 50 Mg Tab) 50 mg PO HS PRN PRN Reason: Sleep Stop: 07/31/20 08:41 Vitamin D (Cholecalciferol 1,000 Units 25 Mcg Tab) 1,000 [facility] Stop: 07/31/20 08:59 Last Admin: 07/01/20 10:28 Dose: 1,000 units Documented by: (1) Crohn's colitis Digestive disease complication type: with rectal bleeding Qualified Code(s): K50.111 - Crohn's disease of large intestine with rectal bleeding
[2020-07-01] MEDS: SODIUM CHLORIDE 0.9% 1000ML 1,000 ML IV SCH (17:34)
[2020-07-01] MEDS ORDERED: INSULIN GLARGINE SOLOSTAR 100 UNITS/ML 3 ML PEN SC STA (21:08)
[2020-07-01] MEDS: CHOLESTYRAMINE LIGHT 4 GM PKT PO SCH (21:12)
[2020-07-01] MEDS: ATORVASTATIN 40 MG TAB PO SCH (22:25)
[2020-07-01] MEDS: PROMETHAZINE HCL 12.5 MG in SODIUM CHLORIDE 0.9% 50 ML IV PRN (22:44)
[2020-07-02] MEDS: SODIUM CHLORIDE 0.9% 1000ML 1,000 ML IV SCH ×3 (00:34→20:57)
[2020-07-02] MEDS: methylPREDNISolone 20 MG in SYRINGE 0 ML IV SCH ×2 (03:57→13:06)
[2020-07-02] MEDS: LEVOTHYROXINE SODIUM 75 MCG TABLET PO SCH (05:56)
[2020-07-02 06:50] LABS: Hemoglobin 8.1 g/dL (12.0-16.0); Mean Corpuscular Volume 79.9 fL (80-100); Mean Platelet Volume 9.1 fL (7.4-10.4); Platelet Count 525 K/uL (130-400); Red Blood Count 3.38 M/uL (4.2-5.4); White Blood Count 7.69 K/uL (4.8-10.8)
[2020-07-02 07:38] LABS: BUN Creatinine Ratio 14.5 (10-20); Calcium 8.1 mg/dl (8.5-10.1); Creatinine Clr Calc Pharmacy 57.8 ml/min; Est GFR (African American) 82.2; Est GFR (Non-African American) 70.9; Magnesium 2.4 mg/dl (1.8-2.4); Potassium 4.2 mmol/L (3.5-5.1)
[2020-07-02] MEDS: ADVANCED PROBIOTIC 1250 MG CAPSULE PO SCH ×3 (08:23→18:39)
[2020-07-02] MEDS: CALCIUM 600MG + VIT D 400 IU TAB PO SCH (08:23)
[2020-07-02] MEDS: MESALAMINE 800 MG TABCR PO SCH ×3 (08:24→20:58)
[2020-07-02] MEDS: INSULIN ASPART 100 UNITS/ML 3 ML PEN SC SCH ×4 (08:25→20:58)
[2020-07-02] MEDS: INSULIN GLARGINE SOLOSTAR 100 UNITS/ML 3 ML PEN SC SCH ×2 (08:26→20:58)
[2020-07-02] MEDS: SERTRALINE HCL 50 MG TABLET PO SCH (08:27)
[2020-07-02] MEDS: PANTOprazole 40 MG TAB PO SCH (08:27)
[2020-07-02] MEDS: CHOLECALCIFEROL 1,000 UNITS 25 MCG TAB PO SCH (08:27)
--- NOTE | 2020-07-02 08:33 | Hospitalist Progress Note ---
Date of Service July 02, 2020 Assessment & Plan (1) Crohn's colitis: Recurrent IBD flare up. C-diff ruled out on sample. She is positive for the gene, however, and in the setting of diarrhea should remain on isolation for the time being. Pt feels improved and H/H remains stable. IV methylprednisolone was switched to budesonide 3mg daily per GI recommendations. Will give her an additional 2 bags of IVF with ongoing loose stool and flushing/clinical dehydration. Cont home mesalamine, Questran and stelara (next injection due in Aug) (2) Acute GI bleeding: supportive care. Cont steroids and IVF. Heart rate has improved with iVF. (3) Acute on chronic blood loss anemia: transfuse as needed, currently holding stable. (4) 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: on Eliquis s/p IVC filter. Eliquis on hold currently. Patient requires lifelong anticoagulation. This will need to be decided with GI when she can safely go back on anticoagulation. (5) DMII (diabetes mellitus, type 2): Uncontrolled at baseline. Also uncontrolled inpatient secondary to increased steroid administration. Improved with more aggressive insulin coverage. Cont basal/bolus insulin and close monitoring. (6) DVT prophylaxis: SCDs (chemoprophy contraindicated in setting of hematochezia) Full Code Dispo-cont hospitalization pending improvement in pain and hematochezia. To home when medically stable and cleared by GI team. Julisa Montgomery DO [facility] Hospitalist Admission and Anticipated Discharge Date Admission Date: July 01, 2020 Subjective cc: 64 yo F with chronic flare reports persistent bloody diarrhea overnight feels more flushed today; thinks this is a result of the steroids from prior use abdominal pain is improved diet was advanced at her request afebrile no nausea denies SOB denies leg pain Review of Systems Review of Systems: All systems reviewed & are unremarkable except as noted in Subjective Physical Exam Physical Exam: CONSTITUTIONAL: WNWD, vitals as above, generally well- appearing EYES: normal conjunctivae, no scleral icterus ENT: external ear and nose normal, oropharynx clear, MMM RESPIRATORY: clear to auscultation bilaterally, no crackles, rales or wheezes, normal respiratory effort CARDIOVASCULAR: regular rate and rhythm, S1 and 2 heard without murmurs, gallops or rubs, no JVD, no peripheral edema GASTROINTESTINAL: soft, slight tenderness in the LUQ and bilateral lower quadrants-improved. nondistended, no guarding MUSCULOSKELETAL: strength 5/5 throughout, head is normocephalic and atraumatic, neck supple, normal palpation of chest wall without tenderness SKIN: warm and dry NEUROLOGIC: No facial palsy, no dysarthria. CN 2-12 grossly intact, no sensory deficit, normal cognition, normal speech, no gross focal deficits. PSYCHIATRIC: alert cooperative and oriented to person, place and time. Results & Data Results & Data ([facility]) Vital Signs (Past 12 Hours) Vital Signs Temp Pulse Pulse Resp BP BP Pulse Ox 07/02/20 06:34 36.6 C 77 18 120/66 97 07/02/20 05:08 36.5 C 73 16 126/70 96 07/02/20 00:29 88 07/01/20 23:16 36.6 C 98 H 16 124/74 99 07/01/20 20:42 36.9 C 93 H 18 132/80 95 Laboratory Results Short CBC 07/01/20 07/02/20 Range/Units 14:00 06:10 WBC 7.69 (4.8-10.8) K/uL Hgb 8.8 L 8.1 L (12.0-16.0) g/dL Hct 29.0 L 27.0 L (37-47) % Plt Count 525 H (130-400) K/uL [facility] 07/02/20 06:10 Sodium 140 Potassium 4.2 D Chloride 113 H Carbon Dioxide 20 L BUN 12 Creatinine 0.86 Glucose 176 H Calcium 8.1 L Medications Administered Current Inpatient Medications Acetaminophen (Acetaminophen 500 Mg Tab) 1,000 mg PO Q8H PRN PRN Reason: fever, pain Stop: 07/31/20 08:53 Atorvastatin Calcium (Atorvastatin 40 Mg Tab) 40 mg PO HS RACHEL Stop: 07/31/20 20:59 Last Admin: 07/01/20 22:25 Dose: 40 mg Documented by: Cholestyramine Resin (Cholestyramine Light 4 Gm Pkt) 4 gm PO BID@1000,2200 RACHEL Stop: 07/31/20 21:59 Last Admin: 07/01/20 21:12 Dose: 4 gm Documented by: Dextrose (Dextrose 50% 50 Ml Syringe) 25 - 50 ml IV UD PRN; Protocol PRN Reason: Hypoglycemia Protocol Stop: 07/31/20 08:41 Glucagon (Glucagon For Inj 1 Mg Vial) 1 mg SQ UD PRN; Protocol PRN Reason: Hypoglycemia Protocol Stop: 07/31/20 08:41 Glucose (Glucose 10 Tabs/Tube) 4 - 8 tabs PO UD PRN; Protocol PRN Reason: Hypoglycemia Protocol Stop: 07/31/20 08:41 Glucose (Glucose 40% Gel 15 Gm Tube) 15 - 30 gm PO UD PRN; Protocol PRN Reason: Hypoglycemia Protocol Stop: 07/31/20 08:41 Promethazine HCl 12.5 mg/ (Sodium Chloride) 50.5 mls @ 202 mls/hr IV Q6H PRN PRN Reason: Nausea And Vomiting Stop: 07/31/20 08:41 Last Infusion: 07/02/20 00:01 Dose: Infused Documented by: Methylprednisolone 20 mg/ (Syringe) 0.32 mls @ 1.5 mls/min IV Q8H [facility] Stop: 07/31/20 11:59 Last Admin: 07/02/20 03:57 Dose: 1.5 mls/min Documented by: Insulin Aspart (Insulin Aspart 100 Units/Ml 3 Ml Pen) 0 units SC ACHS RACHEL Stop: 07/31/20 08:59 Last Admin: 07/02/20 08:25 Dose: 11 units Documented by: Insulin Glargine (Insulin Glargine Solostar 100 Units/Ml 3 Ml Pen) 15 units SC BID [facility] Stop: 08/01/20 08:59 Last Admin: 07/02/20 08:26 Dose: 15 units Documented by: Lactobacillus Acidoph/Casei/Rhamnos (Advanced Probiotic 1250 Mg Capsule) 2 cap PO TIDM RACHEL Stop: 07/31/20 11:59 Last Admin: 07/02/20 08:23 Dose: 2 cap Documented by: Levothyroxine Sodium (Levothyroxine Sodium 75 Mcg Tablet) 75 mcg PO DAILYBB [facility] Stop: 07/31/20 08:59 Last Admin: 07/02/20 05:56 Dose: 75 mcg Documented by: Mesalamine (Mesalamine 800 Mg Tabcr) 800 mg PO TID [facility] Stop: 07/31/20 08:59 Last Admin: 07/02/20 08:24 Dose: 800 mg Documented by: Miscellaneous (Carbohydrates For Hypoglycemia ) 15 - 30 gm PO UD PRN PRN Reason: Hypoglycemia Protocol Stop: 07/31/20 08:41 Morphine Sulfate (Morphine Sulfate 4 Mg/Ml 1 Ml Carp\Vial) 4 mg IV Q4H PRN PRN Reason: Pain Stop: 07/15/20 08:41 Multivitamins/Minerals (Calcium 600mg + Vit D 400 Iu Tab) 1 tab PO [facility] Stop: 07/31/20 08:59 Last Admin: 07/02/20 08:23 Dose: 1 tab Documented by: Pantoprazole Sodium (Pantoprazole 40 Mg Tab) 40 mg PO [facility] Stop: 07/31/20 08:59 Last Admin: 07/02/20 08:27 Dose: 40 mg Documented by: Sertraline HCl (Sertraline Hcl 50 Mg Tablet) 50 mg PO [facility] Stop: 07/31/20 08:59 Last Admin: 07/02/20 08:27 Dose: 50 mg Documented by: Tramadol HCl (Tramadol Hcl 50 Mg Tablet) 25 - 50 mg PO Q4H PRN PRN Reason: Pain Stop: 07/31/20 08:41 Trazodone HCl (Trazodone Hcl 50 Mg Tab) 50 mg PO HS PRN PRN Reason: Sleep Stop: 07/31/20 08:41 Vitamin D (Cholecalciferol 1,000 Units 25 Mcg Tab) 1,000 units PO [facility] Stop: 07/31/20 08:59 Last Admin: 07/02/20 08:27 Dose: 1,000 units Documented by: (1) Crohn's colitis Digestive disease complication type: with rectal bleeding Qualified Code(s): K50.111 - Crohn's disease of large intestine with rectal bleeding
[2020-07-02] MEDS: CHOLESTYRAMINE LIGHT 4 GM PKT PO SCH ×2 (09:34→22:14)
--- NOTE | 2020-07-02 10:48 | Gastroenterology Progress Note ---
Date of Service July 02, 2020 Assessment & Plan (1) Acute GI bleeding: This is a 64 y/o female with IBD on Stelara, complicated by DVT on Eliquis, presenting with recurrent hematochezia. This AM appears to be feeling improved with slowing down of hematochezia; though no stool to collect for C. diff. HGB 8.1; overall appears stable. Tolerating clears; abd soft. Overall considerations for BRBPR are possible c. diff vs underlying IBD vs due to AC. - Await C. diff testing - If C. diff neg, would restart budesonide at 3 mg daily along with her Stelara - If C. diff + would then recommend this be treated as appropriate - Monitor and document GI output - Eliquis is on hold per primary team - Trend H&H, transfuse PRN - Would continue supportive care with hydration, can consider full liquids later today - Pt is on daily PPI and would recommend that as well - Appears she is set-up to see Dr. El of colorectal surgery as an outpt in the spring - Would recommend pt f/u with GI team as an outpt Admission and Anticipated Discharge Date Admission Date: July 01, 2020 Supervising Physician Co-Signing Physician Notes I saw and evaluated the patient. She notes that her discomfort is much improved today after starting low-dose budesonide yesterday. She has noted very little hematochezia over the last 24 hours. Recommendations Continue budesonide 3 mg daily Continue Stelara Clinic follow-up with her normal GI provider in 2 weeks Anticoagulation per general medicine service Subjective Pt seen in f/u hematochezia, feeling improved this AM. Overnight she's had no stool to collect for C. diff, however hematochezia has slowed; had a few small trickles. Abd pain is improving; pt feeling better overall. Denies melena, n/v, hematemesis, CP, SOB, fever. Review of Systems Review of Systems: All systems reviewed & are unremarkable except as noted in HPI & below Physical Exam Constitutional: WD/WN, vitals as above no acute distress Eyes: PERRL, conjunctivae normal, anicteric sclerae Respiratory: normal respiratory effort Cardiovascular: RRR, no murmur, no edema Gastrointestinal (Abdomen): Inspection/Auscultation: abdomen normal to inspection and normal bowel sounds; abdomen not distended Percussion/Palpation: abdomen soft Skin: no rashes, warm and dry Psychiatric: A+Ox3, euthymic affect Results & Data ([facility]) Vital Signs (Past 12 Hours) Vital Signs Temp Pulse Pulse Resp BP BP Pulse Ox 07/02/20 09:58 69 07/02/20 06:34 36.6 C 77 18 120/66 97 07/02/20 05:08 36.5 C 73 16 126/70 96 07/02/20 00:29 88 07/01/20 23:16 36.6 C 98 H 16 124/74 99
[2020-07-02] MEDS: BUDESONIDE EC 3 MG CAP PO SCH (14:15)
[2020-07-02 14:33] LABS: Cdiff Antigen Positive
[2020-07-02 14:34] LABS: Cdiff Toxin A+B Negative Cdiff Toxin (Negative)
[2020-07-02] MEDS: ATORVASTATIN 40 MG TAB PO SCH (20:57)
[2020-07-03] MEDS: LEVOTHYROXINE SODIUM 75 MCG TABLET PO SCH (05:48)
[2020-07-03 07:01] LABS: Hematocrit (blood only) 25.5 % (37-47); Hemoglobin 7.4 g/dL (12.0-16.0); Mean Corpuscular Hemoglobin 23.4 pg (25-34); Mean Corpuscular Volume 80.7 fL (80-100); Mean Platelet Volume 8.7 fL (7.4-10.4); Platelet Count 439 K/uL (130-400); RDW Coefficient of Variation 18.7 % (11.5-14.5); RDW Standard Deviation 54.5 fL (36.4-46.3); Red Blood Count 3.16 M/uL (4.2-5.4); White Blood Count 7.38 K/uL (4.8-10.8)
[2020-07-03 07:03] LABS: Basophils # (auto) 0.01 K/uL (0-0.2); Basophils % (auto) 0.1 %; Eosinophils # (auto) 0.03 K/uL (0-0.5); Eosinophils % (auto) 0.4 %; Immature Granulocytes # (auto) 0.06 K/uL (0.00-0.02); Immature Granulocytes % (auto) 0.8 %; Lymphocytes # (auto) 1.23 K/uL (1.2-3.4); Lymphocytes % (auto) 16.7 %; Monocytes # (auto) 0.78 K/uL (0.11-0.59); Monocytes % (auto) 10.6 %; Neutrophils # (auto) 5.27 K/uL (1.4-6.5); Neutrophils % (auto) 71.4 %; Ovalocytes 1+; Poikilocytosis Present; Tear Drop Cells 1+
[2020-07-03 07:09] LABS: BUN Creatinine Ratio 16.7 (10-20); Calcium 8.2 mg/dl (8.5-10.1); Creatinine Clr Calc Pharmacy 52.4 ml/min; Est GFR (African American) 71.9; Est GFR (Non-African American) 62.1; Potassium 3.8 mmol/L (3.5-5.1)
[2020-07-03] MEDS: CHOLECALCIFEROL 1,000 UNITS 25 MCG TAB PO SCH (07:49)
[2020-07-03] MEDS: SERTRALINE HCL 50 MG TABLET PO SCH (07:50)
[2020-07-03] MEDS: CALCIUM 600MG + VIT D 400 IU TAB PO SCH (07:50)
[2020-07-03] MEDS: ADVANCED PROBIOTIC 1250 MG CAPSULE PO SCH ×3 (07:50→17:46)
[2020-07-03] MEDS: MESALAMINE 800 MG TABCR PO SCH ×3 (07:50→21:18)
[2020-07-03] MEDS: BUDESONIDE EC 3 MG CAP PO SCH (07:51)
[2020-07-03] MEDS: PANTOprazole 40 MG TAB PO SCH (07:51)
[2020-07-03] MEDS: CARBOHYDRATES FOR HYPOGLYCEMIA PO PRN ×2 (08:05→20:24)
[2020-07-03] MEDS: INSULIN GLARGINE SOLOSTAR 100 UNITS/ML 3 ML PEN SC SCH (08:27)
[2020-07-03] MEDS: INSULIN ASPART 100 UNITS/ML 3 ML PEN SC SCH ×4 (08:27→21:15)
--- NOTE | 2020-07-03 09:23 | Hospitalist Progress Note ---
Date of Service July 03, 2020 Assessment & Plan (1) Crohn's colitis: Recurrent IBD flare up. C-diff ruled out on sample. She is positive for the gene but negative for toxin She is feeling better IV methylprednisolone was switched to budesonide 3mg daily per GI recommendations. Cont home mesalamine, Questran and stelara (next injection due in Aug) (2) Acute GI bleeding: GI recommendations noted Still having hematochezia though she reports it is improving Hb is 7.4 from 8.1 yesterday Continue to hold eliquis Monitor Hb and transfuse prn to keep Hb >7 (3) Acute on chronic blood loss anemia: Hb 7.4 today Reports she gets iv iron occasionally Check iron, ferritin, TIBC, etc. Based on result, will consider iron infusion Monitor and transfuse prn to keep Hb>7 (4) 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: On Eliquis s/p IVC filter. Eliquis on hold currently. Patient requires lifelong anticoagulation. Will discuss anticoagulation with patient and GI prior to discharge once stabilized (5) DMII (diabetes mellitus, type 2): Uncontrolled at baseline. Also uncontrolled inpatient secondary to increased steroid administration. Was hypoglycemic this morning. Will monitor and adjust insulin regimen as appropriate. (6) DVT prophylaxis: SCDs (chemoprophy contraindicated in setting of hematochezia) Full Code Dispo-cont hospitalization pending improvement in pain and hematochezia. To home when medically stable Admission and Anticipated Discharge Date Admission Date: July 01, 2020 Subjective Patient seen and examined. Reports feeling slightly better today Still reports hematochezia Reports abd pain is better today Denied nausea, vomiting Denied cough, chest pain, SOB Denied dizziness, palpitation Review of Systems Review of Systems: All systems reviewed & are unremarkable except as noted in Subjective Physical Exam Constitutional: well developed, well nourished and + well hydrated; no acute distress Eyes: PERRL, conjunctivae normal, anicteric sclerae ENMT: external ear and nose normal, oropharynx normal Respiratory: normal respiratory effort, lungs clear to auscultation Cardiovascular: RRR, no murmur, no edema Gastrointestinal (Abdomen): normal bowel sounds, soft, nontender, no hepatosplenomegaly Musculoskeletal: no cyanosis or clubbing, extremities motor strength 5/5 Neurologic: PERRL, EOMI, accommodation nl, no face palsy, no dysarthria Psychiatric: A+Ox3, euthymic affect Results & Data Results & Data ([facility]) Vital Signs (Past 12 Hours) Vital Signs Temp Pulse Pulse Resp BP BP Pulse Ox 07/03/20 07:13 36.9 C 79 20 124/71 100 07/03/20 03:26 36.6 C 81 17 97/56 L 99 07/03/20 00:11 110 H 07/02/20 22:00 37.1 C 87 16 126/81 97 Laboratory Results Laboratory Results - last 24 hr 07/02/20 07/02/20 07/02/20 11:37 12:05 16:52 WBC RBC Hgb Hct MCV MCH MCHC RDW Std Deviation RDW Coeff of Conchis Plt Count MPV Immature Gran % (Auto) Neut % (Auto) Lymph % (Auto) Haakon % (Auto) Eos % (Auto) Baso % (Auto) Neut # (Auto) Lymph # (Auto) Haakon # (Auto) Eos # (Auto) Baso # (Auto) Immature Gran # (Auto) Poikilocytosis Tear Drop Cells Ovalocytes Sodium Potassium Chloride Carbon Dioxide Anion Gap BUN Creatinine Est Cr Clr Drug Dosing Est GFR ( Amer) Est GFR (Non-Af Amer) BUN/Creatinine Ratio Glucose POC Glucose 260 H 170 H Calcium Stl C. diff Tox B Gene Positive Cdiff Gene H Stl C.difficile Tox A&B Negative Cdiff Toxin 07/02/20 07/03/20 07/03/20 20:19 06:08 06:08 WBC 7.38 RBC 3.16 L Hgb 7.4 L Hct 25.5 L MCV 80.7 MCH 23.4 L MCHC 29.0 L RDW Std Deviation 54.5 H RDW Coeff of Conchis 18.7 H Plt Count 439 H MPV 8.7 Immature Gran % (Auto) 0.8 Neut % (Auto) 71.4 Lymph % (Auto) 16.7 Haakon % (Auto) 10.6 Eos % (Auto) 0.4 Baso % (Auto) 0.1 Neut # (Auto) 5.27 Lymph # (Auto) 1.23 Haakon # (Auto) 0.78 H Eos # (Auto) 0.03 Baso # (Auto) 0.01 Immature Gran # (Auto) 0.06 H Poikilocytosis Present Tear Drop Cells 1+ Ovalocytes 1+ Sodium 144 Potassium 3.8 Chloride 115 H Carbon Dioxide 22 Anion Gap 7.0 BUN 16 Creatinine 0.96 Est Cr Clr Drug Dosing 52.4 Est GFR ( Amer) 71.9 Est GFR (Non-Af Amer) 62.1 BUN/Creatinine Ratio 16.7 Glucose 70 POC Glucose 200 H Calcium 8.2 L Stl C. diff Tox B Gene Stl C.difficile Tox A&B 07/03/20 07/03/20 07/03/20 07:55 07:57 08:17 WBC RBC Hgb Hct MCV MCH MCHC RDW Std Deviation RDW Coeff of Conchis Plt Count MPV Immature Gran % (Auto) Neut % (Auto) Lymph % (Auto) Haakon % (Auto) Eos % (Auto) Baso % (Auto) Neut # (Auto) Lymph # (Auto) Haakon # (Auto) Eos # (Auto) Baso # (Auto) Immature Gran # (Auto) Poikilocytosis Tear Drop Cells Ovalocytes Sodium Potassium Chloride Carbon Dioxide Anion Gap BUN Creatinine Est Cr Clr Drug Dosing Est GFR ( Amer) Est GFR (Non-Af Amer) BUN/Creatinine Ratio Glucose POC Glucose 67 L* 61 L* 65 L* Calcium Stl C. diff Tox B Gene Stl C.difficile Tox A&B 07/03/20 08:19 WBC RBC Hgb Hct MCV MCH MCHC RDW Std Deviation RDW Coeff of Conchis Plt Count MPV Immature Gran % (Auto) Neut % (Auto) Lymph % (Auto) Haakon % (Auto) Eos % (Auto) Baso % (Auto) Neut # (Auto) Lymph # (Auto) Haakon # (Auto) Eos # (Auto) Baso # (Auto) Immature Gran # (Auto) Poikilocytosis Tear Drop Cells Ovalocytes Sodium Potassium Chloride Carbon Dioxide Anion Gap BUN Creatinine Est Cr Clr Drug Dosing Est GFR ( Amer) Est GFR (Non-Af Amer) BUN/Creatinine Ratio Glucose POC Glucose 73 Calcium Stl C. diff Tox B Gene Stl C.difficile Tox A&B (1) Crohn's colitis Digestive disease complication type: with rectal bleeding Qualified Code(s): K50.111 - Crohn's disease of large intestine with rectal bleeding
[2020-07-03] MEDS: CHOLESTYRAMINE LIGHT 4 GM PKT PO SCH ×2 (09:54→22:18)
[2020-07-03 10:24] LABS: Ferritin 39.7 ng/ml (8-388)
--- NOTE | 2020-07-03 11:46 | Gastroenterology Progress Note ---
Date of Service July 03, 2020 Assessment & Plan (1) Acute lower GI bleeding: This is a 64 y/o female with IBD on Stelara, complicated by DVT on Eliquis, admitted with hematochezia. She was found to be + for C. diff toxin, but - for the gene. Budesonide has been restarted and pt is feeling overall much improved with regard to abd pain. She continues to have a small amt of hematochezia; HGB 7.4. - Continue budesonide 3 mg daily - Continue Stelara - Would not tx for C. diff at this time; she may be a carrier - Would suggest she f/u with typical outpt GI provider in 2 weeks - Would defer mgmt of her anticoagulation to the primary service. - Would suggest monitoring her HGB and consider IV iron infusion vs pRBC transfusion if needed - Can advance diet as tolerated - GI will sign off, please call with questions (2) Crohns disease: Admission and Anticipated Discharge Date Admission Date: July 01, 2020 Supervising Physician Co-Signing Physician Notes I saw and evaluated the patient. She notes that she has very limited amounts of melena daily at this point. She does appear to be doing better today and from our standpoint we would recommend that she continue with her regimen of therapy for Crohn's disease. She was restarted on budesonide from Solu-Medrol yesterday. Of note the patient was C. difficile positive however she is toxin negative would suggest that she does not have an active infection at the present time. Please call with any additional questions or concerns. Subjective Pt seen in f/u hematochezia in the setting of AC and IBD on Stelara. She continues to improve; states abd pain is minimal. Tolerated breakfast. Had small trickles of hematochezia which seem to be improving. Denies n/v, hematemesis, melena, fever, CP, SOB. HGB today 7.4. She was + for C. diff gene but negative for toxin. Review of Systems Review of Systems: All systems reviewed & are unremarkable except as noted in HPI & below Physical Exam Constitutional: WD/WN, vitals as above Respiratory: normal respiratory effort Cardiovascular: Rate/Rhythm: regular rate and regular rhythm Gastrointestinal (Abdomen): normal bowel sounds, soft, nontender, no hepatosplenomegaly Skin: no rashes, warm and dry Psychiatric: A+Ox3, euthymic affect Results & Data ([facility]) Vital Signs (Past 12 Hours) Vital Signs Temp Pulse Pulse Resp BP BP Pulse Ox 07/03/20 11:35 36.8 C 85 18 118/70 100 07/03/20 09:28 74 07/03/20 07:13 36.9 C 79 20 124/71 100 07/03/20 03:26 36.6 C 81 17 97/56 L 99 07/03/20 00:11 110 H Laboratory Results 07/03/20 07/03/20 07/03/20 Range/Units 11:42 09:40 09:40 WBC (4.8-10.8) K/uL RBC (4.2-5.4) M/uL Hgb (12.0-16.0) g/dL Hct (37-47) % MCV (80-100) fL MCH (25-34) pg MCHC (32-36) g/dL RDW Std Deviation (36.4-46.3) fL RDW Coeff of Conchis (11.5-14.5) % Plt Count (130-400) K/uL MPV (7.4-10.4) fL Immature Gran % (Auto) % Neut % (Auto) % Lymph % (Auto) % [place] % (Auto) % Eos % (Auto) % Baso % (Auto) % Neut # (Auto) (1.4-6.5) K/uL Lymph # (Auto) (1.2-3.4) K/uL [place] # (Auto) (0.11-0.59) K/uL Eos # (Auto) (0-0.5) K/uL Baso # (Auto) (0-0.2) K/uL Immature Gran # (Auto) (0.00-0.02) K/uL Poikilocytosis Tear Drop Cells Ovalocytes Sodium (136-145) mmol/L Potassium (3.5-5.1) mmol/L Chloride (98-107) mmol/L Carbon Dioxide (21-32) mmol/L Anion Gap (3-11) BUN (7-18) mg/dl Creatinine (0.6-1.2) mg/dl Est Cr Clr Drug Dosing ml/min Est GFR ( Amer) Est GFR (Non-Af Amer) BUN/Creatinine Ratio (10-20) Glucose (70-99) mg/dl POC Glucose Pending (70-99) mg/dl Calcium (8.5-10.1) mg/dl Iron 15 L (35-150) mcg/dl TIBC 214 L (250-450) mcg/dl Transferrin 163 L (200-360) mg/dl Ferritin 39.7 (8-388) ng/ml Vitamin B12 476 (193-986) pg/ml Folate (>5.38) ng/ml Stl C. diff Tox B Gene (Neg) Stl C.difficile Tox A&B (Negative) 07/03/20 07/03/20 07/03/20 Range/Units 09:40 08:19 08:17 WBC (4.8-10.8) K/uL RBC (4.2-5.4) M/uL Hgb (12.0-16.0) g/dL Hct (37-47) % MCV (80-100) fL MCH (25-34) pg MCHC (32-36) g/dL RDW Std Deviation (36.4-46.3) fL RDW Coeff of Conchis (11.5-14.5) % Plt Count (130-400) K/uL MPV (7.4-10.4) fL Immature Gran % (Auto) % Neut % (Auto) % Lymph % (Auto) % [place] % (Auto) % Eos % (Auto) % Baso % (Auto) % Neut # (Auto) (1.4-6.5) K/uL Lymph # (Auto) (1.2-3.4) K/uL [place] # (Auto) (0.11-0.59) K/uL Eos # (Auto) (0-0.5) K/uL Baso # (Auto) (0-0.2) K/uL Immature Gran # (Auto) (0.00-0.02) K/uL Poikilocytosis Tear Drop Cells Ovalocytes Sodium (136-145) mmol/L Potassium (3.5-5.1) mmol/L Chloride (98-107) mmol/L Carbon Dioxide (21-32) mmol/L Anion Gap (3-11) BUN (7-18) mg/dl Creatinine (0.6-1.2) mg/dl Est Cr Clr Drug Dosing ml/min Est GFR ( Amer) Est GFR (Non-Af Amer) BUN/Creatinine Ratio (10-20) Glucose (70-99) mg/dl POC Glucose 73 65 L* (70-99) mg/dl Calcium (8.5-10.1) mg/dl Iron (35-150) mcg/dl TIBC (250-450) mcg/dl Transferrin (200-360) mg/dl Ferritin (8-388) ng/ml Vitamin B12 (193-986) pg/ml Folate > 20.00 (>5.38) ng/ml Stl C. diff Tox B Gene (Neg) Stl C.difficile Tox A&B (Negative) 07/03/20 07/03/20 07/03/20 Range/Units 07:57 07:55 06:08 WBC (4.8-10.8) K/uL RBC (4.2-5.4) M/uL Hgb (12.0-16.0) g/dL Hct (37-47) % MCV (80-100) fL MCH (25-34) pg MCHC (32-36) g/dL RDW Std Deviation (36.4-46.3) fL RDW Coeff of Conchis (11.5-14.5) % Plt Count (130-400) K/uL MPV (7.4-10.4) fL Immature Gran % (Auto) % Neut % (Auto) % Lymph % (Auto) % [place] % (Auto) % Eos % (Auto) % Baso % (Auto) % Neut # (Auto) (1.4-6.5) K/uL Lymph # (Auto) (1.2-3.4) K/uL [place] # (Auto) (0.11-0.59) K/uL Eos # (Auto) (0-0.5) K/uL Baso # (Auto) (0-0.2) K/uL Immature Gran # (Auto) (0.00-0.02) K/uL Poikilocytosis Tear Drop Cells Ovalocytes Sodium 144 (136-145) mmol/L Potassium 3.8 (3.5-5.1) mmol/L Chloride 115 H (98-107) mmol/L Carbon Dioxide 22 (21-32) mmol/L Anion Gap 7.0 (3-11) BUN 16 (7-18) mg/dl Creatinine 0.96 (0.6-1.2) mg/dl Est Cr Clr Drug Dosing 52.4 ml/min Est GFR ( Amer) 71.9 Est GFR (Non-Af Amer) 62.1 BUN/Creatinine Ratio 16.7 (10-20) Glucose 70 (70-99) mg/dl POC Glucose 61 L* 67 L* (70-99) mg/dl Calcium 8.2 L (8.5-10.1) mg/dl Iron (35-150) mcg/dl TIBC (250-450) mcg/dl Transferrin (200-360) mg/dl Ferritin (8-388) ng/ml Vitamin B12 (193-986) pg/ml Folate (>5.38) ng/ml Stl C. diff Tox B Gene (Neg) Stl C.difficile Tox A&B (Negative) 07/03/20 07/02/20 07/02/20 Range/Units 06:08 20:19 16:52 WBC 7.38 (4.8-10.8) K/uL RBC 3.16 L (4.2-5.4) M/uL Hgb 7.4 L (12.0-16.0) g/dL Hct 25.5 L (37-47) % MCV 80.7 (80-100) fL MCH 23.4 L (25-34) pg MCHC 29.0 L (32-36) g/dL RDW Std Deviation 54.5 H (36.4-46.3) fL RDW Coeff of Conchis 18.7 H (11.5-14.5) % Plt Count 439 H (130-400) K/uL MPV 8.7 (7.4-10.4) fL Immature Gran % (Auto) 0.8 % Neut % (Auto) 71.4 % Lymph % (Auto) 16.7 % [place] % (Auto) 10.6 % Eos % (Auto) 0.4 % Baso % (Auto) 0.1 % Neut # (Auto) 5.27 (1.4-6.5) K/uL Lymph # (Auto) 1.23 (1.2-3.4) K/uL [place] # (Auto) 0.78 H (0.11-0.59) K/uL Eos # (Auto) 0.03 (0-0.5) K/uL Baso # (Auto) 0.01 (0-0.2) K/uL Immature Gran # (Auto) 0.06 H (0.00-0.02) K/uL Poikilocytosis Present Tear Drop Cells 1+ Ovalocytes 1+ Sodium (136-145) mmol/L Potassium (3.5-5.1) mmol/L Chloride (98-107) mmol/L Carbon Dioxide (21-32) mmol/L Anion Gap (3-11) BUN (7-18) mg/dl Creatinine (0.6-1.2) mg/dl Est Cr Clr Drug Dosing ml/min Est GFR ( Amer) Est GFR (Non-Af Amer) BUN/Creatinine Ratio (10-20) Glucose (70-99) mg/dl POC Glucose 200 H 170 H (70-99) mg/dl Calcium (8.5-10.1) mg/dl Iron (35-150) mcg/dl TIBC (250-450) mcg/dl Transferrin (200-360) mg/dl Ferritin (8-388) ng/ml Vitamin B12 (193-986) pg/ml Folate (>5.38) ng/ml Stl C. diff Tox B Gene (Neg) Stl C.difficile Tox A&B (Negative) 07/02/20 Range/Units 12:05 WBC (4.8-10.8) K/uL RBC (4.2-5.4) M/uL Hgb (12.0-16.0) g/dL Hct (37-47) % MCV (80-100) fL MCH (25-34) pg MCHC (32-36) g/dL RDW Std Deviation (36.4-46.3) fL RDW Coeff of Conchis (11.5-14.5) % Plt Count (130-400) K/uL MPV (7.4-10.4) fL Immature Gran % (Auto) % Neut % (Auto) % Lymph % (Auto) % [place] % (Auto) % Eos % (Auto) % Baso % (Auto) % Neut # (Auto) (1.4-6.5) K/uL Lymph # (Auto) (1.2-3.4) K/uL [place] # (Auto) (0.11-0.59) K/uL Eos # (Auto) (0-0.5) K/uL Baso # (Auto) (0-0.2) K/uL Immature Gran # (Auto) (0.00-0.02) K/uL Poikilocytosis Tear Drop Cells Ovalocytes Sodium (136-145) mmol/L Potassium (3.5-5.1) mmol/L Chloride (98-107) mmol/L Carbon Dioxide (21-32) mmol/L Anion Gap (3-11) BUN (7-18) mg/dl Creatinine (0.6-1.2) mg/dl Est Cr Clr Drug Dosing ml/min Est GFR ( Amer) Est GFR (Non-Af Amer) BUN/Creatinine Ratio (10-20) Glucose (70-99) mg/dl POC Glucose (70-99) mg/dl Calcium (8.5-10.1) mg/dl Iron (35-150) mcg/dl TIBC (250-450) mcg/dl Transferrin (200-360) mg/dl Ferritin (8-388) ng/ml Vitamin B12 (193-986) pg/ml Folate (>5.38) ng/ml Stl C. diff Tox B Gene Positive Cdiff Gene H (Neg) Stl C.difficile Tox A&B Negative Cdiff Toxin (Negative) (1) Crohns disease Digestive disease complication type: unspecified complication Gastrointestinal tract location: unspecified location Qualified Code(s): K50.919 - Crohn's disease, unspecified, with unspecified complications
[2020-07-03] MEDS ORDERED: IRON SUCROSE 200 MG in 0.9 % SODIUM CHLORIDE 100 ML IV ONE (19:15)
[2020-07-03] MEDS ORDERED: INSULIN GLARGINE SOLOSTAR 100 UNITS/ML 3 ML PEN SC SCH (21:00)
[2020-07-03] MEDS: ATORVASTATIN 40 MG TAB PO SCH (21:18)
[2020-07-04] MEDS: LEVOTHYROXINE SODIUM 75 MCG TABLET PO SCH (06:06)
[2020-07-04 06:31] LABS: Hematocrit (blood only) 26.3 % (37-47); Hemoglobin 7.7 g/dL (12.0-16.0); Mean Corpuscular Hemoglobin 23.3 pg (25-34); Mean Corpuscular Hgb Conc 29.3 g/dL (32-36); Mean Corpuscular Volume 79.7 fL (80-100); Mean Platelet Volume 8.9 fL (7.4-10.4); Platelet Count 397 K/uL (130-400); RDW Coefficient of Variation 18.5 % (11.5-14.5); RDW Standard Deviation 54.1 fL (36.4-46.3); White Blood Count 11.39 K/uL (4.8-10.8)
[2020-07-04 07:10] LABS: Est GFR (African American) 82.2; Potassium 3.5 mmol/L (3.5-5.1)
[2020-07-04 07:11] LABS: BUN Creatinine Ratio 17.9 (10-20); Calcium 8.3 mg/dl (8.5-10.1); Creatinine Clr Calc Pharmacy 58.4 ml/min; Est GFR (Non-African American) 70.9
[2020-07-04] MEDS: INSULIN GLARGINE SOLOSTAR 100 UNITS/ML 3 ML PEN SC SCH (08:52)
[2020-07-04] MEDS: INSULIN ASPART 100 UNITS/ML 3 ML PEN SC SCH ×4 (08:52→20:48)
[2020-07-04] MEDS: CALCIUM 600MG + VIT D 400 IU TAB PO SCH (08:53)
[2020-07-04] MEDS: ADVANCED PROBIOTIC 1250 MG CAPSULE PO SCH ×3 (08:54→17:04)
[2020-07-04] MEDS: MESALAMINE 800 MG TABCR PO SCH ×3 (08:54→20:16)
[2020-07-04] MEDS: SERTRALINE HCL 50 MG TABLET PO SCH (08:54)
[2020-07-04] MEDS: PANTOprazole 40 MG TAB PO SCH (08:55)
[2020-07-04] MEDS: CHOLESTYRAMINE LIGHT 4 GM PKT PO SCH ×2 (08:55→22:05)
[2020-07-04] MEDS: BUDESONIDE EC 3 MG CAP PO SCH (08:55)
[2020-07-04] MEDS: CHOLECALCIFEROL 1,000 UNITS 25 MCG TAB PO SCH (09:06)
--- NOTE | 2020-07-04 10:10 | Hospitalist Progress Note ---
Date of Service July 04, 2020 Assessment & Plan (1) Crohn's colitis: Recurrent IBD flare up. C-diff ruled out on sample. She is positive for the gene but negative for toxin Continues to have hematochezia IV methylprednisolone was switched to budesonide 3mg daily per GI recommendation s. Cont home mesalamine, Questran and stelara (next injection due in Aug) (2) Acute GI bleeding: GI recommendations noted Still having hematochezia though she reports it is improving Hb 7.7 this morning Continue to hold eliquis Monitor Hb and transfuse prn to keep Hb >7 (3) Acute on chronic blood loss anemia: Hb 7.7 today Reports she gets iv iron occasionally Anemia work-up showed iron deficiency Got IV iron yesterday Monitor and transfuse prn to keep Hb>7 (4) 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: On Eliquis s/p IVC filter. Eliquis on hold currently. Patient requires lifelong anticoagulation. Will discuss anticoagulation with patient and GI prior to discharge once stabilized (5) DMII (diabetes mellitus, type 2): Uncontrolled at baseline. Also uncontrolled inpatient secondary to increased steroid administration. Was hypoglycemic this morning. Insulin Lantus further reduced to 12 units daily (6) DVT prophylaxis: SCDs (chemoprophy contraindicated in setting of hematochezia) Full Code Dispo-cont hospitalization pending improvement in pain and hematochezia. To home when medically stable Admission and Anticipated Discharge Date Admission Date: July 01, 2020 Subjective Patient seen and examined. Reports having multiple episodes of bloody bowel movement yesterday. Associated with lower abdominal cramping and nausea. Denies vomiting Denies palpitation, dizziness, headache Denies cough, shortness of breath or dyspnea on exertion Review of Systems Review of Systems: All systems reviewed & are unremarkable except as noted in Subjective Physical Exam Constitutional: well developed, well nourished and + well hydrated; no acute distress Eyes: PERRL, conjunctivae normal, anicteric sclerae ENMT: external ear and nose normal, oropharynx normal Respiratory: normal respiratory effort, lungs clear to auscultation Cardiovascular: RRR, no murmur, no edema Gastrointestinal (Abdomen): normal bowel sounds, soft, nontender, no hepatosplenomegaly Musculoskeletal: no cyanosis or clubbing, extremities motor strength 5/5 Neurologic: PERRL, EOMI, accommodation nl, no face palsy, no dysarthria Psychiatric: A+Ox3, euthymic affect Results & Data Results & Data ([facility]) Vital Signs (Past 12 Hours) Vital Signs Temp Pulse Pulse Resp BP Pulse Ox 07/04/20 10:05 87 07/04/20 09:59 36.6 C 93 H 19 107/71 98 07/04/20 04:47 36.6 C 104 H 19 95/58 L 95 07/04/20 02:13 109 H 07/04/20 00:10 36.6 C 76 16 103/63 96 Laboratory Results Laboratory Results - last 24 hr 07/03/20 07/03/20 07/03/20 11:42 16:45 20:13 WBC RBC Hgb Hct MCV MCH MCHC RDW Std Deviation RDW Coeff of Conchis Plt Count MPV Sodium Potassium Chloride Carbon Dioxide Anion Gap BUN Creatinine Est Cr Clr Drug Dosing Est GFR ( Amer) Est GFR (Non-Af Amer) BUN/Creatinine Ratio Glucose POC Glucose 90 89 62 L* Calcium 07/03/20 07/03/20 07/04/20 20:14 20:44 06:03 WBC 11.39 H RBC 3.30 L Hgb 7.7 L Hct 26.3 L MCV 79.7 L MCH 23.3 L MCHC 29.3 L RDW Std Deviation 54.1 H RDW Coeff of Conchis 18.5 H Plt Count 397 MPV 8.9 Sodium Potassium Chloride Carbon Dioxide Anion Gap BUN Creatinine Est Cr Clr Drug Dosing Est GFR ( Amer) Est GFR (Non-Af Amer) BUN/Creatinine Ratio Glucose POC Glucose 64 L* 70 Calcium 07/04/20 07/04/20 06:03 08:00 WBC RBC Hgb Hct MCV MCH MCHC RDW Std Deviation RDW Coeff of Conchis Plt Count MPV Sodium 143 Potassium 3.5 Chloride 114 H Carbon Dioxide 23 Anion Gap 6.0 BUN 15 Creatinine 0.86 Est Cr Clr Drug Dosing 58.4 Est GFR ( Amer) 82.2 Est GFR (Non-Af Amer) 70.9 BUN/Creatinine Ratio 17.9 Glucose 58 L POC Glucose 75 Calcium 8.3 L (1) Crohn's colitis Digestive disease complication type: with rectal bleeding Qualified Code(s): K50.111 - Crohn's disease of large intestine with rectal bleeding
[2020-07-04] MEDS: ATORVASTATIN 40 MG TAB PO SCH (20:16)
[2020-07-05] MEDS: ACETAMINOPHEN 500 MG TAB PO PRN ×2 (01:01→08:10)
[2020-07-05 04:52] LABS: Hemoglobin 7.8 g/dL (12.0-16.0); Mean Corpuscular Hemoglobin 23.7 pg (25-34); Mean Platelet Volume 8.7 fL (7.4-10.4); Platelet Count 419 K/uL (130-400); RDW Coefficient of Variation 18.3 % (11.5-14.5); RDW Standard Deviation 52.6 fL (36.4-46.3); Red Blood Count 3.29 M/uL (4.2-5.4); White Blood Count 9.97 K/uL (4.8-10.8)
[2020-07-05] MEDS: PROMETHAZINE HCL 12.5 MG in SODIUM CHLORIDE 0.9% 50 ML IV PRN ×2 (05:04→23:59)
[2020-07-05 05:08] LABS: BUN Creatinine Ratio 16.2 (10-20); Calcium 7.9 mg/dl (8.5-10.1); Creatinine Clr Calc Pharmacy 46.9 ml/min; Est GFR (African American) 63.1; Est GFR (Non-African American) 54.4; Potassium 3.1 mmol/L (3.5-5.1)
[2020-07-05] MEDS ORDERED: ALUMINUM/MAGNESIUM/SIMETH (MAALOX MAX) 30 ML UDC PO STA (05:09)
[2020-07-05] MEDS ORDERED: POTASSIUM CHLORIDE CRTAB 20 MEQ TABCR PO STA (05:10)
[2020-07-05] MEDS: LEVOTHYROXINE SODIUM 75 MCG TABLET PO SCH (05:49)
[2020-07-05] MEDS ORDERED: POTASSIUM CHLORIDE PWD 20 MEQ PACK PO ONE (07:21)
[2020-07-05] MEDS: BUDESONIDE EC 3 MG CAP PO SCH (08:09)
[2020-07-05] MEDS: INSULIN ASPART 100 UNITS/ML 3 ML PEN SC SCH ×4 (08:09→22:20)
[2020-07-05] MEDS: CALCIUM 600MG + VIT D 400 IU TAB PO SCH (08:09)
[2020-07-05] MEDS: CHOLECALCIFEROL 1,000 UNITS 25 MCG TAB PO SCH (08:09)
[2020-07-05] MEDS: SERTRALINE HCL 50 MG TABLET PO SCH (08:09)
[2020-07-05] MEDS: ADVANCED PROBIOTIC 1250 MG CAPSULE PO SCH ×3 (08:10→17:41)
[2020-07-05] MEDS: PANTOprazole 40 MG TAB PO SCH (08:10)
[2020-07-05] MEDS: MESALAMINE 800 MG TABCR PO SCH ×3 (08:10→21:39)
[2020-07-05] MEDS: INSULIN GLARGINE SOLOSTAR 100 UNITS/ML 3 ML PEN SC SCH (08:11)
[2020-07-05 08:22] LABS: Albumin Level 1.7 gm/dl (3.4-5.0); Magnesium 1.8 mg/dl (1.8-2.4)
--- NOTE | 2020-07-05 09:04 | Hospitalist Progress Note ---
Date of Service July 05, 2020 Assessment & Plan (1) Crohn's colitis: Recurrent IBD flare up. C-diff ruled out on sample. She is positive for the gene but negative for toxin Continues to have hematochezia IV methylprednisolone was switched to budesonide 3mg daily per GI recommendation s. Cont home mesalamine, Questran and stelara (next injection due in Aug) Was hypokalemic this morning, repleted Ca is 7.9 but corrected for albumin is 9.7 (2) Acute GI bleeding: GI recommendations noted Still having hematochezia though she reports it is improving Hb stable 7.8 this morning Continue to hold eliquis Monitor Hb and transfuse prn to keep Hb >7 Patient mildly tachycardic this morning. Will keep on IVF maintenance (3) Acute on chronic blood loss anemia: Hb 7.8 today Reports she gets iv iron occasionally Anemia work-up showed iron deficiency Will give another dose of iv iron Monitor and transfuse prn to keep Hb>7 (4) 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: On Eliquis s/p IVC filter. Eliquis on hold currently. Patient requires lifelong anticoagulation. Will discuss anticoagulation with patient and GI prior to discharge once stabilized (5) DMII (diabetes mellitus, type 2): Uncontrolled at baseline. Had been uncontrolled inpatient secondary to increased steroid administration. Had some hypoglycemic episodes Better controlled now Continue reduced dose of Insulin Lantus at 12 units daily (6) DVT prophylaxis: SCDs (chemoprophy contraindicated in setting of hematochezia) Full Code Dispo-cont hospitalization pending improvement in pain and hematochezia. To home when medically stable Admission and Anticipated Discharge Date Admission Date: July 01, 2020 Subjective Patient seen and examined. Reports continuing hematochezia, lower abd cramps and intermittent nausea. Denied dizziness, vomiting, palpitations Denied cough, chest pain, SOB, [place] Review of Systems 2 Review of Systems: All systems reviewed & are unremarkable except as noted in Subjective Physical Exam Constitutional: well developed, well nourished and + well hydrated; no acute distress Eyes: PERRL and EOM intact bilaterally Pale conjunctiva ENMT: external ear and nose normal, oropharynx normal Respiratory: normal respiratory effort, lungs clear to auscultation Cardiovascular: RRR, no murmur, no edema Gastrointestinal (Abdomen): normal bowel sounds, soft, nontender, no hepatosplenomegaly Musculoskeletal: no cyanosis or clubbing, extremities motor strength 5/5 Neurologic: PERRL, EOMI, accommodation nl, no face palsy, no dysarthria Psychiatric: A+Ox3, euthymic affect Results & Data Results & Data ([facility]) Vital Signs (Past 12 Hours) Vital Signs Temp Pulse Pulse Resp BP BP Pulse Ox 07/05/20 07:51 36.6 C 102 H 19 114/75 98 07/05/20 04:06 36.7 C 93 H 20 100/62 99 07/05/20 00:15 101 H 07/04/20 23:47 37.3 C 101 H 18 117/66 97 Laboratory Results Laboratory Results - last 24 hr 07/04/20 07/04/20 07/04/20 11:13 16:59 20:14 WBC RBC Hgb Hct MCV MCH MCHC RDW Std Deviation RDW Coeff of Conchis Plt Count MPV Sodium Potassium Chloride Carbon Dioxide Anion Gap BUN Creatinine Est Cr Clr Drug Dosing Est GFR ( Amer) Est GFR (Non-Af Amer) BUN/Creatinine Ratio Glucose POC Glucose 87 140 H 77 Calcium Magnesium Albumin 07/05/20 07/05/20 07/05/20 04:30 04:30 07:46 WBC 9.97 RBC 3.29 L Hgb 7.8 L Hct 26.0 L MCV 79.0 L MCH 23.7 L MCHC 30.0 L RDW Std Deviation 52.6 H RDW Coeff of Conchis 18.3 H Plt Count 419 H MPV 8.7 Sodium 140 Potassium 3.1 L Chloride 112 H Carbon Dioxide 21 Anion Gap 7.0 BUN 17 Creatinine 1.07 Est Cr Clr Drug Dosing 46.9 Est GFR ( Amer) 63.1 Est GFR (Non-Af Amer) 54.4 BUN/Creatinine Ratio 16.2 Glucose 72 POC Glucose 80 Calcium 7.9 L Magnesium Albumin 07/05/20 07:51 WBC RBC Hgb Hct MCV MCH MCHC RDW Std Deviation RDW Coeff of Conchis Plt Count MPV Sodium Potassium Chloride Carbon Dioxide Anion Gap BUN Creatinine Est Cr Clr Drug Dosing Est GFR ( Amer) Est GFR (Non-Af Amer) BUN/Creatinine Ratio Glucose POC Glucose Calcium Magnesium 1.8 Albumin 1.7 L (1) Crohn's colitis Digestive disease complication type: with rectal bleeding Qualified Code(s): K50.111 - Crohn's disease of large intestine with rectal bleeding
[2020-07-05] MEDS ORDERED: IRON SUCROSE 200 MG in 0.9 % SODIUM CHLORIDE 100 ML IV ONE (10:00)
[2020-07-05] MEDS: CHOLESTYRAMINE LIGHT 4 GM PKT PO SCH ×2 (10:06→22:12)
[2020-07-05] MEDS: NORMOSOL-R 1,000 ML IV SCH (10:10)
[2020-07-05] MEDS: ATORVASTATIN 40 MG TAB PO SCH (21:39)
[2020-07-05] MEDS: traMADol HCL 50 MG TABLET PO PRN (21:39)
[2020-07-06] MEDS: ACETAMINOPHEN 500 MG TAB PO PRN ×2 (00:19→23:45)
[2020-07-06] MEDS: NORMOSOL-R 1,000 ML IV SCH ×2 (01:14→16:02)
[2020-07-06] MEDS: LEVOTHYROXINE SODIUM 75 MCG TABLET PO SCH (06:32)
[2020-07-06] MEDS: CARBOHYDRATES FOR HYPOGLYCEMIA PO PRN ×2 (07:38→08:05)
[2020-07-06 07:40] LABS: Hematocrit (blood only) 24.7 % (37-47); Hemoglobin 7.5 g/dL (12.0-16.0); Mean Corpuscular Hemoglobin 24.2 pg (25-34); Mean Corpuscular Hgb Conc 30.4 g/dL (32-36); Mean Corpuscular Volume 79.7 fL (80-100); Mean Platelet Volume 9.3 fL (7.4-10.4); Platelet Count 378 K/uL (130-400); RDW Coefficient of Variation 18.5 % (11.5-14.5); RDW Standard Deviation 52.6 fL (36.4-46.3); White Blood Count 11.35 K/uL (4.8-10.8)
[2020-07-06] MEDS: CALCIUM 600MG + VIT D 400 IU TAB PO SCH (08:09)
[2020-07-06] MEDS: ADVANCED PROBIOTIC 1250 MG CAPSULE PO SCH ×3 (08:09→17:26)
[2020-07-06] MEDS: SERTRALINE HCL 50 MG TABLET PO SCH (08:10)
[2020-07-06] MEDS: CHOLECALCIFEROL 1,000 UNITS 25 MCG TAB PO SCH (08:10)
[2020-07-06] MEDS: BUDESONIDE EC 3 MG CAP PO SCH (08:10)
[2020-07-06] MEDS: PANTOprazole 40 MG TAB PO SCH (08:10)
[2020-07-06] MEDS: MESALAMINE 800 MG TABCR PO SCH ×3 (08:10→21:24)
[2020-07-06 08:27] LABS: BUN Creatinine Ratio 18.7 (10-20); Calcium 7.6 mg/dl (8.5-10.1); Creatinine Clr Calc Pharmacy 67.3 ml/min; Est GFR (African American) 96.9; Est GFR (Non-African American) 83.6; Potassium 3.3 mmol/L (3.5-5.1)
--- NOTE | 2020-07-06 08:47 | Hospitalist Progress Note ---
Date of Service July 06, 2020 Assessment & Plan (1) Crohn's colitis: Recurrent IBD flare up. C-diff ruled out on sample. She is positive for the gene but negative for toxin Continues to have hematochezia IV methylprednisolone was switched to budesonide 3mg daily per GI recommendation s. Cont home mesalamine, Questran and stelara (next injection due in Aug) Was hypokalemic this morning, repleted Ca is 7.6 but corrected for albumin is normal (2) Acute GI bleeding: GI recommendations noted Still having hematochezia though she reports it is improving Continue IVF Hb has been in the 7s Continue to hold eliquis Monitor Hb and transfuse prn to keep Hb >7 Will follow up with GI for further evaluation (3) Acute on chronic blood loss anemia: Hb 7.5 today Anemia work-up showed iron deficiency Got 2 doses of iv iron infusion Monitor and transfuse prn to keep Hb>7 (4) 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: On Eliquis s/p IVC filter. Eliquis on hold currently. Patient requires lifelong anticoagulation. Will discuss anticoagulation with patient and GI prior to discharge once stabilized (5) DMII (diabetes mellitus, type 2): Uncontrolled at baseline. Had been uncontrolled inpatient secondary to increased steroid administration. Had some hypoglycemic episodes. Also hypoglycemic this morning. Likely due to poor oral intake Hold lantus this AM Reduce lantus (6) DVT prophylaxis: SCDs (chemoprophy contraindicated in setting of hematochezia) Full Code Dispo-cont hospitalization pending improvement in pain and hematochezia. To home when medically stable Admission and Anticipated Discharge Date Admission Date: July 01, 2020 Subjective Patient seen and examined. Patient denies to have bloody bowel movement and crampy abdominal pain Continues to have intermittent nausea Denies any vomiting Denied palpitation, dizziness. Reported mild dizziness while walking 2 days ago but resolved so far. Review of Systems Review of Systems: All systems reviewed & are unremarkable except as noted in Subjective Physical Exam Constitutional: well developed, well nourished and + well hydrated; no acute distress Eyes: PERRL, conjunctivae normal, anicteric sclerae ENMT: external ear and nose normal, oropharynx normal Respiratory: normal respiratory effort, lungs clear to auscultation Cardiovascular: RRR, no murmur, no edema Gastrointestinal (Abdomen): normal bowel sounds, soft, nontender, no hepatosplenomegaly Musculoskeletal: no cyanosis or clubbing, extremities motor strength 5/5 Neurologic: PERRL, EOMI, accommodation nl, no face palsy, no dysarthria Psychiatric: A+Ox3, euthymic affect Results & Data Results & Data ([facility]) Vital Signs (Past 12 Hours) Vital Signs Temp Pulse Pulse Resp BP BP Pulse Ox 07/06/20 07:54 36.3 C L 70 16 96/57 L 100 07/06/20 05:54 69 07/06/20 02:58 36.6 C 83 20 98/65 L 99 07/05/20 23:00 36.7 C 84 18 99/63 L 98 Laboratory Results Laboratory Results - last 24 hr 07/05/20 07/05/20 07/06/20 16:42 21:08 07:07 WBC 11.35 H RBC 3.10 L Hgb 7.5 L Hct 24.7 L MCV 79.7 L MCH 24.2 L MCHC 30.4 L RDW Std Deviation 52.6 H RDW Coeff of Conchis 18.5 H Plt Count 378 MPV 9.3 Sodium Potassium Chloride Carbon Dioxide Anion Gap BUN Creatinine Est Cr Clr Drug Dosing Est GFR ( Amer) Est GFR (Non-Af Amer) BUN/Creatinine Ratio Glucose POC Glucose 96 112 H Calcium 07/06/20 07/06/20 07/06/20 07:07 07:33 07:34 WBC RBC Hgb Hct MCV MCH MCHC RDW Std Deviation RDW Coeff of Conchis Plt Count MPV Sodium 143 Potassium 3.3 L Chloride 115 H Carbon Dioxide 22 Anion Gap 6.0 BUN 14 Creatinine 0.75 D Est Cr Clr Drug Dosing 67.3 Est GFR ( Amer) 96.9 Est GFR (Non-Af Amer) 83.6 BUN/Creatinine Ratio 18.7 Glucose 48 L* POC Glucose 60 L* 58 L* Calcium 7.6 L 07/06/20 07/06/20 07/06/20 08:00 08:01 08:51 WBC RBC Hgb Hct MCV MCH MCHC RDW Std Deviation RDW Coeff of Conchis Plt Count MPV Sodium Potassium Chloride Carbon Dioxide Anion Gap BUN Creatinine Est Cr Clr Drug Dosing Est GFR ( Amer) Est GFR (Non-Af Amer) BUN/Creatinine Ratio Glucose POC Glucose 65 L* 65 L* 93 Calcium 07/06/20 11:42 WBC RBC Hgb Hct MCV MCH MCHC RDW Std Deviation RDW Coeff of Conchis Plt Count MPV Sodium Potassium Chloride Carbon Dioxide Anion Gap BUN Creatinine Est Cr Clr Drug Dosing Est GFR ( Amer) Est GFR (Non-Af Amer) BUN/Creatinine Ratio Glucose POC Glucose 127 H Calcium (1) Crohn's colitis Digestive disease complication type: with rectal bleeding Qualified Code(s): K50.111 - Crohn's disease of large intestine with rectal bleeding
[2020-07-06] MEDS: INSULIN ASPART 100 UNITS/ML 3 ML PEN SC SCH ×4 (08:56→21:27)
[2020-07-06] MEDS: INSULIN GLARGINE SOLOSTAR 100 UNITS/ML 3 ML PEN SC SCH (08:58)
[2020-07-06] MEDS: CHOLESTYRAMINE LIGHT 4 GM PKT PO SCH ×2 (09:17→21:25)
[2020-07-06] MEDS: POTASSIUM CHLORIDE / WTR 10 MEQ/100 ML PLCT IV SCH ×2 (09:19→10:28)
[2020-07-06] MEDS: methylPREDNISolone 20 MG in SYRINGE 0 ML IV SCH ×2 (16:02→23:47)
[2020-07-06] MEDS: ATORVASTATIN 40 MG TAB PO SCH (21:24)
[2020-07-07] MEDS: NORMOSOL-R 1,000 ML IV SCH (02:48)
[2020-07-07] MEDS: PROMETHAZINE HCL 12.5 MG in SODIUM CHLORIDE 0.9% 50 ML IV PRN ×2 (05:44→21:10)
[2020-07-07] MEDS: LEVOTHYROXINE SODIUM 75 MCG TABLET PO SCH (05:50)
--- NOTE | 2020-07-07 07:49 | Hospitalist Progress Note ---
Date of Service July 07, 2020 Assessment & Plan (1) Crohn's colitis: Recurrent IBD flare up. C-diff ruled out on sample. She is positive for the gene but negative for toxin Continues to have hematochezia Discussed with scada engineer yesterday. He recommended to hold budesonide and resume IV Solu-Medrol 20 g every 8h Will follow GI recommendations today Cont home mesalamine, Questran and stelara (next injection due in Aug) (2) Acute GI bleeding: Still having bloody bowel movement Hb has been in the 7s. Continue to hold eliquis Monitor Hb and transfuse prn to keep Hb >7 Will follow up with GI recommendations Discontinue IV fluids for now. Patient developing mild pedal edema (3) Acute on chronic blood loss anemia: Hb 7.6 Anemia work-up showed iron deficiency Got 2 doses of iv iron infusion Monitor and transfuse prn to keep Hb>7 (4) 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: On Eliquis s/p IVC filter. Eliquis on hold currently. Patient requires lifelong anticoagulation. Will discuss anticoagulation with patient and GI prior to discharge once stabilized (5) DMII (diabetes mellitus, type 2): Uncontrolled at baseline. Had been uncontrolled inpatient secondary to increased steroid administration. Had some hypoglycemic episodes. Likely due to poor oral intake Continue reduced dose of Lantus and monitor blood glucose (6) DVT prophylaxis: SCDs (chemoprophy contraindicated in setting of hematochezia) Full Code Dispo-cont hospitalization pending improvement in pain and hematochezia. To home when medically stable Admission and Anticipated Discharge Date Admission Date: July 01, 2020 Subjective Patient seen and examined Still reports abdominal cramps, nausea and bloody bowel movements. Discussed with scada engineer yesterday and started on IV Solu-Medrol and budesonide was held Denies any chest pain, cough, shortness of breath, dyspnea on exertion Denies palpitation, dizziness Review of Systems Review of Systems: All systems reviewed & are unremarkable except as noted in Subjective Physical Exam Constitutional: well developed, well nourished and + well hydrated; no acute distress Eyes: PERRL and EOM intact bilaterally Pale conjunctiva ENMT: external ear and nose normal, oropharynx normal Respiratory: normal respiratory effort, lungs clear to auscultation Cardiovascular: Rate/Rhythm: regular rate and regular rhythm S1-S2. +1 pedal edema Gastrointestinal (Abdomen): normal bowel sounds, soft, nontender, no hepatosplenomegaly Musculoskeletal: no cyanosis or clubbing, extremities motor strength 5/5 Neurologic: PERRL, EOMI, accommodation nl, no face palsy, no dysarthria Psychiatric: A+Ox3, euthymic affect Results & Data Results & Data ([facility]) Vital Signs (Past 12 Hours) Vital Signs Temp Pulse Pulse Resp BP BP Pulse Ox 07/07/20 07:13 89 07/07/20 04:59 36.6 C 73 22 147/69 H 100 07/07/20 00:37 86 07/06/20 23:28 36.8 C 85 20 120/69 96 Laboratory Results Laboratory Results - last 24 hr 07/06/20 07/06/20 07/06/20 11:42 16:42 20:29 POC Glucose 127 H 100 H 226 H 07/07/20 07:38 POC Glucose 169 H (1) Crohn's colitis Digestive disease complication type: with rectal bleeding Qualified Code(s): K50.111 - Crohn's disease of large intestine with rectal bleeding
[2020-07-07] MEDS: INSULIN ASPART 100 UNITS/ML 3 ML PEN SC SCH ×4 (08:58→21:02)
[2020-07-07] MEDS: ADVANCED PROBIOTIC 1250 MG CAPSULE PO SCH ×3 (08:59→17:08)
[2020-07-07] MEDS: INSULIN GLARGINE SOLOSTAR 100 UNITS/ML 3 ML PEN SC SCH (09:00)
[2020-07-07] MEDS: CALCIUM 600MG + VIT D 400 IU TAB PO SCH (09:00)
[2020-07-07] MEDS: CHOLECALCIFEROL 1,000 UNITS 25 MCG TAB PO SCH (09:01)
[2020-07-07] MEDS: PANTOprazole 40 MG TAB PO SCH (09:01)
[2020-07-07] MEDS: SERTRALINE HCL 50 MG TABLET PO SCH (09:01)
[2020-07-07] MEDS: methylPREDNISolone 20 MG in SYRINGE 0 ML IV SCH ×2 (09:06→15:42)
[2020-07-07] MEDS: MESALAMINE 800 MG TABCR PO SCH ×3 (09:08→20:54)
[2020-07-07] MEDS: CHOLESTYRAMINE LIGHT 4 GM PKT PO SCH ×2 (10:35→21:28)
[2020-07-07 11:00] LABS: Hematocrit (blood only) 25.8 % (37-47); Hemoglobin 7.6 g/dL (12.0-16.0); Mean Corpuscular Hemoglobin 23.8 pg (25-34); Mean Corpuscular Hgb Conc 29.5 g/dL (32-36); Mean Corpuscular Volume 80.6 fL (80-100); Mean Platelet Volume 8.7 fL (7.4-10.4); Platelet Count 424 K/uL (130-400); RDW Standard Deviation 53.8 fL (36.4-46.3); White Blood Count 10.47 K/uL (4.8-10.8)
[2020-07-07 11:25] LABS: BUN Creatinine Ratio 13.4 (10-20); Calcium 8.2 mg/dl (8.5-10.1); Creatinine Clr Calc Pharmacy 49.6 ml/min; Est GFR (African American) 66.1; Potassium 3.6 mmol/L (3.5-5.1)
[2020-07-07] MEDS ORDERED: LOPERAMIDE HCL 2 MG CAP PO STA (20:10)
[2020-07-07] MEDS ORDERED: SODIUM CHLORIDE 0.9% 500 ML IV SCH (20:15)
[2020-07-07] MEDS: ATORVASTATIN 40 MG TAB PO SCH (20:54)
[2020-07-07 20:55] LABS: Hematocrit (blood only) 27.6 % (37-47); Hemoglobin 8.4 g/dL (12.0-16.0)
[2020-07-08] MEDS: methylPREDNISolone 20 MG in SYRINGE 0 ML IV SCH ×4 (00:29→23:44)
[2020-07-08] MEDS ORDERED: ONDANSETRON INJ 2 MG/ML 2 ML VIAL IV STA ×2 (00:37→08:24)
[2020-07-08] MEDS ORDERED: ONDANSETRON INJ 2 MG/ML 2 ML VIAL ONE (00:42)
[2020-07-08] MEDS ORDERED: ALUMINUM/MAGNESIUM/SIMETH (MAALOX MAX) 30 ML UDC PO STA (05:03)
[2020-07-08] MEDS: PROMETHAZINE HCL 12.5 MG in SODIUM CHLORIDE 0.9% 50 ML IV PRN (05:13)
[2020-07-08] MEDS: LEVOTHYROXINE SODIUM 75 MCG TABLET PO SCH (05:18)
--- NOTE | 2020-07-08 07:16 | Ultrasound Report ---
BILATERAL LOWER EXTREMITY VENOUS DOPPLER HISTORY: b/l lower ext edema. dvt? . hx of clots COMPARISON STUDY: Doppler venous Doppler 07/21/2019.. FINDINGS: Incomplete compression of the right common femoral vein extending to the distal superficial femoral vein consistent with nonocclusive thrombus. There is occlusive thrombus seen within the visu alized right profundus femoral vein. There is also nonocclusive thrombus within the right popliteal v ein. Calf vessels were not well visualized. There is broken flow at the right posterior tibial vein. Occlusive thrombus seen within the left common femoral vein and nonocclusive thrombus within the left superficial femoral, popliteal, and calf veins. There are superficial vein thrombosis in the left gr eater saphenous vein. IMPRESSION: Above findings likely represent acute on chronic bilateral lower extremity DVT. This has progressed i n the interval. ACT 112: Negative or not required by law. Electronically signed by: Minh Bhat M.D. 07/08/2020 7:14 AM
[2020-07-08] MEDS ORDERED: NORMOSOL-R 1,000 ML IV ONE (07:31)
[2020-07-08] MEDS: ACETAMINOPHEN 500 MG TAB PO PRN (07:49)
[2020-07-08 08:43] LABS: Hematocrit (blood only) 25.9 % (37-47); Hemoglobin 7.7 g/dL (12.0-16.0); Mean Corpuscular Hemoglobin 24.2 pg (25-34); Mean Corpuscular Hgb Conc 29.7 g/dL (32-36); Mean Corpuscular Volume 81.4 fL (80-100); Mean Platelet Volume 8.7 fL (7.4-10.4); Nucleated RBC # (auto) 0.05 K/uL (0-0); Nucleated RBC % (auto) 0.4 %; Platelet Count 331 K/uL (130-400); RDW Coefficient of Variation 19.6 % (11.5-14.5); RDW Standard Deviation 54.4 fL (36.4-46.3); Red Blood Count 3.18 M/uL (4.2-5.4)
[2020-07-08] MEDS: ADVANCED PROBIOTIC 1250 MG CAPSULE PO SCH ×3 (08:53→17:23)
[2020-07-08] MEDS: MESALAMINE 800 MG TABCR PO SCH ×3 (08:54→19:38)
[2020-07-08] MEDS: PANTOprazole 40 MG TAB PO SCH (08:54)
[2020-07-08] MEDS: CALCIUM 600MG + VIT D 400 IU TAB PO SCH (08:54)
[2020-07-08] MEDS: CHOLECALCIFEROL 1,000 UNITS 25 MCG TAB PO SCH (08:55)
[2020-07-08] MEDS: SERTRALINE HCL 50 MG TABLET PO SCH (08:55)
[2020-07-08] MEDS: INSULIN ASPART 100 UNITS/ML 3 ML PEN SC SCH ×4 (08:55→21:12)
[2020-07-08] MEDS: INSULIN GLARGINE SOLOSTAR 100 UNITS/ML 3 ML PEN SC SCH (08:55)
[2020-07-08 09:17] LABS: BUN Creatinine Ratio 13.2 (10-20); C Reactive Protein 1.42 mg/dl (0-0.29); Calcium 8.6 mg/dl (8.5-10.1); Creatinine Clr Calc Pharmacy 33.5 ml/min; Est GFR (African American) 40.6; Potassium 3.8 mmol/L (3.5-5.1)
--- NOTE | 2020-07-08 09:34 | Gastroenterology Progress Note ---
Date of Service July 08, 2020 Assessment & Plan Admission and Anticipated Discharge Date Admission Date: July 01, 2020 UC w/ rectal bleeding, diarrhea plan for flex SIG this AM Attg add: I agree with plan as above. Pt cont to have bloody diarrhea. Cscopy this am. May consider increasing stelara to q 4 weeks, adding immunomodulator, although pt appears pred dependent. Subjective Persistent diarrhea w/ hematochezia Cramping abd pain Doppler last night concerning for acute on chronic bilateral lower extremity DVT Review of Systems Constitutional: no fever and no chills Respiratory: no cough and no dyspnea Cardiovascular: no chest pain and no dyspnea Gastrointestinal: + abdominal pain, + diarrhea/loose stools and + blood in stools Physical Exam Constitutional: no acute distress Respiratory: normal respiratory effort Cardiovascular: Rate/Rhythm: + abnormal rate and + abnormal rhythm Gastrointestinal (Abdomen): Percussion/Palpation: + abdomen tender and abdomen soft Results & Data ([facility]) Vital Signs (Past 12 Hours) Vital Signs Temp Pulse Pulse Resp BP BP Pulse Ox 07/08/20 09:00 112 H 96/56 L 07/08/20 07:23 36.4 C L 111 H 98 H 86/68 L 98 07/08/20 07:07 111 H 07/08/20 04:59 36.4 C L 116 H 18 109/71 98 07/08/20 01:05 106 H 07/07/20 21:59 37.1 C 107 H 16 121/74 98 Laboratory Results 07/08/20 07/08/20 07/08/20 Range/Units 09:05 09:05 08:22 WBC (4.8-10.8) K/uL RBC (4.2-5.4) M/uL Hgb (12.0-16.0) g/dL Hct (37-47) % MCV (80-100) fL MCH (25-34) pg MCHC (32-36) g/dL RDW Std Deviation (36.4-46.3) fL RDW Coeff of Conchis (11.5-14.5) % Plt Count (130-400) K/uL MPV (7.4-10.4) fL Absolute Nucleated RBC (0-0) K/uL Nucleated RBC % (auto) % Sodium 139 (136-145) mmol/L Potassium 3.8 (3.5-5.1) mmol/L Chloride 110 H (98-107) mmol/L Carbon Dioxide 21 (21-32) mmol/L Anion Gap 9.0 (3-11) BUN 20 H (7-18) mg/dl Creatinine 1.54 H D (0.6-1.2) mg/dl Est Cr Clr Drug Dosing 33.5 ml/min Est GFR ( Amer) 40.6 Est GFR (Non-Af Amer) 35.0 BUN/Creatinine Ratio 13.2 (10-20) Glucose 181 H (70-99) mg/dl POC Glucose (70-99) mg/dl Calcium 8.6 (8.5-10.1) mg/dl C-Reactive Protein 1.42 H (0-0.29) mg/dl COVID-19 Eval Order Covid19 [facility] SARS-CoV-2, RNA, NAAT Pending 07/08/20 07/08/20 07/07/20 Range/Units 08:22 07:24 20:33 WBC 13.80 H (4.8-10.8) K/uL RBC 3.18 L (4.2-5.4) M/uL Hgb 7.7 L 8.4 L (12.0-16.0) g/dL Hct 25.9 L 27.6 L (37-47) % MCV 81.4 (80-100) fL MCH 24.2 L (25-34) pg MCHC 29.7 L (32-36) g/dL RDW Std Deviation 54.4 H (36.4-46.3) fL RDW Coeff of Conchis 19.6 H (11.5-14.5) % Plt Count 331 (130-400) K/uL MPV 8.7 (7.4-10.4) fL Absolute Nucleated RBC 0.05 H (0-0) K/uL Nucleated RBC % (auto) 0.4 % Sodium (136-145) mmol/L Potassium (3.5-5.1) mmol/L Chloride (98-107) mmol/L Carbon Dioxide (21-32) mmol/L Anion Gap (3-11) BUN (7-18) mg/dl Creatinine (0.6-1.2) mg/dl Est Cr Clr Drug Dosing ml/min Est GFR ( Amer) Est GFR (Non-Af Amer) BUN/Creatinine Ratio (10-20) Glucose (70-99) mg/dl POC Glucose 224 H (70-99) mg/dl Calcium (8.5-10.1) mg/dl C-Reactive Protein (0-0.29) mg/dl COVID-19 Eval Order SARS-CoV-2, RNA, NAAT 07/07/20 07/07/20 07/07/20 Range/Units 19:53 16:51 11:39 WBC (4.8-10.8) K/uL RBC (4.2-5.4) M/uL Hgb (12.0-16.0) g/dL Hct (37-47) % MCV (80-100) fL MCH (25-34) pg MCHC (32-36) g/dL RDW Std Deviation (36.4-46.3) fL RDW Coeff of Conchis (11.5-14.5) % Plt Count (130-400) K/uL MPV (7.4-10.4) fL Absolute Nucleated RBC (0-0) K/uL Nucleated RBC % (auto) % Sodium (136-145) mmol/L Potassium (3.5-5.1) mmol/L Chloride (98-107) mmol/L Carbon Dioxide (21-32) mmol/L Anion Gap (3-11) BUN (7-18) mg/dl Creatinine (0.6-1.2) mg/dl Est Cr Clr Drug Dosing ml/min Est GFR ( Amer) Est GFR (Non-Af Amer) BUN/Creatinine Ratio (10-20) Glucose (70-99) mg/dl POC Glucose 237 H 201 H 189 H (70-99) mg/dl Calcium (8.5-10.1) mg/dl C-Reactive Protein (0-0.29) mg/dl COVID-19 Eval Order SARS-CoV-2, RNA, NAAT 07/07/20 07/07/20 Range/Units 10:33 10:33 WBC 10.47 (4.8-10.8) K/uL RBC 3.20 L (4.2-5.4) M/uL Hgb 7.6 L (12.0-16.0) g/dL Hct 25.8 L (37-47) % MCV 80.6 (80-100) fL MCH 23.8 L (25-34) pg MCHC 29.5 L (32-36) g/dL RDW Std Deviation 53.8 H (36.4-46.3) fL RDW Coeff of Conchis 19.0 H (11.5-14.5) % Plt Count 424 H (130-400) K/uL MPV 8.7 (7.4-10.4) fL Absolute Nucleated RBC (0-0) K/uL Nucleated RBC % (auto) % Sodium 142 (136-145) mmol/L Potassium 3.6 (3.5-5.1) mmol/L Chloride 113 H (98-107) mmol/L Carbon Dioxide 21 (21-32) mmol/L Anion Gap 8.0 (3-11) BUN 14 (7-18) mg/dl Creatinine 1.03 (0.6-1.2) mg/dl Est Cr Clr Drug Dosing 49.6 ml/min Est GFR ( Amer) 66.1 Est GFR (Non-Af Amer) 57.0 BUN/Creatinine Ratio 13.4 (10-20) Glucose 172 H (70-99) mg/dl POC Glucose (70-99) mg/dl Calcium 8.2 L (8.5-10.1) mg/dl C-Reactive Protein (0-0.29) mg/dl COVID-19 Eval Order SARS-CoV-2, RNA, NAAT
--- NOTE | 2020-07-08 10:53 | Hospitalist Progress Note ---
Date of Service July 08, 2020 Assessment & Plan (1) Acute GI bleeding: (2) Acute on chronic blood loss anemia: (3) Crohn's colitis: Recurrent IBD flare up. C-diff ruled out on sample. She is positive for the gene but negative for toxin Continues to have bloody BM Continue IV Solu-Medrol 20 g every 8h GI plans to do flexible sigmoidoscopy today Cont home mesalamine, Questran and stelara (next injection due in Aug) Still having bloody bowel movement Hb has been stable in the 7s. Continue to hold eliquis Monitor Hb and transfuse prn to keep Hb >7 Anemia work-up showed iron deficiency Got 2 doses of iv iron infusion (4) Acute deep vein thrombosis (DVT) of both lower extremities: (5) 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: Acute on chronic bilateral DVT Patient was on Eliquis s/p IVC filter. Eliquis on hold currently due to current GI bleeding. Will need anticoagulation once bleeding is controlled We discussed the dilemma off anticoagulation in the setting of GI bleed and acute on chronic DVTs. Patient understands. Okay with holding anticoagulation for now (6) DMII (diabetes mellitus, type 2): Uncontrolled at baseline. Had been uncontrolled inpatient secondary to increased steroid administration. Had some hypoglycemic episodes. Likely due to poor oral intake Continue reduced dose of Lantus and monitor blood glucose Continue to make adjustments as needed (7) KOKI (acute kidney injury): Creatinine 1.54 today from 1.03 yesterday KOKI likely in the setting of continuing GI losses Was also hypotensive this AM. Gave 1L bolus with resolution Will monitor fluid intake and may continue IVF if inadequate (8) DVT prophylaxis: SCDs (chemoprophy contraindicated in setting of hematochezia) Full Code Dispo-cont hospitalization pending improvement in pain and hematochezia. To home when medically stable Admission and Anticipated Discharge Date Admission Date: July 01, 2020 Subjective Patient seen and examined. Continues to report bloody diarrhea, abdominal pain and nausea Denies dizziness, dyspnea on exertion, shortness of breath, palpitations Ultrasound done yesterday for leg edema acute on chronic bilateral lower extremity DVT Review of Systems Review of Systems: All systems reviewed & are unremarkable except as noted in Subjective Physical Exam Constitutional: well developed, well nourished and + well hydrated; no acute distress Eyes: PERRL and EOM intact bilaterally Pallor ENMT: external ear and nose normal, oropharynx normal Respiratory: normal respiratory effort, lungs clear to auscultation Cardiovascular: Rate/Rhythm: regular rate and regular rhythm Tachycardic, +2 pedal edema Gastrointestinal (Abdomen): normal bowel sounds, soft, nontender, no hepatosplenomegaly Musculoskeletal: no cyanosis or clubbing, extremities motor strength 5/5 +2 pedal edema Neurologic: PERRL, EOMI, accommodation nl, no face palsy, no dysarthria Psychiatric: A+Ox3, euthymic affect Results & Data Results & Data ([facility]) Vital Signs (Past 12 Hours) Vital Signs Temp Pulse Pulse Resp BP BP Pulse Ox 07/08/20 10:02 37.2 C 112 H 18 118/75 98 07/08/20 09:00 112 H 96/56 L 07/08/20 07:23 36.4 C L 111 H 98 H 86/68 L 98 07/08/20 07:07 111 H 07/08/20 04:59 36.4 C L 116 H 18 109/71 98 07/08/20 01:05 106 H Laboratory Results Laboratory Results - last 24 hr 07/07/20 07/07/20 07/07/20 10:33 10:33 11:39 WBC 10.47 RBC 3.20 L Hgb 7.6 L Hct 25.8 L MCV 80.6 MCH 23.8 L MCHC 29.5 L RDW Std Deviation 53.8 H RDW Coeff of Conchis 19.0 H Plt Count 424 H MPV 8.7 Absolute Nucleated RBC Nucleated RBC % (auto) Sodium 142 Potassium 3.6 Chloride 113 H Carbon Dioxide 21 Anion Gap 8.0 BUN 14 Creatinine 1.03 Est Cr Clr Drug Dosing 49.6 Est GFR ( Amer) 66.1 Est GFR (Non-Af Amer) 57.0 BUN/Creatinine Ratio 13.4 Glucose 172 H POC Glucose 189 H Calcium 8.2 L C-Reactive Protein COVID-19 Eval Order SARS-CoV-2, RNA, NAAT 07/07/20 07/07/20 07/07/20 16:51 19:53 20:33 WBC RBC Hgb 8.4 L Hct 27.6 L MCV MCH MCHC RDW Std Deviation RDW Coeff of Conchis Plt Count MPV Absolute Nucleated RBC Nucleated RBC % (auto) Sodium Potassium Chloride Carbon Dioxide Anion Gap BUN Creatinine Est Cr Clr Drug Dosing Est GFR ( Amer) Est GFR (Non-Af Amer) BUN/Creatinine Ratio Glucose POC Glucose 201 H 237 H Calcium C-Reactive Protein COVID-19 Eval Order SARS-CoV-2, RNA, NAAT 07/08/20 07/08/20 07/08/20 07:24 08:22 08:22 WBC 13.80 H RBC 3.18 L Hgb 7.7 L Hct 25.9 L MCV 81.4 MCH 24.2 L MCHC 29.7 L RDW Std Deviation 54.4 H RDW Coeff of Conchis 19.6 H Plt Count 331 MPV 8.7 Absolute Nucleated RBC 0.05 H Nucleated RBC % (auto) 0.4 Sodium 139 Potassium 3.8 Chloride 110 H Carbon Dioxide 21 Anion Gap 9.0 BUN 20 H Creatinine 1.54 H D Est Cr Clr Drug Dosing 33.5 Est GFR ( Amer) 40.6 Est GFR (Non-Af Amer) 35.0 BUN/Creatinine Ratio 13.2 Glucose 181 H POC Glucose 224 H Calcium 8.6 C-Reactive Protein 1.42 H COVID-19 Eval Order SARS-CoV-2, RNA, NAAT 07/08/20 07/08/20 09:05 09:05 WBC RBC Hgb Hct MCV MCH MCHC RDW Std Deviation RDW Coeff of Conchis Plt Count MPV Absolute Nucleated RBC Nucleated RBC % (auto) Sodium Potassium Chloride Carbon Dioxide Anion Gap BUN Creatinine Est Cr Clr Drug Dosing Est GFR ( Amer) Est GFR (Non-Af Amer) BUN/Creatinine Ratio Glucose POC Glucose Calcium C-Reactive Protein COVID-19 Eval Order [facility] SARS-CoV-2, RNA, NAAT NEGATIVE (1) Crohn's colitis Digestive disease complication type: with rectal bleeding Qualified Code(s): K50.111 - Crohn's disease of large intestine with rectal bleeding
--- NOTE | 2020-07-08 11:22 | GI REPORT ---
Patient Name: Daniela Carter Procedure Date: 07/08/2020 10:20 AM Date of : 1955 Admit Type: Inpatient Age: 64 Gender: Female Attending MD: Pili Mcintosh MD Procedure: Colonoscopy Providers: Pili Mcintosh MD Referring MD: Sayra Roldan Md Indications: Follow-up of ulcerative colitis Medicines: None Complications: No immediate complications. Estimated Blood Loss: Estimated blood loss: none. Procedure: Pre-Anesthesia Assessment: - ASA Grade Assessment: III - A patient with severe systemic disease. After I obtained informed consent, the scope was passed under direct vision. Throughout the procedure, the patient's blood pressure, pulse, and oxygen saturations were monitored continuously. The Colonoscope was introduced through the anus and advanced to the terminal ileum. After I obtained informed consent, the scope was passed under direct vision. Throughout the procedure, the patient's blood pressure, pulse, and oxygen saturations were monitored continuously.The colonoscopy was performed without difficulty. The patient tolerated the procedure well. The quality of the bowel preparation was good. Findings: Hemorrhoids were found on perianal exam. There was evidence of moderate to severe colitis (Liriano 2-3) throughout the entire colon. The mucosa of the entire colon was edematous and red, with severe granularity. There was luminal narrowing due to edema in the descending colon. There were a few deep ulcers in the rectum and sigmoid. There was no spontaneous bleeding. Multiple pseudopolyps were seen in the left colon. Biopsies taken from throughout the colon. The ileum was normal. Impression: - Hemorrhoids found on perianal exam. - Moderate to severe temple-colitis, Liriano 2-3. Recommendation: - Discharge patient to floor. Follow up pathology Diet as tolerated. Cont IV steroids. Change Stelara to q 4 weeks, consider additional dose now. Check levels. Continue anti-coagulation. Follow CRP, albumin. Pili Mcintosh M.D. Pili Mcintosh MD 07/08/2020 11:21:59 AM This report has been signed electronically. Note Initiated On: 07/08/2020 10:20 AM Number of Addenda: 0 I attest to the content of the Intraoperative Record and orders documented therein, exceptions below {[id number]}
[2020-07-08] MEDS: CHOLESTYRAMINE LIGHT 4 GM PKT PO SCH ×2 (12:41→19:38)
[2020-07-08 13:08] LABS: Cdiff Antigen Positive
[2020-07-08 13:09] LABS: Cdiff Toxin A+B Negative Cdiff Toxin (Negative)
[2020-07-08] MEDS: traMADol HCL 50 MG TABLET PO PRN (19:37)
[2020-07-08] MEDS: ATORVASTATIN 40 MG TAB PO SCH (19:38)
[2020-07-09] MEDS: LEVOTHYROXINE SODIUM 75 MCG TABLET PO SCH (04:50)
[2020-07-09 07:28] LABS: Hematocrit (blood only) 26.1 % (37-47); Hemoglobin 7.7 g/dL (12.0-16.0); Mean Corpuscular Hemoglobin 24.1 pg (25-34); Mean Corpuscular Hgb Conc 29.5 g/dL (32-36); Mean Corpuscular Volume 81.8 fL (80-100); Nucleated RBC # (auto) 0.08 K/uL (0-0); Nucleated RBC % (auto) 0.6 %; Platelet Count 306 K/uL (130-400); RDW Coefficient of Variation 19.8 % (11.5-14.5); RDW Standard Deviation 56.1 fL (36.4-46.3); Red Blood Count 3.19 M/uL (4.2-5.4); White Blood Count 12.83 K/uL (4.8-10.8)
[2020-07-09 08:03] LABS: BUN Creatinine Ratio 16.1 (10-20); Calcium 8.6 mg/dl (8.5-10.1); Creatinine Clr Calc Pharmacy 25.8 ml/min; Est GFR (African American) 29.4; Est GFR (Non-African American) 25.4; Magnesium 2.2 mg/dl (1.8-2.4); Potassium 4.5 mmol/L (3.5-5.1)
--- NOTE | 2020-07-09 08:53 | Gastroenterology Progress Note ---
Date of Service July 09, 2020 Assessment & Plan (1) Colitis: 64 year old female with IBD admitted w/ suspected IBD flare, had flex sig yesterday w/ moderate to severe temple-colitis, Liriano 2-3. Follow up pathology Diet as tolerated. Cont IV steroids. Change Stelara to q 4 weeks, consider additional dose now. Discussed with [facility] nursing, new auth started Check levels before due dose. Continue anti-coagulation. Follow CRP, albumin. Attg add: I interviwed and examined pt, reviewed chart and labs. Pt unchanged - continues to have frequent diarrhea. Her bleeding is improved, and has no abd pain. She is flo PO. Received Stelara today, on day 3-4 of IV steroids. RECS: Transition to oral steroids tomorrow, can be d/c'd home with close outpt f/u with GI and colorectal surgery on oral steroids. Admission and Anticipated Discharge Date Admission Date: July 01, 2020 Subjective Feeling well this AM No pain Persistent loose stools, bloody. 8-10 times daily. Notes her lower extremity edema which had acutely worsened last evening is improving. Sister brought her extra dose of Stelara. Review of Systems Constitutional: no fever and no chills Respiratory: no cough and no chest congestion Cardiovascular: no chest pain and no dyspnea Gastrointestinal: + diarrhea/loose stools and + blood in stools; no abdominal pain, no nausea, no vomiting, no coffee ground emesis and no change in bowel habits Physical Exam Constitutional: well developed and well nourished; no acute distress and not ill appearing Neck: trachea midline Respiratory: normal respiratory effort Cardiovascular: Extremities: + pedal edema and + edema Gastrointestinal (Abdomen): Percussion/Palpation: + abdomen tender and abdomen soft Results & Data ([facility]) Vital Signs (Past 12 Hours) Vital Signs Temp Pulse Pulse Resp BP BP Pulse Ox 07/09/20 07:28 90 07/09/20 07:00 36.4 C L 94 H 18 102/67 94 07/09/20 05:00 36.9 C 97 H 18 131/77 96 07/08/20 23:06 105 H 07/08/20 22:00 36.9 C 105 H 20 126/82 96
[2020-07-09] MEDS ORDERED: Heparin IV Standard *NO* Bolus IV SCH (09:00)
[2020-07-09] MEDS: INSULIN ASPART 100 UNITS/ML 3 ML PEN SC SCH ×4 (09:55→21:26)
[2020-07-09] MEDS: INSULIN GLARGINE SOLOSTAR 100 UNITS/ML 3 ML PEN SC SCH (09:56)
[2020-07-09] MEDS: CALCIUM 600MG + VIT D 400 IU TAB PO SCH (09:56)
[2020-07-09] MEDS: methylPREDNISolone 20 MG in SYRINGE 0 ML IV SCH ×2 (09:56→15:48)
[2020-07-09] MEDS: ADVANCED PROBIOTIC 1250 MG CAPSULE PO SCH ×3 (09:56→16:19)
[2020-07-09] MEDS: SERTRALINE HCL 50 MG TABLET PO SCH (09:57)
[2020-07-09] MEDS: MESALAMINE 800 MG TABCR PO SCH ×3 (09:57→20:07)
[2020-07-09] MEDS: CHOLECALCIFEROL 1,000 UNITS 25 MCG TAB PO SCH (09:57)
[2020-07-09] MEDS: PANTOprazole 40 MG TAB PO SCH (09:57)
--- NOTE | 2020-07-09 11:05 | Hospitalist Progress Note ---
Date of Service July 09, 2020 Assessment & Plan (1) Acute GI bleeding: (2) Acute on chronic blood loss anemia: (3) Crohn's colitis: Recurrent IBD flare up. C-diff ruled out on sample. She is positive for the gene but negative for toxin Continues to have bloody BM Continue IV Solu-Medrol 20 g every 8h Flex sig and colonoscopy showing hemorrhoids and moderate to severe pancolitis Cont home mesalamine, Questran Start Stelara q. 4-week Per GI recommendation Still having bloody bowel movement However, Hb has been stable in the 7s. Was on eliquis at home which has been held since admission due to GI bleed Discussed with GI We will start heparin drip especially in view of acute on chronic bilateral DVT and monitor bleeding and hemoglobin Monitor Hb and transfuse prn to keep Hb >7 Anemia work-up showed iron deficiency Got 2 doses of iv iron infusion (4) Acute deep vein thrombosis (DVT) of both lower extremities: (5) 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: Acute on chronic bilateral DVT Patient was on Eliquis s/p IVC filter. Eliquis on hold currently due to current GI bleeding. Start heparin drip as discussed above and monitor (6) DMII (diabetes mellitus, type 2): Uncontrolled at baseline. Had been uncontrolled inpatient secondary to increased steroid administration. Had some hypoglycemic episodes. Likely due to poor oral intake Continue reduced dose of Lantus and monitor blood glucose Continue to make adjustments as needed (7) KOKI (acute kidney injury): Creatinine 2 KOKI likely in the setting of continuing GI losses Continue IV fluids Full Code Dispo-cont hospitalization pending improvement in pain and hematochezia. To home when medically stable Admission and Anticipated Discharge Date Admission Date: July 01, 2020 Subjective Patient seen and examined Still report bloody diarrhea. No nausea this morning Had flex sigmoidoscopy and colonoscopy yesterday which showed hemorrhoids, moderate to severe pancolitis. Physical Exam Constitutional: well developed, well nourished and + well hydrated; no acute distress Eyes: PERRL, conjunctivae normal, anicteric sclerae PERRL and EOM intact bilaterally ENMT: external ear and nose normal, oropharynx normal Respiratory: normal respiratory effort, lungs clear to auscultation Cardiovascular: Rate/Rhythm: regular rate and regular rhythm S1-S2 Gastrointestinal (Abdomen): normal bowel sounds, soft, nontender, no hepatosplenomegaly Musculoskeletal: no cyanosis or clubbing, extremities motor strength 5/5 Bilateral pitting leg edema 2+ Neurologic: PERRL, EOMI, accommodation nl, no face palsy, no dysarthria Psychiatric: A+Ox3, euthymic affect Results & Data Results & Data ([facility]) Vital Signs (Past 12 Hours) Vital Signs Temp Pulse Pulse Resp BP BP Pulse Ox 07/09/20 07:28 90 07/09/20 07:00 36.4 C L 94 H 18 102/67 94 07/09/20 05:00 36.9 C 97 H 18 131/77 96 07/08/20 23:06 105 H Laboratory Results Laboratory Results - last 24 hr 07/08/20 07/08/20 07/08/20 10:35 11:47 16:33 WBC RBC Hgb Hct MCV MCH MCHC RDW Std Deviation RDW Coeff of Conchis Plt Count MPV Absolute Nucleated RBC Nucleated RBC % (auto) Sodium Potassium Chloride Carbon Dioxide Anion Gap BUN Creatinine Est Cr Clr Drug Dosing Est GFR ( Amer) Est GFR (Non-Af Amer) BUN/Creatinine Ratio Glucose POC Glucose 187 H 242 H Calcium Phosphorus Magnesium Stl C. diff Tox B Gene Positive Cdiff Gene H Stl C.difficile Tox A&B Negative Cdiff Toxin 07/08/20 07/09/20 07/09/20 20:08 06:35 06:35 WBC 12.83 H RBC 3.19 L Hgb 7.7 L Hct 26.1 L MCV 81.8 MCH 24.1 L MCHC 29.5 L RDW Std Deviation 56.1 H RDW Coeff of Conchis 19.8 H Plt Count 306 MPV 9.0 Absolute Nucleated RBC 0.08 H Nucleated RBC % (auto) 0.6 Sodium 139 Potassium 4.5 D Chloride 110 H Carbon Dioxide 22 Anion Gap 7.0 BUN 32 H D Creatinine 2.01 H D Est Cr Clr Drug Dosing 25.8 Est GFR ( Amer) 29.4 Est GFR (Non-Af Amer) 25.4 BUN/Creatinine Ratio 16.1 Glucose 165 H POC Glucose 216 H Calcium 8.6 Phosphorus 4.0 Magnesium 2.2 Stl C. diff Tox B Gene Stl C.difficile Tox A&B 07/09/20 07:33 WBC RBC Hgb Hct MCV MCH MCHC RDW Std Deviation RDW Coeff of Conchis Plt Count MPV Absolute Nucleated RBC Nucleated RBC % (auto) Sodium Potassium Chloride Carbon Dioxide Anion Gap BUN Creatinine Est Cr Clr Drug Dosing Est GFR ( Amer) Est GFR (Non-Af Amer) BUN/Creatinine Ratio Glucose POC Glucose 173 H Calcium Phosphorus Magnesium Stl C. diff Tox B Gene Stl C.difficile Tox A&B (1) Crohn's colitis Digestive disease complication type: with rectal bleeding Qualified Code(s): K50.111 - Crohn's disease of large intestine with rectal bleeding
[2020-07-09] MEDS: HEPARIN SODIUM/DEXTROSE 25,000 UNITS/500 ML BAG IV SCH (11:24)
[2020-07-09] MEDS: CHOLESTYRAMINE LIGHT 4 GM PKT PO SCH ×2 (11:24→21:39)
[2020-07-09 11:47] LABS: Partial Thromboplastin Ratio 0.8; Partial Thromboplastin Time 21.1 Seconds (21.0-31.0); Prothrombin Time 10.6 Seconds (9.0-12.0)
[2020-07-09 11:53] LABS: ALC (manual) 0.71 K/uL (1.2-3.4); ANC (manual) 12.85 K/uL (1.4-6.5); Anisocytosis Present; Hematocrit (blood only) 26.6 % (37-47); Hemoglobin 7.7 g/dL (12.0-16.0); Lymphocytes # (manual) 0.71 K/uL (1.2-3.4); Lymphocytes % (manual) 5.2 %; Mean Corpuscular Hemoglobin 23.8 pg (25-34); Mean Corpuscular Hgb Conc 28.9 g/dL (32-36); Mean Corpuscular Volume 82.1 fL (80-100); Mean Platelet Volume 8.6 fL (7.4-10.4); Myelocytes # (manual) 0.12 K/uL (0-0); Myelocytes % (manual) 0.9 %; Neutrophils # (manual) 12.85 K/uL (1.4-6.5); Neutrophils % (manual) 93.9 %; Nucleated RBC # (auto) 0.06 K/uL (0-0); Nucleated RBC % (auto) 0.4 %; Ovalocytes 1+; Platelet Count 289 K/uL (130-400); Polychromasia 1+; RDW Coefficient of Variation 19.9 % (11.5-14.5); RDW Standard Deviation 55.3 fL (36.4-46.3); Red Blood Count 3.24 M/uL (4.2-5.4); Tear Drop Cells 1+; White Blood Count 13.68 K/uL (4.8-10.8)
[2020-07-09] MEDS: NORMOSOL-R 1,000 ML IV SCH ×2 (13:31→22:27)
[2020-07-09 17:57] LABS: Partial Thromboplastin Ratio 1.5; Partial Thromboplastin Time 41.6 Seconds (21.0-31.0)
[2020-07-09] MEDS: ATORVASTATIN 40 MG TAB PO SCH (20:07)
[2020-07-09 23:41] LABS: Partial Thromboplastin Ratio 2.1; Partial Thromboplastin Time 57.4 Seconds (21.0-31.0)
[2020-07-10] MEDS: methylPREDNISolone 20 MG in SYRINGE 0 ML IV SCH (00:33)
[2020-07-10] MEDS: LEVOTHYROXINE SODIUM 75 MCG TABLET PO SCH (05:27)
[2020-07-10 07:11] LABS: Hemoglobin 7.3 g/dL (12.0-16.0); Mean Corpuscular Hemoglobin 24.7 pg (25-34); Mean Corpuscular Hgb Conc 30.4 g/dL (32-36); Mean Corpuscular Volume 81.4 fL (80-100); Mean Platelet Volume 8.6 fL (7.4-10.4); Nucleated RBC # (auto) 0.06 K/uL (0-0); Nucleated RBC % (auto) 0.6 %; Platelet Count 253 K/uL (130-400); RDW Coefficient of Variation 19.7 % (11.5-14.5); RDW Standard Deviation 54.4 fL (36.4-46.3); Red Blood Count 2.95 M/uL (4.2-5.4); White Blood Count 11.47 K/uL (4.8-10.8)
[2020-07-10 07:29] LABS: Partial Thromboplastin Time 56.8 Seconds (21.0-31.0)
[2020-07-10 07:42] LABS: BUN Creatinine Ratio 21.1 (10-20); C Reactive Protein 0.32 mg/dl (0-0.29); Calcium 8.6 mg/dl (8.5-10.1); Creatinine Clr Calc Pharmacy 37.1 ml/min; Est GFR (African American) 45.6; Est GFR (Non-African American) 39.3; Potassium 3.8 mmol/L (3.5-5.1)
[2020-07-10] MEDS: HEPARIN SODIUM/DEXTROSE 25,000 UNITS/500 ML BAG IV SCH (09:04)
[2020-07-10] MEDS: INSULIN GLARGINE SOLOSTAR 100 UNITS/ML 3 ML PEN SC SCH (09:05)
[2020-07-10] MEDS: INSULIN ASPART 100 UNITS/ML 3 ML PEN SC SCH ×4 (09:05→20:55)
[2020-07-10] MEDS: NORMOSOL-R 1,000 ML IV SCH (09:07)
[2020-07-10] MEDS: ADVANCED PROBIOTIC 1250 MG CAPSULE PO SCH ×3 (09:08→17:27)
[2020-07-10] MEDS: SERTRALINE HCL 50 MG TABLET PO SCH (09:09)
[2020-07-10] MEDS: MESALAMINE 800 MG TABCR PO SCH ×3 (09:09→21:03)
[2020-07-10] MEDS: CALCIUM 600MG + VIT D 400 IU TAB PO SCH (09:09)
[2020-07-10] MEDS: CHOLECALCIFEROL 1,000 UNITS 25 MCG TAB PO SCH (09:09)
[2020-07-10] MEDS: PANTOprazole 40 MG TAB PO SCH (09:09)
[2020-07-10] MEDS: predniSONE 20 MG TAB PO SCH (09:10)
[2020-07-10] MEDS: CHOLESTYRAMINE LIGHT 4 GM PKT PO SCH ×2 (10:21→21:39)
[2020-07-10] MEDS ORDERED: SODIUM CHLORIDE 0.9% 250 ML IV PRN (13:03)
--- NOTE | 2020-07-10 13:10 | Hospitalist Progress Note ---
Date of Service July 10, 2020 Assessment & Plan (1) Acute GI bleeding: Persistent hematochezia in setting of IBD flare. On steroids, Stelara, mesalamine and Questran. Appreciate GI input on how to quell the bleeding. For now, will give blood for symptomatic anemia and tachycardia. Cont supportive care measures. (2) Acute on chronic blood loss anemia: acute on chronic iron deficiency anemia in the setting of acute GI blood loss. Symptomatic anemia present and she continues to actively bleed, made worse by the anticoagulation. Give 2 units PRBCs at this time. Cont heparin drip overnight and monitor for response. Will need to decide about continued anticoagulation within the next 1-2 days depending on clinical progress. IVC filter is in place. (3) Crohn's colitis: Recurrent IBD flare up. C-diff ruled out on sample. She is positive for the gene but negative for toxin GI following and has her back on prednisone Colonoscopy this admission revealing hemorrhoids and moderate to severe pancolitis Cont home mesalamine, Questran Start Stelara q. 4-week Per GI recommendation, given 07/09 Follow-up with colorectal surgeon as outpatient to discuss possible colectomy. (4) Acute deep vein thrombosis (DVT) of both lower extremities: Was take off Eliquis initially in the setting of acute bleeding and anemia. She developed bilateral leg swelling and was found to have acute on chronic DVTs. She was placed back on heparin as this is easy to turn off, is reversible, and acts as an anti-inflammatory agent in this setting. She has an IVC filter in place. She is very uncomfortable from post-thrombotic syndrome and swelling. Cont supportive care. DC IVF and consider restarting Lasix to help with sweliing +/- TEDs as tolerated. (5) DMII (diabetes mellitus, type 2): Currently around goal, cont basal bolus insulin while hospitalized. (6) Acute renal failure: poss 2/2 hypovolemia in setting of ongoing GI blood loss and anemia. Improved with some IVF but ultimately she needs blood. Giving 2 units today. Monitor for continued improvement. Minimize Lasix use, although patient is requesting some for discomfort from swelling in her legs. (7) DVT prophylaxis: TEDs, ambulation Full code Dispo-uncertain at this time. Julisa Montgomery DO [facility] [address] [facility] Hospitalist Admission and Anticipated Discharge Date Admission Date: July 01, 2020 Subjective cc: colitis flare -abdominal pain present 3-/, worse with BMs -she has significant swelling in her legs bilaterally -she reports SOB with exertion -tolerating PO -reports bloody pudding consistency hematochezia 10x daily stool frequency Review of Systems Review of Systems: All systems reviewed & are unremarkable except as noted in Subjective Physical Exam Physical Exam: CONSTITUTIONAL: WNWD, vitals as above, generally well- appearing EYES: normal conjunctivae, no scleral icterus ENT: external ear and nose normal, oropharynx clear, MMM RESPIRATORY: clear to auscultation bilaterally, no crackles, rales or wheezes, normal respiratory effort CARDIOVASCULAR: regular rate and rhythm, S1 and 2 heard without murmurs, gallops or rubs, no JVD, large swollen edematous legs bilaterally GASTROINTESTINAL: normal bowel sounds, soft, TTP generally, especially in bilateral lower quadrants. MUSCULOSKELETAL: strength 5/5 throughout, head is normocephalic and atraumatic SKIN: warm and dry NEUROLOGIC: CN 2-12 grossly intact, no sensory deficit, normal cognition, normal speech, no tremor. No gross focal deficits. PSYCHIATRIC: alert cooperative and oriented to person, place and time. Results & Data Results & Data ([facility]) Vital Signs (Past 12 Hours) Vital Signs Temp Pulse Pulse Resp BP BP Pulse Ox 07/10/20 11:51 37.1 C 107 H 18 97/62 L 99 07/10/20 07:34 36.7 C 80 18 106/63 100 07/10/20 07:30 75 07/10/20 02:38 36.6 C 83 20 118/72 98 07/10/20 01:40 82 Laboratory Results Short CBC 07/10/20 Range/Units 06:44 WBC 11.47 H (4.8-10.8) K/uL Hgb 7.3 L (12.0-16.0) g/dL Hct 24.0 L (37-47) % Plt Count 253 (130-400) K/uL BMP 07/10/20 06:44 Sodium 138 Potassium 3.8 D Chloride 109 H Carbon Dioxide 23 BUN 30 H Creatinine 1.40 H D Glucose 80 Calcium 8.6 Medications Administered Current Inpatient Medications Acetaminophen (Acetaminophen 500 Mg Tab) 1,000 mg PO Q8H PRN PRN Reason: fever, pain Stop: 07/31/20 08:53 Last Admin: 07/08/20 07:49 Dose: 1,000 mg Documented by: Acetaminophen (Acetaminophen 325 Mg Tab) 650 mg PO PRE-TREAT ONE Stop: 07/10/20 13:16 Atorvastatin Calcium (Atorvastatin 40 Mg Tab) 40 mg PO HS [facility], [facility]1983 Stop: 07/31/20 20:59 Last Admin: 07/09/20 20:07 Dose: 40 mg Documented by: Cholestyramine Resin (Cholestyramine Light 4 Gm Pkt) 4 gm PO BID@1000,2200 [facility], [facility]1983 Stop: 07/31/20 21:59 Last Admin: 07/10/20 10:21 Dose: 4 gm Documented by: Dextrose (Dextrose 50% 50 Ml Syringe) 25 - 50 ml IV UD PRN; Protocol PRN Reason: Hypoglycemia Protocol Stop: 07/31/20 08:41 Diphenhydramine HCl (Diphenhydramine Capsule 25 Mg Cap) 25 mg PO PRE-TREAT ONE Stop: 07/10/20 13:16 Glucagon (Glucagon For Inj 1 Mg Vial) 1 mg SQ UD PRN; Protocol PRN Reason: Hypoglycemia Protocol Stop: 07/31/20 08:41 Glucose (Glucose 10 Tabs/Tube) 4 - 8 tabs PO UD PRN; Protocol PRN Reason: Hypoglycemia Protocol Stop: 07/31/20 08:41 Glucose (Glucose 40% Gel 15 Gm Tube) 15 - 30 gm PO UD PRN; Protocol PRN Reason: Hypoglycemia Protocol Stop: 07/31/20 08:41 Promethazine HCl 12.5 mg/ (Sodium Chloride) 50.5 mls @ 202 mls/hr IV Q6H PRN PRN Reason: Nausea And Vomiting Stop: 07/31/20 08:41 Last Infusion: 07/08/20 05:41 Dose: Infused Documented by: Heparin Sodium/Dextrose (Heparin Sodium/Dextrose) 25,000 units in 500 mls @ 22 mls/hr IV .[id number] [facility], [facility]; Protocol Stop: 08/08/20 08:59 Last Admin: 07/10/20 09:04 Dose: 1,100 units/hr, 22 mls/hr Documented by: Sodium Chloride (Nss) 250 mls @ 15 mls/hr IV .[id number] PRN PRN Reason: For Transfusion Stop: 07/10/20 23:04 Insulin Aspart (Insulin Aspart 100 Units/Ml 3 Ml Pen) 0 units SC ACHS [facility], [facility]1983 Stop: 07/31/20 08:59 Last Admin: 07/10/20 12:40 Dose: 7 units Documented by: Insulin Glargine (Insulin Glargine Solostar 100 Units/Ml 3 Ml Pen) 10 units SC DAILY RACHEL Stop: 08/08/20 08:59 Last Admin: 07/10/20 09:05 Dose: 10 units Documented by: Lactobacillus Acidoph/Casei/Rhamnos (Advanced Probiotic 1250 Mg Capsule) 2 cap PO TIDM RACHEL Stop: 07/31/20 11:59 Last Admin: 07/10/20 12:59 Dose: 2 cap Documented by: Levothyroxine Sodium (Levothyroxine Sodium 75 Mcg Tablet) 75 mcg PO DAILYBB [facility], [facility]1983 Stop: 07/31/20 08:59 Last Admin: 07/10/20 05:27 Dose: 75 mcg Documented by: Mesalamine (Mesalamine 800 Mg Tabcr) 800 mg PO TID [facility], [facility]1983 Stop: 07/31/20 08:59 Last Admin: 07/10/20 13:00 Dose: 800 mg Documented by: Miscellaneous (Carbohydrates For Hypoglycemia ) 15 - 30 gm PO UD PRN PRN Reason: Hypoglycemia Protocol Stop: 07/31/20 08:41 Last Admin: 07/06/20 08:05 Dose: 15 gm Documented by: Miscellaneous (*Stelara*Order Awaiting Action) 1 ea N/A QS [facility], [facility]1983 Stop: 08/08/20 15:59 Last Admin: 07/10/20 07:39 Dose: Not Given Documented by: Multivitamins/Minerals (Calcium 600mg + Vit D 400 Iu Tab) 1 tab PO QAM [facility], [facility]1983 Stop: 07/31/20 08:59 Last Admin: 07/10/20 09:09 Dose: 1 tab Documented by: Pantoprazole Sodium (Pantoprazole 40 Mg Tab) 40 mg PO QAM [facility], [facility]1983 Stop: 07/31/20 08:59 Last Admin: 07/10/20 09:09 Dose: 40 mg Documented by: Prednisone (Prednisone 20 Mg Tab) 40 mg PO DAILY [facility] Stop: 08/09/20 08:59 Last Admin: 07/10/20 09:10 Dose: 40 mg Documented by: Sertraline HCl (Sertraline Hcl 50 Mg Tablet) 50 mg PO QAM [facility], [facility]1983 Stop: 07/31/20 08:59 Last Admin: 07/10/20 09:09 Dose: 50 mg Documented by: Tramadol HCl (Tramadol Hcl 50 Mg Tablet) 25 - 50 mg PO Q4H PRN PRN Reason: Pain Stop: 07/31/20 08:41 Last Admin: 07/08/20 19:37 Dose: 50 mg Documented by: Trazodone HCl (Trazodone Hcl 50 Mg Tab) 50 mg PO HS PRN PRN Reason: Sleep Stop: 07/31/20 08:41 Vitamin D (Cholecalciferol 1,000 Units 25 Mcg Tab) 1,000 units PO QAM RACHEL Stop: 07/31/20 08:59 Last Admin: 07/10/20 09:09 Dose: 1,000 units Documented by: (1) Crohn's colitis Digestive disease complication type: with rectal bleeding Qualified Code(s): K50.111 - Crohn's disease of large intestine with rectal bleeding
[2020-07-10] MEDS ORDERED: ACETAMINOPHEN 325 MG TAB PO ONE (13:15)
[2020-07-10] MEDS ORDERED: diphenhydrAMINE Capsule 25 MG CAP PO ONE (13:15)
[2020-07-10] MEDS: traMADol HCL 50 MG TABLET PO PRN (14:38)
[2020-07-10] MEDS ORDERED: FUROSEMIDE 20 MG in SYRINGE 0 ML IV SCH (15:30)
[2020-07-10] MEDS: ATORVASTATIN 40 MG TAB PO SCH (20:50)
[2020-07-11] MEDS: ACETAMINOPHEN 500 MG TAB PO PRN (04:33)
[2020-07-11] MEDS: LEVOTHYROXINE SODIUM 75 MCG TABLET PO SCH (04:34)
[2020-07-11 07:00] LABS: Hematocrit (blood only) 29.8 % (37-47); Hemoglobin 9.5 g/dL (12.0-16.0); Mean Corpuscular Hemoglobin 26.2 pg (25-34); Mean Corpuscular Hgb Conc 31.9 g/dL (32-36); Mean Corpuscular Volume 82.1 fL (80-100); Mean Platelet Volume 9.5 fL (7.4-10.4); Nucleated RBC # (auto) 0.05 K/uL (0-0); Nucleated RBC % (auto) 0.5 %; Platelet Count 209 K/uL (130-400); RDW Coefficient of Variation 18.9 % (11.5-14.5); RDW Standard Deviation 53.2 fL (36.4-46.3); Red Blood Count 3.63 M/uL (4.2-5.4); White Blood Count 11.28 K/uL (4.8-10.8)
[2020-07-11 07:20] LABS: Partial Thromboplastin Ratio 2.5
[2020-07-11 07:27] LABS: Basophils # (auto) 0.03 K/uL (0-0.2); Basophils % (auto) 0.3 %; Immature Granulocytes # (auto) 0.63 K/uL (0.00-0.02); Immature Granulocytes % (auto) 5.6 %; Lymphocytes # (auto) 1.11 K/uL (1.2-3.4); Lymphocytes % (auto) 9.8 %; Monocytes % (auto) 10.6 %; Neutrophils # (auto) 8.31 K/uL (1.4-6.5); Neutrophils % (auto) 73.7 %
[2020-07-11 07:30] LABS: BUN Creatinine Ratio 22.5 (10-20); Calcium 8.4 mg/dl (8.5-10.1); Creatinine Clr Calc Pharmacy 44.1 ml/min; Est GFR (Non-African American) 48.4; Magnesium 2.1 mg/dl (1.8-2.4); Potassium 3.8 mmol/L (3.5-5.1)
[2020-07-11 07:48] LABS: Partial Thromboplastin Time 71.1 Seconds (21.0-31.0)
[2020-07-11] MEDS: HEPARIN SODIUM/DEXTROSE 25,000 UNITS/500 ML BAG IV SCH (08:05)
[2020-07-11] MEDS: INSULIN ASPART 100 UNITS/ML 3 ML PEN SC SCH ×2 (08:06→12:22)
[2020-07-11] MEDS: CALCIUM 600MG + VIT D 400 IU TAB PO SCH (08:10)
[2020-07-11] MEDS: ADVANCED PROBIOTIC 1250 MG CAPSULE PO SCH ×2 (08:10→12:20)
[2020-07-11] MEDS: INSULIN GLARGINE SOLOSTAR 100 UNITS/ML 3 ML PEN SC SCH (08:11)
[2020-07-11] MEDS: MESALAMINE 800 MG TABCR PO SCH ×2 (08:12→14:02)
[2020-07-11] MEDS: PANTOprazole 40 MG TAB PO SCH (08:12)
[2020-07-11] MEDS: predniSONE 20 MG TAB PO SCH (08:12)
[2020-07-11] MEDS: SERTRALINE HCL 50 MG TABLET PO SCH (08:13)
[2020-07-11] MEDS: CHOLECALCIFEROL 1,000 UNITS 25 MCG TAB PO SCH (08:13)
[2020-07-11] MEDS: CHOLESTYRAMINE LIGHT 4 GM PKT PO SCH (09:46)
--- NOTE | 2020-07-11 13:41 | Discharge Summary ---
Date of Service July 11, 2020 Admission HPI Per Admitting Provider History obtained from patient and records. 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 Last confinement April 2020 for L GIB, IBD flareup. Patient's Coumadin for recurrent DVT/PE switched to Eliquis about 2 months ago due to fluctuating INR levels in the setting of recurrent GI bleed by [facility]. Intermittent rectal bleed without pain from time to time. 3 days ago, patient noted achy generalized abdominal pain associated with worsening lower GI bleed. Some nausea, no emesis. No fever, no chills. No chest pain, no S OB. Patient brought to the ER for evaluation. Medical History as above 2018 colonoscopy showed ulcerative colitis, healing rectal ulcer Surgical History : Breast biopsy, appendectomy, tonsillectomy Family History : Pancreatic cancer, Crohn's disease, DM, heart disease Personal/Social history : Non-smoker, no EtOH intake, retired [employer] employee Admission Exam Per Admitting Provider GENERAL: Comfortable, obese, no respiratory distress SKIN: Pallor , warm HEENT: Pale palpebral conjunctivae, no ptosis, dry buccal mucosa NECK : Supple, short neck, no tenderness CHEST : CTA, no tenderness HEART : RRR, no obvious murmurs ABDOMEN: Some distention, nonspecific tenderness on light palpation EXTREMITIES : No LE swelling/tenderness, no other conspicuous deformities noted NEUROLOGIC : Coherent, no facial asymmetry, no other gross focality Principal Diagnosis Acute lower GI bleeding 2/2 Chron's colitis Acute on chronic blood loss anemia Acute on chronic deep vein thrombosis of both lower extremities Post-thrombotic syndrome of bilateral lower extremities Acute renal failure-resolved Discharge Exam CONSTITUTIONAL: WNWD, vitals as above, generally well-appearing EYES: normal conjunctivae, no scleral icterus ENT: external ear and nose normal, oropharynx clear, MMM RESPIRATORY: clear to auscultation bilaterally, no crackles, rales or wheezes, normal respiratory effort CARDIOVASCULAR: regular rate and rhythm, S1 and 2 heard without murmurs, gallops or rubs, no JVD, legs are less swollen today GASTROINTESTINAL: normal bowel sounds, soft, nontender, nondistended MUSCULOSKELETAL: strength 5/5 throughout, head is normocephalic and atraumatic, ambulating independently despite swollen legs. SKIN: warm and dry NEUROLOGIC: CN 2-12 grossly intact, no sensory deficit, normal cognition, normal speech, no tremor. No gross focal deficits. PSYCHIATRIC: alert cooperative and oriented to person, place and time. Discharge Data Allergies Allergy/AdvReac Type Severity Reaction Status Date / Time aztreonam [From Azactam] Allergy Intermediate flushed Verified 07/08/20 10:02 /itching dorzolamide Allergy Mild EYE LID Verified 07/08/20 10:02 SWELLING latanoprost Allergy Mild EYE LID Verified 07/08/20 10:02 SWELLING Penicillins Allergy Mild Rash Verified 07/08/20 10:02 timolol Allergy Mild EYE LID Verified 07/08/20 10:02 SWELLING thimerosal Allergy Unknown Unknown Verified 07/08/20 10:02 empagliflozin AdvReac Severe Confusion Verified 07/08/20 10:02 [From Jardiance] Consultations 07/01/20 05:37 ED Decision to Admit Stat 07/01/20 08:42 Consult Gastroenterology Routine Procedures Performed Operation Date: 07/08/20 17:15 Actual Procedures p Colonoscopy Biopsy Cytology - Pili Mcintosh MD Ordered Studies 07/01/20 03:38 CT abd pelvis IV con only Urgent 07/07/20 21:24 US venous doppler [facility] Urgent Hospital Course (1) Acute GI bleeding: (2) Acute on chronic blood loss anemia: (3) Crohn's colitis: (4) Acute deep vein thrombosis (DVT) of both lower extremities: (5) Acute renal failure: 64 yo F with admitted for Chron's colitis with worsening hematochezia and increased abdominal pain and intolerance of PO. She was also found to have acute on chronic bilateral lower extremity DVTs during this last admission as she was off her chronic Eliquis in the setting of acute lower GI bleeding. She was then placed on a heparin drip, however, this was stopped prior to discharge and the decision was made that she would stay off blood thinners at least until her PCP follow-up next week in order to allow the bleeding to slow down and hopefully stop. She did receive 2 units of blood just two days prior to discharge with an appropriate response in H/H and felt improved clinically afterwards. She even had an improvement in her abdominal pain after the blood transfusion. She was initially placed on IV steroids for two days and then switched to oral budesonide. She continued to bleed and on hospital day 5 she was put back on IV steroids and on 07/08 underwent a colonoscopy with Dr. Mcintosh. This revealed hemorhroids and moderate to severe pancolitis, Stelara was changed to q4 weeks and she was given a dose in the hospital on 07/09. Her initial H/H was around 9/30, and after 2 units of blood, her H/H on discharge was 9.5/30. At time of discharge she was mentating and ambulating at her baseline and she was tolerating PO. She was discharged in stable condition with close PCP followup off anticoagulation, and with the recommendation to be evaluated in the near futuer by a colorectal surgery for consideration of colectomy. Total Time Total Time Spent Total Time Spent (In Minutes): 60 Total Time Includes: Examination of the Patient, Discharge Planning, Medication Reconciliation, Communication With Other Providers and Other (followup appt scheduled) Discharge Plan Discharge Items Patient Disposition: Home - Self-Care Reason For Visit: COLITIS Discharge Diagnosis: Acute lower GI bleeding 2/2 Chron's colitis Acute on chronic blood loss anemia Acute on chronic deep vein thrombosis of both lower extremities Post-thrombotic syndrome of bilateral lower extremities Acute renal failure-resolved Activity: Resume your previous activity Non-emergency contact: Primary Care Provider Call non-emergency contact if: you have any medication questions, your symptoms worsen, your pain is not controlled, your pain is worsening, your pain is unusual for you, your pain is concerning for you and you have a fever Follow-up/Referrals: Isaias Templeton MD [Primary Care Provider] - (Date & Time 07/18/2020 11:00 AM Provider Isaias Templeton MD Department Family [facility] ) Diet: Carb Consistent or DM2 Addtl Attending Provider Instructions: Please take all medications as instructed on discharge list below. Please note you will no longer be on Eliquis for the time being until you are seen by your primary care physician next week. This may allow some time for the GI bleeding to slow down or stop. Please continue a prednisone taper as follows: 40mg (4 tabs) by mouth daily x 7 days, then take 30mg (3 tabs) by mouth daily x 7 days, then take 20mg (2 tabs) by mouth daily x 7 days, then take 10mg (1 tab) by mouth daily x 7 days, then stop Please follow-up with [facility] Gastroenterology within the next 1-2 months. Please consider using TEDs or other compression stockings for your legs to help control the pain and swelling. Please follow-up with your primary care provider as listed above. This appointment will be important to go over restarting your Eliquis, making sure your blood counts, kidney function and electrolytes look good, and ensure you have the appropriate referral to the surgical subspecialist recommended by gastroenterology for consideration of colectomy. It was a pleasure taking care of you! Please call if you have any questions or problems. You can reach a [facility] hospitalist on duty at [facility] 24 hours a day by calling [phone]. Take care of yourself. Julisa Montgomery, DO [facility] Hospitalist Pending Studies at Discharge: No Stand-Alone Forms: [facility] Medications and DC Order Prescriptions: New prednisone 10 mg tablet 10 mg PO UD Qty: 70 RF: 0 Continued furosemide [Lasix] 20 mg Tablet 20 mg PO QAM RF: 0 Probiotic Acidophilus Biobeads 12.9 mg (2 billion cell) Tablet,Delayed Release (Dr/Ec) 1 tab PO TIDM RF: 0 sertraline [Zoloft] 50 mg Tablet 50 mg PO QAM RF: 0 dicyclomine 10 mg capsule 10 mg PO BID PRN (Reason: abdominal cramping) RF: 0 cholestyramine (with sugar) [Questran] 4 gram powder in packet 1 ea PO BID RF: 0 Stelara 90 mg/mL syringe 90 mg SUBCUT .Q8WK RF: 0 trazodone 50 mg tablet 50 - 100 mg PO HS PRN (Reason: Sleep) RF: 0 mesalamine 800 mg tablet,delayed release (DR/EC) 800 mg PO TID RF: 0 Tresiba FlexTouch U-200 200 unit/mL (3 mL) insulin pen 30 unit SUBCUT DAILY RF: 0 Iron Infusion 1 dose IV .EVERY OTHER WEEK RF: 0 levothyroxine 75 mcg Tablet 75 mcg PO DAILYBB RF: 0 cholecalciferol (vitamin D3) [Vitamin D3] 1,000 unit Tablet 1,000 unit PO QAM RF: 0 calcium citrate-vitamin D3 [Citracal-D3 Petites] 200 mg calcium -250 unit Tablet 1 tab PO QAM RF: 0 atorvastatin 40 mg tablet 40 mg PO HS RF: 0 potassium chloride [Klor-Con M20] 20 mEq Tablet,Er Particles/Crystals 20 meq PO BID RF: 0 pantoprazole 40 mg tablet,delayed release (DR/EC) 40 mg PO QAM RF: 0 Discontinued Eliquis 2.5 mg tablet 2.5 mg PO BID RF: 0 Discharge Orders: Discharge Order (Routine); Ordered 07/11/20 Ordered By: Julisa Montana/Other Patient Handouts: Managing Type 2 Diabetes Admission Data Admit Date/Time: 07/01/20 06:30 Attending Provider: Julisa Montgomery Admit Provider: Inder Gonzales Primary Care Provider: Isaias Templeton Other Providers: Inder Gonzales ; Rajeev Orr ; Nasima Camarena ; Virgil Diamond ; Asia Amezcua ; Florian Greco ; Lacie Jacobson Irphan E. ; Miguel Tsai ; Alonso Felton ; Stacia Castaneda ; Katherine Cardoso ; Mera Ng ; Natacha áSnchez ; Caesar Chow ; Julisa Montgomery Other Interventions: Discharge Summary Assessment (RN) Last Done: 07/11/20 14:23
== END 2020-07-11 16:10 | disposition home or self-care (01) | DRG 386 ==
LOC: ED 02:57 → 2N 06:30 → SUATTDRO 06:30 → 2N 07:50

== ENCOUNTER 2020-09-28 14:30 | Inpatient (IN) ==
[2020-09-28] MEDS ORDERED: SODIUM CHLORIDE 0.9% 1000ML 1,000 ML IV ONE ×2 (14:47→19:05)
--- NOTE | 2020-09-28 14:58 | Emergency Department Note ---
Impression & Plan RB (rectal bleeding), Ulcerative colitis, Fistula ED Provider Note NAME: TYRESE PEÑALOZA AGE: 64 SEX: F : 1955 ARRIVES VIA: Ambulance INFORMANT: Patient, ED PROVIDER(S): Miguel Lopez DO CHIEF COMPLAINT: Postoperative wound check HPI: The patient is a 64-year-old female who presented to the emergency department for an evaluation after having postoperative pain. The patient had surgery at the beginning of the year for ulcerative colitis. She had a colectomy. The patient has an ostomy in her right side of her abdomen. She also has a history of a abscess which was treated at [facility] after the surgery. She returns today because of a presumed fistula. The patient was having her ostomy site changed when she was noted to have an area that was opened around her ostomy site. There was blood and purulent material coming from this area. She denies having any abdominal pain more than usual. She is had no fever nausea or vomiting. The on-call physician at her personal snf was notified and the patient was sent to the emergency department for further evaluation. ROS: See above HPI for pertinent positives & negatives. A total of 10 systems reviewed and were otherwise negative. PAST MEDICAL HISTORY: See Below PAST SURGICAL HISTORY: See Below FAMILY HISTORY: See Below SOCIAL HISTORY: See Below HOME MEDICATIONS: See Below ALLERGIES: See Below VITALS: See Below PHYSICAL EXAMINATION: GENERAL: The patient is awake and alert. The patient somewhat anxious appearing but overall comfortable. EYES: The conjunctivae are clear. The pupils are round and reactive. EARS, NOSE, MOUTH AND THROAT: The nose is without any evidence of any deformity. NECK: The neck is nontender and supple. RESPIRATORY: Normal respiratory effort is noted there is no evidence of wheezing rhonchi or rales CARDIOVASCULAR: Irregular and tachycardic heart sounds were noted to auscultation. GASTROINTESTINAL: The abdomen is mildly distended. There is no specific guarding or rigidity. The ostomy site in the right lower quadrant appears patent. There is stool in the ostomy bag. At approximately 10:00 to the ostomy site there is a small fistula. There is no active draining noted. MUSCULOSKELETAL/EXTREMITIES: There is no evidence of gross deformity full range of motion is noted in the hips and shoulders. SKIN: Skin is warm and dry. There was no significant pedal edema. NEUROLOGIC: Patient is awake alert and oriented x3. MEDICAL DECISION MAKING: Patient is a 64-year-old female who presented to the emergency department for an evaluation of abdominal pain. The patient has a history of ulcerative colitis and had previous history of colon resection at the beginning of this year. The patient had problems with her ostomy as well as postoperative infection with an abscess. The abscess was drained previously. Today she was noted to have a small fistula tract lateral to the ostomy site. She was sent to the emergency department for further evaluation. She was found to have low blood pressure and tachycardia. She was treated with IV fluids and IV antibiotics. She was reevaluated multiple times. I discussed the patient's laboratory and radiographic studies with her. I also discussed her presentation with the on- call automotive consultant. I do feel the patient would be a good candidate for management at our facility with evaluation by gastroenterology. He did recommend treatment with antibiotics and steroids. Triage Nursing notes reviewed. Prior medical records reviewed Vital Signs: reviewed and remarkable for low blood pressure and tachycardia. Differential diagnosis: Cellulitis, abscess, MRSA infection, DVT, necrotizing fasciitis, dermatitis, drug eruption, allergic reaction, fistula, abscess and other differential diagnoses were considered. ER treatment provided: See below Diagnostics interpreted by me: ECG: EKG was obtained in the emergency department. My interpretation is sinus tachycardia 104 bpm. There was no ectopy. Inferior Q waves were noted. Low voltage was noted throughout. This was compared to a tracing from September 032020. No significant changes were noted. Cardiac Monitoring: An order was placed for continuous cardiac monitoring. The monitor shows a rate of 115 bpm with sinus tachycardia rhythm. Laboratory studies: As stated above and show below. Imaging studies: See below Consultation(s): 1819: I discussed this case with Dr. Torrez 1914: I discussed this case with Dr. Montgomery who is on-call for the [facility] hospitalist group. She is asked that I discussed the case with general surgery. 1924: I discussed this case with Dr. Tesfaye who is on-call for the general surgical group. Past Med/Surg History Medical History Acute hyponatremia Acute kidney injury Anemia Breast cancer, right 2012--SX & RADIATION, NO CHEMO C. 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) "Abnormal right breast mammogram Biopsy-positive for DCIS Status post lumpectomy with no residual tumor stage pTis NXMX Estrogen receptor positive, progesterone receptor positive Status post completion of radiation therapy 02/22/2013 received 3850 cGy utilizing accelerated partial breast treatment " Obesity (BMI 30-39.9) Surgical History H/O breast biopsy 2012--RIGHT MALIGNANT H/O lumpectomy History of appendectomy History of colonoscopy History of lumpectomy of right breast "+ HERBIE ER/AK + in 10/2012 s/p RT" History of tonsillectomy and adenoidectomy Hx of appendectomy S/P insertion of IVC (inferior vena caval) filter 03/29/[address] BUSTAMANTE Status post glaucoma surgery BILT Family History Mother Family history of diabetes mellitus Heart disease Father Family history of diabetes mellitus Heart disease Sister Family history of diabetes mellitus Grandmother Family history of diabetes mellitus PATERNAL Uterine cancer Sister Crohn's disease Social History Smoking Status: Never smoker Second Hand Exposure: No; Hx Alcohol Use: No Hx Substance Use: No Preferred Language: Surinamese Communication Ability: Effective Visual Impairment: No Limitations Hearing Ability: Normal Health Unit Supervisor Required: No Beliefs That Will Affect Care: None marital status: Single Current Living Situation: Alone Current Living Situation Comment: alone How many Children do You have: 0 Feels Safe at Home: Yes Assistive Devices: Glasses and Walker Allergies Allergies Allergy/AdvReac Type Severity Reaction Status Date / Time aztreonam [From Azactam] Allergy Intermediate Flushed Verified 09/03/20 16:17 /itching dorzolamide Allergy Mild EYE LID Verified 09/03/20 14:47 SWELLING latanoprost Allergy Mild EYE LID Verified 09/03/20 14:47 SWELLING Penicillins Allergy Mild Rash Verified 09/03/20 14:47 timolol Allergy Mild EYE LID Verified 09/03/20 14:47 SWELLING amoxicillin [From Amoxil] Allergy Unknown Unknown Verified 09/03/20 16:17 brimonidine Allergy Unknown Unknown Verified 09/03/20 16:17 tafluprost Allergy Unknown Unknown Verified 09/03/20 16:17 thimerosal Allergy Unknown Unknown Verified 09/03/20 14:47 empagliflozin AdvReac Severe Confusion Verified 09/03/20 14:47 [From Jardiance] Home Meds Home Medications Medication Instructions Recorded Confirmed calcium citrate-vitamin D3 1 tab PO QAM 05/12/18 09/28/20 [Citracal-D3 Petites] cholecalciferol (vitamin D3) 1,000 unit PO QAM 05/12/18 09/28/20 [Vitamin D3] levothyroxine 75 mcg PO QAM 05/12/18 09/28/20 atorvastatin 40 mg PO HS 07/21/19 09/28/20 potassium chloride [Klor-Con M20] 20 meq PO TIDM 07/21/19 09/28/20 pantoprazole 40 mg PO QAM 02/15/20 09/28/20 dicyclomine 10 mg PO AMHS PRN 03/08/20 09/28/20 Tresiba FlexTouch U-200 30 unit SUBCUT QAM 07/01/20 09/28/20 Med Pass Supplement 90 ml PO TID 08/10/20 09/28/20 acetaminophen [Tylenol] 650 mg PO Q4H PRN MDD 3000 MG 08/10/20 09/28/20 APAP/24 HOURS apixaban [Eliquis] 2.5 mg PO AMHS 08/10/20 09/28/20 citalopram 10 mg PO QAM 08/10/20 09/28/20 furosemide [Lasix] 40 mg PO QAM 08/10/20 09/28/20 insulin aspart U-100 [Novolog 6 unit SUBCUT DIRECTED 08/10/20 09/28/20 Flexpen U-100 Insulin] insulin aspart U-100 [Novolog 10 unit SUBCUT QDL 08/10/20 09/28/20 Flexpen U-100 Insulin] mo-lg-fkse-FA-Ca carb-vit K 1 tab PO QAM 08/10/20 09/28/20 [One-A-Day Womens Formula] oxycodone 5 mg PO Q6H PRN 08/10/20 09/28/20 polysaccharide iron complex 150 mg PO WM 08/10/20 09/28/20 [Ferrex 150] ustekinumab [Stelara] See Rx Instructions .ROUTE .COMPLEX 08/28/20 09/28/20 B.ani-L.aci-L.rajat-L.plan-L.monik 1 cap PO TIDM 09/03/20 09/28/20 [Probiotic Formula] Results & Data (ED) Vital Signs Vital Signs - 24 hr 09/28/20 15:04 09/28/20 16:03 09/28/20 16:41 Temperature 37.8 C H Temperature Source Oral Pulse Rate 124 H 114 H 105 H Pulse Rate [Right Finger] Pulse Rate from SpO2 Sensor 115 H Pulse Rhythm Regular Pulse Strength Normal Respiratory Rate 22 21 Respiratory Effort / Characteristics Non-Labored Spontaneous Respiratory Depth Normal Respiratory Pattern Regular Blood Pressure 85/73 L 92/64 L 108/63 Blood Pressure [Right Arm] Blood Pressure Mean 77 73 78 Blood Pressure Mean [Right Arm] Blood Pressure Position Sitting Pulse Oximetry 95 99 Oxygen Delivery Method Room Air Sepsis Recent Fever Within 48 Hours No Sepsis New/Unexplained Change in Mental Status N/A Sepsis Action Taken by Nursing Physician Notified 09/28/20 16:44 09/28/20 17:02 09/28/20 17:24 Temperature Temperature Source Pulse Rate 113 H 116 H Pulse Rate [Right Finger] 104 H Pulse Rate from SpO2 Sensor 113 H 117 H Pulse Rhythm Pulse Strength Respiratory Rate 22 22 22 Respiratory Effort / Characteristics Respiratory Depth Respiratory Pattern Blood Pressure 85/59 L 100/74 Blood Pressure [Right Arm] 108/63 Blood Pressure Mean 67 82 Blood Pressure Mean [Right Arm] 78 Blood Pressure Position Pulse Oximetry 97 100 97 Oxygen Delivery Method Sepsis Recent Fever Within 48 Hours Sepsis New/Unexplained Change in Mental Status Sepsis Action Taken by Nursing 09/28/20 17:30 09/28/20 18:00 09/28/20 18:30 Temperature Temperature Source Pulse Rate 120 H 120 H 120 H Pulse Rate [Right Finger] Pulse Rate from SpO2 Sensor 121 H 121 H Pulse Rhythm Pulse Strength Respiratory Rate 19 24 21 Respiratory Effort / Characteristics Respiratory Depth Respiratory Pattern Blood Pressure 110/65 96/56 L 104/61 Blood Pressure [Right Arm] Blood Pressure Mean 80 69 75 Blood Pressure Mean [Right Arm] Blood Pressure Position Pulse Oximetry 100 98 100 Oxygen Delivery Method Sepsis Recent Fever Within 48 Hours Sepsis New/Unexplained Change in Mental Status Sepsis Action Taken by Nursing 09/28/20 19:00 Temperature Temperature Source Pulse Rate 118 H Pulse Rate [Right Finger] Pulse Rate from SpO2 Sensor 119 H Pulse Rhythm Pulse Strength Respiratory Rate 22 Respiratory Effort / Characteristics Respiratory Depth Respiratory Pattern Blood Pressure 89/57 L Blood Pressure [Right Arm] Blood Pressure Mean 67 Blood Pressure Mean [Right Arm] Blood Pressure Position Pulse Oximetry 100 Oxygen Delivery Method Sepsis Recent Fever Within 48 Hours Sepsis New/Unexplained Change in Mental Status Sepsis Action Taken by Snf Medications Current Medication List: was personally reviewed by me Laboratory Data Attestation: I reviewed the patient's lab results. Result diagrams: 09/28/20 16:26 09/28/20 16:26 Lab Results 09/28/20 09/28/20 09/28/20 Range/Units 16:26 16:26 16:26 WBC 14.49 H (4.8-10.8) K/uL RBC 3.57 L (4.2-5.4) M/uL Hgb 9.7 L (12.0-16.0) g/dL Hct 30.0 L (37-47) % MCV 84.0 (80-100) fL MCH 27.2 (25-34) pg MCHC 32.3 (32-36) g/dL RDW Std Deviation 50.0 H (36.4-46.3) fL RDW Coeff of Conchis 16.2 H (11.5-14.5) % Plt Count 617 H (130-400) K/uL MPV 8.9 (7.4-10.4) fL Neutrophils % (Manual) 90.5 % Lymphocytes % (Manual) 4.3 % Monocytes % (Manual) 1.7 % Eosinophils % (Manual) 0.9 % Basophils % (Manual) 1.7 % Metamyelocytes % (Man) 0.9 % Neutrophils # (Manual) 13.11 H (1.4-6.5) K/uL Total Absolute Neuts 13.11 H (1.4-6.5) K/uL Lymphocytes # (Manual) 0.62 L (1.2-3.4) K/uL Total Abs Lymphocytes 0.62 L (1.2-3.4) K/uL Monocytes # (Manual) 0.25 (0.11-0.59) K/uL Eosinophils # (Manual) 0.13 (0-0.5) K/uL Basophils # (Manual) 0.25 H (0-0.2) K/uL Metamyelocytes # (Man) 0.13 H (0-0) K/uL ESR 62 H (0-21) mm/hr PT 11.3 (9.0-12.0) Seconds INR 1.1 (0.9-1.1) APTT 26.5 (21.0-31.0) Seconds PTT Ratio 1.0 Sodium (136-145) mmol/L Potassium (3.5-5.1) mmol/L Chloride (98-107) mmol/L Carbon Dioxide (21-32) mmol/L Anion Gap (3-11) BUN (7-18) mg/dl Creatinine (0.6-1.2) mg/dl Est Cr Clr Drug Dosing ml/min Est GFR ( Amer) Est GFR (Non-Af Amer) BUN/Creatinine Ratio (10-20) Glucose (70-99) mg/dl Calcium (8.5-10.1) mg/dl Total Bilirubin (0.2-1) mg/dl AST (15-37) U/L ALT (12-78) U/L Alkaline Phosphatase (45-117) U/L Troponin I (0-0.045) ng/ml C-Reactive Protein (0-0.29) mg/dl Total Protein (6.4-8.2) gm/dl Albumin (3.4-5.0) gm/dl Globulin (2.5-4.0) gm/dl Albumin/Globulin Ratio (0.9-2) COVID-19 Eval Order SARS-CoV-2, RNA, NAAT (NEGATIVE) 09/28/20 09/28/20 09/28/20 Range/Units 16:26 18:19 18:19 WBC (4.8-10.8) K/uL RBC (4.2-5.4) M/uL Hgb (12.0-16.0) g/dL Hct (37-47) % MCV (80-100) fL MCH (25-34) pg MCHC (32-36) g/dL RDW Std Deviation (36.4-46.3) fL RDW Coeff of Conchis (11.5-14.5) % Plt Count (130-400) K/uL MPV (7.4-10.4) fL Neutrophils % (Manual) % Lymphocytes % (Manual) % Monocytes % (Manual) % Eosinophils % (Manual) % Basophils % (Manual) % Metamyelocytes % (Man) % Neutrophils # (Manual) (1.4-6.5) K/uL Total Absolute Neuts (1.4-6.5) K/uL Lymphocytes # (Manual) (1.2-3.4) K/uL Total Abs Lymphocytes (1.2-3.4) K/uL Monocytes # (Manual) (0.11-0.59) K/uL Eosinophils # (Manual) (0-0.5) K/uL Basophils # (Manual) (0-0.2) K/uL Metamyelocytes # (Man) (0-0) K/uL ESR (0-21) mm/hr PT (9.0-12.0) Seconds INR (0.9-1.1) APTT (21.0-31.0) Seconds PTT Ratio Sodium 133 L (136-145) mmol/L Potassium 4.3 (3.5-5.1) mmol/L Chloride 105 (98-107) mmol/L Carbon Dioxide 18 L (21-32) mmol/L Anion Gap 11.0 (3-11) BUN 25 H (7-18) mg/dl Creatinine 1.36 H (0.6-1.2) mg/dl Est Cr Clr Drug Dosing 34.3 ml/min Est GFR ( Amer) 47.2 Est GFR (Non-Af Amer) 40.7 BUN/Creatinine Ratio 18.1 (10-20) Glucose 77 (70-99) mg/dl Calcium 8.8 (8.5-10.1) mg/dl Total Bilirubin 0.4 (0.2-1) mg/dl AST 12 L (15-37) U/L ALT 6 L (12-78) U/L Alkaline Phosphatase 91 (45-117) U/L Troponin I < 0.015 (0-0.045) ng/ml C-Reactive Protein 5.68 H (0-0.29) mg/dl Total Protein 6.9 (6.4-8.2) gm/dl Albumin 2.3 L (3.4-5.0) gm/dl Globulin 4.6 H (2.5-4.0) gm/dl Albumin/Globulin Ratio 0.5 L (0.9-2) COVID-19 Eval Order Covid19 [facility] SARS-CoV-2, RNA, NAAT NEGATIVE (NEGATIVE) Administered Medications Sodium Chloride (Nss 1000ml) 1,000 mls @ 999 mls/hr IV .Q1H1M ONE Stop: 09/28/20 20:05 Last Admin: 09/28/20 19:23 Dose: 999 mls/hr Documented by: [id number] Discontinued Medications Sodium Chloride (Nss 1000ml) 1,000 mls @ 999 mls/hr IV .Q1H1M ONE Stop: 09/28/20 15:47 Last Infusion: 09/28/20 16:45 Dose: 0 mls/hr Documented by: [id number] Admin: 09/28/20 15:26 Dose: 999 mls/hr Documented by: [id number] Ceftriaxone Sodium (Rocephin) 1,000 mg in 50 mls @ 100 mls/hr IV NOW STA Stop: 09/28/20 18:05 Last Infusion: 09/28/20 18:48 Dose: 0 mls/hr Documented by: [id number] Admin: 09/28/20 18:18 Dose: 100 mls/hr Documented by: [id number] Methylprednisolone (Methylprednisolone 40 Mg/Ml Vial) 40 mg IV NOW STA Stop: 09/28/20 18:10 Last Admin: 09/28/20 18:18 Dose: 40 mg Documented by: [id number] Imaging Data Radiologist's Impression: Patient: TYRESE PEÑALOZA Admit Date: 09/28/20 MR#: [id number] Address1: [facility] [address] Acct ID:[id number] Address2: Date: 1955 [facility] Zip: [place] [address] Age: 64 Location: ED Sex: F Room/Bed: Att Phy: Diagnosis: ABD PAIN Grisel Phy: [facility] Service Date: 09/28/20 [facility] Phy: Interpreting Phy: Minh Bhat MD Admit Phy: Ordering Phy: Miguel Lopez DO cc: ~ ABDOMEN AND PELVIS CT WITHOUT CONTRAST CT DOSE: 317.88 mGy.cm HISTORY: Generalized abdominal pain TECHNIQUE: Multiaxial CT images of the abdomen and pelvis were performed without contrast. A dose lowering technique was utilized adhering to the principles of ALARA. COMPARISON STUDY: Abdomen and pelvis CT 09/03/2020. FINDINGS: The lung bases are essentially clear. No pneumoperitoneum. No pneumatosis. No suspicious lytic or blastic osseous lesions. There is a 3 cm stone within the gallbladder neck. However, no gallbladder wall thickening. The unenhanced pancreas, spleen, adrenal glands, and pancreas are unremarkable. There is a punctate nonobstructing stone within the right kidney. There are few punctate nonobstructing stones within the left kidney. No ureteral stones. No hydronephrosis. The bladder is unremarkable. The uterus and bilateral adnexa are within normal limits. An IVC filter is unchanged in position. No retroperitoneal lymphadenopathy. Calcified plaque within the normal caliber abdominal aorta. There again noted postoperative changes consistent with a subtotal colectomy and a right lower quadrant ileostomy. No dilated loops of bowel to suggest an o bstruction. The focal area of inflammatory change within the left lateral midabdomen persists. This is lateral to the ileocolonic anastomosis. Small foci of gas and fluid within the left lower quadrant abutting the anterior abdominal wall appear to represent loops of small bowel. No definite residual abscess identified on this noncontrast study. The left lower quadrant percutaneous drain has been removed in the interval. There is moderate thickening of the residual distal colon and rectum with pericolonic fat stranding. This has slightly progressed and is consistent with a nonspecific colitis. Inflammatory changes at the right lower quadrant ileostomy have improved. IMPRESSION: 1. Moderate thickening of the residual distal colon and rectum with pericolonic fat stranding. This has slightly progressed and is consistent with a nonspecific colitis. 2. Postoperative changes consistent with a prior subtotal colectomy and right lower quadrant ileostomy. 3. The focal area of inflammatory change within the left lateral midabdomen persists. This is lateral to the ileocolonic anastomosis. Small foci of gas and fluid within the left lower quadrant abutting the anterior abdominal wall appear to represent loops of small bowel. No definite residual abscess identified on this noncontrast study. The left lower quadrant percutaneous drain has been removed in the interval. 4. Bilateral nephrolithiasis. No ureteral stones. No hydronephrosis. 5. A 3 cm gallstone is seen at the gallbladder neck. However, no gallbladder wall thickening. ACT 112: Negative or not required by law. Electronically signed by: Minh Bhat M.D. 09/28/2020 5:24 PM Dictated: 09/28/201714 Transcribed: 09/28/201714 Patient: TYRESE PEÑALOZA Admit Date: 09/28/20 MR#: [id number] Address1: [address] [place] [address] Acct ID:[id number] Address2: Date: 1955 [facility] Zip: [place] [id number] Age: 64 Location: ED Sex: F Room/Bed: Att Phy: Diagnosis: ABD PAIN Grisel Phy: [facility] Service Date: 09/28/20 Fam Phy: Interpreting Phy: Minh Bhat MD Admit Phy: Ordering Phy: Miguel Lopez DO cc: ~ KUB HISTORY: Generalized abdominal pain COMPARISON: Abdomen and pelvis CT 09/03/2020. FINDINGS: The bowel gas pattern is unremarkable. There are no dilated loops of small bowel to suggest an obstruction. No renal calculi. No ureteral calculi. Calcifications in the deep pelvis likely represent phleboliths. These remain unchanged. There is a large gallstone again noted within the right upper quadrant. This measures 2.7 cm. This is located more medial compared to the prior studies and could be within the gallbladder neck. No pneumoperitoneum or pneumatosis. And IVC filter is unchanged in position. There is a right lower quadrant ostomy. IMPRESSION: 1. Medial deviation of the 2.7 cm gallstone which could be in the gallbladder neck. Follow-up right upper quadrant ultrasound recommended for further evaluation. 2. No evidence for bowel obstruction. ACT 112: Negative or not required by law. Electronically signed by: Minh Bhat M.D. 09/28/2020 3:36 PM Dictated: 09/28/20 1534 Transcribed: 09/28/201533 Discharge Plan Visit Data Chief Complaint: Abdominal Pain ED Provider: Miguel Lopez Discharge Problem: RB (rectal bleeding), Ulcerative colitis, Fistula Patient Disposition: Being Evaluated by Hospitalist Condition: Good Forms Stand Alone Forms: My [facility] Prescriptions Prescriptions: No Action dicyclomine 10 mg capsule 10 mg PO AMHS PRN (Reason: Cramping or Diarrhea) RF: 0 Tresiba FlexTouch U-200 200 unit/mL (3 mL) insulin pen 30 unit SUBCUT QAM RF: 0 levothyroxine 75 mcg Tablet 75 mcg PO QAM RF: 0 cholecalciferol (vitamin D3) [Vitamin D3] 1,000 unit Tablet 1,000 unit PO QAM RF: 0 calcium citrate-vitamin D3 [Citracal-D3 Petites] 200 mg calcium -250 unit Tablet 1 tab PO QAM RF: 0 atorvastatin 40 mg tablet 40 mg PO HS RF: 0 potassium chloride [Klor-Con M20] 20 mEq Tablet,Er Particles/Crystals 20 meq PO TIDM RF: 0 pantoprazole 40 mg tablet,delayed release (DR/EC) 40 mg PO QAM RF: 0 furosemide [Lasix] 40 mg Tablet 40 mg PO QAM RF: 0 acetaminophen [Tylenol] 325 mg Tablet 650 mg PO Q4H MDD 3000 MG APAP/24 HOURS PRN (Reason: Fever Or Pain) RF: 0 citalopram 10 mg Tablet 10 mg PO QAM RF: 0 polysaccharide iron complex [Ferrex 150] 150 mg iron Capsule 150 mg PO WM RF: 0 oxycodone 5 mg Tablet 5 mg PO Q6H PRN (Reason: Pain, Severe) RF: 0 insulin aspart U-100 [Novolog Flexpen U-100 Insulin] 100 unit/mL (3 mL) Insulin Pen 6 unit SUBCUT DIRECTED RF: 0 insulin aspart U-100 [Novolog Flexpen U-100 Insulin] 100 unit/mL (3 mL) Insulin Pen 10 unit SUBCUT QDL RF: 0 One-A-Day Womens Formula 18 mg iron-400 mcg-500 mg Tablet 1 tab PO QAM RF: 0 Eliquis 2.5 mg Tablet 2.5 mg PO AMHS RF: 0 Med Pass Supplement 90 ml PO TID RF: 0 Stelara 45 mg/0.5 mL Syringe See Rx Instructions .ROUTE .COMPLEX RF: 0 Probiotic Formula 10 billion cell (2 billion ea) Capsule 1 cap PO TIDM RF: 0 Referrals Referrals: Tanika Orozco [Primary Care Provider] - Discharge Problem: Ulcerative colitis Qualifiers: Ulcerative colitis location: unspecified ulcerative colitis location Digestive disease complication type: unspecified complication Qualified Code(s): K51.919 - Ulcerative colitis, unspecified with unspecified complications
--- NOTE | 2020-09-28 15:35 | XRay Report ---
XR chest 1V portable HISTORY: Fever COMPARISON: 09/03/2020. FINDINGS: The lungs are clear. Cardiac silhouette is normal in size. No pleural effusions. No pneumot horax. IMPRESSION: No acute process. ACT 112: Negative or not required by law. Electronically signed by: Minh Bhat M.D. 09/28/2020 3:33 PM
--- NOTE | 2020-09-28 15:37 | XRay Report ---
KUB HISTORY: Generalized abdominal pain COMPARISON: Abdomen and pelvis CT 09/03/2020. FINDINGS: The bowel gas pattern is unremarkable. There are no dilated loops of small bowel to suggest an obstruction. No renal calculi. No ureteral calculi. Calcifications in the deep pelvis likely rep resent phleboliths. These remain unchanged. There is a large gallstone again noted within the right u pper quadrant. This measures 2.7 cm. This is located more medial compared to the prior studies and co uld be within the gallbladder neck. No pneumoperitoneum or pneumatosis. And IVC filter is unchanged i n position. There is a right lower quadrant ostomy. IMPRESSION: 1. Medial deviation of the 2.7 cm gallstone which could be in the gallbladder neck. Follow-up right u pper quadrant ultrasound recommended for further evaluation. 2. No evidence for bowel obstruction. ACT 112: Negative or not required by law. Electronically signed by: Minh Bhat M.D. 09/28/2020 3:36 PM
[2020-09-28 16:49] LABS: Hemoglobin 9.7 g/dL (12.0-16.0); Mean Corpuscular Hemoglobin 27.2 pg (25-34); Mean Corpuscular Hgb Conc 32.3 g/dL (32-36); Mean Platelet Volume 8.9 fL (7.4-10.4); Platelet Count 617 K/uL (130-400); RDW Coefficient of Variation 16.2 % (11.5-14.5); Red Blood Count 3.57 M/uL (4.2-5.4); White Blood Count 14.49 K/uL (4.8-10.8)
[2020-09-28 17:00] LABS: INR 1.1 (0.9-1.1); Partial Thromboplastin Time 26.5 Seconds (21.0-31.0); Prothrombin Time 11.3 Seconds (9.0-12.0)
[2020-09-28 17:05] LABS: Alanine Aminotransferase 6 U/L (12-78); Albumin Level 2.3 gm/dl (3.4-5.0); Aspartate Aminotransferase 12 U/L (15-37); BUN Creatinine Ratio 18.1 (10-20); Blood Urea Nitrogen 25 mg/dl (7-18); C Reactive Protein 5.68 mg/dl (0-0.29); Calcium 8.8 mg/dl (8.5-10.1); Carbon Dioxide 18 mmol/L (21-32); Chloride 105 mmol/L (98-107); Creatinine Clr Calc Pharmacy 34.3 ml/min; Est GFR (African American) 47.2; Est GFR (Non-African American) 40.7; Glucose 77 mg/dl (70-99); Potassium 4.3 mmol/L (3.5-5.1); Sodium 133 mmol/L (136-145)
[2020-09-28 17:09] LABS: ALC (manual) 0.62 K/uL (1.2-3.4); ANC (manual) 13.11 K/uL (1.4-6.5); Albumin Globulin Ratio 0.5 (0.9-2); Alkaline Phosphatase 91 U/L (45-117); Basophils # (manual) 0.25 K/uL (0-0.2); Basophils % (manual) 1.7 %; Bilirubin,Total 0.4 mg/dl (0.2-1); Eosinophils # (manual) 0.13 K/uL (0-0.5); Eosinophils % (manual) 0.9 %; Globulin 4.6 gm/dl (2.5-4.0); Lymphocytes # (manual) 0.62 K/uL (1.2-3.4); Lymphocytes % (manual) 4.3 %; Metamyelocytes # (manual) 0.13 K/uL (0-0); Metamyelocytes % (manual) 0.9 %; Monocytes # (manual) 0.25 K/uL (0.11-0.59); Monocytes % (manual) 1.7 %; Neutrophils # (manual) 13.11 K/uL (1.4-6.5); Neutrophils % (manual) 90.5 %; Total Protein 6.9 gm/dl (6.4-8.2); Troponin I < 0.015 ng/ml (0-0.045)
--- NOTE | 2020-09-28 17:26 | CT Scan Report ---
ABDOMEN AND PELVIS CT WITHOUT CONTRAST CT DOSE: 317.88 mGy.cm HISTORY: Generalized abdominal pain TECHNIQUE: Multiaxial CT images of the abdomen and pelvis were performed without contrast. A dose lo wering technique was utilized adhering to the principles of ALARA. COMPARISON STUDY: Abdomen and pelvis CT 09/03/2020. FINDINGS: The lung bases are essentially clear. No pneumoperitoneum. No pneumatosis. No suspicious ly tic or blastic osseous lesions. There is a 3 cm stone within the gallbladder neck. However, no gallbl adder wall thickening. The unenhanced pancreas, spleen, adrenal glands, and pancreas are unremarkable . There is a punctate nonobstructing stone within the right kidney. There are few punctate nonobstruc ting stones within the left kidney. No ureteral stones. No hydronephrosis. The bladder is unremarkabl e. The uterus and bilateral adnexa are within normal limits. An IVC filter is unchanged in position. No retroperitoneal lymphadenopathy. Calcified plaque within the normal caliber abdominal aorta. There again noted postoperative changes consistent with a subtotal colectomy and a right lower quadrant il eostomy. No dilated loops of bowel to suggest an obstruction. The focal area of inflammatory change w ithin the left lateral midabdomen persists. This is lateral to the ileocolonic anastomosis. Small foc i of gas and fluid within the left lower quadrant abutting the anterior abdominal wall appear to repr esent loops of small bowel. No definite residual abscess identified on this noncontrast study. The le ft lower quadrant percutaneous drain has been removed in the interval. There is moderate thickening o f the residual distal colon and rectum with pericolonic fat stranding. This has slightly progressed a nd is consistent with a nonspecific colitis. Inflammatory changes at the right lower quadrant ileosto my have improved. IMPRESSION: 1. Moderate thickening of the residual distal colon and rectum with pericolonic fat stranding. This h as slightly progressed and is consistent with a nonspecific colitis. 2. Postoperative changes consistent with a prior subtotal colectomy and right lower quadrant ileostom y. 3. The focal area of inflammatory change within the left lateral midabdomen persists. This is lateral to the ileocolonic anastomosis. Small foci of gas and fluid within the left lower quadrant abutting the anterior abdominal wall appear to represent loops of small bowel. No definite residual abscess id entified on this noncontrast study. The left lower quadrant percutaneous drain has been removed in th e interval. 4. Bilateral nephrolithiasis. No ureteral stones. No hydronephrosis. 5. A 3 cm gallstone is seen at the gallbladder neck. However, no gallbladder wall thickening. ACT 112: Negative or not required by law. Electronically signed by: Minh Bhat M.D. 09/28/2020 5:24 PM
[2020-09-28] MEDS ORDERED: cefTRIAXone SODIUM 1,000 MG/50 ML BAG IV STA (17:36)
--- NOTE | 2020-09-28 20:42 | History & Physical Report ---
Date of Service September 28, 2020 Assessment & Plan (1) Acute GI bleeding: Persistent GI bleeding related to active UC despite total colectomy. She is planned for an upcoming completion proctectomy. She appears inflamed with elevated ESR, CRP, WBC, thrombocytosis--this taken together with her physical exam findings is more suggestive of an IBD flare. However, with a concern for possible fistulous disease and possible pus coming from this area, infection is still a possibility. Will treat with broad spectrum abx at this time pending clinical improvement and negative cultures. Will defer continuation of steroids to GI who is consulted. General surgery is also consulted to assist with edith- ostomy wound. Will hold her Eliquis for now with continued active bleeding per rectum. She is anemic but not requiring transfusion at this time. Trend CBC in am, noting 2-3 L of fluid prior to am draw as hemodilution will play a role in H/H levels most likely. (2) Anemia: 2/2/ GI blood losses. Trend CBC in am as above. (3) Ulcerative colitis: total colectomy 07/17/20 with upcoming completion proctectomy planned [place] [facility] [place]. Appreciate general surgery and GI thoughts on need to expedite this. (4) DMII (diabetes mellitus, type 2): basal/bolus insulin while hospitalized. Monitor closely with steroids on board. (5) Fistula: periostomy wound described as and concerning for possible fistulous disease. Per General Surgery recommendations. (6) KOKI (acute kidney injury): likely related to recent poor PO intake. Cont IVF and repeat BMP in am. (7) DVT prophylaxis: SCDs for now, Eliquis placed on hold in setting of active bleeding. Full Code Dispo-uncertain, pending subspecialty recommendations. May transfer to [facility]. She is [facility]. I updated her sister by phone at patient's request. Patient may give up her bed there in the meantime. Appreciate case management assistance with this. Julisa Montgomery DO [facility] Hospitalist (8) Status post colectomy: History of Present Illness Chief Complaint: post operative wound check [facility] The patient is a 64-year-old female with history of ulcerative colitis refractory to immunotherapy with Stelara for many months, who underwent a laparoscopic total colectomy with end ileostomy on 07/17/2020 at [facility]. She has a h/o c-diff and was found to have recurrent c-diff infection on 07/15/20 during that admission. After the colectomy her diarrhea resolved and she was taken out of contact isolation. Her postoperative course was complicated by hypervolemia requiring high doses of IV Lasix. She presented to [facility] later that month (Jul 2020) after a left lower abscess was found and was transferred to [facility] for IR drainage of this. She was discharged and presented again with transfer to [facility] in Aug 2020 for abdominal pain and rectal bleeding. IR interrogated the drain as there was concern for fistulization between sigmoid colon and the abscess, however reassurance was provided and this was kept in place. She was sent home on a course of Cipro and Flagyl on 09/05 with a plan to return to colorectal surgery to discuss a completion proctectomy with Dr. Aj Morales (colorectal surgery-[facility]). During a followup visit in the clinic with Dr. El on 09/20, The IR drain was removed. Dr. El planned for completion proctectomy in early October. She has noted several days of worsening abdominal pain and persistent bloody diarrhea per rectum. Normal brown fecal material is present in the ostomy site. She is notably on Eliquis for DVT/PE. Her most recent lower extremity venous doppler revealed acute on chronic bilat DVT 07/07/20. She has a confirmed IVF filter in place. She presents with new concerning findings of possible fistula lateral to her ostomy site where there is a small opening where drainage was present today. Initially, the patient described what looked like a small amount of pus followed by bloody discharge. This was cleaned out by on site nursing staff. She continues to eat very little and have multiple bright red bowel movements per rectum. She reports feeling hot and cold all day today and feels fatigued and malaise generally. ROS is otherwise negative. Allergies Allergy/AdvReac Type Severity Reaction Status Date / Time aztreonam [From Azactam] Allergy Intermediate Flushed Verified 09/03/20 16:17 /itching dorzolamide Allergy Mild EYE LID Verified 09/03/20 14:47 SWELLING latanoprost Allergy Mild EYE LID Verified 09/03/20 14:47 SWELLING Penicillins Allergy Mild Rash Verified 09/03/20 14:47 timolol Allergy Mild EYE LID Verified 09/03/20 14:47 SWELLING amoxicillin [From Amoxil] Allergy Unknown Unknown Verified 09/03/20 16:17 brimonidine Allergy Unknown Unknown Verified 09/03/20 16:17 tafluprost Allergy Unknown Unknown Verified 09/03/20 16:17 thimerosal Allergy Unknown Unknown Verified 09/03/20 14:47 empagliflozin AdvReac Severe Confusion Verified 09/03/20 14:47 [From Jardiance] Home Medications Medication Instructions Recorded Confirmed Type calcium citrate-vitamin D3 1 tab PO QAM 05/12/18 09/28/20 History [Citracal-D3 Petites] cholecalciferol (vitamin D3) 1,000 unit PO QAM 05/12/18 09/28/20 History [Vitamin D3] levothyroxine 75 mcg PO QAM 05/12/18 09/28/20 History atorvastatin 40 mg PO HS 07/21/19 09/28/20 History potassium chloride [Klor-Con M20] 20 meq PO TIDM 07/21/19 09/28/20 History pantoprazole 40 mg PO QAM 02/15/20 09/28/20 History dicyclomine 10 mg PO AMHS PRN 03/08/20 09/28/20 History Tresiba FlexTouch U-200 30 unit SUBCUT QAM 07/01/20 09/28/20 History Med Pass Supplement 90 ml PO TID 08/10/20 09/28/20 History acetaminophen [Tylenol] 650 mg PO Q4H PRN MDD 3000 MG 08/10/20 09/28/20 History APAP/24 HOURS apixaban [Eliquis] 2.5 mg PO AMHS 08/10/20 09/28/20 History citalopram 10 mg PO QAM 08/10/20 09/28/20 History furosemide [Lasix] 40 mg PO QAM 08/10/20 09/28/20 History insulin aspart U-100 [Novolog 6 unit SUBCUT DIRECTED 08/10/20 09/28/20 History Flexpen U-100 Insulin] insulin aspart U-100 [Novolog 10 unit SUBCUT QDL 08/10/20 09/28/20 History Flexpen U-100 Insulin] fv-ai-odcz-FA-Ca carb-vit K 1 tab PO QAM 08/10/20 09/28/20 History [One-A-Day Womens Formula] oxycodone 5 mg PO Q6H PRN 08/10/20 09/28/20 History polysaccharide iron complex 150 mg PO WM 08/10/20 09/28/20 History [Ferrex 150] B.ani-L.aci-L.rajat-L.plan-L.monik 1 cap PO TIDM 09/03/20 09/28/20 History [Probiotic Formula] Past Med/Surg History Medical History Acute hyponatremia Acute kidney injury Anemia Breast cancer, right 2012--SX & RADIATION, NO CHEMO C. 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) "Abnormal right breast mammogram Biopsy-positive for DCIS Status post lumpectomy with no residual tumor stage pTis NXMX Estrogen receptor positive, progesterone receptor positive Status post completion of radiation therapy 02/22/2013 received 3850 cGy utilizing accelerated partial breast treatment " Obesity (BMI 30-39.9) Surgical History H/O breast biopsy 2012--RIGHT MALIGNANT H/O lumpectomy History of appendectomy History of colonoscopy History of lumpectomy of right breast "+ HERBIE ER/IL + in 10/2012 s/p RT" History of tonsillectomy and adenoidectomy Hx of appendectomy S/P insertion of IVC (inferior vena caval) filter 03/29/[address] BUSTAMANTE Status post colectomy Status post glaucoma surgery BILT Family History Mother Family history of diabetes mellitus Heart disease Father Family history of diabetes mellitus Heart disease Sister Family history of diabetes mellitus Grandmother Family history of diabetes mellitus PATERNAL Uterine cancer Sister Crohn's disease Social History Smoking Status: Never smoker Second Hand Exposure: No; Hx Alcohol Use: No Hx Substance Use: No Preferred Language: Italian Communication Ability: Effective Visual Impairment: No Limitations Hearing Ability: Normal Morgue Librarian Required: No Beliefs That Will Affect Care: Restorationist Restorationist Beliefs: Mandaeism marital status: Single Current Living Situation: Alone Current Living Situation Comment: alone How many Children do You have: 0 Feels Safe at Home: Yes Safety Concerns: Feels Safe At This Time Assistive Devices: Glasses and Walker Review of Systems Review of Systems: All systems reviewed & are unremarkable except as noted in HPI & below Physical Exam Physical Exam: CONSTITUTIONAL: WNWD, vitals as above, generally ill-appearing EYES: normal conjunctivae, no scleral icterus ENT: external ear and nose normal, oropharynx clear, MMM RESPIRATORY: clear to auscultation bilaterally, no crackles, rales or wheezes, normal respiratory effort CARDIOVASCULAR: regular rate and rhythm, S1 and 2 heard without murmurs, gallops or rubs, no JVD, no peripheral edema GASTROINTESTINAL: soft, diffusely tender, nondistended. Prior IR drain site on LLQ healed up, no drainage. Ostomy bag intact, appears to be covering small opening, but no evidence of surrounding erythema, ostomy is pink, brown fecal material in bag, no blood seen. MUSCULOSKELETAL: strength 5/5 throughout, head is normocephalic and atraumatic SKIN: warm and dry NEUROLOGIC: CN 2-12 grossly intact, normal cognition, normal speech, no gross focal deficits. PSYCHIATRIC: alert cooperative and oriented to person, place and time. Results & Data Results & Data ([facility]) Vital Signs (Past 12 Hours) Vital Signs Temp Pulse Pulse Resp BP BP Pulse Ox 09/28/20 20:00 103 H 23 104/56 L 09/28/20 19:30 109 H 23 97/57 L 99 09/28/20 19:00 118 H 22 89/57 L 100 09/28/20 18:30 120 H 21 104/61 100 09/28/20 18:00 120 H 24 96/56 L 98 09/28/20 17:30 120 H 19 110/65 100 09/28/20 17:24 116 H 22 100/74 97 09/28/20 17:02 113 H 22 85/59 L 100 09/28/20 16:44 104 H 22 108/63 97 09/28/20 16:41 105 H 108/63 09/28/20 16:03 114 H 21 92/64 L 99 09/28/20 15:04 37.8 C H 124 H 22 85/73 L 95 Laboratory Results Short CBC 09/28/20 Range/Units 16:26 WBC 14.49 H (4.8-10.8) K/uL Hgb 9.7 L (12.0-16.0) g/dL Hct 30.0 L (37-47) % Plt Count 617 H (130-400) K/uL BMP 09/28/20 16:26 Sodium 133 L Potassium 4.3 Chloride 105 Carbon Dioxide 18 L BUN 25 H Creatinine 1.36 H Glucose 77 Calcium 8.8 Cardiac Enzymes 09/28/20 Range/Units 16:26 Troponin I < 0.015 (0-0.045) ng/ml Liver Function 09/28/20 Range/Units 16:26 Total Bilirubin 0.4 (0.2-1) mg/dl AST 12 L (15-37) U/L ALT 6 L (12-78) U/L Alkaline Phosphatase 91 (45-117) U/L Albumin 2.3 L (3.4-5.0) gm/dl Medications Administered NSS 2L Ceftriazone 1gm IV Methyprednisolone 40mg IV Code Status & VTE Plan VTE Prophylaxis Plan VTE Prophylaxis will be ordered: Yes (1) Anemia Anemia type: unspecified type Qualified Code(s): D64.9 - Anemia, unspecified (2) Ulcerative colitis Digestive disease complication type: unspecified complication Ulcerative colitis location: unspecified ulcerative colitis location Qualified Code(s): K51.919 - Ulcerative colitis, unspecified with unspecified complications
[2020-09-28] MEDS ORDERED: ALUMINUM/MAGNESIUM SUSP 30 ML UDC PO PRN (21:33)
[2020-09-28] MEDS ORDERED: GLUCAGON FOR INJ 1 MG VIAL SQ PRN (21:33)
[2020-09-28] MEDS ORDERED: CARBOHYDRATES FOR HYPOGLYCEMIA PO PRN (21:33)
[2020-09-28] MEDS ORDERED: GLUCOSE 10 TABS/TUBE PO PRN (21:33)
[2020-09-28] MEDS ORDERED: DEXTROSE 50% 50 ML SYRINGE IV PRN (21:33)
[2020-09-28] MEDS ORDERED: GLUCOSE 40% GEL 15 GM TUBE PO PRN (21:33)
[2020-09-28] MEDS: ACETAMINOPHEN 325 MG TAB PO PRN (21:55)
[2020-09-28] MEDS ORDERED: CEFEPIME CONSULT ACTIVE PRN (22:31)
[2020-09-28] MEDS: INSULIN ASPART 100 UNITS/ML 3 ML PEN SC SCH (22:49)
[2020-09-28] MEDS: INSULIN GLARGINE SOLOSTAR 100 UNITS/ML 3 ML PEN SC SCH (22:50)
[2020-09-28] MEDS: CEFEPIME 2,000 MG in SYRINGE 0 ML IV SCH (22:51)
[2020-09-28] MEDS: metroNIDAZOLE 500 MG/100 ML BAG IV SCH (22:51)
[2020-09-28] MEDS: SODIUM CHLORIDE 0.9% 1000ML 1,000 ML IV SCH (23:00)
[2020-09-28] MEDS ORDERED: DICYCLOMINE HCL 10 MG CAP PO PRN (23:20)
--- NOTE | 2020-09-28 23:21 | Surgery Consultation ---
Date of Consultation September 28, 2020 Assessment & Plan (1) Status post colectomy: Patient has been admitted to the hospital by the medical service. The following recommendations are in place: It appears by CT scan that the patient has a nonspecific colitis of her remaining colon. Her underlying rectal bleeding may be related to this colitis which may represent a flare of ulcerative colitis. Gastroenterology consultation has been requested and will await their input Patient has been initiated on antibiotics in the form of cefepime and Flagyl which should continue Patient should be hydrated with IV fluids It does not appear the patient requires acute surgical intervention at this time. As the patient is scheduled for repeat surgery by her colorectal surgeon in [place] in early October of this year will be prudent to discuss her current situation with her colorectal surgeon and if any expedited procedures are needed it may be best performed by her team at [facility]. Remainder of plan as directed by primary service Supervising Physician Co-Signing Physician Notes I personally saw and evaluated the patient with Alexander Grey PA-C and agree with the assessment and plan. 64 yo female s/p subtotal colectomy with ileostomy for UC -CT images and results reviewed, no intraabdominal abscess noted, her WBC has been elevated in the past -Agree with GI consult to address her rectal bleeding, likely still from her UC -Unsure if she is developing a fistula lateral to her ileostomy, no history of bilious drainage from the area -No plans for any surgical intervention -If she does not improve would repeat CT with PO contrast to eval for leak and/or fistula -Will follow History of Present Illness Reason for Consultation: Rectal bleeding, abdominal fistula Attending Physician: Julisa Montgomery DO History of Present Illness This is a 64-year-old female with an underlying history of ulcerative colitis. Patient says that she underwent a subtotal colectomy at [facility] in [place], [place] earlier this year. She reports that she is scheduled to have the remainder of her colon removed in early October of this year. Patient notes that for the past several days she has had low-grade fevers and she has not been feeling well. Over the past 24 hours she has noted a fistulous track open just lateral to her ostomy. She does not report any bloody drainage or gross pus but did note some clear drainage from this opening. She notes that as far she can tell her ostomy has been functioning normally although she admits the output may be slightly decreased as her oral intake has not been what it usually is. In addition she notes that food does not taste very well and she has a poor appetite. She does not have any nausea or vomiting but does report some vague abdominal pain. She also notes that she has been having rectal bleeding with grossly bloody output for the past several weeks. She does not report any cough or shortness of breath. In the emergency department she had imaging and laboratories were performed which were independently reviewed by myself. CBC revealed white blood cell count was 14.4. Hemoglobin hematocrit were noted to be 9.7 and 30. Platelet count was noted to be 617,000. Erythrocyte sedimentation rate was elevated at 62. Chemistry profile revealed slight elevation of her BUN and creatinine at 25 1.3. Her sodium was 133 and her potassium was within the normal range. A Covid test was performed and was noted to be negative. A chest x-ray showed no evidence of pneumonia or CHF. A KUB showed no evidence of bowel obstruction. CT scan of the abdomen and pelvis was performed which did show some inflammation of the remaining distal colon as well as rectum felt to be consistent with a nonspecific colitis. Gallstone was noted however there is no inflammation or gallbladder wall thickening noted. At the time of my interview she is resting comfortably in bed and was not in any distress Allergies Allergy/AdvReac Type Severity Reaction Status Date / Time aztreonam [From Azactam] Allergy Intermediate Flushed Verified 09/03/20 16:17 /itching dorzolamide Allergy Mild EYE LID Verified 09/03/20 14:47 SWELLING latanoprost Allergy Mild EYE LID Verified 09/03/20 14:47 SWELLING Penicillins Allergy Mild Rash Verified 09/03/20 14:47 timolol Allergy Mild EYE LID Verified 09/03/20 14:47 SWELLING amoxicillin [From Amoxil] Allergy Unknown Unknown Verified 09/03/20 16:17 brimonidine Allergy Unknown Unknown Verified 09/03/20 16:17 tafluprost Allergy Unknown Unknown Verified 09/03/20 16:17 thimerosal Allergy Unknown Unknown Verified 09/03/20 14:47 empagliflozin AdvReac Severe Confusion Verified 09/03/20 14:47 [From Jardiance] Home Medications Medication Instructions Recorded Confirmed Type calcium citrate-vitamin D3 1 tab PO QAM 05/12/18 09/28/20 History [Citracal-D3 Petites] cholecalciferol (vitamin D3) 1,000 unit PO QAM 05/12/18 09/28/20 History [Vitamin D3] levothyroxine 75 mcg PO QAM 05/12/18 09/28/20 History atorvastatin 40 mg PO HS 07/21/19 09/28/20 History potassium chloride [Klor-Con M20] 20 meq PO TIDM 07/21/19 09/28/20 History pantoprazole 40 mg PO QAM 02/15/20 09/28/20 History dicyclomine 10 mg PO AMHS PRN 03/08/20 09/28/20 History Tresiba FlexTouch U-200 30 unit SUBCUT QAM 07/01/20 09/28/20 History Med Pass Supplement 90 ml PO TID 08/10/20 09/28/20 History acetaminophen [Tylenol] 650 mg PO Q4H PRN MDD 3000 MG 08/10/20 09/28/20 History APAP/24 HOURS apixaban [Eliquis] 2.5 mg PO AMHS 08/10/20 09/28/20 History citalopram 10 mg PO QAM 08/10/20 09/28/20 History furosemide [Lasix] 40 mg PO QAM 08/10/20 09/28/20 History insulin aspart U-100 [Novolog 6 unit SUBCUT DIRECTED 08/10/20 09/28/20 History Flexpen U-100 Insulin] insulin aspart U-100 [Novolog 10 unit SUBCUT QDL 08/10/20 09/28/20 History Flexpen U-100 Insulin] dw-[id number]-zttt-FA-Ca carb-vit K 1 tab PO QAM 08/10/20 09/28/20 History [One-A-Day Womens Formula] oxycodone 5 mg PO Q6H PRN 08/10/20 09/28/20 History polysaccharide iron complex 150 mg PO WM 08/10/20 09/28/20 History [Ferrex 150] B.ani-L.aci-L.rajat-L.plan-L.monik 1 cap PO TIDM 09/03/20 09/28/20 History [Probiotic Formula] Patient History Medical History Acute hyponatremia Acute kidney injury Anemia Breast cancer, right 2012--SX & RADIATION, NO CHEMO C. 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) "Abnormal right breast mammogram Biopsy-positive for DCIS Status post lumpectomy with no residual tumor stage pTis NXMX Estrogen receptor positive, progesterone receptor positive Status post completion of radiation therapy 02/22/2013 received 3850 cGy utilizing accelerated partial breast treatment " Obesity (BMI 30-39.9) Surgical History H/O breast biopsy 2012--RIGHT MALIGNANT H/O lumpectomy History of appendectomy History of colonoscopy History of lumpectomy of right breast "+ HERBIE ER/RI + in 10/2012 s/p RT" History of tonsillectomy and adenoidectomy Hx of appendectomy S/P insertion of IVC (inferior vena caval) filter 03/29/[address] BUSTAMANTE Status post colectomy Status post glaucoma surgery BILT Family History Mother Family history of diabetes mellitus Heart disease Father Family history of diabetes mellitus Heart disease Sister Family history of diabetes mellitus Grandmother Family history of diabetes mellitus PATERNAL Uterine cancer Sister Crohn's disease Social History Smoking Status: Never smoker Second Hand Exposure: No; Hx Alcohol Use: No Hx Substance Use: No Preferred Language: Swedish Communication Ability: Effective Visual Impairment: No Limitations Hearing Ability: Normal Wharf Hand Required: No Beliefs That Will Affect Care: Caodaism Caodaism Beliefs: Anglican marital status: Single Current Living Situation: Alone Current Living Situation Comment: alone How many Children do You have: 0 Feels Safe at Home: Yes Safety Concerns: Feels Safe At This Time Assistive Devices: Glasses and Walker Review of Systems Constitutional: + fever and + anorexia; no chills Eyes: no diplopia Ear, Nose, Mouth, Throat: no ear pain Respiratory: no cough and no dyspnea Cardiovascular: no chest pain Gastrointestinal: + abdominal pain and + blood in stools; no nausea and no vomiting Genitourinary: no dysuria Musculoskeletal: no back pain Integumentary: no rash Neurologic: no localized weakness Physical Exam Constitutional: well developed and well nourished; no acute distress Eyes: no conjunctival abnormality Wears glasses ENMT: Ears: no hearing impairment Neck: trachea midline Respiratory: normal respiratory effort; no respiratory distress and no labored breathing Cardiovascular: Rate/Rhythm: regular rate and regular rhythm Gastrointestinal (Abdomen): Abdomen is soft and nondistended. She did have a small amount of pain in a generalized fashion with palpation. There is no rebound tenderness or guarding. Bowel sounds are present. Patient did have an ostomy present on the right side of her abdomen. Brown stool is noted in the collection bag. At approximately the 10 o'clock position just lateral to her ostomy is a small opening consistent with a fistulous tract. There is no drainage at the present time. Musculoskeletal: No calf tenderness Skin: no rashes, warm and dry Neurologic: moves all extremities Psychiatric: A+Ox3, euthymic affect Results & Data ([facility]) Vital Signs (Past 12 Hours) Vital Signs Temp Pulse Pulse Resp BP BP Pulse Ox 09/28/20 21:36 37.8 C H 95 H 18 82/55 L 98 09/28/20 20:30 102 H 21 99/66 L 09/28/20 20:00 103 H 23 104/56 L 09/28/20 19:30 109 H 23 97/57 L 99 09/28/20 19:00 118 H 22 89/57 L 100 09/28/20 18:30 120 H 21 104/61 100 09/28/20 18:00 120 H 24 96/56 L 98 09/28/20 17:30 120 H 19 110/65 100 09/28/20 17:24 116 H 22 100/74 97 09/28/20 17:02 113 H 22 85/59 L 100 09/28/20 16:44 104 H 22 108/63 97 09/28/20 16:41 105 H 108/63 09/28/20 16:03 114 H 21 92/64 L 99 09/28/20 15:04 37.8 C H 124 H 22 85/73 L 95 PG Care Time/CCT Total # of Minutes Spent Total Time Spent with Patient: Total time spent is greater than 50% in coordination of care (as documented) at patient's floor/unit and/or counseling patient: Coding Level of Care Code 39296 Inpt Consult Level 5 Diagnoses Status post colectomy Z90.49
[2020-09-28] MEDS ORDERED: oxyCODONE HCL IR 5 MG TAB (IMMEDIATE RELEASE) PO PRN (23:44)
[2020-09-29] MEDS: LEVOTHYROXINE SODIUM 75 MCG TABLET PO SCH (05:57)
[2020-09-29] MEDS: metroNIDAZOLE 500 MG/100 ML BAG IV SCH ×3 (05:57→21:19)
[2020-09-29 06:14] LABS: Basophils # (auto) 0.02 K/uL (0-0.2); Basophils % (auto) 0.1 %; Eosinophils # (auto) 0.01 K/uL (0-0.5); Eosinophils % (auto) 0.1 %; Hematocrit (blood only) 27.3 % (37-47); Hemoglobin 8.7 g/dL (12.0-16.0); Immature Granulocytes # (auto) 0.28 K/uL (0.00-0.02); Immature Granulocytes % (auto) 1.8 %; Lymphocytes # (auto) 0.89 K/uL (1.2-3.4); Lymphocytes % (auto) 5.6 %; Mean Corpuscular Hemoglobin 26.9 pg (25-34); Mean Corpuscular Hgb Conc 31.9 g/dL (32-36); Mean Corpuscular Volume 84.5 fL (80-100); Monocytes % (auto) 1.9 %; Neutrophils % (auto) 90.5 %; Platelet Count 523 K/uL (130-400); RDW Coefficient of Variation 16.3 % (11.5-14.5); RDW Standard Deviation 50.9 fL (36.4-46.3); Red Blood Count 3.23 M/uL (4.2-5.4)
--- NOTE | 2020-09-29 06:22 | Surgery Progress Note ---
Date of Service September 29, 2020 Assessment & Plan (1) Status post colectomy: -nonspecific colitis noted affecting remaining colon. -rectal bleeding may be due to colitis/flare of ulcerative colitis. Gastroenterology consultation has been requested and is pending -Continue antibiotics in the form of cefepime and Flagyl Continue hydration with IV fluids The patient is scheduled for repeat surgery by her colorectal surgeon in [place] in early October of this year. If an expedited surgical procedure is required would recommend contacting her colorectal surgeon at [facility]. Remainder of plan as directed by primary service Admission and Anticipated Discharge Date Admission Date: September 28, 2020 Supervising Physician Co-Signing Physician Notes I personally saw and evaluated the patient with Alexander Grey PA-C and agree with the assessment and plan. 64 yo female s/p subtotal colectomy with ileostomy for UC -CT images and results reviewed, no intraabdominal abscess noted, her WBC has been elevated in the past -Agree with GI consult to address her rectal bleeding, likely still from her UC -Unsure if she is developing a fistula lateral to her ileostomy, no history of bilious drainage from the area -No plans for any surgical intervention -If she does not improve would repeat CT with PO contrast to eval for leak and/or fistula -Will follow Subjective Patient reports no change from last evening. She has very minor abdominal pain without nausea or vomiting. She continues to have bloody stools. She was having low-grade fevers at time of mission which have resolved. She denies any shakes or chills. She is not short of breath. Physical Exam Constitutional: well developed and well nourished; no acute distress Eyes: no conjunctival abnormality ENMT: Ears: no hearing impairment Neck: trachea midline Respiratory: normal respiratory effort; no respiratory distress and no labored breathing Cardiovascular: Rate/Rhythm: regular rate and regular rhythm Gastrointestinal (Abdomen): Abdomen is soft and nondistended. Only minor pain with palpation. No rebound tenderness or guarding. Patient's ostomy appears patent and viable with brown stool noted in the collection bag. As previously noted there is what appears to be a fistulous track at about the 10 o'clock position. Skin: no rashes, warm and dry Neurologic: moves all extremities Psychiatric: A+Ox3, euthymic affect Results & Data ([facility]) Vital Signs (Past 12 Hours) Vital Signs Temp Pulse Pulse Resp BP BP Pulse Ox 09/29/20 04:04 36.3 C L 71 20 99/60 L 99 09/29/20 01:05 102 H 09/29/20 01:04 98 H 09/28/20 23:21 36.9 C 95 H 18 91/60 L 98 09/28/20 21:36 37.8 C H 95 H 18 82/55 L 98 09/28/20 20:30 102 H 21 99/66 L 09/28/20 20:00 103 H 23 104/56 L 09/28/20 19:30 109 H 23 97/57 L 99 09/28/20 19:00 118 H 22 89/57 L 100 09/28/20 18:30 120 H 21 104/61 100 PG Care Time/CCT Total # of Minutes Spent Total Time Spent with Patient: Total time spent is greater than 50% in coordination of care (as documented) at patient's floor/unit and/or counseling patient: Coding Level of Care Code 62425 Subseq Hosp Care Lvl 1 Diagnoses Status post colectomy Z90.49
[2020-09-29 06:41] LABS: BUN Creatinine Ratio 23.5 (10-20); Calcium 8.7 mg/dl (8.5-10.1); Creatinine Clr Calc Pharmacy 34.8 ml/min; Est GFR (African American) 49.9; Magnesium 1.6 mg/dl (1.8-2.4); Potassium 4.5 mmol/L (3.5-5.1)
[2020-09-29 06:44] LABS: C Reactive Protein 9.21 mg/dl (0-0.29); Phosphorus 5.5 mg/dl (2.5-4.9)
--- NOTE | 2020-09-29 07:54 | Hospitalist Progress Note ---
Date of Service September 29, 2020 Assessment & Plan (1) GI bleed: (2) Status post colectomy: (3) Ulcerative colitis: (4) Fistula: Persistent GI bleeding related to active UC despite colectomy. She is planned for an upcoming completion proctectomy. She appears inflamed with elevated ESR, CRP, WBC, thrombocytosis--this taken together with her physical exam findings is more suggestive of an IBD flare. However, with a concern for possible fistulous disease and possible pus coming from this area, infection is still a possibility. Will treat with broad spectrum abx at this time pending clinical improvement and negative cultures. Will defer continuation of steroids to GI who is consulted. General surgery is also consulted to assist with edith- ostomy wound. Will hold her Eliquis for now with continued active bleeding per rectum. She is anemic but not requiring transfusion at the time of admission. Trend CBC in am, noting 2-3 L of fluid prior to am draw as hemodilution will play a role in H/H levels most likely. (2) Anemia: 2/2/ GI blood losses. Trend CBC in as above. (3) Ulcerative colitis: total colectomy 07/17/20 with upcoming [place] [facility] Appreciate general surgery and GI thoughts on need to expedite this. Per surgery, no plan for any surgical intervention at this time, unsure if she is developing a fistula lateral to her ileostomy -If she does not improve recommend CT with p.o. contrast to evaluate for leak and/or fistula Per GI, continue Solu-Medrol 40 IV daily and continue IV antibiotics -Bleeding could be secondary to UC versus diversion colitis (4) DMII (diabetes mellitus, type 2): basal/bolus insulin while hospitalized. Monitor closely with steroids on board. (5) Fistula: periostomy wound described as and concerning for possible fistulous disease. Per General Surgery recommendations. (6) KOKI (acute kidney injury): likely related to recent poor PO intake. Cont IVF and repeat BMP in am. (7) DVT prophylaxis: SCDs for now, Eliquis placed on hold in setting of active bleeding. Full Code Dispo-uncertain, pending subspecialty recommendations. [place] [facility] She is from [facility]. Sister updated by phone at patient's request. Patient may give up her bed there in the meantime. Appreciate case management assistance with this. Admission and Anticipated Discharge Date Admission Date: September 28, 2020 Subjective Patient seen in follow-up of rectal bleed, UC, possible fistula Patient sitting up in bed, in no acute distress Reports daily rectal bleeding, amount depends Just prior to admission noticed possible fistula, the reason why she was brought into the hospital She has some abdominal pain, but says that she feels better now Currently denies any fevers or chills, chest pain or shortness of breath Seen by general surgery and GI Review of Systems Review of Systems: All systems reviewed & are unremarkable except as noted in HPI & below Constitutional: no fever and no chills Respiratory: no cough and no dyspnea Cardiovascular: no chest pain and no palpitations Gastrointestinal: + abdominal pain (improved); no nausea and no vomiting Physical Exam Physical Exam: Constitutional: Elderly female, sitting up in bed, in no acute distress,+ chronically ill appearing Eyes: + anicteric sclerae ENMT: NC/AT, EOMI, PERRL, oropharynx normal Neck: normal visual inspection Respiratory: normal respiratory effort, lungs clear to auscultation, no wheezing rhonchi or crackles noted Cardiovascular: RRR, no murmur, no edema Gastrointestinal (Abdomen): Inspection/Auscultation: abdomen not distended Percussion/Palpation: + abdomen tender and abdomen soft; no guarding and abdomen not rigid Colostomy in RUQ pink, normal appearing, brown semi-solid stool in bag, appears to have a fistulous track at about the 10 o'clock position. Skin: Warm, dry no rashes Neuro: Alert and oriented, no facial symmetry, speech fluent, moves extremities spontaneously Psychiatric: A+Ox3, euthymic affect Results & Data Results & Data ([facility]) Vital Signs (Past 12 Hours) Vital Signs Temp Pulse Pulse Resp BP BP Pulse Ox 09/29/20 07:13 36.4 C L 78 16 96/59 L 100 09/29/20 04:04 36.3 C L 71 20 99/60 L 99 09/29/20 01:05 102 H 09/29/20 01:04 98 H 09/28/20 23:21 36.9 C 95 H 18 91/60 L 98 09/28/20 21:36 37.8 C H 95 H 18 82/55 L 98 09/28/20 20:30 102 H 21 99/66 L 09/28/20 20:00 103 H 23 104/56 L Laboratory Results 09/29/20 09/29/20 09/29/20 Range/Units 07:29 07:06 05:29 WBC (4.8-10.8) K/uL RBC (4.2-5.4) M/uL Hgb (12.0-16.0) g/dL Hct (37-47) % MCV (80-100) fL MCH (25-34) pg MCHC (32-36) g/dL RDW Std Deviation (36.4-46.3) fL RDW Coeff of Conchis (11.5-14.5) % Plt Count (130-400) K/uL MPV (7.4-10.4) fL Immature Gran % (Auto) % Neut % (Auto) % Lymph % (Auto) % Stephens % (Auto) % Eos % (Auto) % Baso % (Auto) % Neut # (Auto) (1.4-6.5) K/uL Lymph # (Auto) (1.2-3.4) K/uL Stephens # (Auto) (0.11-0.59) K/uL Eos # (Auto) (0-0.5) K/uL Baso # (Auto) (0-0.2) K/uL Immature Gran # (Auto) (0.00-0.02) K/uL Neutrophils % (Manual) % Lymphocytes % (Manual) % Monocytes % (Manual) % Eosinophils % (Manual) % Basophils % (Manual) % Metamyelocytes % (Man) % Neutrophils # (Manual) (1.4-6.5) K/uL Total Absolute Neuts (1.4-6.5) K/uL Lymphocytes # (Manual) (1.2-3.4) K/uL Total Abs Lymphocytes (1.2-3.4) K/uL Monocytes # (Manual) (0.11-0.59) K/uL Eosinophils # (Manual) (0-0.5) K/uL Basophils # (Manual) (0-0.2) K/uL Metamyelocytes # (Man) (0-0) K/uL ESR (0-21) mm/hr PT (9.0-12.0) Seconds INR (0.9-1.1) APTT (21.0-31.0) Seconds PTT Ratio Sodium (136-145) mmol/L Potassium (3.5-5.1) mmol/L Chloride (98-107) mmol/L Carbon Dioxide (21-32) mmol/L Anion Gap (3-11) BUN (7-18) mg/dl Creatinine (0.6-1.2) mg/dl Est Cr Clr Drug Dosing ml/min Est GFR ( Amer) Est GFR (Non-Af Amer) BUN/Creatinine Ratio (10-20) Glucose (70-99) mg/dl POC Glucose 91 (70-99) mg/dl Estimat Average Glucose Pending Hemoglobin A1c Pending Calcium (8.5-10.1) mg/dl Phosphorus (2.5-4.9) mg/dl Magnesium (1.8-2.4) mg/dl Total Bilirubin (0.2-1) mg/dl AST (15-37) U/L ALT (12-78) U/L Alkaline Phosphatase (45-117) U/L Troponin I (0-0.045) ng/ml C-Reactive Protein (0-0.29) mg/dl Total Protein (6.4-8.2) gm/dl Albumin (3.4-5.0) gm/dl Globulin (2.5-4.0) gm/dl Albumin/Globulin Ratio (0.9-2) Stl C. diff Tox B Gene Pending COVID-19 Eval Order Hepatitis C Ab Screen SARS-CoV-2, RNA, NAAT (NEGATIVE) Blood Type Antibody Screen 09/29/20 09/29/20 09/29/20 Range/Units 05:29 05:29 05:29 WBC 15.80 H (4.8-10.8) K/uL RBC 3.23 L (4.2-5.4) M/uL Hgb 8.7 L (12.0-16.0) g/dL Hct 27.3 L (37-47) % MCV 84.5 (80-100) fL MCH 26.9 (25-34) pg MCHC 31.9 L (32-36) g/dL RDW Std Deviation 50.9 H (36.4-46.3) fL RDW Coeff of Conchis 16.3 H (11.5-14.5) % Plt Count 523 H (130-400) K/uL MPV 9.0 (7.4-10.4) fL Immature Gran % (Auto) 1.8 % Neut % (Auto) 90.5 % Lymph % (Auto) 5.6 % Stephens % (Auto) 1.9 % Eos % (Auto) 0.1 % Baso % (Auto) 0.1 % Neut # (Auto) 14.30 H (1.4-6.5) K/uL Lymph # (Auto) 0.89 L (1.2-3.4) K/uL Stephens # (Auto) 0.30 (0.11-0.59) K/uL Eos # (Auto) 0.01 (0-0.5) K/uL Baso # (Auto) 0.02 (0-0.2) K/uL Immature Gran # (Auto) 0.28 H (0.00-0.02) K/uL Neutrophils % (Manual) % Lymphocytes % (Manual) % Monocytes % (Manual) % Eosinophils % (Manual) % Basophils % (Manual) % Metamyelocytes % (Man) % Neutrophils # (Manual) (1.4-6.5) K/uL Total Absolute Neuts (1.4-6.5) K/uL Lymphocytes # (Manual) (1.2-3.4) K/uL Total Abs Lymphocytes (1.2-3.4) K/uL Monocytes # (Manual) (0.11-0.59) K/uL Eosinophils # (Manual) (0-0.5) K/uL Basophils # (Manual) (0-0.2) K/uL Metamyelocytes # (Man) (0-0) K/uL ESR 55 H (0-21) mm/hr PT (9.0-12.0) Seconds INR (0.9-1.1) APTT (21.0-31.0) Seconds PTT Ratio Sodium 136 (136-145) mmol/L Potassium 4.5 (3.5-5.1) mmol/L Chloride 109 H (98-107) mmol/L Carbon Dioxide 19 L (21-32) mmol/L Anion Gap 8.0 (3-11) BUN 31 H (7-18) mg/dl Creatinine 1.30 H (0.6-1.2) mg/dl Est Cr Clr Drug Dosing 34.8 ml/min Est GFR ( Amer) 49.9 Est GFR (Non-Af Amer) 43.0 BUN/Creatinine Ratio 23.5 H (10-20) Glucose 109 H (70-99) mg/dl POC Glucose (70-99) mg/dl Estimat Average Glucose Hemoglobin A1c Calcium 8.7 (8.5-10.1) mg/dl Phosphorus 5.5 H (2.5-4.9) mg/dl Magnesium 1.6 L (1.8-2.4) mg/dl Total Bilirubin (0.2-1) mg/dl AST (15-37) U/L ALT (12-78) U/L Alkaline Phosphatase (45-117) U/L Troponin I (0-0.045) ng/ml C-Reactive Protein 9.21 H (0-0.29) mg/dl Total Protein (6.4-8.2) gm/dl Albumin (3.4-5.0) gm/dl Globulin (2.5-4.0) gm/dl Albumin/Globulin Ratio (0.9-2) Stl C. diff Tox B Gene COVID-19 Eval Order Hepatitis C Ab Screen SARS-CoV-2, RNA, NAAT (NEGATIVE) Blood Type Antibody Screen 09/29/20 09/28/20 09/28/20 Range/Units 05:29 21:46 18:49 WBC (4.8-10.8) K/uL RBC (4.2-5.4) M/uL Hgb (12.0-16.0) g/dL Hct (37-47) % MCV (80-100) fL MCH (25-34) pg MCHC (32-36) g/dL RDW Std Deviation (36.4-46.3) fL RDW Coeff of Conchis (11.5-14.5) % Plt Count (130-400) K/uL MPV (7.4-10.4) fL Immature Gran % (Auto) % Neut % (Auto) % Lymph % (Auto) % Stephens % (Auto) % Eos % (Auto) % Baso % (Auto) % Neut # (Auto) (1.4-6.5) K/uL Lymph # (Auto) (1.2-3.4) K/uL Stephens # (Auto) (0.11-0.59) K/uL Eos # (Auto) (0-0.5) K/uL Baso # (Auto) (0-0.2) K/uL Immature Gran # (Auto) (0.00-0.02) K/uL Neutrophils % (Manual) % Lymphocytes % (Manual) % Monocytes % (Manual) % Eosinophils % (Manual) % Basophils % (Manual) % Metamyelocytes % (Man) % Neutrophils # (Manual) (1.4-6.5) K/uL Total Absolute Neuts (1.4-6.5) K/uL Lymphocytes # (Manual) (1.2-3.4) K/uL Total Abs Lymphocytes (1.2-3.4) K/uL Monocytes # (Manual) (0.11-0.59) K/uL Eosinophils # (Manual) (0-0.5) K/uL Basophils # (Manual) (0-0.2) K/uL Metamyelocytes # (Man) (0-0) K/uL ESR (0-21) mm/hr PT (9.0-12.0) Seconds INR (0.9-1.1) APTT (21.0-31.0) Seconds PTT Ratio Sodium (136-145) mmol/L Potassium (3.5-5.1) mmol/L Chloride (98-107) mmol/L Carbon Dioxide (21-32) mmol/L Anion Gap (3-11) BUN (7-18) mg/dl Creatinine (0.6-1.2) mg/dl Est Cr Clr Drug Dosing ml/min Est GFR ( Amer) Est GFR (Non-Af Amer) BUN/Creatinine Ratio (10-20) Glucose (70-99) mg/dl POC Glucose 98 (70-99) mg/dl Estimat Average Glucose Hemoglobin A1c Calcium (8.5-10.1) mg/dl Phosphorus (2.5-4.9) mg/dl Magnesium (1.8-2.4) mg/dl Total Bilirubin (0.2-1) mg/dl AST (15-37) U/L ALT (12-78) U/L Alkaline Phosphatase (45-117) U/L Troponin I (0-0.045) ng/ml C-Reactive Protein (0-0.29) mg/dl Total Protein (6.4-8.2) gm/dl Albumin (3.4-5.0) gm/dl Globulin (2.5-4.0) gm/dl Albumin/Globulin Ratio (0.9-2) Stl C. diff Tox B Gene COVID-19 Eval Order Hepatitis C Ab Screen Pending SARS-CoV-2, RNA, NAAT (NEGATIVE) Blood Type AB Negative Antibody Screen NEGATIVE 09/28/20 09/28/20 09/28/20 Range/Units 18:19 18:19 16:26 WBC (4.8-10.8) K/uL RBC (4.2-5.4) M/uL Hgb (12.0-16.0) g/dL Hct (37-47) % MCV (80-100) fL MCH (25-34) pg MCHC (32-36) g/dL RDW Std Deviation (36.4-46.3) fL RDW Coeff of Conchis (11.5-14.5) % Plt Count (130-400) K/uL MPV (7.4-10.4) fL Immature Gran % (Auto) % Neut % (Auto) % Lymph % (Auto) % Stephens % (Auto) % Eos % (Auto) % Baso % (Auto) % Neut # (Auto) (1.4-6.5) K/uL Lymph # (Auto) (1.2-3.4) K/uL Stephens # (Auto) (0.11-0.59) K/uL Eos # (Auto) (0-0.5) K/uL Baso # (Auto) (0-0.2) K/uL Immature Gran # (Auto) (0.00-0.02) K/uL Neutrophils % (Manual) % Lymphocytes % (Manual) % Monocytes % (Manual) % Eosinophils % (Manual) % Basophils % (Manual) % Metamyelocytes % (Man) % Neutrophils # (Manual) (1.4-6.5) K/uL Total Absolute Neuts (1.4-6.5) K/uL Lymphocytes # (Manual) (1.2-3.4) K/uL Total Abs Lymphocytes (1.2-3.4) K/uL Monocytes # (Manual) (0.11-0.59) K/uL Eosinophils # (Manual) (0-0.5) K/uL Basophils # (Manual) (0-0.2) K/uL Metamyelocytes # (Man) (0-0) K/uL ESR (0-21) mm/hr PT (9.0-12.0) Seconds INR (0.9-1.1) APTT (21.0-31.0) Seconds PTT Ratio Sodium 133 L (136-145) mmol/L Potassium 4.3 (3.5-5.1) mmol/L Chloride 105 (98-107) mmol/L Carbon Dioxide 18 L (21-32) mmol/L Anion Gap 11.0 (3-11) BUN 25 H (7-18) mg/dl Creatinine 1.36 H (0.6-1.2) mg/dl Est Cr Clr Drug Dosing 34.3 ml/min Est GFR ( Amer) 47.2 Est GFR (Non-Af Amer) 40.7 BUN/Creatinine Ratio 18.1 (10-20) Glucose 77 (70-99) mg/dl POC Glucose (70-99) mg/dl Estimat Average Glucose Hemoglobin A1c Calcium 8.8 (8.5-10.1) mg/dl Phosphorus (2.5-4.9) mg/dl Magnesium (1.8-2.4) mg/dl Total Bilirubin 0.4 (0.2-1) mg/dl AST 12 L (15-37) U/L ALT 6 L (12-78) U/L Alkaline Phosphatase 91 (45-117) U/L Troponin I < 0.015 (0-0.045) ng/ml C-Reactive Protein 5.68 H (0-0.29) mg/dl Total Protein 6.9 (6.4-8.2) gm/dl Albumin 2.3 L (3.4-5.0) gm/dl Globulin 4.6 H (2.5-4.0) gm/dl Albumin/Globulin Ratio 0.5 L (0.9-2) Stl C. diff Tox B Gene COVID-19 Eval [facility] C Ab Screen SARS-CoV-2, RNA, NAAT NEGATIVE (NEGATIVE) Blood Type Antibody Screen 09/28/20 09/28/20 09/28/20 Range/Units 16:26 16:26 16:26 WBC 14.49 H (4.8-10.8) K/uL RBC 3.57 L (4.2-5.4) M/uL Hgb 9.7 L (12.0-16.0) g/dL Hct 30.0 L (37-47) % MCV 84.0 (80-100) fL MCH 27.2 (25-34) pg MCHC 32.3 (32-36) g/dL RDW Std Deviation 50.0 H (36.4-46.3) fL RDW Coeff of Conchis 16.2 H (11.5-14.5) % Plt Count 617 H (130-400) K/uL MPV 8.9 (7.4-10.4) fL Immature Gran % (Auto) % Neut % (Auto) % Lymph % (Auto) % Stephens % (Auto) % Eos % (Auto) % Baso % (Auto) % Neut # (Auto) (1.4-6.5) K/uL Lymph # (Auto) (1.2-3.4) K/uL Stephens # (Auto) (0.11-0.59) K/uL Eos # (Auto) (0-0.5) K/uL Baso # (Auto) (0-0.2) K/uL Immature Gran # (Auto) (0.00-0.02) K/uL Neutrophils % (Manual) 90.5 % Lymphocytes % (Manual) 4.3 % Monocytes % (Manual) 1.7 % Eosinophils % (Manual) 0.9 % Basophils % (Manual) 1.7 % Metamyelocytes % (Man) 0.9 % Neutrophils # (Manual) 13.11 H (1.4-6.5) K/uL Total Absolute Neuts 13.11 H (1.4-6.5) K/uL Lymphocytes # (Manual) 0.62 L (1.2-3.4) K/uL Total Abs Lymphocytes 0.62 L (1.2-3.4) K/uL Monocytes # (Manual) 0.25 (0.11-0.59) K/uL Eosinophils # (Manual) 0.13 (0-0.5) K/uL Basophils # (Manual) 0.25 H (0-0.2) K/uL Metamyelocytes # (Man) 0.13 H (0-0) K/uL ESR 62 H (0-21) mm/hr PT 11.3 (9.0-12.0) Seconds INR 1.1 (0.9-1.1) APTT 26.5 (21.0-31.0) Seconds PTT Ratio 1.0 Sodium (136-145) mmol/L Potassium (3.5-5.1) mmol/L Chloride (98-107) mmol/L Carbon Dioxide (21-32) mmol/L Anion Gap (3-11) BUN (7-18) mg/dl Creatinine (0.6-1.2) mg/dl Est Cr Clr Drug Dosing ml/min Est GFR ( Amer) Est GFR (Non-Af Amer) BUN/Creatinine Ratio (10-20) Glucose (70-99) mg/dl POC Glucose (70-99) mg/dl Estimat Average Glucose Hemoglobin A1c Calcium (8.5-10.1) mg/dl Phosphorus (2.5-4.9) mg/dl Magnesium (1.8-2.4) mg/dl Total Bilirubin (0.2-1) mg/dl AST (15-37) U/L ALT (12-78) U/L Alkaline Phosphatase (45-117) U/L Troponin I (0-0.045) ng/ml C-Reactive Protein (0-0.29) mg/dl Total Protein (6.4-8.2) gm/dl Albumin (3.4-5.0) gm/dl Globulin (2.5-4.0) gm/dl Albumin/Globulin Ratio (0.9-2) Stl C. diff Tox B Gene COVID-19 Eval Order Hepatitis C Ab Screen SARS-CoV-2, RNA, NAAT (NEGATIVE) Blood Type Antibody Screen Medications Administered Current Inpatient Medications Acetaminophen (Acetaminophen 325 Mg Tab) 650 mg PO Q4H PRN PRN Reason: Pain or Fever Stop: 10/28/20 21:32 Last Admin: 09/28/20 21:55 Dose: 650 mg Documented by: Al Hydrox/Mg Hydrox/Simethicone (Aluminum/Magnesium Susp 30 Ml Udc) 15 ml PO Q4H PRN PRN Reason: Dyspepsia Stop: 10/28/20 21:32 Atorvastatin Calcium (Atorvastatin 40 Mg Tab) 40 mg PO HS [facility] Stop: 10/29/20 20:59 Citalopram Hydrobromide (Citalopram 20 Mg Tab) 10 mg PO QAM RACHEL Stop: 10/29/20 08:59 Dextrose (Dextrose 50% 50 Ml Syringe) 25 - 50 ml IV UD PRN; Protocol PRN Reason: Hypoglycemia Protocol Stop: 10/28/20 21:32 Dicyclomine HCl (Dicyclomine Hcl 10 Mg Cap) 10 mg PO AMHS PRN PRN Reason: Cramping or Diarrhea Stop: 10/28/20 23:19 Glucagon (Glucagon For Inj 1 Mg Vial) 1 mg SQ UD PRN; Protocol PRN Reason: Hypoglycemia Protocol Stop: 10/28/20 21:32 Glucose (Glucose 10 Tabs/Tube) 4 - 8 tabs PO UD PRN; Protocol PRN Reason: Hypoglycemia Protocol Stop: 10/28/20 21:32 Glucose (Glucose 40% Gel 15 Gm Tube) 15 - 30 gm PO UD PRN; Protocol PRN Reason: Hypoglycemia Protocol Stop: 10/28/20 21:32 Metronidazole (Flagyl) 500 mg in 100 mls @ 100 mls/hr IV Q8 [facility] Stop: 10/08/20 22:29 Last Infusion: 09/29/20 07:25 Dose: Infused Documented by: Cefepime HCl 2,000 mg/ Syringe 20 mls @ 5 mls/min IV Q24H RACHEL Stop: 10/08/20 22:59 Last Admin: 09/28/20 22:51 Dose: 5 mls/min Documented by: Sodium Chloride (Nss 1000ml) 1,000 mls @ 125 mls/hr IV .Q8H [facility] Stop: 10/28/20 22:44 Last Infusion: 09/29/20 02:10 Dose: 125 mls/hr Documented by: Insulin Aspart (Insulin Aspart 100 Units/Ml 3 Ml Pen) 0 units SC ACHS [facility] Stop: 10/28/20 21:32 Last Admin: 09/28/20 22:49 Dose: Not Given Documented by: Insulin Glargine (Insulin Glargine Solostar 100 Units/Ml 3 Ml Pen) 10 units SC BID [facility] Stop: 10/28/20 21:32 Last Admin: 09/28/20 22:50 Dose: 10 units Documented by: Levothyroxine Sodium (Levothyroxine Sodium 75 Mcg Tablet) 75 mcg PO DAILYBB [facility] Stop: 10/29/20 06:29 Last Admin: 09/29/20 05:57 Dose: 75 mcg Documented by: Miscellaneous (Carbohydrates For Hypoglycemia ) 15 - 30 gm PO UD PRN PRN Reason: Hypoglycemia Protocol Stop: 10/28/20 21:32 Miscellaneous Information (Cefepime Consult Active) 1 ea N/A UD PRN PRN Reason: Consult Stop: 10/28/20 22:30 Multivitamins/Minerals (Calcium 600mg + Vit D 400 Iu Tab) [facility]: 10/29/20 08:59 Oxycodone HCl (Oxycodone Hcl Ir 5 Mg Tab (Immediate Release)) 5 mg PO Q6H PRN PRN Reason: Pain, Severe Stop: 10/12/20 23:43 Pantoprazole Sodium (Pantoprazole 40 Mg Tab) 40 mg PO QAM [facility] Stop: 10/29/20 08:59 Polysaccharide Iron Complex (Iron Polysaccharide Complex 150 Mg Capsule) 150 mg PO TIDM RACHEL Stop: 10/29/20 07:59 Potassium Chloride (Potassium Chloride Pwd 20 Meq Pack) 20 meq PO TID RACHEL Stop: 10/29/20 08:59 Vitamin D (Cholecalciferol 1,000 Units 25 Mcg Tab) 1,000 units PO QAM [facility] Stop: 10/29/20 08:59 (1) GI bleed GI bleed type/associated pathology: unspecified gastrointestinal hemorrhage type Qualified Code(s): K92.2 - Gastrointestinal hemorrhage, unspecified (2) Ulcerative colitis Digestive disease complication type: unspecified complication Ulcerative colitis location: unspecified ulcerative colitis location Qualified Code(s): K51.919 - Ulcerative colitis, unspecified with unspecified complications
[2020-09-29] MEDS: INSULIN GLARGINE SOLOSTAR 100 UNITS/ML 3 ML PEN SC SCH ×2 (08:39→21:24)
[2020-09-29] MEDS: INSULIN ASPART 100 UNITS/ML 3 ML PEN SC SCH ×4 (08:39→21:22)
[2020-09-29] MEDS: CALCIUM 600MG + VIT D 400 IU TAB PO SCH (08:43)
[2020-09-29] MEDS: CITALOPRAM 20 MG TAB PO SCH (08:43)
[2020-09-29] MEDS: IRON POLYSACCHARIDE COMPLEX 150 MG CAPSULE PO SCH ×3 (08:43→17:13)
[2020-09-29] MEDS: CHOLECALCIFEROL 1,000 UNITS 25 MCG TAB PO SCH (08:44)
[2020-09-29] MEDS: PANTOprazole 40 MG TAB PO SCH (08:44)
[2020-09-29] MEDS: POTASSIUM CHLORIDE PWD 20 MEQ PACK PO SCH ×3 (08:44→21:20)
[2020-09-29] MEDS: ALBUMIN 25% 12.5 GM/50 ML VIAL IV SCH ×2 (09:00→09:53)
--- NOTE | 2020-09-29 09:15 | History & Physical Report ---
Date of Service September 29, 2020 Assessment & Plan (1) Status post colectomy: (2) Fistula: (3) RB (rectal bleeding): (4) Ulcerative colitis: Continue Solu-medrol 40 mg IV daily Bleeding could be secondary to UC versus Diversion colitis Will need Followup with Colorectal surgery at [place] for further care including upcoming Proctectomy Continue IV Abx as per the Hospitalist team Continue supportive care [facility] GI team will resume care in the AM Admission and Anticipated Discharge Date Admission Date: September 28, 2020 History of Present Illness Chief Complaint: Ulcerative colitis s/p Colectomy, Bright red blood per rectum Primary Care Provider: [facility] Daniela Carter is a 64 yo CF with an extensive PMHx that includes UC with severe disease activity requiring colectomy on 07/17/2020 with a planned proctectomy in October 2020 who presented to the ER last night with complaints of abdominal pain and bright red blood per rectum. Upon arrival to the ER, she was noted to have a Hgb of 9.7. She underwent CT imaging of the Abd/pelvis and was noted to have questionable fistulous disease at the level of her colostomy, and inflammation of the distal colon and rectum. She was subsequently admitted and started on IV antibiotics, and given a single dose of Solu-medrol 40 mg. At the time I saw her, she complained of mild generalized abdominal pain, 4/10 in intensity, improved from last night, non-radiating without alleviating or exacerbating factors. She states she is still have BRBPR. She does have a history of C-Diff colitis. She denies any fevers, chills, nausea, vomiting, hematemesis or other complaints at this time. Allergies Allergy/AdvReac Type Severity Reaction Status Date / Time aztreonam [From Azactam] Allergy Intermediate Flushed Verified 09/03/20 16:17 /itching dorzolamide Allergy Mild EYE LID Verified 09/03/20 14:47 SWELLING latanoprost Allergy Mild EYE LID Verified 09/03/20 14:47 SWELLING Penicillins Allergy Mild Rash Verified 09/03/20 14:47 timolol Allergy Mild EYE LID Verified 09/03/20 14:47 SWELLING amoxicillin [From Amoxil] Allergy Unknown Unknown Verified 09/03/20 16:17 brimonidine Allergy Unknown Unknown Verified 09/03/20 16:17 tafluprost Allergy Unknown Unknown Verified 09/03/20 16:17 thimerosal Allergy Unknown Unknown Verified 09/03/20 14:47 empagliflozin AdvReac Severe Confusion Verified 09/03/20 14:47 [From Jardiance] Home Medications Medication Instructions Recorded Confirmed Type calcium citrate-vitamin D3 1 tab PO QAM 05/12/18 09/28/20 History [Citracal-D3 Petites] cholecalciferol (vitamin D3) 1,000 unit PO QAM 05/12/18 09/28/20 History [Vitamin D3] levothyroxine 75 mcg PO QAM 05/12/18 09/28/20 History atorvastatin 40 mg PO HS 07/21/19 09/28/20 History potassium chloride [Klor-Con M20] 20 meq PO TIDM 07/21/19 09/28/20 History pantoprazole 40 mg PO QAM 02/15/20 09/28/20 History dicyclomine 10 mg PO AMHS PRN 03/08/20 09/28/20 History Tresiba FlexTouch U-200 30 unit SUBCUT QAM 07/01/20 09/28/20 History Med Pass Supplement 90 ml PO TID 08/10/20 09/28/20 History acetaminophen [Tylenol] 650 mg PO Q4H PRN MDD 3000 MG 08/10/20 09/28/20 History APAP/24 HOURS apixaban [Eliquis] 2.5 mg PO AMHS 08/10/20 09/28/20 History citalopram 10 mg PO QAM 08/10/20 09/28/20 History furosemide [Lasix] 40 mg PO QAM 08/10/20 09/28/20 History insulin aspart U-100 [Novolog 6 unit SUBCUT DIRECTED 08/10/20 09/28/20 History Flexpen U-100 Insulin] insulin aspart U-100 [Novolog 10 unit SUBCUT QDL 08/10/20 09/28/20 History Flexpen U-100 Insulin] [id number] carb-vit K 1 tab PO QAM 08/10/20 09/28/20 History [One-A-Day Womens Formula] oxycodone 5 mg PO Q6H PRN 08/10/20 09/28/20 History polysaccharide iron complex 150 mg PO WM 08/10/20 09/28/20 History [Ferrex 150] Rickymonik 1 cap PO TIDM 09/03/20 09/28/20 History [Probiotic Formula] Past Med/Surg History Medical History Acute hyponatremia Acute kidney injury Anemia Breast cancer, right 2012--SX & RADIATION, NO CHEMO C. 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) "Abnormal right breast mammogram Biopsy-positive for DCIS Status post lumpectomy with no residual tumor stage pTis NXMX Estrogen receptor positive, progesterone receptor positive Status post completion of radiation therapy 02/22/2013 received 3850 cGy utilizing accelerated partial breast treatment " Obesity (BMI 30-39.9) Surgical History H/O breast biopsy 2012--RIGHT MALIGNANT H/O lumpectomy History of appendectomy History of colonoscopy History of lumpectomy of right breast "+ HERBIE ER/NC + in 10/2012 s/p RT" History of tonsillectomy and adenoidectomy Hx of appendectomy S/P insertion of IVC (inferior vena caval) filter 03/29/[address] BUSTAMANTE Status post colectomy Status post glaucoma surgery BILT Family History Mother Family history of diabetes mellitus Heart disease Father Family history of diabetes mellitus Heart disease Sister Family history of diabetes mellitus Grandmother Family history of diabetes mellitus PATERNAL Uterine cancer Sister Crohn's disease Social History (Reviewed 03/20/21 @ 23:23 by ALYSSA Murillo Smoking Status: Never smoker Second Hand Exposure: No; Hx Alcohol Use: No Hx Substance Use: No Preferred Language: Divehi Communication Ability: Effective Visual Impairment: No Limitations Hearing Ability: Normal 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 Required: No Beliefs That Will Affect Care: Worship Worship Beliefs: Denominational marital status: Single Current Living Situation: Alone Current Living Situation Comment: alone How many Children do You have: 0 Feels Safe at Home: Yes Safety Concerns: Feels Safe At This Time Assistive Devices: Glasses and Walker Review of Systems All systems reviewed & are unremarkable except as noted in HPI & below Physical Exam Constitutional: + ill appearing (Chronic); no acute distress Eyes: + anicteric sclerae ENMT: Ears: no hearing impairment Neck: normal visual inspection Respiratory: normal respiratory effort, lungs clear to auscultation Cardiovascular: RRR, no murmur, no edema Gastrointestinal (Abdomen): Inspection/Auscultation: abdomen not distended Percussion/Palpation: + abdomen tender and abdomen soft; no guarding and abdomen not rigid Colostomy in RUQ pink, normal appearing, brown semi-solid stool in bag Skin: no rashes Psychiatric: A+Ox3, euthymic affect Results & Data ([facility]) Vital Signs (Past 12 Hours) Vital Signs Temp Pulse Pulse Resp BP Pulse Ox 09/29/20 08:08 65 09/29/20 07:13 36.4 C L 78 16 96/59 L 100 09/29/20 04:04 36.3 C L 71 20 99/60 L 99 09/29/20 01:05 102 H 09/29/20 01:04 98 H 09/28/20 23:21 36.9 C 95 H 18 91/60 L 98 09/28/20 21:36 37.8 C H 95 H 18 82/55 L 98 Code Status & VTE Plan VTE Prophylaxis Plan VTE Prophylaxis will be ordered: Yes Coding Level of Care Code 07854 Initial Inpt Care Lvl 3 Diagnoses Status post colectomy Z90.49 Fistula L98.8 RB (rectal bleeding) K62.5 Ulcerative colitis K51.919 Digestive disease complication type: unspecified complication Ulcerative colitis location: unspecified ulcerative colitis location Time Spent (min) 60 (1) Ulcerative colitis Digestive disease complication type: unspecified complication Ulcerative colitis location: unspecified ulcerative colitis location Qualified Code(s): K51.919 - Ulcerative colitis, unspecified with unspecified complications
--- NOTE | 2020-09-29 10:15 | Electrocardiogram Report ---
Test Reason : Blood Pressure : / mmHG Vent. Rate : 104 BPM Atrial Rate : 104 BPM P-R Int : 144 ms QRS Dur : 074 ms QT Int : 336 ms P-R-T Axes : 040 -21 032 degrees QTc Int : 441 ms Poor data quality, interpretation may be adversely affected Sinus tachycardia Low voltage QRS Possible Inferior infarct (cited on or before 28-SEP-2020) Poor R wave progression, consider anterior [place] vs. lead placement vs. LVH Abnormal ECG When compared with ECG of 03-SEP-2020 15:28, No significant change was found Confirmed by Sp Stinson ([id number]) on 09/29/2020 10:15:31 AM Referred By: Tanika Guerra Confirmed By:Sp Stinson
--- NOTE | 2020-09-29 10:39 | Electrocardiogram Report ---
Test Reason : Blood Pressure : / mmHG Vent. Rate : 062 BPM Atrial Rate : 062 BPM P-R Int : 160 ms QRS Dur : 066 ms QT Int : 446 ms P-R-T Axes : 025 000 021 degrees QTc Int : 452 ms Normal sinus rhythm Low voltage QRS Borderline ECG When compared with ECG of 28-SEP-2020 16:43, Vent. rate has decreased BY 42 BPM Minimal criteria for Anterior infarct are no longer Present Confirmed by Sp Stinson ([id number]) on 09/29/2020 10:39:08 AM Referred By: Tanika Guerra Confirmed By:Sp Stinson
[2020-09-29] MEDS: methylPREDNISolone 40 MG in SYRINGE 0 ML IV SCH (10:54)
[2020-09-29] MEDS: ACETAMINOPHEN 325 MG TAB PO PRN (12:56)
[2020-09-29] MEDS: SODIUM CHLORIDE 0.9% 1000ML 1,000 ML IV SCH ×2 (13:33)
[2020-09-29] MEDS: ATORVASTATIN 40 MG TAB PO SCH (21:19)
[2020-09-29] MEDS: CEFEPIME 2,000 MG in SYRINGE 0 ML IV SCH (22:27)
[2020-09-30] MEDS: SODIUM CHLORIDE 0.9% 1000ML 1,000 ML IV SCH ×3 (02:39→16:38)
[2020-09-30] MEDS: LEVOTHYROXINE SODIUM 75 MCG TABLET PO SCH (05:29)
[2020-09-30] MEDS: metroNIDAZOLE 500 MG/100 ML BAG IV SCH ×3 (05:29→21:58)
[2020-09-30 06:41] LABS: Hematocrit (blood only) 23.6 % (37-47); Hemoglobin 7.6 g/dL (12.0-16.0); Mean Corpuscular Hemoglobin 27.2 pg (25-34); Mean Corpuscular Hgb Conc 32.2 g/dL (32-36); Mean Corpuscular Volume 84.6 fL (80-100); Mean Platelet Volume 8.9 fL (7.4-10.4); Platelet Count 437 K/uL (130-400); RDW Coefficient of Variation 16.2 % (11.5-14.5); RDW Standard Deviation 50.9 fL (36.4-46.3); Red Blood Count 2.79 M/uL (4.2-5.4); White Blood Count 10.12 K/uL (4.8-10.8)
[2020-09-30 07:12] LABS: Estimated Average Glucose 128 mg/dl; Hemoglobin A1C 6.1 % (4.5-5.6)
[2020-09-30 07:34] LABS: BUN Creatinine Ratio 27.9 (10-20); Calcium 8.5 mg/dl (8.5-10.1); Creatinine Clr Calc Pharmacy 46.1 ml/min; Est GFR (African American) 68.5; Est GFR (Non-African American) 59.1; Magnesium 1.5 mg/dl (1.8-2.4); Phosphorus 3.2 mg/dl (2.5-4.9); Potassium 4.3 mmol/L (3.5-5.1)
--- NOTE | 2020-09-30 07:45 | Gastroenterology Progress Note ---
Date of Service September 30, 2020 Assessment & Plan (1) Status post colectomy: 64-year-old female, with history of severe refractory UC, status post subtotal colectomy 07/17/2020, with planned completion proctectomy 10/17/20, with ongoing rectal bleeding, discomfort since her surgery, at times requiring transfusion including today. Etiology of bleeding - ? secondary to UC vs diversion colitis. There is a tiny pinhole sized area near her ostomy of questionable etiology without active drainage/bleeding. She's tolerating a regular diet, abd is soft today and is hemodynamically stable; H&H as above; WBC is WNL. - Continue IV Solu-Medrol - Continue ABX per hospital team - Continue supportive care, trend H&H and transfuse as needed - Will look to discuss her case with her colorectal surgeon, to determine if it would be prudent to move up her surgery date given her ongoing symptoms (2) RB (rectal bleeding): (3) Ulcerative colitis: Admission and Anticipated Discharge Date Admission Date: September 28, 2020 Supervising Physician Co-Signing Physician Notes Attending attestation I have seen, examined this patient, and agree with the findings and above by our mid-level provider Ingris Tim, with the following additions: - Patient chronic issues since at least dec with 1-3 bouts of rectal bleeding. On abx, steroids, inflammatory markers elevated. - C-diff negative - I have reached out, but not heard back from Dr. El on if timing of surgery should be moved up - Clinically doing ok with diet, transfusion today Subjective Pt seen and examined, chart reviewed. Overnight, she continues with intermittent bouts of rectal bleeding in varying amounts, which seems to have continued since her surgery, along with intermittent abdominal and rectal pain, though she states no worse than baseline. No bleeding into her ostomy bag. Hgb 9 down to 7.6 today, with no BUN rise, and she is currently receiving PRBC transfusion. She is tolerating a regular diet, no nausea vomiting, chest pain or shortness of breath, fevers or chills. Review of Systems Constitutional: as per Subjective / HPI Eyes: no icterus Respiratory: no cough and no dyspnea Cardiovascular: no chest pain and no edema Gastrointestinal: as per Subjective / HPI Integumentary: no rash Hematologic / Lymphatic: no easy bleeding Physical Exam Constitutional: WD/WN, vitals as above Eyes: PERRL, conjunctivae normal, anicteric sclerae Respiratory: normal respiratory effort, lungs clear to auscultation Cardiovascular: RRR, no murmur, no edema Gastrointestinal (Abdomen): Inspection/Auscultation: normal bowel sounds; abdomen not distended Mild tenderness to the lower abdomen with no rebound or guarding, ostomy noted to the right lower quadrant, mucosa is pink, brown stool in bag. Just to the right of the ostomy, there is a pinhole-like area; ? no active bleeding, oozing Skin: no rashes, warm and dry Psychiatric: A+Ox3, euthymic affect Results & Data ([facility]) Vital Signs (Past 12 Hours) Vital Signs Temp Pulse Pulse Resp BP BP Pulse Ox 09/30/20 04:27 36.5 C 72 16 91/46 L 98 09/30/20 00:00 62 09/29/20 22:24 36.6 C 59 L 18 103/58 L 100 Laboratory Results 09/30/20 09/30/20 09/29/20 Range/Units 06:15 06:15 20:54 WBC 10.12 (4.8-10.8) K/uL RBC 2.79 L (4.2-5.4) M/uL Hgb 7.6 L (12.0-16.0) g/dL Hct 23.6 L (37-47) % MCV 84.6 (80-100) fL MCH 27.2 (25-34) pg MCHC 32.2 (32-36) g/dL RDW Std Deviation 50.9 H (36.4-46.3) fL RDW Coeff of Conchis 16.2 H (11.5-14.5) % Plt Count 437 H (130-400) K/uL MPV 8.9 (7.4-10.4) fL Sodium 137 (136-145) mmol/L Potassium 4.3 (3.5-5.1) mmol/L Chloride 113 H (98-107) mmol/L Carbon Dioxide 17 L (21-32) mmol/L Anion Gap 7.0 (3-11) BUN 28 H (7-18) mg/dl Creatinine 1.00 D (0.6-1.2) mg/dl Est Cr Clr Drug Dosing 46.1 ml/min Est GFR ( Amer) 68.5 Est GFR (Non-Af Amer) 59.1 BUN/Creatinine Ratio 27.9 H (10-20) Glucose 105 H (70-99) mg/dl POC Glucose 230 H (70-99) mg/dl Estimat Average Glucose mg/dl Hemoglobin A1c (4.5-5.6) % Calcium 8.5 (8.5-10.1) mg/dl Phosphorus 3.2 D (2.5-4.9) mg/dl Magnesium 1.5 L (1.8-2.4) mg/dl Stl C. diff Tox B Gene (Neg) Hepatitis C Ab Screen (Neg) 09/29/20 09/29/20 09/29/20 Range/Units 16:32 11:42 07:06 WBC (4.8-10.8) K/uL RBC (4.2-5.4) M/uL Hgb (12.0-16.0) g/dL Hct (37-47) % MCV (80-100) fL MCH (25-34) pg MCHC (32-36) g/dL RDW Std Deviation (36.4-46.3) fL RDW Coeff of Conchis (11.5-14.5) % Plt Count (130-400) K/uL MPV (7.4-10.4) fL Sodium (136-145) mmol/L Potassium (3.5-5.1) mmol/L Chloride (98-107) mmol/L Carbon Dioxide (21-32) mmol/L Anion Gap (3-11) BUN (7-18) mg/dl Creatinine (0.6-1.2) mg/dl Est Cr Clr Drug Dosing ml/min Est GFR ( Amer) Est GFR (Non-Af Amer) BUN/Creatinine Ratio (10-20) Glucose (70-99) mg/dl POC Glucose 134 H 113 H (70-99) mg/dl Estimat Average Glucose mg/dl Hemoglobin A1c (4.5-5.6) % Calcium (8.5-10.1) mg/dl Phosphorus (2.5-4.9) mg/dl Magnesium (1.8-2.4) mg/dl Stl C. diff Tox B Gene Negative Cdiff Gene (Neg) Hepatitis C Ab Screen (Neg) 09/29/20 09/29/20 Range/Units 05:29 05:29 WBC (4.8-10.8) K/uL RBC (4.2-5.4) M/uL Hgb (12.0-16.0) g/dL Hct (37-47) % MCV (80-100) fL MCH (25-34) pg MCHC (32-36) g/dL RDW Std Deviation (36.4-46.3) fL RDW Coeff of Conchis (11.5-14.5) % Plt Count (130-400) K/uL MPV (7.4-10.4) fL Sodium (136-145) mmol/L Potassium (3.5-5.1) mmol/L Chloride (98-107) mmol/L Carbon Dioxide (21-32) mmol/L Anion Gap (3-11) BUN (7-18) mg/dl Creatinine (0.6-1.2) mg/dl Est Cr Clr Drug Dosing ml/min Est GFR ( Amer) Est GFR (Non-Af Amer) BUN/Creatinine Ratio (10-20) Glucose (70-99) mg/dl POC Glucose (70-99) mg/dl Estimat Average Glucose 128 mg/dl Hemoglobin A1c 6.1 H (4.5-5.6) % Calcium (8.5-10.1) mg/dl Phosphorus (2.5-4.9) mg/dl Magnesium (1.8-2.4) mg/dl Stl C. diff Tox B Gene (Neg) Hepatitis C Ab Screen Neg (Neg) (1) Ulcerative colitis Digestive disease complication type: unspecified complication Ulcerative colitis location: unspecified ulcerative colitis location Qualified Code(s): K51.919 - Ulcerative colitis, unspecified with unspecified complications
--- NOTE | 2020-09-30 08:10 | Hospitalist Progress Note ---
Date of Service September 30, 2020 Assessment & Plan (1) GI bleed: (2) Status post colectomy: (3) Ulcerative colitis: (4) Fistula: Persistent GI bleeding related to active UC despite colectomy. She is planned for an upcoming completion proctectomy. She appears inflamed with elevated ESR, CRP, WBC, thrombocytosis--this taken together with her physical exam findings is more suggestive of an IBD flare. However, with a concern for possible fistulous disease and possible pus coming from this area, infection is still a possibility. Will treat with broad spectrum abx at this time pending clinical improvement and negative cultures. General surgery consulted to assist with edith-ostomy wound. Will hold her Eliquis for now with continued active bleeding per rectum. (2) Anemia: 2// GI blood losses. Trend CBC in as above. Received IV fluids on admission Had some bloody bowel movements yesterday Hemoglobin down to 7.6 (09/30), blood consent obtained, plan to transfuse 1 unit of PRBCs Continue to hold Eliquis (3) Ulcerative colitis: total colectomy 07/17/20 with upcoming completion proctectomy planned at [facility] early October. Appreciate general surgery and GI thoughts on need to expedite this White blood cell count elevated on admission, at 15,000, currently down to 10,0 00. Per surgery, no plan for any surgical intervention at this time -unsure if she is developing a fistula lateral to her ileostomy -If she does not improve recommend CT with p.o. contrast to evaluate for leak and/or fistula Per GI, continue Solu-Medrol 40 IV daily and continue IV antibiotics -Bleeding could be secondary to UC versus diversion colitis (4) DMII (diabetes mellitus, type 2): basal/bolus insulin while hospitalized. Monitor closely with steroids on board. (5) Fistula: periostomy wound described as and concerning for possible fistulous disease. Per General Surgery recommendations. (6) KOKI (acute kidney injury): likely related to recent poor PO intake. Cont IVF. Resolved , current Cr 1.0 (1.36 on admission) (7) DVT prophylaxis: SCDs for now, Eliquis placed on hold in setting of active bleeding. Full Code Dispo-uncertain, pending subspecialty recommendations. May transfer to [facility]. She is from [facility]. Sister updated by phone at patient's request. Patient may give up her bed there in the meantime. Appreciate case management assistance with this. Admission and Anticipated Discharge Date Admission Date: September 28, 2020 Subjective Patient seen in follow-up of rectal bleed, UC, possible fistula Patient sitting up in bed, in no acute distress Reports daily rectal bleeding, amount depends, had 2 bloody BMs yesterday Hgb 7.6 today -obtained blood consent, plan to transfuse 1 unit of PRBCs Just prior to admission noticed possible fistula, the reason why she was brought into the hospital She has some abdominal pain, but says that she feels somewhat better now Currently denies any fevers or chills, chest pain or shortness of breath General surgery and GI following Review of Systems Review of Systems: All systems reviewed & are unremarkable except as noted in HPI & below Constitutional: no fever and no chills Respiratory: no cough and no dyspnea Cardiovascular: no chest pain and no palpitations Gastrointestinal: + abdominal pain (improved) and + blood in stools; no nausea and no vomiting Physical Exam Physical Exam: Constitutional: Elderly female, sitting up in bed, in no acute distress,+ chronically ill appearing Eyes: + anicteric sclerae ENMT: NC/AT, EOMI, PERRL, oropharynx normal Neck: normal visual inspection Respiratory: normal respiratory effort, lungs clear to auscultation, no wheezing rhonchi or crackles noted Cardiovascular: RRR, no murmur, no edema Gastrointestinal (Abdomen): Inspection/Auscultation: abdomen not distended Percussion/Palpation: + abdomen tender and abdomen soft; no guarding and abdomen not rigid Colostomy in RUQ pink, normal appearing, brown semi-solid stool in bag, appears to have a fistulous track at about the 10 o'clock position. Skin: Warm, dry no rashes Neuro: Alert and oriented, no facial symmetry, speech fluent, moves extremities spontaneously Psychiatric: A+Ox3, euthymic affect Results & Data Results & Data ([facility]) Vital Signs (Past 12 Hours) Vital Signs Temp Pulse Pulse Resp BP BP Pulse Ox 09/30/20 07:59 36.6 C 75 16 90/52 L 98 09/30/20 04:27 36.5 C 72 16 91/46 L 98 09/30/20 00:00 62 09/29/20 22:24 36.6 C 59 L 18 103/58 L 100 Laboratory Results 09/30/20 09/30/20 09/30/20 Range/Units 07:55 06:15 06:15 WBC 10.12 (4.8-10.8) K/uL RBC 2.79 L (4.2-5.4) M/uL Hgb 7.6 L (12.0-16.0) g/dL Hct 23.6 L (37-47) % MCV 84.6 (80-100) fL MCH 27.2 (25-34) pg MCHC 32.2 (32-36) g/dL RDW Std Deviation 50.9 H (36.4-46.3) fL RDW Coeff of Conchis 16.2 H (11.5-14.5) % Plt Count 437 H (130-400) K/uL MPV 8.9 (7.4-10.4) fL Sodium 137 (136-145) mmol/L Potassium 4.3 (3.5-5.1) mmol/L Chloride 113 H (98-107) mmol/L Carbon Dioxide 17 L (21-32) mmol/L Anion Gap 7.0 (3-11) BUN 28 H (7-18) mg/dl Creatinine 1.00 D (0.6-1.2) mg/dl Est Cr Clr Drug Dosing 46.1 ml/min Est GFR ( Amer) 68.5 Est GFR (Non-Af Amer) 59.1 BUN/Creatinine Ratio 27.9 H (10-20) Glucose 105 H (70-99) mg/dl POC Glucose 90 (70-99) mg/dl Estimat Average Glucose mg/dl Hemoglobin A1c (4.5-5.6) % Calcium 8.5 (8.5-10.1) mg/dl Phosphorus 3.2 D (2.5-4.9) mg/dl Magnesium 1.5 L (1.8-2.4) mg/dl Stl C. diff Tox B Gene (Neg) Hepatitis C Ab Screen (Neg) 09/29/20 09/29/20 09/29/20 Range/Units 20:54 16:32 11:42 WBC (4.8-10.8) K/uL RBC (4.2-5.4) M/uL Hgb (12.0-16.0) g/dL Hct (37-47) % MCV (80-100) fL MCH (25-34) pg MCHC (32-36) g/dL RDW Std Deviation (36.4-46.3) fL RDW Coeff of Conchis (11.5-14.5) % Plt Count (130-400) K/uL MPV (7.4-10.4) fL Sodium (136-145) mmol/L Potassium (3.5-5.1) mmol/L Chloride (98-107) mmol/L Carbon Dioxide (21-32) mmol/L Anion Gap (3-11) BUN (7-18) mg/dl Creatinine (0.6-1.2) mg/dl Est Cr Clr Drug Dosing ml/min Est GFR ( Amer) Est GFR (Non-Af Amer) BUN/Creatinine Ratio (10-20) Glucose (70-99) mg/dl POC Glucose 230 H 134 H 113 H (70-99) mg/dl Estimat Average Glucose mg/dl Hemoglobin A1c (4.5-5.6) % Calcium (8.5-10.1) mg/dl Phosphorus (2.5-4.9) mg/dl Magnesium (1.8-2.4) mg/dl Stl C. diff Tox B Gene (Neg) Hepatitis C Ab Screen (Neg) 09/29/20 09/29/20 09/29/20 Range/Units 07:06 05:29 05:29 WBC (4.8-10.8) K/uL RBC (4.2-5.4) M/uL Hgb (12.0-16.0) g/dL Hct (37-47) % MCV (80-100) fL MCH (25-34) pg MCHC (32-36) g/dL RDW Std Deviation (36.4-46.3) fL RDW Coeff of Conchis (11.5-14.5) % Plt Count (130-400) K/uL MPV (7.4-10.4) fL Sodium (136-145) mmol/L Potassium (3.5-5.1) mmol/L Chloride (98-107) mmol/L Carbon Dioxide (21-32) mmol/L Anion Gap (3-11) BUN (7-18) mg/dl Creatinine (0.6-1.2) mg/dl Est Cr Clr Drug Dosing ml/min Est GFR ( Amer) Est GFR (Non-Af Amer) BUN/Creatinine Ratio (10-20) Glucose (70-99) mg/dl POC Glucose (70-99) mg/dl Estimat Average Glucose 128 mg/dl Hemoglobin A1c 6.1 H (4.5-5.6) % Calcium (8.5-10.1) mg/dl Phosphorus (2.5-4.9) mg/dl Magnesium (1.8-2.4) mg/dl Stl C. diff Tox B Gene Negative Cdiff Gene (Neg) Hepatitis C Ab Screen Neg (Neg) Medications Administered Current Inpatient Medications Acetaminophen (Acetaminophen 325 Mg Tab) 650 mg PO Q4H PRN PRN Reason: Pain or Fever Stop: 10/28/20 21:32 Last Admin: 09/29/20 12:56 Dose: 650 mg Documented by: Al Hydrox/Mg Hydrox/Simethicone (Aluminum/Magnesium Susp 30 Ml Udc) 15 ml PO Q4H PRN PRN Reason: Dyspepsia Stop: 10/28/20 21:32 Atorvastatin Calcium (Atorvastatin 40 Mg Tab) 40 mg PO HS RACHEL Stop: 10/29/20 20:59 Last Admin: 09/29/20 21:19 Dose: 40 mg Documented by: Citalopram Hydrobromide (Citalopram 20 Mg Tab) 10 mg PO QAM RACHEL Stop: 10/29/20 08:59 Last Admin: 09/29/20 08:43 Dose: 10 mg Documented by: Dextrose (Dextrose 50% 50 Ml Syringe) 25 - 50 ml IV UD PRN; Protocol PRN Reason: Hypoglycemia Protocol Stop: 10/28/20 21:32 Dicyclomine HCl (Dicyclomine Hcl 10 Mg Cap) 10 mg PO AMHS PRN PRN Reason: Cramping or Diarrhea Stop: 10/28/20 23:19 Last Admin: 09/29/20 08:44 Dose: 10 mg Documented by: Glucagon (Glucagon For Inj 1 Mg Vial) 1 mg SQ UD PRN; Protocol PRN Reason: Hypoglycemia Protocol Stop: 10/28/20 21:32 Glucose (Glucose 10 Tabs/Tube) 4 - 8 tabs PO UD PRN; Protocol PRN Reason: Hypoglycemia Protocol Stop: 10/28/20 21:32 Glucose (Glucose 40% Gel 15 Gm Tube) 15 - 30 gm PO UD PRN; Protocol PRN Reason: Hypoglycemia Protocol Stop: 10/28/20 21:32 Metronidazole (Flagyl) 500 mg in 100 mls @ 100 mls/hr IV Q8 [facility] Stop: 10/08/20 22:29 Last Infusion: 09/30/20 06:28 Dose: 100 mls/hr Documented by: Cefepime HCl 2,000 mg/ Syringe 20 mls @ 5 mls/min IV Q24H RACHEL; Protocol Stop: 10/08/20 22:59 Last Admin: 09/29/20 22:27 Dose: 5 mls/min Documented by: Sodium Chloride (Nss 1000ml) 1,000 mls @ 125 mls/hr IV .Q8H [facility] Stop: 10/28/20 22:44 Last Infusion: 09/30/20 05:51 Dose: 25 mls/hr Documented by: Methylprednisolone 40 mg/ (Syringe) 1 mls @ 1.5 mls/min IV DAILY RACHEL Stop: 10/29/20 09:29 Last Admin: 09/29/20 10:54 Dose: 1.5 mls/min Documented by: Albumin Human (Albumin 25%) 12.5 gm in 50 mls @ 50 mls/hr IV Q1H [facility] Stop: 09/30/20 09:59 Sodium Chloride (Nss 1000ml) 1,000 mls @ 80 mls/hr IV .[id number] [facility] Stop: 10/30/20 07:59 Magnesium Sulfate/Dextrose (Magnesium Sulfate / D5w) 1 gm in 100 mls @ 50 mls/hr IV ONE ONE Stop: 09/30/20 10:29 Insulin Aspart (Insulin Aspart 100 Units/Ml 3 Ml Pen) 0 units SC ACHS [facility] Stop: 10/28/20 21:32 Last Admin: 09/29/20 21:22 Dose: 3 units Documented by: Insulin Glargine (Insulin Glargine Solostar 100 Units/Ml 3 Ml Pen) 10 units SC BID [facility] Stop: 10/28/20 21:32 Last Admin: 09/29/20 21:24 Dose: 10 units Documented by: Levothyroxine Sodium (Levothyroxine Sodium 75 Mcg Tablet) 75 mcg PO DAILYBB [facility] Stop: 10/29/20 06:29 Last Admin: 09/30/20 05:29 Dose: 75 mcg Documented by: Miscellaneous (Carbohydrates For Hypoglycemia ) 15 - 30 gm PO UD PRN PRN Reason: Hypoglycemia Protocol Stop: 10/28/20 21:32 Miscellaneous Information (Cefepime Consult Active) 1 ea N/A UD PRN PRN Reason: Consult Stop: 10/28/20 22:30 Multivitamins/Minerals (Calcium 600mg + Vit D 400 Iu Tab) 1 tab PO QAM [facility] Stop: 10/29/20 08:59 Last Admin: 09/29/20 08:43 Dose: 1 tab Documented by: Oxycodone HCl (Oxycodone Hcl Ir 5 Mg Tab (Immediate Release)) 5 mg PO Q6H PRN PRN Reason: Pain, Severe Stop: 10/12/20 23:43 Last Admin: 09/29/20 08:40 Dose: 5 mg Documented by: Pantoprazole Sodium (Pantoprazole 40 Mg Tab) 40 mg PO QAM [facility] Stop: 10/29/20 08:59 Last Admin: 09/29/20 08:44 Dose: 40 mg Documented by: Polysaccharide Iron Complex (Iron Polysaccharide Complex 150 Mg Capsule) 150 mg PO TIDM [facility] Stop: 10/29/20 07:59 Last Admin: 09/29/20 17:13 Dose: 150 mg Documented by: Potassium Chloride (Potassium Chloride Pwd 20 Meq Pack) 20 meq PO TID [facility] Stop: 10/29/20 08:59 Last Admin: 09/29/20 21:20 Dose: 20 meq Documented by: Vitamin D (Cholecalciferol 1,000 Units 25 Mcg Tab) 1,000 units PO QAM [facility] Stop: 10/29/20 08:59 Last Admin: 09/29/20 08:44 Dose: 1,000 units Documented by: (1) GI bleed GI bleed type/associated pathology: unspecified gastrointestinal hemorrhage type Qualified Code(s): K92.2 - Gastrointestinal hemorrhage, unspecified (2) Ulcerative colitis Digestive disease complication type: unspecified complication Ulcerative colitis location: unspecified ulcerative colitis location Qualified Code(s): K51.919 - Ulcerative colitis, unspecified with unspecified complications
[2020-09-30] MEDS ORDERED: SODIUM CHLORIDE 0.9% 250 ML IV PRN (08:23)
[2020-09-30] MEDS ORDERED: MAGNESIUM SULFATE / D5W 1 GM/100 ML BAG IV ONE ×2 (08:30→12:00)
[2020-09-30] MEDS: IRON POLYSACCHARIDE COMPLEX 150 MG CAPSULE PO SCH ×3 (09:21→17:23)
[2020-09-30] MEDS: CALCIUM 600MG + VIT D 400 IU TAB PO SCH (09:23)
[2020-09-30] MEDS: CHOLECALCIFEROL 1,000 UNITS 25 MCG TAB PO SCH (09:24)
[2020-09-30] MEDS: CITALOPRAM 20 MG TAB PO SCH (09:25)
[2020-09-30] MEDS: PANTOprazole 40 MG TAB PO SCH (09:26)
[2020-09-30] MEDS: methylPREDNISolone 40 MG in SYRINGE 0 ML IV SCH (09:27)
[2020-09-30] MEDS: POTASSIUM CHLORIDE PWD 20 MEQ PACK PO SCH ×2 (09:27→13:57)
[2020-09-30] MEDS: INSULIN GLARGINE SOLOSTAR 100 UNITS/ML 3 ML PEN SC SCH ×2 (09:28→20:45)
[2020-09-30] MEDS: INSULIN ASPART 100 UNITS/ML 3 ML PEN SC SCH ×4 (09:40→20:45)
--- NOTE | 2020-09-30 10:47 | Surgery Progress Note ---
Date of Service September 30, 2020 Assessment & Plan (1) Ulcerative colitis: possible enterocutaneous fistula, not an acute surgical issue agree to [place] [facility] [place] given continued bleeding and already scheduled surgery Admission and Anticipated Discharge Date Admission Date: September 28, 2020 Supervising Physician Co-Signing Physician Notes I personally saw and evaluated the patient with Isaias Garza PA-C and agree with the assessment and plan. 64 yo female s/p subtotal colectomy with ileostomy for UC -She seems to be having a decent amount of bleeding per rectum -Agree with discussing case with colorectal surgery for further treatment plan -General surgical team will be here if needed, but will sign off at this time -Please call with any questions or concerns Subjective still having bleeding, first unit PRBCs infusing, some pain across mid abdomen but overall feeling better Physical Exam Gastrointestinal (Abdomen): Inspection/Auscultation: abdomen not distended Percussion/Palpation: + abdomen tender (minimal) and abdomen soft normal ileostomy output Results & Data ([facility]) Vital Signs (Past 12 Hours) Vital Signs Temp Pulse Pulse Resp BP BP Pulse Ox 09/30/20 09:27 36.6 C 80 18 96/59 L 09/30/20 07:59 36.6 C 75 16 90/52 L 98 09/30/20 04:27 36.5 C 72 16 91/46 L 98 09/30/20 00:00 62 PG Care Time/CCT Total # of Minutes Spent Total Time Spent with Patient: Total time spent is greater than 50% in coordination of care (as documented) at patient's floor/unit and/or counseling patient: Coding Level of Care Code 08993 Subs Hosp Care Lvl 1 Diagnoses Ulcerative colitis K51.919 Digestive disease complication type: unspecified complication Ulcerative colitis location: unspecified ulcerative colitis location (1) Ulcerative colitis Digestive disease complication type: unspecified complication Ulcerative colitis location: unspecified ulcerative colitis location Qualified Code(s): K51.919 - Ulcerative colitis, unspecified with unspecified complications
[2020-09-30] MEDS: ACETAMINOPHEN 325 MG TAB PO PRN (11:10)
[2020-09-30] MEDS: ALBUMIN 25% 12.5 GM/50 ML VIAL IV SCH ×4 (13:41→14:05)
[2020-09-30] MEDS: ATORVASTATIN 40 MG TAB PO SCH (20:45)
[2020-09-30] MEDS ORDERED: Nursing to Pharmacy Communication SCH (21:00)
[2020-09-30] MEDS: POTASSIUM CHLORIDE CRTAB 20 MEQ TABCR PO SCH (21:58)
[2020-09-30] MEDS: CEFEPIME 2,000 MG in SYRINGE 0 ML IV SCH (21:59)
[2020-10-01] MEDS: SODIUM CHLORIDE 0.9% 1000ML 1,000 ML IV SCH (03:56)
[2020-10-01] MEDS: metroNIDAZOLE 500 MG/100 ML BAG IV SCH ×2 (06:09→14:20)
[2020-10-01] MEDS: LEVOTHYROXINE SODIUM 75 MCG TABLET PO SCH (06:09)
--- NOTE | 2020-10-01 07:20 | Hospitalist Progress Note ---
Date of Service October 01, 2020 Assessment & Plan (1) GI bleed: (2) Status post colectomy: (3) Ulcerative colitis: (4) Fistula: Persistent GI bleeding related to active UC despite colectomy. She is planned for an upcoming completion proctectomy. She appears inflamed with elevated ESR, CRP, WBC, thrombocytosis--this taken together with her physical exam findings is more suggestive of an IBD flare. However, with a concern for possible fistulous disease and possible pus coming from this area, infection is still a possibility. Will treat with broad spectrum abx at this time pending clinical improvement and negative cultures. General surgery consulted to assist with edith-ostomy wound. Will hold her Eliquis for now with continued active bleeding per rectum. Anemia: Acute blood loss anemia 2/2/ GI blood losses. Trend CBC in as above. Received IV fluids on admission Had some bloody bowel movements while inpt Hemoglobin down to 7.6 (09/30), blood consent obtained, transfused 1 unit of PRBCs Current Hgb 9.2, stable (10/01) Continue to hold Eliquis Monitor H&H Ulcerative colitis: total colectomy 07/17/20 with upcoming completion proctectomy planned at [facility] [place] early October. Appreciate general surgery and GI thoughts on need to expedite this WBC count elevated on admission, at 15,000, currently down to 10,000. Per surgery, no plan for any surgical intervention at this time -unsure if she is developing a fistula lateral to her ileostomy -If she does not improve recommend CT with p.o. contrast to evaluate for leak and/or fistula Per GI, continue Solu-Medrol 40 IV daily and continue IV antibiotics -Bleeding could be secondary to UC versus diversion colitis -GI in the process of contacting colorectal surgery in [place] - on 09/30 -Possibly secondary to hypomagnesemia -Mag 1.5, replete magnesium and monitor -Patient asymptomatic -Continue to closely monitor on telemetry, currently in sinus 60-80s (4) DMII (diabetes mellitus, type 2): basal/bolus insulin while hospitalized. Monitor closely with steroids on board. (5) Fistula: periostomy wound described as and concerning for possible fistulous d isease. Per General Surgery recommendations. (6) KOKI (acute kidney injury): likely related to recent poor PO intake and GI losses. Cont IVF. Resolved , current Cr 0.9 (1.36 on admission) (7) DVT prophylaxis: SCDs for now, Eliquis placed on hold in setting of active bleeding. Full Code Dispo-uncertain, pending subspecialty recommendations. May transfer to [facility]. She is from [facility]. Sister updated by phone at patient's request. Patient may give up her bed there in the meantime. Appreciate case management assistance with this. Admission and Anticipated Discharge Date Admission Date: September 28, 2020 Subjective Patient seen in follow-up of rectal bleed, UC, possible fistula Patient sitting up in bed, in no acute distress Reports daily rectal bleeding, amount depends, had last one early this AM, reports bloody Hgb 7.6 yesterday - transfused 1 unit of PRBCs, now Hgb stable at 9.2 Just prior to admission noticed possible fistula, the reason why she was brought into the hospital She has some abdominal pain, but says that she feels somewhat better now Currently denies any fevers or chills, chest pain or shortness of breath General surgery and GI following Review of Systems Review of Systems: All systems reviewed & are unremarkable except as noted in HPI & below Constitutional: no fever and no chills Respiratory: no cough and no dyspnea Cardiovascular: no chest pain and no palpitations Gastrointestinal: + blood in stools; no abdominal pain, no nausea and no vomiting Physical Exam Physical Exam: Constitutional: Elderly female, sitting up in bed, in no acute distress,+ chronically ill appearing Eyes: + anicteric sclerae ENMT: NC/AT, EOMI, PERRL, oropharynx normal Neck: normal visual inspection Respiratory: normal respiratory effort, lungs clear to auscultation, no wheezing rhonchi or crackles noted Cardiovascular: RRR, no murmur, no edema Gastrointestinal (Abdomen): Inspection/Auscultation: abdomen not distended Percussion/Palpation: + abdomen tender and abdomen soft; no guarding and abdomen not rigid Colostomy in RUQ pink, normal appearing, brown semi-solid stool in bag, appears to have a fistulous track at about the 10 o'clock position. Skin: Warm, dry no rashes Neuro: Alert and oriented, no facial symmetry, speech fluent, moves extremities spontaneously Psychiatric: A+Ox3, euthymic affect Results & Data Results & Data ([facility]) Vital Signs (Past 12 Hours) Vital Signs Temp Pulse Pulse Resp BP BP Pulse Ox 10/01/20 03:21 36.5 C 56 L 18 102/62 99 10/01/20 01:24 62 09/30/20 23:21 36.7 C 57 L 18 102/54 L 99 Laboratory Results 10/01/20 10/01/20 10/01/20 Range/Units 07:46 07:18 07:18 WBC 10.32 (4.8-10.8) K/uL RBC 3.39 L (4.2-5.4) M/uL Hgb 9.2 L (12.0-16.0) g/dL Hct 28.2 L (37-47) % MCV 83.2 (80-100) fL MCH 27.1 (25-34) pg MCHC 32.6 (32-36) g/dL RDW Std Deviation 52.0 H (36.4-46.3) fL RDW Coeff of Conchis 16.9 H (11.5-14.5) % Plt Count 379 (130-400) K/uL MPV 8.7 (7.4-10.4) fL ESR (0-21) mm/hr Sodium 140 (136-145) mmol/L Potassium 4.3 (3.5-5.1) mmol/L Chloride 115 H (98-107) mmol/L Carbon Dioxide 17 L (21-32) mmol/L Anion Gap 7.0 (3-11) BUN 27 H (7-18) mg/dl Creatinine 0.88 (0.6-1.2) mg/dl Est Cr Clr Drug Dosing 52.0 ml/min Est GFR ( Amer) 79.9 Est GFR (Non-Af Amer) 68.9 BUN/Creatinine Ratio 30.7 H (10-20) Glucose 94 (70-99) mg/dl POC Glucose 97 (70-99) mg/dl Calcium 9.0 (8.5-10.1) mg/dl Phosphorus Pending Magnesium 2.2 (1.8-2.4) mg/dl C-Reactive Protein (0-0.29) mg/dl Blood Type Antibody Screen Crossmatch 09/30/20 09/30/20 09/30/20 Range/Units 20:24 16:36 11:46 WBC (4.8-10.8) K/uL RBC (4.2-5.4) M/uL Hgb (12.0-16.0) g/dL Hct (37-47) % MCV (80-100) fL MCH (25-34) pg MCHC (32-36) g/dL RDW Std Deviation (36.4-46.3) fL RDW Coeff of Conchis (11.5-14.5) % Plt Count (130-400) K/uL MPV (7.4-10.4) fL ESR (0-21) mm/hr Sodium (136-145) mmol/L Potassium (3.5-5.1) mmol/L Chloride (98-107) mmol/L Carbon Dioxide (21-32) mmol/L Anion Gap (3-11) BUN (7-18) mg/dl Creatinine (0.6-1.2) mg/dl Est Cr Clr Drug Dosing ml/min Est GFR ( Amer) Est GFR (Non-Af Amer) BUN/Creatinine Ratio (10-20) Glucose (70-99) mg/dl POC Glucose 233 H 238 H 121 H (70-99) mg/dl Calcium (8.5-10.1) mg/dl Phosphorus Magnesium (1.8-2.4) mg/dl C-Reactive Protein (0-0.29) mg/dl Blood Type Antibody Screen Crossmatch 09/30/20 09/30/20 09/28/20 Range/Units 06:15 06:15 18:49 WBC (4.8-10.8) K/uL RBC (4.2-5.4) M/uL Hgb (12.0-16.0) g/dL Hct (37-47) % MCV (80-100) fL MCH (25-34) pg MCHC (32-36) g/dL RDW Std Deviation (36.4-46.3) fL RDW Coeff of Conchis (11.5-14.5) % Plt Count (130-400) K/uL MPV (7.4-10.4) fL ESR 33 H (0-21) mm/hr Sodium (136-145) mmol/L Potassium (3.5-5.1) mmol/L Chloride (98-107) mmol/L Carbon Dioxide (21-32) mmol/L Anion Gap (3-11) BUN (7-18) mg/dl Creatinine (0.6-1.2) mg/dl Est Cr Clr Drug Dosing ml/min Est GFR ( Amer) Est GFR (Non-Af Amer) BUN/Creatinine Ratio (10-20) Glucose (70-99) mg/dl POC Glucose (70-99) mg/dl Calcium (8.5-10.1) mg/dl Phosphorus Magnesium (1.8-2.4) mg/dl C-Reactive Protein 3.63 H (0-0.29) mg/dl Blood Type AB Negative Antibody Screen NEGATIVE Crossmatch See Detail Medications Administered Current Inpatient Medications Acetaminophen (Acetaminophen 325 Mg Tab) 650 mg PO Q4H PRN PRN Reason: Pain or Fever Stop: 10/28/20 21:32 Last Admin: 09/30/20 11:10 Dose: 650 mg Documented by: Al Hydrox/Mg Hydrox/Simethicone (Aluminum/Magnesium Susp 30 Ml Udc) 15 ml PO Q4H PRN PRN Reason: Dyspepsia Stop: 10/28/20 21:32 Atorvastatin Calcium (Atorvastatin 40 Mg Tab) 40 mg PO HS [facility] Stop: 10/29/20 20:59 Last Admin: 09/30/20 20:45 Dose: 40 mg Documented by: Citalopram Hydrobromide (Citalopram 20 Mg Tab) 10 mg PO QAM [facility] Stop: 10/29/20 08:59 Last Admin: 09/30/20 09:25 Dose: 10 mg Documented by: Dextrose (Dextrose 50% 50 Ml Syringe) 25 - 50 ml IV UD PRN; Protocol PRN Reason: Hypoglycemia Protocol Stop: 10/28/20 21:32 Dicyclomine HCl (Dicyclomine Hcl 10 Mg Cap) 10 mg PO AMHS PRN PRN Reason: Cramping or Diarrhea Stop: 10/28/20 23:19 Last Admin: 09/29/20 08:44 Dose: 10 mg Documented by: Glucagon (Glucagon For Inj 1 Mg Vial) 1 mg SQ UD PRN; Protocol PRN Reason: Hypoglycemia Protocol Stop: 10/28/20 21:32 Glucose (Glucose 10 Tabs/Tube) 4 - 8 tabs PO UD PRN; Protocol PRN Reason: Hypoglycemia Protocol Stop: 10/28/20 21:32 Glucose (Glucose 40% Gel 15 Gm Tube) 15 - 30 gm PO UD PRN; Protocol PRN Reason: Hypoglycemia Protocol Stop: 10/28/20 21:32 Metronidazole (Flagyl) 500 mg in 100 mls @ 100 mls/hr IV Q8 [facility] Stop: 10/08/20 22:29 Last Infusion: 10/01/20 07:53 Dose: Infused Documented by: Cefepime HCl 2,000 mg/ Syringe 20 mls @ 5 mls/min IV Q24H [facility]; Protocol Stop: 10/08/20 22:59 Last Admin: 09/30/20 21:59 Dose: 5 mls/min Documented by: Sodium Chloride (Nss 1000ml) 1,000 mls @ 80 mls/hr IV .[id number] [facility] Stop: 10/30/20 07:59 Last Admin: 10/01/20 03:56 Dose: 80 mls/hr Documented by: Methylprednisolone 40 mg/ (Syringe) 0.64 mls @ 1.5 mls/min IV DAILY [facility] Stop: 10/29/20 08:59 Insulin Aspart (Insulin Aspart 100 Units/Ml 3 Ml Pen) 0 units SC ACHS [facility] Stop: 10/28/20 21:32 Last Admin: 09/30/20 20:45 Dose: 2 units Documented by: Insulin Glargine (Insulin Glargine Solostar 100 Units/Ml 3 Ml Pen) 10 units SC BID [facility] Stop: 10/28/20 21:32 Last Admin: 09/30/20 20:45 Dose: 10 units Documented by: Levothyroxine Sodium (Levothyroxine Sodium 75 Mcg Tablet) 75 mcg PO DAILYBB [facility] Stop: 10/29/20 06:29 Last Admin: 10/01/20 06:09 Dose: 75 mcg Documented by: Miscellaneous (Carbohydrates For Hypoglycemia ) 15 - 30 gm PO UD PRN PRN Reason: Hypoglycemia Protocol Stop: 10/28/20 21:32 Miscellaneous Information (Cefepime Consult Active) 1 ea N/A UD PRN PRN Reason: Consult Stop: 10/28/20 22:30 Multivitamins/Minerals (Calcium 600mg + Vit D 400 Iu Tab) 1 tab PO QAM [facility]ACHEL Stop: 10/29/20 08:59 Last Admin: 09/30/20 09:23 Dose: 1 tab Documented by: Oxycodone HCl (Oxycodone Hcl Ir 5 Mg Tab (Immediate Release)) 5 mg PO Q6H PRN PRN Reason: Pain, Severe Stop: 10/12/20 23:43 Last Admin: 09/29/20 08:40 Dose: 5 mg Documented by: Pantoprazole Sodium (Pantoprazole 40 Mg Tab) 40 mg PO QAM [facility] Stop: 10/29/20 08:59 Last Admin: 09/30/20 09:26 Dose: 40 mg Documented by: Polysaccharide Iron Complex (Iron Polysaccharide Complex 150 Mg Capsule) 150 mg PO TIDM [facility] Stop: 10/29/20 07:59 Last Admin: 09/30/20 17:23 Dose: 150 mg Documented by: Potassium Chloride (Potassium Chloride Crtab 20 Meq Tabcr) 20 meq PO TID [facility] Stop: 10/30/20 21:29 Last Admin: 09/30/20 21:58 Dose: 20 meq Documented by: Vitamin D (Cholecalciferol 1,000 Units 25 Mcg Tab) [facility] Stop: 10/29/20 08:59 Last Admin: 09/30/20 09:24 Dose: 1,000 units Documented by: (1) GI bleed GI bleed type/associated pathology: unspecified gastrointestinal hemorrhage type Qualified Code(s): K92.2 - Gastrointestinal hemorrhage, unspecified (2) Ulcerative colitis Digestive disease complication type: unspecified complication Ulcerative colitis location: unspecified ulcerative colitis location Qualified Code(s): K51.919 - Ulcerative colitis, unspecified with unspecified complications
[2020-10-01 07:43] LABS: Hematocrit (blood only) 28.2 % (37-47); Hemoglobin 9.2 g/dL (12.0-16.0); Mean Corpuscular Hemoglobin 27.1 pg (25-34); Mean Corpuscular Hgb Conc 32.6 g/dL (32-36); Mean Corpuscular Volume 83.2 fL (80-100); Mean Platelet Volume 8.7 fL (7.4-10.4); Platelet Count 379 K/uL (130-400); RDW Coefficient of Variation 16.9 % (11.5-14.5); Red Blood Count 3.39 M/uL (4.2-5.4); White Blood Count 10.32 K/uL (4.8-10.8)
[2020-10-01 08:16] LABS: BUN Creatinine Ratio 30.7 (10-20); Est GFR (African American) 79.9; Est GFR (Non-African American) 68.9; Magnesium 2.2 mg/dl (1.8-2.4); Potassium 4.3 mmol/L (3.5-5.1)
--- NOTE | 2020-10-01 08:23 | Gastroenterology Progress Note ---
Date of Service October 01, 2020 Assessment & Plan (1) Status post colectomy: 64-year-old female, with history of severe refractory UC, status post subtotal colectomy 07/17/2020, with planned completion proctectomy 10/17/20, experiencing ongoing refractory symptoms of rectal bleeding, discomfort since her surgery with elevated inflammatory markers intermittent anemia drop in H&H requiring intermittent transfusions. C. diff was neg. HGB and BUN stable today. She appears fatigued but abd soft, tolerating a regular diet. - After speaking with her colorectal surgeon in [place], given her refractory symptoms, would recommend pt be transferred to [facility] to facilitate expediting her surgery, aiming to get procedure done toward the weekend. Pt is agreeable; I updated pt's hospitalist who will work to arrange transfer - Would continue IV Solu-Medrol - Continue ABX per hospital team - Continue supportive care, trend H&H and transfuse as needed - Pt to have PT consult; we did encourage her to be OOB as tolerated to optimize her underlying physical health prior to surgery Admission and Anticipated Discharge Date Admission Date: September 28, 2020 Supervising Physician Co-Signing Physician Notes Attending attestation I have seen, examined this patient, and agree with the findings and above by our mid-level provider Ms. Nasima Amado, with the following additions: patient stable, continue with chronic issues. discussed with colorectal in [place], who suggested to transfer for completion colectomy. Subjective Pt seen and examined, chart reviewed. Overnight she feels about the same; still having intermittent bouts of hematochezia and abd discomfort. HGB today stable at 9.2 after pRBC transfusion yesterday. Tolerating regular diet. No n/v, fever, chills, melena. Review of Systems Constitutional: no fever and no body aches Respiratory: no cough and no dyspnea Cardiovascular: no chest pain and no edema Gastrointestinal: as per Subjective / HPI Integumentary: no rash Physical Exam Constitutional: WD/WN, vitals as above Eyes: PERRL, conjunctivae normal, anicteric sclerae Respiratory: normal respiratory effort, lungs clear to auscultation Cardiovascular: RRR, no murmur, no edema Gastrointestinal (Abdomen): Inspection/Auscultation: normal bowel sounds; abdomen not distended ostomy RLQ is pink, with brown stool in bag, no blood Skin: no rashes, warm and dry Psychiatric: A+Ox3, euthymic affect Results & Data ([facility]) Vital Signs (Past 12 Hours) Vital Signs Temp Pulse Pulse Resp BP BP Pulse Ox 10/01/20 08:06 36.7 C 58 L 18 109/66 98 10/01/20 07:28 64 10/01/20 03:21 36.5 C 56 L 18 102/62 99 10/01/20 01:24 62 09/30/20 23:21 36.7 C 57 L 18 102/54 L 99 Laboratory Results 10/01/20 10/01/20 10/01/20 Range/Units 07:46 07:18 07:18 WBC 10.32 (4.8-10.8) K/uL RBC 3.39 L (4.2-5.4) M/uL Hgb 9.2 L (12.0-16.0) g/dL Hct 28.2 L (37-47) % MCV 83.2 (80-100) fL MCH 27.1 (25-34) pg MCHC 32.6 (32-36) g/dL RDW Std Deviation 52.0 H (36.4-46.3) fL RDW Coeff of Conchis 16.9 H (11.5-14.5) % Plt Count 379 (130-400) K/uL MPV 8.7 (7.4-10.4) fL ESR (0-21) mm/hr Sodium 140 (136-145) mmol/L Potassium 4.3 (3.5-5.1) mmol/L Chloride 115 H (98-107) mmol/L Carbon Dioxide 17 L (21-32) mmol/L Anion Gap 7.0 (3-11) BUN 27 H (7-18) mg/dl Creatinine 0.88 (0.6-1.2) mg/dl Est Cr Clr Drug Dosing 52.0 ml/min Est GFR ( Amer) 79.9 Est GFR (Non-Af Amer) 68.9 BUN/Creatinine Ratio 30.7 H (10-20) Glucose 94 (70-99) mg/dl POC Glucose 97 (70-99) mg/dl Calcium 9.0 (8.5-10.1) mg/dl Phosphorus Pending Magnesium 2.2 (1.8-2.4) mg/dl C-Reactive Protein (0-0.29) mg/dl Blood Type Antibody Screen Crossmatch 09/30/20 09/30/20 09/30/20 Range/Units 20:24 16:36 11:46 WBC (4.8-10.8) K/uL RBC (4.2-5.4) M/uL Hgb (12.0-16.0) g/dL Hct (37-47) % MCV (80-100) fL MCH (25-34) pg MCHC (32-36) g/dL RDW Std Deviation (36.4-46.3) fL RDW Coeff of Conchis (11.5-14.5) % Plt Count (130-400) K/uL MPV (7.4-10.4) fL ESR (0-21) mm/hr Sodium (136-145) mmol/L Potassium (3.5-5.1) mmol/L Chloride (98-107) mmol/L Carbon Dioxide (21-32) mmol/L Anion Gap (3-11) BUN (7-18) mg/dl Creatinine (0.6-1.2) mg/dl Est Cr Clr Drug Dosing ml/min Est GFR ( Amer) Est GFR (Non-Af Amer) BUN/Creatinine Ratio (10-20) Glucose (70-99) mg/dl POC Glucose 233 H 238 H 121 H (70-99) mg/dl Calcium (8.5-10.1) mg/dl Phosphorus Magnesium (1.8-2.4) mg/dl C-Reactive Protein (0-0.29) mg/dl Blood Type Antibody Screen Crossmatch 09/30/20 09/30/20 09/28/20 Range/Units 06:15 06:15 18:49 WBC (4.8-10.8) K/uL RBC (4.2-5.4) M/uL Hgb (12.0-16.0) g/dL Hct (37-47) % MCV (80-100) fL MCH (25-34) pg MCHC (32-36) g/dL RDW Std Deviation (36.4-46.3) fL RDW Coeff of Conchis (11.5-14.5) % Plt Count (130-400) K/uL MPV (7.4-10.4) fL ESR 33 H (0-21) mm/hr Sodium (136-145) mmol/L Potassium (3.5-5.1) mmol/L Chloride (98-107) mmol/L Carbon Dioxide (21-32) mmol/L Anion Gap (3-11) BUN (7-18) mg/dl Creatinine (0.6-1.2) mg/dl Est Cr Clr Drug Dosing ml/min Est GFR ( Amer) Est GFR (Non-Af Amer) BUN/Creatinine Ratio (10-20) Glucose (70-99) mg/dl POC Glucose (70-99) mg/dl Calcium (8.5-10.1) mg/dl Phosphorus Magnesium (1.8-2.4) mg/dl C-Reactive Protein 3.63 H (0-0.29) mg/dl Blood Type AB Negative Antibody Screen NEGATIVE Crossmatch See Detail
[2020-10-01 08:27] LABS: Phosphorus 1.5 mg/dl (2.5-4.9)
[2020-10-01] MEDS ORDERED: methylPREDNISolone 40 MG in SYRINGE 0 ML IV SCH (09:00)
[2020-10-01] MEDS: IRON POLYSACCHARIDE COMPLEX 150 MG CAPSULE PO SCH ×3 (09:33→17:24)
[2020-10-01] MEDS: CALCIUM 600MG + VIT D 400 IU TAB PO SCH (09:33)
[2020-10-01] MEDS: POTASSIUM CHLORIDE CRTAB 20 MEQ TABCR PO SCH ×2 (09:34→13:39)
[2020-10-01] MEDS: CITALOPRAM 20 MG TAB PO SCH (09:35)
[2020-10-01] MEDS: PANTOprazole 40 MG TAB PO SCH (09:36)
[2020-10-01] MEDS: CHOLECALCIFEROL 1,000 UNITS 25 MCG TAB PO SCH (09:37)
[2020-10-01] MEDS ORDERED: SODIUM PHOSPHATE 3 MMOL/1 ML INFUSION IV STA (09:40)
[2020-10-01] MEDS: INSULIN ASPART 100 UNITS/ML 3 ML PEN SC SCH ×3 (09:40→17:23)
[2020-10-01] MEDS: INSULIN GLARGINE SOLOSTAR 100 UNITS/ML 3 ML PEN SC SCH (09:41)
[2020-10-01] MEDS ORDERED: SODIUM PHOSPHATE 12 MMOL in SODIUM CHLORIDE 0.9% 250 ML IV ONE (10:00)
--- NOTE | 2020-10-01 11:04 | Discharge Summary ---
Date of Service October 01, 2020 Admission HPI Per Admitting Provider Daniela Carter is a 64 yo CF with an extensive PMHx that includes UC with severe disease activity requiring colectomy on 07/17/2020 with a planned proctectomy in October 2020 who presented to the ER last night with complaints of abdominal pain and bright red blood per rectum. Upon arrival to the ER, she was noted to have a Hgb of 9.7. She underwent CT imaging of the Abd/pelvis and was noted to have questionable fistulous disease at the level of her colostomy, and inflammation of the distal colon and rectum. She was subsequently admitted and started on IV antibiotics, and given a single dose of Solu-medrol 40 mg. At the time I saw her, she complained of mild generalized abdominal pain, 4/10 in intensity, improved from last night, non-radiating without alleviating or exacerbating factors. She states she is still have BRBPR. She does have a history of C-Diff colitis. She denies any fevers, chills, nausea, vomiting, hematemesis or other complaints at this time. Admission Exam Per Admitting Provider CONSTITUTIONAL: WNWD, vitals as above, generally ill-appearing EYES: normal conjunctivae, no scleral icterus ENT: external ear and nose normal, oropharynx clear, MMM RESPIRATORY: clear to auscultation bilaterally, no crackles, rales or wheezes, normal respiratory effort CARDIOVASCULAR: regular rate and rhythm, S1 and 2 heard without murmurs, gallops or rubs, no JVD, no peripheral edema GASTROINTESTINAL: soft, diffusely tender, nondistended. Prior IR drain site on LLQ healed up, no drainage. Ostomy bag intact, appears to be covering small opening, but no evidence of surrounding erythema, ostomy is pink, brown fecal material in bag, no blood seen. MUSCULOSKELETAL: strength 5/5 throughout, head is normocephalic and atraumatic SKIN: warm and dry NEUROLOGIC: CN 2-12 grossly intact, normal cognition, normal speech, no gross focal deficits. PSYCHIATRIC: alert cooperative and oriented to person, place and time. Principal Diagnosis Ulcerative colitis, refractory, GI bleed Acute blood loss anemia Possible fistula Discharge Exam Constitutional: Elderly female, sitting up in bed, in no acute distress,+ chronically ill appearing Eyes: + anicteric sclerae ENMT: NC/AT, EOMI, PERRL, oropharynx normal Neck: normal visual inspection Respiratory: normal respiratory effort, lungs clear to auscultation, no wheezing rhonchi or crackles noted Cardiovascular: RRR, no murmur, no edema Gastrointestinal (Abdomen): Inspection/Auscultation: abdomen not distended Percussion/Palpation: + abdomen tender and abdomen soft; no guarding and abdomen not rigid Colostomy on right, normal appearing, brown semi-solid stool in bag, appears to have a fistulous track at about the 10 o'clock position. Skin: Warm, dry no rashes Neuro: Alert and oriented, no facial symmetry, speech fluent, moves extremities spontaneously Psychiatric: A+Ox3, euthymic affect Discharge Data Allergies Allergy/AdvReac Type Severity Reaction Status Date / Time aztreonam [From Azactam] Allergy Intermediate Flushed Verified 09/03/20 16:17 /itching dorzolamide Allergy Mild EYE LID Verified 09/03/20 14:47 SWELLING latanoprost Allergy Mild EYE LID Verified 09/03/20 14:47 SWELLING Penicillins Allergy Mild Rash Verified 09/03/20 14:47 timolol Allergy Mild EYE LID Verified 09/03/20 14:47 SWELLING amoxicillin [From Amoxil] Allergy Unknown Unknown Verified 09/03/20 16:17 brimonidine Allergy Unknown Unknown Verified 09/03/20 16:17 tafluprost Allergy Unknown Unknown Verified 09/03/20 16:17 thimerosal Allergy Unknown Unknown Verified 09/03/20 14:47 empagliflozin AdvReac Severe Confusion Verified 09/03/20 14:47 [From Jardiance] Consultations 09/28/20 19:24 Consult Gastroenterology Stat Consult General Surgery Stat ED Decision to Admit Stat Ordered Studies 09/28/20 16:24 CT abd pelvis wo con Stat FINDINGS: The lung bases are essentially clear. No pneumoperitoneum. No pneumatosis. No suspicious lytic or blastic osseous lesions. There is a 3 cm stone within the gallbladder neck. However, no gallbladder wall thickening. The unenhanced pancreas, spleen, adrenal glands, and pancreas are unremarkable. There is a punctate nonobstructing stone within the right kidney. There are few punctate nonobstructing stones within the left kidney. No ureteral stones. No hydronephrosis. The bladder is unremarkable. The uterus and bilateral adnexa are within normal limits. An IVC filter is unchanged in position. No retroperitoneal lymphadenopathy. Calcified plaque within the normal caliber abdominal aorta. There again noted postoperative changes consistent with a subtotal colectomy and a right lower quadrant ileostomy. No dilated loops of bowel to suggest an obstruction. The focal area of inflammatory change within the left lateral midabdomen persists. This is lateral to the ileocolonic anastomosis. Small foci of gas and fluid within the left lower quadrant abutting the anterior abdominal wall appear to represent loops of small bowel. No definite residual abscess identified on this noncontrast study. The left lower quadrant percutaneous drain has been removed in the interval. There is moderate thickening of the residual distal colon and rectum with pericolonic fat stranding. This has slightly progressed and is consistent with a nonspecific colitis. Inflammatory changes at the right lower quadrant ileostomy have improved. IMPRESSION: 1. Moderate thickening of the residual distal colon and rectum with pericolonic fat stranding. This has slightly progressed and is consistent with a nonspecific colitis. 2. Postoperative changes consistent with a prior subtotal colectomy and right lower quadrant ileostomy. 3. The focal area of inflammatory change within the left lateral midabdomen persists. This is lateral to the ileocolonic anastomosis. Small foci of gas and fluid within the left lower quadrant abutting the anterior abdominal wall appear to represent loops of small bowel. No definite residual abscess identified on this noncontrast study. The left lower quadrant percutaneous drain has been removed in the interval. 4. Bilateral nephrolithiasis. No ureteral stones. No hydronephrosis. 5. A 3 cm gallstone is seen at the gallbladder neck. However, no gallbladder wall thickening. Hospital Course (1) GI bleed: (2) Status post colectomy: (3) Ulcerative colitis: (4) Fistula: Persistent GI bleeding related to active UC despite colectomy. She is planned for an upcoming completion proctectomy. She appears inflamed with elevated ESR, CRP, WBC, thrombocytosis--this taken together with her physical exam findings is more suggestive of an IBD flare. However, with a concern for possible fistulous disease and possible pus coming from this area, infection is still a possibility. Will treat with broad spectrum abx at this time pending clinical improvement and negative cultures. General surgery consulted to assist with edith-ostomy wound. Will hold her Eliquis for now with continued active bleeding per rectum. Anemia: Acute blood loss anemia 2/2/ GI blood losses. Trend CBC in as above. Received IV fluids on admission Had some bloody bowel movements while inpt Hemoglobin down to 7.6 (09/30), blood consent obtained, transfused 1 unit of PRBCs Current Hgb 9.2, stable (10/01) Continue to hold Eliquis Monitor H&H Ulcerative colitis: total colectomy 07/17/20 with upcoming completion proctectomy planned at [facility] early October. Appreciate general surgery and GI thoughts on need to expedite th is WBC count elevated on admission, at 15,000, currently down to 10,000. Per surgery, no plan for any surgical intervention at this time -unsure if she is developing a fistula lateral to her ileostomy -If she does not improve recommend CT with p.o. contrast to evaluate for leak and/or fistula Per GI, continue Solu-Medrol 40 IV daily and continue IV antibiotics -Bleeding could be secondary to UC versus diversion colitis -GI contacted colorectal surgery in [place], Dr. El, and agreed patient to be transferred to [place] for expedited surgery Nonsustained VT - on 09/30 -Possibly secondary to hypomagnesemia -Mag 1.5, replete magnesium and monitor -Patient asymptomatic -Continue to closely monitor on telemetry, currently in sinus 60-80s (4) DMII (diabetes mellitus, type 2): basal/bolus insulin while hospitalized. Monitor closely with steroids on board. (5) Fistula: periostomy wound described as and concerning for possible fistulous disease. Per General Surgery recommendations. (6) KOKI (acute kidney injury): likely related to recent poor PO intake and GI losses. Cont IVF. Resolved , current Cr 0.9 (1.36 on admission) (7) DVT prophylaxis: SCDs for now, Eliquis placed on hold in setting of active bleeding. Full Code Disposition : pt is from [facility]. Plan to transfer patient to [facility] for expedited colorectal surgery. Total Time Total Time Spent Total Time Spent (In Minutes): 35 Total Time Includes: Examination of the Patient, Discharge Planning, Medication Reconciliation and Communication With Other Providers Discharge Plan Discharge Items Patient Disposition: Transfer Acute Care Hospital Reason For Visit: POST OP WOUND DRAINAGE Discharge Diagnosis: Ulcerative colitis, refractory, GI bleed Acute blood loss anemia Possible fistula Activity: Per Instructions section Non-emergency contact: Surgeon and Specialist Call non-emergency contact if: you have any medication questions Follow-up/Referrals: Tanika Orozco [Primary Care Provider] - Diet: Carb Consistent or DM2 and Low Fiber Addtl Attending Provider Instructions: Patient to be transferred to the [facility], for expedited colorectal surgery, with Dr. El. The plan was discussed with GI, Dr. Greco here at [facility] and Dr. El (at [place]). Pending Studies at Discharge: No Stand-Alone Forms: My [facility] Skilled Items Patient informed of condition?: Yes DNR: No Discharge Level of Care: Other Communicable Disease: No Discharge Prognosis: Stable Lines: Peripheral IV Urinary Catheter: No Medications and DC Order Prescriptions: Continued dicyclomine 10 mg capsule 10 mg PO AMHS PRN (Reason: Cramping or Diarrhea) RF: 0 Tresiba FlexTouch U-200 200 unit/mL (3 mL) insulin pen 30 unit SUBCUT QAM RF: 0 levothyroxine 75 mcg Tablet 75 mcg PO QAM RF: 0 cholecalciferol (vitamin D3) [Vitamin D3] 1,000 unit Tablet 1,000 unit PO QAM RF: 0 calcium citrate-vitamin D3 [Citracal-D3 Petites] 200 mg calcium -250 unit Tablet 1 tab PO QAM RF: 0 atorvastatin 40 mg tablet 40 mg PO HS RF: 0 potassium chloride [Klor-Con M20] 20 mEq Tablet,Er Particles/Crystals 20 meq PO TIDM RF: 0 pantoprazole 40 mg tablet,delayed release (DR/EC) 40 mg PO QAM RF: 0 acetaminophen [Tylenol] 325 mg Tablet 650 mg PO Q4H MDD 3000 MG APAP/24 HOURS PRN (Reason: Fever Or Pain) RF: 0 citalopram 10 mg Tablet 10 mg PO QAM RF: 0 polysaccharide iron complex [Ferrex 150] 150 mg iron Capsule 150 mg PO WM RF: 0 oxycodone 5 mg Tablet 5 mg PO Q6H PRN (Reason: Pain, Severe) RF: 0 insulin aspart U-100 [Novolog Flexpen U-100 Insulin] 100 unit/mL (3 mL) Insulin Pen 6 unit SUBCUT DIRECTED RF: 0 insulin aspart U-100 [Novolog Flexpen U-100 Insulin] 100 unit/mL (3 mL) Insulin Pen 10 unit SUBCUT QDL RF: 0 One-A-Day Womens Formula 18 mg iron-400 mcg-500 mg Tablet 1 tab PO QAM RF: 0 Med Pass Supplement 90 ml PO TID RF: 0 Discontinued furosemide [Lasix] 40 mg Tablet 40 mg PO QAM RF: 0 Eliquis 2.5 mg Tablet 2.5 mg PO AMHS RF: 0 Probiotic Formula 10 billion cell (2 billion ea) Capsule 1 cap PO TIDM RF: 0 Discharge Orders: Discharge Order (Routine); Ordered 10/01/20 Ordered By: Kirit [place]/Other Patient Handouts: Managing Type 2 Diabetes, Managing Diabetes: The A1C Test Admission Data Admit Date/Time: 09/28/20 20:20 Attending Provider: Kirit Alvarez Admit Provider: Julisa Montgomery Primary Care Provider: Tanika Orozco Other Providers: Pascual Torrez ; Matthew Tesfaye ; Julisa Montgomery
== END 2020-10-01 19:53 | disposition short-term general hospital (02) | DRG 386 ==
LOC: ED 14:30 → SUATTDRO 20:20 → 2N 20:20

== ENCOUNTER 2020-12-01 15:51 | Inpatient (IN) ==
[2020-12-01] MEDS ORDERED: SODIUM CHLORIDE 0.9% 500 ML IV SCH (16:15)
[2020-12-01] MEDS ORDERED: SODIUM CHLORIDE 0.9% 1000ML 1,000 ML IV SCH (16:15)
--- NOTE | 2020-12-01 16:38 | Emergency Department Note ---
Impression & Plan Acute renal failure, Weakness, Acute UTI (urinary tract infection) ED Provider Note INFORMANT: Patient ED PROVIDER(S): Rahul Mares MD CHIEF COMPLAINT: Weakness PLAN: Disposition: Admitted Condition: Good Outpatient prescription management: none Referral: None MEDICAL DECISION MAKING: Patient presented to emergency department because of progressive weakness and decreased p.o. intake. A work-up was obtained pain. The patient had an IV established. She was hydrated. Her chemistry panel and CBC revealed a mild leukocytosis and acute renal failure. Urinalysis was ordered however the patient did not provide a sample right away. She underwent CT imaging. Surgical changes were noted. No acute process was outlined. The patient was reassessed. She will need further management in the hospital. Consultation was made with Dr. Inder Gonzales, [facility] hospitalist service. He evaluated the patient in the ER and admitted her for further management. After the patient was admitted a urinalysis obtained here it did finally get processed and revealed signs concerning for UTI. I did talk with him and he will follow up on this result and treat her with an antibiotic. Triage Nursing notes reviewed and agree them. Vital Signs: reviewed and remarkable for borderline low blood pressure Differential diagnosis: Infection, dehydration, metabolic abnormality, hypo/hyperglycemia, electrolyte disturbance, anemia, hypoxia, cardiac sources, intracerebral event, toxicologic, neurologic, as well as other pathologies. Diagnostics interpreted by me: ECG: Rate: 93 Rhythm:Normal sinus [place]: Left axis deviation QRS:Normal ST segements:No elevation or depression Other:No PACs or PVCs. Poor R wave progression. Cardiac Monitoring: Cardiac monitoring ordered by me: The patient was placed on continuous cardiac monitoring and observed. It revealed a normal sinus rhythm at 92 beats per minute without ectopy or evidence of dysrhythmia. Imaging studies: CT scan of the abdomen pelvis reveals postsurgical changes. I refer you to the EMR for further details. HPI: The patient is a 65 year old female who presents to the Emergency Room with complaints of weakness. This started around 3 months ago and is progressing. The patient also notes the following associated symptoms, poor po intake, lack of energy, mild abdominal pain. The patient has found no relieving factors. Current pain is rated as 3/10. Pt feels depressed. No reported SI or HI. Pt denies LOC, headache, fevers, chills, diaphoresis, visual changes, neck pain, chest pain, breathing difficulties, nausea, vomiting, back pain, melena, hematochezia, urinary symptoms, numbness, lymphadenopathy, rash, or other complaints. ROS: See above HPI for pertinent positives & negatives. A total of 10 systems reviewed and were otherwise negative. PAST MEDICAL HISTORY:See Below , Crohn's PAST SURGICAL HISTORY:See Below, proctectomy, Ileostomy FAMILY HISTORY:See Below SOCIAL HISTORY:See Below, no ETOH HOME MEDICATIONS:See Below ALLERGIES:See Below VITALS:See Below PHYSICAL EXAMINATION: GENERAL: Awake, alert, depressed-appearing, in no distress HENT: Normocephalic, atraumatic. Oropharynx unremarkable. EYES: Normal conjunctiva. Sclera non-icteric. NECK: Inspection normal. Non-tender. Supple. No nuchal rigidity. FROM. No masses. RESPIRATORY: Clear to auscultation. No wheezes. No rales. Normal respiratory effort. CARDIAC: Normal rate. Normal rhythm. No murmurs. No rubs. Extremities warm and well perfused. Pulses equal. No JVD. GI: Soft, non-distended. Mild mid abdominal tenderness to palpation. No rebound or guarding. No masses. Ileostomy in the RLQ. RECTAL: Deferred. MUSCULOSKELETAL: Atraumatic. Chest examination reveals no tenderness. The back is symmetrical on inspection without obvious abnormality. There is no CVA tenderness to palpation. No joint edema. LOWER EXTREMITIES: Calves are equal size bilaterally and non-tender. No edema. No discoloration. NEURO: Normal sensorium. No sensory or motor deficits noted. SKIN: No rash or jaundice noted. Rahul Mares MD Past Med/Surg History Medical History (Updated 12/01/20 @ 23:50 by Rahul Mares MD) Acute hyponatremia Acute kidney injury Anemia Breast cancer, right 2012--SX & RADIATION, NO CHEMO C. 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) "Abnormal right breast mammogram Biopsy-positive for DCIS Status post lumpectomy with no residual tumor stage pTis NXMX Estrogen receptor positive, progesterone receptor positive Status post completion of radiation therapy 02/22/2013 received 3850 cGy utilizing accelerated partial breast treatment " Obesity (BMI 30-39.9) Surgical History H/O breast biopsy 2012--RIGHT MALIGNANT H/O lumpectomy History of appendectomy History of colonoscopy History of lumpectomy of right breast "+ HERBIE ER/SC + in 10/2012 s/p RT" History of tonsillectomy and adenoidectomy Hx of appendectomy S/P insertion of IVC (inferior vena caval) filter 03/29/[address] BUSTAMANTE Status post colectomy Status post glaucoma surgery BILT Family History Mother Family history of diabetes mellitus Heart disease Father Family history of diabetes mellitus Heart disease Sister Family history of diabetes mellitus Grandmother Family history of diabetes mellitus PATERNAL Uterine cancer Sister Crohn's disease Social History Smoking Status: Never smoker Second Hand Exposure: No; Hx Alcohol Use: No Hx Substance Use: No Preferred Language: Wolof Communication Ability: Effective Visual Impairment: No Limitations Hearing Ability: Normal Registry Nurse Required: No Beliefs That Will Affect Care: None marital status: Single Current Living Situation: Alone Current Living Situation Comment: alone How many Children do You have: 0 Other Information That Helps Us Care for You: No Feels Safe at Home: Yes Safety Concerns: Feels Safe At This Time Assistive Devices: Glasses Allergies Allergies Allergy/AdvReac Type Severity Reaction Status Date / Time aztreonam [From Azactam] Allergy Intermediate Flushed Verified 12/01/20 16:55 /itching dorzolamide Allergy Mild EYE LID Verified 12/01/20 16:55 SWELLING latanoprost Allergy Mild EYE LID Verified 12/01/20 16:55 SWELLING Penicillins Allergy Mild Rash Verified 12/01/20 16:55 timolol Allergy Mild EYE LID Verified 12/01/20 16:55 SWELLING amoxicillin [From Amoxil] Allergy Unknown Unknown Verified 12/01/20 16:55 brimonidine Allergy Unknown Unknown Verified 12/01/20 16:55 tafluprost Allergy Unknown Unknown Verified 12/01/20 16:55 thimerosal Allergy Unknown Unknown Verified 12/01/20 16:55 empagliflozin AdvReac Severe Confusion Verified 12/01/20 16:55 [From Jardiance] Home Meds Home Medications Medication Instructions Recorded Confirmed calcium citrate-vitamin D3 1 tab PO QAM 05/12/18 12/01/20 [Citracal-D3 Petites] cholecalciferol (vitamin D3) 1,000 unit PO QAM 05/12/18 12/01/20 [Vitamin D3] levothyroxine 75 mcg PO QAM 05/12/18 12/01/20 atorvastatin 40 mg PO HS 07/21/19 12/01/20 pantoprazole 40 mg PO QAM 02/15/20 12/01/20 Tresiba FlexTouch U-200 30 unit SUBCUT QAM 07/01/20 12/01/20 One-A-Day Womens Formula 1 tab PO QAM 08/10/20 12/01/20 acetaminophen [Tylenol] 650 mg PO Q4H PRN MDD 3000 MG 08/10/20 12/01/20 APAP/24 HOURS citalopram 10 mg PO QAM 08/10/20 12/01/20 oxycodone 5 mg PO Q6H PRN 08/10/20 12/01/20 polysaccharide iron complex 150 mg PO BID 08/10/20 12/01/20 [Ferrex 150] apixaban [Eliquis] 2.5 mg PO BID 12/01/20 12/01/20 cyanocobalamin (vitamin B-12) 1,000 mcg PO DAILY 12/01/20 12/01/20 [Vitamin B-12] folic acid 1 mg PO DAILY 12/01/20 12/01/20 ondansetron 4 mg PO Q6H PRN 12/01/20 12/01/20 Results & Data (ED) Vital Signs Vital Signs - 24 hr 12/01/20 15:56 12/01/20 16:00 12/01/20 16:04 Temperature 36.7 C Temperature Source Oral Pulse Rate 95 H 98 H 96 H Pulse Rate from SpO2 Sensor 97 H 96 H Pulse Rhythm Regular Pulse Strength Normal Respiratory Rate 18 23 23 Respiratory Effort / Characteristics Non-Labored Respiratory Depth Normal Respiratory Pattern Regular Blood Pressure 96/69 L 96/69 L Blood Pressure Mean 78 78 Blood Pressure Position Sitting Pulse Oximetry 98 97 99 Oxygen Delivery Method Room Air Sepsis Recent Fever Within 48 Hours No Sepsis New/Unexplained Change in Mental Status No Sepsis Action Taken by Nursing No Action Required 12/01/20 16:27 12/01/20 16:30 12/01/20 17:00 Temperature Temperature Source Pulse Rate 91 H 97 H Pulse Rate from SpO2 Sensor 91 H 95 H Pulse Rhythm Pulse Strength Respiratory Rate 19 17 Respiratory Effort / Characteristics Respiratory Depth Respiratory Pattern Blood Pressure Blood Pressure Mean Blood Pressure Position Pulse Oximetry 99 93 Oxygen Delivery Method Room Air Sepsis Recent Fever Within 48 Hours Sepsis New/Unexplained Change in Mental Status Sepsis Action Taken by Nursing 12/01/20 17:30 12/01/20 17:31 12/01/20 18:00 Temperature Temperature Source Pulse Rate 97 H 97 H 95 H Pulse Rate from SpO2 Sensor 97 H 98 H 96 H Pulse Rhythm Pulse Strength Respiratory Rate 18 18 25 H Respiratory Effort / Characteristics Respiratory Depth Respiratory Pattern Blood Pressure 133/62 102/73 Blood Pressure Mean 85 82 Blood Pressure Position Pulse Oximetry 100 99 99 Oxygen Delivery Method Sepsis Recent Fever Within 48 Hours Sepsis New/Unexplained Change in Mental Status Sepsis Action Taken by Nursing 12/01/20 18:30 12/01/20 19:00 12/01/20 19:01 Temperature Temperature Source Pulse Rate 87 93 H 96 H Pulse Rate from SpO2 Sensor 89 92 H 94 H Pulse Rhythm Pulse Strength Respiratory Rate 17 18 22 Respiratory Effort / Characteristics Respiratory Depth Respiratory Pattern Blood Pressure 106/62 100/61 Blood Pressure Mean 76 74 Blood Pressure Position Pulse Oximetry 100 97 99 Oxygen Delivery Method Sepsis Recent Fever Within 48 Hours Sepsis New/Unexplained Change in Mental Status Sepsis Action Taken by Nursing 12/01/20 19:31 12/01/20 20:00 12/01/20 20:01 Temperature Temperature Source Pulse Rate 91 H 92 H 91 H Pulse Rate from SpO2 Sensor 92 H 92 H 93 H Pulse Rhythm Pulse Strength Respiratory Rate 21 19 21 Respiratory Effort / Characteristics Respiratory Depth Respiratory Pattern Blood Pressure 99/63 L 86/33 L Blood Pressure Mean 75 50 Blood Pressure Position Pulse Oximetry 100 97 96 Oxygen Delivery Method Sepsis Recent Fever Within 48 Hours Sepsis New/Unexplained Change in Mental Status Sepsis Action Taken by Nursing 12/01/20 20:30 12/01/20 20:31 12/01/20 21:00 Temperature Temperature Source Pulse Rate 92 H 100 H 86 Pulse Rate from SpO2 Sensor 93 H 100 H 86 Pulse Rhythm Pulse Strength Respiratory Rate 22 18 16 Respiratory Effort / Characteristics Respiratory Depth Respiratory Pattern Blood Pressure 94/61 L 87/59 L Blood Pressure Mean 72 68 Blood Pressure Position Pulse Oximetry 100 100 97 Oxygen Delivery Method Sepsis Recent Fever Within 48 Hours Sepsis New/Unexplained Change in Mental Status Sepsis Action Taken by Nursing Laboratory Data Result diagrams: 12/01/20 16:30 12/01/20 21:17 Lab Results 12/01/20 12/01/20 12/01/20 Range/Units 16:30 16:30 16:30 WBC 11.09 H (4.8-10.8) K/uL RBC 5.97 H (4.2-5.4) M/uL Hgb 16.4 H (12.0-16.0) g/dL Hct 48.0 H (37-47) % MCV 80.4 (80-100) fL MCH 27.5 (25-34) pg MCHC 34.2 (32-36) g/dL RDW Std Deviation 44.5 (36.4-46.3) fL RDW Coeff of Conchis 15.3 H (11.5-14.5) % Plt Count 383 (130-400) K/uL MPV 9.9 (7.4-10.4) fL Immature Gran % (Auto) 0.5 % Neut % (Auto) 83.8 % Lymph % (Auto) 8.7 % [place] % (Auto) 5.2 % Eos % (Auto) 1.2 % Baso % (Auto) 0.6 % Neut # (Auto) 9.29 H (1.4-6.5) K/uL Lymph # (Auto) 0.97 L (1.2-3.4) K/uL [place] # (Auto) 0.58 (0.11-0.59) K/uL Eos # (Auto) 0.13 (0-0.5) K/uL Baso # (Auto) 0.07 (0-0.2) K/uL Immature Gran # (Auto) 0.05 H (0.00-0.02) K/uL APTT (21.0-31.0) Seconds PTT Ratio VBG pH (7.36-7.41) VBG pCO2 (38-50) mmHg VBG pO2 mmHg VBG HCO3 mmol/L VBG O2 Saturation % VBG Base Excess mEq/L Barometric Pressure mm/Hg Sodium 129 L (136-145) mmol/L Potassium 5.1 (3.5-5.1) mmol/L Chloride 100 (98-107) mmol/L Carbon Dioxide 15 L (21-32) mmol/L Anion Gap 15.0 H (3-11) BUN 106 H (7-18) mg/dl Creatinine 2.72 H (0.6-1.2) mg/dl Est Cr Clr Drug Dosing 15.6 ml/min Est GFR ( Amer) 20.3 ml/min Est GFR (Non-Af Amer) 17.5 ml/min BUN/Creatinine Ratio 38.9 H (10-20) Glucose 83 (70-99) mg/dl Osmolality 315 H (280-300) mOsm/kg Lactate (0.4-2.0) mmol/L Calcium 11.0 H (8.5-10.1) mg/dl Phosphorus 4.0 (2.5-4.9) mg/dl Magnesium 1.9 (1.8-2.4) mg/dl Total Bilirubin 0.5 (0.2-1) mg/dl AST 21 (15-37) U/L ALT 15 (12-78) U/L Alkaline Phosphatase 121 H (45-117) U/L Troponin I < 0.015 (0-0.045) ng/ml Total Protein 8.8 H (6.4-8.2) gm/dl Albumin 3.9 (3.4-5.0) gm/dl Globulin 4.9 H (2.5-4.0) gm/dl Albumin/Globulin Ratio 0.8 L (0.9-2) Procalcitonin (0-0.5) ng/ml TSH 2.140 (0.300-4.500) uIu/ml COVID-19 Eval Order SARS-CoV-2 (PCR) (Negative) 12/01/20 12/01/20 12/01/20 Range/Units 16:30 16:30 16:45 WBC (4.8-10.8) K/uL RBC (4.2-5.4) M/uL Hgb (12.0-16.0) g/dL Hct (37-47) % MCV (80-100) fL MCH (25-34) pg MCHC (32-36) g/dL RDW Std Deviation (36.4-46.3) fL RDW Coeff of Conchis (11.5-14.5) % Plt Count (130-400) K/uL MPV (7.4-10.4) fL Immature Gran % (Auto) % Neut % (Auto) % Lymph % (Auto) % [place] % (Auto) % Eos % (Auto) % Baso % (Auto) % Neut # (Auto) (1.4-6.5) K/uL Lymph # (Auto) (1.2-3.4) K/uL [place] # (Auto) (0.11-0.59) K/uL Eos # (Auto) (0-0.5) K/uL Baso # (Auto) (0-0.2) K/uL Immature Gran # (Auto) (0.00-0.02) K/uL APTT 29.7 (21.0-31.0) Seconds PTT Ratio 1.1 VBG pH (7.36-7.41) VBG pCO2 (38-50) mmHg VBG pO2 mmHg VBG HCO3 mmol/L VBG O2 Saturation % VBG Base Excess mEq/L Barometric Pressure mm/Hg Sodium (136-145) mmol/L Potassium (3.5-5.1) mmol/L Chloride (98-107) mmol/L Carbon Dioxide (21-32) mmol/L Anion Gap (3-11) BUN (7-18) mg/dl Creatinine (0.6-1.2) mg/dl Est Cr Clr Drug Dosing ml/min Est GFR ( Amer) ml/min Est GFR (Non-Af Amer) ml/min BUN/Creatinine Ratio (10-20) Glucose (70-99) mg/dl Osmolality (280-300) mOsm/kg Lactate (0.4-2.0) mmol/L Calcium (8.5-10.1) mg/dl Phosphorus (2.5-4.9) mg/dl Magnesium (1.8-2.4) mg/dl Total Bilirubin (0.2-1) mg/dl AST (15-37) U/L ALT (12-78) U/L Alkaline Phosphatase (45-117) U/L Troponin I (0-0.045) ng/ml Total Protein (6.4-8.2) gm/dl Albumin (3.4-5.0) gm/dl Globulin (2.5-4.0) gm/dl Albumin/Globulin Ratio (0.9-2) Procalcitonin 0.20 (0-0.5) ng/ml TSH (0.300-4.500) uIu/ml COVID-19 Eval Order Covid19 at [facility] SARS-CoV-2 (PCR) (Negative) 12/01/20 12/01/20 12/01/20 Range/Units 16:45 21:17 21:17 WBC (4.8-10.8) K/uL RBC (4.2-5.4) M/uL Hgb (12.0-16.0) g/dL Hct (37-47) % MCV (80-100) fL MCH (25-34) pg MCHC (32-36) g/dL RDW Std Deviation (36.4-46.3) fL RDW Coeff of Conchis (11.5-14.5) % Plt Count (130-400) K/uL MPV (7.4-10.4) fL Immature Gran % (Auto) % Neut % (Auto) % Lymph % (Auto) % [place] % (Auto) % Eos % (Auto) % Baso % (Auto) % Neut # (Auto) (1.4-6.5) K/uL Lymph # (Auto) (1.2-3.4) K/uL [place] # (Auto) (0.11-0.59) K/uL Eos # (Auto) (0-0.5) K/uL Baso # (Auto) (0-0.2) K/uL Immature Gran # (Auto) (0.00-0.02) K/uL APTT (21.0-31.0) Seconds PTT Ratio VBG pH 7.36 (7.36-7.41) VBG pCO2 33 L (38-50) mmHg VBG pO2 19 mmHg VBG HCO3 18 mmol/L VBG O2 Saturation < 60.0 % VBG Base Excess -6.2 mEq/L Barometric Pressure 733.6 mm/Hg Sodium 132 L (136-145) mmol/L Potassium 3.6 D (3.5-5.1) mmol/L Chloride 104 (98-107) mmol/L Carbon Dioxide 18 L (21-32) mmol/L Anion Gap 9.0 (3-11) BUN 89 H (7-18) mg/dl Creatinine 2.06 H D (0.6-1.2) mg/dl Est Cr Clr Drug Dosing 20.5 ml/min Est GFR ( Amer) 28.4 ml/min Est GFR (Non-Af Amer) 24.5 ml/min BUN/Creatinine Ratio 43.1 H (10-20) Glucose 199 H (70-99) mg/dl Osmolality (280-300) mOsm/kg Lactate (0.4-2.0) mmol/L Calcium 9.2 D (8.5-10.1) mg/dl Phosphorus (2.5-4.9) mg/dl Magnesium (1.8-2.4) mg/dl Total Bilirubin (0.2-1) mg/dl AST (15-37) U/L ALT (12-78) U/L Alkaline Phosphatase (45-117) U/L Troponin I (0-0.045) ng/ml Total Protein (6.4-8.2) gm/dl Albumin (3.4-5.0) gm/dl Globulin (2.5-4.0) gm/dl Albumin/Globulin Ratio (0.9-2) Procalcitonin (0-0.5) ng/ml TSH (0.300-4.500) uIu/ml COVID-19 Eval Order SARS-CoV-2 (PCR) NEGATIVE (Negative) 12/01/20 Range/Units 21:17 WBC (4.8-10.8) K/uL RBC (4.2-5.4) M/uL Hgb (12.0-16.0) g/dL Hct (37-47) % MCV (80-100) fL MCH (25-34) pg MCHC (32-36) g/dL RDW Std Deviation (36.4-46.3) fL RDW Coeff of Conchis (11.5-14.5) % Plt Count (130-400) K/uL MPV (7.4-10.4) fL Immature Gran % (Auto) % Neut % (Auto) % Lymph % (Auto) % [place] % (Auto) % Eos % (Auto) % Baso % (Auto) % Neut # (Auto) (1.4-6.5) K/uL Lymph # (Auto) (1.2-3.4) K/uL [place] # (Auto) (0.11-0.59) K/uL Eos # (Auto) (0-0.5) K/uL Baso # (Auto) (0-0.2) K/uL Immature Gran # (Auto) (0.00-0.02) K/uL APTT (21.0-31.0) Seconds PTT Ratio VBG pH (7.36-7.41) VBG pCO2 (38-50) mmHg VBG pO2 mmHg VBG HCO3 mmol/L VBG O2 Saturation % VBG Base Excess mEq/L Barometric Pressure mm/Hg Sodium (136-145) mmol/L Potassium (3.5-5.1) mmol/L Chloride (98-107) mmol/L Carbon Dioxide (21-32) mmol/L Anion Gap (3-11) BUN (7-18) mg/dl Creatinine (0.6-1.2) mg/dl Est Cr Clr Drug Dosing ml/min Est GFR ( Amer) ml/min Est GFR (Non-Af Amer) ml/min BUN/Creatinine Ratio (10-20) Glucose (70-99) mg/dl Osmolality (280-300) mOsm/kg Lactate 1.1 (0.4-2.0) mmol/L Calcium (8.5-10.1) mg/dl Phosphorus (2.5-4.9) mg/dl Magnesium (1.8-2.4) mg/dl Total Bilirubin (0.2-1) mg/dl AST (15-37) U/L ALT (12-78) U/L Alkaline Phosphatase (45-117) U/L Troponin I (0-0.045) ng/ml Total Protein (6.4-8.2) gm/dl Albumin (3.4-5.0) gm/dl Globulin (2.5-4.0) gm/dl Albumin/Globulin Ratio (0.9-2) Procalcitonin (0-0.5) ng/ml TSH (0.300-4.500) uIu/ml COVID-19 Eval Order SARS-CoV-2 (PCR) (Negative) Administered Medications Lactated Ringer's (Lr) 1,000 mls @ 75 mls/hr IV .[id number] RACHEL Stop: 12/03/20 23:29 Last Admin: 12/01/20 23:22 Dose: 75 mls/hr Documented by: [id number] Insulin Aspart (Insulin Aspart 100 Units/Ml 3 Ml Pen) 0 units SC ACHS RACHEL Stop: 12/31/20 22:48 Last Admin: 12/01/20 23:17 Dose: Not Given Documented by: [id number] Discontinued Medications Sodium Chloride (Nss) 500 mls @ 999 mls/hr IV .Q31M RACHEL Stop: 12/01/20 16:45 Last Infusion: 12/01/20 17:00 Dose: 0 mls/hr Documented by: [id number] Admin: 12/01/20 16:26 Dose: 999 mls/hr Documented by: [id number] Sodium Chloride (Nss 1000ml) 1,000 mls @ 125 mls/hr IV .Q8H RACHEL Stop: 12/02/20 00:14 Last Infusion: 12/01/20 23:20 Dose: 0 mls/hr Documented by: [id number] Admin: 12/01/20 19:05 Dose: 125 mls/hr Documented by: [id number] Sodium Chloride (Nss 1000ml) 500 mls @ 999 mls/hr IV .Q31M ONE Stop: 12/01/20 18:22 Last Infusion: 12/01/20 18:40 Dose: 0 mls/hr Documented by: [id number] Admin: 12/01/20 18:09 Dose: 999 mls/hr Documented by: [id number] Sodium Bicarbonate (Sodium Bicarb 8.4% Inj 50 Meq/50 Ml Syr) 50 meq IV NOW STA Stop: 12/01/20 20:16 Last Admin: 12/01/20 20:47 Dose: 50 meq Documented by: [id number] Imaging Data Radiologist's Impression: Abdomen/Pelvis CT 12/01/20 16:[address] WITH ORAL CONTRAST CT DOSE: 804.12 mGycm HISTORY: inability to eat, recent colostomy revision., hx of inflammatory bowel disease TECHNIQUE: Multiaxial CT images of the abdomen and pelvis were performed foll owing the use of oral contrast. A dose lowering technique was utilized adhering to the principles of ALARA. COMPARISON STUDY: Abdomen and pelvis CT 09/28/2020. FINDINGS: The lung bases are clear. No pneumoperitoneum. No pneumatosis. No suspicious lytic are blastic osseous lesions. The unenhanced spleen, liver, adrenal glands, and pancreas are unremarkable. No retroperitoneal lymphadenopathy. Calcified plaque within the normal caliber abdominal aorta. An IVC filter is noted. There are punctate bilateral renal calculi. Stable hypodense lesion within the left kidney. This favors a cyst. The bladder is unremarkable. There is a large gallstone, unchanged. No gallbladder wall thickening. No dilated loops of bowel to suggest an obstruction. There is a right lower quadrant ileostomy and evidence for prior colectomy. Contrast extends into the ileostomy bag. Linear soft tissue densities along the lateral aspect of the colostomy site remain unchanged. This may represent scarring or healed enterocutaneous fistulas. No gas or contrast within this soft tissue abnormality to suggest an active fistula. Loculated fluid collection and soft tissue thickening within the presacral space. This fluid collection measures approximately 4 cm and may represent a postoperative seroma. Focal area of soft tissue thickening/inflammatory change within the lateral aspect of the left lower quadrant has improved. IMPRESSION: 1. Postoperative changes consistent with a prior colectomy and right lower quadrant ileostomy. Contrast extends into the ileostomy bag and there are no dilated loops of bowel. Therefore, no evidence for bowel obstruction. 2. Cholelithiasis, unchanged. No gallbladder wall thickening. 3. Soft tissue density/inflammatory change within the lateral aspect of the left lower quadrant has improved. This could represent a resolving postoperative seroma. 4. Thick-walled low-density collection within the presacral space which measures 4 cm. This is nonspecific but could represent a postoperative seroma. This is new from the prior study. 5. Bilateral nephrolithiasis. No hydronephrosis. ACT 112: Negative or not required by law. Electronically signed by: Minh Bhat M.D. 12/01/2020 7:46 PM Chest X-Ray 12/01/20 20:16 XR chest 1V portable HISTORY: Renal failure. COMPARISON: Chest 09/28/2020. FINDINGS: The lungs are clear. Cardiac silhouette is normal in size. No pleural effusions. No pneumothorax. IMPRESSION: No acute process. ACT 112: Negative or not required by law. Electronically signed by: Minh Bhat M.D. 12/01/2020 8:27 PM Discharge Plan Visit Data Chief Complaint: Weakness ED Provider: Rahul Mares Discharge Problem: Acute renal failure, Weakness, Acute UTI (urinary tract infection) Patient Disposition: Admitted As Inpatient Discharge Instructions Interventions: ED Discharge Assessment Last Done: 12/01/20 22:40
[2020-12-01 16:42] LABS: Basophils # (auto) 0.07 K/uL (0-0.2); Basophils % (auto) 0.6 %; Eosinophils # (auto) 0.13 K/uL (0-0.5); Eosinophils % (auto) 1.2 %; Hemoglobin 16.4 g/dL (12.0-16.0); Immature Granulocytes # (auto) 0.05 K/uL (0.00-0.02); Immature Granulocytes % (auto) 0.5 %; Lymphocytes # (auto) 0.97 K/uL (1.2-3.4); Lymphocytes % (auto) 8.7 %; Mean Corpuscular Hemoglobin 27.5 pg (25-34); Mean Corpuscular Hgb Conc 34.2 g/dL (32-36); Mean Corpuscular Volume 80.4 fL (80-100); Mean Platelet Volume 9.9 fL (7.4-10.4); Monocytes # (auto) 0.58 K/uL (0.11-0.59); Monocytes % (auto) 5.2 %; Neutrophils # (auto) 9.29 K/uL (1.4-6.5); Neutrophils % (auto) 83.8 %; Platelet Count 383 K/uL (130-400); RDW Coefficient of Variation 15.3 % (11.5-14.5); RDW Standard Deviation 44.5 fL (36.4-46.3); Red Blood Count 5.97 M/uL (4.2-5.4); White Blood Count 11.09 K/uL (4.8-10.8)
[2020-12-01 17:03] LABS: Alanine Aminotransferase 15 U/L (12-78); Albumin Level 3.9 gm/dl (3.4-5.0); BUN Creatinine Ratio 38.9 (10-20); Blood Urea Nitrogen 106 mg/dl (7-18); Carbon Dioxide 15 mmol/L (21-32); Chloride 100 mmol/L (98-107); Creatinine Clr Calc Pharmacy 15.6 ml/min; Est GFR (African American) 20.3 ml/min; Est GFR (Non-African American) 17.5 ml/min; Glucose 83 mg/dl (70-99); Sodium 129 mmol/L (136-145)
[2020-12-01 17:06] LABS: Potassium 5.1 mmol/L (3.5-5.1)
[2020-12-01 17:31] LABS: Alkaline Phosphatase 121 U/L (45-117); Aspartate Aminotransferase 21 U/L (15-37); Bilirubin,Total 0.5 mg/dl (0.2-1); Magnesium 1.9 mg/dl (1.8-2.4); Total Protein 8.8 gm/dl (6.4-8.2); Troponin I < 0.015 ng/ml (0-0.045)
[2020-12-01 17:32] LABS: Albumin Globulin Ratio 0.8 (0.9-2); Globulin 4.9 gm/dl (2.5-4.0)
[2020-12-01] MEDS ORDERED: SODIUM CHLORIDE 0.9% 1000ML 500 ML IV ONE (17:52)
--- NOTE | 2020-12-01 19:48 | CT Scan Report ---
ABDOMEN AND PELVIS CT WITH ORAL CONTRAST CT DOSE: 804.12 mGycm HISTORY: inability to eat, recent colostomy revision., hx of inflammatory bowel disease TECHNIQUE: Multiaxial CT images of the abdomen and pelvis were performed following the use of oral co ntrast. A dose lowering technique was utilized adhering to the principles of ALARA. COMPARISON STUDY: Abdomen and pelvis CT 09/28/2020. FINDINGS: The lung bases are clear. No pneumoperitoneum. No pneumatosis. No suspicious lytic are blanca tic osseous lesions. The unenhanced spleen, liver, adrenal glands, and pancreas are unremarkable. No retroperitoneal lymphadenopathy. Calcified plaque within the normal caliber abdominal aorta. An IVC f ilter is noted. There are punctate bilateral renal calculi. Stable hypodense lesion within the left k idney. This favors a cyst. The bladder is unremarkable. There is a large gallstone, unchanged. No gal lbladder wall thickening. No dilated loops of bowel to suggest an obstruction. There is a right lower quadrant ileostomy and evidence for prior colectomy. Contrast extends into the ileostomy bag. Linear soft tissue densities along the lateral aspect of the colostomy site remain unchanged. This may repr esent scarring or healed enterocutaneous fistulas. No gas or contrast within this soft tissue abnorma lity to suggest an active fistula. Loculated fluid collection and soft tissue thickening within the p resacral space. This fluid collection measures approximately 4 cm and may represent a postoperative s eroma. Focal area of soft tissue thickening/inflammatory change within the lateral aspect of the left lower quadrant has improved. IMPRESSION: 1. Postoperative changes consistent with a prior colectomy and right lower quadrant ileostomy. Contra st extends into the ileostomy bag and there are no dilated loops of bowel. Therefore, no evidence for bowel obstruction. 2. Cholelithiasis, unchanged. No gallbladder wall thickening. 3. Soft tissue density/inflammatory change within the lateral aspect of the left lower quadrant has i mproved. This could represent a resolving postoperative seroma. 4. Thick-walled low-density collection within the presacral space which measures 4 cm. This is nonspe cific but could represent a postoperative seroma. This is new from the prior study. 5. Bilateral nephrolithiasis. No hydronephrosis. ACT 112: Negative or not required by law. Electronically signed by: Minh Bhat M.D. 12/01/2020 7:46 PM
[2020-12-01] MEDS ORDERED: SODIUM BICARB 8.4% INJ 50 MEQ/50 ML SYR IV STA (20:15)
--- NOTE | 2020-12-01 20:29 | XRay Report ---
XR chest 1V portable HISTORY: Renal failure. COMPARISON: Chest 09/28/2020. FINDINGS: The lungs are clear. Cardiac silhouette is normal in size. No pleural effusions. No pneumot horax. IMPRESSION: No acute process. ACT 112: Negative or not required by law. Electronically signed by: Minh Bhat M.D. 12/01/2020 8:27 PM
--- NOTE | 2020-12-01 21:21 | History & Physical Report ---
Date of Service December 01, 2020 Assessment & Plan (1) Weakness: Multifactorial : ARF secondary to ATN from hypotension, poor p.o. intake, depression, functional disability Complicated UTI, possible sepsis, failed outpatient treatment with Macrodantin Hyponatremia, AGMA, hypercalcemia secondary to clinical dehydration hx IBD status post surgery (09/2020), postop abscess status post IR drainage (10/2020) Postop seromas on today's CT history recurrent PE DVT on Eliquis sp IVC filter placement chronic anemia, hemoglobin better than baseline secondary to marked hemoconcentration hx R breast cancer status post surgery, radiation HTN, BP currently on the lower side. 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 El) in a.m. regarding recommendations for postop seromas on CT Basal insulin, ISS BG goal [id number], carb count coverage PT OT eval DVT prophylaxis. [employer] Full code Text document was generated using [employer] voice recognition software. It may contain grammatical or spelling errors. Kindly contact undersigned for clarification of any documentation item in question. History of Present Illness Primary Care Provider: Dr. Heather Bolton (Patient has not met new PCP personally.) History obtained from patient and records. 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 Last confinement [facility] October 02 to October 16, 2020 for continued L GIB secondary to ulcerative colitis flareup. Patient underwent intersphincteric proctectomy. Postop intra-abdominal abscess noted a few days after surgery. Patient underwent IR guided drainage. Postop Cipro Flagyl course as per documentation. Patient discharged to [facility] for rehab where she stayed for a few weeks before transitioning home 3 weeks ago. Poor appetite since being home a few weeks ago. Mild achy abdominal pain, some nausea. No change in ostomy output. Admits to bad depression but denies suicidality. No OTC NSAID intake. Outpatient GI provider received a call from patient's friend/caregiver regarding concerns about patient's ability to care for stoma independently. Outpatient wound/ostomy clinic referral recommended. 2 weeks ago patient noted dysuria symptoms without unusual abdominal pain. Macrodantin started a few days later for UTI which later grew E. coli. (intermediate Cipro resistance) Patient consulted ER for worsening weakness symptoms. Medical History as above Surgical History : Breast biopsy, appendectomy, tonsillectomy, intra-abdominal abscess drainage, laparoscopic colectomy with ileostomy Family History : Pancreatic cancer, Crohn's disease, DM, heart disease Personal/Social history : Non-smoker, no EtOH intake, retired [employer] employee, lives by herself with cat. Allergies Allergy/AdvReac Type Severity Reaction Status Date / Time aztreonam [From Azactam] Allergy Intermediate Flushed Verified 12/01/20 16:55 /itching dorzolamide Allergy Mild EYE LID Verified 12/01/20 16:55 SWELLING latanoprost Allergy Mild EYE LID Verified 12/01/20 16:55 SWELLING Penicillins Allergy Mild Rash Verified 12/01/20 16:55 timolol Allergy Mild EYE LID Verified 12/01/20 16:55 SWELLING amoxicillin [From Amoxil] Allergy Unknown Unknown Verified 12/01/20 16:55 brimonidine Allergy Unknown Unknown Verified 12/01/20 16:55 tafluprost Allergy Unknown Unknown Verified 12/01/20 16:55 thimerosal Allergy Unknown Unknown Verified 12/01/20 16:55 empagliflozin AdvReac Severe Confusion Verified 12/01/20 16:55 [From Jardiance] Home Medications Medication Instructions Recorded Confirmed Type calcium citrate-vitamin D3 1 tab PO QAM 05/12/18 12/01/20 History [Citracal-D3 Petites] cholecalciferol (vitamin D3) 1,000 unit PO QAM 05/12/18 12/01/20 History [Vitamin D3] levothyroxine 75 mcg PO QAM 05/12/18 12/01/20 History atorvastatin 40 mg PO HS 07/21/19 12/01/20 History pantoprazole 40 mg PO QAM 02/15/20 12/01/20 History Tresiba FlexTouch U-200 30 unit SUBCUT QAM 07/01/20 12/01/20 History One-A-Day Womens Formula 1 tab PO QAM 08/10/20 12/01/20 History acetaminophen [Tylenol] 650 mg PO Q4H PRN MDD 3000 MG 08/10/20 12/01/20 History APAP/24 HOURS citalopram 10 mg PO QAM 08/10/20 12/01/20 History oxycodone 5 mg PO Q6H PRN 08/10/20 12/01/20 History polysaccharide iron complex 150 mg PO BID 08/10/20 12/01/20 History [Ferrex 150] apixaban [Eliquis] 2.5 mg PO BID 12/01/20 12/01/20 History cyanocobalamin (vitamin B-12) 1,000 mcg PO DAILY 12/01/20 12/01/20 History [Vitamin B-12] folic acid 1 mg PO DAILY 12/01/20 12/01/20 History ondansetron 4 mg PO Q6H PRN 12/01/20 12/01/20 History Past Med/Surg History Medical History (Updated 12/01/20 @ 23:50 by Rahul Mares MD) Acute hyponatremia Acute kidney injury Anemia Breast cancer, right 2012--SX & RADIATION, NO CHEMO C. 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) "Abnormal right breast mammogram Biopsy-positive for DCIS Status post lumpectomy with no residual tumor stage pTis NXMX Estrogen receptor positive, progesterone receptor positive Status post completion of radiation therapy 02/22/2013 received 3850 cGy utilizing accelerated partial breast treatment " Obesity (BMI 30-39.9) Surgical History H/O breast biopsy 2012--RIGHT MALIGNANT H/O lumpectomy History of appendectomy History of colonoscopy History of lumpectomy of right breast "+ HERBIE ER/NH + in 10/2012 s/p RT" History of tonsillectomy and adenoidectomy Hx of appendectomy S/P insertion of IVC (inferior vena caval) filter 03/29/[address] BUSTAMANTE Status post colectomy Status post glaucoma surgery BILT Family History Mother Family history of diabetes mellitus Heart disease Father Family history of diabetes mellitus Heart disease Sister Family history of diabetes mellitus Grandmother Family history of diabetes mellitus PATERNAL Uterine cancer Sister Crohn's disease Social History Smoking Status: Never smoker Second Hand Exposure: No; Hx Alcohol Use: No Hx Substance Use: No Preferred Language: [place] Communication Ability: Effective Visual Impairment: No Limitations Hearing Ability: Normal Plate Roller Required: No Beliefs That Will Affect Care: None marital status: Single Current Living Situation: Alone Current Living Situation Comment: alone How many Children do You have: 0 Other Information That Helps Us Care for You: No Feels Safe at Home: Yes Safety Concerns: Feels Safe At This Time Assistive Devices: Glasses Review of Systems Review of Systems: As per HPI, all 10 systems reviewed, all other ROS negative Physical Exam Physical Exam: GENERAL: Comfortable, pleasant, no respiratory distress SKIN: Pallor, warm HEENT: Bespectacled, pale palpebral conjunctivae, no ptosis, dry buccal mucosa NECK : Supple, no tenderness CHEST : CTA, no tenderness HEART : RRR, no obvious murmurs ABDOMEN: Some distention, right-sided ostomy noted EXTREMITIES : Minimal LE swelling, no LE tenderness, no other conspicuous deformities noted NEUROLOGIC : Coherent, no facial asymmetry, no other gross focality Results & Data Results & Data ([facility]) Vital Signs (Past 12 Hours) Vital Signs Temp Pulse Resp BP Pulse Ox 12/01/20 19:31 91 H 21 99/63 L 100 12/01/20 19:01 96 H 22 99 12/01/20 19:00 93 H 18 100/61 97 12/01/20 18:30 87 17 106/62 100 12/01/20 18:00 95 H 25 H 102/73 99 12/01/20 17:31 97 H 18 99 12/01/20 17:30 97 H 18 133/62 100 12/01/20 17:00 97 H 17 93 12/01/20 16:30 91 H 19 99 12/01/20 16:04 96 H 23 99 12/01/20 16:00 98 H 23 96/69 L 97 12/01/20 15:56 36.7 C 95 H 18 96/69 L 98 Laboratory Results Laboratory Results WBC 11.09 K/uL (4.8-10.8) H 12/01/20 16:30 RBC 5.97 M/uL (4.2-5.4) H 12/01/20 16:30 Hgb 16.4 g/dL (12.0-16.0) H 12/01/20 16:30 Hct 48.0 % (37-47) H 12/01/20 16:30 MCV 80.4 fL (80-100) 12/01/20 16:30 MCH 27.5 pg (25-34) 12/01/20 16:30 MCHC 34.2 g/dL (32-36) 12/01/20 16:30 RDW Std Deviation 44.5 fL (36.4-46.3) 12/01/20 16:30 RDW Coeff of Conchis 15.3 % (11.5-14.5) H 12/01/20 16:30 Plt Count 383 K/uL (130-400) 12/01/20 16:30 MPV 9.9 fL (7.4-10.4) 12/01/20 16:30 Immature Gran % (Auto) 0.5 % 12/01/20 16:30 Neut % (Auto) 83.8 % 12/01/20 16:30 Lymph % (Auto) 8.7 % 12/01/20 16:30 [place] % (Auto) 5.2 % 12/01/20 16:30 Eos % (Auto) 1.2 % 12/01/20 16:30 Baso % (Auto) 0.6 % 12/01/20 16:30 Neut # (Auto) 9.29 K/uL (1.4-6.5) H 12/01/20 16:30 Lymph # (Auto) 0.97 K/uL (1.2-3.4) L 12/01/20 16:30 [place] # (Auto) 0.58 K/uL (0.11-0.59) 12/01/20 16:30 Eos # (Auto) 0.13 K/uL (0-0.5) 12/01/20 16:30 Baso # (Auto) 0.07 K/uL (0-0.2) 12/01/20 16:30 Immature Gran # (Auto) 0.05 K/uL (0.00-0.02) H 12/01/20 16:30 Sodium 129 mmol/L (136-145) L 12/01/20 16:30 Potassium 5.1 mmol/L (3.5-5.1) 12/01/20 16:30 Chloride 100 mmol/L (98-107) 12/01/20 16:30 Carbon Dioxide 15 mmol/L (21-32) L 12/01/20 16:30 Anion Gap 15.0 (3-11) H 12/01/20 16:30 BUN 106 mg/dl (7-18) H 12/01/20 16:30 Creatinine 2.72 mg/dl (0.6-1.2) H 12/01/20 16:30 Est Cr Clr Drug Dosing 15.6 ml/min 12/01/20 16:30 Est GFR ( Amer) 20.3 ml/min 12/01/20 16:30 Est GFR (Non-Af Amer) 17.5 ml/min 12/01/20 16:30 BUN/Creatinine Ratio 38.9 (10-20) H 12/01/20 16:30 Glucose 83 mg/dl (70-99) 12/01/20 16:30 Osmolality 315 mOsm/kg (280-300) H 12/01/20 16:30 Calcium 11.0 mg/dl (8.5-10.1) H 12/01/20 16:30 Magnesium 1.9 mg/dl (1.8-2.4) 12/01/20 16:30 Total Bilirubin 0.5 mg/dl (0.2-1) 12/01/20 16:30 AST 21 U/L (15-37) 12/01/20 16:30 ALT 15 U/L (12-78) 12/01/20 16:30 Alkaline Phosphatase 121 U/L (45-117) H 12/01/20 16:30 Troponin I < 0.015 ng/ml (0-0.045) 12/01/20 16:30 Total Protein 8.8 gm/dl (6.4-8.2) H 12/01/20 16:30 Albumin 3.9 gm/dl (3.4-5.0) 12/01/20 16:30 Globulin 4.9 gm/dl (2.5-4.0) H 12/01/20 16:30 Albumin/Globulin Ratio 0.8 (0.9-2) L 12/01/20 16:30 Procalcitonin 0.20 ng/ml (0-0.5) 12/01/20 16:30 TSH 2.140 uIu/ml (0.300-4.500) 12/01/20 16:30 COVID-19 Eval Order Covid19 at [facility] 12/01/20 16:45 SARS-CoV-2 (PCR) NEGATIVE (Negative) 12/01/20 16:45 Impressions Abdomen/Pelvis CT 12/01/20 16:[address] WITH ORAL CONTRAST CT DOSE: 804.12 mGycm HISTORY: inability to eat, recent colostomy revision., hx of inflammatory bowel disease TECHNIQUE: Multiaxial CT images of the abdomen and pelvis were performed following the use of oral contrast. A dose lowering technique was utilized adhering to the principles of ALARA. COMPARISON STUDY: Abdomen and pelvis CT 09/28/2020. FINDINGS: The lung bases are clear. No pneumoperitoneum. No pneumatosis. No suspicious lytic are blastic osseous lesions. The unenhanced spleen, liver, adrenal glands, and pancreas are unremarkable. No retroperitoneal lymphadenopathy. Calcified plaque within the normal caliber abdominal aorta. An IVC filter is noted. There are punctate bilateral renal calculi. Stable hypodens e lesion within the left kidney. This favors a cyst. The bladder is unremarkable. There is a large gallstone, unchanged. No gallbladder wall thickening. No dilated loops of bowel to suggest an obstruction. There is a right lower quadrant ileostomy and evidence for prior colectomy. Contrast extends into the ileostomy bag. Linear soft tissue densities along the lateral aspect of the colostomy site remain unchanged. This may represent scarring or healed enterocutaneous fistulas. No gas or contrast within this soft tissue abnormality to suggest an active fistula. Loculated fluid collection and soft tissue thickening within the presacral space. This fluid collection measures approximately 4 cm and may represent a postoperative seroma. Focal area of soft tissue thickening/inflammatory change within the lateral aspect of the left lower quadrant has improved. IMPRESSION: 1. Postoperative changes consistent with a prior colectomy and right lower quadrant ileostomy. Contrast extends into the ileostomy bag and there are no dilated loops of bowel. Therefore, no evidence for bowel obstruction. 2. Cholelithiasis, unchanged. No gallbladder wall thickening. 3. Soft tissue density/inflammatory change within the lateral aspect of the left lower quadrant has improved. This could represent a resolving postoperative seroma. 4. Thick-walled low-density collection within the presacral space which measures 4 cm. This is nonspecific but could represent a postoperative seroma. This is new from the prior study. 5. Bilateral nephrolithiasis. No hydronephrosis. ACT 112: Negative or not required by law. Electronically signed by: Minh Bhat M.D. 12/01/2020 7:46 PM Chest X-Ray 12/01/20 20:16 XR chest 1V portable HISTORY: Renal failure. COMPARISON: Chest 09/28/2020. FINDINGS: The lungs are clear. Cardiac silhouette is normal in size. No pleural effusions. No pneumothorax. IMPRESSION: No acute process. ACT 112: Negative or not required by law. Electronically signed by: Minh Bhat M.D. 12/01/2020 8:27 PM Diagnostic Findings EKG as per my interpretation: Rate 95, NSR, LAD, LAFB, inferior infarct
[2020-12-01 21:29] LABS: Base Excess VBG -6.2 mEq/L; HCO3 VBG 18 mmol/L; PCO2 VBG 33 mmHg (38-50); PO2 VBG 19 mmHg; pH VBG 7.36 (7.36-7.41)
[2020-12-01 21:41] LABS: Partial Thromboplastin Ratio 1.1; Partial Thromboplastin Time 29.7 Seconds (21.0-31.0)
[2020-12-01 21:43] LABS: BUN Creatinine Ratio 43.1 (10-20); Calcium 9.2 mg/dl (8.5-10.1); Creatinine Clr Calc Pharmacy 20.5 ml/min; Est GFR (African American) 28.4 ml/min; Est GFR (Non-African American) 24.5 ml/min
[2020-12-01 21:49] LABS: Appearance Urine Turbid (Clear); Bacteria Urine Automated 2+ (Negative); Bilirubin Urine Negative (Negative); Blood Urine 2+ (Negative); Color Urine Yellow; Epithelial Cell Urine Auto >30 /lpf (0-5); Glucose Urine UA Negative (Negative); Ketones Urine Negative (Negative); Leukocyte Esterase Urine 3+ (Negative); Nitrite Urine Positive (Negative); Protein Urine 1+ (Negative); Specific Gravity Urine 1.016 (1.000-1.030); Urobilinogen Urine Negative (Negative); WBC Urine Automated >30 /hpf (0-5)
[2020-12-01 22:08] LABS: Oxygen Saturation VBG < 60.0 %
[2020-12-01 22:13] LABS: Cast Urine Automated 0 /lpf (0-5)
[2020-12-01 22:38] LABS: Potassium 3.6 mmol/L (3.5-5.1)
[2020-12-01] MEDS ORDERED: CARBOHYDRATES FOR HYPOGLYCEMIA PO PRN (22:49)
[2020-12-01] MEDS ORDERED: GLUCAGON FOR INJ 1 MG VIAL SQ PRN (22:49)
[2020-12-01] MEDS ORDERED: ACETAMINOPHEN 325 MG TAB PO PRN (22:49)
[2020-12-01] MEDS ORDERED: GLUCOSE 40% GEL 15 GM TUBE PO PRN (22:49)
[2020-12-01] MEDS ORDERED: PROMETHAZINE HCL 12.5 MG in SODIUM CHLORIDE 0.9% 50 ML IV PRN (22:49)
[2020-12-01] MEDS ORDERED: GLUCOSE 10 TABS/TUBE PO PRN (22:49)
[2020-12-01] MEDS ORDERED: DEXTROSE 50% 50 ML SYRINGE IV PRN (22:49)
[2020-12-01] MEDS ORDERED: oxyCODONE HCL IR 5 MG TAB (IMMEDIATE RELEASE) PO PRN (22:49)
[2020-12-01] MEDS: INSULIN ASPART 100 UNITS/ML 3 ML PEN SC SCH (23:17)
[2020-12-01] MEDS: LACTATED RINGER'S 1,000 ML IV SCH (23:22)
[2020-12-02] MEDS ORDERED: CEFEPIME 2,000 MG in SYRINGE 0 ML IV ONE (00:15)
[2020-12-02 00:32] LABS: Creatine Kinase 20 U/L (26-192)
[2020-12-02] MEDS: APIXABAN 2.5 MG TAB PO SCH ×3 (00:38→20:25)
[2020-12-02] MEDS: LEVOTHYROXINE SODIUM 75 MCG TABLET PO SCH (05:44)
[2020-12-02 06:54] LABS: Hematocrit (blood only) 37.6 % (37-47); Hemoglobin 12.8 g/dL (12.0-16.0); Mean Corpuscular Hemoglobin 27.1 pg (25-34); Mean Corpuscular Volume 79.5 fL (80-100); Mean Platelet Volume 9.7 fL (7.4-10.4); Platelet Count 283 K/uL (130-400); RDW Coefficient of Variation 15.3 % (11.5-14.5); RDW Standard Deviation 44.7 fL (36.4-46.3); Red Blood Count 4.73 M/uL (4.2-5.4)
[2020-12-02 07:26] LABS: BUN Creatinine Ratio 46.5 (10-20); Creatinine Clr Calc Pharmacy 27.3 ml/min; Est GFR (African American) 39.4 ml/min; Potassium 3.5 mmol/L (3.5-5.1)
[2020-12-02] MEDS: CYANOCOBALAMIN 500 MCG TABLET (VITAMIN B-12) PO SCH (07:46)
[2020-12-02] MEDS: PANTOprazole 40 MG TAB PO SCH (07:47)
[2020-12-02] MEDS: FOLIC ACID 1 MG TAB PO SCH (07:47)
[2020-12-02] MEDS: IRON POLYSACCHARIDE COMPLEX 150 MG CAPSULE PO SCH ×2 (07:47→20:24)
[2020-12-02 08:10] LABS: Basophils # (auto) 0.04 K/uL (0-0.2); Basophils % (auto) 0.6 %; Eosinophils % (auto) 4.2 %; Immature Granulocytes # (auto) 0.05 K/uL (0.00-0.02); Immature Granulocytes % (auto) 0.7 %; Lymphocytes # (auto) 0.93 K/uL (1.2-3.4); Lymphocytes % (auto) 13.1 %; Monocytes % (auto) 8.5 %; Neutrophils # (auto) 5.18 K/uL (1.4-6.5); Neutrophils % (auto) 72.9 %
[2020-12-02] MEDS ORDERED: CITALOPRAM 20 MG TAB PO SCH (09:00)
[2020-12-02] MEDS: INSULIN ASPART 100 UNITS/ML 3 ML PEN SC SCH ×4 (09:06→20:22)
[2020-12-02] MEDS: INSULIN GLARGINE SOLOSTAR 100 UNITS/ML 3 ML PEN SC SCH ×2 (09:07→20:23)
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
[2020-12-02] MEDS ORDERED: traZODone HCL 50 MG TAB PO PRN (13:01)
[2020-12-02] MEDS: LACTATED RINGER'S 1,000 ML IV SCH (13:08)
--- NOTE | 2020-12-02 13:29 | Electrocardiogram Report ---
Test Reason : Blood Pressure : / mmHG Vent. Rate : 093 BPM Atrial Rate : 093 BPM P-R Int : 156 ms QRS Dur : 076 ms QT Int : 354 ms P-R-T Axes : 070 -57 058 degrees QTc Int : 440 ms Normal sinus rhythm Left axis deviation Inferior infarct , age undetermined Poor R wave progression, consider anterior NV vs. lead placement vs. LVH Abnormal ECG When compared with ECG of 29-SEP-2020 06:18, Vent. rate has increased BY 31 BPM QRS axis Shifted left Inferior infarct is now Present Confirmed by Miguel Vincent ([id number]) on 12/02/2020 1:28:46 PM Referred By: REFERRED SELF Confirmed By:Miguel Vincent
--- NOTE | 2020-12-02 16:26 | Hospitalist Progress Note ---
Date of Service December 02, 2020 Assessment & Plan (1) Weakness: Present on admission with poor appetite and weakness Possible related to acute illness, UTI and depression CT abd/pelvis showed thick-walled low-density collection within the presacral space which measures 4 cm. Continue PT/OT eval Fall precaution Might need placement UTI Urine cx grew E coli Blood cx no growth Continue cefepime IV daily KOKI Secondary ATN due to dehydration, hypotension poor oral intake Creatinine on admission 2.72 Continue IVF Creatinine trending down to 1.57 Continue monitor BMP Depression Psych consulted Denies any suicide thought Recommended to increase Citalopram to 20mg daily and Trazadone 25mg HS added Will need outpatient follow up with psych or provider will need to titrate med Hx Colectomy with ileostomy bag CT abd/pelvis showed postoperative changes consistent with a prior colectomy and right lower quadrant ileostomy. Soft tissue density/inflammatory change within the lateral aspect of the left lower quadrant has improved. Thick-walled low-density collection within the presacral space which measures 4 cm. This is nonspecific but could represent a postoperative seroma. This is new from the prior study. Will contact her surgeon in [facility] to discuss about the CT finding T2DM (type 2 diabetes mellitus): Most recent Hba1c 6.1 on 09/29/20 Continue insulin sliding scale Continue monitor BS Anemia Hgb stable above 12 Hx PE/DVT Continue Eliquis 2.5 mg BID DVT prophylaxis. Eliquis Full code Admission and Anticipated Discharge Date Admission Date: December 01, 2020 Subjective Pt was seen and examined for follow up of weakness Lying in bed with sister at bedside Pt said that he feels slightly better Sister said that pt is not able to care for herself Denies any chest pain, palpitation, dizziness and SOB Review of Systems Review of Systems: All systems reviewed & are unremarkable except as noted in Subjective Physical Exam Physical Exam: General- No acute distress Head- atraumatic Eyes- PERRL, EOMI, ENT- oropharynx clear Neck- supple, no JVD Lungs- clear to auscultation Heart- regular rhythm; no murmur Abdomen-+ostomy bag, Nontender Extremities- no calf tenderness Neuro- alert, oriented x 3; PERRL, EOMI; no facial palsy; no dysarthria Skin- warm & dry Results & Data Results & Data ([facility]) Vital Signs (Past 12 Hours) Vital Signs Temp Pulse Pulse Resp BP Pulse Ox 12/02/20 15:39 36.8 C 90 20 92/57 L 99 12/02/20 11:42 36.8 C 88 20 108/72 99 12/02/20 08:30 86 12/02/20 06:55 36.6 C 85 20 93/57 L 99
[2020-12-02] MEDS ORDERED: CEFEPIME 1,000 MG in SYRINGE 0 ML IV SCH (20:00)
[2020-12-02] MEDS: ATORVASTATIN 40 MG TAB PO SCH (20:25)
[2020-12-02] MEDS ORDERED: CEFEPIME CONSULT ACTIVE PRN (23:53)
[2020-12-03] MEDS: LACTATED RINGER'S 1,000 ML IV SCH ×2 (02:21→16:03)
[2020-12-03] MEDS: LEVOTHYROXINE SODIUM 75 MCG TABLET PO SCH (07:05)
[2020-12-03] MEDS: FOLIC ACID 1 MG TAB PO SCH (08:06)
[2020-12-03] MEDS: PANTOprazole 40 MG TAB PO SCH (08:06)
[2020-12-03] MEDS: IRON POLYSACCHARIDE COMPLEX 150 MG CAPSULE PO SCH ×2 (08:06→21:52)
[2020-12-03] MEDS: APIXABAN 2.5 MG TAB PO SCH ×2 (08:07→21:52)
[2020-12-03] MEDS: CYANOCOBALAMIN 500 MCG TABLET (VITAMIN B-12) PO SCH (08:07)
[2020-12-03] MEDS: CITALOPRAM 20 MG TAB PO SCH (08:07)
[2020-12-03] MEDS: INSULIN GLARGINE SOLOSTAR 100 UNITS/ML 3 ML PEN SC SCH ×2 (08:35→21:53)
[2020-12-03] MEDS: INSULIN ASPART 100 UNITS/ML 3 ML PEN SC SCH ×4 (08:36→21:53)
[2020-12-03 08:52] LABS: Hemoglobin 11.9 g/dL (12.0-16.0); Mean Corpuscular Hgb Conc 33.1 g/dL (32-36); Mean Corpuscular Volume 81.8 fL (80-100); Mean Platelet Volume 9.7 fL (7.4-10.4); Platelet Count 262 K/uL (130-400); RDW Coefficient of Variation 15.4 % (11.5-14.5); RDW Standard Deviation 46.1 fL (36.4-46.3); White Blood Count 6.73 K/uL (4.8-10.8)
[2020-12-03 09:16] LABS: BUN Creatinine Ratio 34.6 (10-20); Calcium 8.6 mg/dl (8.5-10.1); Creatinine Clr Calc Pharmacy 35.9 ml/min; Est GFR (Non-African American) 46.6 ml/min; Potassium 3.3 mmol/L (3.5-5.1)
[2020-12-03] MEDS ORDERED: cephALEXin 250 MG CAP PO SCH (09:30)
[2020-12-03] MEDS ORDERED: POTASSIUM CHLORIDE CRTAB 20 MEQ TABCR PO STA (09:47)
--- NOTE | 2020-12-03 16:12 | Hospitalist Progress Note ---
Date of Service December 03, 2020 Assessment & Plan (1) Weakness: Present on admission with poor appetite and weakness Possible related to acute illness, UTI and depression CT abd/pelvis showed thick-walled low-density collection within the presacral space which measures 4 cm. Continue PT/OT eval Fall precaution Might need placement Clinically improved UTI Urine cx grew E coli Blood cx no growth On cefepime IV daily, Will transition to keflex PO KOKI Secondary ATN due to dehydration, hypotension poor oral intake Creatinine on admission 2.72 Continue IVF Creatinine trending down to 1.21 Continue monitor BMP Depression Psych consulted Denies any suicide thought Recommended to increase Citalopram to 20mg daily and Trazadone 25mg HS added Pt said that she slept well last night Continue Citalopram 20mg daily and Trazadone 25mg HS Will need outpatient follow up with psych or provider will need to titrate med Hx Colectomy with ileostomy bag CT abd/pelvis showed postoperative changes consistent with a prior colectomy and right lower quadrant ileostomy. Soft tissue density/inflammatory change within the lateral aspect of the left lower quadrant has improved. Thick-walled low-density collection within the presacral space which measures 4 cm. This is nonspecific but could represent a postoperative seroma. This is new from the prior study. Notified the surgeon in [facility] Dr. El about the CT finding. Dr. El replied that is normal and no further testing or procedure needed T2DM (type 2 diabetes mellitus): Most recent Hba1c 6.1 on 09/29/20 Continue insulin sliding scale Continue monitor BS Hypokalemia Potassium 3.3 K replaced Continue monitor BMP Anemia Hgb stable at 11.9 Hx PE/DVT Continue Eliquis 2.5 mg BID DVT prophylaxis. Eliquis Full code Disposition Possible discharge tomorrow Admission and Anticipated Discharge Date Admission Date: December 01, 2020 Subjective Pt was seen and examined for follow up of weakness Lying in bed with no distress Pt said that she feels much better today She said that she slept well last night Denies any chest pain, palpitation, dizziness and SOB Review of Systems Review of Systems: All systems reviewed & are unremarkable except as noted in Subjective Physical Exam Physical Exam: General- No acute distress Head- atraumatic Eyes- PERRL, EOMI, ENT- oropharynx clear Neck- supple, no JVD Lungs- clear to auscultation Heart- regular rhythm; no murmur Abdomen-+ostomy bag, Nontender Extremities- no calf tenderness Neuro- alert, oriented x 3; PERRL, EOMI; no facial palsy; no dysarthria Skin- warm & dry Results & Data Results & Data ([facility]) Vital Signs (Past 12 Hours) Vital Signs Temp Pulse Pulse Resp BP BP Pulse Ox 12/03/20 15:42 37 C 75 18 91/56 L 98 12/03/20 14:51 89 12/03/20 11:19 36.8 C 63 18 86/51 L 100 12/03/20 07:43 60 12/03/20 07:07 36.6 C 65 18 99/61 L 99
[2020-12-03] MEDS: ATORVASTATIN 40 MG TAB PO SCH (21:52)
[2020-12-03] MEDS: cephALEXin 500 MG CAP PO SCH (21:52)
[2020-12-04] MEDS: LEVOTHYROXINE SODIUM 75 MCG TABLET PO SCH (05:54)
[2020-12-04 07:18] LABS: BUN Creatinine Ratio 25.2 (10-20); Creatinine Clr Calc Pharmacy 38.4 ml/min; Est GFR (African American) 58.7 ml/min; Est GFR (Non-African American) 50.6 ml/min; Potassium 3.6 mmol/L (3.5-5.1)
[2020-12-04] MEDS: FOLIC ACID 1 MG TAB PO SCH (08:55)
[2020-12-04] MEDS: APIXABAN 2.5 MG TAB PO SCH ×2 (08:55→20:08)
[2020-12-04] MEDS: IRON POLYSACCHARIDE COMPLEX 150 MG CAPSULE PO SCH ×2 (08:55→20:08)
[2020-12-04] MEDS: PANTOprazole 40 MG TAB PO SCH (08:55)
[2020-12-04] MEDS: CITALOPRAM 20 MG TAB PO SCH (08:56)
[2020-12-04] MEDS: cephALEXin 500 MG CAP PO SCH ×2 (08:56→20:09)
[2020-12-04] MEDS: CYANOCOBALAMIN 500 MCG TABLET (VITAMIN B-12) PO SCH (08:56)
[2020-12-04] MEDS: INSULIN ASPART 100 UNITS/ML 3 ML PEN SC SCH ×4 (08:57→20:27)
[2020-12-04] MEDS: INSULIN GLARGINE SOLOSTAR 100 UNITS/ML 3 ML PEN SC SCH ×2 (08:58→20:28)
--- NOTE | 2020-12-04 16:39 | Hospitalist Progress Note ---
Date of Service December 04, 2020 Assessment & Plan (1) Weakness: Present on admission with poor appetite and weakness Possible related to acute illness, UTI and depression CT abd/pelvis showed thick-walled low-density collection within the presacral space which measures 4 cm. clinically much improved appreciate PT/OT eval pt can return home / UTI Urine cx grew E coli Blood cx no growth On keflex PO KOKI resolved Secondary ATN due to dehydration, hypotension poor oral intake Creatinine on admission 2.72 received IVF Creatinine trending down to 1.21 Depression/insomnia pt's symptoms of fatigue /low energy /unable to sleep at night and daytime somnolence could be due above Psych consulted Denies any suicide thought Recommended to increase Citalopram to 20mg daily and Trazadone 25mg HS added Pt said that she slept well last night Continue Citalopram 20mg daily and Trazadone 25mg HS Will need outpatient follow up with psych to titrate med as needed Hx Colectomy with ileostomy bag CT abd/pelvis showed postoperative changes consistent with a prior colectomy and right lower quadrant ileostomy. Soft tissue density/inflammatory change within the lateral aspect of the left lower quadrant has improved. Thick-walled low-density collection within the presacral space which measures 4 cm. This is nonspecific but could represent a postoperative seroma. This is new from the prior study. pt's surgeon in [facility] Dr. El was updated about the CT finding. per Dr. El -normal post op finding and no further testing or procedure needed T2DM (type 2 diabetes mellitus): Most recent Hba1c 6.1 on 09/29/20 Continue insulin sliding scale while in hospital Hypokalemia K replaced Continue monitor BMP Anemia Hgb stable at 11.9 Hx PE/DVT Continue Eliquis 2.5 mg BID DVT prophylaxis. Eliquis Full code Disposition plan to discharge home in next 1-2 days , will benefit with home physical therapy referral pt's sister will be updated over phone Admission and Anticipated Discharge Date Admission Date: December 01, 2020 Subjective Pt was seen and examined for follow up of weakness /UTI : vinod reports she feels much better today walked on the [place] with physical therapist -thinks that she did fairly well weakness and fatigue has improved , no fever or chills appetite fair , no complain of SOB or cough had a good night sleep Review of Systems Review of Systems: All systems reviewed & are unremarkable except as noted in Subjective Physical Exam Physical Exam: Physical exam: General: No acute distress, alert awake oriented x3 HEENT: PERRLA, EOMI, Heart: Regular S1-S2, no carotid bruit, no JVD, no lower extremity edema Lungs: Clear to auscultate, no wheeze or rales Abdomen: Soft nontender, no organomegaly Extremity: No cyanosis, no deformity, normal strength 5 out of 5 with upper and lower Neuro: No focal neurological deficit normal speech, normal visual field, Motor strength : normal both upper and lower extremity, sensation intact Psych: Alert awake oriented x3, normal affect Results & Data Results & Data ([facility]) Vital Signs (Past 12 Hours) Vital Signs Temp Pulse Pulse Pulse Resp BP Pulse Ox 12/04/20 15:15 36.7 C 70 18 98/64 L 98 12/04/20 15:03 80 12/04/20 12:26 58 L 12/04/20 11:21 36.6 C 85 18 92/63 L 100 12/04/20 08:03 36.9 C 61 18 89/59 L 97
[2020-12-04] MEDS: ATORVASTATIN 40 MG TAB PO SCH (20:08)
[2020-12-05] MEDS: LEVOTHYROXINE SODIUM 75 MCG TABLET PO SCH (05:35)
[2020-12-05 06:25] LABS: Creatinine Clr Calc Pharmacy 39.8 ml/min; Est GFR (African American) 61.3 ml/min; Est GFR (Non-African American) 52.9 ml/min
[2020-12-05] MEDS: cephALEXin 500 MG CAP PO SCH ×2 (08:26→20:45)
[2020-12-05] MEDS: APIXABAN 2.5 MG TAB PO SCH ×2 (08:26→20:44)
[2020-12-05] MEDS: PANTOprazole 40 MG TAB PO SCH (08:27)
[2020-12-05] MEDS: CYANOCOBALAMIN 500 MCG TABLET (VITAMIN B-12) PO SCH (08:27)
[2020-12-05] MEDS: FOLIC ACID 1 MG TAB PO SCH (08:27)
[2020-12-05] MEDS: IRON POLYSACCHARIDE COMPLEX 150 MG CAPSULE PO SCH ×2 (08:27→20:45)
[2020-12-05] MEDS: CITALOPRAM 20 MG TAB PO SCH (08:27)
[2020-12-05] MEDS: INSULIN GLARGINE SOLOSTAR 100 UNITS/ML 3 ML PEN SC SCH ×2 (08:29→20:57)
[2020-12-05] MEDS: INSULIN ASPART 100 UNITS/ML 3 ML PEN SC SCH ×4 (08:29→20:58)
--- NOTE | 2020-12-05 14:31 | Hospitalist Progress Note ---
Date of Service December 05, 2020 Assessment & Plan (1) Weakness: Present on admission with poor appetite and weakness Possible related to acute illness, UTI and depression CT abd/pelvis showed thick-walled low-density collection within the presacral space which measures 4 cm. 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 pt reports after sitting and standing she feels dizzy for brief period of time , after resting gets better ordered for Orthostatic BP check started on trial of Midodrine monitor overnight KOKI resolved Secondary ATN due to dehydration, hypotension poor oral intake Creatinine on admission 2.72 received IVF Cr back to baseline Depression/insomnia pt's symptoms of fatigue /low energy /unable to sleep at night and daytime somnolence could be due above Psych consulted Denies any suicide thought Recommended to increase Citalopram to 20mg daily and Trazadone 25mg HS added Pt said that she slept well last night Continue Citalopram 20mg daily and Trazadone 25mg HS Will need outpatient follow up with psych to titrate med as needed Hx Colectomy with ileostomy bag CT abd/pelvis showed postoperative changes consistent with a prior colectomy and right lower quadrant ileostomy. Soft tissue density/inflammatory change within the lateral aspect of the left lower quadrant has improved. Thick-walled low-density collection within the presacral space which measures 4 cm. This is nonspecific but could represent a postoperative seroma. This is new from the prior study. updated By wound care nurse : possible seroma around the stoma , will benefit with out patient dermatology follow up and possible steroid injection CT finding was d/w pt's surgeon in [place] by Dr Moody , T2DM (type 2 diabetes mellitus): Most recent Hba1c 6.1 on 09/29/20 Continue insulin sliding scale while in hospital Hypokalemia K replaced Continue monitor BMP Anemia Hgb stable at 11.9 Hx PE/DVT Continue Eliquis 2.5 mg BID DVT prophylaxis. Eliquis Full code Disposition plan to discharge home in next 1-2 days monitor for orthostatic BP overnight sister updated over phone Admission and Anticipated Discharge Date Admission Date: December 01, 2020 Subjective Pt was seen and examined for follow up of weakness /UTI : pt says she feels much better today , able to walk on hallway no complain of dizzy spell or lightheadedness appetite fair Review of Systems Review of Systems: As per HPI, all 10 systems reviewed, all other ROS negative Physical Exam Physical Exam: Physical exam: General: No acute distress, alert awake oriented x3 HEENT: PERRLA, EOMI, Heart: Regular S1-S2, no carotid bruit, no JVD, no lower extremity edema Lungs: Clear to auscultate, no wheeze or rales Abdomen: Soft nontender, no organomegaly Extremity: No cyanosis, no deformity, normal strength 5 out of 5 with upper and lower Neuro: No focal neurological deficit normal speech, normal visual field, Motor strength : normal both upper and lower extremity, sensation intact Psych: Alert awake oriented x3, normal affect Results & Data Results & Data ([facility]) Vital Signs (Past 12 Hours) Vital Signs Temp Pulse Resp BP Pulse Ox 12/05/20 07:44 36.6 C 59 L 18 96/65 L 99 12/05/20 03:16 62 96/59 L
--- NOTE | 2020-12-05 16:26 | Communication Note ---
Date of Service: December 05, 2020 Patient's orthostatic vitals: Blood pressure lyin/61 Blood pressure sittin/46 Blood pressure standin/49 Review orthostatic vitals with drop of systolic blood pressure 20 mmHg sitting and standing. No reflex tachycardia noted Patient started with midodrine Check orthostatic vitals in a.m. Beth Hester MD
[2020-12-05] MEDS: MIDODRINE HCL 2.5 MG TAB PO SCH (18:12)
[2020-12-05] MEDS: ATORVASTATIN 40 MG TAB PO SCH (20:44)
[2020-12-06] MEDS: LEVOTHYROXINE SODIUM 75 MCG TABLET PO SCH (05:31)
[2020-12-06] MEDS: APIXABAN 2.5 MG TAB PO SCH ×2 (08:36→21:21)
[2020-12-06] MEDS: PANTOprazole 40 MG TAB PO SCH (08:36)
[2020-12-06] MEDS: MIDODRINE HCL 2.5 MG TAB PO SCH ×3 (08:36→17:51)
[2020-12-06] MEDS: FOLIC ACID 1 MG TAB PO SCH (08:36)
[2020-12-06] MEDS: CYANOCOBALAMIN 500 MCG TABLET (VITAMIN B-12) PO SCH (08:36)
[2020-12-06] MEDS: IRON POLYSACCHARIDE COMPLEX 150 MG CAPSULE PO SCH ×2 (08:36→21:21)
[2020-12-06] MEDS: CITALOPRAM 20 MG TAB PO SCH (08:36)
[2020-12-06] MEDS: cephALEXin 500 MG CAP PO SCH ×2 (08:36→21:21)
[2020-12-06] MEDS: INSULIN ASPART 100 UNITS/ML 3 ML PEN SC SCH ×4 (08:37→21:18)
[2020-12-06] MEDS: INSULIN GLARGINE SOLOSTAR 100 UNITS/ML 3 ML PEN SC SCH ×2 (08:38→21:17)
--- NOTE | 2020-12-06 14:19 | Communication Note ---
Date of Service: December 06, 2020 persistent orthostatic hypotension noted on vital check: Supine BP 122/70, standing BP dropped to 84/58 Patient remains asymptomatic. Started on trial of low-dose midodrine 2.5 mg 3 times daily Increase the dose to 5 mg Ordered for IV fluid Patient may need continued hospital stay over the weekend to titrate midodrine dose for significant orthostatic hypotension Beth Hester MD
[2020-12-06] MEDS: SODIUM CHLORIDE 0.9% 1000ML 1,000 ML IV SCH (15:07)
--- NOTE | 2020-12-06 16:25 | Hospitalist Progress Note ---
Date of Service December 06, 2020 Assessment & Plan (1) Weakness: Present on admission with poor appetite and weakness Possible related to acute illness, UTI and depression CT abd/pelvis showed thick-walled low-density collection within the presacral space which measures 4 cm. Orthostatic hypotension: Started on midodrine, needs dose titration as more than 20 mmHg blood pressure drop noted from sitting to standing. UTI Urine cx grew E coli Blood cx no growth On keflex PO Hypotension : SBP remains persistently low in 90's no sign of dehydration , possible autonomic dysfunction due to intermediate Diabetes ? pt reports after sitting and standing she feels dizzy for brief period of time , after resting gets better ordered for Orthostatic BP check started on trial of Midodrine monitor overnight KOKI resolved Secondary ATN due to dehydration, hypotension poor oral intake Creatinine on admission 2.72 received IVF Cr back to baseline Depression/insomnia pt's symptoms of fatigue /low energy /unable to sleep at night and daytime somnolence could be due above Psych consulted Denies any suicide thought Recommended to increase Citalopram to 20mg daily and Trazadone 25mg HS added Pt said that she slept well last night Continue Citalopram 20mg daily and Trazadone 25mg HS Will need outpatient follow up with psych to titrate med as needed Hx Colectomy with ileostomy bag CT abd/pelvis showed postoperative changes consistent with a prior colectomy and right lower quadrant ileostomy. Soft tissue density/inflammatory change within the lateral aspect of the left lower quadrant has improved. Thick-walled low-density collection within the presacral space which measures 4 cm. This is nonspecific but could represent a postoperative seroma. This is new from the prior study. updated By wound care nurse : possible seroma around the stoma , will benefit [facility] out patient dermatology follow up and possible steroid injection CT finding was d/w pt's surgeon in [place] by Dr Moody , T2DM (type 2 diabetes mellitus): Most recent Hba1c 6.1 on 09/29/20 Continue insulin sliding scale while in hospital Hypokalemia K replaced Continue monitor BMP Anemia Hgb stable at 11.9 Hx PE/DVT Continue Eliquis 2.5 mg BID DVT prophylaxis. Eliquis Full code Disposition Continue hospital stay for blood pressure monitoring and midodrine dose adjustments. Admission and Anticipated Discharge Date Admission Date: December 01, 2020 Subjective Is fine, no complaint of dizzy spell or lightheadedness, significant orthostatic BP drop noted, Patient remains asymptomatic Order to increase midodrine 5 mg 3 times daily, will need continued hospital stay to monitor blood pressure Physical Exam Physical Exam: Physical exam: General: No acute distress, alert awake oriented x3 HEENT: PERRLA, EOMI, Heart: Regular S1-S2, no carotid bruit, no JVD, no lower extremity edema Lungs: Clear to auscultate, no wheeze or rales Abdomen: Soft nontender, no organomegaly Extremity: No cyanosis, no deformity, normal strength 5 out of 5 with upper and lower Neuro: No focal neurological deficit normal speech, normal visual field, Motor strength : normal both upper and lower extremity, sensation intact Psych: Alert awake oriented x3, normal affect Results & Data Results & Data ([facility]) Vital Signs (Past 12 Hours) Vital Signs Temp Pulse Resp BP Pulse Ox 12/06/20 15:26 36.8 C 72 16 94/57 L 98 12/06/20 10:15 83/57 L 12/06/20 07:26 36.7 C 59 L 16 99/61 L 98
[2020-12-06] MEDS: ATORVASTATIN 40 MG TAB PO SCH (21:21)
[2020-12-07] MEDS: SODIUM CHLORIDE 0.9% 1000ML 1,000 ML IV SCH (00:46)
[2020-12-07 06:11] LABS: Creatinine Clr Calc Pharmacy 39.4 ml/min; Est GFR (African American) 60.6 ml/min; Est GFR (Non-African American) 52.3 ml/min
[2020-12-07] MEDS: LEVOTHYROXINE SODIUM 75 MCG TABLET PO SCH (06:23)
[2020-12-07] MEDS: MIDODRINE HCL 2.5 MG TAB PO SCH ×3 (08:31→17:16)
[2020-12-07] MEDS: APIXABAN 2.5 MG TAB PO SCH ×2 (08:33→21:31)
[2020-12-07] MEDS: CYANOCOBALAMIN 500 MCG TABLET (VITAMIN B-12) PO SCH (08:33)
[2020-12-07] MEDS: CITALOPRAM 20 MG TAB PO SCH (08:34)
[2020-12-07] MEDS: FOLIC ACID 1 MG TAB PO SCH (08:35)
[2020-12-07] MEDS: PANTOprazole 40 MG TAB PO SCH (08:35)
[2020-12-07] MEDS: cephALEXin 500 MG CAP PO SCH ×2 (08:38→21:30)
[2020-12-07] MEDS: IRON POLYSACCHARIDE COMPLEX 150 MG CAPSULE PO SCH ×2 (08:38→21:26)
[2020-12-07] MEDS: INSULIN ASPART 100 UNITS/ML 3 ML PEN SC SCH ×4 (08:59→21:34)
[2020-12-07] MEDS: INSULIN GLARGINE SOLOSTAR 100 UNITS/ML 3 ML PEN SC SCH ×2 (09:06→21:33)
--- NOTE | 2020-12-07 16:36 | Hospitalist Progress Note ---
Date of Service December 07, 2020 Assessment & Plan (1) Weakness: Present on admission with poor appetite and weakness Possible related to acute illness, UTI and depression CT abd/pelvis showed thick-walled low-density collection within the presacral space which measures 4 cm. Orthostatic hypotension: Started on midodrine, needs dose titration as more than 20 mmHg blood pressure drop noted from sitting to standing. 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 pt reports after sitting and standing she feels dizzy for brief period of time , after resting gets better ordered for Orthostatic BP check started on trial of Midodrine monitor overnight KOKI resolved Secondary ATN due to dehydration, hypotension poor oral intake Creatinine on admission 2.72 received IVF Cr back to baseline Depression/insomnia pt's symptoms of fatigue /low energy /unable to sleep at night and daytime somnolence could be due above Psych consulted Denies any suicide thought Recommended to increase Citalopram to 20mg daily and Trazadone 25mg HS added Pt said that she slept well last night Continue Citalopram 20mg daily and Trazadone 25mg HS Will need outpatient follow up with psych to titrate med as needed Hx Colectomy with ileostomy bag CT abd/pelvis showed postoperative changes consistent with a prior colectomy and right lower quadrant ileostomy. Soft tissue density/inflammatory change within the lateral aspect of the left lower quadrant has improved. Thick-walled low-density collection within the presacral space which measures 4 cm. This is nonspecific but could represent a postoperative seroma. This is new from the prior study. updated By wound care nurse : possible seroma around the stoma , will benefit [facility] out patient dermatology follow up and possible steroid injection CT finding was d/w pt's surgeon in [place] by Dr Moody , T2DM (type 2 diabetes mellitus): Most recent Hba1c 6.1 on 09/29/20 Continue insulin sliding scale while in hospital Hypokalemia K replaced Continue monitor BMP Anemia Hgb stable at 11.9 Hx PE/DVT Continue Eliquis 2.5 mg BID DVT prophylaxis. Eliquis Full code Disposition Continue hospital stay for blood pressure monitoring and midodrine dose adjustments. Admission and Anticipated Discharge Date Admission Date: December 01, 2020 Physical Exam Physical Exam: Physical exam: General: No acute distress, alert awake oriented x3 HEENT: PERRLA, EOMI, Heart: Regular S1-S2, no carotid bruit, no JVD, no lower extremity edema Lungs: Clear to auscultate, no wheeze or rales Abdomen: Soft nontender, no organomegaly Extremity: No cyanosis, no deformity, normal strength 5 out of 5 with upper and lower Neuro: No focal neurological deficit normal speech, normal visual field, Motor strength : normal both upper and lower extremity, sensation intact Psych: Alert awake oriented x3, normal affect Results & Data Results & Data ([facility]) Vital Signs (Past 12 Hours) Vital Signs Temp Pulse Pulse Resp BP Pulse Ox 12/07/20 15:30 37 C 59 L 17 101/60 100 12/07/20 12:00 37.3 C 90 13 105/58 L 100 12/07/20 08:08 36.5 C 56 L 14 100/60 98 12/07/20 07:30 36.6 C 59 L 18 93/63 L 99
[2020-12-07] MEDS: ATORVASTATIN 40 MG TAB PO SCH (21:30)
[2020-12-08] MEDS: LEVOTHYROXINE SODIUM 75 MCG TABLET PO SCH (05:53)
[2020-12-08] MEDS: CYANOCOBALAMIN 500 MCG TABLET (VITAMIN B-12) PO SCH (08:17)
[2020-12-08] MEDS: IRON POLYSACCHARIDE COMPLEX 150 MG CAPSULE PO SCH ×2 (08:18→20:43)
[2020-12-08] MEDS: FOLIC ACID 1 MG TAB PO SCH (08:18)
[2020-12-08] MEDS: PANTOprazole 40 MG TAB PO SCH (08:18)
[2020-12-08] MEDS: MIDODRINE HCL 2.5 MG TAB PO SCH ×3 (08:18→17:14)
[2020-12-08] MEDS: cephALEXin 500 MG CAP PO SCH ×2 (08:19→20:44)
[2020-12-08] MEDS: APIXABAN 2.5 MG TAB PO SCH ×2 (08:19→20:44)
[2020-12-08] MEDS: CITALOPRAM 20 MG TAB PO SCH (08:46)
[2020-12-08] MEDS: INSULIN ASPART 100 UNITS/ML 3 ML PEN SC SCH ×4 (08:47→20:43)
[2020-12-08] MEDS: INSULIN GLARGINE SOLOSTAR 100 UNITS/ML 3 ML PEN SC SCH ×2 (08:48→20:40)
--- NOTE | 2020-12-08 16:39 | Hospitalist Progress Note ---
Date of Service December 08, 2020 Assessment & Plan (1) Weakness: Present on admission with poor appetite and weakness - Possible related to acute illness, UTI and depression CT abd/pelvis showed thick-walled low-density collection within the presacral space which measures 4 cm. Orthostatic hypotension: Possible secondary to autonomic dysfunction in the setting of chronic type 2 diabetes Started on midodrine, UTI Urine cx grew E coli On keflex PO complete 5 days treatment Hypotension : possible autonomic dysfunction due to half-way Diabetes ? Blood pressure stabilized after starting on midodrine ordered for Orthostatic BP check started on trial of Midodrine monitor overnight KOKI resolved Secondary ATN due to dehydration, hypotension poor oral intake Creatinine on admission 2.72 received IVF Cr back to baseline Depression/insomnia pt's symptoms of fatigue /low energy /unable to sleep at night and daytime somnolence could be due above Psych consulted Denies any suicide thought Recommended to increase Citalopram to 20mg daily and Trazadone 25mg HS added Pt said that she slept well last night Continue Citalopram 20mg daily and Trazadone 25mg HS Will need outpatient follow up with psych to titrate med as needed Hx Colectomy with ileostomy bag CT abd/pelvis showed postoperative changes consistent with a prior colectomy and right lower quadrant ileostomy. Soft tissue density/inflammatory change within the lateral aspect of the left lower quadrant has improved. Thick-walled low-density collection within the presacral space which measures 4 cm. This is nonspecific but could represent a postoperative seroma. This is new from the prior study. updated By wound care nurse : possible seroma around the stoma , will benefit with out patient dermatology follow up and possible steroid injection CT finding was d/w pt's surgeon in [place] by Dr Moody , T2DM (type 2 diabetes mellitus): Most recent Hba1c 6.1 on 09/29/20 Continue insulin sliding scale while in hospital Hypokalemia K replaced Continue monitor BMP Anemia Hgb stable at 11.9 Hx PE/DVT Continue Eliquis 2.5 mg BID DVT prophylaxis. Eliquis Full code Disposition Plan for discharge home with home health tomorrow Admission and Anticipated Discharge Date Admission Date: December 01, 2020 Subjective Patient has no new complaint, no dizzy spell or lightheadedness Ambulating okay, blood pressures remained stable after treatment of midodrine No severe shortness of breath, no fever or chills Results & Data Results & Data ([facility]) Vital Signs (Past 12 Hours) Vital Signs Temp Pulse Pulse Resp BP Pulse Ox 12/08/20 14:51 37.2 C 62 18 92/51 L 97 12/08/20 13:15 37.1 C 60 14 102/55 L 99 12/08/20 07:36 36.5 C 58 L 13 105/56 L 99
[2020-12-08] MEDS: ATORVASTATIN 40 MG TAB PO SCH (20:40)
[2020-12-09] MEDS: LEVOTHYROXINE SODIUM 75 MCG TABLET PO SCH (06:06)
[2020-12-09 07:11] LABS: Est GFR (African American) 75.2 ml/min; Est GFR (Non-African American) 64.9 ml/min
[2020-12-09] MEDS: CYANOCOBALAMIN 500 MCG TABLET (VITAMIN B-12) PO SCH (07:54)
[2020-12-09] MEDS: FOLIC ACID 1 MG TAB PO SCH (07:54)
[2020-12-09] MEDS: IRON POLYSACCHARIDE COMPLEX 150 MG CAPSULE PO SCH (07:54)
[2020-12-09] MEDS: PANTOprazole 40 MG TAB PO SCH (07:54)
[2020-12-09] MEDS: cephALEXin 500 MG CAP PO SCH (07:54)
[2020-12-09] MEDS: CITALOPRAM 20 MG TAB PO SCH (07:54)
[2020-12-09] MEDS: MIDODRINE HCL 2.5 MG TAB PO SCH ×2 (07:55→12:12)
[2020-12-09] MEDS: APIXABAN 2.5 MG TAB PO SCH (07:55)
[2020-12-09] MEDS: INSULIN GLARGINE SOLOSTAR 100 UNITS/ML 3 ML PEN SC SCH (07:56)
[2020-12-09] MEDS: INSULIN ASPART 100 UNITS/ML 3 ML PEN SC SCH ×2 (07:57→12:10)
--- NOTE | 2020-12-09 11:18 | Hospitalist Progress Note ---
Date of Service December 09, 2020 Assessment & Plan (1) Weakness: Present on admission with poor appetite and weakness -Interim has completely resolved: Possible related to acute illness, UTI and depression Orthostatic hypotension: Possible secondary to autonomic dysfunction in the setting of chronic type 2 diabetes Started on midodrine, BP has been stable, patient denies of any dizzy spell or lightheadedness with standing up. UTI Urine cx grew E coli Completed 5 days of p.o. Keflex treatment Hypotension : possible autonomic dysfunction due to senior living Diabetes ? Blood pressure stabilized after starting on midodrine Will be discharged on 5 mg 3 times daily scheduled dose of midodrine KOKI resolved Secondary ATN due to dehydration, hypotension poor oral intake Creatinine on admission 2.72 received IVF Cr back to baseline Depression/insomnia pt's symptoms of fatigue /low energy /unable to sleep at night and daytime somnolence could be due above Psych consulted Denies any suicide thought Recommended to increase Citalopram to 20mg daily and Trazadone 25mg HS added Patient's depressive symptoms has been much improved, having good night sleep with trazodone Will be discharged on citalopram 20mg daily and Trazadone 25mg HS Will need outpatient follow up with psych to titrate med as needed Hx Colectomy with ileostomy bag CT abd/pelvis showed postoperative changes consistent with a prior colectomy and right lower quadrant ileostomy. Soft tissue density/inflammatory change within the lateral aspect of the left lower quadrant has improved. Thick-walled low-density collection within the presacral space which measures 4 cm. This is nonspecific but could represent a postoperative seroma. This is new from the prior study. updated By wound care nurse : possible seroma around the stoma , will benefit with out patient dermatology follow up and possible steroid injection CT finding was d/w pt's surgeon in [place] by Dr Moody , T2DM (type 2 diabetes mellitus): Most recent Hba1c 6.1 on 09/29/20 Continue insulin sliding scale while in hospital Hypokalemia Corrected Anemia Hgb stable at 11.9 Hx PE/DVT Continue Eliquis 2.5 mg BID DVT prophylaxis. Eliquis Full code Disposition Stable to be discharged home with home health today. Admission and Anticipated Discharge Date Admission Date: December 01, 2020 Subjective Patient has no new complaint, no dizzy spell or lightheadedness Very well, blood pressure been stable, No fever chills no cough no dyspnea exertion Walked on the hallway with rolling walker without any dizzy spell lightheadedness, no gait disturbance Stable to be discharged home today Review of Systems Review of Systems: All systems reviewed & are unremarkable except as noted in Subjective Physical Exam Physical Exam: Physical exam: General: No acute distress, alert awake oriented x3 HEENT: PERRLA, EOMI, Heart: Regular S1-S2, no carotid bruit, no JVD, no lower extremity edema Lungs: Clear to auscultate, no wheeze or rales Abdomen: Soft nontender, no organomegaly Extremity: No cyanosis, no deformity, normal strength 5 out of 5 with upper and lower Neuro: No focal neurological deficit normal speech, normal visual field, Motor strength : normal both upper and lower extremity, sensation intact Psych: Alert awake oriented x3, normal affect Results & Data Results & Data ([facility]) Vital Signs (Past 12 Hours) Vital Signs Temp Pulse Pulse Pulse Resp BP BP 12/09/20 11:07 37.0 C 60 67 59 L 16 96/62 L 92/54 L 12/09/20 11:00 37.0 C 60 67 59 L 16 96/62 L 92/54 L 12/09/20 10:58 37.0 C 60 67 59 L 16 96/62 L 92/54 L 12/09/20 07:17 37.0 C 67 16 92/54 L Pulse Ox 12/09/20 11:07 98 12/09/20 11:00 98 12/09/20 10:58 98 12/09/20 07:17 98
--- NOTE | 2020-12-09 11:21 | Discharge Summary ---
Date of Service December 09, 2020 Admission HPI Per Admitting Provider History obtained from patient and records. 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 Last confinement [facility] October 02 to October 16, 2020 for continued L GIB secondary to ulcerative colitis flareup. Patient underwent intersphincteric proctectomy. Postop intra-abdominal abscess noted a few days after surgery. Patient underwent IR guided drainage. Postop Cipro Flagyl course as per documentation. Patient discharged to [facility] for rehab where she stayed for a few weeks before transitioning home 3 weeks ago. Poor appetite since being home a few weeks ago. Mild achy abdominal pain, some nausea. No change in ostomy output. Admits to bad depression but denies suicidality. No OTC NSAID intake. Outpatient GI provider received a call from patient's friend/caregiver regarding concerns about patient's ability to care for stoma independently. Outpatient wound/ostomy clinic referral recommended. 2 weeks ago patient noted dysuria symptoms without unusual abdominal pain. Macrodantin started a few days later for UTI which later grew E. coli. (intermediate Cipro resistance) Patient consulted ER for worsening weakness symptoms. Medical History as above Surgical History : Breast biopsy, appendectomy, tonsillectomy, intra-abdominal abscess drainage, laparoscopic colectomy with ileostomy Family History : Pancreatic cancer, Crohn's disease, DM, heart disease Personal/Social history : Non-smoker, no EtOH intake, retired [employer] employee, lives by herself with cat. Principal Diagnosis Generalized weakness /fatigue -improved UTI Acute renal failure-resolved Depression /Insomnia Discharge Exam Physical exam: General: No acute distress, alert awake oriented x3 HEENT: PERRLA, EOMI, Heart: Regular S1-S2, no carotid bruit, no JVD, no lower extremity edema Lungs: Clear to auscultate, no wheeze or rales Abdomen: Soft nontender, no organomegaly/colostomy bag present Extremity: No cyanosis, no deformity, normal strength 5 out of 5 with upper and lower Neuro: No focal neurological deficit normal speech, normal visual field, Motor strength : normal both upper and lower extremity, sensation intact Psych: Alert awake oriented x3, normal affect Discharge Data Allergies Allergy/AdvReac Type Severity Reaction Status Date / Time aztreonam [From Azactam] Allergy Intermediate Flushed Verified 12/01/20 16:55 /itching dorzolamide Allergy Mild EYE LID Verified 12/01/20 16:55 SWELLING latanoprost Allergy Mild EYE LID Verified 12/01/20 16:55 SWELLING Penicillins Allergy Mild Rash Verified 12/01/20 16:55 timolol Allergy Mild EYE LID Verified 12/01/20 16:55 SWELLING amoxicillin [From Amoxil] Allergy Unknown Unknown Verified 12/01/20 16:55 brimonidine Allergy Unknown Unknown Verified 12/01/20 16:55 tafluprost Allergy Unknown Unknown Verified 12/01/20 16:55 thimerosal Allergy Unknown Unknown Verified 12/01/20 16:55 empagliflozin AdvReac Severe Confusion Verified 12/01/20 16:55 [From Jardiance] Consultations 12/01/20 21:21 ED Decision to Admit Stat 12/01/20 22:49 Consult Psychiatry Routine Ordered Studies 12/01/20 16:27 CT abd pelvis oral con only Stat Total Time Total Time Spent Total Time Spent (In Minutes): 35 mins Discharge Plan Discharge Items Patient Disposition: Home - Home Health Services Reason For Visit: ARF Discharge Diagnosis: Generalized weakness /fatigue -improved UTI Acute renal failure-resolved Depression /Insomnia Activity: Resume your previous activity Non-emergency contact: Primary Care Provider Call non-emergency contact if: you have any medication questions Follow-up/Referrals: Jignesh Rodriges MD [Primary Care Provider] - (Date & Time 12/12/2020 11:20 AM Provider Heather Bolton MD Department Family Practice [facility] ) Diet: Carb Consistent or DM2 Addtl Attending Provider Instructions: Please take all medications as instructed on discharge list below. It is recommended that you follow-up with your primary care physician within 1-2 weeks of hospital discharge to ensure you are still doing well. Please call if you have any questions or problems. You can reach a [facility] hospitalist on duty at [facility] 24 hours a day by calling [phone] For depression and insomnia: Citalopram dose increased to 20 mg daily Continue take as needed trazodone 25 mg at night for insomnia Will need referral to outpatient psychiatric follow-up for further adjustment of antidepressants Addtl Auto Body Man Provider Instructions: Do not take group of medications belonging to NSAIDs group -can cause worsening of your kidney function. List Of these medications includes but not limited to: Aspirin Diclofenac Ibuprofen, Motrin, Advil Toradol,ketorolac Naproxen, Aleve, Naprosyn You can take Tylenol as needed for pain or fever When buying [id number] pain medications please consult with pharmacy if you are not sure regarding ingredients, as a lot of the pain medications have combination of NSAIDs and Tylenol. Pending Studies at Discharge: No Stand-Alone Forms: My [facility] GreenNote, Smoking Cessation Medications and DC Order Prescriptions: New citalopram 20 mg Tablet 20 mg PO QAM 30 Days Qty: 30 RF: 0 trazodone 50 mg Tablet 25 mg PO HS PRN (Reason: insomnia) Qty: 30 RF: 2 midodrine 5 mg tablet 5 mg PO TID Qty: 90 RF: 3 Continued Tresiba FlexTouch U-200 200 unit/mL (3 mL) insulin pen 30 unit SUBCUT QAM RF: 0 levothyroxine 75 mcg Tablet 75 mcg PO QAM RF: 0 cholecalciferol (vitamin D3) [Vitamin D3] 1,000 unit Tablet 1,000 unit PO QAM RF: 0 calcium citrate-vitamin D3 [Citracal-D3 Petites] 200 mg calcium -250 unit Tablet 1 tab PO QAM RF: 0 atorvastatin 40 mg tablet 40 mg PO HS RF: 0 pantoprazole 40 mg tablet,delayed release (DR/EC) 40 mg PO QAM RF: 0 acetaminophen [Tylenol] 325 mg Tablet 650 mg PO Q4H MDD 3000 MG APAP/24 HOURS PRN (Reason: Fever Or Pain) RF: 0 polysaccharide iron complex [Ferrex 150] 150 mg iron Capsule 150 mg PO BID RF: 0 oxycodone 5 mg Tablet 5 mg PO Q6H PRN (Reason: Pain, Severe) RF: 0 One-A-Day Womens Formula 18 mg iron-400 mcg-500 mg Tablet 1 tab PO QAM RF: 0 cyanocobalamin (vitamin B-12) [Vitamin B-12] 1,000 mcg Tablet 1,000 mcg PO DAILY RF: 0 folic acid 1 mg Tablet 1 mg PO DAILY RF: 0 ondansetron 4 mg Tablet,Disintegrating 4 mg PO Q6H PRN (Reason: Nausea) RF: 0 Eliquis 2.5 mg tablet 2.5 mg PO BID RF: 0 Discontinued citalopram 10 mg Tablet 10 mg PO QAM RF: 0 Discharge Orders: Discharge Order (Routine); Ordered 12/09/20 Ordered By: Beth Hester Admission Data Admit Date/Time: 12/01/20 21:29 Attending Provider: Beth Hester Admit Provider: Inder Gonzales Primary Care Provider: Jignesh Rodriges Other Providers: [facility] ; Aj Aguilar ; Inder Gonzales ; Dr Joni ; Ora Gaviria ; Jignesh Polanco Other Interventions: Discharge Summary Assessment (RN) Last Done: 12/09/20 11:07
== END 2020-12-09 12:35 | disposition home health service (06) | DRG 689 ==
LOC: ED 15:51 → SUATTDRO 21:29 → 2N 21:29